=== PATIENT | female | born 1950 | race Caucasian/White ===

== ENCOUNTER 2018-06-16 00:53 | Outpatient (CLI) | payer MEDICARE, OTHER, SELFPAY ==
--- NOTE | 2018-06-16 08:00 | DI.MAMMO_ITS ---
SYMPTOM/DIAGNOSIS: SCREENING, Z12.39 MAMMOGRAMS: Mammograms were interpreted according to the usual protocol including computer analysis with CAD system, tomosynthesis and C view imaging. The breasts are of moderate density with fairly symmetrical distribution of fibroglandular tissue. No dominant mass or clumped microcalcification is identified in either breast. Note is made of biopsy clips in the medial aspect of the left breast as noted on previous examinations. The examination is compared with previous examinations including 12/2015 and there has been no gross interval change in appearance in comparison with the previous studies. CONCLUSION: No specific evidence of malignancy at this time. Routine screening examinations are suggested at yearly intervals due to the family history of breast carcinoma. Category 1. Breast density, category B. MQSA ASSESSMENT OF FINDINGS: Negative. Category 1. Patient will receive a letter notifying them of these results. BI-RADS category B. There are scattered areas of fibroglandular density.
== END 2018-06-16 01:13 ==
PROVIDERS: PCP Family Medicine; Visit Provider Family Medicine
DX: Z12.31 Encounter for screening mammogram for malignant neoplasm of breast (principal); Z80.3 Family history of malignant neoplasm of breast
CPT/HCPCS: 77063; 77067

== ENCOUNTER → 2018-11-20 10:18 | Outpatient (BNVA) | payer MEDICARE, OTHER, SELFPAY | PROVIDERS: PCP Family Medicine; Referring Provider Family Medicine; Visit Provider Physical Therapy Assistant | DX: Z86.010 Personal history of colon polyps (principal); Z12.11 Encounter for screening for malignant neoplasm of colon; I10 Essential (primary) hypertension ==

== ENCOUNTER 2018-12-01 11:09 | Observation (INO) | payer MEDICARE, OTHER, SELFPAY ==
[2018-12-01] VITALS (49 sets, daily range): BP systolic 128–182; BP diastolic 63–101; PULSE 67–91; RESP 12–77; TEMP 36.2–37.1; O2SAT 95–100
--- NOTE | 2018-12-01 11:17 | DI.RAD_ITS ---
SYMPTOMS/DIAGNOSIS: CHEST PAIN AP AND LATERAL CHEST: The heart is at the upper limits of normal in size. The lungs appear grossly clear. No pleural effusion seen. CONCLUSION: No evidence of acute disease.
--- NOTE | 2018-12-01 11:17 | DI.CT_ITS ---
SYMPTOMS/DIAGNOSIS: ALTERED MENTAL STATUS, TRANSIENT NOW AT BASELINE WITH HEADACHE CRANIAL CT (WITHOUT CONTRAST): A noncontrast cranial CT was performed. The ventricular system is normal in appearance. There is no evidence of an intracranial mass lesion. There is no evidence of a subdural or epidural hematoma. No focal areas of decreased attenuation are seen. CONCLUSION: Normal noncontrast Cranial CT.
[2018-12-01 11:37] LABS: Abs Immature Grans 0.07 k/cumm (0.0-0.09); Absolute Basophil Count 0.03 k/cumm (0.0-0.2); Absolute Eosinophil Count 0.06 k/cumm (0.0-0.7); Absolute Lymphocyte Count 1.36 k/cumm (1.2-3.4); Absolute Monocyte Count 0.81 k/cumm (0.11-0.7); Absolute Neutrophil Count 4.89 k/cumm (1.2-6.7); Basophils % 0.4; Eosinophils % 0.8; HCT 44.3 % (36.0-46.0); HGB 14.7 g/dL (12.0-15.5); Lymphocytes % 18.8; Mean Corp. HGB Concentration 33.2 g/dL (32.0-36.0); Mean Corpuscular Hemoglobin 31.1 pg (27.0-33.0); Mean Corpuscular Volume 93.7 fL (80-95); Mean Platelet Volume 10.6 fL (8.0-11.0); Monocytes % 11.2; Neutrophils % 67.8; Platelet Count 189 x1000/uL (130-400); RBC 4.73 m/cumm (4.00-5.20); RBC Distribution Width 12.9 % (11.7-14.6); White Blood Cell Count 7.22 k/cumm (4.4-10.8)
--- NOTE | 2018-12-01 11:37 | W.ED.GENAD ---
Discharge Plan Disposition Condition: Stable Discharge Details Chief Complaint: Chest Pain Admit Date/Time: 12/01/18 14:25 Admit Provider: Aguilar Blake Attending Provider: Noel Moreno Primary Care Provider: Anat Vicente ED Provider: Queenie Calderon Discharge Instructions Activity:: No strenuous activity Equipment/Supplies:: No Equipment Needed Diet:: Heart Healthy Discharge Orders Discharge Orders: Discharge Order (Routine); Ordered 12/02/18 Ordered By: Noel Moreno Discharge Data Discharge Date/Time-TO BE ENTERED AT DEPARTURE: 12/01/18 15:46 Medical Decision Making Tena Nickerson is a 68 y/o woman with history of hypertension, high cholesterol, coronary artery disease, polymyalgia rheumatica, temporal arteritis who presented to the emergency department with chest pain and possible report of garbled speech. On exam patient is neurologically nonfocal and appears well and nontoxic. Concern for ACS versus PE versus influenza versus other. Exam/history is not consistent with acute aortic pathology, sepsis. plan for EKG, screening labs, chest x-ray. Will obtain CT head given report of garbled speech and no family currently in the emergency department. Patient took patient took 243 mg of aspirin prior to arrival. Patient had rapid resolution of her chest pain prior to receiving nitroglycerin, none was given. However, she developed what she described as severe pain in her right temporal region. Patient reports that she has a history of temporal arteritis, and has had similar pain in the past, but not for 5 years since starting prednisone. She currently takes 5 mg of prednisone daily. Patient reports that pain is in the temporal region and behind her right eye, and radiates into her right neck. She reports reports that the pain is severe as above, but notes that it does not seem quite as bad as when she was first diagnosed with temporal arteritis years ago. Plan for CTA of the head and neck in addition to CT of the head. Patient reports that morphine improved her pain. CT head, CTA head and neck reported by radiology as negative. Patient reporting some return of her temporal headache, now in episcopalian area bilaterally. Patient reports that this is not the worst headache of her life, however she has not had a similar headache for years. Not maximal at onset. Elevated. That she is not however not having any current chest pain. Patient's family is at bedside, and they note that patient has been complaining of intermittent chest pressure for the last few days, also with shortness of breath. They state that this is not typical for her. I discussed risks of additional IV contrast dye at this point the patient and her family, and they elect to go forward with CT of the chest. Plan for admission at this time for chest pain, bilateral temporal headache in setting of temporal arteritis, anion gap of 16 of unknown etiology. Clinical Impresion: Chest pain Disposition: [facility] Medical Records Medical records reviewed: Yes I reviewed the patient's medical records. Imaging Data Radiologic Study: Attestation: I personally reviewed and interpreted this imaging study as follows: Radiologist's impression: CRANIAL CT (WITHOUT CONTRAST): A noncontrast cranial CT was performed. The ventricular system is normal in appearance. There is no evidence of an intracranial mass lesion. There is no evidence of a subdural or epidural hematoma. No focal areas of decreased attenuation are seen. CONCLUSION: Normal noncontrast Cranial CT. CT ANGIOGRAM NECK AND HEAD: CT angiography was performed with multi slice acquisition and multi planar and 3D reconstruction. CT angiography of the cervicocranial region was performed. Images obtained through the lung bases show no focal lesion. Superior mediastinal structures appear intact. The aortic arch is unremarkable as visualized. Common, internal and external carotid arteries appear intact bilaterally. No evidence of aneurysm, dissection or significant stenosis of common or internal carotid arteries on either side. The vertebral arteries appear intact bilaterally with right dominant pattern. The basilar artery appears intact. No evidence of aneurysm, stenosis, dissection or occlusion of intracranial major arteries including internal carotid artery, middle, anterior or posterior cerebral arteries on either side. The major branches appear intact throughout. No enhancing lesion identified in the brain. The orbital structures appear normal. No cervical mass or adenopathy. The tracheal laryngeal structures appear intact. CONCLUSION: Negative CT Angiography neck and head. AP AND LATERAL CHEST: The heart is at the upper limits of normal in size. The lungs appear grossly clear. No pleural effusion seen. CONCLUSION: No evidence of acute disease. CT chest PE over the phone by radiology: Negative for PE or other acute process Lab Data Lab results reviewed: Yes I reviewed the patient's lab results. 12/01/18 11:20 Nose Influenza Types A,B Antigen - Final Laboratory Tests Range/Units 12/01/18 12/01/18 12/01/18 11:20 11:20 11:20 WBC (4.4-10.8) k/cumm 7.22 RBC (4.00-5.20) m/cumm 4.73 Hgb (12.0-15.5) g/dL 14.7 Hct (36.0-46.0) % 44.3 MCV (80-95) fL 93.7 MCH (27.0-33.0) pg 31.1 MCHC (32.0-36.0) g/dL 33.2 RDW (11.7-14.6) % 12.9 Plt Count (130-400) x1000/uL 189 MPV (8.0-11.0) fL 10.6 Immature Gran % 1.0 Neutrophils % 67.8 Lymphocytes % 18.8 Monocytes % 11.2 Eosinophils % 0.8 Basophils % 0.4 Absolute Neutrophils (1.2-6.7) k/cumm 4.89 Absolute Lymphocytes (1.2-3.4) k/cumm 1.36 Absolute Monocytes (0.11-0.7) k/cumm 0.81 H Absolute Eosinophils (0.0-0.7) k/cumm 0.06 Absolute Basophils (0.0-0.2) k/cumm 0.03 ESR (0-30) MM/HR D-Dimer (<500) ng/mlFEU 1088 H Sodium (136-145) mmol/L 136 Potassium (3.5-5.1) mmol/L 3.5 Chloride (98-107) mmol/L 99 Carbon Dioxide (21.0-32.0) mmol/L 20.7 L Anion Gap (3-11) mmol/L 16.3 H BUN (7-18) mg/dL 18 Creatinine (0.55-1.02) mg/dL 1.01 Estimated GFR/1.73 m2 (mL/min/1.73m2) 54.35 Glucose (70-100) mg/dL 98 Calcium (8.5-10.1) mg/dL 9.2 Magnesium (1.8-2.4) mg/dL 1.8 Total Bilirubin (0.2-1.0) mg/dL 0.4 AST (15-37) U/L 10 L ALT (12-78) U/L 26 Alkaline Phosphatase (46-116) U/L 84 Troponin I (0.00-0.06) ng/mL < 0.02 C-Reactive Protein (0.0-0.3) mg/dL Total Protein (6.4-8.2) g/dL 7.6 Albumin (3.4-5.0) g/dL 3.6 Range/Units 12/01/18 12/01/18 11:20 11:20 WBC (4.4-10.8) k/cumm RBC (4.00-5.20) m/cumm Hgb (12.0-15.5) g/dL Hct (36.0-46.0) % MCV (80-95) fL MCH (27.0-33.0) pg MCHC (32.0-36.0) g/dL RDW (11.7-14.6) % Plt Count (130-400) x1000/uL MPV (8.0-11.0) fL Immature Gran % Neutrophils % Lymphocytes % Monocytes % Eosinophils % Basophils % Absolute Neutrophils (1.2-6.7) k/cumm Absolute Lymphocytes (1.2-3.4) k/cumm Absolute Monocytes (0.11-0.7) k/cumm Absolute Eosinophils (0.0-0.7) k/cumm Absolute Basophils (0.0-0.2) k/cumm ESR (0-30) MM/HR 36 H D-Dimer (<500) ng/mlFEU Sodium (136-145) mmol/L Potassium (3.5-5.1) mmol/L Chloride (98-107) mmol/L Carbon Dioxide (21.0-32.0) mmol/L Anion Gap (3-11) mmol/L BUN (7-18) mg/dL Creatinine (0.55-1.02) mg/dL Estimated GFR/1.73 m2 (mL/min/1.73m2) Glucose (70-100) mg/dL Calcium (8.5-10.1) mg/dL Magnesium (1.8-2.4) mg/dL Total Bilirubin (0.2-1.0) mg/dL AST (15-37) U/L ALT (12-78) U/L Alkaline Phosphatase (46-116) U/L Troponin I (0.00-0.06) ng/mL C-Reactive Protein (0.0-0.3) mg/dL 0.76 H Total Protein (6.4-8.2) g/dL Albumin (3.4-5.0) g/dL ECG Data Attestation: I personally reviewed and interpreted this ECG (s) as follows: Interpretation: EKG shows sinus rhythm at 84, normal axis, diffuse ST changes seen on prior EKG 10/17, nondiagnostic EKG HPI General Mode of arrival: EMS. Date/Time Provider Initiated Documentation: 12/01/18 11:17. Limitations to Documentation: no limitations. Information obtained by: patient, family, EMS, RN notes reviewed and old records reviewed. HPI Narrative: Tena Nickerson is a 68 y/o woman with history of polymyalgia rheumatica, sleep apnea, hypertension, coronary artery disease, GERD, high cholesterol presenting to the emergency room with chest pain. Patient reports that this morning she developed mild chest pressure retrosternally, nonradiating. Nonexertional, no modifiers. There was report from EMS that family had called 911 because patient seemed to have a change in her speech, but patient denies this. She denies any loss of consciousness or confusion. She denies having any other pain. She reports that she has felt tired and had a dry cough yesterday and today, but otherwise has not had other symptoms. No fevers, no shortness of breath, no cough, no vomiting, no diarrhea, no rash, no extremity weakness, no numbness/tingling. No recent travel or immobilization. Related Data Home Medications Medication Instructions Recorded Confirmed metoprolol succinate 25 mg PO DAILY #90 tab 12/01/12 12/01/18 pantoprazole 40 mg PO DAILY #30 tab-cap 03/11/13 12/01/18 simvastatin 20 mg PO DAILY #90 tab 03/11/13 12/01/18 chlorthalidone 12.5 mg PO DAILY #45 tab 06/15/13 12/01/18 meclizine 12.5 mg PO Q6H PRN #5 tab 05/19/14 12/01/18 acetaminophen [Tylenol] 650 mg PO Q6H PRN tab-cap 11/23/14 12/01/18 amlodipine 5 mg PO DAILY tab-cap 11/23/14 12/01/18 calcium carbonate-vitamin D3 1 ea PO BID 11/23/14 12/01/18 [Os-Tony 500 + D3] albuterol sulfate HFA 90 1 puff IH Q6H PRN 09/30/18 12/01/18 mcg/actuation aerosol inhaler hydroxyzine HCl 25 mg tablet 25 mg PO BID PRN tab 09/30/18 12/01/18 ipratropium-albuterol 0.5 mg-3 3 ml IH Q8H 09/30/18 11/20/18 mg(2.5 mg base)/3 mL nebulization soln prednisone 1 mg tablet 5 mg PO DAILY tab 09/30/18 12/01/18 trazodone 50 mg tablet See Rx Instructions .ROUTE .COMPLEX 09/30/18 12/01/18 aspirin [Aspir-Low] 1 mg PO DAILY 12/01/18 12/01/18 diclofenac sodium [Voltaren] 2 g TOPICAL QID 12/01/18 12/01/18 fluticasone propion-salmeterol 1 inh INHALATION Q12H 12/01/18 12/01/18 levalbuterol tartrate [Xopenex HFA] 2 inh INHALATION Q6H 12/01/18 12/01/18 citalopram 40 mg PO DAILY #90 tab 12/02/18 12/01/18 levofloxacin 500 mg PO DAILY #7 tab 12/02/18 prednisone 10 mg PO DAILY #14 tab 12/02/18 Previous Rx's Medication Instructions Recorded meclizine 12.5 mg PO Q6H PRN #5 tab 05/19/14 citalopram 40 mg PO DAILY #90 tab 12/02/18 levofloxacin 500 mg PO DAILY #7 tab 12/02/18 prednisone 10 mg PO DAILY #14 tab 12/02/18 Allergies Allergy/AdvReac Type Severity Reaction Status Date / Time clarithromycin Allergy Severe HIVES Verified 11/20/18 10:28 Penicillins Allergy Severe HIVES Verified 11/20/18 10:28 tetracycline Allergy Severe HIVES, Verified 11/20/18 10:28 HALLUCINATIONS Bisphosphonates Allergy Unknown Verified 11/20/18 10:28 eszopiclone [Eszopiclone] Allergy Unknown Verified 11/20/18 10:28 hydrocodone [Hydrocodone] Allergy Unknown Verified 11/20/18 10:28 Macrolide Antibiotics Allergy Unknown Verified 11/20/18 10:28 morphine Allergy Unknown Verified 11/20/18 10:28 telithromycin [Telithromycin] Allergy Unknown Verified 11/20/18 10:28 raloxifene HCl [From Evista] AdvReac Intermediate BODY ACHES Verified 11/20/18 10:28 sulfamethoxazole AdvReac Intermediate HEADACHE,VO Verified 11/20/18 10:28 [From Bactrim] MITING trimethoprim [From Bactrim] AdvReac Intermediate HEADACHE,VO Verified 11/20/18 10:28 MITING alendronate sodium AdvReac Mild BODY ACHE Verified 11/20/18 10:28 codeine AdvReac Mild GI UPSET Verified 11/20/18 10:28 risedronate sodium AdvReac Mild BODY ACHES Verified 11/20/18 10:28 [From Actonel] General Stated Complaint: Chest Pain TENA: 2 Review of Systems Review of Systems Constitutional: denies fevers, reports fatigue Eyes: denies eye pain ENT: denies facial pain, dental pain, sore throat Cardiovascular: denies edema, reports chest pain Respiratory: denies SOB, reports cough GI: denies abdominal pain, vomiting, diarrhea : denies flank pain MSK: denies back pain, neck pain, arthralgias, myalgias Skin: denies rash Neuro: denies headaches, numbness, weakness [facility] Medical History Polymyalgia rheumatica (Chronic) Anxiety and depression (Chronic) Sleep apnea (Chronic) Benign essential hypertension (Chronic) Temporal arteritis (Acute) Hyperlipemia (Chronic) DJD (degenerative joint disease) (Chronic) Hypertension (Chronic) GERD (gastroesophageal reflux disease) (Chronic) Pulmonary nodule (Resolved) Obesity (Chronic) Osteoarthritis (Chronic) Abnormal colonoscopy (Resolved 11/11/15) Adenomatous colon polyp (Resolved) Surgical History Bilateral salpingectomy with oophorectomy (Resolved ~12/2006) Hysterectomy, Laproscopic (Resolved) Family History Other Cancer Social History Smoking/Tobacco Use Status: Former Tobacco Use Alcohol Intake: current Alcohol Intake frequency: 0-2 drinks per day Alcohol type: wine Drug use: Never Do you feel safe at home: Yes Do you feel safe in your relationship?: Yes Exam Narrative Exam Narrative: Constitutional: well and [id number], pleasant, conversing normally HENT: head atraumatic/normocephalic/normal inspection, mucous membranes moist Eyes: conjunctiva normal, sclera normal, pupils 3mm b/l Neck: no stridor, normal ROM, trachea midline Chest: normal inspection, chest nontender to palpation Resp: normal work of breathing, LCTAB Cardio: normal rate, normal rhythm GI: abdomen soft, non-tender, non-distended Back: normal inspection, no rash Skin: warm, dry, normal color, no rash Neuro: alert, not altered, grossly non-focal, normal tone, motor 5 out of 5 throughout Ext: no edema, no posterior calf tenderness to palpation Psych: normal mood, normal affect, normal behavior Course Vital Signs Temperature 36.5 C 12/01/18 11:16 Pulse 82 12/01/18 11:16 Respiratory Rate 16 12/01/18 11:16 Blood Pressure 160/86 H 12/01/18 11:16 Pulse Oximetry 98 12/01/18 11:16 Temperature 36.5 C 12/01/18 11:16 Temperature Source Skin 12/01/18 11:16 Pulse 82 12/01/18 11:16 Respiratory Rate 16 12/01/18 11:16 Blood Pressure 160/86 H 12/01/18 11:16 Blood Pressure Position Sitting 12/01/18 11:16 Pulse Oximetry 98 12/01/18 11:16 Oxygen Delivery Method Room Air 12/01/18 11:16 Oxygen Flow Rate 0 12/01/18 11:16 Pain Level 3 12/01/18 11:16 Lab/Test Results Lab/Test Results: 12/01/18 11:20 Nose Influenza Types A,B Antigen - Pending
--- NOTE | 2018-12-01 11:46 | DI.CT_ITS ---
SYMPTOMS/DIAGNOSIS: HEADACHE, NECK PAIN, ALTERED MENTAL STATUS CT ANGIOGRAM NECK AND HEAD: CT angiography was performed with multi slice acquisition and multi planar and 3D reconstruction. CT angiography of the cervicocranial region was performed. Images obtained through the lung bases show no focal lesion. Superior mediastinal structures appear intact. The aortic arch is unremarkable as visualized. Common, internal and external carotid arteries appear intact bilaterally. No evidence of aneurysm, dissection or significant stenosis of common or internal carotid arteries on either side. The vertebral arteries appear intact bilaterally with right dominant pattern. The basilar artery appears intact. No evidence of aneurysm, stenosis, dissection or occlusion of intracranial major arteries including internal carotid artery, middle, anterior or posterior cerebral arteries on either side. The major branches appear intact throughout. No enhancing lesion identified in the brain. The orbital structures appear normal. No cervical mass or adenopathy. The tracheal laryngeal structures appear intact. CONCLUSION: Negative CT Angiography neck and head.
[2018-12-01 11:56] LABS: ALT 26 U/L (12-78); AST 10 U/L (15-37); Albumin 3.6 g/dL (3.4-5.0); Alkaline Phosphatase 84 U/L (46-116); Anion Gap 16.3 mmol/L (3-11); BUN 18 mg/dL (7-18); Bilirubin, Total 0.4 mg/dL (0.2-1.0); CO2 20.7 mmol/L (21.0-32.0); CREATININE 1.01 mg/dL (0.55-1.02); Calcium 9.2 mg/dL (8.5-10.1); Chloride 99 mmol/L (98-107); Estimated GFR 54.35 (mL/min/1.73m2); Glucose 98 mg/dL (70-100); Magnesium 1.8 mg/dL (1.8-2.4); Potassium 3.5 mmol/L (3.5-5.1); Sodium 136 mmol/L (136-145); Total Protein 7.6 g/dL (6.4-8.2)
[2018-12-01 12:00] LABS: Troponin I < 0.02 ng/mL (0.00-0.06)
[2018-12-01 12:05] LABS: D-Dimer 1088 ng/mlFEU (<500)
[2018-12-01] MEDS: Omnipaque 350 MG/ML 100 ML BTL IJ ×2 (12:13→14:25)
[2018-12-01] MEDS: MORPHine 10 MG/ML VIAL 2 MG IVP ×2 (12:15→13:13)
--- NOTE | 2018-12-01 12:15 | ED.GENADUL_ITS ---
Discharge Plan Disposition Condition: Stable Discharge Details Chief Complaint: Chest Pain Admit Date/Time: 12/01/18 14:25 Admit Provider: Aguilar Blake Attending Provider: Noel Moreno Primary Care Provider: Anat Vicente ED Provider: Queenie Calderon Discharge Instructions Activity:: No strenuous activity Equipment/Supplies:: No Equipment Needed Diet:: Heart Healthy Discharge Orders Discharge Orders: Discharge Order (Routine); Ordered 12/02/18 Ordered By: Noel Moreno Discharge Data Discharge Date/Time-TO BE ENTERED AT DEPARTURE: 12/01/18 15:46 Medical Decision Making Tena Nickerson is a 68 y/o woman with history of hypertension, high cholesterol, coronary artery disease, polymyalgia rheumatica, temporal arteritis who presented to the emergency department with chest pain and possible report of garbled speech. On exam patient is neurologically nonfocal and appears well and nontoxic. Concern for ACS versus PE versus influenza versus other. Exam/history is not consistent with acute aortic pathology, sepsis. plan for EKG, screening labs, chest x-ray. Will obtain CT head given report of garbled speech and no family currently in the emergency department. Patient took patient took 243 mg of aspirin prior to arrival. Patient had rapid resolution of her chest pain prior to receiving nitroglycerin, none was given. However, she developed what she described as severe pain in her right temporal region. Patient reports that she has a history of temporal arteritis, and has had similar pain in the past, but not for 5 years since starting prednisone. She currently takes 5 mg of prednisone daily. Patient reports that pain is in the temporal region and behind her right eye, and radiates into her right neck. She reports reports that the pain is severe as above, but notes that it does not seem quite as bad as when she was first diagnosed with temporal arteritis years ago. Plan for CTA of the head and neck in addition to CT of the head. Patient reports that morphine improved her pain. CT head, CTA head and neck reported by radiology as negative. Patient reporting some return of her temporal headache, now in mormonism area bilaterally. Patient reports that this is not the worst headache of her life, however she has not had a similar headache for years. Not maximal at onset. Elevated. That she is not however not having any current chest pain. Patient's family is at bedside, and they note that patient has been complaining of intermittent chest pressure for the last few days, also with shortness of breath. They state that this is not typical for her. I discussed risks of additional IV contrast dye at this point the patient and her family, and they elect to go forward with CT of the chest. Plan for admission at this time for chest pain, bilateral temporal headache in setting of temporal arteritis, anion gap of 16 of unknown etiology. Clinical Impresion: Chest pain Disposition: [facility] Medical Records Medical records reviewed: Yes I reviewed the patient's medical records. Imaging Data Radiologic Study: Attestation: I personally reviewed and interpreted this imaging study as follows: Radiologist's impression: CRANIAL CT (WITHOUT CONTRAST): A noncontrast cranial CT was performed. The ventricular system is normal in appearance. There is no evidence of an intracranial mass lesion. There is no evidence of a subdural or epidural hematoma. No focal areas of decreased attenuation are seen. CONCLUSION: Normal noncontrast Cranial CT. CT ANGIOGRAM NECK AND HEAD: CT angiography was performed with multi slice acquisition and multi planar and 3D reconstruction. CT angiography of the cervicocranial region was performed. Images obtained through the lung bases show no focal lesion. Superior mediastinal structures appear intact. The aortic arch is unremarkable as visualized. Common, internal and external carotid arteries appear intact bilaterally. No evidence of aneurysm, dissection or significant stenosis of common or internal carotid arteries on either side. The vertebral arteries appear intact bilaterally with r ight dominant pattern. The basilar artery appears intact. No evidence of aneurysm, stenosis, dissection or occlusion of intracranial major arteries including internal carotid artery, middle, anterior or posterior cerebral arteries on either side. The major branches appear intact throughout. No enhancing lesion identified in the brain. The orbital structures appear normal. No cervical mass or adenopathy. The tracheal laryngeal structures appear intact. CONCLUSION: Negative CT Angiography neck and head. AP AND LATERAL CHEST: The heart is at the upper limits of normal in size. The lungs appear grossly clear. No pleural effusion seen. CONCLUSION: No evidence of acute disease. CT chest PE over the phone by radiology: Negative for PE or other acute process Lab Data Lab results reviewed: Yes I reviewed the patient's lab results. 12/01/18 11:20 Nose Influenza Types A,B Antigen - Final Laboratory Tests Range/Units 12/01/18 12/01/18 12/01/18 11:20 11:20 11:20 WBC (4.4-10.8) k/cumm 7.22 RBC (4.00-5.20) m/cumm 4.73 Hgb (12.0-15.5) g/dL 14.7 Hct (36.0-46.0) % 44.3 MCV (80-95) fL 93.7 MCH (27.0-33.0) pg 31.1 MCHC (32.0-36.0) g/dL 33.2 RDW (11.7-14.6) % 12.9 Plt Count (130-400) x1000/uL 189 MPV (8.0-11.0) fL 10.6 Immature Gran % 1.0 Neutrophils % 67.8 Lymphocytes % 18.8 Monocytes % 11.2 Eosinophils % 0.8 Basophils % 0.4 Absolute Neutrophils (1.2-6.7) k/cumm 4.89 Absolute Lymphocytes (1.2-3.4) k/cumm 1.36 Absolute Monocytes (0.11-0.7) k/cumm 0.81 H Absolute Eosinophils (0.0-0.7) k/cumm 0.06 Absolute Basophils (0.0-0.2) k/cumm 0.03 ESR (0-30) MM/HR D-Dimer (<500) ng/mlFEU 1088 H Sodium (136-145) mmol/L 136 Potassium (3.5-5.1) mmol/L 3.5 Chloride (98-107) mmol/L 99 Carbon Dioxide (21.0-32.0) mmol/L 20.7 L Anion Gap (3-11) mmol/L 16.3 H BUN (7-18) mg/dL 18 Creatinine (0.55-1.02) mg/dL 1.01 Estimated GFR/1.73 m2 (mL/min/1.73m2) 54.35 Glucose (70-100) mg/dL 98 Calcium (8.5-10.1) mg/dL 9.2 Magnesium (1.8-2.4) mg/dL 1.8 Total Bilirubin (0.2-1.0) mg/dL 0.4 AST (15-37) U/L 10 L ALT (12-78) U/L 26 Alkaline Phosphatase (46-116) U/L 84 Troponin I (0.00-0.06) ng/mL < 0.02 C-Reactive Protein (0.0-0.3) mg/dL Total Protein (6.4-8.2) g/dL 7.6 Albumin (3.4-5.0) g/dL 3.6 Range/Units 12/01/18 12/01/18 11:20 11:20 WBC (4.4-10.8) k/cumm RBC (4.00-5.20) m/cumm Hgb (12.0-15.5) g/dL Hct (36.0-46.0) % MCV (80-95) fL MCH (27.0-33.0) pg MCHC (32.0-36.0) g/dL RDW (11.7-14.6) % Plt Count (130-400) x1000/uL MPV (8.0-11.0) fL Immature Gran % Neutrophils % Lymphocytes % Monocytes % Eosinophils % Basophils % Absolute Neutrophils (1.2-6.7) k/cumm Absolute Lymphocytes (1.2-3.4) k/cumm Absolute Monocytes (0.11-0.7) k/cumm Absolute Eosinophils (0.0-0.7) k/cumm Absolute Basophils (0.0-0.2) k/cumm ESR (0-30) MM/HR 36 H D-Dimer (<500) ng/mlFEU Sodium (136-145) mmol/L Potassium (3.5-5.1) mmol/L Chloride (98-107) mmol/L Carbon Dioxide (21.0-32.0) mmol/L Anion Gap (3-11) mmol/L BUN (7-18) mg/dL Creatinine (0.55-1.02) mg/dL Estimated GFR/1.73 m2 (mL/min/1.73m2) Glucose (70-100) mg/dL Calcium (8.5-10.1) mg/dL Magnesium (1.8-2.4) mg/dL Total Bilirubin (0.2-1.0) mg/dL AST (15-37) U/L ALT (12-78) U/L Alkaline Phosphatase (46-116) U/L Troponin I (0.00-0.06) ng/mL C-Reactive Protein (0.0-0.3) mg/dL 0.76 H Total Protein (6.4-8.2) g/dL Albumin (3.4-5.0) g/dL ECG Data Attestation: I personally reviewed and interpreted this ECG (s) as follows: Interpretation: EKG shows sinus rhythm at 84, normal axis, diffuse ST changes seen on prior EKG 10/17, nondiagnostic EKG HPI General Mode of arrival: EMS . Date/Time Provider Initiated Documentation: 12/01/18 11:17 . Limitations to Documentation: no limitations . Information obtained by: patient, family, EMS, RN notes reviewed and old records reviewed . HPI Narrative: Tena Nickerson is a 68 y/o woman with history of polymyalgia rheumatica, sleep apnea, hypertension, coronary artery disease, GERD, high cholesterol presenting to the emergency room with chest pain. Patient reports that this morning she developed mild chest pressure retrosternally, nonradiating. Nonexertional, no modifiers. There was report from EMS that family had called 911 because patient seemed to have a change in her speech, but patient denies this. She denies any loss of consciousness or confusion. She denies having any other pain. She reports that she has felt tired and had a dry cough yesterday and today, but otherwise has not had other s ymptoms. No fevers, no shortness of breath, no cough, no vomiting, no diarrhea, no rash, no extremity weakness, no numbness/tingling. No recent travel or immobilization. Related Data Home Medications Medication Instructions Recorded Confirmed metoprolol succinate 25 mg PO DAILY #90 tab 12/01/12 12/01/18 pantoprazole 40 mg PO DAILY #30 tab-cap 03/11/13 12/01/18 simvastatin 20 mg PO DAILY #90 tab 03/11/13 12/01/18 chlorthalidone 12.5 mg PO DAILY #45 tab 06/15/13 12/01/18 meclizine 12.5 mg PO Q6H PRN #5 tab 05/19/14 12/01/18 acetaminophen [Tylenol] 650 mg PO Q6H PRN tab-cap 11/23/14 12/01/18 amlodipine 5 mg PO DAILY tab-cap 11/23/14 12/01/18 calcium carbonate-vitamin D3 1 ea PO BID 11/23/14 12/01/18 [Os-Tony 500 + D3] albuterol sulfate HFA 90 1 puff IH Q6H PRN 09/30/18 12/01/18 mcg/actuation aerosol inhaler hydroxyzine HCl 25 mg tablet 25 mg PO BID PRN tab 09/30/18 12/01/18 ipratropium-albuterol 0.5 mg-3 3 ml IH Q8H 09/30/18 11/20/18 mg(2.5 mg base)/3 mL nebulization soln prednisone 1 mg tablet 5 mg PO DAILY tab 09/30/18 12/01/18 trazodone 50 mg tablet See Rx Instructions .ROUTE .COMPLEX 09/30/18 12/01/18 aspirin [Aspir-Low] 1 mg PO DAILY 12/01/18 12/01/18 diclofenac sodium [Voltaren] 2 g TOPICAL QID 12/01/18 12/01/18 fluticasone propion-salmeterol 1 inh INHALATION Q12H 12/01/18 12/01/18 levalbuterol tartrate [Xopenex HFA] 2 inh INHALATION Q6H 12/01/18 12/01/18 citalopram 40 mg PO DAILY #90 tab 12/02/18 12/01/18 levofloxacin 500 mg PO DAILY #7 tab 12/02/18 prednisone 10 mg PO DAILY #14 tab 12/02/18 Previous Rx's Medication Instructions Recorded meclizine 12.5 mg PO Q6H PRN #5 tab 05/19/14 citalopram 40 mg PO DAILY #90 tab 12/02/18 levofloxacin 500 mg PO DAILY #7 tab 12/02/18 prednisone 10 mg PO DAILY #14 tab 12/02/18 Allergies Allergy/AdvReac Type Severity Reaction Status Date / Time clarithromycin Allergy Severe HIVES Verified 11/20/18 10:28 Penicillins Allergy Severe HIVES Verified 11/20/18 10:28 tetracycline Allergy Severe HIVES, Verified 11/20/18 10:28 HALLUCINATIONS Bisphosphonates Allergy Unknown Verified 11/20/18 10:28 eszopiclone [Eszopiclone] Allergy Unknown Verified 11/20/18 10:28 hydrocodone [Hydrocodone] Allergy Unknown Verified 11/20/18 10:28 Macrolide Antibiotics Allergy Unknown Verified 11/20/18 10:28 morphine Allergy Unknown Verified 11/20/18 10:28 telithromycin [Telithromycin] Allergy Unknown Verified 11/20/18 10:28 raloxifene HCl [From Evista] AdvReac Intermediate BODY ACHES Verified 11/20/18 10:28 sulfamethoxazole AdvReac Intermediate HEADACHE,VO Verified 11/20/18 10:28 [From Bactrim] MITING trimethoprim [From Bactrim] AdvReac Intermediate HEADACHE,VO Verified 11/20/18 10:28 MITING alendronate sodium AdvReac Mild BODY ACHE Verified 11/20/18 10:28 codeine AdvReac Mild GI UPSET Verified 11/20/18 10:28 risedronate sodium AdvReac Mild BODY ACHES Verified 11/20/18 10:28 [From Actonel] General Stated Complaint: Chest Pain TENA: 2 Review of Systems Review of Systems Constitutional: denies fevers, reports fatigue Eyes: denies eye pain ENT: denies facial pain, dental pain, sore throat Cardiovascular: denies edema, reports chest pain Respiratory: denies SOB, reports cough GI: denies abdominal pain, vomiting, diarrhea : denies flank pain MSK: denies back pain, neck pain, arthralgias, myalgias Skin: denies rash Neuro: denies headaches, numbness, weakness [facility] Medical History Polymyalgia rheumatica (Chronic) Anxiety and depression (Chronic) Sleep apnea (Chronic) Benign essential hypertension (Chronic) Temporal arteritis (Acute) Hyperlipemia (Chronic) DJD (degenerative joint disease) (Chronic) Hypertension (Chronic) GERD (gastroesophageal reflux disease) (Chronic) Pulmonary nodule (Resolved) Obesity (Chronic) Osteoarthritis (Chronic) Abnormal colonoscopy (Resolved 11/11/15) Adenomatous colon polyp (Resolved) Surgical History Bilateral salpingectomy with oophorectomy (Resolved ~12/2006) Hysterectomy, Laproscopic (Resolved) Family History Other Cancer Social History Smoking/Tobacco Use Status: Former Tobacco Use Alcohol Intake: current Alcohol Intake frequency: 0-2 drinks per day Alcohol type: wine Drug use: Never Do you feel safe at home: Yes Do you feel safe in your relationship?: Yes Exam Narrative Exam Narrative: Constitutional: well and [id number], pleasant, conversing normally HENT: head atraumatic/normocephalic/normal inspection, mucous membranes moist Eyes: conjunctiva normal, sclera normal, pupils 3mm b/l Neck: no stridor, normal ROM, trachea midline Chest: normal inspection, chest nontender to palpation Resp: normal work of breathing, LCTAB Cardio: normal rate, normal rhythm GI: abdomen soft, non-tender, non-distended Back: normal inspection, no rash Skin: warm, dry, normal color, no rash Neuro: alert, not altered, grossly non-focal, normal tone, motor 5 out of 5 throughout Ext: no edema, no posterior calf tenderness to palpation Psych: normal mood, normal affect, normal behavior Course Vital Signs Temperature 36.5 C 12/01/18 11:16 Pulse 82 12/01/18 11:16 Respiratory Rate 16 12/01/18 11:16 Blood Pressure 160/86 H 12/01/18 11:16 Pulse Oximetry 98 12/01/18 11:16 Temperature 36.5 C 12/01/18 11:16 Temperature Source Skin 12/01/18 11:16 Pulse 82 12/01/18 11:16 Respiratory Rate 16 12/01/18 11:16 Blood Pressure 160/86 H 12/01/18 11:16 Blood Pressure Position Sitting 12/01/18 11:16 Pulse Oximetry 98 12/01/18 11:16 Oxygen Delivery Method Room Air 12/01/18 11:16 Oxygen Flow Rate 0 12/01/18 11:16 Pain Level 3 12/01/18 11:16 Lab/Test Results Lab/Test Results: 12/01/18 11:20 Nose Influenza Types A,B Antigen - Pending
[2018-12-01] MEDS: methylPREDNISolone SUCC 125 MG VIAL IVP (13:12)
--- NOTE | 2018-12-01 13:31 | DI.CT_ITS ---
SYMPTOMS/DIAGNOSIS: CHEST PAIN, ELEVATED D-DIMER CT ANGIOGRAPHY, CHEST: CT angiography was performed with multi slice acquisition and multi planar and 3D reconstruction. CT angiography of the chest was performed with bolus infusion of 75 cc of Omnipaque 350. Images obtained through the upper abdomen show grossly unremarkable appearance of visualized portions of the kidneys, spleen, adrenals, pancreas and liver. There is marked motion artifact, which obscures evaluation of the thoracic structures. No central pulmonary embolus identified. No gross thoracic aortic aneurysm seen. No gross lobar consolidation. No pleural effusion seen. No mediastinal mass or adenopathy. Tracheobronchial tree appears intact. CONCLUSION: Somewhat limited study. No evidence of major pulmonary embolic disease.
[2018-12-01 14:26] LABS: C-Reactive Protein 0.76 mg/dL (0.0-0.3)
[2018-12-01] MEDS: Normal Saline 500 ML IV (14:36)
[2018-12-01 14:56] LABS: ESR 36 MM/HR (0-30)
--- NOTE | 2018-12-01 16:13 | HPE_ITS ---
Date of service: 12/01/18 Time of Service: 16:03 Assessment and Plan (1) Chest pain: Current visit: Yes Status: Acute Patient has vague left-sided chest discomfort. Initial troponin negative. Her EKG shows some chronic ST depression V4 5 6 which actually is improved since a prior EKG of 10/18/2014. There is nothing there to suggest an acute [place]. Plan is to trend her troponins and monitor on telemetry. (2) Temporal arteritis: Current visit: Yes Status: Acute She has had temporal arteritis since 2008. On chronic steroids. Seen by rheumatology at [facility] recently. No change in her corticosteroid dose. (3) Sleep apnea: Current visit: Yes Status: Chronic Plan is to use her home BiPAP as usual. (4) Discharge planning issues: Current visit: Yes Status: Acute Admit to observation status. She is a full code. History of Present Illness Chief Complaint: Chest pain/rule out [place]/temporal artery Narrative: This is a 68-year-old woman with underlying temporal arteritis on prednisone that presents with several days of increasing fatigue and left-sided chest pressure. Her notes she had been complaining of left arm aching. She also developed a cough and increasing shortness of breath recently. Today her chest pain got worse and the family transported her to the emergency room. Initial evaluation revealed some concern for garbled speech and difficulty speaking. The patient attributes this to her being nervous and crying. In the emergency room her exam was benign, troponins negative, chest x-ray nega tive. Labs notable for d-dimer 1088. She went on to have a CT of the head, CT angiogram of head and neck, CT angiogram of the chest. EKG was unchanged from 10/18/2014. She is admitted to observation. Review of Systems Review of Systems As per HPI she has had a feeling of generalized fatigue and lack of energy recently. Constitutional Denies excessive sweating, Denies frequent falls, Reports headache(s) (Bilateral temporal headache right greater than left), Reports increased appetite and Reports weight gain Eyes Denies blurry vision and Denies change in vision ENT Denies dizziness, Reports headache(s) (Bilateral temporal headache right greater than left) and Denies throat swelling Cardiovascular Reports chest pain (Vague left-sided chest pressure), Reports chest pain at rest, Denies syncope, Denies edema, Reports dyspnea on exertion and Denies orthopnea Respiratory Denies change in phlegm color, Reports cough, Denies hemoptysis, Denies excessive phlegm production, Reports dyspnea on exertion, Denies stridor, Denies wheezing and Reports other (Has been using her inhaler more frequently) Gastrointestinal Denies diarrhea, Denies nausea and Denies vomiting Genitourinary Denies urinary frequency and Denies urinary incontinence Musculoskeletal Denies back pain, Denies deformity and Reports arthralgias (Left knee pain) Integumentary/Breasts Denies rash, Denies sores and Denies wounds Comments: She picks at her skin especially her right forearm Neurologic Denies confusion, Denies dizziness, Denies syncope, Denies frequent falls, Reports headache(s) (Bilateral temporal headache right greater than left), Denies focal weakness and Denies sensory deficit Comments: She denies any speech problems or confusion Psychiatric Reports anxiety, Denies confusion, Denies depression and Denies suicidal ideation Endocrine Denies cold intolerance and Denies excessive sweating Hematologic/Lymphatic Denies easy bleeding and Denies easy bruising Allergic/Immunologic Denies urticaria, Denies throat swelling and Denies wheezing [facility] Medical History Polymyalgia rheumatica (Chronic) Anxiety and depression (Chronic) Sleep apnea (Chronic) Benign essential hypertension (Chronic) Temporal arteritis (Acute) Hyperlipemia (Chronic) DJD (degenerative joint disease) (Chronic) Hypertension (Chronic) GERD (gastroesophageal reflux disease) (Chronic) Pulmonary nodule (Resolved) Obesity (Chronic) Osteoarthritis (Chronic) Abnormal colonoscopy (Resolved 11/11/15) Adenomatous colon polyp (Resolved) Surgical History Bilateral salpingectomy with oophorectomy (Resolved ~12/2006) Hysterectomy, Laproscopic (Resolved) Social History Smoking/Tobacco Use Status: Former Tobacco Use Alcohol Intake: current Alcohol Intake frequency: 0-2 drinks per day Alcohol type: wine Drug use: Never Do you feel safe at home: Yes Do you feel safe in your relationship?: Yes Meds Home Medications Medication Instructions Recorded Confirmed Type metoprolol succinate 25 mg PO DAILY #90 tab 12/01/12 12/01/18 History citalopram 40 mg PO DAILY #90 tab 12/03/12 12/01/18 History pantoprazole 40 mg PO DAILY #30 tab-cap 03/11/13 12/01/18 History simvastatin 20 mg PO DAILY #90 tab 03/11/13 12/01/18 History chlorthalidone 12.5 mg PO DAILY #45 tab 06/15/13 12/01/18 History meclizine 12.5 mg PO Q6H PRN #5 tab 05/19/14 12/01/18 Rx acetaminophen [Tylenol] 650 mg PO Q6H PRN tab-cap 11/23/14 12/01/18 History amlodipine 5 mg PO DAILY tab-cap 11/23/14 12/01/18 History calcium carbonate-vitamin D3 1 ea PO BID 11/23/14 12/01/18 History [Os-Tony 500 + D3] albuterol sulfate HFA 90 1 puff IH Q6H PRN 09/30/18 12/01/18 History mcg/actuation aerosol inhaler hydroxyzine HCl 25 mg tablet 25 mg PO BID PRN tab 09/30/18 12/01/18 History ipratropium-albuterol 0.5 mg-3 3 ml IH Q8H 09/30/18 11/20/18 History mg(2.5 mg base)/3 mL nebulization soln prednisone 1 mg tablet 5 mg PO DAILY tab 09/30/18 12/01/18 History trazodone 50 mg tablet See Rx Instructions .ROUTE .COMPLEX 09/30/18 12/01/18 History aspirin [Aspir-Low] 1 mg PO DAILY 12/01/18 12/01/18 History diclofenac sodium [Voltaren] 2 g TOPICAL QID 12/01/18 12/01/18 History fluticasone propion-salmeterol 1 inh INHALATION Q12H 12/01/18 12/01/18 History levalbuterol tartrate [Xopenex HFA] 2 inh INHALATION Q6H 12/01/18 12/01/18 History Allergies Allergy/AdvReac Type Severity Reaction Status Date / Time clarithromycin Allergy Severe HIVES Verified 11/20/18 10:28 Penicillins Allergy Severe HIVES Verified 11/20/18 10:28 tetracycline Allergy Severe HIVES, Verified 11/20/18 10:28 HALLUCINATIONS Bisphosphonates Allergy Unknown Verified 11/20/18 10:28 eszopiclone [Eszopiclone] Allergy Unknown Verified 11/20/18 10:28 hydrocodone [Hydrocodone] Allergy Unknown Verified 11/20/18 10:28 Macrolide Antibiotics Allergy Unknown Verified 11/20/18 10:28 morphine Allergy Unknown Verified 11/20/18 10:28 telithromycin [Telithromycin] Allergy Unknown Verified 11/20/18 10:28 raloxifene HCl [From Evista] AdvReac Intermediate BODY ACHES Verified 11/20/18 10:28 sulfamethoxazole AdvReac Intermediate HEADACHE,VO Verified 11/20/18 10:28 [From Bactrim] MITING trimethoprim [From Bactrim] AdvReac Intermediate HEADACHE,VO Verified 11/20/18 10:28 MITING alendronate sodium AdvReac Mild BODY ACHE Verified 11/20/18 10:28 codeine AdvReac Mild GI UPSET Verified 11/20/18 10:28 risedronate sodium AdvReac Mild BODY ACHES Verified 11/20/18 10:28 [From Actonel] Exam Narrative Exam Narrative: Alert and interactive, no apparent distress. Const General: cooperative, comfortable and no acute distress Orientation: alert, awake and oriented x3 HENMT Head: normal to inspection Ears: hearing grossly normal bilaterally General nose exam: external nose normal Face and sinus: face symmetric Mouth: oropharynx normal Eyes General: appearance normal, both eyes and all related structures (Eyes were slightly bloodshot, clear discharge) Neck Neck: normal visual inspection Thyroid: symmetrical Carotids: normal carotid upstroke Lymphatic: no lymphadenopathy noted Chest Chest: normal inspection of the chest Resp Effort & Inspection: normal respiratory effort Auscultation: clear to auscultation bilaterally Cardio Jugular venous pressure: no JVD Rate: regular rate Rhythm: regular rhythm Heart Sounds: S1 normal, S2 normal and no murmurs GI Inspection: normal to inspection Palpation: soft, no hepatosplenomegaly and nontender Back/Spine/Pelvis Back: no CVA tenderness Cervical Spine: normal cervical lordosis Thoracic/Lumbar Spine: thoracic and lumbar spine normal to inspection Skin General skin exam: no rashes or lesions noted (Old excoriations right forearm) Wounds: no wounds Neuro General: alert, awake, oriented x3, moves all extremities and no focal motor deficits Cranial Nerves: CN's II-XI intact bilaterally Cognition: normal cognition Speech: speech normal Extrem General: normal to inspection and no clubbing, cyanosis or edema (Right foot slightly cooler than the left) Psych Appearance: grossly normal Mental Status: mental status grossly normal Speech and Movement: speech and movement normal Mood: congruent mood Affect: normal affect Attitude: cooperative Thought Process: normal Thought Content: normal Insight: insight good Results Imaging Chest x-ray: report reviewed (Negative) CT scan - chest: report reviewed (Limited exam, negative for PE) Additional studies: CTA head and neck?negative Labs : 12/01/18 11:20 12/01/18 11:20 Laboratory Results - last 24 hr 12/01/18 12/01/18 12/01/18 11:20 11:20 11:20 WBC 7.22 RBC 4.73 Hgb 14.7 Hct 44.3 MCV 93.7 MCH 31.1 MCHC 33.2 RDW 12.9 Plt Count 189 MPV 10.6 Immature Gran % 1.0 Neutrophils % 67.8 Lymphocytes % 18.8 Monocytes % 11.2 Eosinophils % 0.8 Basophils % 0.4 Absolute Neutrophils 4.89 Absolute Lymphocytes 1.36 Absolute Monocytes 0.81 H Absolute Eosinophils 0.06 Absolute Basophils 0.03 ESR D-Dimer 1088 H Sodium 136 Potassium 3.5 Chloride 99 Carbon Dioxide 20.7 L Anion Gap 16.3 H BUN 18 Creatinine 1.01 Estimated GFR/1.73 m2 54.35 Glucose 98 Calcium 9.2 Magnesium 1.8 Total Bilirubin 0.4 AST 10 L ALT 26 Alkaline Phosphatase 84 Troponin I < 0.02 C-Reactive Protein Total Protein 7.6 Albumin 3.6 12/01/18 12/01/18 11:20 11:20 WBC RBC Hgb Hct MCV MCH MCHC RDW Plt Count MPV Immature Gran % Neutrophils % Lymphocytes % Monocytes % Eosinophils % Basophils % Absolute Neutrophils Absolute Lymphocytes Absolute Monocytes Absolute Eosinophils Absolute Basophils ESR 36 H D-Dimer Sodium Potassium Chloride Carbon Dioxide Anion Gap BUN Creatinine Estimated GFR/1.73 m2 Glucose Calcium Magnesium Total Bilirubin AST ALT Alkaline Phosphatase Troponin I C-Reactive Protein 0.76 H Total Protein Albumin Last Vital Signs Temp 36.5 C 12/01/18 15:55 Pulse 68 12/01/18 15:55 Resp 25 H 12/01/18 15:55 BP 154/81 H 12/01/18 15:55 Pulse Ox 97 12/01/18 15:55
[2018-12-01] MEDS: Enoxaparin 40 MG/0.4 ML SYR SC (16:24)
[2018-12-01 16:33] LABS: Troponin I 0.04 ng/mL (0.00-0.06)
[2018-12-01] MEDS: Potassium Chloride 20 MEQ TABCR 40 MEQ PO (17:02)
--- NOTE | 2018-12-01 17:40 | HOME_ITS ---
Home Ventilator Equipment Home care company [employer] Reason: Obstructive Sleep Apnea Make: Respironics Model: Dreamstation Mask type: Face mask Mask size: Medium Mode: BiPAP Settings: Max/Min 25/15 PS 4.0 Oxygen bleed in (lpm): 0 Condition: Good Date last checked: 12/01/18 Year of last sleep study: Compliance Daily Comments:
[2018-12-01 20:07] LABS: Troponin I 0.03 ng/mL (0.00-0.06)
[2018-12-01] MEDS: Budesonide/Formoterol 160/4.5 6 GM 60 PUFF INH IH (20:11)
[2018-12-01] MEDS: Simvastatin 20 MG TAB PO (20:11)
[2018-12-01] MEDS: Acetaminophen 325 MG TAB PO (20:12)
[2018-12-01] MEDS: Mylanta Suspension 30 ML CUP PO (20:29)
[2018-12-01] MEDS: traZODone 50 MG TAB PO (22:20)
[2018-12-02] MEDS: Normal Saline 1,000 ML 75 ML IV (01:13)
[2018-12-02 03:10] VITALS: BP 143/79; PULSE 74; RESP 18; TEMP 36.5; O2SAT 94
[2018-12-02] MEDS: Acetaminophen 325 MG TAB PO (06:39)
[2018-12-02] MEDS: Pantoprazole 40 MG TABCR PO (06:39)
[2018-12-02 07:12] LABS: Abs Immature Grans 0.04 k/cumm (0.0-0.09); Absolute Lymphocyte Count 0.65 k/cumm (1.2-3.4); Absolute Monocyte Count 0.35 k/cumm (0.11-0.7); Absolute Neutrophil Count 7.85 k/cumm (1.2-6.7); HCT 43.6 % (36.0-46.0); HGB 14.6 g/dL (12.0-15.5); Immature Grans % 0.4; Lymphocytes % 7.3; Mean Corp. HGB Concentration 33.5 g/dL (32.0-36.0); Mean Corpuscular Hemoglobin 31.4 pg (27.0-33.0); Mean Corpuscular Volume 93.8 fL (80-95); Mean Platelet Volume 10.7 fL (8.0-11.0); Monocytes % 3.9; Neutrophils % 88.4; Platelet Count 194 x1000/uL (130-400); RBC 4.65 m/cumm (4.00-5.20); RBC Distribution Width 13.3 % (11.7-14.6); White Blood Cell Count 8.89 k/cumm (4.4-10.8)
[2018-12-02 07:30] VITALS: BP 163/86; PULSE 69; RESP 18; TEMP 36.7; O2SAT 94
[2018-12-02 07:35] VITALS: PULSE 74
[2018-12-02 07:37] LABS: BUN 14 mg/dL (7-18); CO2 20.8 mmol/L (21.0-32.0); CREATININE 0.87 mg/dL (0.55-1.02); Calcium 9.3 mg/dL (8.5-10.1); Glucose 145 mg/dL (70-100)
[2018-12-02] MEDS: amLODIPine 5 MG TAB PO (07:51)
[2018-12-02] MEDS: Chlorthalidone 25 MG TAB 12.5 MG PO (07:51)
[2018-12-02] MEDS: Citalopram 20 MG TAB 40 MG PO (07:52)
[2018-12-02] MEDS: predniSONE 1 MG TAB 5 MG PO (07:52)
[2018-12-02] MEDS: Metoprolol CR 25 MG TABCR PO (07:52)
[2018-12-02] MEDS: Aspirin E.C. 81 MG TABEC PO (07:52)
[2018-12-02 08:21] LABS: Anion Gap 14.2 mmol/L (3-11); Chloride 104 mmol/L (98-107); Potassium 3.9 mmol/L (3.5-5.1); Sodium 139 mmol/L (136-145)
--- NOTE | 2018-12-02 08:49 | PDOC.CMIN ---
- If Service Date Differs Date of service: 12/02/18 Time of Service: 08:49
[2018-12-02 08:59] LABS: Troponin I < 0.02 ng/mL (0.00-0.06)
[2018-12-02] MEDS: Budesonide/Formoterol 160/4.5 6 GM 60 PUFF INH IH (11:05)
[2018-12-02 11:41] VITALS: BP 153/78; PULSE 78; RESP 18; TEMP 36.8; O2SAT 93
[2018-12-02] MEDS: Normal Saline Flush 10 ML SYR IVP (12:26)
--- NOTE | 2018-12-02 13:10 | DSE_ITS ---
Date of service: 12/02/18 Time of Service: 13:05 DS: Diagnosis Discharge Diagnosis (1) Chest pain: Status: Acute (2) Sleep apnea: Status: Chronic (3) Head pain: Status: Acute Discharge Plan Disposition Patient Disposition: HOME Condition: Stable Discharge Details Reason For Visit: CHEST PAIN Admit Date/Time: 12/01/18 14:25 Admit Provider: Aguilar Blake Attending Provider: Aguilar Blake Primary Care Provider: Anat Vicente [facility] Hospital Course Hospital Course: CC: CP, Headache HPI: 68-year-old woman with a prior history of PMR on low dose daily prednisone, as well as a prior history of Temporal Arteritis, admitted from [facility] Emergency Department on 12/01/2018 with a complaint of Chest Pain and Headache. Mrs. Nickerson has a history of PMR on daily steroids, as well as a prior diagnosis of GCA. She also has known MEHUL on BiPAP therapy, HTN, Dyslipidemia, GERD, and Obesity. The patient reports taking 'nebulizers' at home, and reports a standing order of antibiotics (Levofloxacin) at the pharmacy by her primary, indicating a potential underlying diagnosis of COPD or asthma as well. She presented to the ED with complaints of increasing fatigue, left-sided chest pressure, and left arm aching. She had developed a cough and increasing shortness of breath recently, with subsequent illness of her following this who reportedly improved on antibiotic and steroid therapy. On the day of admission the patient's chest pain got worse and the family transported her to the emergency room. Initial evaluation revealed some concern for garbled speech and difficulty speaking. The patient attributes this to her being nervous and crying. Work-up in the ED was significant for a fairly benign exam, negative cardiac biomarkers, and a negative chest x-ray. Labs were however notable for DDimer of 1088. She went on to have a CT of the head, CT angiogram of head and neck, and CT angiogram of the chest - all essentially negative. EKG was unchanged from 10/18/2014. Following admission Mrs. Nickerson ruled out with serial cardiac biomarkers. No events on telemetry were reported. She is being discharged with instructions for an outpatient nuclear stress test. Prior to discharge however, the patient noted ongoing right moravian pain and sensation of warmth around her right eye. Her exam was not consistent with a cellulitis or edema. She also reports prior pain that she has experienced similiar to this. There was no concurrent visual changes, vision loss, or other visual disturbance, and the patient denied any jaw claudication. She was also afebrile. ESR and CRP were also checked and mildly elevated, with an ESR of 36 (previously reported at 8) and CRP or 0.76 (previously reported 0.8). Discussed case with Rheumatology at [facility] - these symptoms are atypical certainly for GCA. Mrs. Nickerson also has a prior history of temporal pain leading to a biopsy in 2008, that while showing evidence of likely 'old' arteritis was negative for any acute changes. As plans had been for an uptitration in steroids, no other recommendations for care or diagnosis were made, and patient is following up with Rheumatology in 2 days. She also seems to have an acute case of bronchitis, with purulent cough and negative CXR, as well as likely underlying pulmonary disease as stated above. Plan for a quick course of antibiotics, uptitration of her steroids, and more liberal use of duonebs at home. She will follow-up with her PCP within 1-2 weeks as well. Home Meds and New Rx's Prescriptions: New levofloxacin 500 mg tablet 500 mg PO DAILY Qty: 7 RF: 0 prednisone 10 mg tablet 10 mg PO DAILY Qty: 14 RF: 0 Continued trazodone 50 mg tablet See Rx Instructions .ROUTE .COMPLEX RF: 0 ipratropium-albuterol 0.5 mg-3 mg(2.5 mg base)/3 mL solution for nebulization 3 ml IH Q8H RF: 0 albuterol sulfate [ProAir HFA] 90 mcg/actuation HFA aerosol inhaler 1 puff IH Q6H PRNRF: 0 hydroxyzine HCl 25 mg tablet 25 mg PO BID PRNRF: 0 metoprolol succinate 50 MG tablet extended release 24 hr 25 mg PO DAILY Qty: 90 RF: 3 pantoprazole 40 MG tablet,delayed release (DR/EC) 40 mg PO DAILY Qty: 30 RF: 6 simvastatin 40 MG tablet 20 mg PO DAILY Qty: 90 RF: 0 chlorthalidone 25 MG tablet 12.5 mg PO DAILY Qty: 45 RF: 3 acetaminophen [Tylenol] 325 MG tablet 650 mg PO Q6H PRN RF: 0 amlodipine 5 MG tablet 5 mg PO DAILY RF: 0 calcium carbonate-vitamin D3 [Os-Tony 500 + D3] 1 EACH tablet 1 ea PO BID RF: 0 prednisone 1 mg tablet 5 mg PO DAILY RF: 0 meclizine 12.5 MG tablet 12.5 mg PO Q6H PRN Qty: 5 RF: 0 fluticasone propion-salmeterol 250-50 mcg/dose Blister With Device 1 inh INHALATION Q12H RF: 0 aspirin [Aspir-Low] 81 mg Tablet,Delayed Release (Dr/Ec) 1 mg PO DAILY RF: 0 levalbuterol tartrate [Xopenex HFA] 45 mcg/actuation Hfa Aerosol Inhaler 2 inh INHALATION Q6H RF: 0 diclofenac sodium [Voltaren] 1 % Gel 2 g TOPICAL QID RF: 0 citalopram 20 MG tablet 40 mg PO DAILY Qty: 90 RF: 3 Discharge Instructions Additional Instructions: Please hold your Citalopram for the next 7 days while taking antibiotics (Levofloxacin). Stand Alone Forms: Nursing Discharge Form Referrals: Anat Vicente MD [Primary Care Provider] - 12/19/18 12:50 pm Activity:: No strenuous activity Equipment/Supplies:: No Equipment Needed Diet:: Heart Healthy Discharge Orders Discharge Orders: Discharge Order (Routine); Ordered 12/02/18 Ordered By: Noel Moreno DS: Data Vitals/I&O Vitals and I&O: Vital Signs Temperature 36.8 C 12/02/18 11:41 Temperature Source Tympanic 12/02/18 11:41 Pulse 78 12/02/18 11:41 Pulse Rhythm Regular 12/02/18 09:01 Pulse 73 12/01/18 15:31 Respiratory Rate 18 12/02/18 11:41 Respiratory Effort Non-Labored 12/02/18 09:01 Respiratory Depth Normal 12/02/18 09:01 Respiratory Pattern Normal 12/02/18 09:01 Blood Pressure 153/78 H 12/02/18 11:41 Blood Pressure Mean 88 12/01/18 15:31 Blood Pressure Position Sitting 12/01/18 11:16 Pulse Oximetry 93 L 12/02/18 11:41 Oxygen Delivery Method Room Air 12/02/18 11:41 Oxygen Flow Rate 0 12/02/18 11:41 Pain Level 5 12/02/18 07:30 Intake & Output 04/09/2012/02/18 12/02/18 23:59 11:59 23:59 Intake Total 800 / 800 1250 / 1250 Output Total 900 / 900 2200 / 2200 Balance -100 / -100 -950 / -950 Weight 99.79 kg 99.8 kg Intake: IV 500 / 500 Oral 300 / 300 1250 / 1250 Output: Urine 900 / 900 2200 / 2200 Other: Urine Color Yellow Yellow Urine Appearance Clear Clear Urine Odor None Voiding Methods Toilet Toilet Completed studies during hospitalization [Text1]: Exam(s) 12/01/[address]:CT head wo SYMPTOMS/DIAGNOSIS: ALTERED MENTAL STATUS, TRANSIENT NOW AT BASELINE WITH HEADACHE CRANIAL CT (WITHOUT CONTRAST): A noncontrast cranial CT was performed. The ventricular system is normal in appearance. There is no evidence of an intracranial mass lesion. There is no evidence of a subdural or epidural hematoma. No focal areas of decreased attenuation are seen. --------- Exam(s) a RAD:XR chest 2V PA & lateral SYMPTOMS/DIAGNOSIS: CHEST PAIN AP AND LATERAL CHEST: The heart is at the upper limits of normal in size. The lungs appear grossly clear. No pleural effusion seen. CONCLUSION: No evidence of acute disease. --------- Exam(s) 12/01/[address]:CT brain & neck CTA SYMPTOMS/DIAGNOSIS: HEADACHE, NECK PAIN, ALTERED MENTAL STATUS CT ANGIOGRAM NECK AND HEAD: CT angiography was performed with multi slice acquisition and multi planar and 3D reconstruction. CT angiography of the cervicocranial region was performed. Images obtained through the lung bases show no focal lesion. Superior mediastinal structures appear intact. The aortic arch is unremarkable as visualized. Common, internal and external carotid arteries appear intact bilaterally. No evidence of aneurysm, dissection or significant stenosis of common or internal carotid arteries on either side. The vertebral arteries appear intact bilaterally with right dominant pattern. The basilar artery appears intact. No evidence of aneurysm, stenosis, dissection or occlusion of intracranial major arteries including internal carotid artery, middle, anterior or posterior cerebral arteries on either side. The major branches appear intact throughout. No enhancing lesion identified in the brain. The orbital structures appear normal. No cervical mass or adenopathy. The tracheal laryngeal structures appear intact. CONCLUSION: Negative CT Angiography neck and head. --------- Exam(s) 12/01/[address]:CT chest PE CTA SYMPTOMS/DIAGNOSIS: CHEST PAIN, ELEVATED D-DIMER CT ANGIOGRAPHY, CHEST: CT angiography was performed with multi slice acquisition and multi planar and 3D reconstruction. CT angiography of the chest was performed with bolus infusion of 75 cc of Omnipaque 350. Images obtained through the upper abdomen show grossly unremarkable appearance of visualized portions of the kidneys, spleen, adrenals, pancreas and liver. There is marked motion artifact, which obscures evaluation of the thoracic structures. No central pulmonary embolus identified. No gross thoracic aortic aneurysm seen. No gross lobar consolidation. No pleural effusion seen. No mediastinal mass or adenopathy. Tracheobronchial tree appears intact. CONCLUSION: Somewhat limited study. No evidence of major pulmonary embolic disease. Labs on day of discharge: Labs from last 24 hours 12/02/18 12/02/18 12/01/18 06:15 06:15 19:40 WBC 8.89 RBC 4.65 Hgb 14.6 Hct 43.6 MCV 93.8 MCH 31.4 MCHC 33.5 RDW 13.3 Plt Count 194 MPV 10.7 Immature Gran % 0.4 Neutrophils % 88.4 Lymphocytes % 7.3 Monocytes % 3.9 Eosinophils % 0.0 Basophils % 0.0 Absolute Neutrophils 7.85 H Absolute Lymphocytes 0.65 L Absolute Monocytes 0.35 Absolute Eosinophils 0.00 Absolute Basophils 0.00 ESR Sodium 139 Potassium 3.9 Chloride 104 Carbon Dioxide 20.8 L Anion Gap 14.2 H BUN 14 Creatinine 0.87 Estimated GFR/1.73 m2 >= 60.00 Glucose 145 H Calcium 9.3 Troponin I < 0.02 0.03 C-Reactive Protein 12/01/18 12/01/18 12/01/18 16:00 11:20 11:20 WBC RBC Hgb Hct MCV MCH MCHC RDW Plt Count MPV Immature Gran % Neutrophils % Lymphocytes % Monocytes % Eosinophils % Basophils % Absolute Neutrophils Absolute Lymphocytes Absolute Monocytes Absolute Eosinophils Absolute Basophils ESR 36 H Sodium Potassium Chloride Carbon Dioxide Anion Gap BUN Creatinine Estimated GFR/1.73 m2 Glucose Calcium Troponin I 0.04 C-Reactive Protein 0.76 H [facility] Medical History Polymyalgia rheumatica (Chronic) Anxiety and depression (Chronic) Sleep apnea (Chronic) Benign essential hypertension (Chronic) Temporal arteritis (Acute) Hyperlipemia (Chronic) DJD (degenerative joint disease) (Chronic) Hypertension (Chronic) GERD (gastroesophageal reflux disease) (Chronic) Pulmonary nodule (Resolved) Obesity (Chronic) Osteoarthritis (Chronic) Abnormal colonoscopy (Resolved 11/11/15) Adenomatous colon polyp (Resolved) Surgical History Bilateral salpingectomy with oophorectomy (Resolved ~12/2006) Hysterectomy, Laproscopic (Resolved) Social History Smoking/Tobacco Use Status: Former Tobacco Use Alcohol Intake: current Alcohol Intake frequency: 0-2 drinks per day Alcohol type: wine Drug use: Never Do you feel safe at home: Yes Do you feel safe in your relationship?: Yes
--- NOTE | 2018-12-02 14:36 | CHAPLAIN ---
Tena was resting in bed. She said she was waiting to hear from the doctor and hopefully being discharged home. 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
[2018-12-02 15:06] VITALS: PULSE 75
== END 2018-12-02 15:37 | disposition home or self-care (01) ==
LOC: ER 13:23 → MS 15:52
PROVIDERS: Admitting Provider Family Medicine; Emergency Provider Student in an Organized Health Care Education/Training Program; PCP Family Medicine; Visit Provider Internal Medicine
DX: J20.9 Acute bronchitis, unspecified (principal); M31.5 Giant cell arteritis with polymyalgia rheumatica; J44.0 Chronic obstructive pulmonary disease with (acute) lower respiratory infection; F41.8 Other specified anxiety disorders; G47.33 Obstructive sleep apnea (adult) (pediatric); R53.83 Other fatigue; R47.89 Other speech disturbances; R79.1 Abnormal coagulation profile; E78.5 Hyperlipidemia, unspecified; K21.9 Gastro-esophageal reflux disease without esophagitis; I10 Essential (primary) hypertension; R51 Headache; R07.9 Chest pain, unspecified; R06.00 Dyspnea, unspecified; Z79.52 Long term (current) use of systemic steroids; Z79.2 Long term (current) use of antibiotics; Z87.891 Personal history of nicotine dependence
CPT/HCPCS: 36415; 70496; 70498; 71275; 80048; 80053; 85652; 87449; 93005; 94640; 96361; 96374; 96375; 99217; 99219; 99285; J1650; 70450; 71046; 83735; 84484; 85025; 85379; 86140; 93010; G0378; J2270; J2930; J3490

== ENCOUNTER 2018-12-29 00:19 | Outpatient (CLI) | payer MEDICARE, OTHER, SELFPAY ==
--- NOTE | 2018-12-29 08:15 | MERGEMPI_ITS ---
*[facility]* *[facility]* [address] [place] [address] Myocardial Perfusion Imaging - SPECT Regadenoson Date of study: 12/29/2018 *PATIENT PRESENTATION* Height: 162.6cm (64in) Blood Pressure: Weight: 101.4kg (223lb) BSA: 2.19m^2 Referring physician: Gomez Neves Ordering physician: Anat Vicente Impressions: Normal myocardial perfusion and contraction after pharmacological stress. Summary: 1. Myocardial perfusion imaging: No myocardial perfusion defects noted. 2. The calculated left ventricular ejection fraction after stress: 75%. LV global systolic function is normal. No left ventricular regional motion abnormality. 3. Stress ECG conclusions: The stress ECG is negative. Indication: R07.9. History: REASON FOR VISIT: PT WAS ADMITTED TO THE HOSPITAL ON 12/01/2018 FOR INCREASING FATIGUE, LEFT-SIDED CHEST PRESSURE, AND LEFT ARM ACHING. PT RULED OUT FOR ACS. HER REASON FOR TESTING IS: DYSPNEA ON EXERTION. CHEST PRESSURE. SOB AND CAD. PAST MEDICAL HISTORY: PMR. MEHUL ON BIPAP THERAPY AT HOME. HTN. DYSLIPIDEMIA. GERD. AND OBESITY. Risk factors: FORMER SMOKER 1/2-1 PACK A DAY FOR 30 YEARS. QUIT 18 YEARS AGO. Family history of coronary artery disease. Hypertension. Obesity. Dyslipidemia. ALLERGIES: NO REPORTED ALLEGIES. MEDICATIONS:ASPIRIN 81 MG DAILY. AZITHROMYCIN 250 MG DAILY. CALCIUM+D 1 TAB DAILY. CHLORTHALIDONE 12.5 MG DAILY. CHOLECALCIFEROL 2,000 UNITS DAILY. CITALOPRAM 40 MG DAILY. HYDROXYZINE 25 MG 3X DAILY PRN. IPRATROPIUM-ALBUTEROL INH Q 4 HOURS PRN. LEVALBUTEROL 1-2 PUFFS Q 4 HOURS PRN. LEVOFLOXACIN 500 MG DAILY. MECLIZINE 12.5 MG PRN. METHYLPREDNISOLONE DIRECTED. METOPROLOL SUCCINATE 25 MG DAILY. PANTOPRAZOLE 40 MG 2 X'S DAILY. PREDNISONE 5 MG DAILY. SIMVASTATIN 20 MG NIGHTLLY. TRAZODONE 50 MG PRN. Imaging Technique: Protocol: Regadenoson. Acquisition: Gated SPECT; 1 day - rest/stress. The patient was imaged in the supine position. Attenuation correction used. Isotope administration: - Rest. Tc[99m]-sestamibi. Dose: 9.9mCi. Injection time: 08:12 AM. Injection to stress time: 00:45. - Stress. Tc[99m]-sestamibi. Dose: 31.8mCi. Injection time: 09:50 AM. 1-2 min before end of exercise Baseline ECG: SINUS RHYTHM. HR [address] changes. Stress protocol: +--------+--+ + + !Stage !HR!BP (mmHg) !Comments ! +--------+--+ + + !Baseline!63!180/82 (115)! ! +--------+--+ + + !1 min !77!180/82 (115)!Inject Regadenoson.! +--------+--+ + + !3 min !69!172/74 (107)! ! +--------+--+ + + !6 min !66!150/72 (98) ! ! +--------+--+ + + * Stress results: The rate-pressure product for the peak heart rate and blood pressure was 57955hd Hg/min. Stress ECG: STRESS TEST ENDED IN 6 MINUTES & 47 SECONDS. PT HAD NO SIGNIFICANT SIDE EFFECTS FROM LEXISCAN INJECTION. NORMAL HEART RATE AND NORMAL BLOOD PRESSURE RESPONSE TO LEXISCAN INJECTION. NO ECTOPY. NO ANGINA. NO SIGNIFICANT ST SEGMENT CHANGES. The stress ECG is negative. Myocardial perfusion: Imaging information: gated. The image quality was good. Left ventricular size is normal. No myocardial perfusion defects noted. Ventricular Function (Wall Motion): The calculated left ventricular ejection fraction after stress: 75%. LV global systolic function is normal. No left ventricular regional motion abnormality. Study data: Aguilar Godoy MD supervised and was readily available during the procedure. This study was interpreted by [facility]. Study status: Routine. Consent: The risks, benefits, and alternatives to the procedure were explained to the patient and informed consent was obtained. Procedure: Initial setup. A baseline ECG was recorded. Surface ECG leads and manual cuff blood pressure measurements were monitored. Heart sounds: Normal. Lung sounds: Normal. Regadenoson stress test. Stress testing was performed, with regadenoson by intravenous bolus, for a total dose of 0.4mgover 10.00sec, followed by a 5ml saline flush. The infusion was terminated due to per protocol. Study completion: All catheters inserted during the procedure were removed. The patient tolerated the procedure well and was discharged from the lab. Discharge: The patient left the laboratory in stable condition. Birthdate: Patient birthdate: 1950. Sex: Gender: female. Study date: Study date: 12/29/2018. Study time: 00:01 AM. Signature Documentation: - The imaging portion of this study was interpreted by Nuclear Delivery Route Driver Gomez Neves MD. - The imaging portion of this study was interpreted by Nuclear Radiologist Pb Zelaya MD. - The Stress ECG portion of this study was interpreted by Gomez Neves MD. Electronically signed by Gomez Neves 12/29/2018 13:16
[2018-12-29] MEDS: Regadenoson 0.4 MG/5 ML SYR IVP (09:30)
== END 2018-12-29 00:39 ==
PROVIDERS: PCP Family Medicine; Visit Provider Family Medicine
DX: R07.9 Chest pain, unspecified (principal); R53.83 Other fatigue; R06.02 Shortness of breath; I25.10 Atherosclerotic heart disease of native coronary artery without angina pectoris; I10 Essential (primary) hypertension; E78.5 Hyperlipidemia, unspecified; K21.9 Gastro-esophageal reflux disease without esophagitis; Z87.891 Personal history of nicotine dependence; Z82.49 Family history of ischemic heart disease and other diseases of the circulatory system
CPT/HCPCS: 78452; 93016; 93018; 93017; J2785

== ENCOUNTER 2019-03-26 15:25 | Outpatient (REF) | payer MEDICARE, OTHER, SELFPAY ==
[2019-03-26 19:51] LABS: ALT 32 U/L (12-78); AST 14 U/L (15-37); Albumin 3.8 g/dL (3.4-5.0); Alkaline Phosphatase 72 U/L (46-116); Anion Gap 14.3 mmol/L (3-11); BUN 21 mg/dL (7-18); Bilirubin, Total 0.4 mg/dL (0.2-1.0); CO2 24.7 mmol/L (21.0-32.0); CREATININE 0.82 mg/dL (0.55-1.02); Calcium 9.5 mg/dL (8.5-10.1); Chloride 101 mmol/L (98-107); Glucose 102 mg/dL (70-100); Potassium 3.8 mmol/L (3.5-5.1); Sodium 140 mmol/L (136-145); Total Protein 7.2 g/dL (6.4-8.2)
== END 2019-03-26 15:45 ==
LOC: NCHCN 15:25
PROVIDERS: PCP Family Medicine; Visit Provider Family Medicine
DX: I10 Essential (primary) hypertension (principal); Z13.1 Encounter for screening for diabetes mellitus
CPT/HCPCS: 80053; 83036

== ENCOUNTER → 2019-05-01 10:07 | Outpatient (BNVA) | payer MEDICARE, OTHER, SELFPAY | PROVIDERS: PCP Family Medicine; Referring Provider Family Medicine; Visit Provider Physical Therapy Assistant | DX: Z12.11 Encounter for screening for malignant neoplasm of colon (principal); Z86.010 Personal history of colon polyps; I10 Essential (primary) hypertension ==

== ENCOUNTER 2019-05-12 08:19 | Day surgery (SDC) | payer MEDICARE, OTHER, SELFPAY ==
[2019-05-12 08:43] VITALS: BP 128/71; PULSE 66; RESP 18; TEMP 36.1; O2SAT 96
[2019-05-12 09:14] VITALS: BP 128/71; PULSE 66; RESP 18; TEMP 36.1; O2SAT 96
[2019-05-12] MEDS: Lactated Ringers 1,000 ML 80 ML IV (09:24)
--- NOTE | 2019-05-12 10:38 | BOWEL_PTH ---
PATIENT: Tena Nickerson LOC: [facility] U#:[id number] AGE/SX: 69/F ROOM: RE05/12/[address]: Mariela Arizmendi MD : 1950 BED: DIS: 05/12/2019 SPEC #: [id number] RECD: 05/12/19 12:40 STATUS: ALEN REQ #: [id number] JOSHUA: 05/12/19 10:[address]: Mariela Arizmendi DEPT: Surgical Specimen RECD BY: Veena Gresham ENTERED: 05/12/19 12:42 SP TYPE: Bowel OTHR DR: Anat Vicente Tissues: 1 - BIOPSY BOWEL 2 - BIOPSY BOWEL Procedures: GROSS AND MICRO LEVEL 4 Comments: [id number]
--- NOTE | 2019-05-12 10:46 | PDOC.DSDIS_ITS ---
Discharge Plan Disposition Patient Disposition: HOME Condition: Good Discharge Details Reason For Visit: Colonoscopy Attending Provider: Mariela Arizmendi Primary Care Provider: Anat Vicente Home Meds and New Rx's Prescriptions: Continued trazodone 50 mg tablet See Rx Instructions .ROUTE .COMPLEX PRNRF: 0 ipratropium-albuterol 0.5 mg-3 mg(2.5 mg base)/3 mL solution for nebulization 3 ml IH Q8H PRNRF: 0 albuterol sulfate [ProAir HFA] 90 mcg/actuation HFA aerosol inhaler 1 puff IH Q6H PRNRF: 0 hydroxyzine HCl 25 mg tablet 25 mg PO BID PRNRF: 0 (DME) Oxygen Tank See Rx Instructions .ROUTE .MEDSUPPLY Qty: 1 RF: 0 metoprolol succinate 50 MG tablet extended release 24 hr 25 mg PO DAILY Qty: 90 RF: 3 pantoprazole 40 MG tablet,delayed release (DR/EC) 40 mg PO DAILY Qty: 30 RF: 6 simvastatin 40 MG tablet 20 mg PO DAILY Qty: 90 RF: 0 chlorthalidone 25 MG tablet 12.5 mg PO DAILY Qty: 45 RF: 3 acetaminophen [Tylenol] 325 MG tablet 650 mg PO Q6H PRN PRNRF: 0 amlodipine 5 MG tablet 5 mg PO DAILY RF: 0 calcium carbonate-vitamin D3 [Os-Tony 500 + D3] 1 EACH tablet 1 ea PO DAILY RF: 0 prednisone 1 mg tablet 5 mg PO DAILY RF: 0 meclizine 12.5 MG tablet 12.5 mg PO Q6H PRN PRNQty: 5 RF: 0 vit D3-folic [id number] 2,000-800-0.32 unit-mcg-mg Tablet 1 tab PO RF: 0 fluticasone propion-salmeterol 250-50 mcg/dose Blister With Device 1 inh INHALATION Q12H RF: 0 aspirin [Aspir-Low] 81 mg Tablet,Delayed Release (Dr/Ec) 1 mg PO DAILY RF: 0 levalbuterol tartrate [Xopenex HFA] 45 mcg/actuation Hfa Aerosol Inhaler 2 inh INHALATION Q6H PRNRF: 0 diclofenac sodium [Voltaren] 1 % Gel 2 g TOPICAL QID PRNRF: 0 levofloxacin 500 mg tablet 500 mg PO DAILY Qty: 7 RF: 0 prednisone 10 mg tablet 10 mg PO DAILY Qty: 14 RF: 0 citalopram 20 MG tablet 40 mg PO DAILY Qty: 90 RF: 3 Discontinued polyethylene glycol 3350 17 gram/dose powder 238 g PO ONCE Qty: 238 RF: 0 bisacodyl [Dulcolax (bisacodyl)] 5 mg tablet,delayed release (DR/EC) 5 mg PO ONCE Qty: 4 RF: 0 Discharge Instructions Additional Instructions: Findings: Three small polyps were removed. My office will contact you with biopsy results. Follow up: Plan for a colonoscopy in 5 years Please call if you develop: fevers >101.5 Nausea or Vomiting Abdominal pain that is not transient DAY SURGERY UNIT POST COLONOSCOPY INSTRUCTIONS 1. Because there will be medication in your system for the next 24 hours, you may feel a little sleepy. Your coordination will be affected. Therefore: a. Do not drive or operate dangerous equipment for 24 hours. b. Do not drink alcohol beverages for 24 hours (not even beer). c. Plan to go home and rest for the day. 2. Generally there are no restrictions on your activity after a day or so has gone by, but you may feel a bit fatigued for a few days. 3 After you arrive home you may have a light meal and return to a normal diet as you can tolerate it without feeling sick to your stomach. 4. After surgery, you may feel pain or discomfort. This should be only tr ansient, but if it persists please contact your doctor. 5. If there are any questions regarding the findings of your procedure, please feel free to contact your doctor. 6. If you are unable to contact your doctor with a problem, contact the hospital at [phone]. 7. Continue all your regular medications unless directed otherwise. I understand the above instructions and have no questions. Signature of Patient or Responsible Adult Escort Date/Time Name of Responsible Adult Escort Signature of Nurse Date/Time Activity:: Activity as Tolerated Diet:: As Tolerated Discharge Orders Discharge Orders: Discharge Order (Routine); Ordered 05/12/19 Ordered By: Mariela Arizmendi DS: Diagnosis Discharge Diagnosis (1) Colon polyps: Status: Acute (2) Diverticulosis: Status: Acute
[2019-05-12 11:19] VITALS: BP 139/53; PULSE 57; RESP 18; TEMP 36.2; O2SAT 99
--- NOTE | 2019-05-12 14:44 | COLE_ITS ---
DATE OF PROCEDURE: May 12, 2019 PREOPERATIVE DIAGNOSIS: History of colon polyp. POSTOPERATIVE DIAGNOSIS: 1. Colon polyps. 2. Diverticulosis. PROCEDURE: Colonoscopy with cold forceps polypectomy. SURGEON: Mariela Arizmendi M.D. ANESTHESIA: General. INDICATIONS: This is a 69-year-old woman whose prior colonoscopy in 2016 showed an adenomatous polyp . She presents for routine follow-up. She is asymptomatic and has no family history of colon cancer . PROCEDURE: She was placed in the left West position. Propofol was titrated to sedation. Digital re ctal examination revealed no abnormalities. The scope was advanced to the cecum without difficulty. The ileocecal valve and appendiceal orifice were clearly identified. Her prep was excellent. The s cope was slowly withdrawn with two diminutive polyps identified in the ascending colon. These were r emoved with cold forceps completely and sent to Pathology in the same specimen container. The transv erse colon was normal. The descending colon was normal. The sigmoid region showed moderate divertic ulosis. There was another small polyp that was removed completely with the cold forceps in the sigmo id region and sent to Pathology. The rectum was normal, including on retroflex view. She tolerated the procedure well and was stable to recovery. It is anticipated she will need a follow-up colonoscopy again in 5 years, depending on polyp patholog y.
== END 2019-05-12 11:43 | disposition home or self-care (01) ==
PROVIDERS: PCP Family Medicine; Visit Provider Surgery
PROC: 0DJD8ZZ Inspection of Lower Intestinal Tract, Via Natural or Artificial Opening Endoscopic (ICD-10-PCS; CPT 45378; principal; 2019-05-12 10:45)
DX: Z12.11 Encounter for screening for malignant neoplasm of colon (principal); Z86.010 Personal history of colon polyps; D12.2 Benign neoplasm of ascending colon; K63.5 Polyp of colon; K57.30 Diverticulosis of large intestine without perforation or abscess without bleeding; G47.33 Obstructive sleep apnea (adult) (pediatric); K21.9 Gastro-esophageal reflux disease without esophagitis; I10 Essential (primary) hypertension; M35.3 Polymyalgia rheumatica
CPT/HCPCS: 45380; 88305

== ENCOUNTER 2019-09-16 07:06 | Emergency (ER) | payer MEDICARE, OTHER, SELFPAY ==
[2019-09-16] VITALS (14 sets, daily range): BP systolic 131–145; BP diastolic 63–81; PULSE 55–86; RESP 10–17; TEMP 36.6; O2SAT 95–98
--- NOTE | 2019-09-16 07:23 | W.ED.GENAD ---
Discharge Plan Disposition Patient Disposition: HOME Condition: Improving Discharge Details Chief Complaint: Chest/Rib Clinical Impression: Chest pain, musculoskeletal Primary Care Provider: Anat Vicente ED Provider: Oj Benitez Home Meds and New Rx's Prescriptions: New cyclobenzaprine 10 mg tablet 10 mg PO TID PRN (Reason: muscle spasm) Qty: 10 RF: 0 No Action trazodone 50 mg tablet See Rx Instructions .ROUTE .COMPLEX PRNRF: 0 ipratropium-albuterol 0.5 mg-3 mg(2.5 mg base)/3 mL solution for nebulization 3 ml IH Q8H PRNRF: 0 albuterol sulfate [ProAir HFA] 90 mcg/actuation HFA aerosol inhaler 1 puff IH Q6H PRNRF: 0 hydroxyzine HCl 25 mg tablet 25 mg PO BID PRNRF: 0 (DME) Oxygen Tank See Rx Instructions .ROUTE .MEDSUPPLY Qty: 1 RF: 0 metoprolol succinate 50 MG tablet extended release 24 hr 25 mg PO DAILY Qty: 90 RF: 3 pantoprazole 40 MG tablet,delayed release (DR/EC) 40 mg PO DAILY Qty: 30 RF: 6 simvastatin 40 MG tablet 20 mg PO DAILY Qty: 90 RF: 0 chlorthalidone 25 MG tablet 12.5 mg PO DAILY Qty: 45 RF: 3 acetaminophen [Tylenol] 325 MG tablet 650 mg PO Q6H PRN PRNRF: 0 amlodipine 5 MG tablet 5 mg PO DAILY RF: 0 calcium carbonate-vitamin D3 [Os-Tony 500 + D3] 1 EACH tablet 1 ea PO DAILY RF: 0 prednisone 1 mg tablet 5 mg PO DAILY RF: 0 meclizine 12.5 MG tablet 12.5 mg PO Q6H PRN PRNQty: 5 RF: 0 vit D3-folic [id number]-B12 2,000-800-0.32 unit-mcg-mg Tablet 1 tab PO RF: 0 fluticasone propion-salmeterol 250-50 mcg/dose Blister With Device 1 inh INHALATION Q12H RF: 0 aspirin [Aspir-Low] 81 mg Tablet,Delayed Release (Dr/Ec) 1 mg PO DAILY RF: 0 levalbuterol tartrate [Xopenex HFA] 45 mcg/actuation Hfa Aerosol Inhaler 2 inh INHALATION Q6H PRNRF: 0 diclofenac sodium [Voltaren] 1 % Gel 2 g TOPICAL QID PRNRF: 0 levofloxacin 500 mg tablet 500 mg PO DAILY Qty: 7 RF: 0 prednisone 10 mg tablet 10 mg PO DAILY Qty: 14 RF: 0 citalopram 20 MG tablet 40 mg PO DAILY Qty: 90 RF: 3 Discharge Instructions Instructions: Chest Pain (ED) Additional Instructions: 1. Drink plenty of fluids. 2. Continue all medications as prescribed. 3. Acetaminophen 1000mg every 4 hours (up to 5 time a day) and/or ibuprofen 600mg every 6 hours as needed for fever or pain. 4. Flexeril 10 mg every 6 hours as needed. Return to the Emergency Department (ED) if your condition worsens, does not improve as expected, or for ANY other concerns. Specifically, return if you have new or uncontrolled pain, worsening fever, difficulty breathing, vomiting, or are unable to drink fluids. Medical Decision Making 69-year-old woman with a past medical history which has included orthopedic/musculoskeletal pain presents with 3 days of worsening pain localized to her left back and chest wall. Symptoms worsened over time and worse with inspiration, positional change, direct palpation. Exam significant for paraspinal soft tissue tenderness which reproduced subjective pain. Bedside echo negative. EKG, troponin, and clinical assessment suggestive of a musculoskeletal etiology. Clinical improved after receiving oral analgesics and and MENDEZ block. Remained comfortable in the ED with gradual improving symptoms. Discharged home with a plan for OTC analgesia, muscle relaxers as needed, and outpatient follow-up. Given usual and customary return instructions prior to discharge. Medical Records Medical records reviewed: Yes I reviewed the patient's medical records. Imaging Data Radiologic Study: Attestation: I personally reviewed and interpreted this imaging study as follows: Imaging: Ultrasound (Limited bedside cardiac) My impression: No pericardial effusion, normal LVEF, no RVS. Inter but independently contemporaneously by myself. Images saved. Lab Data Lab results reviewed: Yes I reviewed the patient's lab results. Lab results narrative: Troponin normal HPI 69-year-old woman with a past medical history which includes anxiety/depression, hypertension, BPV, GERD, DJD. She reports remotely having episodes of muscle spasm. Presents with accelerating, severe left posterior lateral chest wall pain and subjective spasm. Over the past 3 days, she has had worsening discomfort with severe acceleration of her pain yesterday evening and this morning. She has taken oral analgesics with minimal efficacy. She denies dyspnea, noting that her inspiration excursion is limited by pain. She otherwise denies any chest pain, palpitations, diaphoresis, fever/chills, abdominal pain, change in bowel habits, melena. She has had no presyncope, headache, or focal extremity weakness. General Date/Time Provider Initiated Documentation: 09/16/19 07:23. Related Data Home Medications Medication Instructions Recorded Confirmed metoprolol succinate 25 mg PO DAILY #90 tab 12/01/12 09/16/19 pantoprazole 40 mg PO DAILY #30 tab-cap 03/11/13 09/16/19 simvastatin 20 mg PO DAILY #90 tab 03/11/13 09/16/19 chlorthalidone 12.5 mg PO DAILY #45 tab 06/15/13 09/16/19 acetaminophen [Tylenol] 650 mg PO Q6H PRN PRN tab-cap 11/23/14 09/16/19 amlodipine 5 mg PO DAILY tab-cap 11/23/14 09/16/19 calcium carbonate-vitamin D3 1 ea PO DAILY 11/23/14 09/16/19 [Os-Tony 500 + D3] albuterol sulfate 90 mcg/actuation 1 puff IH Q6H PRN 09/30/18 09/16/19 aerosol inhaler hydroxyzine HCl 25 mg tablet 25 mg PO BID PRN tab 09/30/18 09/16/19 ipratropium-albuterol 0.5 mg-3 3 ml IH Q8H PRN 09/30/18 09/16/19 mg(2.5 mg base)/3 mL nebulization soln prednisone 1 mg tablet 5 mg PO DAILY tab 09/30/18 09/16/19 trazodone 50 mg tablet See Rx Instructions .ROUTE 09/30/18 09/16/19 .COMPLEX PRN aspirin [Aspir-Low] 1 mg PO DAILY 12/01/18 09/16/19 diclofenac sodium [Voltaren] 2 g TOPICAL QID PRN 12/01/18 09/16/19 fluticasone propion-salmeterol 1 inh INHALATION Q12H 12/01/18 09/16/19 levalbuterol tartrate [Xopenex HFA] 2 inh INHALATION Q6H PRN 12/01/18 09/16/19 citalopram 40 mg PO DAILY #90 tab 12/02/18 09/16/19 levofloxacin 500 mg PO DAILY #7 tab 12/02/18 09/16/19 prednisone 10 mg PO DAILY #14 tab 12/02/18 09/16/19 Oxygen #1 each 05/01/19 05/01/19 meclizine 12.5 mg PO Q6H PRN PRN #5 tab 05/07/19 09/16/19 vit D3-folic [id number] 1 tab PO 05/12/19 cyclobenzaprine 10 mg PO TID PRN #10 tab NS 09/16/19 Previous Rx's Medication Instructions Recorded citalopram 40 mg PO DAILY #90 tab 12/02/18 levofloxacin 500 mg PO DAILY #7 tab 12/02/18 prednisone 10 mg PO DAILY #14 tab 12/02/18 meclizine 12.5 mg PO Q6H PRN PRN #5 tab 05/07/19 cyclobenzaprine 10 mg PO TID PRN #10 tab NS 09/16/19 Allergies Allergy/AdvReac Type Severity Reaction Status Date / Time clarithromycin Allergy Severe HIVES Verified 09/16/19 07:24 Penicillins Allergy Severe HIVES Verified 09/16/19 07:24 tetracycline Allergy Severe HIVES, Verified 09/16/19 07:24 HALLUCINATIONS eszopiclone [Eszopiclone] Allergy Unknown pt unsure Verified 09/16/19 07:35 of reaction telithromycin [Telithromycin] Allergy Unknown pt unsure Verified 09/16/19 07:35 raloxifene HCl [From Evista] AdvReac Intermediate BODY ACHES Verified 09/16/19 07:24 sulfamethoxazole AdvReac Intermediate HEADACHE,VO Verified 09/16/19 07:24 [From Bactrim] MITING trimethoprim [From Bactrim] AdvReac Intermediate HEADACHE,VO Verified 09/16/19 07:24 MITING alendronate sodium AdvReac Mild BODY ACHE Verified 09/16/19 07:24 codeine AdvReac Mild GI UPSET Verified 09/16/19 07:24 risedronate sodium AdvReac Mild BODY ACHES Verified 09/16/19 07:24 [From Actonel] Bisphosphonates AdvReac Unknown achy joints Verified 09/16/19 07:35 hydrocodone [Hydrocodone] AdvReac Unknown vomitting Verified 09/16/19 07:35 Macrolide Antibiotics AdvReac Unknown vomitting Verified 09/16/19 07:35 and hallucinations morphine AdvReac Unknown pt. felt Verified 09/16/19 07:35 like she was floating, states she thinks she got to General TENA: 2 Review of Systems All systems reviewed & are unremarkable except as noted in HPI and below PFSH Medical History Abnormal colonoscopy (Resolved 11/11/15) 11/11/15 Dr Brizuela, sessile serrated adenoma, repeat 3 years. mg Adenomatous colon polyp (Resolved) 11/11/15 Dr Brizuela, sessile serrated adenoma, repeat 3 years. mg Allergic rhinitis, unspecified (Acute 12/10/12) Anxiety and depression (Chronic) Benign essential hypertension (Chronic) Benign paroxysmal vertigo (Acute 10/12/11) Chest pain (Acute) Diverticulosis (Acute) 05/12/[address] Mariela Arizmendi, [facility] DJD (degenerative joint disease) (Chronic) Esophageal reflux (Acute 12/10/12) EGD 05/25/13 KD: mild antritis and distal esophagitis; int metaplasia, no dysplasia GERD (gastroesophageal reflux disease) (Chronic) Head pain (Acute) Hyperlipemia (Chronic) Hypertension (Chronic) Leukoplakia of oral cavity (Acute) Lumbago (Acute 12/10/12) Midline cystocele (Acute 12/10/12) pt. unsure Neoplasm of unspecified behavior of bone, soft tissue, and skin (Acute) Obesity (Chronic) Obstructive sleep apnea (adult) (pediatric) (Acute 01/19/13) severe, Dr. Greer, on auto Bi-Level bipap Osteoarthritis (Chronic) Polymyalgia rheumatica (Chronic) Pulmonary nodule (Resolved) Restless legs (Acute 01/19/13) Dr. Greer Sensorineural hearing loss, bilateral (Acute 06/03/14) Serrated polyp of colon (Acute 11/11/15) Sleep apnea (Chronic) Temporal arteritis (Acute) Tinnitus (Acute 06/03/14) Vaginal discharge (Acute 11/23/14) Vertigo (Acute 06/03/14) Surgical History Bilateral salpingectomy with oophorectomy (Resolved ~12/2006) History of cardiac cath (Chronic) Hx of colonoscopy (Chronic) Hysterectomy, Laproscopic (Resolved) Family History Sister Cancer Father Heart disease Mother Heart disease Brother Heart disease Social History Smoking/Tobacco Use Status: Former Tobacco Use Quit Date: 09/02/99 Alcohol Intake: never Drug use: Never Substance use type: does not use Details: alcohol: t-30, pt states she stopped drinking Do you feel safe at home: Yes Do you feel safe in your relationship?: Yes Exam Narrative Exam Narrative: Nursing note and vital signs have been reviewed and noted. GENERAL: alert, active, no acute distress, well -hydrated, well-nourished HEENT: atraumatic/normocephalic, PERRLA, EOMI, conjunctiva clear, external ears/canals normal, nasal mucosa normal NECK: supple, full range of motion, no mass, normal lymphadenopathy, no thyromegaly CARDIOVASCULAR: RRR, no murmurs, nl pulses, no edema PULMONARY: nl effort, no audible wheezing or stridor, nl breath sounds with no focal deficit. no chest wall tenderness ABDOMEN: soft, non-tender, non-distended, no mass, no organomegaly BACK: Left paraspinal tenderness T5-T7 which reproduces subjective pain. There is tenderness extending laterally along the costal wall which reproduced subjective pain. EXTREMITY: normal muscle tone, all joints with FROM, no deformity or tenderness SKIN: no exanthem appreciated NEURO: gross motor exam normal, normal stance and gait PSYCH: alert and oriented, Procedures Nerve Block Nerve Block 1: Time out performed: Yes Local Anesthetic: other anesthetic (150 mg of 0.5% ropivacaine (30 mL's) diluted with 10 cc of normal saline and 2 mL's (8 mg) of dexamethasone.) Amount of anesthesia used (mL): 42 Side: left Nerve Blocks: other (Erector spinae plane block (exp)) Procedure Successful: Yes Patient Tolerated Procedure: well Complications: none
[2019-09-16] MEDS: Normal Saline Flush 10 ML SYR IVP (07:30)
[2019-09-16] MEDS: Dexamethasone 10 MG/ML VIAL (08:00)
[2019-09-16] MEDS: Lidocaine 1% Multi-Dose 50 ML VIAL IJ (08:00)
[2019-09-16] MEDS: Cyclobenzaprine 10 MG TAB PO (09:07)
[2019-09-16 10:01] LABS: Troponin I < 0.05 ng/Ml (<0.06)
== END 2019-09-16 10:20 | disposition home or self-care (01) ==
PROVIDERS: Emergency Provider Emergency Medicine; PCP Family Medicine
DX: R07.81 Pleurodynia (principal); I10 Essential (primary) hypertension
CPT/HCPCS: 36415; 64450; 93005; 96374; 99284; 84484; 93010; 99285; J1100

== ENCOUNTER 2019-09-21 07:42 | Outpatient (CLI) | payer MEDICARE, OTHER, SELFPAY | END 2019-09-21 08:02 | PROVIDERS: PCP Family Medicine; Visit Provider Family Medicine | DX: F19.20 Other psychoactive substance dependence, uncomplicated (principal) | CPT/HCPCS: 36415; 82533 ==

== ENCOUNTER 2020-02-24 08:38 | Outpatient (REF) | payer MEDICARE, OTHER, SELFPAY ==
[2020-02-24 16:26] LABS: Anion Gap 11.2 mmol/L (3-11); BUN 22 mg/dL (7-18); CO2 24.8 mmol/L (21.0-32.0); CREATININE 1.06 mg/dL (0.55-1.02); Calcium 9.5 mg/dL (8.5-10.1); Calculated LDL 114 mg/dL (<100); Chloride 103 mmol/L (98-107); Cholesterol 205 mg/dL (<200); Estimated GFR 51.25 (mL/min/1.73m2); Glucose 88 mg/dL (74-106); HDL Cholesterol 59 mg/dL (40-60); Potassium 3.8 mmol/L (3.5-5.1); Sodium 139 mmol/L (136-145); Triglyceride 160 mg/dL (<150)
[2020-02-24 16:27] LABS: Hemoglobin A1C 5.7 % (3.8-5.6)
== END 2020-02-24 08:58 ==
LOC: NCHCN 08:38
PROVIDERS: PCP Family Medicine; Visit Provider Family Medicine
DX: I10 Essential (primary) hypertension (principal); R73.03 Prediabetes; E78.5 Hyperlipidemia, unspecified
CPT/HCPCS: 80048; 80061; 83036

== ENCOUNTER 2020-03-28 10:13 | Outpatient (REF) | payer MEDICARE, OTHER, SELFPAY ==
[2020-03-28 19:23] LABS: TSH (W/Ref FT4) 1.15 uIU/mL (0.36-3.74)
[2020-03-28 20:05] LABS: ESR 23 mm/hr (0-30)
== END 2020-03-28 10:33 ==
LOC: NCHCN 10:13
PROVIDERS: PCP Family Medicine; Visit Provider Family Medicine
DX: R63.4 Abnormal weight loss (principal); R51 Headache; M35.3 Polymyalgia rheumatica
CPT/HCPCS: 85652; 84443

== ENCOUNTER 2020-04-08 08:59 | Inpatient (IN) | payer MEDICARE, SELFPAY ==
[2020-04-08] VITALS (7 sets, daily range): BP systolic 125–188; BP diastolic 69–84; PULSE 71–103; RESP 14–20; TEMP 36.1–36.9; O2SAT 93–99
--- NOTE | 2020-04-08 | DI.US_ITS ---
EXAM: US EXTREMITY VENOUS BI CLINICAL HISTORY: PE. TECHNIQUE: Ultrasound performed using standard protocol. COMPARISON: US ABDOMEN ULTRASOUND (P) {[id number]} from 11/23/2014 FINDINGS: Duplex venous ultrasound was performed according to the usual protocol. The deep veins are freely com pressible throughout and there is normal flow augmentation with manual calf compression. 2D and Doppl er evaluation are unremarkable. IMPRESSION: No evidence of deep venous thrombosis of the right or left lower extremity. DATA REPOSITORY:
--- NOTE | 2020-04-08 09:00 | RT.EKG_ITS ---
APPROVED REPORT Exam: Resting ECG Patient Location: E HR:88 bpm ECG Measurements Heart Rate 88 AXIS AK 193 P 69 QRSd 93 QRS 34 QT 341 T 11 QTc [address] depression noted in V4-6 which appears new compared to EKG 09/21.
--- NOTE | 2020-04-08 09:20 | DI.CT_ITS ---
EXAM: CT CHEST PE ABD PELVIS W CLINICAL HISTORY: pleuritic chest pain, LUQ abd pain TECHNIQUE: COMPARISON: CT CT CHEST PE CTA from 12/01/2018 FINDINGS: CT angiography of the chest was performed followed by abdominal and pelvic CT. Thoracic aorta is of normal diameter and there is no evidence of dissection. There is predominantly left-sided pulmonary embolism with a saddle embolus of the distal left main pulmonary artery extending into lobar segmenta l and subsegmental vessels left lower and upper lobes. Emboli are also noted right lower segmental a nd subsegmental vessels. There is no evidence of right heart strain. Cardiac size is within normal limits Small left pleural effusion noted. Peripheral areas patchy consolidation and/or atelectasis noted, p ossibility of small peripheral areas of pulmonary infarction not excluded at the left lung base. Oth erwise lungs are predominantly clear. Tracheobronchial tree appears intact. No mediastinal or hilar adenopathy. Abdominal aorta is of normal diameter. The aortic wall is heavily calcified. No significant abnorma lity of major visceral branches including celiac trunk, renal arteries, SMA, MEE is questionably visu alized. There is near occlusive stenosis of proximal right common iliac artery. There is near occlusive sten osis distal right common iliac artery at the bifurcation. The internal and external iliac arteries a nd femoral artery on the right are patent. Less than 50 percent luminal diameter stenosis of left co mmon iliac artery noted. There is mild hepatic steatosis. Spleen is unremarkable in appearance. Gallbladder and bile ducts a re CT normal. Pancreas appears normal. Adrenals and kidneys are unremarkable except for incidental tiny right and left renal cysts. No evidence of urinary tract obstruction or calcification. Unrema rkable appearance of the adrenal glands. No significant abdominal wall hernia seen. No significant abdominal or pelvic adenopathy. Urinary bladder appears thick walled, nonspecific finding which may indicate cystitis or chronic blad benny outlet obstruction. Bladder is nondistended at this time. Appendix is normal. No evidence of diverticulitis or bowel obstruction. IMPRESSION: Extensive pulmonary embolic disease, most marked involving left lower lobe vessels, possible minimal peripheral areas pulmonary infarction seen at the left lung base along with areas of presumed atelect asis. No evidence of right heart strain. 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 Please see above discussion.
--- NOTE | 2020-04-08 09:28 | ED.GENADUL_ITS ---
Discharge Plan Disposition Patient Disposition: [facility] INPATIENT Condition: Stable Discharge Details Chief Complaint: Chest/Rib Clinical Impression: Pulmonary embolism Primary Care Provider: Anat Vicente ED Provider: Luanne Encarnacion Home Meds and New Rx's Prescriptions: No Action trazodone 50 mg tablet See Rx Instructions .ROUTE .COMPLEX PRNRF: 0 ipratropium-albuterol 0.5 mg-3 mg(2.5 mg base)/3 mL solution for nebulization 3 ml IH Q8H PRNRF: 0 (DME) Oxygen Tank See Rx Instructions .ROUTE .MEDSUPPLY Qty: 1 RF: 0 metoprolol succinate 50 MG tablet extended release 24 hr 25 mg PO DAILY Qty: 90 RF: 3 simvastatin 40 MG tablet 20 mg PO DAILY Qty: 90 RF: 0 acetaminophen [Tylenol] 325 MG tablet 650 mg PO Q6H PRN PRNRF: 0 calcium carbonate-vitamin D3 [Os-Tony 500 + D3] 1 EACH tablet 1 ea PO DAILY RF: 0 prednisone 1 mg tablet 5 mg PO DAILY RF: 0 meclizine 12.5 MG tablet 12.5 mg PO Q6H PRN PRNQty: 5 RF: 0 vit D3-folic [id number] 2,000-800-0.32 unit-mcg-mg Tablet 1 tab PO RF: 0 fluticasone propion-salmeterol 250-50 mcg/dose Blister With Device 1 inh INHALATION Q12H RF: 0 aspirin [Aspir-Low] 81 mg Tablet,Delayed Release (Dr/Ec) 1 mg PO DAILY RF: 0 levalbuterol tartrate [Xopenex HFA] 45 mcg/actuation Hfa Aerosol Inhaler 2 inh INHALATION Q6H PRNRF: 0 diclofenac sodium [Voltaren] 1 % Gel 2 g TOPICAL QID PRNRF: 0 levofloxacin 500 mg tablet 500 mg PO DAILY Qty: 7 RF: 0 prednisone 10 mg tablet 10 mg PO DAILY Qty: 14 RF: 0 cyclobenzaprine 10 mg tablet 10 mg PO TID PRN (Reason: muscle spasm) Qty: 10 RF: 0 citalopram 40 mg tablet 40 mg PO DAILY RF: 0 chlorthalidone 25 mg tablet 25 mg PO DAILY RF: 0 amlodipine 5 mg tablet 5 mg PO DAILY RF: 0 pantoprazole 40 mg tablet,delayed release (DR/EC) 40 mg PO DAILY RF: 0 hydroxyzine HCl 25 mg tablet 25 mg PO DAILY RF: 0 albuterol sulfate 90 mcg/actuation HFA aerosol inhaler 2 puff INHALATION PRN PRNRF: 0 Medical Decision Making 0915 -- 70-year-old female with a history of hypertension, vertigo, GERD, hyperlipidemia, obesity, polymyalgia rheumatica, osteoarthritis presents for left inferior anterolateral rib pain x 2 days worse with deep breath, movement, palpation, and cough w/ white sputum x 1 day. EKG notes a rate of 88, sinus with [address] depression in V4 through V6 which appears new compared to previous. No acute ST elevation. She has localized area of tenderness to the left inferior anterior lateral ribs without evidence of cellulitis or trauma. Suspect most likely chest wall strain as she was vacuuming and carrying groceries prior to onset. Consider also PE or pneumonia. Will obtain a cardiac work-up, CT chest and abdomen pelvis and give a dose of Toradol, Valium p.o. and Lidoderm patch and reassess. 1010 --patient reassessed -she appears more comfortable but still complaining of pain. Will give a dose of Dilaudid and reassess. 1045 --CT chest notes left-sided extensive PE. No evidence of right heart strain. Patient reassessed and pain improved. Considering patient's level of pain on arrival, her age and comorbidities, will admit for observation overnight. 1100 --Case discussed with hospitalist who accepts patient for admission. Would like a dose of Eliquis p.o. given here. Patient agreeable with plan for admission. Case discussed with daughter Fortino colón who was notified of plan. Medical Records Medical records reviewed: Yes I reviewed the patient's medical records. Imaging Data Radiologic Study: Radiologist's impression: CT CHEST PE ABD PELVIS W CLINICAL HISTORY: pleuritic chest pain, LUQ abd pain TECHNIQUE: COMPARISON: CT CT CHEST PE CTA from 12/01/2018 FINDINGS: CT angiography of the chest was performed followed by abdominal and pelvic CT. Thoracic aorta is of normal diameter and there is no evidence of dissection. There is predominantly left-sided pulmonary embolism with a saddle embolus of the distal left main pulmonary artery extending into lobar segmental and subsegmental vessels left lower and upper lobes. Emboli are also noted right lower segmental and subsegmental vessels. There is no evidence of right heart strain. Cardiac size is within normal limits Small left pleural effusion noted. Peripheral areas patchy consolidation and/or atelectasis noted, possibility of small peripheral areas of pulmonary infarction not excluded at the left lung base. Otherwise lungs are predominantly clear. Tracheobronchial tree appears intact. No mediastinal or hilar adenopathy. Abdominal aorta is of normal diameter. The aortic wall is heavily calcified. No significant abnormality of major visceral branches including celiac trunk, renal arteries, SMA, MEE is questionably visualized. There is near occlusive stenosis of proximal right common iliac artery. There is near occlusive stenosis distal right common iliac artery at the bifurcation. The internal and external iliac arteries and femoral artery on the right are patent. Less than 50 percent luminal diameter stenosis of left common iliac artery noted. There is mild hepatic steatosis. Spleen is unremarkable in appearance. Gallbladder and bile ducts are CT normal. Pancreas appears normal. Adrenals and kidneys are unremarkable except for incidental tiny right and left renal cysts. No evidence of urinary tract obstruction or calcification. Unremarkable appearance of the adrenal glands. No significant abdominal wall hernia seen. No significant abdominal or pelvic adenopathy. Urinary bladder appears thick walled, nonspecific finding which may indicate cystitis or chronic bladder outlet obstruction. Bladder is nondistended at this time. Appendix is normal. No evidence of diverticulitis or bowel obstruction. IMPRESSION: Extensive pulmonary embolic disease, most marked involving left lower lobe vessels, possible minimal peripheral areas pulmonary infarction seen at the left lung base along with areas of presumed atelectasis. No evidence of right heart strain. 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 Please see above discussion. Lab Data Lab results reviewed: Yes I reviewed the patient's lab results. Labs: Laboratory Tests Range/Units 04/08/20 04/08/20 04/08/20 09:14 09:14 09:14 WBC (4.4-10.8) 10^3/uL RBC (3.93-5.22) 10^6/uL Hgb (11.2-15.7) g/dL Hct (36.0-46.0) % MCV (80-95) fL MCH (27.0-33.0) pg MCHC (32.0-36.0) % RDW (11.7-14.6) % Plt Count (130-400) 10^3/uL MPV (8.0-11.0) fL Immature Gran % Neutrophils % Lymphocytes % Monocytes % Eosinophils % Basophils % Absolute Neutrophils (1.2-6.7) 10^3/uL Absolute Lymphocytes (1.2-3.4) 10^3/uL Absolute Monocytes (0.1-0.8) 10^3/uL Absolute Eosinophils (0.0-0.7) 10^3/uL Absolute Basophils (0.0-0.2) 10^3/uL RBC Morphology PT (9.3-11.0) sec 9.7 INR (0.9-1.1) 1.0 APTT (21.0-31.4) sec 23.8 Sodium (136-145) mmol/L 138 Potassium (3.5-5.1) mmol/L 3.7 Chloride (98-107) mmol/L 102 Carbon Dioxide (21.0-32.0) mmol/L 24.3 Anion Gap (3-11) mmol/L 11.7 H BUN (7-18) mg/dL 19 H Creatinine (0.55-1.02) mg/dL 0.91 Estimated GFR/1.73 m2 (mL/min/1.73m2) >= 60.00 Glucose (74-106) mg/dL 109 H Calcium (8.5-10.1) mg/dL 9.6 Magnesium (1.8-2.4) mg/dL 2.1 Total Bilirubin (0.2-1.0) mg/dL 0.8 AST (15-37) U/L 14 L ALT (14-59) U/L 25 Alkaline Phosphatase (46-116) U/L 61 Troponin I (<0.06) ng/mL < 0.05 Total Protein (6.4-8.2) g/dL 7.9 Albumin (3.4-5.0) g/dL 3.7 Lipase (73-393) U/L 130 Range/Units 04/08/ 09:14 WBC (4.4-10.8) 10^3/uL 13.04 H RBC (3.93-5.22) 10^6/uL 4.90 Hgb (11.2-15.7) g/dL 15.3 Hct (36.0-46.0) % 47.4 H MCV (80-95) fL 96.7 H MCH (27.0-33.0) pg 31.2 MCHC (32.0-36.0) % 32.3 RDW (11.7-14.6) % 14.3 Plt Count (130-400) 10^3/uL 155 MPV (8.0-11.0) fL 11.6 H Immature Gran % 0.0 Neutrophils % 71.0 Lymphocytes % 12.0 Monocytes % 17.0 Eosinophils % 0.0 Basophils % 0.0 Absolute Neutrophils (1.2-6.7) 10^3/uL 9.26 H Absolute Lymphocytes (1.2-3.4) 10^3/uL 1.56 Absolute Monocytes (0.1-0.8) 10^3/uL 2.22 H Absolute Eosinophils (0.0-0.7) 10^3/uL 0.00 Absolute Basophils (0.0-0.2) 10^3/uL 0.00 RBC Morphology Normal PT (9.3-11.0) sec INR (0.9-1.1) APTT (21.0-31.4) sec Sodium (136-145) mmol/L Potassium (3.5-5.1) mmol/L Chloride (98-107) mmol/L Carbon Dioxide (21.0-32.0) mmol/L Anion Gap (3-11) mmol/L BUN (7-18) mg/dL Creatinine (0.55-1.02) mg/dL Estimated GFR/1.73 m2 (mL/min/1.73m2) Glucose (74-106) mg/dL Calcium (8.5-10.1) mg/dL Magnesium (1.8-2.4) mg/dL Total Bilirubin (0.2-1.0) mg/dL AST (15-37) U/L ALT (14-59) U/L Alkaline Phosphatase (46-116) U/L Troponin I (<0.06) ng/mL Total Protein (6.4-8.2) g/dL Albumin (3.4-5.0) g/dL Lipase (73-393) U/L ECG Data Attestation: I personally reviewed and interpreted this ECG (s) as follows: Interpretation: Rate of 88, sinus, [address] depression in V4 through V6 which appears new compared to previous EKG in September 2019. No acute ST elevation. GA 193. QRS 93. QTc 412. HPI General Mode of arrival: ambulatory . Date/Time Provider Initiated Documentation: 04/08/20 09:09 . Limitations to Documentation: no limitations . Information obtained by: patient . HPI Narrative: Pt is a 70yo F who presents to the ED w/ a c/o L sided lower anterior and lateral rib pain that started 2 days ago, worse with movement, deep breath. She states she was vacuuming and carrying groceries but she is unsure if this caused an injury. She has also had a mild cough occasionally productive of white sputum and took an albuterol tr eatment to help with congestion but denies any relief of pain with this. She also took a muscle relaxer at home this morning at 6 AM without relief. She admits to shortness of breath but states this is more due to pain and pain with deep breath. She denies any fever, anterior chest pain, vomiting, dizziness, abdominal pain. She denies any recent surgery or travel. Related Data Home Medications Medication Instructions Recorded Confirmed metoprolol succinate 25 mg PO DAILY #90 tab 12/01/12 04/08/20 simvastatin 20 mg PO DAILY #90 tab 03/11/13 04/08/20 acetaminophen [Tylenol] 650 mg PO Q6H PRN PRN tab-cap 11/23/14 04/08/20 calcium carbonate-vitamin D3 1 ea PO DAILY 11/23/14 04/08/20 [Os-Tony 500 + D3] ipratropium 0.5 mg-albuterol 3 mg 3 ml IH Q8H PRN 09/30/18 04/08/20 (2.5 mg base)/3 mL nebulization soln prednisone 1 mg tablet 5 mg PO DAILY tab 09/30/18 04/08/20 trazodone 50 mg tablet See Rx Instructions .ROUTE 09/30/18 04/08/20 .COMPLEX PRN aspirin [Aspir-Low] 1 mg PO DAILY 12/01/18 04/08/20 diclofenac sodium [Voltaren] 2 g TOPICAL QID PRN 12/01/18 04/08/20 fluticasone propion-salmeterol 1 inh INHALATION Q12H 12/01/18 04/08/20 levalbuterol tartrate [Xopenex HFA] 2 inh INHALATION Q6H PRN 12/01/18 04/08/20 levofloxacin 500 mg PO DAILY #7 tab 12/02/18 04/08/20 prednisone 10 mg PO DAILY #14 tab 12/02/18 04/08/20 Oxygen #1 each 05/01/19 05/01/19 meclizine 12.5 mg PO Q6H PRN PRN #5 tab 05/07/19 04/08/20 vit D3-folic [id number] 1 tab PO 05/12/19 cyclobenzaprine 10 mg PO TID PRN #10 tab NS 09/16/19 04/08/20 albuterol sulfate 2 puff INHALATION PRN PRN 04/08/20 04/08/20 amlodipine 5 mg PO DAILY 04/08/20 04/08/20 chlorthalidone 25 mg PO DAILY 04/08/20 04/08/20 citalopram 40 mg PO DAILY 04/08/20 04/08/20 hydroxyzine HCl 25 mg PO DAILY 04/08/20 04/08/20 pantoprazole 40 mg PO DAILY 04/08/20 04/08/20 Previous Rx's Medication Instructions Recorded levofloxacin 500 mg PO DAILY #7 tab 12/02/18 prednisone 10 mg PO DAILY #14 tab 12/02/18 meclizine 12.5 mg PO Q6H PRN PRN #5 tab 05/07/19 cyclobenzaprine 10 mg PO TID PRN #10 tab NS 09/16/19 Allergies Allergy/AdvReac Type Severity Reaction Status Date / Time clarithromycin Allergy Severe HIVES Verified 04/08/20 09:48 Penicillins Allergy Severe HIVES Verified 04/08/20 09:48 tetracycline Allergy Severe HIVES, Verified 04/08/20 09:48 HALLUCINATIONS eszopiclone [Eszopiclone] Allergy Unknown pt unsure Verified 04/08/20 09:48 of reaction telithromycin [Telithromycin] Allergy Unknown pt unsure Verified 04/08/20 09:48 raloxifene HCl [From Evista] AdvReac Intermediate BODY ACHES Verified 04/08/20 0 9:48 sulfamethoxazole AdvReac Intermediate HEADACHE,VO Verified 04/08/20 09:48 [From Bactrim] MITING trimethoprim [From Bactrim] AdvReac Intermediate HEADACHE,VO Verified 04/08/20 09:48 MITING alendronate sodium AdvReac Mild BODY ACHE Verified 04/08/20 09:48 codeine AdvReac Mild GI UPSET Verified 04/08/20 09:48 risedronate sodium AdvReac Mild BODY ACHES Verified 04/08/20 09:48 [From Actonel] Bisphosphonates AdvReac Unknown achy joints Verified 04/08/20 09:48 hydrocodone [Hydrocodone] AdvReac Unknown vomitting Verified 04/08/20 09:48 Macrolide Antibiotics AdvReac Unknown vomitting Verified 04/08/20 09:48 and hallucinations morphine AdvReac Unknown pt. felt Verified 04/08/20 09:48 like she was floating, states she thinks she got to General Stated Complaint: Chest/Rib TENA: 3 Review of Systems All systems reviewed & are unremarkable except as noted in HPI and below Constitutional Constitutional: Reports as per HPI, Denies chills and Denies fever(s) Eyes Eyes: Denies blurry vision ENT Ears, Nose, Mouth, and Throat: Denies dizziness, Denies sore throat and Denies throat swelling Cardiovascular Cardiovascular: Denies chest pain and Reports dyspnea Respiratory Respiratory: Denies cough and Reports dyspnea Gastrointestinal Gastrointestinal: Denies abdominal pain, Denies diarrhea and Denies vomiting Genitourinary Genitourinary: Denies hematuria and Denies dysuria Musculoskeletal Musculoskeletal: Reports back pain and Denies numbness Integumentary/Breasts Skin/Breast: Denies lesions and Denies rash Neurologic Neurologic: Denies dizziness, Denies localized weakness and Denies numbness Allergic/Immunologic Allergic/Immunologic: Denies throat swelling [facility] Medical History (Updated 04/08/20 @ 11:30 by Kate Medley NP) Abnormal colonoscopy (Resolved 11/11/15) 11/11/15 Dr Brizuela, sessile serrated adenoma, repeat 3 years. mg Adenomatous colon polyp (Resolved) 11/11/15 Dr Brizuela, sessile serrated adenoma, repeat 3 years. mg Allergic rhinitis, unspecified (Acute 12/10/12) Anxiety and depression (Chronic) Benign essential hypertension (Chronic) Benign paroxysmal vertigo (Acute 10/12/11) Chest pain (Acute) Diverticulosis (Acute) 05/12/[address] Mariela Arizmendi, [facility] DJD (degenerative joint disease) (Chronic) Esophageal reflux (Acute 12/10/12) EGD 05/25/13 KD: mild antritis and distal esophagitis; int metaplasia, no dysplasia GERD (gastroesophageal reflux disease) (Chronic) Head pain (Acute) Hyperlipemia (Chronic) Hypertension (Chronic) Leukoplakia of oral cavity (Acute) Lumbago (Acute 12/10/12) Midline cystocele (Acute 12/10/12) pt. unsure Neoplasm of unspecified behavior of bone, soft tissue, and skin (Acute) Obesity (Chronic) Obstructive sleep apnea (adult) (pediatric) (Acute 01/19/13) severe, Dr. Greer, on auto Bi-Level bipap Osteoarthritis (Chronic) Polymyalgia rheumatica (Chronic) Pulmonary nodule (Resolved) Restless legs (Acute 01/19/13) Dr. Greer Sensorineural hearing loss, bilateral (Acute 06/03/14) Serrated polyp of colon (Acute 11/11/15) Sleep apnea (Chronic) Temporal arteritis (Acute) Tinnitus (Acute 06/03/14) Vaginal discharge (Acute 11/23/14) Vertigo (Acute 06/03/14) Surgical History Bilateral salpingectomy with oophorectomy (Resolved ~12/2006) History of cardiac cath (Chronic) Hx of colonoscopy (Chronic) Hysterectomy, Laproscopic (Resolved) Family History Sister Cancer Father Heart disease Mother Heart disease Brother Heart disease Social History Smoking/Tobacco Use Status: Former Tobacco Use Quit Date: 09/02/99 Alcohol Intake: never Drug use: Never Substance use type: does not use Details: alcohol: t-30, pt states she stopped drinking Do you feel safe at home: Yes Do you feel safe in your relationship?: Yes Exam Const General: cooperative, uncomfortable and other (Moaning in pain at times, with deep breath and movement.) HENMT Head: normal to inspection Face and sinus: normal facial exam Mouth: oral mucosae normal Eyes General: appearance normal, both eyes and all related structures EOM: EOM intact bilaterally Neck Neck: normal visual inspection and No submandibular swelling Lymphatic: no lymphadenopathy noted Chest Chest: normal inspection of the chest Chest/axillae images: 1. Localized area of tenderness to left inferior anterolateral ribs. There is no erythema, edema, ecchymosis, rash, lesions, crepitus or step-off. Breast is normal to inspection. Resp Effort & Inspection: normal respiratory effort and able to speak in complete sentences Auscultation: crackles bilaterally at the base Cardio Rate: regular rate Rhythm: regular rhythm GI Inspection: normal to inspection Palpation: soft, not firm, not rigid and tender in the LUQ Auscultation: normal bowel sounds Back/Spine/Pelvis Thoracic/Lumbar Spine: thoracic and lumbar spine normal to inspection Pelvis: no pain with anterior-posterior compression Skin General skin exam: no rashes or lesions noted Neuro General: patient alert, patient awake and patient oriented x3 Cognition: normal cognition Speech: speech normal Motor: muscle tone normal throughout Sensory Exam: no sensory deficits noted Extrem General: normal to inspection, full ROM, capillary refill normal, no calf tenderness bilaterally and no edema Psych Appearance: grossly normal Mental Status: mental status grossly normal Speech and Movement: speech and movement normal Affect: normal affect Course Vital Signs Vital signs: Vital Signs Temperature 97.0 F L 04/08/20 09:04 Pulse 103 H 04/08/20 09:04 Respiratory Rate 20 04/08/20 09:04 Blood Pressure 188/75 H 04/08/20 09:04 Temperature 97.0 F L 04/08/20 09:04 Pulse 103 H 04/08/20 09:04 Respiratory Rate 20 04/08/20 09:04 Respiratory Effort 04/08/20 09:21 Respiratory Depth Normal 04/08/20 09:21 Respiratory Pattern Normal 04/08/20 09:21 Blood Pressure 188/75 H 04/08/20 09:04 Blood Pressure Position Supine 04/08/20 09:04 Oxygen Delivery Method Room Air 04/08/20 09:04 Oxygen Flow Rate 0 04/08/20 09:04 Pain Level 10 04/08/20 09:21
[2020-04-08] MEDS: diazePAM 5 MG TAB PO (09:34)
[2020-04-08] MEDS: Lidocaine 5% Patch 1 PATCH TP (09:35)
[2020-04-08 09:36] LABS: Abs Immature Grans 0.16 10^3/uL (0.0-0.06); HCT 47.4 % (36.0-46.0); HGB 15.3 g/dL (11.2-15.7); MCH 31.2 pg (27.0-33.0); MCHC 32.3 % (32.0-36.0); MCV 96.7 fL (80-95); MPV 11.6 fL (8.0-11.0); Nucleated RBC 0 %; Platelet Count 155 10^3/uL (130-400); RDW 14.3 % (11.7-14.6); RDW-SD 51.3 fL; WBC 13.04 10^3/uL (4.4-10.8)
[2020-04-08] MEDS: Ketorolac 30 MG/ML VIAL IVP (09:36)
[2020-04-08] MEDS: Normal Saline 500 ML IV (09:40)
[2020-04-08 09:51] LABS: PTT Activated 23.8 sec (21.0-31.4); Prothrombin Time 9.7 sec (9.3-11.0)
[2020-04-08 09:58] LABS: Lipase 130 U/L (73-393)
[2020-04-08 10:04] LABS: ALT 25 U/L (14-59); AST 14 U/L (15-37); Albumin 3.7 g/dL (3.4-5.0); Alkaline Phosphatase 61 U/L (46-116); Anion Gap 11.7 mmol/L (3-11); BUN 19 mg/dL (7-18); Bilirubin, Total 0.8 mg/dL (0.2-1.0); CO2 24.3 mmol/L (21.0-32.0); CREATININE 0.91 mg/dL (0.55-1.02); Calcium 9.6 mg/dL (8.5-10.1); Chloride 102 mmol/L (98-107); Glucose 109 mg/dL (74-106); Magnesium 2.1 mg/dL (1.8-2.4); Potassium 3.7 mmol/L (3.5-5.1); Sodium 138 mmol/L (136-145); Total Protein 7.9 g/dL (6.4-8.2)
[2020-04-08 10:05] LABS: Troponin I < 0.05 ng/mL (<0.06)
[2020-04-08 10:10] LABS: Absolute Lymphocyte Count 1.56 10^3/uL (1.2-3.4); Absolute Monocyte Count 2.22 10^3/uL (0.1-0.8); Absolute Neutrophil Count 9.26 10^3/uL (1.2-6.7); Diff Comment Manual Differential; RBC Morphology Normal
[2020-04-08] MEDS: Omnipaque 350 MG/ML 100 ML BTL IV (10:14)
[2020-04-08] MEDS: Normal Saline Flush 10 ML SYR IVP (10:15)
[2020-04-08] MEDS: Normal Saline - Diluent 50 ML VIAL IV (10:15)
[2020-04-08] MEDS: HYDROmorphone 2 MG/ML VIAL 0.5 MG IVP (10:33)
--- NOTE | 2020-04-08 11:19 | W.PM.HP.N ---
Date of service: 04/08/20 Time of Service: 11:20 Assessment and Plan Assessment and plan (1) Pulmonary embolism: Status: Chronic Assessment and plan: hemodynamically stable and oxygenating well on room air. will treat with apixaban. echo not available but no evidence of heart strain by CT scan. bilateral US for DVT pending. (2) Polymyalgia rheumatica: Status: Acute Assessment and plan: stable, continue daily prednisone (3) Benign essential hypertension: Status: Acute Assessment and plan: stable, continue home medications (4) GERD (gastroesophageal reflux disease): Status: Chronic Assessment and plan: continue pantoprazole (5) DVT prophylaxis: Status: Acute Assessment and plan: will be fully anticoagulated on apixaban (6) Discharge planning issues: Status: Acute Assessment and plan: home tomorrow if stays stable. discussed with Dr Munoz who is in agreement History of Present Illness History of Present Illness Chief Complaint: pleuritic chest pain Narrative: This is a 70-year-old female with a history of hypertension, vertigo, GERD, hyperlipidemia, obesity, polymyalgia rheumatica, osteoarthritis presents for left inferior anterolateral rib pain x 2 days worse with deep breath, movement, palpation, and productive cough for 1 day. she denies fever or recent illness. She does report left lower extremity edema and discomfort which has been ongoing for some time now. Her work up in the ED is significant for pulmonary embolism. There is no evidence of heart strain on CT scan. Echocardiogram is not available today. She is oxygenating well on room air with sats in the high 90's, her blood pressure and pulse are stable with no tachycardia or hypotension. She received IV toradol with little effect, requiring IV dilaudid to control her pain. She received apixaban in the ED and will be referred to observation under hospitalist services. Review of Systems Constitutional Constitutional: Denies fever(s) Eyes Eyes: Denies change in vision ENT Ears, Nose, Mouth, and Throat: Denies vertigo, Denies dizziness, Denies nasal congestion and Denies sore throat Cardiovascular Cardiovascular: Reports chest pain (pleuritic), Denies syncope, Denies palpitations and Denies dyspnea Respiratory Respiratory: Denies dyspnea and Denies wheezing Gastrointestinal Gastrointestinal: Denies nausea and Denies vomiting Musculoskeletal Musculoskeletal: Reports joint swelling (left lower extremity pain and swelling) and Denies muscle cramps Integumentary/Breasts Skin/Breast: Denies rash Neurologic Neurologic: Denies vertigo, Denies dizziness and Denies syncope Endocrine Endocrine: Denies palpitations Allergic/Immunologic Allergic/Immunologic: Denies wheezing [facility] Medical History (Updated 04/08/20 @ 11:30 by Kate Medley NP) Abnormal colonoscopy (Resolved 11/11/15) 11/11/15 Dr Brizuela, sessile serrated adenoma, repeat 3 years. mg Adenomatous colon polyp (Resolved) 11/11/15 Dr Brizuela, sessile serrated adenoma, repeat 3 years. mg Allergic rhinitis, unspecified (Acute 12/10/12) Anxiety and depression (Chronic) Benign essential hypertension (Chronic) Benign paroxysmal vertigo (Acute 10/12/11) Chest pain (Acute) Diverticulosis (Acute) 05/12/[address] Mariela Arizmendi, [facility] DJD (degenerative joint disease) (Chronic) Esophageal reflux (Acute 12/10/12) EGD 05/25/13 KD: mild antritis and distal esophagitis; int metaplasia, no dysplasia GERD (gastroesophageal reflux disease) (Chronic) Head pain (Acute) Hyperlipemia (Chronic) Hypertension (Chronic) Leukoplakia of oral cavity (Acute) Lumbago (Acute 12/10/12) Midline cystocele (Acute 12/10/12) pt. unsure Neoplasm of unspecified behavior of bone, soft tissue, and skin (Acute) Obesity (Chronic) Obstructive sleep apnea (adult) (pediatric) (Acute 01/19/13) severe, Dr. Greer, on auto Bi-Level bipap Osteoarthritis (Chronic) Polymyalgia rheumatica (Chronic) Pulmonary nodule (Resolved) Restless legs (Acute 01/19/13) Dr. Greer Sensorineural hearing loss, bilateral (Acute 06/03/14) Serrated polyp of colon (Acute 11/11/15) Sleep apnea (Chronic) Temporal arteritis (Acute) Tinnitus (Acute 06/03/14) Vaginal discharge (Acute 11/23/14) Vertigo (Acute 06/03/14) Surgical History Bilateral salpingectomy with oophorectomy (Resolved ~12/2006) History of cardiac cath (Chronic) Hx of colonoscopy (Chronic) Hysterectomy, Laproscopic (Resolved) Family History Sister Cancer Father Heart disease Mother Heart disease Brother Heart disease Social History Smoking/Tobacco Use Status: Former Tobacco Use Quit Date: 09/02/99 Alcohol Intake: never Drug use: Never Substance use type: does not use Details: alcohol: t-30, pt states she stopped drinking Do you feel safe at home: Yes Do you feel safe in your relationship?: Yes Meds Home Medications and Allergies Home Medications Medication Instructions Recorded Confirmed Type metoprolol succinate 25 mg PO DAILY #90 tab 12/01/12 04/08/20 History simvastatin 20 mg PO DAILY #90 tab 03/11/13 04/08/20 History acetaminophen [Tylenol] 650 mg PO Q6H PRN PRN tab-cap 11/23/14 04/08/20 History calcium carbonate-vitamin D3 1 ea PO DAILY 11/23/14 04/08/20 History [Os-Tony 500 + D3] ipratropium 0.5 mg-albuterol 3 mg 3 ml IH Q8H PRN 09/30/18 04/08/20 History (2.5 mg base)/3 mL nebulization soln prednisone 1 mg tablet 5 mg PO DAILY tab 09/30/18 04/08/20 History trazodone 50 mg tablet See Rx Instructions .ROUTE 09/30/18 04/08/20 History .COMPLEX PRN aspirin [Aspir-Low] 1 mg PO DAILY 12/01/18 04/08/20 History diclofenac sodium [Voltaren] 2 g TOPICAL QID PRN 12/01/18 04/08/20 History fluticasone propion-salmeterol 1 inh INHALATION Q12H 12/01/18 04/08/20 History levalbuterol tartrate [Xopenex HFA] 2 inh INHALATION Q6H PRN 12/01/18 04/08/20 History levofloxacin 500 mg PO DAILY #7 tab 12/02/18 04/08/20 Rx prednisone 10 mg PO DAILY #14 tab 12/02/18 04/08/20 Rx Oxygen #1 each 05/01/19 05/01/19 History meclizine 12.5 mg PO Q6H PRN PRN #5 tab 05/07/19 04/08/20 Rx vit D3-folic [id number] 1 tab PO 05/12/19 History cyclobenzaprine 10 mg PO TID PRN #10 tab NS 09/16/19 04/08/20 Rx albuterol sulfate 2 puff INHALATION PRN PRN 04/08/20 04/08/20 History amlodipine 5 mg PO DAILY 04/08/20 04/08/20 History chlorthalidone 25 mg PO DAILY 04/08/20 04/08/20 History citalopram 40 mg PO DAILY 04/08/20 04/08/20 History hydroxyzine HCl 25 mg PO DAILY 04/08/20 04/08/20 History pantoprazole 40 mg PO DAILY 04/08/20 04/08/20 History Allergies Allergy/AdvReac Type Severity Reaction Status Date / Time clarithromycin Allergy Severe HIVES Verified 04/08/20 09:48 Penicillins Allergy Severe HIVES Verified 04/08/20 09:48 tetracycline Allergy Severe HIVES, Verified 04/08/20 09:48 HALLUCINATIONS eszopiclone [Eszopiclone] Allergy Unknown pt unsure Verified 04/08/20 09:48 of reaction telithromycin [Telithromycin] Allergy Unknown pt unsure Verified 04/08/20 09:48 raloxifene HCl [From Evista] AdvReac Intermediate BODY ACHES Verified 04/08/20 09:48 sulfamethoxazole AdvReac Intermediate HEADACHE,VO Verified 04/08/20 09:48 [From Bactrim] MITING trimethoprim [From Bactrim] AdvReac Intermediate HEADACHE,VO Verified 04/08/20 09:48 MITING alendronate sodium AdvReac Mild BODY ACHE Verified 04/08/20 09:48 codeine AdvReac Mild GI UPSET Verified 04/08/20 09:48 risedronate sodium AdvReac Mild BODY ACHES Verified 04/08/20 09:48 [From Actonel] Bisphosphonates AdvReac Unknown achy joints Verified 04/08/20 09:48 hydrocodone [Hydrocodone] AdvReac Unknown vomitting Verified 04/08/20 09:48 Macrolide Antibiotics AdvReac Unknown vomitting Verified 04/08/20 09:48 and hallucinations morphine AdvReac Unknown pt. felt Verified 04/08/20 09:48 like she was floating, states she thinks she got to Exam Const General: cooperative, healthy appearing and comfortable Nutritional Appearance: average body habitus Orientation: alert, awake and oriented x3 HENMT Head: normal to inspection, normocephalic and atraumatic Mouth: oral mucosae normal Resp Effort & Inspection: normal respiratory effort Auscultation: rales bilaterally at the base Cardio Rate: regular rate Rhythm: regular rhythm GI Inspection: normal to inspection Palpation: soft Auscultation: normal bowel sounds Skin General skin exam: no rashes or lesions noted Neuro General: patient alert, patient awake and patient oriented x3 Cranial Nerves: CN's II-XI intact bilaterally Extrem General: normal to inspection, full ROM and edema Laterality: left Results Labs Result diagrams: 04/08/20 09:14 04/08/20 09:14 Labs: Laboratory Results - last 24 hr 04/08/20 04/08/20 04/08/20 09:14 09:14 09:14 WBC RBC Hgb Hct MCV MCH MCHC RDW Plt Count MPV Immature Gran % Neutrophils % Lymphocytes % Monocytes % Eosinophils % Basophils % Absolute Neutrophils Absolute Lymphocytes Absolute Monocytes Absolute Eosinophils Absolute Basophils RBC Morphology PT 9.7 INR 1.0 APTT 23.8 Sodium 138 Potassium 3.7 Chloride 102 Carbon Dioxide 24.3 Anion Gap 11.7 H BUN 19 H Creatinine 0.91 Estimated GFR/1.73 m2 >= 60.00 Glucose 109 H Calcium 9.6 Magnesium 2.1 Total Bilirubin 0.8 AST 14 L ALT 25 Alkaline Phosphatase 61 Troponin I < 0.05 Total Protein 7.9 Albumin 3.7 Lipase 130 04/08/20 09:14 WBC 13.04 H RBC 4.90 Hgb 15.3 Hct 47.4 H MCV 96.7 H MCH 31.2 MCHC 32.3 RDW 14.3 Plt Count 155 MPV 11.6 H Immature Gran % 0.0 Neutrophils % 71.0 Lymphocytes % 12.0 Monocytes % 17.0 Eosinophils % 0.0 Basophils % 0.0 Absolute Neutrophils 9.26 H Absolute Lymphocytes 1.56 Absolute Monocytes 2.22 H Absolute Eosinophils 0.00 Absolute Basophils 0.00 RBC Morphology Normal PT INR APTT Sodium Potassium Chloride Carbon Dioxide Anion Gap BUN Creatinine Estimated GFR/1.73 m2 Glucose Calcium Magnesium Total Bilirubin AST ALT Alkaline Phosphatase Troponin I Total Protein Albumin Lipase Last Vital Signs Temp 36.1 C L 04/08/20 09:04 Pulse 86 04/08/20 10:32 Resp 14 04/08/20 10:32 BP 143/69 H 04/08/20 10:32 Pulse Ox 97 04/08/20 10:32 COVID-19 Screening Have you,or household,traveled outside [place] in last 14 days?: No Had IN PERSON contact w/suspected or confirmed C-19 person: No
[2020-04-08] MEDS: Apixaban 5 MG TAB 10 MG PO ×2 (11:34→20:47)
--- NOTE | 2020-04-08 11:40 | NUR.NOTE ---
report given to ALESSIO Roland. pt going to room 212
--- NOTE | 2020-04-08 13:50 | PHACLINREV_ITS ---
Pharmacy Admission Review - Admission Clinical Review (Last Reviewed 09/16/19 @ 08:21 by Oj Benitez MD) DVT prophylaxis (Acute) Polymyalgia rheumatica (Acute 10/12/11) Benign essential hypertension (Acute 04/10/13) Discharge planning issues (Acute) clarithromycin Allergy (Severe, Verified 04/08/20 09:48) HIVES Penicillins Allergy (Severe, Verified 04/08/20 09:48) HIVES tetracycline Allergy (Severe, Verified 04/08/20 09:48) HIVES, HALLUCINATIONS eszopiclone [Eszopiclone] Allergy (Unknown, Verified 04/08/20 09:48) pt unsure of reaction telithromycin [Telithromycin] Allergy (Unknown, Verified 04/08/20 09:48) pt unsure raloxifene HCl [From Evista] Adverse Reaction (Intermediate, Verified 04/08/20 09:48) BODY ACHES sulfamethoxazole [From Bactrim] Adverse Reaction (Intermediate, Verified 04/08/20 09:48) HEADACHE,VOMITING trimethoprim [From Bactrim] Adverse Reaction (Intermediate, Verified 04/08/20 09:48) HEADACHE,VOMITING alendronate sodium Adverse Reaction (Mild, Verified 04/08/20 09:48) BODY ACHE codeine Adverse Reaction (Mild, Verified 04/08/20 09:48) GI UPSET risedronate sodium [From Actonel] Adverse Reaction (Mild, Verified 04/08/20 09:48) BODY ACHES Bisphosphonates Adverse Reaction (Unknown, Verified 04/08/20 09:48) achy joints hydrocodone [Hydrocodone] Adverse Reaction (Unknown, Verified 04/08/20 09:48) vomitting Macrolide Antibiotics Adverse Reaction (Unknown, Verified 04/08/20 09:48) vomitting and hallucinations morphine Adverse Reaction (Unknown, Verified 04/08/20 09:48) pt. felt like she was floating, states she thinks she got to Height 5 ft 4 in Weight 80.739 kg - Renal Dosing Renal Dosing: BUN 19 mg/dL (7-18) H 04/08/20 09:14 Creatinine 0.91 mg/dL (0.55-1.02) 04/08/20 09:14 Medications needing adjustments: Reviewed (CrCl ~58.3 mL/min using adjusted BW, current meds okay) - Anticoagulation Anticoagulation: Hgb 15.3 g/dL (11.2-15.7) 04/08/20 09:14 Hct 47.4 % (36.0-46.0) H 04/08/20 09:14 Plt Count 155 10^3/uL (130-400) 04/08/20 09:14 INR 1.0 (0.9-1.1) 04/08/20 09:14 Creatinine 0.91 mg/dL (0.55-1.02) 04/08/20 09:14 DVT Prohphylaxis: Reviewed Medications: Apixaban Therapeutic Anticoagulation: N/A - Opiate Usage Evaluate Pain Scale/Pains Meds: Reviewed Scheduled Bowel Reg ordered if on Opiates?: No (watch for need of BM meds) - Relevant Labs Sodium 138 mmol/L (136-145) 04/08/20 09:14 Potassium 3.7 mmol/L (3.5-5.1) 04/08/20 09:14 Chloride 102 mmol/L (98-107) 04/08/20 09:14 Magnesium 2.1 mg/dL (1.8-2.4) 04/08/20 09:14 Electrolytes, C-Reactive P, ESR: Reviewed (WBC 13.04) - DM Control DM Control: Glucose 109 mg/dL (74-106) H 04/08/20 09:14 Insulin Dosing: N/A (No DM in medical history, gluose was slightly elevated) - Heart Failure/WI Heart Failure/WI: Troponin I < 0.05 ng/mL (<0.06) 04/08/20 09:14 EF%, SREEDHAR's, B-Blockers, Diuretics: N/A - BP Control BP Control: Blood Pressure 139/69 Blood Pressure 127/84 Blood Pressure 143/69 Blood Pressure 188/75 If elevated: N/A (BP good, was elevated when admitted but has normalized) - Qtc Review If Elevated: N/A (QTc 412) - IV to PO Switch IV Medications: Reviewed - Home Meds Home Med List reviewed: Reviewed (Home med list was updated using list from PCP's office. Multiple anticholinergic meds: hydroxyzine, ipratropium, mecliz ine. Consider admin of prednisone from calcium/vitD. Amlodipine may increase the serum concentration of simvastatin/increase risk of toxicty; avoid doses greater than 20 mg when used in combination with amlodipine. Multiple QT prolonging meds:citalopram, hydroxyzine, albuterol, trazodone, pantoprazole) Relevent Home Meds Not ordered & why?: Amlodipine, meclizine, VitD3-folic [id number] - Current meds Current Medication Order Review: Intervened (Increased risk of bleeding (eliquis, trazodone, citalopram, aspirin), multiple QTc prolonging meds (citalopram, pantoprazole, trazadone, hydroxyzine). Discontinued DI meds (already been given). Cancelled Advair, cyclobenzaprine, meclizine, Voltaren and Xopenex - patient is no longer taking at home per med list from PCP.) - Comments Comments/Follow Ups: Monitor WBC and watch for med changes (addition of QTc prolonging meds, need of BM meds). Per H&P, if patient remains stable she will be discharged tomorrow.
[2020-04-08] MEDS: Acetaminophen 325 MG TAB 650 MG PO (16:44)
[2020-04-08] MEDS: HYDROmorphone 2 MG TAB PO ×2 (17:12→22:40)
[2020-04-08 20:34] LABS: COVID-19 RT-PCR UVMMC Result Negative (Negative)
[2020-04-08] MEDS: hydrOXYzine HCL 25 MG TAB PO (20:46)
[2020-04-08] MEDS: Simvastatin 20 MG TAB PO (20:47)
[2020-04-09] VITALS (8 sets, daily range): BP systolic 110–146; BP diastolic 73–79; PULSE 77–96; RESP 17–20; TEMP 36.7–37.6; O2SAT 90–96
[2020-04-09] MEDS: HYDROmorphone 2 MG TAB PO ×3 (04:59→23:27)
[2020-04-09 07:30] LABS: Abs Immature Grans 0.07 10^3/uL (0.0-0.06); Absolute Basophil Count 0.04 10^3/uL (0.0-0.2); Absolute Monocyte Count 1.29 10^3/uL (0.1-0.8); Absolute Neutrophil Count 5.79 10^3/uL (1.2-6.7); Basophils % 0.5; HCT 39.8 % (36.0-46.0); Immature Grans % 0.9; Lymphocytes % 11.1; MCH 31.1 pg (27.0-33.0); MCHC 32.9 % (32.0-36.0); MCV 94.5 fL (80-95); MPV 11.5 fL (8.0-11.0); Monocytes % 15.9; Neutrophils % 71.6; Nucleated RBC 0 %; Platelet Count 129 10^3/uL (130-400); RBC 4.21 10^6/uL (3.93-5.22); RDW 14.3 % (11.7-14.6); RDW-SD 49.8 fL
[2020-04-09 07:34] LABS: Anion Gap 10.1 mmol/L (3-11); BUN 12 mg/dL (7-18); CO2 22.9 mmol/L (21.0-32.0); CREATININE 0.71 mg/dL (0.55-1.02); Chloride 100 mmol/L (98-107); Glucose 93 mg/dL (74-106); Potassium 3.6 mmol/L (3.5-5.1); Sodium 133 mmol/L (136-145)
[2020-04-09 07:37] LABS: WBC 8.09 10^3/uL (4.4-10.8)
[2020-04-09 07:38] LABS: HGB 13.1 g/dL (11.2-15.7)
[2020-04-09] MEDS: Pantoprazole 40 MG TABCR PO (07:50)
[2020-04-09] MEDS: Apixaban 5 MG TAB 10 MG PO ×2 (07:50→19:56)
[2020-04-09] MEDS: Citalopram 20 MG TAB 40 MG PO (07:50)
[2020-04-09] MEDS: Metoprolol CR 50 MG TABCR 25 MG PO (07:50)
[2020-04-09] MEDS: predniSONE 5 MG TAB PO (07:51)
[2020-04-09] MEDS: Chlorthalidone 25 MG TAB 12.5 MG PO (07:51)
[2020-04-09] MEDS: hydrOXYzine HCL 25 MG TAB PO ×2 (07:51→19:56)
[2020-04-09] MEDS: Aspirin E.C. 81 MG TABEC PO (07:52)
[2020-04-09 08:59] LABS: NT-proBNP 251 pg/mL (<300)
[2020-04-09 09:00] LABS: Troponin I < 0.05 ng/mL (<0.06)
[2020-04-09] MEDS: Normal Saline 1,000 ML 125 ML IV ×2 (10:04→17:38)
--- NOTE | 2020-04-09 15:35 | W.PM.PROGNOT ---
Date of Service Date of service: 04/09/20 Time of Service: 15:35 Assessment and Plan Assessment and plan (1) Pulmonary embolism: Status: Chronic Assessment and plan: Extensive, present on admission. Venous dopplers negative for DVT. On eliquis. Trops negative. She is not entirely hemodynamically stable as she is orthostatic. Started on IVF. Encourage IS. Pleuritic chest pain is being adequately addressed. Continue to monitor on tele with plans for echo on Saturday. Will need outpatient follow up with [facility] hem and pulmonology. (2) PAD (peripheral artery disease): Status: Acute Assessment and plan: The patient appears to have non-critical stenosis of R common iliac A on CTA chest/abdomen/pelvis. She has a pulse in her RLE and is asymptomatic. She will need to follow up with [facility] vascular surgery. (3) Orthostasis: Status: Acute Assessment and plan: Could be due to PE. Hydrate with IVF. (4) Polymyalgia rheumatica: Status: Acute Assessment and plan: Continue prednisone. notably, the patient is not on PJP prophylaxis - something she should follow up with pulmonology at [facility] about. (5) Benign essential hypertension: Status: Acute Assessment and plan: I held the patient's diuretics as she is orthostatic and got IV contrast. Continue toprol xl. (6) GERD (gastroesophageal reflux disease): Status: Chronic Assessment and plan: continue pantoprazole (7) Discharge planning issues: Status: Acute Assessment and plan: Patient will stay through Saturday for an echocardiogram to assess for R heart strain. Subjective Subjective Interval history since last seen: Denies dizziness, reports L-sided rib pain, denies shortness of breath, nausea. No BM. States she has no difficulty walking on her feet. Orthostatic. Has not required oxygen. Tele w/ Sinus arrhythmia, 60-70s. Exam Narrative Exam Narrative: General: Very pleasant middle-aged female, A&Ox3, appears mildly anxious, not in acute distress HEENT: EOMI, MMM Heart: RRR, no m/r/g Lungs: CTAB but diminished at bases Abdomen: soft, nontender, nondistended Extremities: mild nonpitting edema BLEs, trace pedal pulse RLE, +1 pedal pulse LLE Objective Objective Clinical Data: Abnormal lab results 04/09/20 04/09/20 Range/Units 06:50 06:50 Plt Count 129 L (130-400) 10^3/uL MPV 11.5 H (8.0-11.0) fL Absolute Lymphocytes 0.90 L (1.2-3.4) 10^3/uL Absolute Monocytes 1.29 H (0.1-0.8) 10^3/uL Sodium 133 L (136-145) mmol/L Vital Signs Temperature 37.6 C H 04/09/20 10:59 Temperature Source Tympanic 04/09/20 10:59 Pulse 79 04/09/20 10:59 Pulse Rhythm Regular 04/09/20 09:35 Respiratory Rate 17 04/09/20 10:59 Respiratory Effort 04/09/20 09:35 Respiratory Depth Normal 04/09/20 09:35 Respiratory Pattern Normal 04/09/20 09:35 Blood Pressure 130/76 04/09/20 10:59 Blood Pressure Position Supine 04/08/20 09:04 Pulse Oximetry 92 L 04/09/20 10:59 Oxygen Delivery Method Room Air 04/09/20 10:59 Oxygen Flow Rate 0 04/09/20 10:59 Pain Level 6 04/09/20 10:59 Comment 04/08/20 19:30 Intake & Output 04/08/20 04/09/20 04/09/20 23:59 11:59 23:59 Intake Total 240 / 240 Output Total 1100 / 1600 500 / 1600 Balance 240 / 240 -1100 / -1600 -500 / -1600 Weight 80.739 kg 80.739 kg Intake: Oral 240 / 240 Output: Urine 1100 / 1600 500 / 1600 Other: Urine Color Yellow Light Vickie Urine Appearance Clear Clear Clear Urine Odor None Voiding Methods Toilet Toilet Laboratory Results WBC 8.09 10^3/uL (4.4-10.8) D 04/09/20 06:50 RBC 4.21 10^6/uL (3.93-5.22) 04/09/20 06:50 Hgb 13.1 g/dL (11.2-15.7) D 04/09/20 06:50 Hct 39.8 % (36.0-46.0) 04/09/20 06:50 MCV 94.5 fL (80-95) 04/09/20 06:50 MCH 31.1 pg (27.0-33.0) 04/09/20 06:50 MCHC 32.9 % (32.0-36.0) 04/09/20 06:50 RDW 14.3 % (11.7-14.6) 04/09/20 06:50 Plt Count 129 10^3/uL (130-400) L 04/09/20 06:50 MPV 11.5 fL (8.0-11.0) H 04/09/20 06:50 Immature Gran % 0.9 04/09/20 06:50 Neutrophils % 71.6 04/09/20 06:50 Lymphocytes % 11.1 04/09/20 06:50 Monocytes % 15.9 04/09/20 06:50 Eosinophils % 0.0 04/09/20 06:50 Basophils % 0.5 04/09/20 06:50 Absolute Neutrophils 5.79 10^3/uL (1.2-6.7) 04/09/20 06:50 Absolute Lymphocytes 0.90 10^3/uL (1.2-3.4) L 04/09/20 06:50 Absolute Monocytes 1.29 10^3/uL (0.1-0.8) H 04/09/20 06:50 Absolute Eosinophils 0.00 10^3/uL (0.0-0.7) 04/09/20 06:50 Absolute Basophils 0.04 10^3/uL (0.0-0.2) 04/09/20 06:50 RBC Morphology Normal 04/08/20 09:14 PT 9.7 sec (9.3-11.0) 04/08/20 09:14 INR 1.0 (0.9-1.1) 04/08/20 09:14 APTT 23.8 sec (21.0-31.4) 04/08/20 09:14 Sodium 133 mmol/L (136-145) L 04/09/20 06:50 Potassium 3.6 mmol/L (3.5-5.1) 04/09/20 06:50 Chloride 100 mmol/L (98-107) 04/09/20 06:50 Carbon Dioxide 22.9 mmol/L (21.0-32.0) 04/09/20 06:50 Anion Gap 10.1 mmol/L (3-11) 04/09/20 06:50 BUN 12 mg/dL (7-18) D 04/09/20 06:50 Creatinine 0.71 mg/dL (0.55-1.02) 04/09/20 06:50 Estimated GFR/1.73 m2 >= 60.00 (mL/min/1.73m2) 04/09/20 06:50 Glucose 93 mg/dL (74-106) 04/09/20 06:50 Calcium 9.0 mg/dL (8.5-10.1) 04/09/20 06:50 Magnesium 2.1 mg/dL (1.8-2.4) 04/08/20 09:14 Total Bilirubin 0.8 mg/dL (0.2-1.0) 04/08/20 09:14 AST 14 U/L (15-37) L 04/08/20 09:14 ALT 25 U/L (14-59) 04/08/20 09:14 Alkaline Phosphatase 61 U/L (46-116) 04/08/20 09:14 Troponin I < 0.05 ng/mL (<0.06) 04/09/20 06:50 NT-Pro-B Natriuret Pep 251 pg/mL (<300) 04/09/20 06:50 Total Protein 7.9 g/dL (6.4-8.2) 04/08/20 09:14 Albumin 3.7 g/dL (3.4-5.0) 04/08/20 09:14 Lipase 130 U/L (73-393) 04/08/20 09:14
--- NOTE | 2020-04-09 16:51 | PDOC.CMIN ---
- If Service Date Differs Date of service: 04/09/20 Time of Service: 17:00 Care Management Initial Assess REASON FOR HOSPITALIZATION:: Pulmonary Embolism PAST MEDICAL HISTORY/PAST SURGICAL HISTORY:: Polymyalgia rheumatica, Anxiety and depression, Sleep apnea, Benign essential hypertension, Temporal arteritis, Hyperlipidemia, DJD, Hypertension, GERD, Pulmonary nodule, Obesity, Osteoarthritis, Abnormal colonoscopy, Adenomatous colon polyp. Surgical History; Bilateral salpingectomy with oophorectomy, Hysterectomy, Laproscopic PREVIOUS FUNCTIONAL STATUS/SOCIAL/FAMILY SUPPORTS:: Tena resides with her , Holger in [place], [place]. Their daughter, Emily resides nearby in [place]. Tena is independent at baseline in the community. CURRENT FUNCTIONAL STATUS:: Tena is lying in bed, speaking with MD. CM continues to follow. ADVANCE DIRECTIVES:: None on file at [facility]. Has patient been provided with info about the portal/API?: Yes Did the patient sign up for the portal?: No CODE STATUS:: Full Code INSURANCE COVERAGE / FINANCIAL ISSUES:: Medicare. [employer] CURRENT HOME/COMMUNITY SERVICES/EQUIPMENT:: No current services or equipment. PRIMARY CARE PHYSICIAN:: Anat Vicente POTENTIAL DISCHARGE NEEDS:: New prescriptions, ECHO per MD. PATIENT/FAMILY EDUCATION NEEDS:: Review discharge instructions, discuss Ask Me Three. ANTICIPATED BARRIERS TO DISCHARGE:: ECHO availability, not anticipated until Saturday. TRANSPORTATION:: Via private vehicle with her . PLAN:: Tena will return home when ready per MD. Anticipate new prescriptions and ECHO on Saturday. She will follow up with her PCP and plan of care and transport via private vehicle with family.
[2020-04-09] MEDS: Simvastatin 20 MG TAB PO (19:56)
[2020-04-09] MEDS: Docusate Sodium 100 MG CAP PO (19:56)
[2020-04-09] MEDS: traZODone 50 MG TAB 100 MG PO (20:56)
[2020-04-09] MEDS: Acetaminophen 325 MG TAB 650 MG PO (20:56)
--- NOTE | 2020-04-10 | DI.CT_ITS ---
EXAM: CT ABD AORTA CTA W RUNOFF CLINICAL HISTORY: PAD, Severe atheromatous disease of the right DIAN. TECHNIQUE: Imaging Protocol: Axial CT angiography was performed with multi-slice acquisition and mu lti-planar and/or 3D reconstructions. CONTRAST MATERIAL: Intravenous: Omnipaque 350 Contrast volume:150 mL contrast route:IV - Oral: No COMPARISON: CT CT CHEST PE ABD PELVIS W from 04/08/2020 FINDINGS: Vascular Structures: Abdomen: Celiac [place]/SMA: No evidence of occlusion or significant stenosis. Renal Arteries: No evidence of occlusion or significant stenosis. There is a single renal artery per fusing each kidney. Aorta: No aneurysm. No dissection. Moderate atherosclerosis. Pelvis: Iliac Arteries: There is occlusion of the right common iliac artery with reconstitution at the level of the bifurcation. Atherosclerosis. Common Femoral Arteries: No evidence of occlusion or significant stenosis. Atherosclerosis. Lower extremities: Common Femoral: No evidence of occlusion or significant stenosis. Superficial Femoral: No evidence of occlusion or significant stenosis. Popliteal: No evidence of occlusion or significant stenosis. Knee Trifurcation: No evidence of occlusion or significant stenosis. Posterior Tibial: No evidence of occlusion or significant stenosis. Dorsalis Pedis: No evidence of occlusion or significant stenosis. Soft Tissues: Lung bases: Small left pleural effusion and subjacent infiltrates which may represent atelectasis or pneumonia. Liver: Normal density. No measurable mass. Gallbladder and biliary tract: No radiodense calculus or dilation. Pancreas: Normal density, no abnormal calcifications or inflammatory process. Spleen: Normal. Kidneys: Normal size, contour and axis. No radiodense stones or obstructive uropathy. No masses seen. Adrenal glands: No masses seen. Aorta: Please see above. Bladder: Symmetric distention, no gross wall thickening. Bowel: No obstruction or bowel wall thickening. Colonic diverticulosis but no evidence of acute diver ticulitis. Normal appendix. Peritoneal cavity: No ascites, collection or mesenteric inflammatory response. Bones: Degenerative changes. Reproductive organs: Status post hysterectomy. IMPRESSION: 1. 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 2. Atherosclerosis. 3. Small left pleural effusion and subjacent infiltrate which may represent atelectasis or pneumonia. RADIATION DOSE DELIVERED: 1,289.83mGy.cm Total DLP DATA REPOSITORY: All CT scans at this facility are submitted to the National Radiology Data Registry (NRDR) Dose Index Registry (DIR) with the [employer] (ACR). RADIATION OPTIMIZATION: All CT scans at this facility use at least one of these dose optimization te chniques: automated exposure control; mA and/or kV adjustment per patient size (includes targeted exa ms where dose is matched to clinical indication); or iterative reconstruction.
[2020-04-10] MEDS: Normal Saline 1,000 ML 125 ML IV ×3 (01:15→18:28)
[2020-04-10 03:32] VITALS: BP 142/70; PULSE 75; RESP 18; TEMP 36.5; O2SAT 93
[2020-04-10 07:27] VITALS: BP 106/63; PULSE 66; RESP 19; TEMP 36.2; O2SAT 94
[2020-04-10 07:48] LABS: Abs Immature Grans 0.12 10^3/uL (0.0-0.06); Absolute Basophil Count 0.02 10^3/uL (0.0-0.2); Absolute Lymphocyte Count 0.88 10^3/uL (1.2-3.4); Absolute Monocyte Count 1.09 10^3/uL (0.1-0.8); Absolute Neutrophil Count 4.71 10^3/uL (1.2-6.7); Basophils % 0.3; HCT 39.6 % (36.0-46.0); HGB 12.3 g/dL (11.2-15.7); Immature Grans % 1.8; Lymphocytes % 12.9; MCH 30.4 pg (27.0-33.0); MCHC 31.1 % (32.0-36.0); MPV 11.3 fL (8.0-11.0); Nucleated RBC 0 %; Platelet Count 133 10^3/uL (130-400); RBC 4.04 10^6/uL (3.93-5.22); RDW-SD 50.5 fL; WBC 6.82 10^3/uL (4.4-10.8)
[2020-04-10 08:00] LABS: Calculated LDL 112 mg/dL (<100); Cholesterol 187 mg/dL (<200); HDL Cholesterol 57 mg/dL (40-60); Magnesium 1.8 mg/dL (1.8-2.4); Triglyceride 94 mg/dL (<150)
[2020-04-10 08:14] LABS: Anion Gap 8.7 mmol/L (3-11); BUN 12 mg/dL (7-18); CO2 24.3 mmol/L (21.0-32.0); CREATININE 0.74 mg/dL (0.55-1.02); Calcium 8.6 mg/dL (8.5-10.1); Chloride 106 mmol/L (98-107); Glucose 93 mg/dL (74-106); Potassium 3.8 mmol/L (3.5-5.1); Sodium 139 mmol/L (136-145)
[2020-04-10] MEDS: Aspirin E.C. 81 MG TABEC PO (08:20)
[2020-04-10] MEDS: HYDROmorphone 2 MG TAB PO ×2 (08:20→15:48)
[2020-04-10] MEDS: Bisacodyl 5 MG TABEC PO (08:20)
[2020-04-10] MEDS: hydrOXYzine HCL 25 MG TAB PO ×2 (08:21→19:40)
[2020-04-10] MEDS: Apixaban 5 MG TAB 10 MG PO ×2 (08:21→19:41)
[2020-04-10] MEDS: Pantoprazole 40 MG TABCR PO (08:22)
[2020-04-10] MEDS: Citalopram 20 MG TAB 40 MG PO (08:22)
[2020-04-10] MEDS: predniSONE 5 MG TAB PO (08:22)
[2020-04-10] MEDS: Docusate Sodium 100 MG CAP PO ×2 (08:22→19:41)
[2020-04-10] MEDS: Metoprolol CR 50 MG TABCR 25 MG PO (08:22)
--- NOTE | 2020-04-10 09:47 | W.PM.PROGNOT ---
Date of Service Date of service: 04/10/20 Time of Service: 09:47 Assessment and Plan Assessment and plan (1) Pulmonary embolism: Status: Chronic Assessment and plan: with oxygen requirements now. continue apixaban. echo pending for Saturday, no evidence of heart strain by CT scan. bilateral US for DVT negative. (2) Polymyalgia rheumatica: Status: Acute Assessment and plan: stable, continue daily prednisone (3) Benign essential hypertension: Status: Acute Assessment and plan: stable with diuretic on hold (4) GERD (gastroesophageal reflux disease): Status: Chronic Assessment and plan: continue pantoprazole (5) PAD (peripheral artery disease): Status: Acute Assessment and plan: will need follow up with vascular outpatient. has doppler pulses, good cap refill, warm to touch, pink and color consistent with left (6) Orthostasis: Status: Acute Assessment and plan: resolved with fluids. (7) DVT prophylaxis: Status: Acute Assessment and plan: will be fully anticoagulated on apixaban (8) Discharge planning issues: Status: Acute Assessment and plan: home likely Saturday after echo. discussed with Dr Silva who is in agreement Subjective Subjective Patient reports: still having pain, tolerating liquids well, tolerating a regular diet and afebrile Interval history since last seen: no lightheadedness Exam Const General: cooperative, healthy appearing and comfortable Nutritional Appearance: average body habitus Orientation: alert, awake and oriented x3 HENMT Head: normal to inspection, normocephalic and atraumatic Mouth: oral mucosae normal Resp Effort & Inspection: normal respiratory effort Auscultation: rales bilaterally at the base Cardio Rate: regular rate Rhythm: regular rhythm GI Inspection: normal to inspection Palpation: soft Auscultation: normal bowel sounds Skin General skin exam: no rashes or lesions noted Neuro General: patient alert, patient awake and patient oriented x3 Cranial Nerves: CN's II-XI intact bilaterally Extrem General: normal to inspection, full ROM and edema Laterality: left Objective Objective Clinical Data: Abnormal lab results 04/10/20 04/10/20 Range/Units 07:10 07:10 MCV 98.0 H (80-95) fL MCHC 31.1 L (32.0-36.0) % MPV 11.3 H (8.0-11.0) fL Absolute Lymphocytes 0.88 L (1.2-3.4) 10^3/uL Absolute Monocytes 1.09 H (0.1-0.8) 10^3/uL LDL Cholesterol, Calc 112 H (<100) mg/dL Vital Signs Temperature 36.2 C L 04/10/20 07:27 Temperature Source Tympanic 04/10/20 07:27 Pulse 66 04/10/20 07:27 Pulse Rhythm Regular 04/10/20 04:08 Respiratory Rate 19 04/10/20 07:27 Respiratory Effort 04/10/20 04:08 Respiratory Depth Normal 04/10/20 04:08 Respiratory Pattern Normal 04/10/20 04:08 Blood Pressure 106/63 04/10/20 07:27 Blood Pressure Position Supine 04/08/20 09:04 Pulse Oximetry 94 L 04/10/20 07:27 Oxygen Delivery Method Room Air 04/10/20 07:27 Oxygen Flow Rate 0 04/10/20 07:27 Pain Level 6 04/10/20 08:20 Comment 04/10/20 07:27 Intake & Output 04/09/20 04/09/20 04/10/20 11:59 23:59 11:59 Intake Total 945.833 / 327.094 2918.916 / 2897.916 Output Total 1100 / 2950 1850 / 2950 1000 / 1000 Balance -1100 / -2003.167 -904.167 / -2003.167 1897.916 / 1897.916 Weight 80.739 kg 80.7 kg Intake: IV 945.833 / 938.375 6132.916 / 2897.916 Output: Urine 1100 / 2950 1850 / 2950 1000 / 1000 Other: Urine Color Yellow Pale Yellow Yellow Urine Appearance Clear Clear Clear Urine Odor None Normal Voiding Methods Toilet Toilet Toilet Laboratory Results WBC 6.82 10^3/uL (4.4-10.8) 04/10/20 07:10 RBC 4.04 10^6/uL (3.93-5.22) 04/10/20 07:10 Hgb 12.3 g/dL (11.2-15.7) 04/10/20 07:10 Hct 39.6 % (36.0-46.0) 04/10/20 07:10 MCV 98.0 fL (80-95) H 04/10/20 07:10 MCH 30.4 pg (27.0-33.0) 04/10/20 07:10 MCHC 31.1 % (32.0-36.0) L 04/10/20 07:10 RDW 14.0 % (11.7-14.6) 04/10/20 07:10 Plt Count 133 10^3/uL (130-400) 04/10/20 07:10 MPV 11.3 fL (8.0-11.0) H 04/10/20 07:10 Immature Gran % 1.8 04/10/20 07:10 Neutrophils % 69.0 04/10/20 07:10 Lymphocytes % 12.9 04/10/20 07:10 Monocytes % 16.0 04/10/20 07:10 Eosinophils % 0.0 04/10/20 07:10 Basophils % 0.3 04/10/20 07:10 Absolute Neutrophils 4.71 10^3/uL (1.2-6.7) 04/10/20 07:10 Absolute Lymphocytes 0.88 10^3/uL (1.2-3.4) L 04/10/20 07:10 Absolute Monocytes 1.09 10^3/uL (0.1-0.8) H 04/10/20 07:10 Absolute Eosinophils 0.00 10^3/uL (0.0-0.7) 04/10/20 07:10 Absolute Basophils 0.02 10^3/uL (0.0-0.2) 04/10/20 07:10 RBC Morphology Normal 04/08/20 09:14 PT 9.7 sec (9.3-11.0) 04/08/20 09:14 INR 1.0 (0.9-1.1) 04/08/20 09:14 APTT 23.8 sec (21.0-31.4) 04/08/20 09:14 Sodium 139 mmol/L (136-145) 04/10/20 07:10 Potassium 3.8 mmol/L (3.5-5.1) 04/10/20 07:10 Chloride 106 mmol/L (98-107) 04/10/20 07:10 Carbon Dioxide 24.3 mmol/L (21.0-32.0) 04/10/20 07:10 Anion Gap 8.7 mmol/L (3-11) 04/10/20 07:10 BUN 12 mg/dL (7-18) 04/10/20 07:10 Creatinine 0.74 mg/dL (0.55-1.02) 04/10/20 07:10 Estimated GFR/1.73 m2 >= 60.00 (mL/min/1.73m2) 04/10/20 07:10 Glucose 93 mg/dL (74-106) 04/10/20 07:10 Calcium 8.6 mg/dL (8.5-10.1) 04/10/20 07:10 Magnesium 1.8 mg/dL (1.8-2.4) 04/10/20 07:10 Total Bilirubin 0.8 mg/dL (0.2-1.0) 04/08/20 09:14 AST 14 U/L (15-37) L 04/08/20 09:14 ALT 25 U/L (14-59) 04/08/20 09:14 Alkaline Phosphatase 61 U/L (46-116) 04/08/20 09:14 Troponin I < 0.05 ng/mL (<0.06) 04/09/20 06:50 NT-Pro-B Natriuret Pep 251 pg/mL (<300) 04/09/20 06:50 Total Protein 7.9 g/dL (6.4-8.2) 04/08/20 09:14 Albumin 3.7 g/dL (3.4-5.0) 04/08/20 09:14 Triglycerides 94 mg/dL (<150) 04/10/20 07:10 Total Cholesterol 187 mg/dL (<200) 04/10/20 07:10 LDL Cholesterol, Calc 112 mg/dL (<100) H 04/10/20 07:10 HDL Cholesterol 57 mg/dL (40-60) 04/10/20 07:10 Lipase 130 U/L (73-393) 04/08/20 09:14 COVID-19 PCR Negative (Negative) 04/08/20 11:45 Nasopharyn COVID-19 PCR Not Applicable 04/08/20 11:45 Ref Test Perform [facility] [place] [facility] 04/08/20 11:45
[2020-04-10 10:08] VITALS: RESP 20
[2020-04-10 11:00] VITALS: BP 135/74; BP 164/73; PULSE 66; PULSE 73
[2020-04-10] MEDS: Omnipaque 350 MG/ML 100 ML BTL IJ (13:50)
[2020-04-10] MEDS: Omnipaque 350 MG/ML 50 ML BTL IJ (13:51)
--- NOTE | 2020-04-10 14:37 | DI.VRAD_ITS ---
PROCEDURE INFORMATION: Exam: CTA Angiogram of the Abdominal Aorta and Bilateral Lower Extremities (Run-off) With IV Contrast Exam date and time: 04/10/2020 1:21 PM Age: 70 years old Clinical indication: Other: Pad, severe atheromatous disease of the right celestino TECHNIQUE: Imaging protocol: CT angiogram of the abdominal aorta, pelvis and bilateral lower extremities with IV iodinated contrast. 3D rendering: MIP and/or 3D reconstructed images were created by the technologist. Radiation optimization: All CT scans at this facility use at least one of these dose optimization techniques: automated exposure control; mA and/or kV adjustment per patient size (includes targeted exams where dose is matched to clinical indication); or iterative reconstruction. Contrast material: OMNIPAQUE 350; Contrast volume: 150 ml; Contrast route: INTRAVENOUS (IV); COMPARISON: CT CHEST PE ABD PELVIS W 04/08/2020 10:18 AM FINDINGS: Small left pleural effusion. Mild left basilar consolidation consistent with atelectasis. Diffuse atherosclerotic calcification of the aorta and iliac arteries without aneurysmal dilatation. Multifocal moderate areas of stenosis to the right common iliac artery with a relatively high-grade stenosis in the mid right common iliac artery. No occlusion identified. Prior hysterectomy. No other hemodynamically significant stenosis. IMPRESSION: 1. 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 2. Incidental small left pleural effusion and left basilar atelectasis. Dictated and Authenticated by: Jonathan Lugo MD. Ordering:SANNA Love MD
--- NOTE | 2020-04-10 14:40 | PDOC.CMPRO ---
Care Management Progress Note S/O: Tena is sitting up in her chair when CM meets with her. She reports filling her prescriptions at [facility], though will fill prescriptions at [facility] in [place] upon discharge as it will be faster. Her brought her BIPAP in and she is on room air when CM meets with her. She is quite pleasant in interaction but reports feeling tired. CM continues to follow. A: 70 year old female admitted to [facility] 04/09/20 for Pulmonary Embolism P: Tena will return home when ready per MD. Anticipate new Eliquis prescription support and ECHO on Saturday. She will follow up with her PCP and plan of care and transport via private vehicle with family.
[2020-04-10 15:36] VITALS: BP 131/70; PULSE 65; RESP 18; TEMP 37; O2SAT 93
[2020-04-10] MEDS: traZODone 50 MG TAB 100 MG PO (19:40)
[2020-04-10] MEDS: Simvastatin 20 MG TAB PO (19:40)
[2020-04-10 19:53] VITALS: BP 127/70; PULSE 83; RESP 17; TEMP 37.1; O2SAT 94
[2020-04-11] VITALS (8 sets, daily range): BP systolic 115–129; BP diastolic 66–76; PULSE 63–82; RESP 17–20; TEMP 36.3–37.5; O2SAT 92–95
[2020-04-11] MEDS: Normal Saline 1,000 ML 125 ML IV (02:02)
--- NOTE | 2020-04-11 07:28 | DI.US_ITS ---
APPROVED REPORT EXAM: Comprehensive 2D, Doppler, and color-flow Echocardiogram Patient Location: In-Patient Room/Bed: [address] Laborer: Mackenzie Reddy RDCS (AE) Indications: Pulmonary Embolism Other Information Study Quality: Good Conclusion Left Ventricle : The left ventricle is normal size. The left ventricular systolic function is normal. The left ventricular ejection fraction is within the normal range. There is normal left ventricular wall thickness. There is normal LV segmental wall motion. Diastolic function is indeterminate. LVEF i s 60%. Right Ventricle : The right ventricle is normal size. The right ventricular systolic function is norm al. Atria : Left atrium is borderline dilated. The right atrium size is normal. Mitral Valve : Mild mitral annular calcification. No evidence of mitral valve stenosis. Mild mitral r egurgitation. Great Vessels : The aortic root is normal in size. The ascending aorta is mildly dilated. Aortic arch is normal in caliber. IVC is normal in size and collapses >50% with inspiration. Please see remainder of study for further details. Images from prior study in 2014 are not available for comparison. Wall motion Left Ventricle The left ventricle is normal size. The left ventricular systolic function is normal. The left ventric ular ejection fraction is within the normal range. There is normal left ventricular wall thickness. T here is normal LV segmental wall motion. Diastolic function is indeterminate. There is no ventricular septal defect visualized. LVEF is 60%. Right Ventricle The right ventricle is normal size. The right ventricular systolic function is normal. Atria Left atrium is borderline dilated. The right atrium size is normal. The interatrial septum is intact with no evidence for an atrial septal defect. Aortic Valve The Aortic valve is sclerotic. Aortic valve is trileaflet. There is no aortic valvular stenosis. No a ortic regurgitation is present. Mitral Valve Mild mitral annular calcification. No evidence of mitral valve stenosis. Mild mitral regurgitation. Tricuspid Valve The tricuspid valve is normal in structure. There is no tricuspid valve stenosis. Mild to moderate tr icuspid regurgitation. Pulmonic Valve The pulmonary valve is normal in structure. There is no pulmonic valvular stenosis. Mild pulmonic reg urgitation. Great Vessels The aortic root is normal in size. The ascending aorta is mildly dilated. Aortic arch is normal in ca liber. IVC is normal in size and collapses >50% with inspiration. Pericardium There is no pericardial effusion. 2D Dimensions IVSD d PLAX 0.93 cm F: 0.6-1.0 LV Vol A2C d MOD 67.4 mL LVPW d PLAX 0.92 cm F: 0.6 - 1.0 LV Vol A4C d MOD 58.0 mL LVID d PLAX 5.05 cm F: 3.8 - 5.2 LA vol/ BSA A2C s A-L 31.0 mL/m2 LVDs 3.45 cm F: 2.2 - 3.5 LA vol/ BSA A4C s A-L 36.2 mL/m2 Ao Root d 2.42 cm F: 2.7 - 3.3 LA Vol/ BSA Biplane s A-L 35.8 mL/m2 RA Area A4C 12.64 cm2 LA Area A4C s MOD 22.00 cm2 RA Vol/ BSA A4C s A-L 16.3 mL/m2 LA Area A2C s MOD 19.03 cm2 Ao Asc Diam d 3.69 cm F: 2.3 - 3.1 LV EF A4C MOD 59.8 % LV EF Teichholz 58.8 % LV EF A2C MOD 58.7 % LVEF (Valles's) 57.92 % F: 54 - 74 LV EF Biplane MOD 57.9 % LV Volume 48.14 mL F: 46 - 106 SV 36.24 mL LV Volume Index 26.02 mL/m2 F: 29 - 61 SV Index 19.52 mL/m2 LV Vol Biplane MOD 62.6 mL FS 31.20 % M-Mode TAPSE 2.48 cm (M/F) >1.7 LV Diastology MV E' medial 0.114 (>0.07 m/s) E/A Ratio 1.2 LV E/e MED 10.85 (<14) MV E Vmax 1.24 (0.4-1.3 m/s) MV E' lateral 0.092 (>0.1 m/s) MV A Vmax 1.05 (0.4-1.3 m/s) LV E/e LAT 13.50 (<14) MV E/A Ratio 1.14 MV E/E' medial 10.90 MV E/E' lateral 13.51 Aortic Valve LVOT Area 3.15 cm2 AoV Area Vmax 2.66 cm2 LVOT Vmax 1.39 m/s AoV Area/ BSA (Vmax) 1.43 cm2/m2 LVOT Mean Dave. 0.79 m/s CRISTIAN Mean Dave. 2.30 cm2 LVOT Peak Grad 7.7 mmHg CRISTIAN Mean Dave. Index 1.24 cm2/m2 LVOT Mean Grad 3.1 mmHg LVOT VTI 0.298 m LVOT Diam s 2.00 cm AoV Vmax 1.64 m/s Velocity Ratio 0.84 AoV Mean Dave. 1.09 m/s AoV Peak Grad 10.8 mmHg LVOT SV 93.96 mL AoV Mean Grad 5.5 mmHg AoV VTI 0.324 m AoV Area VTI 2.90 cm2 AoV Area/ BSA (VTI) 1.56 cm/m2 Mitral Valve MV DT 231 (160-240 msec) MV PHT 67 msec MV Area PHT 3.29 cm2 MV VTI 0.456 m MV Area VTI 2.06 (4.0-6.0 cm2) Pulmonary Valve PV Vmax 1.01 (0.5-1.5 m/s) RVOT Peak Gr. 2.23 mmHg PV Peak Grad 4.1 mmHg RVOT Mean Gr. 1.15 mmHg PV Mean Grad 2.0 mmHg RVOT VTI 0.174 m PV VTI 0.187 m RVOT Vmax 0.75 m/s Tricuspid Valve TR Peak Grad 35.9 mmHg TR Vmax 3.00 m/s RA Pressure 3.00 mmHg RVSP (TR) 39.0 mmHg
[2020-04-11] MEDS: predniSONE 5 MG TAB PO (08:12)
[2020-04-11] MEDS: Aspirin E.C. 81 MG TABEC PO (08:13)
[2020-04-11] MEDS: Apixaban 5 MG TAB 10 MG PO (08:13)
[2020-04-11] MEDS: hydrOXYzine HCL 25 MG TAB PO (08:13)
[2020-04-11] MEDS: Metoprolol CR 50 MG TABCR 25 MG PO (08:14)
[2020-04-11] MEDS: Pantoprazole 40 MG TABCR PO (08:14)
[2020-04-11] MEDS: Docusate Sodium 100 MG CAP PO (08:14)
[2020-04-11] MEDS: Citalopram 20 MG TAB 40 MG PO (08:14)
--- NOTE | 2020-04-11 10:06 | W.PM.DS.N ---
Date of service: 04/11/20 Time of Service: 10:06 DS: Diagnosis Discharge Diagnosis (1) Pulmonary embolism: Status: Chronic (2) Polymyalgia rheumatica: Status: Acute (3) Benign essential hypertension: Status: Acute (4) GERD (gastroesophageal reflux disease): Status: Chronic (5) PAD (peripheral artery disease): Status: Acute (6) Orthostasis: Status: Acute Discharge Plan Disposition Patient Disposition: HOME Condition: Stable Discharge Details Chief Complaint: Chest/Rib Clinical Impression: Pulmonary embolism Reason For Visit: PULMONARY EMBOLISM Admit Date/Time: 04/09/20 09:40 Admit Provider: Allen Marcos Attending Provider: Allen Marcos Primary Care Provider: Anat Vicente ED Provider: Luanne Encarnacion Hospital Course Hospital Course: This is a 70-year-old female with a history of hypertension, vertigo, GERD, hyperlipidemia, obesity, polymyalgia rheumatica, osteoarthritis presents for left inferior anterolateral rib pain x 2 days worse with deep breath, movement, palpation, and productive cough for 1 day. she denies fever or recent illness. She does report left lower extremity edema and discomfort which has been ongoing for some time now. Her work up in the ED is significant for pulmonary embolism. There is no evidence of heart strain on CT scan. Echocardiogram is not available today. She is oxygenating well on room air with sats in the high 90's, her blood pressure and pulse are stable with no tachycardia or hypotension. She received IV toradol with little effect, requiring IV dilaudid to control her pain. She received apixaban in the ED and was referred to observation under hospitalist services. Her hospital course was complicated with hypotension. Her amlodipine in chlorthalidone were placed on hold. She received IV fluid bolus with improvement in her symptoms. Her systolic blood pressure was well controlled in the 120s to 130s. She will be advised to continue holding her medications at discharge and will check with her primary care provider when to resume. She also was noted to be hypoxic on hospital night 1 with sats in the mid to high 80s. She did report that she is supposed to have CPAP at night for obstructive sleep apnea but has not been using her device since September. Respiratory did have her home unit brought in and she continue to use during hospitalization. There was no further episodes of hypoxia noted. She remained hemodynamically stable and oxygenating well for the rest of her hospitalization. She did continue to have pleuritic chest pain which was managed with oral Dilaudid. She will be discharged to home with a small supply to continue to use for pain not relieved by Tylenol. Her initial CTA also noted near occlusive stenosis of the right proximal common iliac artery and near occlusive stenosis distal right common iliac artery at the bifurcation. Her case was discussed with vascular surgery at [facility] who did recommend a CT of the aorta with runoff. The results were discussed with with from vascular surgery who recommends outpatient follow-up with her service after discharge. An echocardiogram demonstrated no evidence of right-sided heart strain. Her left ventricular systolic function is normal with an EF of 60%. Her right ventricle is normal size and right ventricular systolic function is normal. Left atrium is borderline dilated right atrium is normal in size. Her bilateral ultrasounds were negative for DVT. She will be discharged home to follow-up with primary care provider and with vascular surgery for further evaluation and recommendations Home Meds and New Rx's Prescriptions: New hydromorphone 2 mg Tablet 2 mg PO Q4H PRN PRNQty: 12 RF: 0 Eliquis 5 mg Tablet 10 mg PO BID Qty: 14 RF: 0 Eliquis 5 mg Tablet 5 mg PO BID Qty: 60 RF: 0 Continued trazodone 50 mg tablet See Rx Instructions .ROUTE .COMPLEX PRNRF: 0 ipratropium-albuterol 0.5 mg-3 mg(2.5 mg base)/3 mL solution for nebulization 3 ml IH Q8H PRNRF: 0 (DME) Oxygen Tank See Rx Instructions .ROUTE .MEDSUPPLY Qty: 1 RF: 0 metoprolol succinate 50 MG tablet extended release 24 hr 25 mg PO DAILY Qty: 90 RF: 3 simvastatin 40 MG tablet 20 mg PO QPM Qty: 90 RF: 0 acetaminophen [Tylenol] 325 MG tablet 650 mg PO Q6H PRN PRNRF: 0 calcium carbonate-vitamin D3 [Os-Tony 500 + D3] 1 EACH tablet 1 ea PO BID RF: 0 prednisone 1 mg tablet 5 mg PO DAILY RF: 0 vit D3-folic alpt-R5-R3-B12 2,000-800-0.32 unit-mcg-mg Tablet 1 tab PO RF: 0 aspirin [Aspir-Low] 81 mg Tablet,Delayed Release (/Ec) 81 mg PO DAILY RF: 0 citalopram 40 mg tablet 40 mg PO DAILY RF: 0 pantoprazole 40 mg tablet,delayed release (DR/EC) 40 mg PO DAILY RF: 0 hydroxyzine HCl 25 mg tablet 25 mg PO BID RF: 0 albuterol sulfate 90 mcg/actuation HFA aerosol inhaler 1 puff INHALATION Q6H PRN PRNRF: 0 Discontinued meclizine 12.5 MG tablet 12.5 mg PO Q6H PRN PRNQty: 5 RF: 0 chlorthalidone 25 mg tablet 12.5 mg PO DAILY RF: 0 amlodipine 5 mg tablet 5 mg PO DAILY RF: 0 Discharge Instructions Instructions: Pulmonary Embolism (DC), Peripheral Artery Disease (DC) Additional Instructions: Continue to hold your blood pressure medications until you follow-up with your primary care provider. You should check your blood pressure 3 times weekly if able and bring this log to your appointment. Continue taking your blood thinner apixaban as directed. You will need 7 more doses at 10 mg twice daily through 04/14/2020 and on the morning of 04/15/2020 start 5 mg twice daily. You will continue this medication until directed by your primary care provider. Stand Alone Forms: Nursing Discharge Form Referrals: H[place]ATOLOGY[place]C,[facility] [place] - (PE, hypercoag) PULMONOLOGY,[facility] [place] - (PE on apixaban) Anat Vicente MD [Primary Care Provider] - (1 week) Holger Alaniz [ [facility] STAFF PHYSICIAN] - (Discussed with Dr Mariscal. PAD, right common iliac artery) Activity:: Activity as Tolerated Equipment/Supplies:: No Equipment Needed Diet:: As Tolerated DS: Summary Status at Discharge Functional status at discharge: independent ambulation Overall status at discharge: patient is progressing back to baseline Mental Status: mental status grossly normal Speech and Movement: speech and movement normal Mood: congruent mood Affect: normal affect Exam Const General: cooperative, healthy appearing and comfortable Nutritional Appearance: average body habitus Orientation: alert, awake and oriented x3 HENMT Head: normal to inspection, normocephalic and atraumatic Mouth: oral mucosae normal Resp Effort & Inspection: normal respiratory effort Auscultation: rales bilaterally at the base Cardio Rate: regular rate Rhythm: regular rhythm GI Inspection: normal to inspection Palpation: soft Auscultation: normal bowel sounds Skin General skin exam: no rashes or lesions noted Neuro General: patient alert, patient awake and patient oriented x3 Cranial Nerves: CN's II-XI intact bilaterally Extrem General: normal to inspection, full ROM and edema Laterality: left Psych Mental Status: mental status grossly normal Speech and Movement: speech and movement normal Mood: congruent mood Affect: normal affect DS: Data Vitals/I&O Vitals and I&O: Vital Signs Temperature 37.2 C 04/11/20 07:17 Temperature Source Temporal Artery Scan 04/11/20 07:17 Pulse 82 04/11/20 07:17 Pulse Rhythm Regular 04/11/20 05:36 Respiratory Rate 17 04/11/20 07:17 Respiratory Effort Non-Labored 04/11/20 05:36 Respiratory Depth Normal 04/11/20 05:36 Respiratory Pattern Normal 04/11/20 05:36 Blood Pressure 117/72 04/11/20 07:17 Blood Pressure Position Supine 04/08/20 09:04 Pulse Oximetry 95 04/11/20 07:17 Oxygen Delivery Method Room Air 04/11/20 07:17 Oxygen Flow Rate 0 04/11/20 07:17 Fraction of Inspired Oxygen (FIO2) 21 04/11/20 09:07 Pain Level 6 04/11/20 07:17 Comment 04/10/20 19:53 Intake & Output 04/10/20 04/10/20 04/11/20 11:59 23:59 11:59 Intake Total 2897.916 / 4507.916 1610 / 4507.916 1305.833 / 1305.833 Output Total 1000 / 2600 1600 / 2600 Balance 1897.916 / 1907.916 / 0207.202 5551.833 / 1305.833 Weight 80.7 kg 83.4 kg Intake: IV 2897.916 / 3897.916 999 / 3897.916 945.833 / 945.833 Oral 610 / 610 360 / 360 Output: Urine 1000 / 2600 1600 / 2600 Other: Urine Color Yellow Yellow Urine Appearance Clear Clear Clear Urine Odor Normal Normal Voiding Methods Toilet Toilet Data Completed and Pending Labs on day of discharge: Labs from last 24 hours 04/08/20 11:45 COVID-19 PCR Negative Ref Test Perform Site [facility] Medical History (Updated 04/09/20 @ 15:50 by Micaela Silva MD) Abnormal colonoscopy (Resolved 11/11/15) 11/11/15 Dr Brizuela, sessile serrated adenoma, repeat 3 years. mg Adenomatous colon polyp (Resolved) 11/11/15 Dr Brizuela, sessile serrated adenoma, repeat 3 years. mg Allergic rhinitis, unspecified (Acute 12/10/12) Anxiety and depression (Chronic) Benign essential hypertension (Chronic) Benign paroxysmal vertigo (Acute 10/12/11) Chest pain (Acute) Diverticulosis (Acute) 05/12/[address] Mariela Arizmendi, [facility]D (degenerative joint disease) (Chronic) Esophageal reflux (Acute 12/10/12) EGD 05/25/13 KD: mild antritis and distal esophagitis; int metaplasia, no dysplasia GERD (gastroesophageal reflux disease) (Chronic) Head pain (Acute) Hyperlipemia (Chronic) Hypertension (Chronic) Leukoplakia of oral cavity (Acute) Lumbago (Acute 12/10/12) Midline cystocele (Acute 12/10/12) pt. unsure Neoplasm of unspecified behavior of bone, soft tissue, and skin (Acute) Obesity (Chronic) Obstructive sleep apnea (adult) (pediatric) (Acute 01/19/13) severe, Dr. Greer, on auto Bi-Level bipap Osteoarthritis (Chronic) Polymyalgia rheumatica (Chronic) Pulmonary nodule (Resolved) Restless legs (Acute 01/19/13) Dr. Greer Sensorineural hearing loss, bilateral (Acute 06/03/14) Serrated polyp of colon (Acute 11/11/15) Sleep apnea (Chronic) Temporal arteritis (Acute) Tinnitus (Acute 06/03/14) Vaginal discharge (Acute 11/23/14) Vertigo (Acute 06/03/14) Surgical History Bilateral salpingectomy with oophorectomy (Resolved ~12/2006) History of cardiac cath (Chronic) Hx of colonoscopy (Chronic) Hysterectomy, Laproscopic (Resolved) Family History Sister Cancer Father Heart disease Mother Heart disease Brother Heart disease Social History Smoking/Tobacco Use Status: Former Tobacco Use Quit Date: 09/02/99 Alcohol Intake: never Drug use: Never Substance use type: does not use Details: alcohol: t-30, pt states she stopped drinking Do you feel safe at home: Yes Do you feel safe in your relationship?: Yes
--- NOTE | 2020-04-11 15:18 | PDOC.CMDIS ---
- If Service Date Differs Date of service: 04/11/20 Time of Service: 15:18 LACE Index Scoring Tool - Questions: Length of Stay (in days): 2 Acuity (Admit via E.D.?): Yes E.D. Visits: 2 - Answers: Total Score: 7 Risk of Readmission: Low Risk Care Management Discharge Reason for Hospitalization: Pulmonary Embolism Discharge Plan: Tena will be discharged home with no new services. She will follow up with her PCP and discharge plan of care. Tena will be started on Eliquis at discharge. CM coordinated the use of a discount card at [employer] in [place], which will provide Tena with 30 days of free Eliquis.Tena will transport home via private vehicle with her . Patient/Family Education Needs: Discharge plan, limitations, follow up plan, Ask Me Three.
--- NOTE | 2020-04-12 08:40 | NT_ITS ---
Date of service: 04/12/20 Time of Service: 08:41 PT Notes Visit Reasons: PULMONARY EMBOLISM Tena was discharged on 04/11/2020 and was not evaluated nor did she receive skilled physical therapy services. Thank you for this referral. Shandra Reed PT, DPT, CLT [facility] [place], [place]
== END 2020-04-11 15:16 | disposition home or self-care (01) | DRG 176 ==
LOC: ER 11:24 → MS 11:53
PROVIDERS: Internal Medicine; Nurse Practitioner Acute Care; Admitting Provider Family Medicine; Emergency Provider Physician Assistant; PCP Family Medicine; Visit Provider Family Medicine
DX: I26.99 Other pulmonary embolism without acute cor pulmonale (principal); M35.3 Polymyalgia rheumatica; I34.0 Nonrheumatic mitral (valve) insufficiency; R07.81 Pleurodynia; I70.201 Unspecified atherosclerosis of native arteries of extremities, right leg; Z87.891 Personal history of nicotine dependence; I10 Essential (primary) hypertension; K21.9 Gastro-esophageal reflux disease without esophagitis; E78.5 Hyperlipidemia, unspecified; I95.1 Orthostatic hypotension; R09.02 Hypoxemia; G47.33 Obstructive sleep apnea (adult) (pediatric); Z91.19 Patient's noncompliance with other medical treatment and regimen; E66.9 Obesity, unspecified
CPT/HCPCS: 36415; 71275; 74177; 75635; 80048; 80053; 80061; 83690; 93005; 93306; 94618; 96361; 96374; 96375; 99220; 99232; 99233; 99239; 99285; U0003; 83735; 83880; 84484; 85025; 85610; 85730; 93010; 93970; G0378; J1885; J3490; J7512; Q9967

== ENCOUNTER 2020-05-24 00:38 | Outpatient (CLI) | payer MEDICARE, OTHER, SELFPAY ==
--- NOTE | 2020-05-24 | DI.MAMMO_ITS ---
EXAM: MG MAMMO SCREENING CLINICAL HISTORY: SCREENING,Z12.39 TECHNIQUE: Bilateral full field digital CC and MLO mammographic images were obtained with 3D tomosyn thesis and utilizing computer aided detection (CAD). COMPARISON: Available for comparison. FINDINGS: Masses/Architectural Distortion: There is an asymmetric density in the posterior superior left breast seen on the MLO view. This area is more prominent compared to prior examinations. Microcalcifications: No suspicious pleomorphic-type are seen. Skin Thickening/Nipple Retraction: None. IMPRESSION: 1. Increased prominence of an asymmetric density in the posterior superior left breast on the MLO vie w. 2. Spot compression views requested for further evaluation. Ultrasound may be indicated at that time . BI-RADS Category 0 - Assessment Incomplete: Need additional imaging evaluation Breast Density - Category B - Scattered areas of fibroglandular density A negative radiographic report should not delay biopsy if a dominant or clinically suspicious mass is present. Up to ten percent of cancers are not identified on mammography. A negative report may reinforce clinical impression. Adenosis and dense breasts may obscure an underlying neoplasm. False positive reports average 6 to 10%. Patient will receive a letter notifying them of these results.
== END 2020-05-24 00:58 ==
PROVIDERS: PCP Family Medicine; Visit Provider Family Medicine
DX: Z12.31 Encounter for screening mammogram for malignant neoplasm of breast (principal); R92.2 Inconclusive mammogram
CPT/HCPCS: 77063; 77067

== ENCOUNTER 2020-05-26 02:07 | Outpatient (CLI) | payer MEDICARE, OTHER, SELFPAY ==
--- NOTE | 2020-05-26 | DI.US_ITS ---
EXAM: MG MAMMO SCREEN CALL BACK UNI and U/S breast LT limited CLINICAL HISTORY: F/U MAMMO,INCREASED PROMINENCE ASYMMETRIC DENSITY ON MLO VIEW. TECHNIQUE: Craniocaudal and mediolateral oblique Full Field Digital Mammography views of the left br east with Computer Aided Diagnosis followed by Tomosynthesis and left breast ultrasound. COMPARISON: Priors for comparison. FINDINGS: Mammography/Tomosynthesis: Masses/Architectural Distortion: Asymmetric densities is not persist on the additional views. Microcalcifictions: No suspicious pleomorphic-type are seen. Biopsy clips are again seen in the media l left breast. Skin Thickening/Nipple Retraction: None. Left breast US: Echotexture: Normal appearance of the glandular tissue. Shadowing: No suspicious foci. Cyst: None. Solid lesions: None seen. Ductal dilation: None. IMPRESSION: 1. No evidence of malignancy is noted. 2. Six-month follow-up left mammogram is recommended for re-evaluation. 3. The findings were discussed with the patient on the date of the examination. BI-RADS Category 3 - 6 month - Probably Benign Finding: Recommend follow-up mammography in 6 months Breast Density - Category B - Scattered areas of fibroglandular density A negative radiographic report should not delay biopsy if a dominant or clinically suspicious mass is present. Up to ten percent of cancers are not identified on mammography. A negative report may reinforce clinical impression. Adenosis and dense breasts may obscure an underlying neoplasm. False positive reports average 6 to 10%. Patient will receive a letter notifying them of these results.
== END 2020-05-26 02:27 ==
PROVIDERS: PCP Family Medicine; Visit Provider Family Medicine
DX: R92.8 Other abnormal and inconclusive findings on diagnostic imaging of breast (principal)
CPT/HCPCS: 76642; 77063; 77067

== ENCOUNTER 2020-06-08 00:38 | Outpatient (CLI) | payer MEDICARE, OTHER, SELFPAY ==
--- NOTE | 2020-06-08 | DI.DEXA_ITS ---
EXAM: XR DEXA BONE DENSITY W/WO MARIXA CLINICAL HISTORY: STEROID DEPENDENCY F19.20,POLYMYALGIA RHEUMATICA M35.3,POSTMENOPAUSAL Z78.0 TECHNIQUE: COMPARISON: No exams were available for comparison FINDINGS: DEXA scan was performed according to the usual protocol. Please see the accompanying data sheets. F indings for left hip scanning are T-score -1.8 with left femoral neck T-score -0.6. Prior study of M ay 2017 showed left hip T-score -0.4. Lumbar spine T-score is -1.7. Prior study of 2018 showed lumbar T-score -1.1. Left forearm T-score is -1.7, compared to -0.9 on prior study of 2018 IMPRESSION: Findings consistent with osteopenia according to the WHO criteria. The lateral vertebral scanogram shows question slight anterior wedging of mid to upper thoracic verte bral bodies, the vertebral bodies are not ideally seen, thoracic spine x-rays recommended for further evaluation. RADIATION DOSE DELIVERED: Total DLP
== END 2020-06-08 00:58 ==
PROVIDERS: PCP Family Medicine; Visit Provider Family Medicine
DX: Z78.0 Asymptomatic menopausal state (principal); M85.89 Other specified disorders of bone density and structure, multiple sites
CPT/HCPCS: 77080

== ENCOUNTER 2020-08-29 14:32 | Outpatient (REF) | payer MEDICARE, OTHER, SELFPAY ==
[2020-08-29 17:55] LABS: HCT 45.7 % (36.0-46.0); HGB 14.7 g/dL (11.2-15.7); MCHC 32.2 % (32.0-36.0); MCV 96.4 fL (80-95); MPV 11.4 fL (8.0-11.0); Platelet Count 151 10^3/uL (130-400); RBC 4.74 10^6/uL (3.93-5.22); RDW 13.4 % (11.7-14.6); RDW-SD 47.9 fL; WBC 12.52 10^3/uL (4.4-10.8)
[2020-08-29 18:10] LABS: ALT 36 U/L (14-59); AST 13 U/L (15-37); Albumin 3.5 g/dL (3.4-5.0); Alkaline Phosphatase 75 U/L (46-116); Anion Gap 10.9 mmol/L (3-11); BUN 28 mg/dL (7-18); Bilirubin, Total 0.5 mg/dL (0.2-1.0); CO2 22.1 mmol/L (21.0-32.0); CREATININE 0.85 mg/dL (0.55-1.02); Calcium 8.9 mg/dL (8.5-10.1); Chloride 105 mmol/L (98-107); Glucose 96 mg/dL (74-106); Potassium 4.3 mmol/L (3.5-5.1); Sodium 138 mmol/L (136-145); Total Protein 6.6 g/dL (6.4-8.2)
[2020-08-29 18:13] LABS: C-Reactive Protein < 0.05 mg/dL (0.0-0.3)
[2020-08-29 18:52] LABS: ESR 12 mm/hr (0-30)
== END 2020-08-29 14:52 ==
LOC: NCHCN 14:32
PROVIDERS: PCP Family Medicine; Visit Provider Family Medicine
DX: Z79.52 Long term (current) use of systemic steroids (principal); R73.03 Prediabetes; I10 Essential (primary) hypertension
CPT/HCPCS: 80053; 85027; 85652; 86140

== ENCOUNTER 2020-09-19 19:38 | Outpatient (REF) | payer MEDICARE, OTHER, SELFPAY ==
[2020-09-21 17:16] LABS: COVID-19 RT-PCR UVMMC Result Negative (Negative)
== END 2020-09-19 19:58 ==
LOC: NCHCN 19:38
PROVIDERS: PCP Family Medicine; Visit Provider Nurse Practitioner Family
DX: Z20.822 Contact with and (suspected) exposure to COVID-19 (principal)
CPT/HCPCS: U0003

== ENCOUNTER 2020-10-13 14:59 | Outpatient (REF) | payer MEDICARE, OTHER, SELFPAY ==
[2020-10-13 17:57] LABS: HCT 42.5 % (36.0-46.0); HGB 13.6 g/dL (11.2-15.7); MCH 31.3 pg (27.0-33.0); MCV 97.7 fL (80-95); MPV 11.3 fL (8.0-11.0); Platelet Count 180 10^3/uL (130-400); RBC 4.35 10^6/uL (3.93-5.22); RDW-SD 50.8 fL; WBC 7.42 10^3/uL (4.4-10.8)
[2020-10-13 18:03] LABS: C-Reactive Protein 0.12 mg/dL (0.0-0.3)
[2020-10-14 07:12] LABS: ESR 27 mm/hr (<or=30)
== END 2020-10-13 15:00 | disposition home or self-care (01) ==
LOC: NCHCN 14:59
PROVIDERS: PCP Family Medicine; Visit Provider Family Medicine
DX: I10 Essential (primary) hypertension (principal); F19.20 Other psychoactive substance dependence, uncomplicated
CPT/HCPCS: 85027; 85652; 86140

== ENCOUNTER 2020-10-31 19:37 | Outpatient (REF) | payer MEDICARE, OTHER, SELFPAY | END 2020-10-31 19:38 | disposition home or self-care (01) | LOC: NCHCN 19:37 | PROVIDERS: PCP Family Medicine; Visit Provider Nurse Practitioner Family | DX: R30.0 Dysuria (principal) | CPT/HCPCS: 87077; 87086; 87186 ==

== ENCOUNTER 2020-11-14 18:19 | Outpatient (REF) | payer MEDICARE, OTHER, SELFPAY ==
[2020-11-14 18:34] LABS: Bilirubin Negative (Negative); Blood Small (Negative); Clarity Clear (Clear); Glucose Negative (Negative); Ketones Negative (Negative); Leukocyte Esterase Negative (Negative); Nitrite Negative (Negative); Specific Gravity 1.025 (1.005-1.025); Urobilinogen 0.2 EU/dL (Up TO 0.2); pH 6.5 (5-8)
[2020-11-14 18:41] LABS: Bacteria Negative HPF (Negative); C & S Indicated? No; Casts Negative LPF (Negative); Crystals Negative HPF (Negative); Epithelial Cells Rare HPF (Negative); Mucus Negative (Negative); RBC 0-2 HPF (0-2); WBC 0-2 HPF (0-5)
== END 2020-11-14 18:20 | disposition home or self-care (01) ==
LOC: NCHCN 18:19
PROVIDERS: PCP Family Medicine; Visit Provider Family Medicine
DX: R30.0 Dysuria (principal); R82.998 Other abnormal findings in urine
CPT/HCPCS: 81003; 81015

== ENCOUNTER 2020-11-28 15:57 | Outpatient (REF) | payer MEDICARE, OTHER, SELFPAY | END 2020-11-28 15:58 | disposition home or self-care (01) | LOC: NCHCN 15:57 | PROVIDERS: PCP Family Medicine; Visit Provider Family Medicine | DX: N30.00 Acute cystitis without hematuria (principal) | CPT/HCPCS: 87480; 87510; 87660 ==

== ENCOUNTER 2020-12-06 02:06 | Outpatient (CLI) | payer MEDICARE, OTHER, SELFPAY ==
--- NOTE | 2020-12-06 14:40 | DI.MAMMO_ITS ---
EXAM: MG MAMMO DIAGNOSTIC UNI CLINICAL HISTORY: DIAGNOSTIC, 6 MO F/U MAMMO, TECHNIQUE: Mammograms were interpreted according to the usual protocol including computer analysis w [employer] CAD system, tomosynthesis and C-view imaging. COMPARISON: MG MG MAMMO SCREEN CALL BACK UNI from 05/26/2020 MG MG MAMMO SCREEN CALL BACK UNI from 05/26/2020 FINDINGS: This is a six-month follow-up of the left breast. The breasts are composed of scattered fibroglandular densities, Breast Density category B. No suspicious masses or suspicious microcalcifications are seen. Biopsy marker clips are again noted in the medial left breast. No skin thickening or abnormal axillary lymph nodes are seen. There has been no significant change from prior exams. IMPRESSION: BI-RADS Category 1, Negative mammogram Yearly screening mammography is recommended. Breast Density - Category B, scattered fibroglandular densities. A negative radiographic report should not delay biopsy if a dominant or clinically suspicious mass is present. Up to ten percent of cancers are not identified on mammography. A negative report may reinforce clinical impression. Adenosis and dense breasts may obscure an underlying neoplasm. False positive reports average 6 to 10%. Patient will receive a letter notifying them of these results.
== END 2020-12-06 02:26 ==
PROVIDERS: PCP Family Medicine; Visit Provider Family Medicine
DX: Z12.31 Encounter for screening mammogram for malignant neoplasm of breast (principal); R92.8 Other abnormal and inconclusive findings on diagnostic imaging of breast; N64.89 Other specified disorders of breast
CPT/HCPCS: 77061; 77065; G0279

== ENCOUNTER 2020-12-08 16:49 | Outpatient (REF) | payer MEDICARE, OTHER, SELFPAY ==
[2020-12-08 16:49] LABS: Bilirubin Negative (Negative); Blood Negative (Negative); Clarity Clear (Clear); Glucose Negative (Negative); Ketones Negative (Negative); Leukocyte Esterase Negative (Negative); Nitrite Negative (Negative); Specific Gravity 1.025 (1.005-1.025); Urobilinogen 0.2 EU/dL (Up TO 0.2)
--- OUTSIDE RECORDS SUMMARY | 2020-12-08 16:51 | XMS_ITS ---
:1950 Author Care Team Providers Name Role Phone ULISES VELEZ Primary Care Provider [phone] DIOGO MARTÍNEZ MD Internal Medicine [phone] [facility] MEDICAL RECORDS OTHER [phone] [facility]HE[facility]OLOG[facility] Internal Medicine [phone] [facility] [phone] Allergies Code Code System Name Reaction Severity Status Onset Penicillins ? ? Active ? 78992 RxNorm Tetracycline ? ? Active ? Medications Name Status Start Date Stop Date ? ? amlodipine 5 mg tablet Active ? Not avail able azithromycin 250 mg tablet Completed ? 04/18 chlorthalidone 25 mg tablet Completed ? 04/02 citalopram 40 mg tablet Completed ? 04/18/20 Eliquis 5 mg tablet Completed ? 07/13/2020 Take 1 tablet twice a day by oral route. fluticasone 250 mcg-salmeterol 50 Active ? Not available mcg/dose blistr powdr for inhalation hydroxyzine HCl 25 mg tablet Active ? Not available Klor-Con Sprinkle 10 mEq Completed ? 018 capsule,extended release levofloxacin 500 mg tablet Active ? Not a vailable methylprednisolone 4 mg tablets in Active ? Not available a dose pack metoprolol succinate ER 25 mg Active ? No t available tablet,extended release 24 hr modafinil 200 mg tablet Completed 12/18/2012 04/17/20 13 1 tab Tablet: qd - daily pantoprazole 40 mg tablet,delayed Active ? Not available release prednisone 10 mg tablet Completed ? 04/18/20 20 prednisone 20 mg tablet Completed ? 02/12/20 18 prednisone 5 mg tablet Active ? Not avail able Requip 1 mg tablet Completed 02/10/2013 12/20/2016 1 Tablet: 1 hour before bedtime simvastatin 20 mg tablet Active ? Not jess ilable trazodone 50 mg tablet Active ? Not avail able Ventolin HFA 90 mcg/actuation Active ? No t available aerosol inhaler Xarelto 2.5 mg tablet Active ? Not availa ble Take 1 tablet every day by oral route. Problems Name Status Onset Date Source ? Pulmonary Embolism Active 2020 ? Hyperlipidemia Active ? History Obstructive Sleep Apnea Syndrome Active ? History Periodic Limb Movement Disorder Active ? History Restless Legs Active ? History Hypertensive Disorder Active ? History Arthropathy Active ? History Osteoporosis Active ? History Procedures None recorded. Results Lab Results None recorded. Past Encounters 07/13/2020 Obstructive Sleep Apnea Syndrome; Period ic Limb Movement Disorder Paulina Fofana IT ACCOUNT MANAGER: [address] [place] [phone], Ph. 04/18/2020 Obstructive Sleep Apnea Syndrome; Period ic Limb Movement Disorder Paulina Fofana IT ACCOUNT MANAGER: [address] [place] [id number], Ph. Social History Tobacco Smoking Status Former Smoker Notes: quit sm oking 19+years ago Vaccine List None recorded. Plan of Care Reminders Provider Appointments None ? ? recorded. Lab None ? ? recorded. Referral None ? ? recorded. Procedures None ? ? recorded. Surgeries None ? ? recorded. Imaging None ? ? recorded. Vitals 07/13/2020 10:45AM Office 30 Height Weight BMI Blood Pressure 160.02 cm 82.55 kg 32.2 kg/m2 148/67 mm[Hg] 04/18/2020 09:00AM Office 30 Height Weight BMI Blood Pressure 160.02 cm 81.19 kg 31.7 kg/m2 130/70 mm[Hg] 05/05/2019 11:00AM Office 30 Height Weight BMI Blood Pressure 160.02 cm 98.97 kg 38.7 kg/m2 108/68 mm[Hg] 02/11/2018 09:30AM Office 30 Height Weight BMI Blood Pressure 160.02 cm 98.88 kg 38.6 kg/m2 128/68 mm[Hg] 11/21/2017 Height Weight 160.02 cm 100.7 kg 11/21/2017 Blood Pressure 134/72 mm[Hg] 01/29/2017 Height Weight 160.02 cm 101.41 kg 01/29/2017 Blood Pressure 110/62 mm[Hg] 12/20/2016 Height Weight 160.02 cm 100.42 kg 12/20/2016 Blood Pressure 114/74 mm[Hg] 04/28/2013 Blood Pressure 120/80 mm[Hg] 04/28/2013 Height Weight 160.02 cm 98.43 kg 01/14/2013 Blood Pressure 142/80 mm[Hg] 01/14/2013 Height Weight 160.02 cm 96.16 kg 12/05/2012 Blood Pressure 118/70 mm[Hg] 12/05/2012 Height Weight 160.02 cm 96.62 kg 10/17/2012 Height Weight 160.02 cm 97.13 kg 10/17/2012 Blood Pressure 122/72 mm[Hg] 08/08/2012 Blood Pressure 128/82 mm[Hg] 08/08/2012 Height Weight 160.02 cm 92.99 kg
== END 2020-12-08 16:50 | disposition home or self-care (01) ==
LOC: NCHCN 16:49
PROVIDERS: PCP Family Medicine; Visit Provider Family Medicine
DX: N30.00 Acute cystitis without hematuria (principal)
CPT/HCPCS: 81003; 87086

== ENCOUNTER 2020-12-19 10:03 | Emergency (ER) | payer MEDICARE, OTHER, SELFPAY ==
[2020-12-19 10:15] VITALS: BP 178/63; PULSE 74; RESP 18; TEMP 36.8; O2SAT 98
[2020-12-19 10:50] LABS: Abs Immature Grans 0.08 10^3/uL (0.0-0.06); Absolute Basophil Count 0.04 10^3/uL (0.0-0.2); Absolute Lymphocyte Count 1.49 10^3/uL (1.2-3.4); Absolute Monocyte Count 0.88 10^3/uL (0.1-0.8); Absolute Neutrophil Count 4.25 10^3/uL (1.2-6.7); Basophils % 0.6; HCT 41.3 % (36.0-46.0); HGB 13.6 g/dL (11.2-15.7); Immature Grans % 1.2; Lactate 1.1 mmol/L (0.6-1.4); Lymphocytes % 22.1; MCH 31.7 pg (27.0-33.0); MCHC 32.9 % (32.0-36.0); MCV 96.3 fL (80-95); MPV 10.6 fL (8.0-11.0); Monocytes % 13.1; Nucleated RBC 0 %; Platelet Count 193 10^3/uL (130-400); RBC 4.29 10^6/uL (3.93-5.22); RDW 13.6 % (11.7-14.6); RDW-SD 48.3 fL; WBC 6.74 10^3/uL (4.4-10.8)
[2020-12-19 11:07] LABS: ALT 60 U/L (14-59); AST 28 U/L (15-37); Albumin 3.7 g/dL (3.4-5.0); Alkaline Phosphatase 74 U/L (46-116); Anion Gap 13.1 mmol/L (3-11); BUN 19 mg/dL (7-18); Bilirubin, Total 0.6 mg/dL (0.2-1.0); CO2 23.9 mmol/L (21.0-32.0); CREATININE 0.8 mg/dL (0.55-1.02); Calcium 9.2 mg/dL (8.5-10.1); Chloride 105 mmol/L (98-107); Glucose 85 mg/dL (74-106); Potassium 3.6 mmol/L (3.5-5.1); Sodium 142 mmol/L (136-145); Total Protein 7.2 g/dL (6.4-8.2)
[2020-12-19 11:46] VITALS: BP 162/73; PULSE 68; RESP 20; TEMP 36.9; O2SAT 99
[2020-12-19] MEDS: Clindamycin 150 MG CAP 450 MG PO (11:50)
[2020-12-19 12:02] VITALS: BP 162/73; PULSE 68; RESP 20; TEMP 36.9; O2SAT 99
--- NOTE | 2020-12-19 16:13 | ED.GENADUL_ITS ---
Discharge Plan Disposition Patient Disposition: HOME Condition: Stable Discharge Details Clinical Impression: Cellulitis Primary Care Provider: Anat Vicente ED Provider: Queenie Calderon Home Meds and New Rx's Prescriptions: New clindamycin HCl 150 mg capsule 450 mg PO TID Qty: 63 RF: 0 Continued trazodone 50 mg tablet See Rx Instructions .ROUTE .COMPLEX PRNRF: 0 ipratropium-albuterol 0.5 mg-3 mg(2.5 mg base)/3 mL solution for nebulization 3 ml IH Q8H PRNRF: 0 (DME) Oxygen Tank See Rx Instructions .ROUTE .MEDSUPPLY Qty: 1 RF: 0 metoprolol succinate 50 MG tablet extended release 24 hr 25 mg PO DAILY Qty: 90 RF: 3 simvastatin 40 MG tablet 20 mg PO QPM Qty: 90 RF: 0 acetaminophen [Tylenol] 325 MG tablet 650 mg PO Q6H PRN PRNRF: 0 calcium carbonate-vitamin D3 [Os-Tony 500 + D3] 1 EACH tablet 1 ea PO BID RF: 0 prednisone 1 mg tablet 2 mg PO DAILY RF: 0 vit D3-folic [id number] 2,000-800-0.32 unit-mcg-mg Tablet 1 tab PO RF: 0 Xarelto 20 mg tablet 20 mg PO HS RF: 0 aspirin [Aspir-Low] 81 mg Tablet,Delayed Release (Dr/Ec) 81 mg PO DAILY RF: 0 citalopram 40 mg tablet 40 mg PO DAILY RF: 0 pantoprazole 40 mg tablet,delayed release (DR/EC) 40 mg PO DAILY RF: 0 hydroxyzine HCl 25 mg tablet 25 mg PO BID RF: 0 albuterol sulfate 90 mcg/actuation HFA aerosol inhaler 1 puff INHALATION Q6H PRN PRNRF: 0 hydromorphone 2 mg Tablet 2 mg PO Q4H PRN PRNQty: 12 RF: 0 Eliquis 5 mg Tablet 10 mg PO BID Qty: 14 RF: 0 Eliquis 5 mg Tablet 5 mg PO BID Qty: 60 RF: 0 Discharge Instructions Instructions: Clindamycin (By mouth), Diphtheria/Acellular Pertussis/Tetanus Booster Vaccine (By injection), Cellulitis (ED) Additional Instructions: Please return immediately to the emergency department if you develop any new or worsening symptoms, if your condition does not improve as expected, or if you become otherwise concerned. It is extremely important that you call soon as possible to make an appointment to be seen in follow-up for this visit by your primary care doctor. Referrals: Anat Vicente MD [Primary Care Provider] - Discharge Data Discharge Date/Time-TO BE ENTERED AT DEPARTURE: 12/19/20 12:01 Medical Decision Making Tena Nickerson is a 70-year-old woman who presented to the emergency department with abrasion to left elbow from dog scratch 12/15, subsequently developed redness and swelling around the area which has now significantly improved. On exam patient is very well-known to appearing. There is faint erythema surrounding the abrasion and over the lateral elbow without edema, tenderness, warmth. Patient is ranging elbow fully without pain. Concern for cellulitis. Exam/history at this time is not consistent with abscess, septic arthritis, myositis, sepsis, compartment syndrome. Plan for antibiotics, will treat with clindamycin given patient's allergy history. I had a lengthy discussion with Patient regarding return to emergency department precautions, home care, and importance of outpatient follow-up. Pt verbalizes understanding of the plan and is amenable. Patient discharged to home with clear plan for outpatient follow- up. All questions were answered. Disposition decision was made weighing the risks and benefits of hospitalization versus outpatient treatment, the risk for further decompensation, and the patient's wishes. Medical Records Medical records reviewed: Yes I reviewed the patient's medical records. HPI General Mode of arrival: ambulatory . Date/Time Provider Initiated Documentation: 12/19/20 10:04 . Limitations to Documentation: no limitations . Information obtained by: patient, RN notes reviewed and old records reviewed . HPI Narrative: Tena Nickerson is a 70-year-old woman with a history of peripheral artery disease, pulmonary embolism, polymyalgia rheumatica, hypertension, sleep apnea, GERD, hyperlipidemia presenting to emergency room with skin wound and rash. Patient reports that on 12/15/2020 her dog scratched her left upper arm just above the elbow. Patient reports that her dog is fully vaccinated. Patient states that she developed redness and swelling around the left elbow. Patient reports that she took ibuprofen, and redness and swelling decreased significantly. Patient reports that she has very mild pain in the area of erythema but was concerned that redness has not fully resolved and thus presented to the emergency department. Patient reports that she is able to range her left elbow fully without pain. She denies any other pain, fevers, vomiting, diarrhea, numbness, weakness, other skin wounds, other skin rash. Patient reports that she has been eating and drinking as usual. Feels otherwise in her baseline state of health. Related Data Home Medications Medication Instructions Recorded Confirmed metoprolol succinate 25 mg PO DAILY #90 tab 12/01/12 12/19/20 simvastatin 20 mg PO QPM #90 tab 03/11/13 12/19/20 acetaminophen [Tylenol] 650 mg PO Q6H PRN PRN tab-cap 11/23/14 12/19/20 calcium carbonate-vitamin D3 1 ea PO BID 11/23/14 12/19/20 [Os-Tony 500 + D3] ipratropium 0.5 mg-albuterol 3 mg 3 ml IH Q8H PRN 09/30/18 12/19/20 (2.5 mg base)/3 mL nebulization soln prednisone 1 mg tablet 2 mg PO DAILY tab 09/30/18 04/08/20 trazodone 50 mg tablet See Rx Instructions .ROUTE 09/30/18 12/19/20 .COMPLEX PRN aspirin [Aspir-Low] 81 mg PO DAILY 12/01/18 12/19/20 Oxygen #1 each 05/01/19 05/01/19 vit D3-folic [id number] 1 tab PO 05/12/19 albuterol sulfate 1 puff INHALATION Q6H PRN PRN 04/08/20 12/19/20 citalopram 40 mg PO DAILY 04/08/20 12/19/20 hydroxyzine HCl 25 mg PO BID 04/08/20 12/19/20 pantoprazole 40 mg PO DAILY 04/08/20 12/19/20 Eliquis 5 mg PO BID #60 tab 04/11/20 Eliquis 10 mg PO BID #14 tab 04/11/20 hydromorphone 2 mg PO Q4H PRN PRN #12 tab 04/11/20 12/19/20 Xarelto 20 mg PO HS 12/19/20 12/19/20 clindamycin HCl 450 mg PO TID #63 cap 12/19/20 Previous Rx's Medication Instructions Recorded Eliquis 5 mg PO BID #60 tab 08/10/20 Eliquis 10 mg PO BID #14 tab 04/11/20 hydromorphone 2 mg PO Q4H PRN PRN #12 tab 04/11/20 clindamycin HCl 450 mg PO TID #63 cap 12/19/20 Allergies Allergy/AdvReac Type Severity Reaction Status Date / Time clarithromycin Allergy Severe HIVES Verified 04/08/20 09:48 Penicillins Allergy Severe HIVES Verified 04/08/20 09:48 tetracycline Allergy Severe HIVES, Verified 04/08/20 09:48 HALLUCINATIONS eszopiclone [Eszopiclone] Allergy Unknown pt unsure Verified 04/08/20 09:48 of reaction telithromycin [Telithromycin] Allergy Unknown pt unsure Verified 04/08/20 09:48 raloxifene HCl [From Evista] AdvReac Intermediate BODY ACHES Verified 04/08/20 09:48 sulfamethoxazole AdvReac Intermediate HEADACHE,VO Verified 04/08/20 09:48 [From Bactrim] MITING trimethoprim [From Bactrim] AdvReac Intermediate HEADACHE,VO Verified 04/08/20 09:48 MITING alendronate sodium AdvReac Mild BODY ACHE Verified 04/08/20 09:48 codeine AdvReac Mild GI UPSET Verified 04/08/20 09:48 risedronate sodium AdvReac Mild BODY ACHES Verified 04/08/20 09:48 [From Actonel] Bisphosphonates AdvReac Unknown achy joints Verified 04/08/20 09:48 hydrocodone [Hydrocodone] AdvReac Unknown vomitting Verified 04/08/20 09:48 Macrolide Antibiotics AdvReac Unknown vomitting Verified 04/08/20 09:48 and hallucinations morphine AdvReac Unknown pt. felt Verified 04/08/20 09:48 like she was floating, states she thinks she got to Sulfa (Sulfonamide AdvReac Other (See Unverified 12/19/20 10:21 Antibiotics) Comment) General Stated Complaint: Cellulitis TENA: 3 Review of Systems Narrative: Constitutional: denies fevers Eyes: denies eye pain ENT: denies ear pain, dental pain, sore throat Cardiovascular: denies chest pain, edema Respiratory: denies SOB, cough GI: denies abdominal pain, vomiting, diarrhea : denies flank pain MSK: denies back pain, neck pain, arthralgias, myalgias Skin: Reports rash as per HPI Neuro: denies headaches, numbness, weakness [facility] Medical History (Updated 12/19/20 @ 11:42 by Queenie Calderon MD) Abnormal colonoscopy (11/11/15) 11/11/15 Dr Brizuela, sessile serrated adenoma, repeat 3 years. mg Adenomatous colon polyp 11/11/15 Dr Brizuela, sessile serrated adenoma, repeat 3 years. mg Allergic rhinitis, unspecified (12/10/12) Anxiety and depression Benign essential hypertension Benign paroxysmal vertigo (10/12/11) Chest pain Diverticulosis 05/12/[address] Mariela Arizmendi, [facility] (degenerative joint disease) Esophageal reflux (12/10/12) EGD 05/25/13 KD: mild antritis and distal esophagitis; int metaplasia, no dysplasia GERD (gastroesophageal reflux disease) Head pain Hyperlipemia Hypertension Leukoplakia of oral cavity Lumbago (12/10/12) Midline cystocele (12/10/12) pt. unsure Neoplasm of unspecified behavior of bone, soft tissue, and skin Obesity Obstructive sleep apnea (adult) (pediatric) (01/19/13) severe, Dr. Greer, on auto Bi-Level bipap Osteoarthritis Polymyalgia rheumatica Pulmonary nodule Restless legs (01/19/13) Dr. Greer Sensorineural hearing loss, bilateral (06/03/14) Serrated polyp of colon (11/11/15) Sleep apnea Temporal arteritis Tinnitus (06/03/14) Vaginal discharge (11/23/14) Vertigo (06/03/14) Surgical History Bilateral salpingectomy with oophorectomy (~12/2006) History of cardiac cath Hx of colonoscopy Hysterectomy, Laproscopic Family History Sister Cancer Father Heart disease Mother Heart disease Brother Heart disease Social History Smoking/Tobacco Use Status: Former Tobacco Use Quit Date: 09/02/99 Smoking risk assessment performed?: Yes Alcohol Intake: current Alcohol Intake frequency: a few times a week Alcohol type: wine Drug use: Never Substance use type: does not use Details: alcohol: t-30, pt states she stopped drinking Do you feel safe at home: Yes Do you feel safe in your relationship?: Yes Exam Narrative Exam Narrative: Constitutional: well and [id number], pleasant, conversing normally HENT: head atraumatic/normocephalic/normal inspection, mucous membranes moist Eyes: conjunctiva normal, sclera normal, pupils 3mm b/l Neck: no stridor, normal ROM, trachea midline Resp: normal work of breathing, speaking in full sentences Cardio: normal rate, normal rhythm Skin: warm, dry, normal color, left lateral upper arm with healing abrasion just proximal to the elbow, faint erythema surrounding abrasion and over lateral elbow, not circumferential, no edema, not hot to touch Neuro: alert, not altered, grossly non-focal, normal tone Ext: no edema, ranging left shoulder, elbow, and wrist fully without pain, radial pulses intact and symmetric, normal motor and sensation of the left upper extremity Psych: normal mood, normal affect, normal behavior Course Vital Signs Vital signs: Vital Signs Temperature 36.8 C 12/19/20 10:15 Pulse 74 12/19/20 10:15 Respiratory Rate 18 12/19/20 10:15 Blood Pressure 178/63 H 12/19/20 10:15 Pulse Oximetry 98 12/19/20 10:15 Temperature 36.9 C 12/19/20 12:02 Temperature Source Skin 12/19/20 11:46 Pulse 68 12/19/20 12:02 Respiratory Rate 20 12/19/20 12:02 Respiratory Effort Non-Labored 12/19/20 10:26 Blood Pressure 162/73 H 12/19/20 12:02 Blood Pressure Position Sitting 12/19/20 10:15 Pulse Oximetry 99 12/19/20 12:02 Oxygen Delivery Method Room Air 12/19/20 11:46 Oxygen Flow Rate 0 12/19/20 11:46 Pain Level 0 12/19/20 12:02 Lab/Test Results Lab/Test Results: 12/19/20 11:10 Blood Blood Culture - Pending 12/19/20 10:21 Blood Blood Culture - Pending Laboratory Tests Range/Units 12/19/20 12/19/20 12/19/20 10:39 10:39 10:39 WBC (4.4-10.8) 10^3/uL 6.74 RBC (3.93-5.22) 10^6/uL 4.29 Hgb (11.2-15.7) g/dL 13.6 Hct (36.0-46.0) % 41.3 MCV (80-95) fL 96.3 H MCH (27.0-33.0) pg 31.7 MCHC (32.0-36.0) % 32.9 RDW (11.7-14.6) % 13.6 Plt Count (130-400) 10^3/uL 193 MPV (8.0-11.0) fL 10.6 Immature Gran % 1.2 Neutrophils % 63.0 Lymphocytes % 22.1 Monocytes % 13.1 Eosinophils % 0.0 Basophils % 0.6 Nucleated RBC % % 0 Absolute Neutrophils (1.2-6.7) 10^3/uL 4.25 Absolute Lymphocytes (1.2-3.4) 10^3/uL 1.49 Absolute Monocytes (0.1-0.8) 10^3/uL 0.88 H Absolute Eosinophils (0.0-0.7) 10^3/uL 0.00 Absolute Basophils (0.0-0.2) 10^3/uL 0.04 VBG Lactate (0.6-1.4) mmol/L 1.1 Sodium (136-145) mmol/L 142 Potassium (3.5-5.1) mmol/L 3.6 Chloride (98-107) mmol/L 105 Carbon Dioxide (21.0-32.0) mmol/L 23.9 Anion Gap (3-11) mmol/L 13.1 H BUN (7-18) mg/dL 19 H Creatinine (0.55-1.02) mg/dL 0.8 Estimated GFR/1.73 m2 (mL/min/1.73m2) >= 60.00 Glucose (74-106) mg/dL 85 Calcium (8.5-10.1) mg/dL 9.2 Total Bilirubin (0.2-1.0) mg/dL 0.6 AST (15-37) U/L 28 ALT (14-59) U/L 60 H Alkaline Phosphatase (46-116) U/L 74 Total Protein (6.4-8.2) g/dL 7.2 Albumin (3.4-5.0) g/dL 3.7
== END 2020-12-19 12:01 | disposition home or self-care (01) ==
PROVIDERS: Emergency Provider Student in an Organized Health Care Education/Training Program; PCP Family Medicine
DX: S50.312A Abrasion of left elbow, initial encounter (principal); W54.8XXA Other contact with dog, initial encounter; L03.114 Cellulitis of left upper limb
CPT/HCPCS: 36415; 80053; 87040; 90471; 99284; 83605; 85025

== ENCOUNTER 2021-01-26 11:18 | Emergency (ER) | payer MEDICARE, OTHER, SELFPAY ==
[2021-01-26] VITALS (24 sets, daily range): BP systolic 120–176; BP diastolic 50–77; PULSE 65–89; RESP 13–27; TEMP 36.3–36.4; O2SAT 90–100
--- NOTE | 2021-01-26 11:15 | RT.EKG_ITS ---
APPROVED REPORT Exam: Resting ECG Reason for Exam: sob Patient Location: E HR:68 bpm ECG Measurements Heart Rate 68 AXIS OK 73 P -46 QRSd 94 QRS 37 QT 436 T 18 QTc 464 Conclusion Sinus or ectopic atrial rhythm...P axis (-45,135) Borderline ST depression, anterolateral leads...ST <-0.07mV, I aVL V2-V6. Less than 1mm ST depression seen in anterolateral leads which was seen in previous ekgs. I have reviewed and interpreted ECG and agree with software generated interpretation. No STEMI.
--- NOTE | 2021-01-26 11:28 | W.ED.GENAD ---
Discharge Plan Disposition Patient Disposition: HOME Condition: Improving Discharge Details Clinical Impression: Vertigo, Nausea and vomiting Primary Care Provider: Anat Vicente ED Provider: Luanne Encarnacion Home Meds and New Rx's Prescriptions: New meclizine 12.5 mg tablet 12.5 mg PO TID PRN (Reason: dizziness) Qty: 14 RF: 0 promethazine 25 mg tablet 25 mg PO TID PRN (Reason: nausea and vomiting) Qty: 7 RF: 0 Continued trazodone 50 mg tablet See Rx Instructions .ROUTE .COMPLEX PRNRF: 0 ipratropium-albuterol 0.5 mg-3 mg(2.5 mg base)/3 mL solution for nebulization 3 ml IH Q8H PRNRF: 0 (DME) Oxygen Tank See Rx Instructions .ROUTE .MEDSUPPLY Qty: 1 RF: 0 simvastatin 40 MG tablet 40 mg PO QPM Qty: 90 RF: 0 acetaminophen [Tylenol] 325 MG tablet 650 mg PO Q6H PRN PRNRF: 0 prednisone 1 mg tablet 3 mg PO DAILY RF: 0 Xarelto 20 mg tablet 10 mg PO HS RF: 0 aspirin [Aspir-Low] 81 mg Tablet,Delayed Release (Dr/Ec) 81 mg PO DAILY RF: 0 citalopram 40 mg tablet 40 mg PO DAILY RF: 0 pantoprazole 40 mg tablet,delayed release (DR/EC) 40 mg PO DAILY RF: 0 hydroxyzine HCl 25 mg tablet 25 mg PO BID PRNRF: 0 albuterol sulfate 90 mcg/actuation HFA aerosol inhaler 1 puff INHALATION Q6H PRN PRNRF: 0 chlorthalidone 25 mg tablet 25 mg PO DAILY RF: 0 amlodipine 5 mg tablet 5 mg PO DAILY RF: 0 Discharge Instructions Instructions: Vertigo (ED), Acute Nausea and Vomiting (ED), Benign Paroxysmal Positional Vertigo (ED) Additional Instructions: Drink plenty of fluids and get plenty of rest. Take the promethazine as needed and directed for nausea and vomiting. Take the meclizine as needed] for dizziness. Your prescriptions have been sent electronically to your pharmacy. Call the pharmacy to make sure your prescriptions are ready before pickup. Take the prescriptions as directed. Follow-up with your primary care doctor in 1 week. Return to the emergency department with any worsening or new concerning symptoms. Discharge Data Discharge Date/Time-TO BE ENTERED AT DEPARTURE: 01/26/21 16:11 Discharge Physician: Luanne Encarnacion Medical Decision Making 1130 -- 70-year-old female with a history of pulmonary embolism on Xarelto, GERD, sleep apnea presents for dizziness and nausea and vomiting since last night. EKG notes a rate of 68, sinus, borderline ST depression in anterior lateral leads seen in previous EKG, no STEMI, nondiagnostic. She does admit to some chest heaviness since last night but denies any chest pain at present. She denies any abdominal pain but she had right upper quadrant, epigastrium and left upper quadrant tenderness. Her blood pressure is mildly hypertensive. She appears nontoxic without focal deficits but does have horizontal nystagmus which makes her dizziness and nausea worse with head and eye movement. Suspect BPPV. Also consider acute GI etiology including gastroenteritis, cholelithiasis, cholecystitis. Considering patient's age and history, also consider ACS, CVA, PE, electrolyte abnormality, arrhythmia. Will place an IV, bolus IV fluids, meclizine, Phenergan, Tylenol and GI cocktail and check screening labs, CT head and CT chest and gallbladder ultrasound. Labs and imaging reviewed. Normal white blood cell count. Potassium 3.1, will replete. Normal LFTs and bilirubin. Normal lipase. Troponin negative. CT head negative. CT chest notes scarring right apex but no evidence of PE. Patient reassessed and she feels much better. She is quite sleepy after medication but denies any dizziness or nausea. Plan is for repeat troponin and EKG at 230. Patient to go to ultrasound. 1510 --repeat troponin negative. Repeat EKG unchanged. Abdomen ultrasound negative for cholecystitis. Patient reassessed again and she remains much improved. Patient feels good to go home. She will take sips of water. Discussed that her symptoms could be due to BPPV. Prescriptions for meclizine and promethazine sent to her pharmacy. Advised to follow up with the primary care doctor for re-evaluation. Usual and customary return precautions given prior to discharge. Medical Records Medical records reviewed: Yes I reviewed the patient's medical records. Imaging Data Radiologic Study: Radiologist's impression: CT HEAD WO CLINICAL HISTORY: ? dizziness, nausea, vomiting. ? TECHNIQUE:? Imaging Protocol: Axial computed tomography images with coronal and sagittal reformatted images were created and reviewed FINDINGS: ?There are no skull fractures nor fluid in the visualized paranasal sinuses. There is no evidence of intracranial hemorrhage, mass effect, or shift of midline structures.? There are no extra-axial fluid collections.? The ventricles are not enlarged or shifted and there is no blood within the ventricular system nor within the basal cisterns. There is some periventricular hypodensity consistent with chronic small vessel disease.? No obvious acute infarct.? Amount of involutional changes consistent with this patient's age. IMPRESSION: No acute intracranial findings on this noninfused CT scan of the brain. Chronic small-vessel white matter periventricular ischemic changes. If clinically indicated follow-up MRI can be performed. CT CHEST PE CTA CLINICAL HISTORY: ? shortness of breath, dizzy, n/v. ? TECHNIQUE:? Imaging Protocol: CT angiography of the chest was performed using pulmonary embolus protocol.? Multi planar reconstructions were performed. CONTRAST MATERIAL:? Intravenous: Omnipaque 350 Contrast volume: 100 cc COMPARISON:? CT CT ABD AORTA CTA W RUNOFF from 04/10/2020 FINDINGS: CHEST: PULMONARY ARTERIES: There are no intraluminal filling defects to suggest acute pulmonary emboli. LUNGS: Asymmetric density in the right lung apex is probably scarring but will require follow-up.? There is no overlying rib destruction.? Mild subpleural markings are noted laterally in the right lower lobe.? Few small benign bullae are noted towards the lung bases.? There are no pleural effusions.. MEDIASTINUM: There is no hilar nor mediastinal adenopathy. Visualized thyroid unremarkable. CARDIAC: Heart size is upper normal.? There is no pericardial effusion.Caliber of the thoracic aorta is within normal limits.? There is no significant shift of the interventricular septum. PARTIALLY VISUALIZED UPPERMOST ABDOMEN: No obvious findings OSSEOUS: No significant osseous lesions.. IMPRESSION: 1. No evidence of acute pulmonary emboli.? No evidence of pulmonary infarction.No pleural effusions. 2. Asymmetric density in the right lung apex is noted which may just represent asymmetric scarring in the lung apex.? There is no overlying rib destruction.? Nevertheless, recommend repeat CT scan in 6 months to ensure stability. 3. No intrathoracic adenopathy evident. ECG Data Attestation: I personally reviewed and interpreted this ECG (s) as follows: Interpretation: #1 --Rate of 68, sinus, less than [address] depression in the 3 through V6. No STEMI. #2 --Rate of 73, sinus, no acute ST elevation or depression. No STEMI. HPI General Mode of arrival: ambulatory. Date/Time Provider Initiated Documentation: 01/26/21 11:19. Limitations to Documentation: no limitations. Information obtained by: patient and family. HPI Narrative: Patient is a 70-year-old female with a history of pulmonary embolism on Xarelto, vertigo, anxiety, depression, GERD, sleep apnea, obesity presents for dizziness and vomiting since last night. Patient states she had steak and vegetables and approximately 3 hours later was sitting watching TV when she developed dizziness and nausea. She states she felt severe vertigo with spinning sensation and her helped her to the bathroom. Patient states she sat down in the bathroom and vomited approximately 3 times which was food and clear. She states she laid laid down in her bed and was able to sleep in the night waking up intermittently with dizziness. She states she awoke and her symptoms were improved this morning but still has some dizziness and nausea. She does admit to some intermittent chest heaviness and shortness of breath since last night. She states she has had a chronic cough with occasional white sputum and chronic persistent shortness of breath that has been getting worse over the past several months that occurs with exertion. She states she uses an inhaler as needed for what she was told is chronic bronchitis but states she has not been diagnosed with COPD. She is a former smoker. She admits to some mild headache but denies any abdominal pain. Related Data Home Medications Medication Instructions Recorded Confirmed simvastatin 40 mg PO QPM #90 tab 03/11/13 01/26/21 acetaminophen [Tylenol] 650 mg PO Q6H PRN PRN tab-cap 11/23/14 01/26/21 ipratropium 0.5 mg-albuterol 3 mg 3 ml IH Q8H PRN 09/30/18 01/26/21 (2.5 mg base)/3 mL nebulization soln prednisone 1 mg tablet 3 mg PO DAILY tab 09/30/18 01/26/21 trazodone 50 mg tablet See Rx Instructions .ROUTE 09/30/18 01/26/21 .COMPLEX PRN aspirin [Aspir-Low] 81 mg PO DAILY 12/01/18 01/26/21 Oxygen #1 each 05/01/19 05/01/19 albuterol sulfate 1 puff INHALATION Q6H PRN PRN 04/08/20 01/26/21 citalopram 40 mg PO DAILY 04/08/20 01/26/21 hydroxyzine HCl 25 mg PO BID PRN 04/08/20 01/26/21 pantoprazole 40 mg PO DAILY 04/08/20 01/26/21 Xarelto 10 mg PO HS 12/19/20 01/26/21 amlodipine 5 mg PO DAILY 01/26/21 01/26/21 chlorthalidone 25 mg PO DAILY 01/26/21 01/26/21 meclizine 12.5 mg PO TID PRN #14 tab 01/26/21 promethazine 25 mg PO TID PRN #7 tab 01/26/21 Previous Rx's Medication Instructions Recorded meclizine 12.5 mg PO TID PRN #14 tab 01/26/21 promethazine 25 mg PO TID PRN #7 tab 01/26/21 Allergies Allergy/AdvReac Type Severity Reaction Status Date / Time clarithromycin Allergy Severe HIVES Verified 01/26/21 11:31 Penicillins Allergy Severe HIVES Verified 01/26/21 11:31 tetracycline Allergy Severe HIVES, Verified 01/26/21 11:31 HALLUCINATIONS eszopiclone [Eszopiclone] Allergy Unknown pt unsure Verified 01/26/21 11:31 of reaction telithromycin [Telithromycin] Allergy Unknown pt unsure Verified 01/26/21 11:31 raloxifene HCl [From Evista] AdvReac Intermediate BODY ACHES Verified 01/26/21 11:31 sulfamethoxazole AdvReac Intermediate HEADACHE,VO Verified 01/26/21 11:31 [From Bactrim] MITING trimethoprim [From Bactrim] AdvReac Intermediate HEADACHE,VO Verified 01/26/21 11:31 MITING alendronate sodium AdvReac Mild BODY ACHE Verified 01/26/21 11:31 codeine AdvReac Mild GI UPSET Verified 01/26/21 11:31 risedronate sodium AdvReac Mild BODY ACHES Verified 01/26/21 11:31 [From Actonel] Bisphosphonates AdvReac Unknown achy joints Verified 01/26/21 11:31 hydrocodone [Hydrocodone] AdvReac Unknown vomitting Verified 01/26/21 11:31 Macrolide Antibiotics AdvReac Unknown vomitting Verified 01/26/21 11:31 and hallucinations morphine AdvReac Unknown pt. felt Verified 01/26/21 11:31 like she was floating, states she thinks she got to Sulfa (Sulfonamide AdvReac Other (See Unverified 01/26/21 11:31 Antibiotics) Comment) General TENA: 3 Review of Systems All systems reviewed & are unremarkable except as noted in HPI and below Constitutional Constitutional: Reports as per HPI, Denies chills and Denies fever(s) Eyes Eyes: Denies blurry vision ENT Ears, Nose, Mouth, and Throat: Reports dizziness, Denies sore throat and Denies throat swelling Cardiovascular Cardiovascular: Denies chest pain and Denies dyspnea Respiratory Respiratory: Denies cough and Denies dyspnea Gastrointestinal Gastrointestinal: Denies abdominal pain, Denies diarrhea and Reports vomiting Genitourinary Genitourinary: Denies hematuria and Denies dysuria Musculoskeletal Musculoskeletal: Denies back pain and Denies numbness Integumentary/Breasts Skin/Breast: Denies lesions and Denies rash Neurologic Neurologic: Reports dizziness, Denies localized weakness and Denies numbness Allergic/Immunologic Allergic/Immunologic: Denies throat swelling [facility] Medical History (Updated 01/26/21 @ 15:34 by Luanne Encarnacion DO) Abnormal colonoscopy (11/11/15) 11/11/15 Dr Brizuela, sessile serrated adenoma, repeat 3 years. mg Adenomatous colon polyp 11/11/15 Dr Brizuela, sessile serrated adenoma, repeat 3 years. mg Allergic rhinitis, unspecified (12/10/12) Anxiety and depression Benign essential hypertension Benign paroxysmal vertigo (10/12/11) Chest pain Diverticulosis 05/12/[address] Mariela Arizmendi, [facility] DJD (degenerative joint disease) Esophageal reflux (12/10/12) EGD 05/25/13 KD: mild antritis and distal esophagitis; int metaplasia, no dysplasia GERD (gastroesophageal reflux disease) Head pain Hyperlipemia Hypertension Leukoplakia of oral cavity Lumbago (12/10/12) Midline cystocele (12/10/12) pt. unsure Neoplasm of unspecified behavior of bone, soft tissue, and skin Obesity Obstructive sleep apnea (adult) (pediatric) (05/20/13) severe, Dr. Greer, on auto Bi-Level bipap Osteoarthritis Polymyalgia rheumatica Pulmonary nodule Restless legs (01/19/13) Dr. Greer Sensorineural hearing loss, bilateral (06/03/14) Serrated polyp of colon (11/11/15) Sleep apnea Temporal arteritis Tinnitus (06/03/14) Vaginal discharge (11/23/14) Vertigo (06/03/14) Surgical History Bilateral salpingectomy with oophorectomy (~12/2006) History of cardiac cath Hx of colonoscopy Hysterectomy, Laproscopic Family History Sister Cancer Father Heart disease Mother Heart disease Brother Heart disease Social History Smoking/Tobacco Use Status: Former Tobacco Use Quit Date: 09/02/99 Smoking risk assessment performed?: Yes Alcohol Intake: current Alcohol type: wine Drug use: Never Substance use type: does not use Do you feel safe at home: Yes Do you feel safe in your relationship?: Yes Exam Const General: cooperative and no acute distress HENMT Head: normal to inspection Face and sinus: normal facial exam Eyes General: appearance normal, both eyes and all related structures Pupils: PERRL EOM: EOM intact bilaterally and nystagmus Neck Neck: normal visual inspection and No submandibular swelling Lymphatic: no lymphadenopathy noted Chest Chest: normal inspection of the chest and no tenderness Resp Effort & Inspection: normal respiratory effort and able to speak in complete sentences Auscultation: clear to auscultation bilaterally Cardio Rate: regular rate Rhythm: regular rhythm GI Inspection: normal to inspection Palpation: soft, not firm, not rigid and tender in the epigastrum Auscultation: normal bowel sounds Skin General skin exam: no rashes or lesions noted Neuro General: patient alert, patient awake, patient oriented x3, gait normal, moves all extremities, no meningeal signs and no focal motor deficits Cranial Nerves: CN's II-XI intact bilaterally and nystagmus horizontal Cognition: normal cognition Speech: speech normal Motor: muscle tone normal throughout and strength 5/5 throughout Sensory Exam: no sensory deficits noted Extrem General: normal to inspection, full ROM, capillary refill normal, no calf tenderness bilaterally and no edema Psych Appearance: grossly normal Mental Status: mental status grossly normal Speech and Movement: speech and movement normal Affect: normal affect
--- NOTE | 2021-01-26 11:45 | DI.CT_ITS ---
Exam(s) CT HEAD WO EXAM: CT HEAD WO CLINICAL HISTORY: dizziness, nausea, vomiting. TECHNIQUE: Imaging Protocol: Axial computed tomography images with coronal and sagittal reformatted images were created and reviewed FINDINGS: There are no skull fractures nor fluid in the visualized paranasal sinuses. There is no evidence of intracranial hemorrhage, mass effect, or shift of midline structures. There are no extra-axial fluid collections. The ventricles are not enlarged or shifted and there is no blo od within the ventricular system nor within the basal cisterns. There is some periventricular hypodensity consistent with chronic small vessel disease. No obvious a cute infarct. Amount of involutional changes consistent with this patient's age. IMPRESSION: No acute intracranial findings on this noninfused CT scan of the brain. Chronic small-vessel white matter periventricular ischemic changes. If clinically indicated follow-up MRI can be performed RADIATION DOSE DELIVERED: 727.19mGy.cm Total DLP DATA REPOSITORY: All CT scans at this facility are submitted to the National Radiology Data Registry (NRDR) Dose Index Registry (DIR) with the [employer] ([employer]). RADIATION OPTIMIZATION: All CT scans at this facility use at least one of these dose optimization te chniques: automated exposure control; mA and/or kV adjustment per patient size (includes targeted exa ms where dose is matched to clinical indication); or iterative reconstruction.
--- NOTE | 2021-01-26 11:45 | DI.CT_ITS ---
Exam(s) CT CHEST PE CTA EXAM: CT CHEST PE CTA CLINICAL HISTORY: shortness of breath, dizzy, n/v. TECHNIQUE: Imaging Protocol: CT angiography of the chest was performed using pulmonary embolus mark col. Multi planar reconstructions were performed. CONTRAST MATERIAL: Intravenous: Omnipaque 350 Contrast volume: 100 cc COMPARISON: CT CT ABD AORTA CTA W RUNOFF from 04/10/2020 FINDINGS: CHEST: PULMONARY ARTERIES: There are no intraluminal filling defects to suggest acute pulmonary emboli. LUNGS: Asymmetric density in the right lung apex is probably scarring but will require follow-up. Th ere is no overlying rib destruction. Mild subpleural markings are noted laterally in the right lower lobe. Few small benign bullae are noted towards the lung bases. There are no pleural effusions.. MEDIASTINUM: There is no hilar nor mediastinal adenopathy. Visualized thyroid unremarkable. CARDIAC: Heart size is upper normal. There is no pericardial effusion.Caliber of the thoracic aorta is within normal limits. There is no significant shift of the interventricular septum. PARTIALLY VISUALIZED UPPERMOST ABDOMEN: No obvious findings OSSEOUS: No significant osseous lesions.. IMPRESSION: 1. No evidence of acute pulmonary emboli. No evidence of pulmonary infarction.No pleural effusions. 2. Asymmetric density in the right lung apex is noted which may just represent asymmetric scarring in the lung apex. There is no overlying rib destruction. Nevertheless, recommend repeat CT scan in 6 months to ensure stability. 3. No intrathoracic adenopathy evident. RADIATION DOSE DELIVERED: 315.46mGy.cm Total DLP DATA REPOSITORY: All CT scans at this facility are submitted to the National Radiology Data Registry (NRDR) Dose Index Registry (DIR) with the [employer] (ACR). RADIATION OPTIMIZATION: All CT scans at this facility use at least one of these dose optimization te chniques: automated exposure control; mA and/or kV adjustment per patient size (includes targeted exa ms where dose is matched to clinical indication); or iterative reconstruction.
[2021-01-26 11:46] LABS: Abs Immature Grans 0.16 10^3/uL (0.0-0.06); HCT 43.9 % (36.0-46.0); HGB 14.8 g/dL (11.2-15.7); Immature Grans % 1.7; MCH 31.5 pg (27.0-33.0); MCHC 33.7 % (32.0-36.0); MCV 93.4 fL (80-95); MPV 11.1 fL (8.0-11.0); Nucleated RBC 0 %; Platelet Count 192 10^3/uL (130-400); RDW 13.2 % (11.7-14.6); RDW-SD 45.3 fL
[2021-01-26 11:56] LABS: INR 1.1 (0.9-1.1); PTT Activated 23.2 sec (21.0-27.5); Prothrombin Time 10.7 sec (9.3-11.0)
[2021-01-26 11:58] LABS: Absolute Lymphocyte Count 1.41 10^3/uL (1.2-3.4); Absolute Monocyte Count 1.41 10^3/uL (0.1-0.8); Atypical Lymphocytes % 3; Bands % 0
[2021-01-26 12:01] LABS: Absolute Eosinophil Count 0.47 10^3/uL (0.0-0.7); Absolute Neutrophil Count 6.11 10^3/uL (1.2-6.7); Diff Comment Manual Differential; RBC Morphology Normal
[2021-01-26 12:04] LABS: ALT 35 U/L (14-59); AST 20 U/L (15-37); Alkaline Phosphatase 93 U/L (46-116); Anion Gap 13.7 mmol/L (3-11); BUN 19 mg/dL (7-18); Bilirubin, Total 0.9 mg/dL (0.2-1.0); CO2 24.3 mmol/L (21.0-32.0); Calcium 9.5 mg/dL (8.5-10.1); Chloride 101 mmol/L (98-107); Estimated GFR 54.66 (mL/min/1.73m2); Glucose 104 mg/dL (74-106); Magnesium 1.9 mg/dL (1.8-2.4); Potassium 3.1 mmol/L (3.5-5.1); Sodium 139 mmol/L (136-145); Total Protein 7.7 g/dL (6.4-8.2)
[2021-01-26 12:13] LABS: Troponin I < 0.05 ng/mL (<0.06)
[2021-01-26] MEDS: Meclizine 25 MG TAB PO (12:16)
[2021-01-26] MEDS: Normal Saline 500 ML IV (12:18)
[2021-01-26] MEDS: ACETAMINOPHEN 1,000 MG/100 ML BTL 400 MG IVPB (12:19)
[2021-01-26 12:22] LABS: Lipase 143 U/L (73-393)
[2021-01-26] MEDS: Potassium Chloride 20 MEQ TABCR 40 MEQ PO (12:29)
[2021-01-26] MEDS: Omnipaque 350 MG/ML 100 ML BTL IJ (12:59)
[2021-01-26] MEDS: Normal Saline - Diluent 50 ML VIAL IV (13:00)
[2021-01-26] MEDS: Normal Saline Flush 10 ML SYR IVP (13:00)
--- NOTE | 2021-01-26 13:00 | RT.EKG_ITS ---
APPROVED REPORT Exam: Resting ECG Reason for Exam: CHEST HEAVINESS, DIZZY Patient Location: E HR:73 bpm ECG Measurements Heart Rate 73 AXIS [place] 206 P 83 QRSd 96 QRS 15 QT 410 T -32 QTc 454 Conclusion Sinus rhythm...normal P axis, V-rate 60- 99 Low voltage, precordial leads...precordial leads <1.0mV. No STEMI. Near resolution of ST depression. I have reviewed and interpreted ECG and agree with software generated interpretation.
--- NOTE | 2021-01-26 14:00 | DI.US_ITS ---
Exam(s) US ABDOMEN LIMITED EXAM: US ABDOMEN LIMITED CLINICAL HISTORY: RUQ us, r/o cholecystitis TECHNIQUE: Ultrasound abdomen performed using standard protocol. COMPARISON: CT scan 01/26/2021 was reviewed FINDINGS: There is no ascites evident. LIVER: There are no hepatic lesions evident nor dilatation of intrahepatic ducts. GALLBLADDER/BILIARY: There are no gallstones. No gallbladder wall edema nor pericholecystic fluid. The common hepatic duct isnot dilated, measuring 2mm at the level of umair hepatis. PANCREAS: There is no evidence of pancreatic mass nor dilatation of the pancreatic duct. RIGHT KIDNEY:No evidence of solid mass, calculus, nor hydronephrosis. No cortical cysts evident. ABDOMINAL AORTA AND IVC: Visualized portions exhibit normal caliber. IMPRESSION: 1. No evidence of cholelithiasis nor dilatation of the biliary tree. 2. No other significant ultrasound findings in the right upper quadrant. 3. There is no ascites. DATA REPOSITORY:
[2021-01-26 15:12] LABS: Troponin I < 0.05 ng/mL (<0.06)
== END 2021-01-26 16:11 | disposition home or self-care (01) ==
PROVIDERS: Emergency Provider Physician Assistant; PCP Family Medicine
DX: R42 Dizziness and giddiness (principal); R11.2 Nausea with vomiting, unspecified
CPT/HCPCS: 36415; 71275; 80053; 83690; 93005; 96361; 96365; 96368; 99285; 70450; 76705; 83735; 84484; 85025; 85610; 85730; 93010; 99284; J0131; J3490

== ENCOUNTER 2021-09-13 15:49 | Outpatient (REF) | payer MEDICARE, OTHER, SELFPAY ==
[2021-09-13 14:46] LABS: Anion Gap 9.9 mmol/L (3-11); BUN 18 mg/dL (7-18); CO2 27.1 mmol/L (21.0-32.0); Calcium 9.2 mg/dL (8.5-10.1); Chloride 101 mmol/L (98-107); Glucose 100 mg/dL (74-106); Potassium 3.1 mmol/L (3.5-5.1); Sodium 138 mmol/L (136-145)
[2021-09-13 14:54] LABS: Hemoglobin A1C 5.7 % (<5.7)
== END 2021-09-13 15:50 | disposition home or self-care (01) ==
LOC: NCHCN 15:49
PROVIDERS: PCP Family Medicine; Visit Provider Family Medicine
DX: R73.03 Prediabetes (principal); I10 Essential (primary) hypertension
CPT/HCPCS: 80048; 83036

== ENCOUNTER 2021-10-20 13:17 | Outpatient (REF) | payer MEDICARE, OTHER, SELFPAY ==
[2021-10-20 15:34] LABS: Anion Gap 10.7 mmol/L (3-11); BUN 17 mg/dL (7-18); CO2 24.3 mmol/L (21.0-32.0); CREATININE 1.1 mg/dL (0.55-1.02); Calcium 8.8 mg/dL (8.5-10.1); Chloride 105 mmol/L (98-107); Estimated GFR 48.82 (mL/min/1.73m2); Glucose 106 mg/dL (74-106); Potassium 4.7 mmol/L (3.5-5.1); Sodium 140 mmol/L (136-145)
== END 2021-10-20 13:18 | disposition home or self-care (01) ==
LOC: NCHCN 13:17
PROVIDERS: PCP Family Medicine; Visit Provider Family Medicine
DX: Z47.1 Aftercare following joint replacement surgery (principal)
CPT/HCPCS: 80048

== ENCOUNTER 2021-10-21 16:21 | Emergency (ER) | payer MEDICARE, OTHER, SELFPAY ==
[2021-10-21 16:27] VITALS: BP 133/74; PULSE 73; RESP 18; TEMP 36.6; O2SAT 97
--- NOTE | 2021-10-21 16:53 | ED.GENADUL_ITS ---
Discharge Plan Disposition Patient Disposition: HOME Condition: Stable Discharge Details Clinical Impression: Hematoma of left thigh Primary Care Provider: Anat Vicente ED Provider: Tejal Dean Home Meds and New Rx's Prescriptions: Continued trazodone 50 mg tablet See Rx Instructions .ROUTE .COMPLEX PRN0RF Rx Instructions: 1-4 tabs po hs ipratropium-albuterol 0.5 mg-3 mg(2.5 mg base)/3 mL solution for nebulization 3 ml IH Q8H PRN0RF (DME) Oxygen Tank See Rx Instructions .ROUTE .MEDSUPPLY Qty: 1 0RF Rx Instructions: Bipap machine at night simvastatin 40 MG tablet 40 mg PO QPM Qty: 90 0RF Rx Instructions: to lower cholesterol acetaminophen [Tylenol] 325 MG tablet 650 mg PO Q6H PRN PRN0RF prednisone 1 mg tablet 5 mg PO DAILY 0RF Xarelto 20 mg tablet 10 mg PO HS 0RF citalopram 40 mg tablet 40 mg PO DAILY 0RF pantoprazole 40 mg tablet,delayed release (DR/EC) 40 mg PO DAILY 0RF hydroxyzine HCl 25 mg tablet 25 mg PO BID PRN0RF albuterol sulfate 90 mcg/actuation HFA aerosol inhaler 1 puff INHALATION Q6H PRN PRN0RF chlorthalidone 25 mg tablet 25 mg PO DAILY 0RF amlodipine 5 mg tablet 5 mg PO DAILY 0RF meclizine 12.5 mg tablet 12.5 mg PO TID PRN (Reason: dizziness) Qty: 14 0RF promethazine 25 mg tablet 25 mg PO TID PRN (Reason: nausea and vomiting) Qty: 7 0RF Discharge Instructions Instructions: Hematoma (ED) Additional Instructions: Wear the compressive bandage daily as tolerated. You may apply light heat to the area. Continue to apply ice to your knee as previously instructed. Please be seen sooner either here or with your position classification specialist for any increasing redness, fever or chills, worsening pain or any other concerns. Follow up with primary care provider/ Orthopedics in 3-5 days. Return to ED sooner if any worsening or concerns. Increase oral fluids. Referrals: Anat Vicente MD [Primary Care Provider] - [address] [ NON-[facility] STAFF PHYSICIAN] - Medical Decision Making 71-year-old female presents to the ER chief complaint of left lower extremity erythema. Patient reports she noticed the redness for the last couple of days. She is status post a total knee replacement on October 17, 2021 at [facility] by Dr. St. There is ecchymosis and erythema which extends up almost to her left inner groin. The area was marked by [employer] operations staff officer upon arrival. Is not significantly warm or tender. There is also bruising noted to her left lower calf. No significant drainage or redness noted to the area of the incision. Range of motion is as to be expected. Patient reports that she has home health that has come and is currently doing some physical therapy and some exercises. She is taking oxycodone for pain. Labs ordered to rule out infectious process. Venous Doppler ordered. We do not have US capabilities at this time. Labs do not show any indication of infectious process. 1750: [facility] transfer center called to consult with Orthopedic surgery. Patient had surgery by Dr. St. 1958: Transfer center called again to get update: They are dealing with 6-8 trauma patients so call back may be delayed. 2009: Spoke with Dr. Swain, I was able to email him images of the patient's leg. He was able to personally view them. He does not suspect DVT at this point he reports that it looks more ecchymotic and likely hematoma. He recommends a compressive bandage and applying heat. He states that it will probably change color with healing and if anything gets worse she does recommend follow-up with their office or to return to the ER. I will discuss this with the patient and plan for discharge. Patient verbalized understanding is in agreement with the plan. Carlos bandage was applied by [employer] operations staff officer prior to discharge and discussed strict return instructions. This text was generated using [employer] system, please disregard any oddities of phrase or misspellings. Lab Data Lab results reviewed: Yes I reviewed the patient's lab results. Lab results narrative: 10/21/21 17:55 Blood Blood Culture - Pending 10/21/21 17:20 Blood Blood Culture - Pending Laboratory Tests Range/Units 10/21/21 10/21/21 10/21/21 17:20 17:20 17:20 WBC (4.4-10.8) 10^3/uL 8.93 RBC (3.93-5.22) 10^6/uL 3.93 Hgb (11.2-15.7) g/dL 12.1 Hct (36.0-46.0) % 37.8 MCV (80-95) fL 96.2 H MCH (27.0-33.0) pg 30.8 MCHC (32.0-36.0) % 32.0 RDW (11.7-14.6) % 13.7 Plt Count (130-400) 10^3/uL 194 MPV (8.0-11.0) fL 10.6 Immature Gran % 1.9 Neutrophils % 78.4 Lymphocytes % 10.1 Monocytes % 8.8 Eosinophils % 0.0 Basophils % 0.8 Nucleated RBC % % 0 Absolute Neutrophils (1.2-6.7) 10^3/uL 7.00 H Absolute Lymphocytes (1.2-3.4) 10^3/uL 0.90 L Absolute Monocytes (0.1-0.8) 10^3/uL 0.79 Absolute Eosinophils (0.0-0.7) 10^3/uL 0.00 Absolute Basophils (0.0-0.2) 10^3/uL 0.07 PT (9.3-11.0) sec INR (0.9-1.1) VBG Lactate (0.6-1.4) mmol/L 1.2 Sodium (136-145) mmol/L 136 Potassium (3.5-5.1) mmol/L 4.2 Chloride (98-107) mmol/L 103 Carbon Dioxide (21.0-32.0) mmol/L 24.6 Anion Gap (3-11) mmol/L 8.4 BUN (7-18) mg/dL 16 Creatinine (0.55-1.02) mg/dL 0.8 Estimated GFR/1.73 m2 (mL/min/1.73m2) >= 60.00 Glucose (74-106) mg/dL 120 H Calcium (8.5-10.1) mg/dL 8.9 Magnesium (1.8-2.4) mg/dL 2.1 Total Bilirubin (0.2-1.0) mg/dL 0.8 AST (15-37) U/L 23 ALT (14-59) U/L 18 Alkaline Phosphatase (46-116) U/L 56 Total Protein (6.4-8.2) g/dL 7.2 Albumin (3.4-5.0) g/dL 3.2 L Range/Units 10/21/21 17:20 WBC (4.4-10.8) 10^3/uL RBC (3.93-5.22) 10^6/uL Hgb (11.2-15.7) g/dL Hct (36.0-46.0) % MCV (80-95) fL MCH (27.0-33.0) pg MCHC (32.0-36.0) % RDW (11.7-14.6) % Plt Count (130-400) 10^3/uL MPV (8.0-11.0) fL Immature Gran % Neutrophils % Lymphocytes % Monocytes % Eosinophils % Basophils % Nucleated RBC % % Absolute Neutrophils (1.2-6.7) 10^3/uL Absolute Lymphocytes (1.2-3.4) 10^3/uL Absolute Monocytes (0.1-0.8) 10^3/uL Absolute Eosinophils (0.0-0.7) 10^3/uL Absolute Basophils (0.0-0.2) 10^3/uL PT (9.3-11.0) sec 10.6 INR (0.9-1.1) 1.1 VBG Lactate (0.6-1.4) mmol/L Sodium (136-145) mmol/L Potassium (3.5-5.1) mmol/L Chloride (98-107) mmol/L Carbon Dioxide (21.0-32.0) mmol/L Anion Gap (3-11) mmol/L BUN (7-18) mg/dL Creatinine (0.55-1.02) mg/dL Estimated GFR/1.73 m2 (mL/min/1.73m2) Glucose (74-106) mg/dL Calcium (8.5-10.1) mg/dL Magnesium (1.8-2.4) mg/dL Total Bilirubin (0.2-1.0) mg/dL AST (15-37) U/L ALT (14-59) U/L Alkaline Phosphatase (46-116) U/L Total Protein (6.4-8.2) g/dL Albumin (3.4-5.0) g/dL HPI General Mode of arrival: ambulatory . Date/Time Provider Initiated Documentation: 10/21/21 16:43 . Limitations to Documentation: no limitations . Information obtained by: patient, RN notes reviewed and old records reviewed . HPI Narrative: 71-year-old female presents to the ER chief complaint of left lower extremity erythema. Patient reports she noticed the redness for the last couple of days. She is status post a total knee replacement on October 17, 2021 at [facility] by Dr. St. There is ecchymosis and erythema which extends up almost to her left inner groin. The area was marked by [employer] operations staff officer upon arrival. Is not significa ntly warm or tender. There is also bruising noted to her left lower calf. No significant drainage or redness noted to the area of the incision. Range of motion is as to be expected. Patient reports that she has home health that has come and is currently doing some physical therapy and some exercises. She is taking oxycodone for pain. Related Data Home Medications Medication Instructions Recorded Confirmed simvastatin 40 mg tablet 40 mg PO QPM #90 tab 03/11/13 10/21/21 acetaminophen 325 mg tablet 650 mg PO Q6H PRN PRN tab-cap 11/23/14 10/21/21 (Tylenol) ipratropium 0.5 mg-albuterol 3 mg 3 ml IH Q8H PRN 09/30/18 10/21/21 (2.5 mg base)/3 mL nebulization soln prednisone 1 mg tablet 5 mg PO DAILY tab 09/30/18 10/21/21 trazodone 50 mg tablet See Rx Instructions .ROUTE 09/30/18 10/21/21 .COMPLEX PRN Oxygen #1 each 05/01/19 05/01/19 albuterol sulfate 90 mcg/actuation 1 puff INHALATION Q6H PRN PRN 04/08/20 10/21/21 aerosol inhaler citalopram 40 mg tablet 40 mg PO DAILY 04/08/20 10/21/21 hydroxyzine HCl 25 mg tablet 25 mg PO BID PRN 04/08/20 10/21/21 pantoprazole 40 mg tablet,delayed 40 mg PO DAILY 04/08/20 10/21/21 release rivaroxaban 20 mg tablet (Xarelto) 10 mg PO HS 12/19/20 10/21/21 amlodipine 5 mg tablet 5 mg PO DAILY 01/26/21 10/21/21 chlorthalidone 25 mg tablet 25 mg PO DAILY 01/26/21 10/21/21 meclizine 12.5 mg tablet 12.5 mg PO TID PRN #14 tab 01/26/21 10/21/21 promethazine 25 mg tablet 25 mg PO TID PRN #7 tab 01/26/21 10/21/21 Previous Rx's Medication Instructions Recorded meclizine 12.5 mg tablet 12.5 mg PO TID PRN #14 tab 01/26/21 promethazine 25 mg tablet 25 mg PO TID PRN #7 tab 01/26/21 Allergies Allergy/AdvReac Type Severity Reaction Status Date / Time clarithromycin Allergy Severe HIVES Verified 10/21/21 16:34 Penicillins Allergy Severe HIVES Verified 10/21/21 16:34 tetracycline Allergy Severe HIVES, Verified 10/21/21 16:34 HALLUCINATIONS eszopiclone [Eszopiclone] Allergy Unknown pt unsure Verified 10/21/21 16:34 of reaction telithromycin [Telithromycin] Allergy Unknown pt unsure Verified 10/21/21 16:34 raloxifene HCl [From Evista] AdvReac Intermediate BODY ACHES Verified 10/21/21 16:34 sulfamethoxazole AdvReac Intermediate HEADACHE,VO Verified 10/21/21 16:34 [From Bactrim] MITING trimethoprim [From Bactrim] AdvReac Intermediate HEADACHE,VO Verified 10/21/21 16:34 MITING alendronate sodium AdvReac Mild BODY ACHE Verified 10/21/21 16:34 codeine AdvReac Mild GI UPSET Verified 10/21/21 16:34 risedronate sodium AdvReac Mild BODY ACHES Verified 10/21/21 16:34 [From Actonel] Bisphosphonates AdvReac Unknown achy joints Verified 10/21/21 16:34 hydrocodone [Hydrocodone] AdvReac Unknown vomitting Verified 10/21/21 16:34 Macrolide Antibiotics AdvReac Unknown vomitting Verified 10/21/21 16:34 and hallucinations morphine AdvReac Unknown pt. felt Verified 10/21/21 16:34 like she was floating, states she thinks she got to Sulfa (Sulfonamide AdvReac Other (See Unverified 10/21/21 16:34 Antibiotics) Comment) General Stated Complaint: Cellulitis TENA: 3 Review of Systems All systems reviewed & are unremarkable except as noted in HPI and below Musculoskeletal Musculoskeletal: Reports as per HPI Integumentary/Breasts Skin/Breast: Reports erythema PFSH All Active Problems (Updated 10/21/21 @ 20:21 by Tejal Dean) Hematoma of left thigh (Acute) Cellulitis (Acute) Vertigo (Acute) Nausea and vomiting (Acute) Discharge planning issues (Acute) PAD (peripheral artery disease) (Acute) Orthostasis (Acute) DVT prophylaxis (Acute) Pulmonary embolism (Chronic) Diverticulosis (Acute) Colon polyps (Acute) Polymyalgia rheumatica (Acute 10/12/11) Obesity (Acute 12/10/12) Depressive disorder, not elsewhere classified (Acute 10/12/11) Benign essential hypertension (Acute 04/10/13) Encounter for screening colonoscopy (Acute) Discharge planning issues (Acute) History of colonoscopy (Chronic) Serrated polyp of colon (Acute 11/11/15) Vertigo (Acute 06/03/14) Vaginal discharge (Acute 11/23/14) Tinnitus (Acute 06/03/14) Sensorineural hearing loss, bilateral (Acute 06/03/14) Restless legs (Acute 01/19/13) Dr. Greer Obstructive sleep apnea (adult) (pediatric) (Acute 01/19/13) severe, Dr. Greer, on auto Bi-Level bipap Lumbago (Acute 12/10/12) Esophageal reflux (Acute 12/10/12) EGD 05/25/13 KD: mild antritis and distal esophagitis; int metaplasia, no dysplasia Midline cystocele (Acute 12/10/12) pt. unsure Benign paroxysmal vertigo (Acute 10/12/11) Allergic rhinitis, unspecified (Acute 12/10/12) Chest pain (Acute) Head pain (Acute) Neoplasm of unspecified behavior of bone, soft tissue, and skin (Acute) Leukoplakia of oral cavity (Acute) Polymyalgia rheumatica (Chronic) Anxiety and depression (Chronic) Sleep apnea (Chronic) Benign essential hypertension (Chronic) Temporal arteritis (Acute) Hyperlipemia (Chronic) DJD (degenerative joint disease) (Chronic) Hypertension (Chronic) GERD (gastroesophageal reflux disease) (Chronic) Obesity (Chronic) Osteoarthritis (Chronic) Medical History (Updated 10/21/21 @ 20:21 by Tejal Dean) Abnormal colonoscopy (11/11/15) 11/11/15 Dr Brizuela, sessile serrated adenoma, repeat 3 years. mg Adenomatous colon polyp 11/11/15 Dr Brizuela, sessile serrated adenoma, repeat 3 years. mg Diverticulosis 05/12/[address] Mariela Arizmendi, [facility] Surgical History History of cardiac cath Hx of colonoscopy Family History Sister Cancer Breast cancer Father Heart disease Mother Heart disease Brother Heart disease [place] Social History Smoking/Tobacco Use Status: Former Tobacco Use Quit Date: 09/02/99 Smoking risk assessment performed?: Yes Alcohol Intake: current Alcohol Intake frequency: holidays/special occasions only Alcohol type: wine Drug use: Never Substance use type: does not use Do you feel safe at home: Yes Do you feel safe in your relationship?: Yes Exam Narrative Exam Narrative: Constitutional: Alert and oriented x3. Appears stated age. Overweight body hab itus. Head: Normocephalic, no trauma. Eyes: Pupils PERRL, Red reflex noted, EOM's intact. Eyelids symmetrical without lesions, discharge, or swelling. ENT: Bilateral TM's WNL, External ear normal to inspection, no mastoid TTP, swelling, or erythema, Nasal turbinates WNL, no nasal discharge. Normal dentition, Posterior pharynx WNL, no exudate. Chest: RRR, Normal S1, S2, distal pulses intact. Resp: Lungs clear to auscultation bilaterally, no wheezes, rales, or rhonchi. Abdomen: Soft, non-distended, Normoactive bowel sounds all 4 quads. Musculoskeletal: Normal gait, 5/5 strength to all four extremities. Skin: Capillary refill less than 2 sec. see extremity diagram below. Neurologic: Cranial nerves II-XII intact. Alert and oriented x 3. Motor: No deficits noted. Sensory: Intact bilaterally all 4 extremities. Reflexes: DTR's intact bilaterally.. Hematologic/Lymphatic: No ecchymosis, no lymphadenopathy. Extrem Upper/lower leg/hip images: 1. Erythema 2. Eccymosis/Contusion Course Vital Signs Vital signs: Vital Signs Temperature 36.6 C 10/21/21 16:27 Pulse 73 10/21/21 16:27 Respiratory Rate 18 10/21/21 16:27 Blood Pressure 133/74 10/21/21 16:27 Pulse Oximetry 97 10/21/21 16:27 Temperature 36.6 C 10/21/21 16:27 Temperature Source Temporal Artery Scan 10/21/21 16:27 Pulse 73 10/21/21 16:27 Respiratory Rate 18 10/21/21 16:27 Respiratory Effort Non-Labored 10/21/21 16:32 Blood Pressure 133/74 10/21/21 16:27 Blood Pressure Position Supine 10/21/21 16:27 Pulse Oximetry 97 10/21/21 16:27 Oxygen Delivery Method Room Air 10/21/21 16:27 Oxygen Flow Rate 0 10/21/21 16:27 Pain Level 8 10/21/21 16:27 Lab/Test Results Lab/Test Results: 10/21/21 16:51 Blood Blood Culture - Pending 10/21/21 16:51 Blood Blood Culture - Pending
[2021-10-21 17:26] LABS: Lactate 1.2 mmol/L (0.6-1.4)
[2021-10-21 17:29] LABS: Abs Immature Grans 0.17 10^3/uL (0.0-0.06); Absolute Basophil Count 0.07 10^3/uL (0.0-0.2); Absolute Monocyte Count 0.79 10^3/uL (0.1-0.8); Basophils % 0.8; HCT 37.8 % (36.0-46.0); HGB 12.1 g/dL (11.2-15.7); Immature Grans % 1.9; Lymphocytes % 10.1; MCH 30.8 pg (27.0-33.0); MCV 96.2 fL (80-95); MPV 10.6 fL (8.0-11.0); Monocytes % 8.8; Neutrophils % 78.4; Nucleated RBC 0 %; Platelet Count 194 10^3/uL (130-400); RBC 3.93 10^6/uL (3.93-5.22); RDW 13.7 % (11.7-14.6); RDW-SD 49.1 fL; WBC 8.93 10^3/uL (4.4-10.8)
[2021-10-21 17:36] LABS: INR 1.1 (0.9-1.1); Prothrombin Time 10.6 sec (9.3-11.0)
[2021-10-21 17:45] LABS: ALT 18 U/L (14-59); AST 23 U/L (15-37); Albumin 3.2 g/dL (3.4-5.0); Alkaline Phosphatase 56 U/L (46-116); Anion Gap 8.4 mmol/L (3-11); BUN 16 mg/dL (7-18); Bilirubin, Total 0.8 mg/dL (0.2-1.0); CO2 24.6 mmol/L (21.0-32.0); CREATININE 0.8 mg/dL (0.55-1.02); Calcium 8.9 mg/dL (8.5-10.1); Chloride 103 mmol/L (98-107); Glucose 120 mg/dL (74-106); Magnesium 2.1 mg/dL (1.8-2.4); Potassium 4.2 mmol/L (3.5-5.1); Sodium 136 mmol/L (136-145); Total Protein 7.2 g/dL (6.4-8.2)
[2021-10-21 18:52] VITALS: BP 116/68; PULSE 65; RESP 16; TEMP 36.7; O2SAT 96
[2021-10-21 19:16] VITALS: BP 131/69; PULSE 62; RESP 12; TEMP 36.8; O2SAT 95
[2021-10-21 19:53] VITALS: BP 119/69; PULSE 71; RESP 15; TEMP 36.7; O2SAT 96
[2021-10-21 20:42] VITALS: BP 119/69; PULSE 71; RESP 15; TEMP 36.7; O2SAT 96
== END 2021-10-21 20:43 | disposition home or self-care (01) ==
PROVIDERS: Emergency Provider Registered Nurse Emergency; PCP Family Medicine
DX: L76.32 Postprocedural hematoma of skin and subcutaneous tissue following other procedure (principal); Z96.652 Presence of left artificial knee joint
CPT/HCPCS: 36415; 80053; 87040; 99283; 83605; 83735; 85025; 85610

== ENCOUNTER 2021-12-07 18:17 | Outpatient (REF) | payer MEDICARE, OTHER, SELFPAY ==
[2021-12-07 15:38] LABS: Anion Gap 12.4 mmol/L (3-11); BUN 21 mg/dL (7-18); CO2 23.6 mmol/L (21.0-32.0); CREATININE 0.8 mg/dL (0.55-1.02); Calcium 9.3 mg/dL (8.5-10.1); Chloride 104 mmol/L (98-107); Glucose 99 mg/dL (74-106); Potassium 3.6 mmol/L (3.5-5.1); Sodium 140 mmol/L (136-145)
== END 2021-12-07 18:18 | disposition home or self-care (01) ==
LOC: NCHCN 18:17
PROVIDERS: PCP Family Medicine; Visit Provider Family Medicine
DX: I10 Essential (primary) hypertension (principal); E87.6 Hypokalemia
CPT/HCPCS: 80048

== ENCOUNTER 2021-12-15 09:35 | Outpatient (REF) | payer MEDICARE, OTHER, SELFPAY ==
[2021-12-15 21:20] LABS: Folate 13.3 ng/mL (8.6-20.0); Vitamin B12 242 pg/mL (193-986)
== END 2021-12-15 09:36 | disposition home or self-care (01) ==
LOC: NCHCN 09:35
PROVIDERS: PCP Family Medicine; Visit Provider Family Medicine
DX: D75.89 Other specified diseases of blood and blood-forming organs (principal); R53.83 Other fatigue
CPT/HCPCS: 82607; 82746

== ENCOUNTER 2022-01-10 00:35 | Outpatient (CLI) | payer MEDICARE, OTHER, SELFPAY ==
--- NOTE | 2022-01-10 | DI.MAMMO_ITS ---
Exam(s) MAMMO SCREENING EXAM: MAMMO SCREENING CLINICAL HISTORY: SCREENING, Z12.39 TECHNIQUE: Mammograms were interpreted according to the usual protocol including computer analysis w [employer] CAD system, tomosynthesis and C-view imaging. COMPARISON: 2012 through 2020 FINDINGS: The breasts are composed of scattered fibroglandular densities, Breast Density category B. No suspicious masses or suspicious microcalcifications are seen. No skin thickening or abnormal axillary lymph nodes are seen. Two biopsy marker clips are again note d in the medial left breast. There has been no significant change from prior exams. IMPRESSION: BI-RADS Category 1, Negative mammogram Yearly screening mammography is recommended. Breast Density - Category B, scattered fibroglandular densities. A negative radiographic report should not delay biopsy if a dominant or clinically suspicious mass is present. Up to ten percent of cancers are not identified on mammography. A negative report may reinforce clinical impression. Adenosis and dense breasts may obscure an underlying neoplasm. False positive reports average 6 to 10%. Patient will receive a letter notifying them of these results.
== END 2022-01-10 00:55 ==
PROVIDERS: PCP Family Medicine; Visit Provider Family Medicine
DX: Z12.31 Encounter for screening mammogram for malignant neoplasm of breast (principal)
CPT/HCPCS: 77063; 77067

== ENCOUNTER 2022-01-17 15:26 | Outpatient (REF) | payer MEDICARE, OTHER, SELFPAY ==
[2022-01-17 18:48] LABS: Anion Gap 11.9 mmol/L (3-11); BUN 26 mg/dL (7-18); CO2 28.1 mmol/L (21.0-32.0); Calcium 8.9 mg/dL (8.5-10.1); Chloride 97 mmol/L (98-107); Glucose 104 mg/dL (74-106); Sodium 137 mmol/L (136-145)
[2022-01-17 18:59] LABS: Potassium 2.5 mmol/L (3.5-5.1)
== END 2022-01-17 15:27 | disposition home or self-care (01) ==
LOC: NCHCN 15:26
PROVIDERS: PCP Family Medicine; Visit Provider Family Medicine
DX: R60.0 Localized edema (principal); E87.6 Hypokalemia
CPT/HCPCS: 80048

== ENCOUNTER 2022-01-17 20:05 | Observation (INO) | payer MEDICARE, OTHER, SELFPAY ==
--- NOTE | 2022-01-17 20:15 | RT.EKG_ITS ---
APPROVED REPORT Exam: Resting ECG Reason for Exam: electrolyte imbalance Patient Location: E HR:68 bpm ECG Measurements Heart Rate 68 AXIS MT 219 P 91 QRSd 94 QRS 36 QT 390 T -86 QTc 416 Conclusion Sinus rhythm...normal P axis, V-rate 60- 99 Borderline prolonged MT interval...MT >212, V-rate 50- 90 Low voltage, precordial leads...precordial leads <1.0mV
[2022-01-17 20:18] VITALS: BP 142/62; PULSE 78; RESP 18; TEMP 36.8; O2SAT 98
--- NOTE | 2022-01-17 20:26 | W.ED.GENAD ---
Discharge Plan Disposition Patient Disposition: [facility] INPATIENT Condition: Good Discharge Details Chief Complaint: GenMedical Clinical Impression: Acute hypokalemia Primary Care Provider: Anat Vicente ED Provider: Vicente Sheldon Home Meds and New Rx's Prescriptions: No Action trazodone 50 mg tablet See Rx Instructions .ROUTE .COMPLEX PRN Rx Instructions: 1-4 tabs po hs ipratropium-albuterol 0.5 mg-3 mg(2.5 mg base)/3 mL solution for nebulization 3 ml IH Q8H PRN (DME) Oxygen Tank See Rx Instructions .ROUTE .MEDSUPPLY Qty: 1 Rx Instructions: Bipap machine at night simvastatin 40 MG tablet 40 mg PO QPM Qty: 90 Rx Instructions: to lower cholesterol acetaminophen [Tylenol] 325 MG tablet 650 mg PO Q6H PRN PRN prednisone 1 mg tablet 5 mg PO DAILY Xarelto 20 mg tablet 10 mg PO HS citalopram 40 mg tablet 40 mg PO DAILY pantoprazole 40 mg tablet,delayed release (DR/EC) 40 mg PO DAILY hydroxyzine HCl 25 mg tablet 25 mg PO BID PRN albuterol sulfate 90 mcg/actuation HFA aerosol inhaler 1 puff INHALATION Q6H PRN PRN chlorthalidone 25 mg tablet 25 mg PO DAILY amlodipine 5 mg tablet 5 mg PO DAILY meclizine 12.5 mg tablet 12.5 mg PO TID PRN (Reason: dizziness) Qty: 14 0RF promethazine 25 mg tablet 25 mg PO TID PRN (Reason: nausea and vomiting) Qty: 7 0RF Medical Decision Making <Jesus Manuel Glass MD - Last Filed: 01/17/22 23:24> ekg on arrival nsr no u waves no ischemia after 40mEq od PO K and 10mEq of iv K, her repeat K was 2.4 case d/w Dr Rodrigues - plan is for a second infusion of K as well as PO , repeat labs and the decison for obs admission will be made based on the repeat value <Vicente Sheldon DO - Last Filed: 01/18/22 02:37> ekg on arrival nsr no u waves no ischemia after 40mEq od PO K and 10mEq of iv K, her repeat K was 2.4 case d/w Dr Raser - plan is for a second infusion of K as well as PO , repeat labs and the decison for obs admission will be made based on the repeat value Dr. Sheldon's documentation: Case is signed out to me by my colleague Dr. Glass. Please refer to his physical exam, assessment and plan. At time of signout we are awaiting repeat potassium levels after multiple oral and IV doses of potassium. Repeat potassium has returned, and is still notably low at 2.8. I will order magnesium level, and of note magnesium was already given. I discussed the case with Dr. Villeda, and with the patient's persistently low potassium, I do feel that continued administration so that she is at a more normal/therapeutic level is indicated at this time. She is still symptomatic, and does complain of persistent cramps, and some weakness in the legs. I have extensively reviewed the treatment plan with the patient. I have addressed all patient concerns at this time. I have also discussed the plan with the admitting physician and they agree with the current assessment and plan and have agreed to assume responsibility for the patient. All parties demonstrate verbal understanding and agreement with our assessment and plan at this time. The documentation in this chart was dictated using [employer] dictation software. Please excuse any dictation errors. HPI <Jesus Manuel Glass MD - Last Filed: 01/17/22 23:24> General Date/Time Provider Initiated Documentation: 01/17/22 20:15. HPI Narrative: 71 yo sent to the ED by PCP for evaluation of hypokalemia. The patient is asymptomatic other then some fatigue. Her potassium prescription ran out last week therefore she has not been taking her potassium supplements. she was seen this morning by PCP and had outpt lab work that revealed a k of 2.4 Related Data Home Medications Medication Instructions Recorded Confirmed simvastatin 40 mg tablet 40 mg PO QPM #90 tabs 03/11/13 10/21/21 acetaminophen 325 mg tablet 650 mg PO Q6H PRN PRN 11/23/14 10/21/21 (Tylenol) ipratropium 0.5 mg-albuterol 3 mg 3 ml inhalation Q8H PRN 09/30/18 10/21/21 (2.5 mg base)/3 mL nebulization soln prednisone 1 mg tablet 5 mg PO DAILY 09/30/18 10/21/21 trazodone 50 mg tablet See Rx Instructions .Route 01/29/19 02/19/22 .COMPLEX PRN Oxygen #1 ea 05/01/19 05/01/19 albuterol sulfate 90 mcg/actuation 1 puff inhalation Q6H PRN PRN 04/08/20 10/21/21 aerosol inhaler citalopram 40 mg tablet 40 mg PO DAILY 04/08/20 10/21/21 hydroxyzine HCl 25 mg tablet 25 mg PO BID PRN 04/08/20 10/21/21 pantoprazole 40 mg tablet,delayed 40 mg PO DAILY 04/08/20 10/21/21 release rivaroxaban 20 mg tablet (Xarelto) 10 mg PO HS 12/19/20 10/21/21 amlodipine 5 mg tablet 5 mg PO DAILY 01/26/21 10/21/21 chlorthalidone 25 mg tablet 25 mg PO DAILY 01/26/21 10/21/21 meclizine 12.5 mg tablet 12.5 mg PO TID PRN dizziness #14 01/26/21 10/21/21 tabs promethazine 25 mg tablet 25 mg PO TID PRN nausea and 01/26/21 10/21/21 vomiting #7 tabs Previous Rx's Medication Instructions Recorded meclizine 12.5 mg tablet 12.5 mg PO TID PRN dizziness #14 01/26/21 tabs promethazine 25 mg tablet 25 mg PO TID PRN nausea and 01/26/21 vomiting #7 tabs Allergies Allergy/AdvReac Type Severity Reaction Status Date / Time clarithromycin Allergy Severe HIVES Verified 10/21/21 16:34 Penicillins Allergy Severe HIVES Verified 10/21/21 16:34 tetracycline Allergy Severe HIVES, Verified 10/21/21 16:34 HALLUCINATIONS eszopiclone [Eszopiclone] Allergy Unknown pt unsure Verified 10/21/21 16:34 of reaction telithromycin [Telithromycin] Allergy Unknown pt unsure Verified 10/21/21 16:34 raloxifene HCl [From Evista] AdvReac Intermediate BODY ACHES Verified 10/21/21 16:34 sulfamethoxazole AdvReac Intermediate HEADACHE,VO Verified 10/21/21 16:34 [From Bactrim] MITING trimethoprim [From Bactrim] AdvReac Intermediate HEADACHE,VO Verified 10/21/21 16:34 MITING alendronate sodium AdvReac Mild BODY ACHE Verified 10/21/21 16:34 codeine AdvReac Mild GI UPSET Verified 10/21/21 16:34 risedronate sodium AdvReac Mild BODY ACHES Verified 10/21/21 16:34 [From Actonel] Bisphosphonates AdvReac Unknown achy joints Verified 10/21/21 16:34 hydrocodone [Hydrocodone] AdvReac Unknown vomitting Verified 10/21/21 16:34 Macrolide Antibiotics AdvReac Unknown vomitting Verified 10/21/21 16:34 and hallucinations morphine AdvReac Unknown pt. felt Verified 10/21/21 16:34 like she was floating, states she thinks she got to Sulfa (Sulfonamide AdvReac Other (See Unverified 10/21/21 16:34 Antibiotics) Comment) General Stated Complaint: GenMedical TENA: 2 Review of Systems <Jesus Manuel Glass MD - Last Filed: 01/17/22 23:24> Narrative: Consti - no f /c HEENt eng CV neg Pulm neg GI neg neg MSK neg Skin neg Neuro neg Hemato neg PFSH <Jesus Manuel Glass MD - Last Filed: 01/17/22 23:24> All Active Problems (Updated 01/18/22 @ 02:37 by Vicente Sheldon DO) Acute hypokalemia (Acute) Cellulitis (Acute) Vertigo (Acute) Nausea and vomiting (Acute) Discharge planning issues (Acute) PAD (peripheral artery disease) (Acute) Orthostasis (Acute) DVT prophylaxis (Acute) Pulmonary embolism (Chronic) Diverticulosis (Acute) Colon polyps (Acute) Polymyalgia rheumatica (Acute 10/12/11) Obesity (Acute 12/10/12) Depressive disorder, not elsewhere classified (Acute 10/12/11) Benign essential hypertension (Acute 04/10/13) Encounter for screening colonoscopy (Acute) Discharge planning issues (Acute) History of colonoscopy (Chronic) Serrated polyp of colon (Acute 11/11/15) Vertigo (Acute 06/03/14) Vaginal discharge (Acute 11/23/14) Tinnitus (Acute 06/03/14) Sensorineural hearing loss, bilateral (Acute 06/03/14) Restless legs (Acute 01/19/13) Dr. Greer Obstructive sleep apnea (adult) (pediatric) (Acute 01/19/13) severe, Dr. Greer, on auto Bi-Level bipap Lumbago (Acute 12/10/12) Esophageal reflux (Acute 12/10/12) EGD 05/25/13 KD: mild antritis and distal esophagitis; int metaplasia, no dysplasia Midline cystocele (Acute 12/10/12) pt. unsure Benign paroxysmal vertigo (Acute 10/12/11) Allergic rhinitis, unspecified (Acute 12/10/12) Chest pain (Acute) Head pain (Acute) Neoplasm of unspecified behavior of bone, soft tissue, and skin (Acute) Leukoplakia of oral cavity (Acute) Polymyalgia rheumatica (Chronic) Anxiety and depression (Chronic) Sleep apnea (Chronic) Benign essential hypertension (Chronic) Temporal arteritis (Acute) Hyperlipemia (Chronic) DJD (degenerative joint disease) (Chronic) Hypertension (Chronic) GERD (gastroesophageal reflux disease) (Chronic) Obesity (Chronic) Osteoarthritis (Chronic) Medical History (Updated 01/18/22 @ 02:37 by Vicente Sheldon DO) Abnormal colonoscopy (11/11/15) 11/11/15 Dr Brizuela, sessile serrated adenoma, repeat 3 years. mg Adenomatous colon polyp 11/11/15 Dr Brizuela, sessile serrated adenoma, repeat 3 years. mg Diverticulosis 05/12/[address] Mariela Arizmendi, [facility] Surgical History History of cardiac cath Hx of colonoscopy Family History Sister Cancer Breast cancer Father Heart disease Mother Heart disease Brother Heart disease [place] Social History Smoking/Tobacco Use Status: Former Tobacco Use Quit Date: 09/02/99 Smoking risk assessment performed?: Yes Alcohol Intake: current Alcohol Intake frequency: holidays/special occasions only Alcohol type: wine Drug use: Never Substance use type: does not use Do you feel safe at home: Yes Do you feel safe in your relationship?: Yes Exam <Jesus Manuel Glass MD - Last Filed: 01/17/22 23:24> Narrative Exam Narrative: AAOx3 calm NAD pleasant ccoperatibe ETHEL EOMI MMM supple neck CTAB RRR Abd soft Skin neg Neuro grossly intact ext no edema healed rt knee surg incision Psych normal mood and affect Course <Jesus Manuel Glass MD - Last Filed: 01/17/22 23:24> Vital Signs Vital signs: Vital Signs Temperature 36.8 C 01/17/22 20:18 Pulse 78 01/17/22 20:18 Respiratory Rate 18 01/17/22 20:18 Blood Pressure 142/62 H 01/17/22 20:18 Pulse Oximetry 98 01/17/22 20:18 Temperature 36.8 C 01/17/22 20:18 Pulse 78 01/17/22 20:18 Respiratory Rate 18 01/17/22 20:18 Respiratory Effort Non-Labored 01/17/22 20:23 Blood Pressure 142/62 H 01/17/22 20:18 Blood Pressure Position Supine 01/17/22 20:18 Pulse Oximetry 98 01/17/22 20:18 Oxygen Delivery Method Room Air 01/17/22 20:18 Oxygen Flow Rate 0 01/17/22 20:18 Sign Out <Jesus Manuel Glass MD - Last Filed: 01/17/22 23:24> Sign Out Data: Sign Out Comment: Hypokalemia secondary to noncompliance with potassium supplementation. After Potassium supplementation in the emergency department, her potassium actually dropped. After d/w Dr Rodrigues, it was decided that she would get further potassium supplemenation i the ED and that if she did not respond she would be admitted. Patient, s/o to Dr Pito Medrano updated by Jesus Manuel Glass MD at 01/17/22 23:48
[2022-01-17] MEDS: Potassium Chloride 20 MEQ TABCR 40 MEQ PO ×2 (20:59→23:18)
[2022-01-17] MEDS: POTASSIUM CHLORIDE 10 MEQ/100 ML BAG 100 MEQ IVPB ×2 (20:59→23:19)
[2022-01-17 22:41] LABS: Potassium 2.4 mmol/L (3.5-5.1)
[2022-01-18] VITALS (8 sets, daily range): BP systolic 107–143; BP diastolic 59–91; PULSE 63–74; RESP 15–18; TEMP 36.1–36.8; O2SAT 96–100
[2022-01-18] MEDS: MAGNESIUM SULFATE 1 GM/100 ML BAG IVPB (00:04)
[2022-01-18] MEDS: POTASSIUM CHLORIDE 10 MEQ/100 ML BAG 100 MEQ IVPB (00:12)
[2022-01-18 01:49] LABS: Anion Gap 9.5 mmol/L (3-11); BUN 23 mg/dL (7-18); CO2 26.5 mmol/L (21.0-32.0); CREATININE 1.1 mg/dL (0.55-1.02); Calcium 8.4 mg/dL (8.5-10.1); Chloride 100 mmol/L (98-107); Estimated GFR 48.82 (mL/min/1.73m2); Glucose 103 mg/dL (74-106); Sodium 136 mmol/L (136-145)
[2022-01-18 01:51] LABS: Potassium 2.8 mmol/L (3.5-5.1)
[2022-01-18] MEDS: POTASSIUM CHLORIDE 20 MEQ/100 ML BAG 50 MEQ IVPB (02:31)
[2022-01-18 02:48] LABS: Magnesium 2.6 mg/dL (1.8-2.4)
[2022-01-18 05:09] LABS: Source Nasal/Nares
--- NOTE | 2022-01-18 06:03 | HPE_ITS ---
Date of service: 01/18/22 Time of Service: 04:15 Assessment and Plan Assessment and plan (1) Acute hypokalemia: Status: Acute Assessment and plan: Secondary to increase chlorthalidone and running out of potassium supplement. Will continue to replace IV until above 3 and then orally. Tele monitoring while on IV replacement, then we can stop this. Mg is not low. We discussed cutting back chlorthalidone and adding alternative medication for blood pressure, either SREEDHAR/ARB or spironolactone, see below. (2) Hypertension: Status: Chronic Assessment and plan: Goal with PAD is <130/80. I couldn't find record of ADR to SREEDHAR/ARB though she has many other allergies. Will start low dose losartan along with just 25mg of chlorthalidone and amlodipine. (3) PAD (peripheral artery disease): Status: Acute Assessment and plan: As above re: BP. SHe is also on anticoagulation for h/o PE and statin. Ideally she would be on high intensity statin, and her simvastatin interacts with a mlodipine which can raise the levels, so we should consider changing statins, but will defer to PCP. (4) Polymyalgia rheumatica: Status: Acute Assessment and plan: not active. continue chronic low dose prednisone. (5) Discharge planning issues: Status: Acute Assessment and plan: She should be able to go home today or tomorrow after potassium in a safe range with plan to follow closely in clinic after med changes. History of Present Illness History of Present Illness Chief Complaint: hypokalemia on outpatient labs Narrative: 71 yo female with hypertension, history of PE, peripheral arterial disease, who was called by her primary care office and told to come in because of potassium of 2.5, down from 3.6 on December 07. She denied symptoms other than some mild fatigue. She had low potassium in the past but not this low. She had been taking potassium chloride supplument, but this ran out a week prior to admission. After discussion, she also revealed that her sap business intelligence consultant (cardiology?) from [facility] [place] told her to double her chlorthalidone to 50mg to improve her blood pressure control about 4-6 weeks ago. She was given 10mEq KCl IV and 40mEq po and potassium repeated in the ED was 2.4. She was then given another 20mEq I.V. and 40mEq po and the potassium only went up to 2.8. At this point she was recommended for admission. Review of Systems Constitutional Constitutional: Denies anorexia, Denies chills, Denies fever(s) and Denies weakness Eyes Eyes: Denies change in vision and Denies irritation ENT Ears, Nose, Mouth, and Throat: Denies dizziness, Denies nasal congestion, Denies nasal discharge and Denies sore throat Cardiovascular Cardiovascular: Denies palpitations and Denies orthopnea Respiratory Respiratory: Denies cough, Denies excessive phlegm production and Denies wheezing Gastrointestinal Gastrointestinal: Denies abdominal pain, Denies heartburn and Denies vomiting Comments: no diarrhea or bowel changes. no blood or melena Genitourinary Genitourinary: Denies hematuria, Denies dysuria and Denies urinary incontinence Integumentary/Breasts Skin/Breast: Denies rash and Denies skin ulcer Neurologic Neurologic: Denies dizziness, Denies sensory deficit and Denies weakness Psychiatric Psychiatric: Denies mood swings and Denies panic attacks Endocrine Endocrine: Denies palpitations Hematologic/Lymphatic Hematologic/Lymphatic: Denies easy bleeding Allergic/Immunologic Allergic/Immunologic: Denies wheezing PFSH All Active Problems (Updated 01/18/22 @ 06:16 by Haseeb Rodrigues) Acute hypokalemia (Acute) Cellulitis (Acute) Vertigo (Acute) Nausea and vomiting (Acute) Discharge planning issues (Acute) PAD (peripheral artery disease) (Acute) Orthostasis (Acute) DVT prophylaxis (Acute) Pulmonary embolism (Chronic) Diverticulosis (Acute) Colon polyps (Acute) Polymyalgia rheumatica (Acute 10/12/11) Obesity (Acute 12/10/12) Depressive disorder, not elsewhere classified (Acute 10/12/11) Benign essential hypertension (Acute 04/10/13) Encounter for screening colonoscopy (Acute) Discharge planning issues (Acute) History of colonoscopy (Chronic) Serrated polyp of colon (Acute 11/11/15) Vertigo (Acute 06/03/14) Vaginal discharge (Acute 11/23/14) Tinnitus (Acute 06/03/14) Sensorineural hearing loss, bilateral (Acute 06/03/14) Restless legs (Acute 01/19/13) Dr. Greer Obstructive sleep apnea (adult) (pediatric) (Acute 01/19/13) severe, Dr. Greer, on auto Bi-Level bipap Lumbago (Acute 12/10/12) Esophageal reflux (Acute 12/10/12) EGD 05/25/13 KD: mild antritis and distal esophagitis; int metaplasia, no dysplasia Midline cystocele (Acute 12/10/12) pt. unsure Benign paroxysmal vertigo (Acute 10/12/11) Allergic rhinitis, unspecified (Acute 12/10/12) Head pain (Acute) Neoplasm of unspecified behavior of bone, soft tissue, and skin (Acute) Leukoplakia of oral cavity (Acute) Polymyalgia rheumatica (Chronic) Anxiety and depression (Chronic) Sleep apnea (Chronic) Benign essential hypertension (Chronic) Temporal arteritis (Acute) Hyperlipemia (Chronic) DJD (degenerative joint disease) (Chronic) Hypertension (Chronic) GERD (gastroesophageal reflux disease) (Chronic) Obesity (Chronic) Osteoarthritis (Chronic) Medical History (Updated 01/18/22 @ 06:16 by Haseeb Rodrigues) Abnormal colonoscopy (11/11/15) 11/11/15 Dr Brizuela, sessile serrated adenoma, repeat 3 years. mg Adenomatous colon polyp 11/11/15 Dr Brizuela, sessile serrated adenoma, repeat 3 years. mg Diverticulosis 05/12/[address] Mariela Arizmendi, [facility] Surgical History History of cardiac cath Hx of colonoscopy Family History Sister Cancer Breast cancer Father Heart disease Mother Heart disease Brother Heart disease [place] Social History (Updated 01/18/22 @ 06:12 by Haseeb Rodrigues) Smoking/Tobacco Use Status: Former Tobacco Use Quit Date: 09/02/99 Smoking risk assessment performed?: Yes Alcohol Intake: current Alcohol Intake frequency: 0-2 drinks per day Alcohol type: wine Drug use: Never Substance use type: does not use Do you feel safe at home: Yes Do you feel safe in your relationship?: Yes Additional Social history: Lives with of 55 years in [place]. She has 3 kids who live close. 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 Meds Allergies and Home Medications Allergies Allergy/AdvReac Type Severity Reaction Status Date / Time clarithromycin Allergy Severe HIVES Verified 01/18/22 02:51 Penicillins Allergy Severe HIVES Verified 01/18/22 02:51 tetracycline Allergy Severe HIVES, Verified 01/18/22 02:51 HALLUCINATIONS eszopiclone [Eszopiclone] Allergy Unknown pt unsure Verified 01/18/22 02:51 of reaction telithromycin [Telithromycin] Allergy Unknown pt unsure Verified 01/18/22 02:51 raloxifene HCl [From Evista] AdvReac Intermediate BODY ACHES Verified 01/18/22 02:51 sulfamethoxazole AdvReac Intermediate HEADACHE,VO Verified 01/18/22 02:51 [From Bactrim] MITING trimethoprim [From Bactrim] AdvReac Intermediate HEADACHE,VO Verified 01/18/22 02:51 MITING alendronate sodium AdvReac Mild BODY ACHE Verified 01/18/22 02:51 codeine AdvReac Mild GI UPSET Verified 01/18/22 02:51 risedronate sodium AdvReac Mild BODY ACHES Verified 01/18/22 02:51 [From Actonel] Bisphosphonates AdvReac Unknown achy joints Verified 01/18/22 02:51 hydrocodone [Hydrocodone] AdvReac Unknown vomitting Verified 01/18/22 02:51 Macrolide Antibiotics AdvReac Unknown vomitting Verified 01/18/22 02:51 and hallucinations morphine AdvReac Unknown pt. felt Verified 01/18/22 02:51 like she was floating, states she thinks she got to Sulfa (Sulfonamide AdvReac Other (See Unverified 01/18/22 02:51 Antibiotics) Comment) Home Medications Medication Instructions Recorded Confirmed Type simvastatin 40 mg tablet 40 mg PO QPM #90 tabs 03/11/13 01/18/22 History acetaminophen 325 mg tablet 650 mg PO Q6H PRN PRN 11/23/14 01/18/22 History (Tylenol) ipratropium 0.5 mg-albuterol 3 mg 3 ml inhalation Q8H PRN 09/30/18 01/18/22 History (2.5 mg base)/3 mL nebulization soln prednisone 1 mg tablet 5 mg PO DAILY 09/30/18 01/18/22 History trazodone 50 mg tablet See Rx Instructions .Route 09/30/18 01/18/22 History .COMPLEX PRN Oxygen #1 ea 05/01/19 05/01/19 History albuterol sulfate 90 mcg/actuation 1 puff inhalation Q6H PRN PRN 04/08/20 01/18/22 History aerosol inhaler citalopram 40 mg tablet 40 mg PO DAILY 04/08/20 01/18/22 History hydroxyzine HCl 25 mg tablet 25 mg PO BID PRN 04/08/20 01/18/22 History pantoprazole 40 mg tablet,delayed 40 mg PO DAILY 04/08/20 01/18/22 History release rivaroxaban 20 mg tablet (Xarelto) 10 mg PO HS 12/19/20 01/18/22 History amlodipine 5 mg tablet 5 mg PO DAILY 01/26/21 01/18/22 History chlorthalidone 25 mg tablet 25 mg PO DAILY 01/26/21 01/18/22 History meclizine 12.5 mg tablet 12.5 mg PO TID PRN dizziness #14 01/26/21 01/18/22 Rx tabs promethazine 25 mg tablet 25 mg PO TID PRN nausea and 01/26/21 01/18/22 Rx vomiting #7 tabs Exam Narrative Exam Narrative: GEN: Alert and oriented, very pleasant and cooperative, gives linear history. No acute distress at rest. HEENT: Head atraumatic. Conjunctiva clear, no icterus. PEERL, EOMI. no rhinorrhea. MM a little dry, OP benign. Neck is supple with no masses or lymphadenopathy, trachea midline LUNGS: CTAB with normal effort CV: RRR with no murmurs, gallops, or rubs. ABD: +BS, soft, NT/ND EXT: no cyanosis, clubbing. trace misael LE edema, not tender MSK: No joint redness or swelling NEURO: CN 2-12 grossly intact. Normal movement of 4 extremities. Normal speech and coordination SKIN: No rashs or open wounds. PSYCH: normal mood and affect Results Labs Result diagrams: 01/18/22 01:30 Labs: Laboratory Results - last 24 hr 01/17/22 01/18/22 01/18/22 22:25 01:30 01:30 Sodium 136 Potassium 2.4 L* 2.8 L* Chloride 100 Carbon Dioxide 26.5 Anion Gap 9.5 BUN 23 H Creatinine 1.1 H Estimated GFR/1.73 m2 48.82 Glucose 103 Calcium 8.4 L Magnesium 2.6 H COVID-19 Source 01/18/22 05:05 Sodium Potassium Chloride Carbon Dioxide Anion Gap BUN Creatinine Estimated GFR/1.73 m2 Glucose Calcium Magnesium COVID-19 Source Nasal/Nares Last Vital Signs Temp 36.3 C L 01/18/22 05:27 Pulse 70 01/18/22 05:27 Resp 15 01/18/22 05:27 BP 139/78 01/18/22 05:27 Pulse Ox 100 01/18/22 05:27 PAWSS Have you Been Recently Intoxicated or Drunk Within the Last 30 days?: No Have you Ever Experienced Previous Episodes of Alcohol Withdrawal?: No Have you ever Experienced Withdrawal Seizures?: No Have you ever Experienced Delirium Tremens(DT)s?: No Have you ever undergone Alcohol Rehabilitation Treatment (i.e, inpt ot outpatient treatment programs)?: No Have you ever Experienced Blackouts?: No Have you ever Combined Alcohol with other Downers within the last 90 days?: No Have you ever Combined Alcohol with any other Substance of Abuse during the last 90 days?: No Positive Blood Alcohol level on Presentation? [PCS.BAL]: No Evidence of Increased Autonomic Activity (i.e. HR>120, tremor, sweating, agitation, nausea)?: No Result: 0
[2022-01-18 06:15] LABS: COVID-19 PCR Negative (Negative)
[2022-01-18 06:50] LABS: Anion Gap 7.6 mmol/L (3-11); BUN 22 mg/dL (7-18); CO2 32.4 mmol/L (21.0-32.0); CREATININE 0.9 mg/dL (0.55-1.02); Calcium 8.7 mg/dL (8.5-10.1); Chloride 102 mmol/L (98-107); Glucose 96 mg/dL (74-106); Potassium 4.2 mmol/L (3.5-5.1); Sodium 142 mmol/L (136-145)
[2022-01-18] MEDS: Chlorthalidone 25 MG TAB PO (08:54)
[2022-01-18] MEDS: predniSONE 1 MG TAB 5 MG PO (08:55)
[2022-01-18] MEDS: Citalopram 20 MG TAB 40 MG PO (08:55)
[2022-01-18] MEDS: Potassium Chloride 20 MEQ TABCR PO (08:55)
[2022-01-18] MEDS: Losartan 25 MG TAB PO (08:56)
[2022-01-18] MEDS: amLODIPine 5 MG TAB PO (08:56)
[2022-01-18] MEDS: Pantoprazole 40 MG TABCR PO (08:56)
--- NOTE | 2022-01-18 15:43 | DSE_ITS ---
Date of service: 01/18/22 Time of Service: 14:44 DS: Diagnosis Discharge Diagnosis (1) Acute hypokalemia: Status: Acute Asessment and Plan: Patient presented to hospital with generalized weakness and severe hypokalemia. She was called by her primary care provider regarding her low potassium level and told to present to the emergency department. Hypokalemia developed after her PCP had increased her chlorthalidone dose and told her to double up on her potassium dose however she did not receive a new prescription for the potassium and ran out of her potassium early. Potassium was 2.5 on admission and dropped to as low as 2.4 but after aggressive IV and oral potassium replacement her final level was 4.2 on discharge. Patient will be discharged home on a reduced dose of her chlorthalidone 25 mg daily. She will be discharged home on potassium supplement of 20 mEq twice a day. We will have her get a repeat BMP in a week. If she continues to have problems with low potassium levels her PCP should consider putting her on low-dose spironolactone to prevent hypokalemia from her other diuretic. Patient did not require any home health services upon discharge. She was ambulating independently and able to perform her own ADLs independently. (2) Hypertension: Status: Chronic (3) PAD (peripheral artery disease): Status: Acute (4) Polymyalgia rheumatica: Status: Acute Discharge Plan Disposition Patient Disposition: HOME Condition: Good Discharge Details Reason For Visit: Hypokalemia Admit Date/Time: 01/18/22 04:22 Admit Provider: Haseeb Rodrigues Attending Provider: Haseeb Rodrigues Primary Care Provider: Anat Vicente Home Meds and New Rx's Prescriptions: New chlorthalidone 25 mg Tablet 25 mg PO DAILY Qty: 0 0RF Continued ipratropium-albuterol 0.5 mg-3 mg(2.5 mg base)/3 mL solution for nebulization 3 ml IH Q8H PRN (DME) Oxygen Tank See Rx Instructions .ROUTE .MEDSUPPLY Qty: 1 Rx Instructions: Bipap machine at night acetaminophen [Tylenol] 325 MG tablet 650 mg PO Q6H PRN PRN Xarelto 20 mg tablet 10 mg PO HS atorvastatin 40 mg tablet 40 mg PO DAILY prednisone 5 mg tablet 5 mg PO DAILY Label Comments: TAKE ONE TABLET BY MOUTH EVERY DAY pantoprazole 40 mg tablet,delayed release (DR/EC) 40 mg PO DAILY budesonide-formoterol [Symbicort] 160-4.5 mcg/actuation HFA aerosol inhaler 2 inh INHALATION BID amlodipine 5 mg tablet 10 mg PO DAILY Qty: 0 0RF citalopram 40 mg tablet 40 mg PO DAILY hydroxyzine HCl 25 mg tablet 25 mg PO BID PRN albuterol sulfate 90 mcg/actuation HFA aerosol inhaler 1 puff INHALATION Q6H PRN PRN Changed chlorthalidone 50 mg tablet 25 mg PO DAILY Qty: 0 0RF potassium chloride 20 mEq tablet extended release 20 meq PO BID Qty: 30 0RF Discharge Instructions Instructions: Hypokalemia (DC) Stand Alone Forms: Nursing Discharge Form Referrals: Anat Vicente MD [Primary Care Provider] - 02/01/22 10:00 am Activity:: Activity as Tolerated Equipment/Supplies:: No Equipment Needed Diet:: Normal Diet Discharge Orders Discharge Orders: Discharge Order (Routine); Ordered 01/18/22 Ordered By: Fortino Tinajero Other Ambulatory Orders: Basic Metabolic Panel (Routine) Timeframe: 5 Days Facility: [facility] - Location: Laboratory Outpatient Ordered By: Fortino Tinajero Discharge Data Discharge Date/Time-TO BE ENTERED AT DEPARTURE: 01/18/22 16:35 DS: Summary Time Spent with Patient providing and/or coordinating discharge services: Less than 30 minutes Specific discharge activities: Rx, dc instructions Status at Discharge Functional status at discharge: independent ambulation Overall status at discharge: patient is back to baseline Mental Status: mental status grossly normal Speech and Movement: speech and movement normal Mood: congruent mood Affect: normal affect Exam Narrative Exam Narrative: Elderly for male sitting up in bed alert and oriented person place time circumstance. HEENT is unremarkable. Speech is clear and coherent no dysarthric speech. Lungs are clear to auscultation Heart is regular rate and rhythm Abdomen soft and nontender nondistended. Extremities with normal range of motion and strength. Psych Mental Status: mental status grossly normal Speech and Movement: speech and movement normal Mood: congruent mood Affect: normal affect DS: Data Vitals/I&O Vitals and I&O: Vital Signs Temperature 36.2 C L 01/18/22 11:00 Temperature Source Tympanic 01/18/22 11:00 Pulse 67 01/18/22 14:36 Pulse Rhythm Regular 01/18/22 05:27 Respiratory Rate 16 01/18/22 11:00 Respiratory Effort Non-Labored 01/18/22 08:56 Respiratory Depth Normal 01/18/22 08:56 Respiratory Pattern Normal 01/18/22 08:56 Blood Pressure 107/68 01/18/22 11:00 Blood Pressure Position Supine 01/17/22 20:18 Pulse Oximetry 98 01/18/22 11:00 Oxygen Delivery Method Room Air 01/18/22 11:00 Oxygen Flow Rate 0 01/18/22 11:00 Pain Level 0 01/18/22 11:00 Intake & Output 01/17/22 01/18/22 01/18/22 23:59 11:59 23:59 Intake Total 100 / 100 500 / 620 120 / 620 Balance 100 / 100 500 / 620 120 / 620 Weight 85.275 kg 86.4 kg Intake: IV 100 / 100 300 / 300 Oral 200 / 320 120 / 320 Other: Urine Appearance Clear # Voids 1 Data Completed and Pending Labs on day of discharge: Labs from last 24 hours 01/18/22 01/18/22 01/18/22 05:32 05:05 01:30 Sodium 142 Potassium 4.2 D Chloride 102 Carbon Dioxide 32.4 H Anion Gap 7.6 BUN 22 H Creatinine 0.9 Estimated GFR/1.73 m2 >= 60.00 Glucose 96 Calcium 8.7 Magnesium 2.6 H COVID-19 Source Nasal/Nares SARS-CoV-2 (PCR) Negative 01/18/22 01/17/22 01:30 22:25 Sodium 136 Potassium 2.8 L* 2.4 L* Chloride 100 Carbon Dioxide 26.5 Anion Gap 9.5 BUN 23 H Creatinine 1.1 H Estimated GFR/1.73 m2 48.82 Glucose 103 Calcium 8.4 L Magnesium COVID-19 Source SARS-CoV-2 (PCR) PFSH All Active Problems (Updated 01/19/22 @ 00:04 by MENDEZ AMIN) Hypokalemia (Acute) Acute hypokalemia (Acute) Cellulitis (Acute) Vertigo (Acute) Nausea and vomiting (Acute) Discharge planning issues (Acute) PAD (peripheral artery disease) (Acute) Orthostasis (Acute) DVT prophylaxis (Acute) Pulmonary embolism (Chronic) Diverticulosis (Acute) Colon polyps (Acute) Polymyalgia rheumatica (Acute 10/12/11) Obesity (Acute 12/10/12) Depressive disorder, not elsewhere classified (Acute 10/12/11) Benign essential hypertension (Acute 04/10/13) Encounter for screening colonoscopy (Acute) History of colonoscopy (Chronic) Serrated polyp of colon (Acute 11/11/15) Vertigo (Acute 06/03/14) Vaginal discharge (Acute 11/23/14) Tinnitus (Acute 06/03/14) Sensorineural hearing loss, bilateral (Acute 06/03/14) Restless legs (Acute 01/19/13) Dr. Greer Obstructive sleep apnea (adult) (pediatric) (Acute 01/19/13) severe, Dr. Greer, on auto Bi-Level bipap Lumbago (Acute 12/10/12) Esophageal reflux (Acute 12/10/12) EGD 05/25/13 KD: mild antritis and distal esophagitis; int metaplasia, no dysplasia Midline cystocele (Acute 12/10/12) pt. unsure Benign paroxysmal vertigo (Acute 10/12/11) Allergic rhinitis, unspecified (Acute 12/10/12) Head pain (Acute) Neoplasm of unspecified behavior of bone, soft tissue, and skin (Acute) Leukoplakia of oral cavity (Acute) Polymyalgia rheumatica (Chronic) Anxiety and depression (Chronic) Sleep apnea (Chronic) Benign essential hypertension (Chronic) Temporal arteritis (Acute) Hyperlipemia (Chronic) DJD (degenerative joint disease) (Chronic) Hypertension (Chronic) GERD (gastroesophageal reflux disease) (Chronic) Obesity (Chronic) Osteoarthritis (Chronic) Medical History (Updated 01/19/22 @ 00:04 by MENDEZ AMIN) Abnormal colonoscopy (11/11/15) 11/11/15 Dr Brizuela, sessile serrated adenoma, repeat 3 years. mg Adenomatous colon polyp 11/11/15 Dr Brizuela, sessile serrated adenoma, repeat 3 years. mg Diverticulosis 05/12/[address] Mariela Arizmendi, [facility] Surgical History History of cardiac cath Hx of colonoscopy Family History Sister Cancer Breast cancer Father Heart disease Mother Heart disease Brother Heart disease [place] Social History (Updated 01/18/22 @ 06:12 by Haseeb Rodrigues) Smoking/Tobacco Use Status: Former Tobacco Use Quit Date: 09/02/99 Smoking risk assessment performed?: Yes Alcohol Intake: current Alcohol Intake frequency: 0-2 drinks per day Alcohol type: wine Drug use: Never Substance use type: does not use Do you feel safe at home: Yes Do you feel safe in your relationship?: Yes Additional Social history: Lives with of 55 years in [place]. She has 3 kids who live close. 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
--- NOTE | 2022-01-18 15:56 | CHAPLAIN ---
Tena said she was waiting for more information, but was feeling better. She's been in touch with family. She's being discharged this afternoon.
== END 2022-01-18 16:35 | disposition home or self-care (01) ==
LOC: ER 01-18 05:05 → MS 01-18 05:13
PROVIDERS: Emergency Medicine; Admitting Provider Family Medicine; Emergency Provider Student in an Organized Health Care Education/Training Program; PCP Family Medicine; Visit Provider Family Medicine
DX: E87.6 Hypokalemia (principal); T50.2X5A Adverse effect of carbonic-anhydrase inhibitors, benzothiadiazides and other diuretics, initial encounter; T45.7X6A Underdosing of anticoagulant antagonist, vitamin K and other coagulants, initial encounter; Z91.138 Patient's unintentional underdosing of medication regimen for other reason; I10 Essential (primary) hypertension; I73.9 Peripheral vascular disease, unspecified; R25.2 Cramp and spasm; Z79.01 Long term (current) use of anticoagulants; Z86.711 Personal history of pulmonary embolism; Z20.822 Contact with and (suspected) exposure to COVID-19; E66.9 Obesity, unspecified; Z68.31 Body mass index [BMI] 31.0-31.9, adult; F41.8 Other specified anxiety disorders; G47.33 Obstructive sleep apnea (adult) (pediatric); M54.50 Low back pain, unspecified; K21.9 Gastro-esophageal reflux disease without esophagitis; J30.9 Allergic rhinitis, unspecified; E78.5 Hyperlipidemia, unspecified; Z79.52 Long term (current) use of systemic steroids
CPT/HCPCS: 36415; 80048; 87635; 93005; 96365; 96366; 96367; 99285; 83735; 84132; 93010; 99217; G0378; J3475; J3480

== ENCOUNTER 2022-01-22 11:39 | Outpatient (CLI) | payer MEDICARE, OTHER, SELFPAY ==
[2022-01-22 16:10] LABS: Anion Gap 11.1 mmol/L (3-11); BUN 29 mg/dL (7-18); CO2 27.9 mmol/L (21.0-32.0); CREATININE 1.3 mg/dL (0.55-1.02); Calcium 9.6 mg/dL (8.5-10.1); Chloride 100 mmol/L (98-107); Estimated GFR 40.26 (mL/min/1.73m2); Glucose 101 mg/dL (74-106); Potassium 3.3 mmol/L (3.5-5.1); Sodium 139 mmol/L (136-145)
== END 2022-01-22 11:40 | disposition home or self-care (01) ==
LOC: LBO 11:43
PROVIDERS: PCP Family Medicine; Visit Provider Internal Medicine
DX: E87.6 Hypokalemia (principal); I10 Essential (primary) hypertension; Z51.81 Encounter for therapeutic drug level monitoring
CPT/HCPCS: 36415; 80048

== ENCOUNTER 2022-05-09 17:36 | Outpatient (CLI) | payer MEDICARE, OTHER, SELFPAY ==
[2022-05-09 18:02] LABS: Anion Gap 9.9 mmol/L (3-11); BUN 21 mg/dL (7-18); CO2 24.1 mmol/L (21.0-32.0); CREATININE 0.8 mg/dL (0.55-1.02); Calcium 9.1 mg/dL (8.5-10.1); Chloride 103 mmol/L (98-107); Estimated GFR 77.75 (mL/min/1.73m2); Glucose 106 mg/dL (74-106); NT-proBNP 335 pg/mL (<300); Potassium 4.2 mmol/L (3.5-5.1); Sodium 137 mmol/L (136-145)
== END 2022-05-09 17:37 | disposition home or self-care (01) ==
LOC: LBO 17:37
PROVIDERS: PCP Family Medicine; Visit Provider Nurse Practitioner
DX: R06.09 Other forms of dyspnea (principal); Z51.81 Encounter for therapeutic drug level monitoring
CPT/HCPCS: 36415; 80048; 71046; 83880

== ENCOUNTER 2022-05-18 01:19 | Outpatient (CLI) | payer MEDICARE, OTHER, SELFPAY ==
[2022-05-18 12:43] LABS: Anion Gap 11.3 mmol/L (3-11); BUN 21 mg/dL (7-18); CO2 26.7 mmol/L (21.0-32.0); CREATININE 1.1 mg/dL (0.55-1.02); Calcium 9.4 mg/dL (8.5-10.1); Chloride 100 mmol/L (98-107); Estimated GFR 53.06 (mL/min/1.73m2); Glucose 90 mg/dL (74-106); NT-proBNP 334 pg/mL (<300); Potassium 3.8 mmol/L (3.5-5.1); Sodium 138 mmol/L (136-145)
== END 2022-05-18 01:20 | disposition home or self-care (01) ==
LOC: LOS 01:19
PROVIDERS: PCP Family Medicine; Visit Provider Nurse Practitioner
DX: R06.00 Dyspnea, unspecified (principal); I10 Essential (primary) hypertension; Z51.81 Encounter for therapeutic drug level monitoring
CPT/HCPCS: 36415; 80048; 83880

== ENCOUNTER 2022-07-02 15:29 | Outpatient (REF) | payer MEDICARE, OTHER, SELFPAY ==
[2022-07-02 15:40] LABS: HCT 43.2 % (36.0-46.0); HGB 14.2 g/dL (11.2-15.7); MCH 30.5 pg (27.0-33.0); MCHC 32.9 % (32.0-36.0); MCV 93 fL (80-95); MPV 12.5 fL (8.0-11.0); Platelet Count 144 10^3/uL (130-400); RBC 4.66 10^6/uL (3.93-5.22); RDW 13.6 % (11.7-14.6); WBC 7.45 10^3/uL (4.4-10.8)
[2022-07-02 15:43] LABS: Hemoglobin A1C 5.9 % (<5.7)
[2022-07-02 16:48] LABS: Anion Gap 10.9 mmol/L (3-11); BUN 20 mg/dL (7-18); CO2 26.1 mmol/L (21.0-32.0); CREATININE 0.9 mg/dL (0.55-1.02); Calcium 9.2 mg/dL (8.5-10.1); Chloride 103 mmol/L (98-107); Glucose 92 mg/dL (74-106); Potassium 3.2 mmol/L (3.5-5.1); Sodium 140 mmol/L (136-145); TSH (W/Ref FT4) 1.28 uIU/mL (0.36-3.74); Vitamin B12 388 pg/mL (193-986)
== END 2022-07-02 15:30 | disposition home or self-care (01) ==
LOC: NCHCN 15:29
PROVIDERS: PCP Family Medicine; Visit Provider Family Medicine
DX: I10 Essential (primary) hypertension (principal); E87.6 Hypokalemia; E53.8 Deficiency of other specified B group vitamins; R53.83 Other fatigue; R73.03 Prediabetes
CPT/HCPCS: 80048; 85027; 82607; 83036; 84443

== ENCOUNTER 2022-08-15 02:55 | Outpatient (CLI) | payer MEDICARE, OTHER, SELFPAY ==
[2022-08-15 14:42] LABS: Anion Gap 10.7 mmol/L (3-11); BUN 25 mg/dL (7-18); CO2 26.3 mmol/L (21.0-32.0); Calcium 9.7 mg/dL (8.5-10.1); Chloride 101 mmol/L (98-107); Estimated GFR 59.49 (mL/min/1.73m2); Glucose 92 mg/dL (74-106); Potassium 3.7 mmol/L (3.5-5.1); Sodium 138 mmol/L (136-145)
== END 2022-08-15 02:56 | disposition home or self-care (01) ==
LOC: LBO 02:56
PROVIDERS: PCP Student in an Organized Health Care Education/Training Program; Visit Provider Internal Medicine Cardiovascular Disease
DX: E87.6 Hypokalemia (principal)
CPT/HCPCS: 36415; 80048

== ENCOUNTER 2022-09-12 10:04 | Emergency (ER) | payer MEDICARE, OTHER, SELFPAY ==
[2022-09-12] VITALS (18 sets, daily range): BP systolic 104–154; BP diastolic 58–89; PULSE 58–81; RESP 12–41; TEMP 36.9; O2SAT 98–100
--- NOTE | 2022-09-12 10:15 | RT.EKG_ITS ---
APPROVED REPORT Exam: Resting ECG Reason for Exam: sob Patient Location: E HR:64 bpm ECG Measurements Heart Rate 64 AXIS NC 186 P 263 QRSd 100 QRS 266 QT 398 T 89 QTc 408 Conclusion Sinus or ectopic atrial rhythm...P axis (-45,135) Right superior axis...QRS axis (-91,240) Nonspecific repol abnormality, diffuse leads...ST dep, T flat/neg, ant/lat/inf
--- NOTE | 2022-09-12 10:25 | ED.GENADUL_ITS ---
Discharge Plan Disposition Patient Disposition: Home Condition: Stable Discharge Details Clinical Impression: RSV infection Primary Care Provider: Anjali Moe ED Provider: Fortino Handy Home Meds and New Rx's Prescriptions: Continued Xarelto 10 mg tablet 10 mg PO DAILY Rx Instructions: for 35 days chlorthalidone 25 mg tablet 25 mg PO DAILY ipratropium-albuterol 0.5 mg-3 mg(2.5 mg base)/3 mL solution for nebulization 3 ml IH Q8H PRN (DME) Oxygen Tank See Rx Instructions .ROUTE .MEDSUPPLY Qty: 1 Rx Instructions: Bipap machine at night acetaminophen [Tylenol] 325 MG tablet 650 mg PO Q6H PRN PRN Saccharomyces boulardii [Daily Probiotic (S. boulardii)] 250 mg capsule 5,000 mmu cells PO DAILY ipratropium-albuterol 0.5 mg-3 mg(2.5 mg base)/3 mL solution for nebulization 3 ml inhalation Q6H PRN Xarelto 20 mg tablet 10 mg PO HS atorvastatin 40 mg tablet 40 mg PO DAILY prednisone 5 mg tablet 5 mg PO DAILY Label Comments: TAKE ONE TABLET BY MOUTH EVERY DAY pantoprazole 40 mg tablet,delayed release (DR/EC) 40 mg PO DAILY budesonide-formoterol [Symbicort] 160-4.5 mcg/actuation HFA aerosol inhaler 2 inh INHALATION BID chlorthalidone 25 mg Tablet 25 mg PO DAILY Qty: 0 0RF amlodipine 5 mg tablet 10 mg PO DAILY Qty: 0 0RF chlorthalidone 50 mg tablet 25 mg PO DAILY Qty: 0 0RF potassium chloride 20 mEq tablet extended release 20 meq PO BID Qty: 30 0RF citalopram 40 mg tablet 40 mg PO DAILY hydroxyzine HCl 25 mg tablet 25 mg PO BID PRN albuterol sulfate 90 mcg/actuation HFA aerosol inhaler 1 puff INHALATION Q6H PRN PRN Discharge Instructions Instructions: Respiratory Syncytial Virus (ED) Additional Instructions: Your work-up today reveals RSV which is a viral respiratory syndrome. No antibiotics are indicated. I would like you to use your neb machine at home every 4-6 hours. Please watch for new or worsening symptoms and return to the ER for any concerns. Lastly, I would like you to contact your primary care provider later today or tomorrow to discuss your ER visit and need for outpatient reevaluation. Medical Decision Making This is a 72-year-old female presenting to the ER for evaluation of dry cough and simply not feeling well for approximately 1 week, has similar symptoms. Clinically she appears well, nontoxic, O2 sats are 98% on room air, she is afebrile. Lungs are slight diminished at the bases and do have some wheezing across the superior aspect. Denies any chest pain whatsoever. We will obtain a cardiac work-up including a single troponin and EKG, D-dimer given her previous history of PE, and a flu, COVID, RSV swab. We will provide a duo and albuterol neb now. Patient reports significant improvement of her symptoms with the neb treatments. Lungs are clear to auscultation. Laboratory values do not reveal any evidence of leukocytosis. Electrolytes reveal a potassium of 3.1, will provide 40 p.o. potassium. BUN 20 creatinine 1.1 with a GFR of 53.06. Troponin less than 50. BNP minimally elevated at 361. Chest x-ray unremarkable COVID and flu negative, RSV positive. Chest CTA reveals no evidence of pulmonary embolism. There are mild symptomatic cysts and fibrotic changes. Work-up reveals RSV positive, certainly would explain her overall presentation. I see no clear indication to initiate antibiotic therapy. Discussed using her at home neb therapy every 4-6 hours. Standard discharge and return precautions were provided. Patient understands, is agreeable to this plan, and has no additional questions or concerns upon discharge. This documentation was generated using [employer] system, please disregard any oddities of phrase or misspellings. Medical Records Medical records reviewed: Yes I reviewed the patient's medical records. Imaging Data Radiologic Study: Attestation: I personally reviewed and interpreted this imaging study as follows: Imaging: X-Ray Radiologist's impression: Exam(s) XR PORTABLE CHEST AP EXAM: XR PORTABLE CHEST AP CLINICAL HISTORY: cough TECHNIQUE: 2D digital imaging was performed. COMPARISON: CT CT CHEST PE CTA from 01/26/2021 CR,XR XR CHEST 2V PA LATERAL from 05/09/2022 FINDINGS: LUNGS: Streaky densities at left lung base, stable. No pleural abnormality seen. HEART: Normal size. AORTA: Normal diameter. BONES: Unremarkable for age. Soft tissues: Unremarkable. IMPRESSION: No acute findings. Radiologic Study #2: Attestation: I personally reviewed and interpreted this imaging study as follows: Imaging: CT Scan Radiologist's impression: Exam(s) CT CHEST PE CTA EXAM: CT CHEST PE CTA CLINICAL HISTORY: cough, hx of pe, elevated dimer. TECHNIQUE: Imaging Protocol: Axial CT angiography was performed with multi- slice acquisition and multi-planar reconstructions as well as axial, coronal and sagittal MIP reconstructions. CONTRAST MATERIAL: Intravenous: Omnipaque 350 Contrast volume:100 ml COMPARISON: CT CT CHEST PE CTA from 01/26/2021 CR XR PORTABLE CHEST AP from 09/12/2022 FINDINGS: Pulmonary Arteries: No evidence of filling defect to suggest pulmonary emboli. Tracheobronchial tree: Patent where visualized. Mediastinum and Felipa: No dominant adenopathy or fluid collection. Pulmonary parenchyma: No consolidation or dominant measurable mass. Stable scarring right lung apex. Mild emphysematous and fibrotic changes. Pleura: No effusion or pneumothorax. Heart: The heart is not dilated. No coronary artery calcifications are seen. Aorta: Thoracic aorta non-dilated. No aneurysm. No dissection. Atheros clerotic changes. Upper abdomen: Unremarkable. Bones: Degenerative changes unremarkable for age. Tubes, Catheters, and Lines: None IMPRESSION: No evidence of pulmonary embolism. Mild emphysematous and fibrotic changes. Lab Data Lab results reviewed: Yes I reviewed the patient's lab results. Labs: Laboratory Tests Range/Units 09/12/22 09/12/22 09/12/22 10:24 10:24 10:24 WBC (4.4-10.8) 10^3/uL 6.06 RBC (3.93-5.22) 10^6/uL 5.00 Hgb (11.2-15.7) g/dL 15.3 Hct (36.0-46.0) % 45.8 MCV (80-95) fL 92 MCH (27.0-33.0) pg 30.6 MCHC (32.0-36.0) % 33.4 RDW (11.7-14.6) % 14.1 Plt Count (130-400) 10^3/uL 200 MPV (8.0-11.0) fL 10.7 Immature Gran % 2.5 Neutrophils % 64.5 Lymphocytes % 14.9 Monocytes % 17.3 Eosinophils % 0.0 Basophils % 0.8 Nucleated RBC % (0.0-0.3) % 0.0 Absolute Neutrophils (1.2-6.7) 10^3/uL 3.91 Absolute Lymphocytes (1.2-3.4) 10^3/uL 0.90 L Absolute Monocytes (0.1-0.8) 10^3/uL 1.05 H Absolute Eosinophils (0.0-0.7) 10^3/uL 0.00 Absolute Basophils (0.0-0.2) 10^3/uL 0.05 PT (9.3-11.0) sec 11.5 H INR (0.9-1.1) 1.1 APTT (21.0-27.5) sec 27.9 H D-Dimer (<500) ng/mlFEU 802 H Sodium (136-145) mmol/L 135 L Potassium (3.5-5.1) mmol/L 3.1 L Chloride (98-107) mmol/L 98 Carbon Dioxide (21.0-32.0) mmol/L 24.9 Anion Gap (3-11) mmol/L 12.1 H BUN (7-18) mg/dL 20 H Creatinine (0.55-1.02) mg/dL 1.1 H Est GFR (CKD-EPI 2020) (mL/min/1.73m2) 53.06 Glucose (74-106) mg/dL 96 Calcium (8.5-10.1) mg/dL 9.5 Magnesium (1.8-2.4) mg/dL 1.8 Total Bilirubin (0.2-1.0) mg/dL 0.7 AST (15-37) U/L 18 ALT (14-59) U/L 20 Alkaline Phosphatase (46-116) U/L 84 Troponin I (<or=60) ng/L < 50 NT-Pro-B Natriuret Pep (<300) pg/mL 361 H Total Protein (6.4-8.2) g/dL 8.3 H Albumin (3.4-5.0) g/dL 4.0 COVID-19 Source SARS-CoV-2 (PCR) Influenza Type A (PCR) Influenza Type B (PCR) RSV (PCR) Range/Units 09/12/22 09/12/22 11:27 12:05 WBC (4.4-10.8) 10^3/uL RBC (3.93-5.22) 10^6/uL Hgb (11.2-15.7) g/dL Hct (36.0-46.0) % MCV (80-95) fL MCH (27.0-33.0) pg MCHC (32.0-36.0) % RDW (11.7-14.6) % Plt Count (130-400) 10^3/uL MPV (8.0-11.0) fL Immature Gran % Neutrophils % Lymphocytes % Monocytes % Eosinophils % Basophils % Nucleated RBC % (0.0-0.3) % Absolute Neutrophils (1.2-6.7) 10^3/uL Absolute Lymphocytes (1.2-3.4) 10^3/uL Absolute Monocytes (0.1-0.8) 10^3/uL Absolute Eosinophils (0.0-0.7) 10^3/uL Absolute Basophils (0.0-0.2) 10^3/uL PT (9.3-11.0) sec INR (0.9-1.1) APTT (21.0-27.5) sec D-Dimer (<500) ng/mlFEU Sodium (136-145) mmol/L Potassium (3.5-5.1) mmol/L Chloride (98-107) mmol/L Carbon Dioxide (21.0-32.0) mmol/L Anion Gap (3-11) mmol/L BUN (7-18) mg/dL Creatinine (0.55-1.02) mg/dL Est GFR (CKD-EPI 2020) (mL/min/1.73m2) Glucose (74-106) mg/dL Calcium (8.5-10.1) mg/dL Magnesium (1.8-2.4) mg/dL Total Bilirubin (0.2-1.0) mg/dL AST (15-37) U/L ALT (14-59) U/L Alkaline Phosphatase (46-116) U/L Troponin I (<or=60) ng/L NT-Pro-B Natriuret Pep (<300) pg/mL Total Protein (6.4-8.2) g/dL Albumin (3.4-5.0) g/dL COVID-19 Source Cancelled Nasopharynx SARS-CoV-2 (PCR) Cancelled Negative Influenza Type A (PCR) Cancelled Negative Influenza Type B (PCR) Cancelled Negative RSV (PCR) Cancelled Positive A* ECG Data Attestation: I personally reviewed and interpreted this ECG (s) as follows: Interpretation: Sinus or ectopic atrial rhythm, ventricular rate of 64, no STEMI. Likely repolarization abnormalities. HPI General Mode of arrival: ambulatory . Date/Time Provider Initiated Documentation: 09/12/22 10:22 . Limitations to Documentation: no limitations . Information obtained by: patient . HPI Narrative: This is a 72-year-old female, fully vaccinated, past medical history of PAD, PE, on Xarelto, hypertension, former smoker 21 years ago, anxiety and depression, hyperlipidemia, obstructive sleep apnea, presenting to the ER for 1 week history of a harsh dry cough. Patient states that just yesterday her was diagnosed with bronchitis. Patient denies fever, headache, neck pain, chest pain, productive cough, shortness of breath at rest no abdominal pain, nausea, vomiting, increased pain or swelling in her lower extremities. Patient reports that she does have shortness of breath with severe coughing fits. She has been using a home neb machine with minimal results. Seen by urgent care today sent to the ER for further evaluation. Related Data Home Medications Medication Instructions Recorded Confirmed acetaminophen 325 mg tablet 650 mg PO Q6H PRN PRN 11/23/14 09/12/22 (Tylenol) ipratropium 0.5 mg-albuterol 3 mg 3 ml inhalation Q8H PRN 09/30/18 09/12/22 (2.5 mg base)/3 mL nebulization soln Oxygen #1 ea 05/01/19 09/12/22 albuterol sulfate 90 mcg/actuation 1 puff inhalation Q6H PRN PRN 04/08/20 09/12/22 aerosol inhaler citalopram 40 mg tablet 40 mg PO DAILY 04/08/20 09/12/22 hydroxyzine HCl 25 mg tablet 25 mg PO BID PRN 04/08/20 09/12/22 rivaroxaban 20 mg tablet (Xarelto) 10 mg PO HS 12/19/20 09/12/22 amlodipine 5 mg tablet 10 mg PO DAILY #0 tabs 01/18/22 09/12/22 atorvastatin 40 mg tablet 40 mg PO DAILY 01/18/22 09/12/22 budesonide-formoterol HFA 160 2 inh inhalation BID 01/18/22 09/12/22 mcg-4.5 mcg/actuation aerosol inhaler (Symbicort) chlorthalidone 25 mg tablet 25 mg PO DAILY #0 tabs 01/18/22 09/12/22 chlorthalidone 50 mg tablet 25 mg PO DAILY #0 tabs 01/18/22 09/12/22 pantoprazole 40 mg tablet,delayed 40 mg PO DAILY 01/18/22 09/12/22 release potassium chloride 20 mEq 20 meq PO BID #30 tabs 01/18/22 09/12/22 tablet,extended release prednisone 5 mg tablet 5 mg PO DAILY 01/18/22 09/12/22 Saccharomyces boulardii 250 mg 5,000 mmu cells PO DAILY 04/16/22 09/12/22 capsule (Daily Probiotic (S. boulardii)) ipratropium 0.5 mg-albuterol 3 mg 3 ml inhalation Q6H PRN 04/16/22 09/12/22 (2.5 mg base)/3 mL nebulization soln chlorthalidone 25 mg tablet 25 mg PO DAILY 09/12/22 09/12/22 rivaroxaban 10 mg tablet (Xarelto) 10 mg PO DAILY 09/12/22 09/12/22 Previous Rx's Medication Instructions Recorded amlodipine 5 mg tablet 10 mg PO DAILY #0 tabs 01/18/22 chlorthalidone 25 mg tablet 25 mg PO DAILY #0 tabs 01/18/22 chlorthalidone 50 mg tablet 25 mg PO DAILY #0 tabs 01/18/22 potassium chloride 20 mEq 20 meq PO BID #30 tabs 01/18/22 tablet,extended release Allergies Allergy/AdvReac Type Severity Reaction Status Date / Time clarithromycin Allergy Severe HIVES Verified 09/12/22 10:16 Penicillins Allergy Severe HIVES Verified 09/12/22 10:16 tetracycline Allergy Severe HIVES, Verified 09/12/22 10:16 HALLUCINATIONS eszopiclone [Eszopiclone] Allergy Unknown pt unsure Verified 09/12/22 10:16 of reaction telithromycin [Telithromycin] Allergy Unknown pt unsure Verified 09/12/22 10:16 raloxifene HCl [From Evista] AdvReac Intermediate BODY ACHES Verified 09/12/22 10:16 sulfamethoxazole AdvReac Intermediate HEADACHE,VO Verified 09/12/22 10:16 [From Bactrim] MITING trimethoprim [From Bactrim] AdvReac Intermediate HEADACHE,VO Verified 09/12/22 10:16 MITING alendronate sodium AdvReac Mild BODY ACHE Verified 09/12/22 10:16 codeine AdvReac Mild GI UPSET Verified 09/12/22 10:16 risedronate sodium AdvReac Mild BODY ACHES Verified 09/12/22 10:16 [From Actonel] Bisphosphonates AdvReac Unknown achy joints Verified 09/12/22 10:16 hydrocodone [Hydrocodone] AdvReac Unknown vomitting Verified 09/12/22 10:16 Macrolide Antibiotics AdvReac Unknown vomitting Verified 09/12/22 10:16 and hallucinations morphine AdvReac Unknown pt. felt Verified 09/12/22 10:16 like she was floating, states she thinks she got to Sulfa (Sulfonamide AdvReac Other (See Unverified 09/12/22 10:16 Antibiotics) Comment) General Stated Complaint: SOB TENA: 3 Review of Systems Constitutional Constitutional: Denies fatigue, Denies fever(s), Denies headache(s) and Denies w eakness ENT Ears, Nose, Mouth, and Throat: Denies headache(s) and Denies sore throat Cardiovascular Cardiovascular: Denies chest pain and Reports dyspnea Respiratory Respiratory: Reports cough and Reports dyspnea Gastrointestinal Gastrointestinal: Denies abdominal pain, Denies nausea and Denies vomiting Musculoskeletal Musculoskeletal: Denies back pain Integumentary/Breasts Skin/Breast: Denies rash Neurologic Neurologic: Denies headache(s) and Denies weakness Psychiatric Psychiatric: Reports anxiety Endocrine Endocrine: Denies fatigue Hematologic/Lymphatic Hematologic/Lymphatic: Reports easy bleeding and Reports easy bruising PFSH All Active Problems (Updated 09/12/22 @ 13:54 by LORENA Zamora) RSV infection (Acute) Hearing loss, bilateral (Acute) Fatigue (Acute) Macrocytosis (Acute) Hypokalemia (Acute) Cellulitis (Acute) Vertigo (Acute) Nausea and vomiting (Acute) Discharge planning issues (Acute) PAD (peripheral artery disease) (Acute) Orthostasis (Acute) DVT prophylaxis (Acute) Pulmonary embolism (Chronic) Diverticulosis (Acute) Colon polyps (Acute) Polymyalgia rheumatica (Acute 10/12/11) Obesity (Acute 12/10/12) Depressive disorder, not elsewhere classified (Acute 10/12/11) Benign essential hypertension (Acute 04/10/13) Encounter for screening colonoscopy (Acute) History of colonoscopy (Chronic) Serrated polyp of colon (Acute 11/11/15) Vertigo (Acute 06/03/14) Vaginal discharge (Acute 11/23/14) Tinnitus (Acute 06/03/14) Sensorineural hearing loss, bilateral (Acute 06/03/14) Restless legs (Acute 01/19/13) Dr. Greer Obstructive sleep apnea (adult) (pediatric) (Acute 01/19/13) severe, Dr. Greer, on auto Bi-Level bipap Lumbago (Acute 12/10/12) Esophageal reflux (Acute 12/10/12) EGD 05/25/13 KD: mild antritis and distal esophagitis; int metaplasia, no dysplasia Midline cystocele (Acute 12/10/12) pt. unsure Benign paroxysmal vertigo (Acute 10/12/11) Allergic rhinitis, unspecified (Acute 12/10/12) Head pain (Acute) Neoplasm of unspecified behavior of bone, soft tissue, and skin (Acute) Leukoplakia of oral cavity (Acute) Polymyalgia rheumatica (Chronic) Anxiety and depression (Chronic) Sleep apnea (Chronic) Benign essential hypertension (Chronic) Temporal arteritis (Acute) Hyperlipemia (Chronic) DJD (degenerative joint disease) (Chronic) Hypertension (Chronic) GERD (gastroesophageal reflux disease) (Chronic) Obesity (Chronic) Osteoarthritis (Chronic) Medical History Abnormal colonoscopy (11/11/15) 11/11/15 Dr Brizuela, sessile serrated adenoma, repeat 3 years. mg Adenomatous colon polyp 11/11/15 Dr Brizuela, sessile serrated adenoma, repeat 3 years. mg Diverticulosis 05/12/[address] Mariela Arizmendi, [facility] History of pulmonary embolism Hx of adenomatous colonic polyps (~05/2019) villous adenoma MEHUL (obstructive sleep apnea) stopped bipap 2020 Peripheral vascular disease Prediabetes Surgical History History of cardiac cath Hx of colonoscopy Family History Sister Cancer Breast cancer Father Heart disease Mother Heart disease Brother Heart disease MD Social History Smoking/Tobacco Use Status: Former Tobacco Use Quit Date: 09/02/99 Smoking risk assessment performed?: Yes Alcohol Intake: current Alcohol Intake frequency: 0-2 drinks per day Alcohol type: wine Drug use: Never Substance use type: does not use Adopted: No Caregiver/Support person: No Foster care: No Housing: house Number of Children: 3 number of grandchildren: 4 Communication Needs: Hard of Hearing Education Level: high school current occupation: Retired Pets and animals: Yes Pets and animals: dog(s) Sexually active: No Do you think of yourself as: straight/heterosexual Current gender identity: female What is your relationship status?: How often do you talk on the phone with friends or family?: three or more times per week How often do you get together with friends or relatives?: once per week Do you belong to any clubs or organized social groups?: no Panel score (0-1 are the most socially isolated patients): 2 What type of physical activity do you participate in: none Dilia/Restorationist: Scientologist Special dilia needs: No Seatbelt use: always Drive intox or ride w/intox line driver: No Do you feel safe at home: Yes Do you feel safe in your relationship?: Yes Additional Social history: Lives with of 55 years in [place]. She has 3 kids who live close. 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 Exam Const General: cooperative, healthy appearing, comfortable and no acute distress Orientation: alert and awake [facility] Head: normal to inspection, normocephalic and atraumatic Face and sinus: normal facial exam Mouth: moist mucous membranes Eyes General: appearance normal, both eyes and all related structures Conjunctivae: conjunctivae normal Neck Neck: normal visual inspection, full ROM, no meningeal signs, trachea midline and supple Resp Effort & Inspection: normal respiratory effort, able to speak in complete sentences and cough Quality of cough: dry Auscultation: diminished lung sounds bilaterally in the lower lung richter and wheezes (Upper expiratory, mild) Cardio Rate: regular rate Rhythm: regular rhythm GI Palpation: soft and nontender Back/Spine/Pelvis Back: no CVA tenderness and No back tenderness Skin General skin exam: no rashes or lesions noted Neuro General: patient alert, patient awake, patient oriented x3, moves all extremities and no focal motor deficits Cranial Nerves: CN's II-XI intact bilaterally Cognition: normal cognition Speech: speech normal Gait: normal gait Motor: muscle tone normal throughout Sensory Exam: no sensory deficits noted Extrem General: full ROM, capillary refill normal, no calf tenderness, normal gait and pedal edema bilaterally non-pitting and 1+ Psych Appearance: grossly normal Mental Status: mental status grossly normal Course Vital Signs Vital signs: Vital Signs Temperature 36.9 C 09/12/22 10:10 Pulse 77 09/12/22 10:10 Respiratory Rate 27 H 09/12/22 10:10 Blood Pressure 154/71 H 09/12/22 10:10 Pulse Oximetry 98 09/12/22 10:10 Temperature 36.9 C 09/12/22 10:10 Temperature Source Skin 09/12/22 10:10 Pulse 77 09/12/22 10:10 Respiratory Rate 27 H 09/12/22 10:10 Respiratory Effort 09/12/22 10:16 Blood Pressure 154/71 H 09/12/22 10:10 Blood Pressure Position Sitting 09/12/22 10:10 Pulse Oximetry 98 09/12/22 10:10 Oxygen Delivery Method Nasal Cannula 09/12/22 10:10 Oxygen Flow Rate 2 09/12/22 10:10 Pain Level 0 09/12/22 10:10
[2022-09-12 10:38] LABS: Abs Immature Grans 0.15 10^3/uL (0.0-0.06); Absolute Basophil Count 0.05 10^3/uL (0.0-0.2); Absolute Monocyte Count 1.05 10^3/uL (0.1-0.8); Absolute Neutrophil Count 3.91 10^3/uL (1.2-6.7); Basophils % 0.8; HCT 45.8 % (36.0-46.0); HGB 15.3 g/dL (11.2-15.7); Immature Grans % 2.5; Lymphocytes % 14.9; MCH 30.6 pg (27.0-33.0); MCHC 33.4 % (32.0-36.0); MCV 92 fL (80-95); MPV 10.7 fL (8.0-11.0); Monocytes % 17.3; Neutrophils % 64.5; Platelet Count 200 10^3/uL (130-400); RDW 14.1 % (11.7-14.6); RDW-SD 47.5 fL; WBC 6.06 10^3/uL (4.4-10.8)
[2022-09-12 10:51] LABS: PTT Activated 27.9 sec (21.0-27.5); Prothrombin Time 11.5 sec (9.3-11.0)
[2022-09-12 11:00] LABS: ALT 20 U/L (14-59); AST 18 U/L (15-37); Alkaline Phosphatase 84 U/L (46-116); Anion Gap 12.1 mmol/L (3-11); BUN 20 mg/dL (7-18); Bilirubin, Total 0.7 mg/dL (0.2-1.0); CO2 24.9 mmol/L (21.0-32.0); CREATININE 1.1 mg/dL (0.55-1.02); Calcium 9.5 mg/dL (8.5-10.1); Chloride 98 mmol/L (98-107); Estimated GFR 53.06 (mL/min/1.73m2); Glucose 96 mg/dL (74-106); Magnesium 1.8 mg/dL (1.8-2.4); NT-proBNP 361 pg/mL (<300); Potassium 3.1 mmol/L (3.5-5.1); Sodium 135 mmol/L (136-145); Total Protein 8.3 g/dL (6.4-8.2); Troponin I < 50 ng/L (<or=60)
--- NOTE | 2022-09-12 11:07 | DI.RAD_ITS ---
Exam(s) XR PORTABLE CHEST AP EXAM: XR PORTABLE CHEST AP CLINICAL HISTORY: cough TECHNIQUE: 2D digital imaging was performed. COMPARISON: CT CT CHEST PE CTA from 01/26/2021 CR,XR XR CHEST 2V PA LATERAL from 05/09/2022 FINDINGS: LUNGS: Streaky densities at left lung base, stable. No pleural abnormality seen. HEART: Normal size. AORTA: Normal diameter. BONES: Unremarkable for age. Soft tissues: Unremarkable. IMPRESSION: No acute findings. DATA REPOSITORY: RADIATION DOSE DELIVERED:
[2022-09-12 11:17] LABS: D-Dimer 802 ng/mlFEU (<500)
[2022-09-12 11:18] LABS: INR 1.1 (0.9-1.1)
[2022-09-12] MEDS: Albuterol 2.5 MG/3 ML INH SOLN VIAL UPD (11:33)
[2022-09-12] MEDS: Potassium Chloride 20 MEQ TABCR 40 MEQ PO (11:33)
[2022-09-12] MEDS: Albuterol/Ipratropium 3 ML UPD VIAL UPD (11:33)
--- NOTE | 2022-09-12 12:07 | NUR.NOTE ---
Pt cont to c/o SOB. 99% on RA. Extra blankets provided. Will cont to monitor. Nursing Note:
[2022-09-12 12:50] LABS: COVID-19 PCR Negative (Negative); Influenza A PCR Negative (Negative); Influenza B PCR Negative (Negative)
[2022-09-12 12:57] LABS: RSV PCR Positive (Negative); Source Nasopharynx
--- NOTE | 2022-09-12 13:07 | DI.CT_ITS ---
Exam(s) CT CHEST PE CTA EXAM: CT CHEST PE CTA CLINICAL HISTORY: cough, hx of pe, elevated dimer. TECHNIQUE: Imaging Protocol: Axial CT angiography was performed with multi-slice acquisition and mu lti-planar reconstructions as well as axial, coronal and sagittal MIP reconstructions. CONTRAST MATERIAL: Intravenous: Omnipaque 350 Contrast volume:100 ml COMPARISON: CT CT CHEST PE CTA from 01/26/2021 CR XR PORTABLE CHEST AP from 09/12/2022 FINDINGS: Pulmonary Arteries: No evidence of filling defect to suggest pulmonary emboli. Tracheobronchial tree: Patent where visualized. Mediastinum and Felipa: No dominant adenopathy or fluid collection. Pulmonary parenchyma: No consolidation or dominant measurable mass. Stable scarring right lung apex. Mild emphysematous and fibrotic changes. Pleura: No effusion or pneumothorax. Heart: The heart is not dilated. No coronary artery calcifications are seen. Aorta: Thoracic aorta non-dilated. No aneurysm. No dissection. Atherosclerotic changes. Upper abdomen: Unremarkable. Bones: Degenerative changes unremarkable for age. Tubes, Catheters, and Lines: None IMPRESSION: No evidence of pulmonary embolism. Mild emphysematous and fibrotic changes. RADIATION DOSE DELIVERED: 476.32mGy.cm Total DLP DATA REPOSITORY: All CT scans at this facility are submitted to the National Radiology Data Registry (NRDR) Dose Index Registry (DIR) with the [employer] (ACR). RADIATION OPTIMIZATION: All CT scans at this facility use at least one of these dose optimization te chniques: automated exposure control; mA and/or kV adjustment per patient size (includes targeted exa ms where dose is matched to clinical indication); or iterative reconstruction.
[2022-09-12] MEDS: Omnipaque 350 MG/ML 100 ML BTL IJ (13:33)
== END 2022-09-12 14:41 | disposition home or self-care (01) ==
PROVIDERS: Emergency Provider Physician Assistant; PCP Student in an Organized Health Care Education/Training Program
DX: J98.4 Other disorders of lung (principal); B97.4 Respiratory syncytial virus as the cause of diseases classified elsewhere; I10 Essential (primary) hypertension; E78.5 Hyperlipidemia, unspecified; R79.89 Other specified abnormal findings of blood chemistry; F32.A Depression, unspecified; Z86.711 Personal history of pulmonary embolism; Z79.01 Long term (current) use of anticoagulants; Z20.822 Contact with and (suspected) exposure to COVID-19; R06.02 Shortness of breath
CPT/HCPCS: 71275; 80053; 87637; 93005; 99285; 71045; 83735; 83880; 84484; 85025; 85379; 85610; 85730; 93010; J3490; J7613; J7620

== ENCOUNTER 2022-09-18 10:55 | Outpatient (CLI) | payer MEDICARE, SELFPAY ==
--- NOTE | 2022-09-18 10:58 | DI.RAD_ITS ---
Exam(s) XR CHEST 2V PA LATERAL EXAM: XR CHEST 2V PA LATERAL CLINICAL HISTORY: evaluate pathology, RSV infection, B33.8. TECHNIQUE: 2D digital imaging was performed. COMPARISON: CR XR PORTABLE CHEST AP from 09/12/2022 FINDINGS: 2 views: Heart size is normal. The mediastinum is not widened. Lungs are clear. No infiltrates nor pleural effusions. IMPRESSION: No acute pulmonary findings.No significant change compared to 09/12/2022. DATA REPOSITORY: RADIATION DOSE DELIVERED:
== END 2022-09-18 11:15 ==
PROVIDERS: PCP Student in an Organized Health Care Education/Training Program; Visit Provider Nurse Practitioner Family
DX: B33.8 Other specified viral diseases (principal)
CPT/HCPCS: 71046

== ENCOUNTER 2022-10-12 01:51 | Outpatient (CLI) | payer MEDICARE, SELFPAY ==
[2022-10-12 13:23] LABS: Anion Gap 9.7 mmol/L (3-11); BUN 21 mg/dL (7-18); CO2 25.3 mmol/L (21.0-32.0); CREATININE 0.9 mg/dL (0.55-1.02); Calcium 9.5 mg/dL (8.5-10.1); Chloride 103 mmol/L (98-107); Glucose 102 mg/dL (74-106); Magnesium 1.8 mg/dL (1.8-2.4); Potassium 3.5 mmol/L (3.5-5.1); Sodium 138 mmol/L (136-145)
== END 2022-10-12 01:52 | disposition home or self-care (01) ==
LOC: LBO 01:51
PROVIDERS: PCP Student in an Organized Health Care Education/Training Program; Referring Provider Student in an Organized Health Care Education/Training Program; Visit Provider Student in an Organized Health Care Education/Training Program
DX: B33.8 Other specified viral diseases (principal); E87.6 Hypokalemia; J40 Bronchitis, not specified as acute or chronic; N18.9 Chronic kidney disease, unspecified; R73.03 Prediabetes
CPT/HCPCS: 36415; 80048; 83735

== ENCOUNTER 2022-11-16 01:53 | Outpatient (CLI) | payer MEDICARE, SELFPAY ==
[2022-11-16 09:35] LABS: Anion Gap 9.9 mmol/L (3-11); BUN 20 mg/dL (7-18); CO2 23.1 mmol/L (21.0-32.0); Calcium 9.1 mg/dL (8.5-10.1); Chloride 104 mmol/L (98-107); Estimated GFR 59.49 (mL/min/1.73m2); Glucose 93 mg/dL (74-106); Potassium 4.2 mmol/L (3.5-5.1); Sodium 137 mmol/L (136-145)
[2022-11-16 10:08] LABS: Hemoglobin A1C 5.9 % (<5.7)
== END 2022-11-16 01:54 | disposition home or self-care (01) ==
LOC: LBO 01:53
PROVIDERS: PCP Student in an Organized Health Care Education/Training Program; Referring Provider Student in an Organized Health Care Education/Training Program; Visit Provider Student in an Organized Health Care Education/Training Program
DX: E87.6 Hypokalemia (principal); R73.03 Prediabetes; I10 Essential (primary) hypertension; R19.7 Diarrhea, unspecified
CPT/HCPCS: 36415; 80048; 83036; 83735

== ENCOUNTER 2023-01-17 11:33 | Outpatient (CLI) | payer MEDICARE, SELFPAY ==
[2023-01-17 10:58] LABS: Abs Immature Grans 0.18 10^3/uL (0.0-0.06); Absolute Basophil Count 0.03 10^3/uL (0.0-0.2); Absolute Lymphocyte Count 1.53 10^3/uL (1.2-3.4); Absolute Monocyte Count 0.97 10^3/uL (0.1-0.8); Absolute Neutrophil Count 5.99 10^3/uL (1.2-6.7); Basophils % 0.3; HCT 41.5 % (36.0-46.0); HGB 13.9 g/dL (11.2-15.7); Immature Grans % 2.1; Lymphocytes % 17.6; MCH 31.6 pg (27.0-33.0); MCHC 33.5 % (32.0-36.0); MCV 94 fL (80-95); MPV 10.4 fL (8.0-11.0); Monocytes % 11.1; Neutrophils % 68.9; Platelet Count 192 10^3/uL (130-400); RDW 14.6 % (11.7-14.6); RDW-SD 49.8 fL
[2023-01-17 11:00] LABS: ESR 8 mm/hr (0-30)
[2023-01-17 11:29] LABS: Anion Gap 9.8 mmol/L (3-11); BUN 24 mg/dL (7-18); C-Reactive Protein 0.73 mg/dL (0.0-0.3); CO2 27.2 mmol/L (21.0-32.0); CREATININE 1.1 mg/dL (0.55-1.02); Calcium 9.5 mg/dL (8.5-10.1); Chloride 101 mmol/L (98-107); Estimated GFR 53.06 (mL/min/1.73m2); Glucose 98 mg/dL (74-106); Potassium 3.2 mmol/L (3.5-5.1); Sodium 138 mmol/L (136-145)
== END 2023-01-17 11:34 | disposition home or self-care (01) ==
LOC: LBO 11:33
PROVIDERS: PCP Student in an Organized Health Care Education/Training Program; Visit Provider Nurse Practitioner
DX: M31.5 Giant cell arteritis with polymyalgia rheumatica; Z79.899 Other long term (current) drug therapy; Z51.81 Encounter for therapeutic drug level monitoring
CPT/HCPCS: 36415; 80048; 85652; 85025; 86140

== ENCOUNTER 2023-02-06 13:05 | Outpatient (CLI) | payer MEDICARE, SELFPAY ==
[2023-02-06 16:36] LABS: Anion Gap 12.2 mmol/L (3-11); BUN 19 mg/dL (7-18); CO2 20.8 mmol/L (21.0-32.0); CREATININE 1.3 mg/dL (0.55-1.02); Chloride 103 mmol/L (98-107); Estimated GFR 43.42 (mL/min/1.73m2); Glucose 161 mg/dL (74-106); Magnesium 2.1 mg/dL (1.8-2.4); Potassium 4.1 mmol/L (3.5-5.1); Sodium 136 mmol/L (136-145)
== END 2023-02-06 13:06 | disposition home or self-care (01) ==
LOC: LBO 13:05
PROVIDERS: PCP Student in an Organized Health Care Education/Training Program; Visit Provider Student in an Organized Health Care Education/Training Program
DX: I10 Essential (primary) hypertension (principal); E87.8 Other disorders of electrolyte and fluid balance, not elsewhere classified; E87.6 Hypokalemia
CPT/HCPCS: 36415; 80048; 83735

== ENCOUNTER 2023-03-25 22:48 | Outpatient (CLI) | payer MEDICARE, SELFPAY ==
--- NOTE | 2023-03-25 11:00 | DI.RAD_ITS ---
Exam(s) XR CHEST 2V PA LATERAL EXAM: XR CHEST 2V PA LATERAL CLINICAL HISTORY: SOB R06.02-EMPHYSEMA J43.9-PULMONARY FIBROSIS J84.10 TECHNIQUE: 2D digital imaging was performed of the chest. Two images were obtained. PA and lateral views were obtained. COMPARISON: CR XR CHEST 2V PA LATERAL from 09/18/2022 FINDINGS: MEDIASTINUM: Normal. HEART: Normal. PULMONARY VASCULATURE: Normal. LUNGS: Clear. PLEURAL SPACE: No pleural effusion or pneumothorax. BONE:Within normal limits for the patient's age. OTHER FINDINGS:Normal. IMPRESSION: No acute pulmonary findings. DATA REPOSITORY: RADIATION DOSE DELIVERED:
== END 2023-03-25 23:08 ==
LOC: DI 22:48
PROVIDERS: PCP Student in an Organized Health Care Education/Training Program; Visit Provider Nurse Practitioner
DX: R06.02 Shortness of breath (principal); J43.9 Emphysema, unspecified; J84.10 Pulmonary fibrosis, unspecified
CPT/HCPCS: 71046

== ENCOUNTER 2023-04-10 02:04 | Outpatient (CLI) | payer MEDICARE, SELFPAY ==
--- NOTE | 2023-04-10 07:15 | DI.RAD_ITS ---
Exam(s) XR CHEST 2V PA LATERAL EXAM: XR CHEST 2V PA LATERAL CLINICAL HISTORY: prior to V/Q,dyspnea on exertion, h/o pe, r06.00 TECHNIQUE: 2D digital imaging was performed. COMPARISON: CT CT CHEST PE CTA from 09/12/2022 CR XR CHEST 2V PA LATERAL from 03/25/2023 FINDINGS: HEART: Normal size. Aorta: Mildly tortuous. PULMONARY VASCULATURE: Normal. LUNGS: Mild fibrotic changes. Mild apical pleural thickening. PLEURAL SPACE: No pleural effusion or pneumothorax. BONE:Unremarkable for age. IMPRESSION: No acute abnormality. DATA REPOSITORY: RADIATION DOSE DELIVERED:
--- NOTE | 2023-04-10 07:15 | DI.NM_ITS ---
Exam(s) NM LUNG SCAN VENT PERF AEROS EXAM: NM LUNG SCAN VENT PERF AEROS CLINICAL HISTORY: dyspnea on exertion, hx Pulm embolism,on anticoag,r06.00. TECHNIQUE: Injected Dose: Ventilation: 31 mCi Tc-99m DTPA via inhalation Perfusion: 4 mCi Tc-99m MAA via IV COMPARISON: CT CT CHEST PE CTA from 09/12/2022 CR XR CHEST 2V PA LATERAL from 04/10/2023 FINDINGS: Chest X-Ray: Clear lungs. Perfusion: Normal. Ventilation: Mild in homogeneity. No focal defects. IMPRESSION: 1. Low probability VQ examination. . . . Modified PIOPED II criteria Probability Criteria High Two or more segments of V/Q mismatch Low Normal Perfusion, Non segmental perfusion abnormalitie s, pleural effusion in at least 1/3 of pleural cavity with no other defect Radiograph/perfusion matched defect in mid to upper lung confined to segment, one to three small segmental perfusion defects (<25% of segment) Perfusion defect smaller than corresponding radiogra phic lesion. Intermediate All other findings DATA REPOSITORY:
== END 2023-04-10 02:24 ==
LOC: DI 02:04
PROVIDERS: PCP Student in an Organized Health Care Education/Training Program; Visit Provider Physician Assistant Surgical
DX: J47.9 Bronchiectasis, uncomplicated; R06.09 Other forms of dyspnea
CPT/HCPCS: 71046; 78582

== ENCOUNTER 2023-04-30 03:20 | Outpatient (CLI) | payer MEDICARE, SELFPAY ==
[2023-04-30 11:46] LABS: Anion Gap 11.3 mmol/L (3-11); BUN 21 mg/dL (7-18); CO2 22.7 mmol/L (21.0-32.0); CREATININE 0.9 mg/dL (0.55-1.02); Calcium 9.2 mg/dL (8.5-10.1); Chloride 101 mmol/L (98-107); Estimated GFR 67.08 (mL/min/1.73m2); Glucose 100 mg/dL (74-106); Potassium 3.6 mmol/L (3.5-5.1); Sodium 135 mmol/L (136-145)
== END 2023-04-30 03:21 | disposition home or self-care (01) ==
LOC: LBO 03:20
PROVIDERS: PCP Student in an Organized Health Care Education/Training Program; Visit Provider Internal Medicine Cardiovascular Disease
DX: E87.6 Hypokalemia (principal); E87.8 Other disorders of electrolyte and fluid balance, not elsewhere classified; I10 Essential (primary) hypertension; N17.9 Acute kidney failure, unspecified
CPT/HCPCS: 36415; 80048

== ENCOUNTER 2023-05-07 13:41 | Outpatient (REF) | payer MEDICARE, SELFPAY | END 2023-05-07 13:42 | disposition home or self-care (01) | LOC: LBN 13:41 | PROVIDERS: PCP Student in an Organized Health Care Education/Training Program; Visit Provider Student in an Organized Health Care Education/Training Program | DX: R06.09 Other forms of dyspnea (principal); J43.8 Other emphysema; Z87.891 Personal history of nicotine dependence | CPT/HCPCS: 87070; 87205 ==

== ENCOUNTER 2023-05-16 11:07 | Emergency (ER) | payer MEDICARE, SELFPAY ==
--- NOTE | 2023-05-16 11:00 | RT.EKG_ITS ---
APPROVED REPORT Exam: Resting ECG Reason for Exam: chest pain Patient Location: E HR:63 bpm ECG Measurements Heart Rate 63 AXIS OH 198 P 74 QRSd 97 QRS 30 QT 411 T 21 QTc 420 Conclusion Sinus rhythm...normal P axis, V-rate 60- [address] depression, anterolateral leads...ST <-0.07mV, I aVL V2-V6 Physician: unchanged lateral depression, no stemi
[2023-05-16 11:11] VITALS: BP 171/57; PULSE 63; RESP 20; TEMP 36.8; O2SAT 99
--- NOTE | 2023-05-16 11:27 | W.ED.GENAD ---
Discharge Plan Disposition Patient Disposition: Home Condition: Improving Discharge Details Clinical Impression: COPD exacerbation, Pulmonary emphysema, Chest pain Primary Care Provider: Anjali Moe ED Provider: Tejal Dean Home Meds and New Rx's Prescriptions: Continued Xarelto 10 mg tablet 10 mg PO DAILY Rx Instructions: for 35 days atorvastatin 40 mg tablet 40 mg PO DAILY Qty: 90 3RF amlodipine 5 mg tablet 10 mg PO DAILY Qty: 180 3RF ipratropium-albuterol 0.5 mg-3 mg(2.5 mg base)/3 mL solution for nebulization 3 ml inhalation Q6H PRN (Reason: shortness of breath or wheezing) Qty: 180 1RF (DME) Oxygen Tank See Rx Instructions .ROUTE .MEDSUPPLY Qty: 1 Rx Instructions: Bipap machine at night cyanocobalamin (vitamin B-12) 1,000 mcg capsule 1,000 mcg PO DAILY gabapentin 100 mg capsule 100 mg PO QHS Patient Comments: RX by Chrissy Roach, 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 Monreal.HE cholecalciferol (vitamin D3) 50 mcg (2,000 unit) capsule 50 mcg PO DAILY potassium chloride 20 mEq tablet extended release 20 meq PO BID Patient Comments: keep on list in case of diarrhea Rx Instructions: Hx 40MEq daily, December-Jan 2023 acetaminophen [Tylenol] 325 MG tablet 650 mg PO Q6H PRN PRN pantoprazole 40 mg tablet,delayed release (DR/EC) 40 mg PO DAILY Qty: 90 0RF citalopram 40 mg tablet 40 mg PO DAILY Qty: 90 3RF budesonide 0.25 mg/2 mL suspension for nebulization 0.25 mg inhalation BID Qty: 60 6RF prednisone 1 mg tablet 10 mg PO DAILY hydroxyzine HCl 25 mg tablet 25 mg PO BID PRN Discharge Instructions Instructions: COPD (Chronic Obstructive Pulmonary Disease) (ED) Additional Instructions: At this time no evidence of heart attack, pneumonia, or pulmonary embolism or blood clot in your lung. Please follow-up with Dr. Herndon within a week Follow up with primary care provider in 3-5 days. Return to ED sooner if any worsening or concerns. Increase oral fluids. Please discuss outpatient stress testing with your PCP if needed. Continue taking your medications and inhalers as previously prescribed. Referrals: Anjali Moe DO [Primary Care Provider] - 3 days Medical Decision Making 73-year-old female with past medical history of pulmonary emphysema, long-term anticoagulation use of Xarelto, pulmonary embolism, hypertension, temporal arteritis, degenerative joint disease, GERD with multiple allergies who is on a prednisone taper and followed by pulmonology presents with approximately 3 days of chest heaviness, increased shortness of breath, sore throat and dizziness. She has recently as noted above been placed on a prednisone taper, she also is started budesonide nebulizers and a duo nebulizer. She did use her budesonide at nebulizer prior to arrival. She denies any lower extremity swelling, fever or any other associated symptoms. EKG was reviewed by Dr. Sheldon ER attending, old EKG available for review, does have some anterior lateral ST depressions. Please see his official report. Heart Score is a 5 Cardiac work-up ordered including CBC CMP serial troponins, proBNP due to shortness of breath, COVID swab, 324 mg aspirin. Will consider chest CT pending labs as patient is scheduled for this by her group therapist. 1352: Patient reevaluation she reports that her chest heaviness has subsided. She did get up to the commode per RN report and became increased shortness of breath. Her O2 sat dropped down to 88-89% on room air. She is now up to 96% at rest. We will give a DuoNeb here in the department. Discussed plan of care and CT results and lab results. Repeat troponin and EKG do just after 2 PM. At this time working diagnosis is COPD/pulmonary fibrosis exacerbation. No evidence of PE no pneumonia see CT result below, initial troponin less than 50 within normal limits proBNP within normal limits no leukocytosis, electrolytes within normal limits. Negative COVID. Repeat serial troponin negative, EKG is unchanged. His patient to be discharged home with close follow-up with pulmonology and PCP. Given strict return instructions and follow-up care. This text was generated using [employer] system, please disregard any oddities of phrase or misspellings. Medical Records Medical records reviewed: Yes I reviewed the patient's medical records. Imaging Data Radiologic Study: Imaging: CT Scan Radiologist's impression: EXAM: CT CHEST PE CTA CLINICAL HISTORY: SOb, Chest heaviness, hx of PE. TECHNIQUE: Imaging Protocol: Axial CT angiography was performed with multi-slice acquisition and multi-planar reconstructions as well as axial, coronal and sagittal MIP reconstructions. CONTRAST MATERIAL: Intravenous: Omnipaque 350 Contrast volume:100 ml COMPARISON: CT CT CHEST PE CTA from 09/12/2022 FINDINGS: Pulmonary Arteries: No evidence of filling defect to suggest pulmonary emboli. Tracheobronchial tree: Patent where visualized. Mediastinum and Felipa: No dominant adenopathy or fluid collection. Pulmonary parenchyma: Mild emphysematous and fibrotic changes. Stable area of scarring right lung apex. No consolidation or dominant measurable mass. Expiratory changes posteriorly. No evidence of infiltrate. Pleura: No effusion or pneumothorax. Heart: The heart is not dilated. No coronary artery calcifications are seen. Aorta: Thoracic aorta non-dilated. No aneurysm. No dissection. Mild atherosclerotic changes. Upper abdomen: Unremarkable. Bones: Degenerative changes. No compression fractures. Tubes, Catheters, and Lines: None IMPRESSION: No evidence of pulmonary embolism. No acute abnormality in the chest. Lab Data Lab results reviewed: Yes I reviewed the patient's lab results. Labs: Laboratory Tests Range/Units 05/16/23 05/16/23 05/16/23 11:28 11:36 11:36 WBC (4.4-10.8) 10^3/uL 10.46 RBC (3.93-5.22) 10^6/uL 4.79 Hgb (11.2-15.7) g/dL 14.6 Hct (36.0-46.0) % 45.1 MCV (80-95) fL 94 MCH (27.0-33.0) pg 30.5 MCHC (32.0-36.0) % 32.4 RDW (11.7-14.6) % 13.9 Plt Count (130-400) 10^3/uL 226 MPV (8.0-11.0) fL 9.7 Immature Gran % See Differential Neutrophils % 71.0 Band Neutrophils % 1 Lymphocytes % 11.0 Atypical Lymphs % 3 Monocytes % 10.0 Eosinophils % 4.0 Basophils % 0.0 Nucleated RBC % (0.0-0.3) % 0.0 Absolute Neutrophils (1.2-6.7) 10^3/uL 7.53 H Absolute Lymphocytes (1.2-3.4) 10^3/uL 1.46 Absolute Monocytes (0.1-0.8) 10^3/uL 1.05 H Absolute Eosinophils (0.0-0.7) 10^3/uL 0.42 Absolute Basophils (0.0-0.2) 10^3/uL 0.00 RBC Morphology Normal PT (9.3-11.0) sec INR (0.9-1.1) APTT (21.5-31.9) sec Sodium (136-145) mmol/L 138 Potassium (3.5-5.1) mmol/L 4.3 Chloride (98-107) mmol/L 103 Carbon Dioxide (21.0-32.0) mmol/L 24.6 Anion Gap (3-11) mmol/L 10.4 BUN (7-18) mg/dL 21 H Creatinine (0.55-1.02) mg/dL 0.9 Est GFR (CKD-EPI 2020) (mL/min/1.73m2) 67.08 Glucose (74-106) mg/dL 102 Calcium (8.5-10.1) mg/dL 9.8 Magnesium (1.8-2.4) mg/dL 2.1 Total Bilirubin (0.2-1.0) mg/dL 0.8 AST (15-37) U/L 15 ALT (14-59) U/L 27 Alkaline Phosphatase (46-116) U/L 56 Troponin I (<or=60) ng/L < 50 NT-Pro-B Natriuret Pep (<300) pg/mL 150 Total Protein (6.4-8.2) g/dL 7.9 Albumin (3.4-5.0) g/dL 3.6 COVID-19 Source Nasopharynx SARS-CoV-2 (PCR) (Negative) Negative Range/Units 05/16/23 11:36 WBC (4.4-10.8) 10^3/uL RBC (3.93-5.22) 10^6/uL Hgb (11.2-15.7) g/dL Hct (36.0-46.0) % MCV (80-95) fL MCH (27.0-33.0) pg MCHC (32.0-36.0) % RDW (11.7-14.6) % Plt Count (130-400) 10^3/uL MPV (8.0-11.0) fL Immature Gran % Neutrophils % Band Neutrophils % Lymphocytes % Atypical Lymphs % Monocytes % Eosinophils % Basophils % Nucleated RBC % (0.0-0.3) % Absolute Neutrophils (1.2-6.7) 10^3/uL Absolute Lymphocytes (1.2-3.4) 10^3/uL Absolute Monocytes (0.1-0.8) 10^3/uL Absolute Eosinophils (0.0-0.7) 10^3/uL Absolute Basophils (0.0-0.2) 10^3/uL RBC Morphology PT (9.3-11.0) sec 10.3 INR (0.9-1.1) 1.0 APTT (21.5-31.9) sec 26.2 Sodium (136-145) mmol/L Potassium (3.5-5.1) mmol/L Chloride (98-107) mmol/L Carbon Dioxide (21.0-32.0) mmol/L Anion Gap (3-11) mmol/L BUN (7-18) mg/dL Creatinine (0.55-1.02) mg/dL Est GFR (CKD-EPI 2020) (mL/min/1.73m2) Glucose (74-106) mg/dL Calcium (8.5-10.1) mg/dL Magnesium (1.8-2.4) mg/dL Total Bilirubin (0.2-1.0) mg/dL AST (15-37) U/L ALT (14-59) U/L Alkaline Phosphatase (46-116) U/L Troponin I (<or=60) ng/L NT-Pro-B Natriuret Pep (<300) pg/mL Total Protein (6.4-8.2) g/dL Albumin (3.4-5.0) g/dL COVID-19 Source SARS-CoV-2 (PCR) (Negative) HPI General Mode of arrival: ambulatory. Date/Time Provider Initiated Documentation: 05/16/23 11:08. Limitations to Documentation: no limitations. Information obtained by: patient, RN notes reviewed and old records reviewed. HPI Narrative: 73-year-old female with past medical history of pulmonary emphysema, long-term anticoagulation use of Xarelto, pulmonary embolism, hypertension, temporal arteritis, degenerative joint disease, GERD with multiple allergies who is on a prednisone taper and followed by pulmonology presents with approximately 3 days of chest heaviness, increased shortness of breath, sore throat and dizziness. She has recently as noted above been placed on a prednisone taper, she also is started budesonide nebulizers and a duo nebulizer. She did use her budesonide at nebulizer prior to arrival. She denies any lower extremity swelling, fever or any other associated symptoms. Related Data Home Medications Medication Instructions Recorded Confirmed acetaminophen 325 mg tablet 650 mg PO Q6H PRN PRN 11/23/14 05/16/23 (Tylenol) Oxygen #1 ea 05/01/19 05/07/23 hydroxyzine HCl 25 mg tablet 25 mg PO BID PRN 04/08/20 05/16/23 rivaroxaban 10 mg tablet (Xarelto) 10 mg PO DAILY 09/12/22 05/16/23 amlodipine 5 mg tablet 10 mg PO DAILY #180 tabs 11/02/22 05/16/23 atorvastatin 40 mg tablet 40 mg PO DAILY #90 tabs 11/02/22 05/16/23 cyanocobalamin (vitamin B-12) 1,000 mcg PO DAILY 11/16/22 05/16/23 1,000 mcg capsule gabapentin 100 mg capsule 100 mg PO QHS 11/16/22 05/16/23 citalopram 40 mg tablet 40 mg PO DAILY #90 tabs 12/10/22 05/16/23 pantoprazole 40 mg tablet,delayed 40 mg PO DAILY #90 tabs 12/10/22 05/16/23 release ipratropium 0.5 mg-albuterol 3 mg 3 ml inhalation Q6H PRN shortness 02/01/23 05/16/23 (2.5 mg base)/3 mL nebulization of breath or wheezing #180 mL soln budesonide 0.25 mg/2 mL suspension 0.25 mg (2 mL) inhalation BID #60 04/03/23 05/16/23 for nebulization mL albuterol sulfate 90 mcg/actuation 1 puff inhalation Q6H PRN PRN 05/03/23 05/16/23 aerosol inhaler shortness of breath or wheezing #6.7 grams cholecalciferol (vitamin D3) 50 50 mcg PO DAILY 05/03/23 05/16/23 mcg (2,000 unit) capsule guaifenesin 600 mg tablet, 600 mg PO Q12H PRN congestion 05/03/23 05/16/23 extended release 12 hr losartan 50 mg tablet 50 mg PO DAILY 05/03/23 05/16/23 potassium chloride 20 mEq 20 meq PO BID 05/07/23 05/16/23 tablet,extended release prednisone 1 mg tablet 10 mg PO DAILY 05/16/23 05/16/23 Previous Rx's Medication Instructions Recorded amlodipine 5 mg tablet 10 mg PO DAILY #180 tabs 11/02/22 atorvastatin 40 mg tablet 40 mg PO DAILY #90 tabs 11/02/22 citalopram 40 mg tablet 40 mg PO DAILY #90 tabs 12/10/22 pantoprazole 40 mg tablet,delayed 40 mg PO DAILY #90 tabs 12/10/22 release ipratropium 0.5 mg-albuterol 3 mg 3 ml inhalation Q6H PRN shortness 02/01/23 (2.5 mg base)/3 mL nebulization of breath or wheezing #180 mL soln budesonide 0.25 mg/2 mL suspension 0.25 mg (2 mL) inhalation BID #60 04/03/23 for nebulization mL albuterol sulfate 90 mcg/actuation 1 puff inhalation Q6H PRN PRN 05/03/23 aerosol inhaler shortness of breath or wheezing #6.7 grams Allergies Allergy/AdvReac Type Severity Reaction Status Date / Time clarithromycin Allergy Severe HIVES Verified 05/16/23 13:43 Penicillins Allergy Severe HIVES Verified 05/16/23 13:43 tetracycline Allergy Severe HIVES, Verified 05/16/23 13:43 HALLUCINATIONS eszopiclone [Eszopiclone] Allergy Unknown pt unsure Verified 05/16/23 13:43 of reaction telithromycin [Telithromycin] Allergy Unknown pt unsure Verified 05/16/23 13:43 raloxifene HCl [From Evista] AdvReac Intermediate BODY ACHES Verified 05/16/23 13:43 sulfamethoxazole AdvReac Intermediate HEADACHE,VO Verified 05/16/23 13:43 [From Bactrim] MITING trimethoprim [From Bactrim] AdvReac Intermediate HEADACHE,VO Verified 05/16/23 13:43 MITING alendronate sodium AdvReac Mild BODY ACHE Verified 05/16/23 13:43 codeine AdvReac Mild GI UPSET Verified 05/16/23 13:43 risedronate sodium AdvReac Mild BODY ACHES Verified 05/16/23 13:43 [From Actonel] Bisphosphonates AdvReac Unknown achy joints Verified 05/16/23 13:43 hydrocodone [Hydrocodone] AdvReac Unknown vomitting Verified 05/16/23 13:43 Macrolide Antibiotics AdvReac Unknown vomitting Verified 05/16/23 13:43 and hallucinations morphine AdvReac Unknown pt. felt Verified 05/16/23 13:43 like she was floating, states she thinks she got to Sulfa (Sulfonamide AdvReac Other (See Verified 05/16/23 13:43 Antibiotics) Comment) General Stated Complaint: SOB TENA: 3 Review of Systems All systems reviewed & are unremarkable except as noted in HPI and below ENT Ears, Nose, Mouth, and Throat: Reports dizziness Cardiovascular Cardiovascular: Reports as per HPI, Reports chest pain, Denies leg edema, Reports dyspnea and Reports dyspnea on exertion Respiratory Respiratory: Reports dyspnea and Reports dyspnea on exertion Neurologic Neurologic: Reports as per HPI and Reports dizziness PFSH All Active Problems (Updated 05/16/23 @ 15:24 by Tejal Dean NP) COPD exacerbation (Acute) Chest pain (Acute) Other pulmonary embolism without acute cor pulmonale (Acute Unknown) Massive PE, Apr 08, 2022 per pt report .. [facility] [place].HE MEHUL treated with BiPAP (Acute) Bronchiectasis (Acute) Former smoker (Acute) Dyspnea on exertion (Acute) Pulmonary emphysema (Acute) Benign essential hypertension (Acute 04/10/13) Increased appetite (Acute) Fall (Acute) Anticoagulant long-term use (Acute) Xarelto.. Hx Eliquis, PE, 2019 Diarrhea (Acute) Prediabetes (Acute) 10/2022: 5.9 .. 09/2021: 5.7.. Bronchitis (Acute) Hearing loss, bilateral (Acute) Fatigue (Acute) Macrocytosis (Acute) Hypokalemia (Acute) PAD (peripheral artery disease) (Chronic) focal rt common iliac artery stenosis per CARD notes, ID in 2019 Peripheral vascular disease (Chronic) Orthostasis (Acute) Polymyalgia rheumatica (Acute 10/12/11) Temporal arteritis (Acute) Depressive disorder, not elsewhere classified (Acute 10/12/11) Lumbago (Acute 12/10/12) Esophageal reflux (Acute 12/10/12) EGD 05/25/13 KD: mild antritis and distal esophagitis; int metaplasia, no dysplasia Allergic rhinitis, unspecified (Acute 12/10/12) Neoplasm of unspecified behavior of bone, soft tissue, and skin (Acute) Leukoplakia of oral cavity (Acute) Anxiety and depression (Chronic) DJD (degenerative joint disease) (Chronic) Osteoarthritis (Chronic) GERD (gastroesophageal reflux disease) (Chronic) Medical History (Updated 05/16/23 @ 15:24 by Tejal Dean NP) Abnormal colonoscopy (11/11/15) 11/11/15 Dr Brizuela, sessile serrated adenoma, repeat 3 years. mg Adenomatous colon polyp 11/11/15 Dr Brizuela, sessile serrated adenoma, repeat 3 years. mg Benign paroxysmal vertigo (10/12/11) Colon polyps Diverticulosis 05/12/[address] Mariela Arizmendi, [facility] History of pulmonary embolism Hx of adenomatous colonic polyps (~05/2019) villous adenoma Hyperlipemia Midline cystocele (12/10/12) pt. unsure Obesity (12/10/12) Obstructive sleep apnea (adult) (pediatric) (01/19/13) Stopped BIPAP, 2019. severe, Dr. Greer, on auto Bi-Level bipap Pulmonary embolism 2019 .. Eliquis, then Xarelto.. Restless legs (01/19/13) Dr. Greer Sensorineural hearing loss, bilateral (06/03/14) Serrated polyp of colon (11/11/15) Tinnitus (06/03/14) Vertigo (06/03/14) Surgical History (Updated 09/29/22 @ 22:25 by Anjali Moe DO) Bilateral salpingectomy with oophorectomy (~12/2006) History of cardiac cath Hx of colonoscopy Hysterectomy, Laproscopic Family History Sister Cancer Breast cancer Father Heart disease Mother Heart disease Brother Heart disease [place] Social History Smoking/Tobacco Use Status: Former Tobacco Use Quit Date: 09/02/99 Tobacco: How many years used: 20 Smoking risk assessment performed?: Yes Alcohol Intake: current Alcohol Intake frequency: 0-2 drinks per day Alcohol type: wine Drug use: Never Substance use type: does not use Adopted: No Caregiver/Support person: No Foster care: No Housing: house Number of Children: 3 number of grandchildren: 4 Communication Needs: Hard of Hearing Education Level: high school current occupation: Retired Pets and animals: Yes Pets and animals: dog(s) Sexually active: No Do you think of yourself as: straight/heterosexual Current gender identity: female What is your relationship status?: How often do you talk on the phone with friends or family?: three or more times per week How often do you get together with friends or relatives?: once per week Do you belong to any clubs or organized social groups?: no Panel score (0-1 are the most socially isolated patients): 2 What type of physical activity do you participate in: none Dilia/Hoahaoism: Mormon Special dilia needs: No Seatbelt use: always Drive intox 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 She has 3 kids who live close. 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 Exam Narrative Exam Narrative: Constitutional: Alert and oriented x3. Appears stated age. Obese body habitus. Head: Normocephalic, no trauma. Eyes: Pupils PERRL, Red reflex noted, EOM's intact. Eyelids symmetrical without lesions, discharge, or swelling. ENT: Bilateral TM's WNL, External ear normal to inspection, no mastoid TTP, swelling, or erythema, Nasal turbinates WNL, no nasal discharge. Normal dentition, Posterior erythemic, uvula midline, no exudate. Chest: RRR, Normal S1, S2, distal pulses intact. Resp: Lungs diminished to auscultation bilaterally, expiratory wheezes noted in the right lower lobe Abdomen: Soft, non-distended, Normoactive bowel sounds all 4 quads. Musculoskeletal: Normal gait, 5/5 strength to all four extremities. Skin: No suspicious rashes or lesions. Capillary refill less than 2 sec. Neurologic: Cranial nerves II-XII intact. Alert and oriented x 3. Motor: No deficits noted. Sensory: Intact bilaterally all 4 extremities. Reflexes: DTR's intact bilaterally.. Hematologic/Lymphatic: No ecchymosis, no lymphadenopathy. Course Vital Signs Vital signs: Vital Signs Temperature 36.8 C 05/16/23 11:11 Pulse 63 05/16/23 11:11 Respiratory Rate 20 05/16/23 11:11 Blood Pressure 171/57 H 05/16/23 11:11 Pulse Oximetry 99 05/16/23 11:11 Temperature 36.8 C 05/16/23 11:11 Pulse 63 05/16/23 11:11 Respiratory Rate 20 05/16/23 11:11 Respiratory Effort Short of Breath 05/16/23 11:25 Blood Pressure 171/57 H 05/16/23 11:11 Blood Pressure Position Sitting 05/16/23 11:11 Pulse Oximetry 99 05/16/23 11:11 Oxygen Delivery Method Room Air 05/16/23 11:11 Oxygen Flow Rate 0 05/16/23 11:11 Pain Level 0 05/16/23 11:11 PAWSS Have you Been Recently Intoxicated or Drunk Within the Last 30 days?: No Have you Ever Experienced Previous Episodes of Alcohol Withdrawal?: No Have you ever Experienced Withdrawal Seizures?: No Have you ever Experienced Delirium Tremens(DT)s?: No Have you ever undergone Alcohol Rehabilitation Treatment (i.e, inpt ot outpatient treatment programs)?: No Have you ever Experienced Blackouts?: No Have you ever Combined Alcohol with other Downers within the last 90 days?: No Have you ever Combined Alcohol with any other Substance of Abuse during the last 90 days?: No Positive Blood Alcohol level on Presentation? [PCS.BAL]: No Evidence of Increased Autonomic Activity (i.e. HR>120, tremor, sweating, agitation, nausea)?: No Result: 0
--- NOTE | 2023-05-16 11:31 | DI.CT_ITS ---
Exam(s) CT CHEST PE CTA EXAM: CT CHEST PE CTA CLINICAL HISTORY: SOb, Chest heaviness, hx of PE. TECHNIQUE: Imaging Protocol: Axial CT angiography was performed with multi-slice acquisition and mu lti-planar reconstructions as well as axial, coronal and sagittal MIP reconstructions. CONTRAST MATERIAL: Intravenous: Omnipaque 350 Contrast volume:100 ml COMPARISON: CT CT CHEST PE CTA from 09/12/2022 FINDINGS: Pulmonary Arteries: No evidence of filling defect to suggest pulmonary emboli. Tracheobronchial tree: Patent where visualized. Mediastinum and Felipa: No dominant adenopathy or fluid collection. Pulmonary parenchyma: Mild emphysematous and fibrotic changes. Stable area of scarring right lung ap ex. No consolidation or dominant measurable mass. Expiratory changes posteriorly. No evidence of infiltrate. Pleura: No effusion or pneumothorax. Heart: The heart is not dilated. No coronary artery calcifications are seen. Aorta: Thoracic aorta non-dilated. No aneurysm. No dissection. Mild atherosclerotic changes. Upper abdomen: Unremarkable. Bones: Degenerative changes. No compression fractures. Tubes, Catheters, and Lines: None IMPRESSION: No evidence of pulmonary embolism. No acute abnormality in the chest. RADIATION DOSE DELIVERED: 453.74mGy.cm Total DLP DATA REPOSITORY: All CT scans at this facility are submitted to the National Radiology Data Registry (NRDR) Dose Index Registry (DIR) with the [employer] (ACR). RADIATION OPTIMIZATION: All CT scans at this facility use at least one of these dose optimization te chniques: automated exposure control; mA and/or kV adjustment per patient size (includes targeted exa ms where dose is matched to clinical indication); or iterative reconstruction.
[2023-05-16 11:34] LABS: Source Nasopharynx
[2023-05-16] MEDS: Aspirin 81 MG CHEW 324 MG CH (11:39)
[2023-05-16 11:44] LABS: Abs Immature Grans 0.35 10^3/uL (0.0-0.06); HCT 45.1 % (36.0-46.0); HGB 14.6 g/dL (11.2-15.7); MCH 30.5 pg (27.0-33.0); MCHC 32.4 % (32.0-36.0); MCV 94 fL (80-95); MPV 9.7 fL (8.0-11.0); RBC 4.79 10^6/uL (3.93-5.22); RDW 13.9 % (11.7-14.6); RDW-SD 48.6 fL; WBC 10.46 10^3/uL (4.4-10.8)
[2023-05-16 11:58] LABS: PTT Activated 26.2 sec (21.5-31.9); Prothrombin Time 10.3 sec (9.3-11.0)
[2023-05-16 12:01] LABS: Absolute Eosinophil Count 0.42 10^3/uL (0.0-0.7); Absolute Lymphocyte Count 1.46 10^3/uL (1.2-3.4); Absolute Monocyte Count 1.05 10^3/uL (0.1-0.8); Absolute Neutrophil Count 7.53 10^3/uL (1.2-6.7); Atypical Lymphocytes % 3; Bands % 1; Diff Comment Manual Differential; Platelet Count 226 10^3/uL (130-400); RBC Morphology Normal
[2023-05-16 12:09] LABS: COVID-19 PCR Negative (Negative)
[2023-05-16 12:13] LABS: ALT 27 U/L (14-59); AST 15 U/L (15-37); Albumin 3.6 g/dL (3.4-5.0); Alkaline Phosphatase 56 U/L (46-116); Anion Gap 10.4 mmol/L (3-11); BUN 21 mg/dL (7-18); Bilirubin, Total 0.8 mg/dL (0.2-1.0); CO2 24.6 mmol/L (21.0-32.0); CREATININE 0.9 mg/dL (0.55-1.02); Calcium 9.8 mg/dL (8.5-10.1); Chloride 103 mmol/L (98-107); Estimated GFR 67.08 (mL/min/1.73m2); Glucose 102 mg/dL (74-106); Magnesium 2.1 mg/dL (1.8-2.4); NT-proBNP 150 pg/mL (<300); Potassium 4.3 mmol/L (3.5-5.1); Sodium 138 mmol/L (136-145); Total Protein 7.9 g/dL (6.4-8.2); Troponin I < 50 ng/L (<or=60)
[2023-05-16] MEDS: Omnipaque 350 MG/ML 500 ML BTL-Imaging package 100 ML IJ (13:13)
[2023-05-16] MEDS: Normal Saline - Diluent 50 ML VIAL IJ (13:15)
--- NOTE | 2023-05-16 13:30 | RT.EKG_ITS ---
APPROVED REPORT Exam: Resting ECG Reason for Exam: Repeat, SOB, chest heaviness Patient Location: E HR:71 bpm ECG Measurements Heart Rate 71 AXIS NE 197 P 64 QRSd 85 QRS 15 QT 401 T -51 QTc 436 Conclusion Sinus rhythm...normal P axis, V-rate 60- 99 Low voltage, precordial leads...precordial leads <1.0mV Physician: no stemi, minimal unchanged lateral depressions. unchanged from prior ekg's
[2023-05-16 13:36] VITALS: BP 154/73; PULSE 78; RESP 28; O2SAT 92
[2023-05-16] MEDS: Albuterol/Ipratropium 3 ML UPD VIAL UPD (14:05)
[2023-05-16 15:04] LABS: Troponin I < 50 ng/L (<or=60)
--- NOTE | 2023-05-16 15:23 | NUR.NOTE ---
Nursing Note:referral to dr flores
[2023-05-16 15:32] VITALS: BP 113/96
== END 2023-05-16 16:34 | disposition home or self-care (01) ==
PROVIDERS: Emergency Provider Registered Nurse Emergency; PCP Student in an Organized Health Care Education/Training Program
DX: J44.1 Chronic obstructive pulmonary disease with (acute) exacerbation (principal); R42 Dizziness and giddiness; R07.9 Chest pain, unspecified; I10 Essential (primary) hypertension; Z79.01 Long term (current) use of anticoagulants; Z86.711 Personal history of pulmonary embolism; Z87.891 Personal history of nicotine dependence
CPT/HCPCS: 36415; 71275; 80053; 87635; 93005; 94640; 99285; 83735; 83880; 84484; 85025; 85610; 85730; 93010; 99284; J7620

== ENCOUNTER 2023-05-20 04:48 | Outpatient (CLI) | payer MEDICARE, SELFPAY ==
[2023-05-20] MEDS: Levalbuterol HFA 15 GM INH 4 PUFF IH (14:07)
[2023-05-20] MEDS: Inhaler, Assist Device 1 EACH MC (14:07)
--- NOTE | 2023-05-21 16:38 | W.PFT ---
Date of service: 05/20/23 Time of Service: 13:02 Pulmonary Function Test Result Indications: Bronchiectasis Interpretation Spirometry: There is no airflow limitation. No bronchodilator response. Lung Volumes: Normal lung volumes Diffusion Capacity: Decreased diffusion Airway Pressure: Normal airways resistance Impression Isolated diffusion deficit. This could represent ILD, emphysema or pulmonary hypertension. Clinical Correlation therefore is recommended.
== END 2023-05-20 04:49 | disposition home or self-care (01) ==
LOC: RT 04:48
PROVIDERS: PCP Student in an Organized Health Care Education/Training Program; Visit Provider Student in an Organized Health Care Education/Training Program
DX: J47.1 Bronchiectasis with (acute) exacerbation (principal)
CPT/HCPCS: 94060; 94726; 94729

== ENCOUNTER 2023-05-21 12:29 | Outpatient (CLI) | payer MEDICARE, SELFPAY ==
[2023-05-21 10:18] LABS: Anion Gap 10.9 mmol/L (3-11); BUN 13 mg/dL (7-18); CO2 23.1 mmol/L (21.0-32.0); Calcium 9.3 mg/dL (8.5-10.1); Chloride 103 mmol/L (98-107); Estimated GFR 59.12 (mL/min/1.73m2); Glucose 103 mg/dL (74-106); Potassium 3.9 mmol/L (3.5-5.1); Sodium 137 mmol/L (136-145)
[2023-05-21 10:54] LABS: NT-proBNP 374 pg/mL (<300)
[2023-05-22 09:40] LABS: Lyme Ab w Rflx to Lyme Confirm Negative (Negative)
[2023-05-23 15:21] LABS: Anaplasma phagocytophilum Negative (Negative); B. miyamotoi PCR Negative (Negative); Babesia divergens/MO-1 Negative (Negative); Babesia duncani Negative (Negative); Babesia microti Negative (Negative); Ehrlichia chaffeensis Negative (Negative); Ehrlichia ewingii/canis Negative (Negative); Ehrlichia muris eauclairensis Negative (Negative)
== END 2023-05-21 12:30 | disposition home or self-care (01) ==
LOC: LBO 12:30
PROVIDERS: PCP Student in an Organized Health Care Education/Training Program; Visit Provider Student in an Organized Health Care Education/Training Program
DX: G47.33 Obstructive sleep apnea (adult) (pediatric) (principal); I26.99 Other pulmonary embolism without acute cor pulmonale; I50.9 Heart failure, unspecified; K21.9 Gastro-esophageal reflux disease without esophagitis; R06.09 Other forms of dyspnea
CPT/HCPCS: 36415; 80048; 87798; 83735; 83880; 86618

== ENCOUNTER → 2023-05-27 01:34 | Outpatient (CLI) | payer MEDICARE, SELFPAY ==
--- NOTE | 2023-05-27 08:00 | DI.CT_ITS ---
Exam(s) CT CHEST HIGH RESOLUTION EXAM: CT CHEST HIGH RESOLUTION CLINICAL HISTORY: abnormal chest CT,pulmonary fibrosis,j84.10,r93.89. TECHNIQUE: Multi planar reconstructions were performed. CONTRAST MATERIAL: None COMPARISON: CT CT CHEST PE CTA from 05/16/2023 FINDINGS: CHEST: LUNGS: Scarring in the right lung apex again noted. The appearance of the lung richter exhibits minim al change from 05/16/2023 with persistent interstitial fibrotic changes. No new confluent infiltrate s nor pleural effusions. No new findings in the trachea and mainstem bronchi. MEDIASTINUM: There is no obvious hilar nor mediastinal adenopathy. Visualized thyroid unremarkable.No obvious axillary adenopathy CARDIAC: Heart size is normal. There is no pericardial effusion.Caliber of the thoracic aorta is wit hin normal limits. VISUALIZED UPPER ABDOMEN:No adrenal masses. No splenomegaly. OSSEOUS: No significant osseous lesions.No fractures.. IMPRESSION: 1. Minimal change from 05/16/2023. 2. Chronic interstitial changes including interstitial fibrosis. 3. No new confluent infiltrates and no pleural effusions. No new significant intrathoracic adenopath y. RADIATION DOSE DELIVERED: 744.15mGy.cm Total DLP DATA REPOSITORY: All CT scans at this facility are submitted to the National Radiology Data Registry (NRDR) Dose Index Registry (DIR) with the [employer] (ACR). RADIATION OPTIMIZATION: All CT scans at this facility use at least one of these dose optimization te chniques: automated exposure control; mA and/or kV adjustment per patient size (includes targeted exa ms where dose is matched to clinical indication); or iterative reconstruction.
== END ==
PROVIDERS: PCP Student in an Organized Health Care Education/Training Program; Visit Provider Student in an Organized Health Care Education/Training Program
DX: J84.10 Pulmonary fibrosis, unspecified (principal); R93.89 Abnormal findings on diagnostic imaging of other specified body structures
CPT/HCPCS: 71250

== ENCOUNTER → 2023-06-14 03:06 | Outpatient (CLI) | payer MEDICARE, SELFPAY ==
--- NOTE | 2023-06-14 10:30 | DI.US_ITS ---
APPROVED REPORT EXAM: Comprehensive 2D, Doppler, and color-flow Echocardiogram Patient Location: Out-Patient [employer] Operations Officer: Mackenzie Reddy RDCS (AE) Indications: Dyspnea on exertion Other Information Study Quality: Adequate Conclusion Normal left ventricular wall thickness and chamber size. Ejection fraction is 60 to 65%. Wall motio n is normal Normal right ventricular size and systolic function Both atria are normal in size The aortic valve is trileaflet and mildly sclerotic with trace regurgitation Normal mitral valve with mild regurgitation Normal tricuspid valve with trace to mild regurgitation. Estimated right ventricular systolic pressu re is 38 mmHg Borderline dilated ascending aorta 3.39 cm Wall motion Left Ventricle The left ventricle is normal size. The left ventricular systolic function is normal. The left ventric ular ejection fraction is within the normal range. There is normal left ventricular wall thickness. T here is normal LV segmental wall motion. There is no ventricular septal defect visualized. LVEF is 60 -65%. Right Ventricle The right ventricle is normal size. The right ventricular systolic function is normal. Atria The left atrium size is normal. The right atrium size is normal. The interatrial septum is intact wit h no evidence for an atrial septal defect. Aortic Valve The Aortic valve is mildly sclerotic. Aortic valve is trileaflet. There is no aortic valvular stenosi s. Trace aortic regurgitation. Mitral Valve The mitral valve is normal in structure. No evidence of mitral valve stenosis. Mild mitral regurgitat ion. Tricuspid Valve The tricuspid valve is normal in structure. There is no tricuspid valve stenosis. Trace to mild tricu spid regurgitation. The RVSP is 38.3mmHg. Pulmonic Valve The pulmonary valve is normal in structure. There is no pulmonic valvular stenosis. Trace pulmonic re gurgitation. Great Vessels The aortic root is normal in size. The ascending aorta is mildly dilated. Aortic arch is not well vis ualized. IVC is normal in size and collapses >50% with inspiration. Pericardium There is no pericardial effusion. 2D Dimensions IVSD d PLAX 0.77 cm F: 0.6-1.0 Ao Root d 3.03 cm F: 2.7 - 3.3 LVPW d PLAX 0.82 cm F: 0.6 - 1.0 Ao Asc Diam d 3.39 cm F: 2.3 - 3.1 LVID d PLAX 4.91 cm F: 3.8 - 5.2 LVDs 3.32 cm F: 2.2 - 3.5 LV EF Teichholz 60.5 % FS 32.39 % LV EDV (Teich) 113.1 mL LV ESV (Teich) 44.7 mL M-Mode TAPSE 2.67 cm (M/F) >1.7 Auto EF LV EDV A4C 89.2 mL LV EDV A2C 113.7 mL LV EDV BP 100.4 mL LV ESV A4C 32.2 mL LV ESV A2C 39.8 mL LV ESV BP 35.5 mL LVEF(%) A4C 64.0 % LVEF(%) A2C 65.0 % LVEF(%) BP 64.7 % LV SV A4C 57.1 ml LV SV A2C 73.9 ml LV SV BP 65.0 ml LV CO A4C 3.2 L/min LV CO A2C 3.9 L/min LV CO BP 3.5 L/min HR A4C 55.54 BPM HR A2C 52.70 BPM LV EDV Index (BP) LA Volume LA Length A4C 5.4 cm LA Length A2C 5.1 cm LA Area A4C s 18.09 cm2 LA Area A2C s 16.87 cm2 LA Vol A4C A-L 51.12 mL LA Vol A2C A-L 47.15 mL LA Vol Biplane A-L 50.6 mL LA Vol/BSA A4C A-L LA Vol/BSA A2C A-L LA Vol/BSA BP A-L 25.8 mL/m2 LA Vol A4C MOD 47.9 mL LA Vol A2C MOD 43.8 mL LA Vol BP MOD 47.1 mL RA Volume RA Area A4C 10.2 cm2 RA ESV A4C (A-L) 20.5mL RA Vol/BSA A4C A-L RA Length A4C 4.3 cm RA ESV A4C (MOD) 20.1mL LV Diastology MV E' medial 0.087 (>0.07 m/s) MV E Vmax 1.34 (0.4-1.3 m/s) MV E/E' MED 15.39 (<14) MV A Vmax 1.15 (0.4-1.3 m/s) MV E' lateral 0.075 (>0.1 m/s) E/A Ratio 1.2 MV E/E' LAT 17.83 (<14) MV E' Average 0.081 m/s MV E/E'(average) 16.52 Aortic Valve AoV Vmax 1.59 m/s LVOT Vmax 1.39 m/s AoV Peak Grad 10.1 mmHg LVOT Peak Grad 7.8 mmHg AoV Area (Vmax) 2.41 cm2 LVOT VTI 0.333 m AoV VTI 0.388 m LVOT Mean Grad 4.1 mmHg AoV Mean Dave. 1.04 m/s LVOT SV 91.73 mL AoV Mean Grad 5.0 mmHg LVOT Diam s 1.85 cm AoV Area (VTI) 2.36 cm2 Velocity Ratio 0.87 Mitral Valve MV DT 226 (160-240 msec) MV Vmax TIPS 1.38 m/s MV Mean Grad 2.6 (<2mmHg) MV VTI 0.474 m Pulmonary Valve PV Vmax 1.22 (0.5-1.5 m/s) RVOT Vmax 0.67 m/s PV Peak Grad 6.0 mmHg RVOT Peak Gr. 1.8 mmHg PV Mean Dave 0.71 m/s RVOT VTI 0.178 m PV Mean Grad 2.5 mmHg RVOT Mean Gr. 1.0 mmHg Tricuspid Valve RA Pressure 3.00 mmHg TR Vmax 2.97 m/s TV S' 0.14 m/s TR Peak Grad 35.2 mmHg RVSP (TR) 38.3 mmHg
== END ==
PROVIDERS: PCP Student in an Organized Health Care Education/Training Program; Visit Provider Student in an Organized Health Care Education/Training Program
DX: R06.00 Dyspnea, unspecified (principal)
CPT/HCPCS: 93306

== ENCOUNTER 2023-07-08 01:16 | Outpatient (CLI) | payer MEDICARE, SELFPAY ==
[2023-07-08 13:36] LABS: ESR 17 mm/hr (0-30)
[2023-07-08 23:04] LABS: Rheumatoid Factor <8.6 IU/mL (<12.0)
[2023-07-09 09:38] LABS: Cyclic Citrullinated Peptide <2.5 U/mL (<5.0)
[2023-07-09 10:59] LABS: dsDNA Ab, IgG <12.3 IU/mL (<30.0)
[2023-07-09 11:02] LABS: SS-A Antibody 1.9 Units (<20.0)
[2023-07-09 11:09] LABS: SS-B (La) Ab, IgG 3.5 Units (<20.0)
[2023-07-09 13:46] LABS: ANA Interpretation Positive (Negative); ANA Titer Pattern 1:640 Homogeneous
== END 2023-07-08 01:17 | disposition home or self-care (01) ==
PROVIDERS: PCP Student in an Organized Health Care Education/Training Program; Visit Provider Physician Assistant Surgical
DX: J84.9 Interstitial pulmonary disease, unspecified (principal); M31.6 Other giant cell arteritis; Z51.81 Encounter for therapeutic drug level monitoring
CPT/HCPCS: 36415; 85652; 86200; 86038; 86140; 86225; 86235; 86431

== ENCOUNTER → 2023-07-11 13:37 | Outpatient (BNVA) | payer MEDICARE, SELFPAY | PROVIDERS: PCP Student in an Organized Health Care Education/Training Program; Referring Provider Physician Assistant Surgical; Visit Provider Psychiatry & Neurology Neurology | DX: R20.0 Anesthesia of skin (principal); I10 Essential (primary) hypertension | CPT/HCPCS: 99215 ==

== ENCOUNTER → 2023-07-31 02:17 | Outpatient (CLI) | payer MEDICARE, SELFPAY ==
--- NOTE | 2023-07-31 08:00 | DI.MRI_ITS ---
Exam(s) MR BRAIN WO/W EXAM: MR BRAIN WO/W CLINICAL HISTORY: numb L chin,lt facial numbness,R20.0. TECHNIQUE: Multiplanar multisequence MRI of the brain and internal auditory canals was performed. CONTRAST MATERIAL: IV Contrast: 19 mL of Dotarem contrast administered. COMPARISON: CT CT HEAD WO from 01/26/2021 FINDINGS: The examination is limited due to patient motion artifact. VENTRICLES AND EXTRA AXIAL SPACES: Normal in size and morphology for the patient's age. HEMORRHAGE: None. CEREBRAL PARENCHYMA: No focus of restricted diffusion to suggest acute infarct. No space-occupying le martin identified. There are areas of increased signal seen on the T2 weighted images and FLAIR images in the white matter most consistent with small vessel ischemic disease. There are small lacune seen in the cerebellum. MIDLINE SHIFT: None. BRAINSTEM/CEREBELLUM: Normal. CALVARIUM: Normal. ENHANCEMENT: No suspicious enhancement identified. VISUALIZED PARANASAL SINUSES/MASTOIDS: Clear. [place]: Normal flow void. PITUITARY GLAND: Unremarkable. IAC/CP ANGLE: The internal auditory canals are within normal limits. The cerebellar pontine angles ar e unremarkable. No enhancing lesions are seen. Visualized portion of the facial nerves appear within normal limits. OTHER FINDINGS: None. IMPRESSION: 1. Age-related cerebral atrophy and small vessel ischemic disease. 2. No evidence of an intracranial mass or enhancing lesion. DATA REPOSITORY:
[2023-07-31] MEDS: Normal Saline Flush 10 ML SYR IVP (13:13)
[2023-07-31] MEDS: Gadoterate meglumine 20 ML SYRINGE 19 ML IVP (13:14)
== END ==
PROVIDERS: PCP Student in an Organized Health Care Education/Training Program; Visit Provider Psychiatry & Neurology Neurology
DX: R20.0 Anesthesia of skin (principal); I67.82 Cerebral ischemia
CPT/HCPCS: 70553

== ENCOUNTER → 2023-10-07 08:42 | Outpatient (BNVA) | payer MEDICARE, SELFPAY | PROVIDERS: PCP Student in an Organized Health Care Education/Training Program; Referring Provider Student in an Organized Health Care Education/Training Program; Visit Provider Psychiatry & Neurology Neurology | DX: R20.0 Anesthesia of skin (principal) | CPT/HCPCS: 99213 ==

== ENCOUNTER 2024-01-14 10:06 | Outpatient (REF) | payer MEDICARE, SELFPAY ==
--- NOTE | 2024-01-14 09:00 | ORMUBX_PTH ---
PATIENT: Tena Nickerson LOC: [facility] U#:[id number] AGE/SX: 73/F ROOM: RE01/14/[address]: Jon Rock MD : 1950 BED: DIS: 01/14/2024 SPEC #: [id number] RECD: 01/14/24 17:19 STATUS: ALEN RETereso #: [id number] JOSHUA: 01/14/24 09:[address]: Jon Rock DEPT: Surgical Specimen RECD BY: Veena Gresham ENTERED: 01/14/24 17:25 SP TYPE: ORMUBX OTHR DR: Anjali Moe DO Tissues: 1 - MUCOSA, NOS Procedures: GROSS AND MICRO LEVEL 4 Comments: [id number]
== END 2024-01-14 10:07 | disposition home or self-care (01) ==
LOC: LBN 10:06
PROVIDERS: PCP Student in an Organized Health Care Education/Training Program; Visit Provider Otolaryngology
DX: R22.0 Localized swelling, mass and lump, head (principal); C44.329 Squamous cell carcinoma of skin of other parts of face
CPT/HCPCS: 88305

== ENCOUNTER 2024-01-14 10:31 | Outpatient (CLI) | payer MEDICARE, SELFPAY ==
[2024-01-14 10:28] LABS: CREATININE 0.9 mg/dL (0.55-1.02); Estimated GFR 67.08 (mL/min/1.73m2)
== END 2024-01-14 10:32 | disposition home or self-care (01) ==
LOC: LBO 10:31
PROVIDERS: PCP Student in an Organized Health Care Education/Training Program; Visit Provider Otolaryngology
DX: R22.0 Localized swelling, mass and lump, head (principal)
CPT/HCPCS: 36415; 82565

== ENCOUNTER → 2024-01-17 01:20 | Outpatient (CLI) | payer MEDICARE, SELFPAY ==
[2024-01-17] MEDS: Normal Saline - Diluent 50 ML VIAL IJ (08:29)
[2024-01-17] MEDS: Omnipaque 350 MG/ML 500 ML BTL-Imaging package 120 ML IJ (08:30)
--- NOTE | 2024-01-17 08:35 | DI.CT_ITS ---
Exam(s) CT HEAD NECK W EXAM: CT HEAD NECK W CLINICAL HISTORY: Left buccal mass,R22.0. TECHNIQUE: Imaging Protocol: Axial computed tomography images with coronal and sagittal reformatted images were created and reviewed. CONTRAST MATERIAL: Intravenous: Omnipaque 350 contrast volume:120 mL COMPARISON: CT CT HEAD WO from 01/26/2021 FINDINGS: Ventricles and Extra axial spaces: Normal in size and morphology for the patient's age. Hemorrhage: None. Cerebral parenchyma: There are old lacunar infarcts seen in the left and right cerebellum. There are areas of decreased attenuation in the white matter consistent with chronic microvascular ischemic di sease. Enhancement: No suspicious enhancement. [place]: Unremarkable. Midline shift: None. Brainstem/Cerebellum: Normal. Calvarium: Normal. Visualized Paranasal sinuses/Mastoids: Clear. Orbits and orbital soft tissues: Within normal limits. Visualized paranasal sinuses: Within normal limits. Pharynx : Please see below under bones. Larynx: Within normal limits. Retropharyngeal space: Within normal limits. Parotids/submandibular: Within normal limits. Thyroid gland: Within normal limits. Lymphadenopathy: There is scattered lymph nodes seen along the level one to level three all measurin g less than 8 mm in short axis diameter which are physiologic in nature. Trachea: Within normal limits. Lung apices: Mild centrilobular emphysematous changes are present. Bones: There are roast of changes seen of the ramus, coronoid process and posterior body of the left mandible with a surrounding enhancing mass which displaces and appears to involve both the left michelet ter muscle and the adjacent pterygoid muscles. The enhancing component measures at least 4.1 x 2.1 c m. There is no involvement of the adjacent parotid or submandibular glands. There is a subtle 1.7 x 1.4 cm enhancing nodule in the left tonsils. Carotids/Jugular: Within normal limits. Atherosclerotic calcification is present. Soft tissues: Within normal limits. IMPRESSION: 1. 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 Differential considerations include sarcoma, osteomyelitis or metastatic disease. A neop lastic process with secondary involvement of the mandible should also be considered. There is a ques tion of an enhancing lesion involving the left tonsil and carcinoma should be considered. 2. No evidence of an intracranial mass or enhancing lesion. 3. Age-related cerebral atrophy and chronic microvascular ischemic disease. RADIATION DOSE DELIVERED: 2,060.41mGy.cm Total DLP DATA REPOSITORY: All CT scans at this facility are submitted to the National Radiology Data Registry (NRDR) Dose Index Registry (DIR) with the [employer] (ACR). RADIATION OPTIMIZATION: All CT scans at this facility use at least one of these dose optimization te chniques: automated exposure control; mA and/or kV adjustment per patient size (includes targeted exa ms where dose is matched to clinical indication); or iterative reconstruction.
== END ==
PROVIDERS: PCP Student in an Organized Health Care Education/Training Program; Visit Provider Otolaryngology
DX: I67.82 Cerebral ischemia (principal)
CPT/HCPCS: 70491; 70460

== ENCOUNTER 2024-03-23 01:34 | Outpatient (RCR) | payer MEDICARE, SELFPAY ==
[2024-03-23] MEDS: Normal Saline Flush 10 ML SYR IVP (08:35)
[2024-03-23 08:47] LABS: Abs Immature Grans 0.09 10^3/uL (0.0-0.06); Absolute Basophil Count 0.03 10^3/uL (0.0-0.2); Absolute Eosinophil Count 0.49 10^3/uL (0.0-0.7); Absolute Lymphocyte Count 1.43 10^3/uL (1.2-3.4); Absolute Monocyte Count 1.17 10^3/uL (0.1-0.8); Absolute Neutrophil Count 6.63 10^3/uL (1.2-6.7); Basophils % 0.3 %; HCT 38.6 % (36.0-46.0); HGB 12.7 g/dL (11.2-15.7); Immature Grans % 0.9 %; Lymphocytes % 14.5 %; MCH 30.4 pg (27.0-33.0); MCHC 32.9 % (32.0-36.0); MCV 92 fL (80-95); MPV 11.3 fL (8.0-11.0); Monocytes % 11.9 %; Neutrophils % 67.4 %; Platelet Count 182 10^3/uL (130-400); RBC 4.18 10^6/uL (3.93-5.22); RDW-SD 47.4 fL; WBC 9.84 10^3/uL (4.4-10.8)
[2024-03-23 09:07] LABS: ALT 22 U/L (14-59); AST 27 U/L (15-37); Alkaline Phosphatase 60 U/L (46-116); Anion Gap 12.7 mmol/L (3-11); BUN 20 mg/dL (7-18); Bilirubin, Total 0.72 mg/dL (0.2-1.0); CO2 24.3 mmol/L (21.0-32.0); CREATININE 1.1 mg/dL (0.55-1.02); Calcium 9.2 mg/dL (8.5-10.1); Chloride 105 mmol/L (98-107); Estimated GFR 52.73 (mL/min/1.73m2); Glucose 108 mg/dL (74-106); Magnesium 1.8 mg/dL (1.8-2.4); Potassium 3.4 mmol/L (3.5-5.1); Sodium 142 mmol/L (136-145); Total Protein 7.4 g/dL (6.4-8.2)
== END 2024-04-01 23:59 | disposition home or self-care (01) ==
LOC: INF 01:34
PROVIDERS: PCP Student in an Organized Health Care Education/Training Program; Visit Provider Nurse Practitioner
DX: C06.9 Malignant neoplasm of mouth, unspecified (principal); Z45.2 Encounter for adjustment and management of vascular access device
CPT/HCPCS: 36591; 80053; 83735; 85025

== ENCOUNTER 2024-03-26 05:41 | Emergency (ER) | payer MEDICARE, SELFPAY ==
[2024-03-26] VITALS (44 sets, daily range): BP systolic 145–181; BP diastolic 40–85; PULSE 61–81; RESP 12–20; TEMP 36.4–36.5; O2SAT 4–100
--- NOTE | 2024-03-26 05:30 | RT.EKG_ITS ---
APPROVED REPORT Exam: Resting ECG Reason for Exam: SOB Patient Location: E HR:69 bpm ECG Measurements Heart Rate 69 AXIS AL 192 P 41 QRSd 95 QRS 25 QT 390 T -57 QTc 419 Conclusion Sinus rhythm...normal P axis, V-rate 60- 99 Low voltage, precordial leads...precordial leads <1.0mV Minimal ST depression, diffuse leads...ST <-0.03mV, ant/lat/inf Physician: No significant ST elevations. Minimal lateral depressions. No STEMI. Slight change from prior EKG on 05/16/2023
--- NOTE | 2024-03-26 05:45 | DI.RAD_ITS ---
Exam(s) XR PORTABLE CHEST AP EXAM: XR PORTABLE CHEST AP CLINICAL HISTORY: SOB, hypoxic TECHNIQUE: 2D digital imaging was performed of the chest. One image was obtained. An AP view was ob tained. COMPARISON: CR XR PORTABLE CHEST AP from 09/12/2022 FINDINGS: MEDIASTINUM: Normal. HEART: Normal. PULMONARY VASCULATURE: There is mild pulmonary venous congestion. LUNGS: No focal consolidating infiltrates. Possible atelectatic changes in the lung bases. PLEURAL SPACE: No pleural effusion or pneumothorax. BONE:Within normal limits for the patient's age. OTHER FINDINGS:There is air beneath the right hemidiaphragm. The tip of the patient's endoleak centr al venous catheter is in good position in the superior vena cava. IMPRESSION: 1. There does appear to be area beneath the right hemidiaphragm. CT scan of the abdomen and pelvis i s requested for further evaluation. 2. Pulmonary venous congestion. No focal consolidating infiltrates. DATA REPOSITORY: RADIATION DOSE DELIVERED:
--- NOTE | 2024-03-26 06:10 | W.ED.GENAD ---
Discharge Plan Discharge Details Chief Complaint: SOB Clinical Impression: Hypoxemia, Pneumonia Primary Care Provider: Anjali Moe ED Provider: Vicente Sheldon Home Meds and New Rx's Prescriptions: No Action Xarelto 10 mg tablet 10 mg PO DAILY Qty: 90 1RF citalopram 40 mg tablet 40 mg PO DAILY Qty: 90 3RF cholecalciferol (vitamin D3) 50 mcg (2,000 unit) capsule 50 mcg PO DAILY Qty: 90 3RF cyanocobalamin (vitamin B-12) 1,000 mcg capsule 1,000 mcg PO DAILY Qty: 90 3RF losartan 50 mg tablet 50 mg PO DAILY Patient Comments: [facility] Vascular note 04/18/23 Dr. Monreal.HE chlorhexidine gluconate [Paroex Oral Rinse] 0.12 % mouthwash 15 ml mucous membrane BID Qty: 300 0RF Rx Instructions: Trial mouth cleaning rinse x1 week; STOP if it stings hydroxyzine HCl 25 mg tablet 25 mg PO BID PRN (Reason: Worry, Anxiety, Nausea) Qty: 30 1RF Rx Instructions: Trial for anxiety albuterol sulfate 90 mcg/actuation HFA aerosol inhaler 1 puff INHALATION Q6H PRN PRN (Reason: shortness of breath or wheezing) Qty: 6.7 1RF Rx Instructions: as best dispensed per insurance budesonide 0.25 mg/2 mL suspension for nebulization 0.25 mg inhalation BID Qty: 60 6RF budesonide-formoterol [Symbicort] 160-4.5 mcg/actuation HFA aerosol inhaler 2 puff inhalation BID Qty: 10.2 6RF gabapentin 100 mg capsule 100 mg PO QHS Qty: 90 3RF acetaminophen [Tylenol] 325 MG tablet 650 mg PO Q6H PRN PRN prednisone 5 mg tablet 5 mg PO DAILY Rx Instructions: 09/20/23 Alternate 5 mg with 4 mg every other day for approximately 1 weeks and then decrease to 4 mg. Keep there for 3 weeks and thy try try decreasing by alternating 4 mg with 3 mg every other day. amlodipine 5 mg tablet 10 mg PO DAILY Qty: 180 3RF atorvastatin 40 mg tablet 40 mg PO DAILY Qty: 90 3RF ipratropium-albuterol 0.5 mg-3 mg(2.5 mg base)/3 mL solution for nebulization 3 ml inhalation Q6H PRN (Reason: shortness of breath or wheezing) Qty: 180 1RF pantoprazole 40 mg tablet,delayed release (DR/EC) 40 mg PO DAILY Qty: 90 3RF HPI General Date/Time Provider Initiated Documentation: 03/26/24 05:44. 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 Patient states symptoms started this evening, she denies any pleuritic chest pain but does admit to a cough. She denies any vomiting or diarrhea. She still eats her food and cuts it up in small pieces. She denies any fever or chills. She denies any headache or neck pain. She denies any abdominal pain. She does admit to persistent leaking around her gastric tube site since it was placed last week. She admits to very mild tenderness in that area. No other complaints. No other modifying factors. She states that she has been taking her medications as directed. Related Data Home Medications ?Medication ?Instructions ?Recorded ?Confirmed acetaminophen 325 mg tablet 650 mg PO Q6H PRN PRN 11/23/14 03/26/24 (Tylenol) losartan 50 mg tablet 50 mg PO DAILY 05/03/23 03/26/24 rivaroxaban 10 mg tablet (Xarelto) 10 mg PO DAILY #90 tabs 08/20/23 03/26/24 cholecalciferol (vitamin D3) 50 50 mcg PO DAILY #90 caps 09/03/23 03/26/24 mcg (2,000 unit) capsule citalopram 40 mg tablet 40 mg PO DAILY #90 tabs 09/03/23 03/26/24 cyanocobalamin (vitamin B-12) 1,000 mcg PO DAILY #90 caps 09/03/23 03/26/24 1,000 mcg capsule prednisone 5 mg tablet 5 mg PO DAILY 09/20/23 03/26/24 amlodipine 5 mg tablet 10 mg (2 x 5 mg) PO DAILY #180 tabs 10/25/23 03/26/24 atorvastatin 40 mg tablet 40 mg PO DAILY #90 tabs 11/14/23 03/26/24 chlorhexidine gluconate 0.12 % 15 ml mucous membrane BID #300 mL 01/09/24 03/26/24 mouthwash (Paroex Oral Rinse) hydroxyzine HCl 25 mg tablet 25 mg PO BID PRN Worry, Anxiety, 01/09/24 03/26/24 Nausea #30 tabs albuterol sulfate 90 mcg/actuation 1 puff inhalation Q6H PRN PRN 01/14/24 03/26/24 aerosol inhaler shortness of breath or wheezing #6.7 grams budesonide 0.25 mg/2 mL suspension 0.25 mg (2 mL) inhalation BID #60 01/14/24 03/26/24 for nebulization mL budesonide-formoterol HFA 160 2 puff inhalation BID #10.2 grams 01/14/24 03/26/24 mcg-4.5 mcg/actuation aerosol inhaler (Symbicort) gabapentin 100 mg capsule 100 mg PO QHS #90 caps 01/14/24 03/26/24 ipratropium 0.5 mg-albuterol 3 mg 3 ml inhalation Q6H PRN shortness 01/14/24 03/26/24 (2.5 mg base)/3 mL nebulization of breath or wheezing #180 mL soln pantoprazole 40 mg tablet,delayed 40 mg PO DAILY #90 tabs 03/17/24 03/26/24 release Previous Rx's ?Medication ?Instructions ?Recorded rivaroxaban 10 mg tablet (Xarelto) 10 mg PO DAILY #90 tabs 08/20/23 cholecalciferol (vitamin D3) 50 50 mcg PO DAILY #90 caps 09/03/23 mcg (2,000 unit) capsule citalopram 40 mg tablet 40 mg PO DAILY #90 tabs 09/03/23 cyanocobalamin (vitamin B-12) 1,000 mcg PO DAILY #90 caps 09/03/23 1,000 mcg capsule amlodipine 5 mg tablet 10 mg (2 x 5 mg) PO DAILY #180 tabs 10/25/23 atorvastatin 40 mg tablet 40 mg PO DAILY #90 tabs 11/14/23 chlorhexidine gluconate 0.12 % 15 ml mucous membrane BID #300 mL 01/09/24 mouthwash (Paroex Oral Rinse) hydroxyzine HCl 25 mg tablet 25 mg PO BID PRN Worry, Anxiety, 01/09/24 Nausea #30 tabs albuterol sulfate 90 mcg/actuation 1 puff inhalation Q6H PRN PRN 01/14/24 aerosol inhaler shortness of breath or wheezing #6.7 grams budesonide 0.25 mg/2 mL suspension 0.25 mg (2 mL) inhalation BID #60 01/14/24 for nebulization mL budesonide-formoterol HFA 160 2 puff inhalation BID #10.2 grams 01/14/24 mcg-4.5 mcg/actuation aerosol inhaler (Symbicort) gabapentin 100 mg capsule 100 mg PO QHS #90 caps 01/14/24 ipratropium 0.5 mg-albuterol 3 mg 3 ml inhalation Q6H PRN shortness 01/14/24 (2.5 mg base)/3 mL nebulization of breath or wheezing #180 mL soln pantoprazole 40 mg tablet,delayed 40 mg PO DAILY #90 tabs 03/17/24 release Allergies Allergy/AdvReac Type Severity Reaction Status Date / Time clarithromycin Allergy Severe HIVES Verified 03/26/24 05:49 Penicillins Allergy Severe HIVES Verified 03/26/24 05:49 tetracycline Allergy Severe HIVES, Verified 03/26/24 05:49 HALLUCINATIONS eszopiclone (Eszopiclone) Allergy Unknown pt unsure Verified 03/26/24 05:49 of reaction telithromycin (Telithromycin) Allergy Unknown pt unsure Verified 03/26/24 05:49 raloxifene HCl (From Evista) AdvReac Intermediate BODY ACHES Verified 03/26/24 05:49 sulfamethoxazole (From AdvReac Intermediate HEADACHE,VO Verified 03/26/24 05:49 Bactrim) MITING trimethoprim (From Bactrim) AdvReac Intermediate HEADACHE,VO Verified 03/26/24 05:49 MITING alendronate sodium AdvReac Mild BODY ACHE Verified 03/26/24 05:49 codeine AdvReac Mild GI UPSET Verified 03/26/24 05:49 risedronate sodium (From AdvReac Mild BODY ACHES Verified 03/26/24 05:49 Actonel) Bisphosphonates AdvReac Unknown achy joints Verified 03/26/24 05:49 hydrocodone (Hydrocodone) AdvReac Unknown vomitting Verified 03/26/24 05:49 Macrolide Antibiotics AdvReac Unknown vomitting Verified 03/26/24 05:49 and hallucinations morphine AdvReac Unknown pt. felt Verified 03/26/24 05:49 like she was floating, states she thinks she got to Sulfa (Sulfonamide AdvReac Other (See Verified 03/26/24 05:49 Antibiotics) Comment) General Stated Complaint: SOB TENA: 2 Review of Systems All systems reviewed & are unremarkable except as noted in HPI and below Exam Narrative Exam Narrative: 1.Const: Well-nourished, Well-developed, appearing stated age 2.Eyes: PERRL, no conjunctival injection, and symmetrical lids. 3.ENT: Atraumatic external nose and ears. Moist MM. Neck: Symmetric, trachea midline, No thyromegaly. Slightly asymmetric jaw on the left secondary to her lesion and swelling. 4.CVS: +S1/S2, Peripheral pulses 2+ and equal in all extremities. Brisk capillary refill in all extremities. 5.RESP: Mild tachypnea, minimal crackles in the bases, no wheezes or rhonchi. 6.GI: Soft, nondistended, mild achiness around G-tube. Mild discharge around the G-tube site as well. Discharge appears to be orange in color and quite thick. 7.MSK: Normocephalic/Atraumatic, Extremities w/o deformity or ttp No cyanosis or clubbing, Normal movement of all extremities 8.Skin: Warm, Dry. Patient's right chest port demonstrates bruising and some mild erythema. Minimal tenderness. No warmth. 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 Sensation grossly intact, no focal neurologic deficits. 10.Psych: (AAO) x3. Appropriate mood and affect Course Vital Signs Vital signs: Vital Signs Temperature 36.4 C L 03/26/24 05:44 Pulse 77 03/26/24 05:44 Respiratory Rate 18 03/26/24 05:44 Blood Pressure 146/85 H 03/26/24 05:44 Pulse Oximetry 95 03/26/24 05:44 Temperature 36.4 C L 03/26/24 05:44 Temperature Source Skin 03/26/24 05:44 Pulse 77 03/26/24 05:44 Respiratory Rate 20 03/26/24 05:49 Respiratory Effort Short of Breath 03/26/24 05:49 Respiratory Depth Normal 03/26/24 05:49 Respiratory Pattern Normal 03/26/24 05:49 Blood Pressure 146/85 H 03/26/24 05:44 Blood Pressure Position Sitting 03/26/24 05:44 Pulse Oximetry 95 03/26/24 05:44 Oxygen Delivery Method Nasal Cannula 03/26/24 05:44 Oxygen Flow Rate 4 03/26/24 05:44 Lab/Test Results Lab/Test Results: 03/26/24 05:51 Blood Blood Culture - Pending 03/26/24 05:51 Blood Blood Culture - Pending Medical Decision Making This is a pleasant 73-year-old female with a past medical history of pulmonary embolism on Xarelto, obstructive sleep apnea, hearing loss, interstitial lung disease, temporal arteritis, polymyalgia rheumatica, GERD, with a recent diagnosis of 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 Patient states symptoms started this evening, she denies any pleuritic chest pain but does admit to a cough. She denies any vomiting or diarrhea. She still eats her food and cuts it up in small pieces. She denies any fever or chills. She denies any headache or neck pain. She denies any abdominal pain. She does admit to persistent leaking around her gastric tube site since it was placed last week. She admits to very mild tenderness in that area. No other complaints. No other modifying factors. She states that she has been taking her medications as directed. Exam demonstrates a mildly tachypneic patient, slightly hypoxic at 80% on room air. 4 L were started and she was brought up to the mid 90s. Right chest port demonstrates bruising and a small area of redness over the port. Left gastric tube demonstrates atypical orange-colored discharge coming from around the intrusion site. Mild tenderness there. Mild generalized abdominal tenderness as well. Differential is broad but includes aspiration pneumonia, postoperative pneumothorax is less likely. Pulmonary embolism is certainly of concern. I am also concerned with the mild tenderness around the gastric tube, this may be normal postoperatively, however infection versus complication is also on the differential. Dissection is unlikely, EKG is benign, however cardiac etiology causing mild CHF is of concern as well. Will evaluate for these etiologies, monitor closely and reassess. EKG: No significant ST elevations. Minimal lateral depressions. No STEMI. Slight change from prior EKG on 05/16/2023 7 AM Laboratory workup is returned, patient has evidence of mild white count of 12.59, mild left shift, no bandemia. Mild alkalosis with no evidence of elevated pCO2. Lactate is high at 1.9. BUN high at 27, creatinine normal, proBNP elevated at 2143, procalcitonin less than 0.1. Chest x-ray shows evidence of patchy atelectasis or pneumonia/infiltrate. With her immunosuppression, hypoxemia, I do have concern for pneumonia and an infectious etiology. Patient does have multiple antibiotic allergies, because of this we will start her on vancomycin and aztreonam. I do feel that further diagnostic evaluation is indicated, we will get a CT scan of the chest and abdomen as she does demonstrate stable renal function, and she does have abdominal tenderness on exam with her hypoxia. We will evaluate for acute atypical process at the G-tube site, as well as at the port site. Patient will be signed out to my colleague Dr. Minaya for follow-up on CT imaging. Patient will likely require admission. FINDINGS: Limitations: Low lung volumes. Portable technique. Patient body habitus. Tubes, catheters and devices: Infusion port noted. Lungs: Mild prominence of the interstitial lung markings. Mild patchy opacities at the left lung base. Pleural spaces: Unremarkable. No definite pleural effusion. No pneumothorax. Heart/Mediastinum: Mild cardiomegaly. Bones/joints: Unremarkable. IMPRESSION: 1. Mild prominence of the interstitial lung markings. This finding may represent mild interstitial edema and/or an infectious/inflammatory process. 2. Mild patchy left basilar atelectasis and/or pneumonic infiltrate. Thank you for allowing us to participate in the care of your patient. Dictated and Authenticated by: Raya Perez MD 03/26/2024 6:54 AM Eastern Time ([place] & [place]) Quality:SDOH Health Related Social Needs: No Data to Display PFSH All Active Problems (Updated 03/26/24 @ 07:03 by Vicente Sheldon DO) Pneumonia (Acute) Hypoxemia (Acute) 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 positioning? during PFT (~05/22/23) Lip pain (Acute) inner lip pain, into left inner cheek (apthous ulcer? thrush? referred jam/TMJ pain?) Pain in lower jaw (Acute) Other pulmonary embolism without acute cor pulmonale (Acute Unknown) Massive PE, Apr 08, 2022 per pt report .. [facility] note 04/16/23.HE MEHUL treated with BiPAP (Acute) Bronchiectasis (Acute) Former smoker (Acute) Dyspnea on exertion (Acute) Pulmonary emphysema (Acute) Benign essential hypertension (Acute 04/10/13) Increased appetite (Acute) Fall (Acute) Anticoagulant long-term use (Acute) Xarelto.. Hx Eliquis, PE, 2019 Diarrhea (Acute) Prediabetes (Acute) 10/2022: 5.9 .. 09/2021: 5.7.. Bronchitis (Acute) Hearing loss, bilateral (Acute) Fatigue (Acute) Macrocytosis (Acute) Hypokalemia (Acute) PAD (peripheral artery disease) (Chronic) focal rt common iliac artery stenosis per CARD notes, ID in 2019 Peripheral vascular disease (Chronic) Orthostasis (Acute) Polymyalgia rheumatica (Acute 10/12/11) Temporal arteritis (Acute) Depressive disorder, not elsewhere classified (Acute 10/12/11) Lumbago (Acute 12/10/12) Esophageal reflux (Acute 12/10/12) EGD 05/25/13 KD: mild antritis and distal esophagitis; int metaplasia, no dysplasia Allergic rhinitis, unspecified (Acute 12/10/12) Neoplasm of unspecified behavior of bone, soft tissue, and skin (Acute) Leukoplakia of oral cavity (Acute) Anxiety and depression (Chronic) DJD (degenerative joint disease) (Chronic) Osteoarthritis (Chronic) GERD (gastroesophageal reflux disease) (Chronic) Medical History Buccal mass Primary hypertension Hx of adenomatous colonic polyps (~05/2019) villous adenoma History of pulmonary embolism Pulmonary embolism 2019 .. Eliquis, then Xarelto.. Diverticulosis 05/12/[address] Mariela Arizmendi, [facility] Colon polyps Abnormal colonoscopy (11/11/15) 11/11/15 Dr Brizuela, sessile serrated adenoma, repeat 3 years. mg Adenomatous colon polyp 11/11/15 Dr Brizuela, sessile serrated adenoma, repeat 3 years. mg Benign paroxysmal vertigo (10/12/11) Midline cystocele (12/10/12) pt. unsure Obstructive sleep apnea (adult) (pediatric) (01/19/13) Stopped BIPAP, 2019. severe, Dr. Greer, on auto Bi-Level bipap Obesity (12/10/12) Restless legs (01/19/13) Dr. Greer Sensorineural hearing loss, bilateral (06/03/14) Tinnitus (06/03/14) Vertigo (06/03/14) Serrated polyp of colon (11/11/15) Hyperlipemia Surgical History History of temporal artery biopsy Hx of colonoscopy History of cardiac cath Hysterectomy, Laproscopic Bilateral salpingectomy with oophorectomy (~12/2006) Family History Sister Cancer Breast cancer Father Heart disease Mother Heart disease Brother Heart disease [place] Social History Smoking/Tobacco Use Status: Former Tobacco Use Quit Date: 09/02/99 Tobacco: How many years used: 20 Smoking risk assessment performed?: Yes Alcohol Intake: current Alcohol Intake frequency: 0-2 drinks per day Alcohol type: wine Drug use: Never Substance use type: does not use Adopted: No Caregiver/Support person: No Foster care: No Housing: house Number of Children: 3 number of grandchildren: 4 Communication Needs: Hard of Hearing Education Level: high school current occupation: Retired Pets and animals: Yes Pets and animals: dog(s) Sexually active: No Do you think of yourself as: straight/heterosexual Current gender identity: female What is your relationship status?: How often do you talk on the phone with friends or family?: three or more times per week How often do you get together with friends or relatives?: once per week Do you belong to any clubs or organized social groups?: no Panel score (0-1 are the most socially isolated patients): 2 What type of physical activity do you participate in: none Dilia/Scientologist: Zoroastrian Special dilia needs: No Seatbelt use: always Drive intox or ride w/intox hazardous materials driver: No Do you feel safe at home: Yes Do you feel safe in your relationship?: Yes Additional Social history: Lives with of 55 years in [place]. She has 3 kids who live close. 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
[2024-03-26 06:15] LABS: BE (Venous) -3 mmol/L (-2-3); HCO3 (Venous) 21 mmol/L (23-28); O2 Sat (Venous) 79 %; TCO2 (Venous) 19 mmol/L (24-29); pCO2 (Venous) 30 mmHg (41-51); pH (Venous) 7.46 (7.31-7.41); pO2 (Venous) 42 mmHg
[2024-03-26 06:20] LABS: Lactate 1.9 mmol/L (0.6-1.4)
[2024-03-26 06:22] LABS: Abs Immature Grans 0.18 10^3/uL (0.0-0.06); Absolute Lymphocyte Count 0.84 10^3/uL (1.2-3.4); Basophils % 0.2 %; HCT 38.6 % (36.0-46.0); HGB 12.4 g/dL (11.2-15.7); Immature Grans % 1.4 %; Lymphocytes % 6.7 %; MCHC 32.1 % (32.0-36.0); MCV 94 fL (80-95); MPV 9.8 fL (8.0-11.0); Monocytes % 7.5 %; Neutrophils % 84.2 %; Platelet Count 219 10^3/uL (130-400); RBC 4.13 10^6/uL (3.93-5.22); RDW 13.8 % (11.7-14.6); RDW-SD 47.2 fL; WBC 12.59 10^3/uL (4.4-10.8)
[2024-03-26 06:29] LABS: Absolute Basophil Count 0.03 10^3/uL (0.0-0.2); Absolute Monocyte Count 0.94 10^3/uL (0.1-0.8)
[2024-03-26 06:41] LABS: INR 1.1 (0.9-1.1); PTT Activated 26.9 sec (23.6-32.8); Prothrombin Time 10.7 sec (9.1-11.1)
[2024-03-26 06:44] LABS: COVID-19 PCR Negative (Negative); Influenza A PCR Negative (Negative); Influenza B PCR Negative (Negative); RSV PCR Negative (Negative)
[2024-03-26 06:48] LABS: ALT 25 U/L (14-59); AST 19 U/L (15-37); Albumin 3.2 g/dL (3.4-5.0); Alkaline Phosphatase 57 U/L (46-116); Anion Gap 11.3 mmol/L (3-11); BUN 27 mg/dL (7-18); Bilirubin, Total 0.47 mg/dL (0.2-1.0); CO2 23.7 mmol/L (21.0-32.0); CREATININE 0.9 mg/dL (0.55-1.02); Calcium 9.3 mg/dL (8.5-10.1); Chloride 105 mmol/L (98-107); Estimated GFR 67.08 (mL/min/1.73m2); Glucose 113 mg/dL (74-106); NT-proBNP 2143 pg/mL (<300); Potassium 4.3 mmol/L (3.5-5.1); Sodium 140 mmol/L (136-145); Total Protein 7.4 g/dL (6.4-8.2); Troponin I < 50 ng/L (< or =60)
[2024-03-26 06:52] LABS: Source Nasopharynx
--- NOTE | 2024-03-26 06:54 | DI.VRAD_ITS ---
Addendum created by Raya Perez MD on 03/26/2024 7:33:06 AM EDT: ADDENDUM: Findings were discussed with DR. ARCOS at 03/26/2024 7:32 AM EDT. Addendum created by Raya Perez MD on 03/26/2024 7:29:18 AM EDT: ADDENDUM: Upon further review of the images, there is noted to be linear opacity at the right lung base. It is unclear whether this represents subsegmental atelectasis related to low lung volumes, or whether there may potentially be intraperitoneal free air beneath the right hemidiaphragm, which is outlining the right hemidiaphragm. Correlate clinically. Consider CT of the abdomen and pelvis for further evaluation. Initial report created on 03/26/2024 6:54:26 AM EDT: PROCEDURE INFORMATION: Exam: XR Chest Exam date and time: 03/26/2024 6:19 AM Age: 73 years old Clinical indication: Shortness of breath and other: Hypoxic TECHNIQUE: Imaging protocol: Radiologic exam of the chest. Views: 1 view. COMPARISON: CT CHEST HIGH RESOLUTION 05/27/2023 9:58 AM FINDINGS: Limitations: Low lung volumes. Portable technique. Patient body habitus. Tubes, catheters and devices: Infusion port noted. Lungs: Mild prominence of the interstitial lung markings. Mild patchy opacities at the left lung base. Pleural spaces: Unremarkable. No definite pleural effusion. No pneumothorax. Heart/Mediastinum: Mild cardiomegaly. Bones/joints: Unremarkable. IMPRESSION: 1. Mild prominence of the interstitial lung markings. This finding may represent mild interstitial edema and/or an infectious/inflammatory process. 2. Mild patchy left basilar atelectasis and/or pneumonic infiltrate. Dictated and Authenticated by: Raya Perez MD. Ordering:MONTSE Zhang MD
[2024-03-26 06:58] LABS: Procalcitonin < 0.1 ng/mL
[2024-03-26] MEDS: Omnipaque 350 MG/ML 100 ML BTL IJ (07:49)
[2024-03-26] MEDS: Normal Saline - Diluent 50 ML VIAL IJ (07:50)
--- NOTE | 2024-03-26 08:00 | DI.CT_ITS ---
Exam(s) CT CHEST PE ABD PELVIS W EXAM: CT CHEST PE ABD PELVIS W CLINICAL HISTORY: cough, SOB, hx of PE, recent port. TECHNIQUE: Imaging Protocol: Axial CT angiography was performed with multi-slice acquisition and mu lti-planar and/or 3D reconstructions. CONTRAST MATERIAL: Intravenous: Omnipaque 350contrast volume:structured data in ml mL COMPARISON: CT CT CHEST PE CTA from 05/16/[address] CHEST HIGH RESOLUTION from 05/27/2023 FINDINGS: The examination is limited due to patient motion artifact. CHEST: Tracheobronchial tree: Patent where visualized. Mild bronchial wall thickening which can be seen with bronchiolitis. Pulmonary parenchyma: Moderate centrilobular emphysematous changes are present. Mild atelectatic darien nges are seen in the lung bases. No suspicious pulmonary nodules. There is mild thickening of the i nterstitium which may represent interstitial edema or pneumonia. There is unchanged scarring in the right lung apex. Pulmonary Arteries: No evidence of filling defect to suggest pulmonary emboli. Mediastinum and Felipa: Stable enlarged mediastinal lymph nodes. There is a small hiatal hernia. Visualized thyroid gland: Unremarkable. Pleura: There are small bilateral pleural effusions. No pneumothorax. Heart: Mild cardiomegaly. Coronary artery calcifications are present. No pericardial effusion. Aorta: Thoracic aorta non-dilated. No evidence of dissection. Atherosclerotic calcification is prese nt. Bones: Within normal limits for the patient's age. No aggressive osseous lesions are present. Soft tissues: Unremarkable. Tubes, Catheters, and Lines: The patient has a indwelling central venous catheter. ABDOMEN: Liver: Normal density. No measurable mass. Portal, Superior Mesenteric, and Splenic Veins: Unremarkable. Gallbladder and Biliary Tract: No radiodense calculus or dilation. Pancreas: Normal density, no abnormal calcifications or inflammatory process. Spleen: Normal. Adrenals: No masses seen. Kidneys: Normal size, contour and axis. No radiodense stones or obstructive uropathy. No masses seen. Abdominal Aorta: Abdominal portion non-dilated. Atherosclerotic calcification is present. Bowel: There is diverticulosis of the colon without evidence of acute diverticulitis. There is no ev idence of bowel obstruction or bowel wall thickening. The patient has a percutaneous gastrostomy tub e. There is air seen in the anterior abdominal wall around the gastrostomy tube. There is a small a mount of air which may be in the wall of the stomach anteriorly. This lies superior to the gastrosto my tube placement. There is small to moderate amount of free air in the abdomen. No evidence of bhargavi endicitis. Peritoneal Cavity: No ascites, collection or mesenteric inflammatory response. Pneumoperitoneum. Lymph Nodes: Within normal limits. Bones: Within normal limits for the patient's age. There is a right convex lumbar scoliosis. Soft Tissues: There is a small fat containing umbilical hernia. PELVIS: Bladder: Symmetric distention, no gross wall thickening. Reproductive Organs: Status post hysterectomy. Lymph Nodes: Within normal limits. Bones: Within normal limits. IMPRESSION: 1. No evidence pulmonary embolism, thoracic aortic dissection or aneurysm. 2. Mild cardiomegaly. Small bilateral pleural effusions. Diffuse interstitial thickening which may represent pulmonary edema. Pneumonitis cannot be excluded. The findings raise a question of mild fl uid overload/congestive heart failure. Please correlate clinically. 3. Pneumoperitoneum. The patient has a percutaneous gastrostomy tube. There is air seen within the wall and around the stomach in the gastrostomy tube. There is air seen in the subcutaneous tissues i n the anterior abdominal wall at the gastrostomy tube site. The pneumoperitoneum may be related to p lacement of the percutaneous gastrostomy tube. Air within the wall of the stomach is seen anterior a nd slightly superior to the gastrostomy tube placement. Ulcer cannot be excluded. This may also be a site of pneumoperitoneum with a perforated gastric ulcer. Surgical consult is recommended. 4. Colonic diverticulosis without evidence of acute diverticulitis. 5. Findings were discussed with Dr. Minaya at 8:35 a.m. on 03/26/2024. RADIATION DOSE DELIVERED: Total DLP DATA REPOSITORY: All CT scans at this facility are submitted to the National Radiology Data Registry (NRDR) Dose Index Registry (DIR) with the [employer] (ACR). RADIATION OPTIMIZATION: All CT scans at this facility use at least one of these dose optimization te chniques: automated exposure control; mA and/or kV adjustment per patient size (includes targeted exa ms where dose is matched to clinical indication); or iterative reconstruction.
[2024-03-26] MEDS: VANCOMYCIN/WATER (PEG) 2 GM/400 ML BAG IV (08:17)
[2024-03-26] MEDS: AZTREONAM 2,000 MG in Normal Saline 100 ML 200 MG IVPB (08:18)
[2024-03-26] MEDS: Furosemide 20 MG/2 ML VIAL IVP (09:09)
[2024-03-26 09:21] LABS: Bilirubin Negative (Negative); Blood Negative (Negative); Clarity Clear (Clear); Glucose Negative (Negative); Ketones Negative (Negative); Leukocyte Esterase Negative (Negative); Nitrite Negative (Negative); Specific Gravity 1.015 (1.005-1.025); Urobilinogen 0.2 mg/dL (Up to 0.2)
--- NOTE | 2024-03-26 09:32 | ED.PROG_ITS ---
Date of service: 03/26/24 Time of Service: 09:33 Medical Decision Making Patient signed out to me pending CT imaging, CTA of the chest does not show any PE but does have some interstitial edema and cardiomegaly so a 20 mg of Lasix was given. She is already on Vanco and aztreonam. CT abdomen shows significant amount air around the stomach, she does have some tenderness around the surgical site and apparently has had some drainage out of it. I reviewed the case with Dr. Bronson from general surgery and given she had the procedure at [facility] and her medical comorbidities would likely benefit from anesthesiologists as she is likely going to need to have the G-tube replaced and also could need a laparotomy. She did advise that a G-tube contrast study would be of benefit I had reviewed the case with surgeon Dr. Swenson at [facility] and he excepted to the ER and said we could hold off on the study and they could do it there. I discussed the case with Dr. Cummins from the emergency department who accepted to their department for further eval and treatment. Patient updated and is in agreement with this plan. Imaging Data Radiologic Study: Attestation: I personally reviewed and interpreted this imaging study as follows: Imaging: CT Scan Radiologist's impression: Patient Name: Tena Nickerson Unit #: [id number] Loc: ER Ordering Provider: Vicente Sheldon DO Status: [facility] Primary Care Provider: Anjali Moe DO Date of Exam: 03/26/24 Sex: F : 1950 Age: 73 Exam(s) a CT:CT chest PE abd & pelvis w Exam(s) CT CHEST PE ABD PELVIS W EXAM: CT CHEST PE ABD PELVIS W CLINICAL HISTORY: cough, SOB, hx of PE, recent port. TECHNIQUE: Imaging Protocol: Axial CT angiography was performed with multi- slice acquisition and multi-planar and/or 3D reconstructions. CONTRAST MATERIAL: Intravenous: Omnipaque 350contrast volume:structured data in ml mL COMPARISON: CT CT CHEST PE CTA from 05/16/[address] CHEST HIGH RESOLUTION from 05/27/2023 FINDINGS: The examination is limited due to patient motion artifact. CHEST: Tracheobronchial tree: Patent where visualized. Mild bronchial wall thickening which can be seen with bronchiolitis. Pulmonary parenchyma: Moderate centrilobular emphysematous changes are present. Mild atelectatic changes are seen in the lung bases. No suspicious pulmonary nodules. There is mild thickening of the interstitium which may represent interstitial edema or pneumonia. There is unchanged scarring in the right lung apex. Pulmonary Arteries: No evidence of filling defect to suggest pulmonary emboli. Mediastinum and Felipa: Stable enlarged mediastinal lymph nodes. There is a small hiatal hernia. Visualized thyroid gland: Unremarkable. Pleura: There are small bilateral pleural effusions. No pneumothorax. Heart: Mild cardiomegaly. Coronary artery calcifications are present. No pericardial effusion. Aorta: Thoracic aorta non-dilated. No evidence of dissection. Atherosclerotic calcification is present. Bones: Within normal limits for the patient's age. No aggressive osseous lesions are present. Soft tissues: Unremarkable. Tubes, Catheters, and Lines: The patient has a indwelling central venous catheter. ABDOMEN: Liver: Normal density. No measurable mass. Portal, Superior Mesenteric, and Splenic Veins: Unremarkable. Gallbladder and Biliary Tract: No radiodense calculus or dilation. Pancreas: Normal density, no abnormal calcifications or inflammatory process. Spleen: Normal. Adrenals: No masses seen. Kidneys: Normal size, contour and axis. No radiodense stones or obstructive uropathy. No masses seen. Abdominal Aorta: Abdominal portion non-dilated. Atherosclerotic calcification is present. Bowel: There is diverticulosis of the colon without evidence of acute diverticulitis. There is no evidence of bowel obstruction or bowel wall thickening. The patient has a percutaneous gastrostomy tube. There is air seen in the anterior abdominal wall around the gastrostomy tube. There is a small amount of air which may be in the wall of the stomach anteriorly. This lies superior to the gastrostomy tube placement. There is small to moderate amount of free air in the abdomen. No evidence of appendicitis. Peritoneal Cavity: No ascites, collection or mesenteric inflammatory response. Pneumoperitoneum. Lymph Nodes: Within normal limits. Bones: Within normal limits for the patient's age. There is a right convex lumbar scoliosis. Soft Tissues: There is a small fat containing umbilical hernia. PELVIS: Bladder: Symmetric distention, no gross wall thickening. Reproductive Organs: Status post hysterectomy. Lymph Nodes: Within normal limits. Bones: Within normal limits. IMPRESSION: 1. No evidence pulmonary embolism, thoracic aortic dissection or aneurysm. 2. Mild cardiomegaly. Small bilateral pleural effusions. Diffuse interstitial thickening which may represent pulmonary edema. Pneumonitis cannot be excluded. The findings raise a question of mild fluid overload/congestive heart failure. Please correlate clinically. 3. Pneumoperitoneum. The patient has a percutaneous gastrostomy tube. There is air seen within the wall and around the stomach in the gastrostomy tube. There is air seen in the subcutaneous tissues in the anterior abdominal wall at the gastrostomy tube site. The pneumoperitoneum may be related to placement of the percutaneous gastrostomy tube. Air within the wall of the stomach is seen anterior and slightly superior to the gastrostomy tube placement. Ulcer cannot be excluded. This may also be a site of pneumoperitoneum with a perforated gastric ulcer. Surgical consult is recommended. 4. Colonic diverticulosis without evidence of acute diverticulitis. 5. Findings were discussed with Dr. Minaya at 8:35 a.m. on 03/26/2024. 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 Requiring 4 L of oxygen. Laboratory workup shows white count, infiltrate on x- ray. Pending CT scan of the chest and abdomen. Concern for potential G-tube or recent port complication. Multiple allergies, started on vancomycin and aztreonam. Will likely require admission. Last updated by Vicente Sheldon DO at 03/26/24 07:06 Discharge Plan Disposition Specific Acute Inpt Facility: [facility] Discharge Details Chief Complaint: SOB Clinical Impression: Hypoxemia, Pneumonia, Pneumoperitoneum Primary Care Provider: Anjali Moe ED Provider: Aguilar Minaya [place] Meds and New Rx's Prescriptions: No Action Xarelto 10 mg tablet 10 mg PO DAILY Qty: 90 1RF citalopram 40 mg tablet 40 mg PO DAILY Qty: 90 3RF cholecalciferol (vitamin D3) 50 mcg (2,000 unit) capsule 50 mcg PO DAILY Qty: 90 3RF cyanocobalamin (vitamin B-12) 1,000 mcg capsule 1,000 mcg PO DAILY Qty: 90 3RF losartan 50 mg tablet 50 mg PO DAILY Patient Comments: [facility] Vascular note 04/18/23 Dr. Monreal.HE chlorhexidine gluconate [Paroex Oral Rinse] 0.12 % mouthwash 15 ml mucous membrane BID Qty: 300 0RF Rx Instructions: Trial mouth cleaning rinse x1 week; STOP if it stings hydroxyzine HCl 25 mg tablet 25 mg PO BID PRN (Reason: Worry, Anxiety, Nausea) Qty: 30 1RF Rx Instructions: Trial for anxiety albuterol sulfate 90 mcg/actuation HFA aerosol inhaler 1 puff INHALATION Q6H PRN PRN (Reason: shortness of breath or wheezing) Qty: 6.7 1RF Rx Instructions: as best dispensed per insurance budesonide 0.25 mg/2 mL suspension for nebulization 0.25 mg inhalation BID Qty: 60 6RF budesonide-formoterol [Symbicort] 160-4.5 mcg/actuation HFA aerosol inhaler 2 puff inhalation BID Qty: 10.2 6RF gabapentin 100 mg capsule 100 mg PO QHS Qty: 90 3RF acetaminophen [Tylenol] 325 MG tablet 650 mg PO Q6H PRN PRN prednisone 5 mg tablet 5 mg PO DAILY Rx Instructions: 09/20/23 Alternate 5 mg with 4 mg every other day for approximately 1 weeks and then decrease to 4 mg. Keep there for 3 weeks and thy try try decreasing by alternating 4 mg with 3 mg every other day. amlodipine 5 mg tablet 10 mg PO DAILY Qty: 180 3RF atorvastatin 40 mg tablet 40 mg PO DAILY Qty: 90 3RF ipratropium-albuterol 0.5 mg-3 mg(2.5 mg base)/3 mL solution for nebulization 3 ml inhalation Q6H PRN (Reason: shortness of breath or wheezing) Qty: 180 1RF pantoprazole 40 mg tablet,delayed release (DR/EC) 40 mg PO DAILY Qty: 90 3RF
[2024-03-26 10:43] LABS: Troponin I < 50 ng/L (< or =60)
== END 2024-03-26 09:32 | disposition short-term general hospital (02) ==
PROVIDERS: Student in an Organized Health Care Education/Training Program; Emergency Provider Emergency Medicine; PCP Student in an Organized Health Care Education/Training Program
DX: R09.02 Hypoxemia (principal); J18.9 Pneumonia, unspecified organism; J84.9 Interstitial pulmonary disease, unspecified; M35.3 Polymyalgia rheumatica; C06.0 Malignant neoplasm of cheek mucosa; I10 Essential (primary) hypertension; E78.5 Hyperlipidemia, unspecified; Z86.711 Personal history of pulmonary embolism; Z79.01 Long term (current) use of anticoagulants; Z93.1 Gastrostomy status
CPT/HCPCS: 00123; 36415; 71275; 74177; 80053; 82805; 84145; 87040; 87637; 93005; 96365; 96366; 96368; 96375; 99285; 71045; 81003; 83605; 83880; 84484; 85025; 85610; 85730; 93010; 99284; J0457; J1941; J3372; J3490

== ENCOUNTER 2024-04-27 02:40 | Outpatient (RCR) | payer MEDICARE, SELFPAY ==
[2024-04-06] MEDS: Normal Saline Flush 10 ML SYR IVP (10:39)
[2024-04-06 10:41] LABS: Abs Immature Grans 0.07 10^3/uL (0.0-0.06); Absolute Basophil Count 0.05 10^3/uL (0.0-0.2); Absolute Lymphocyte Count 1.11 10^3/uL (1.2-3.4); Absolute Monocyte Count 0.75 10^3/uL (0.1-0.8); Absolute Neutrophil Count 3.99 10^3/uL (1.2-6.7); Basophils % 0.8 %; HCT 37.1 % (36.0-46.0); HGB 12.1 g/dL (11.2-15.7); Immature Grans % 1.2 %; Lymphocytes % 18.6 %; MCH 30.2 pg (27.0-33.0); MCHC 32.6 % (32.0-36.0); MCV 93 fL (80-95); MPV 10.3 fL (8.0-11.0); Monocytes % 12.6 %; Neutrophils % 66.8 %; Platelet Count 276 10^3/uL (130-400); RBC 4.01 10^6/uL (3.93-5.22); RDW-SD 47.7 fL; WBC 5.97 10^3/uL (4.4-10.8)
[2024-04-06 11:02] LABS: ALT 26 U/L (14-59); AST 15 U/L (15-37); Albumin 3.3 g/dL (3.4-5.0); Alkaline Phosphatase 59 U/L (46-116); Anion Gap 10.4 mmol/L (3-11); BUN 24 mg/dL (7-18); Bilirubin, Total 0.51 mg/dL (0.2-1.0); CO2 25.6 mmol/L (21.0-32.0); CREATININE 1.1 mg/dL (0.55-1.02); Calcium 9.8 mg/dL (8.5-10.1); Chloride 104 mmol/L (98-107); Estimated GFR 52.73 (mL/min/1.73m2); Glucose 134 mg/dL (74-106); Magnesium 1.5 mg/dL (1.8-2.4); Potassium 3.7 mmol/L (3.5-5.1); Sodium 140 mmol/L (136-145); Total Protein 7.3 g/dL (6.4-8.2)
[2024-04-13] MEDS: Normal Saline Flush 10 ML SYR IVP (10:21)
[2024-04-13 10:25] LABS: Abs Immature Grans 0.02 10^3/uL (0.0-0.06); Absolute Basophil Count 0.02 10^3/uL (0.0-0.2); Absolute Lymphocyte Count 0.98 10^3/uL (1.2-3.4); Absolute Monocyte Count 0.81 10^3/uL (0.1-0.8); Absolute Neutrophil Count 3.97 10^3/uL (1.2-6.7); Basophils % 0.3 %; HCT 35.6 % (36.0-46.0); HGB 11.6 g/dL (11.2-15.7); Immature Grans % 0.3 %; Lymphocytes % 16.9 %; MCH 30.3 pg (27.0-33.0); MCHC 32.6 % (32.0-36.0); MCV 93 fL (80-95); MPV 10.1 fL (8.0-11.0); Neutrophils % 68.5 %; Platelet Count 225 10^3/uL (130-400); RBC 3.83 10^6/uL (3.93-5.22); RDW 13.9 % (11.7-14.6); RDW-SD 46.9 fL
[2024-04-13 10:41] LABS: ALT 17 U/L (14-59); AST 13 U/L (15-37); Albumin 3.3 g/dL (3.4-5.0); Alkaline Phosphatase 51 U/L (46-116); Anion Gap 9.8 mmol/L (3-11); BUN 18 mg/dL (7-18); Bilirubin, Total 0.59 mg/dL (0.2-1.0); CO2 25.2 mmol/L (21.0-32.0); Calcium 9.1 mg/dL (8.5-10.1); Chloride 105 mmol/L (98-107); Estimated GFR 58.75 (mL/min/1.73m2); Glucose 108 mg/dL (74-106); Magnesium 1.4 mg/dL (1.8-2.4); Potassium 3.4 mmol/L (3.5-5.1); Sodium 140 mmol/L (136-145); Total Protein 7.1 g/dL (6.4-8.2)
[2024-04-20] MEDS: Normal Saline Flush 10 ML SYR IVP (10:21)
[2024-04-20 10:33] LABS: Abs Immature Grans 0.04 10^3/uL (0.0-0.06); Absolute Basophil Count 0.03 10^3/uL (0.0-0.2); Absolute Lymphocyte Count 0.87 10^3/uL (1.2-3.4); Absolute Monocyte Count 1.05 10^3/uL (0.1-0.8); Absolute Neutrophil Count 3.44 10^3/uL (1.2-6.7); Basophils % 0.6 %; HCT 37.4 % (36.0-46.0); Immature Grans % 0.7 %; MCH 30.5 pg (27.0-33.0); MCHC 32.1 % (32.0-36.0); MCV 95 fL (80-95); MPV 9.6 fL (8.0-11.0); Monocytes % 19.3 %; Neutrophils % 63.4 %; Platelet Count 172 10^3/uL (130-400); RBC 3.94 10^6/uL (3.93-5.22); RDW 13.8 % (11.7-14.6); RDW-SD 48.3 fL; WBC 5.43 10^3/uL (4.4-10.8)
[2024-04-20 10:50] LABS: ALT 20 U/L (14-59); AST 13 U/L (15-37); Albumin 3.3 g/dL (3.4-5.0); Alkaline Phosphatase 52 U/L (46-116); Anion Gap 12.4 mmol/L (3-11); BUN 19 mg/dL (7-18); CO2 23.6 mmol/L (21.0-32.0); CREATININE 0.9 mg/dL (0.55-1.02); Calcium 8.8 mg/dL (8.5-10.1); Chloride 102 mmol/L (98-107); Estimated GFR 66.67 (mL/min/1.73m2); Glucose 119 mg/dL (74-106); Magnesium 1.3 mg/dL (1.8-2.4); Potassium 3.5 mmol/L (3.5-5.1); Sodium 138 mmol/L (136-145)
[2024-04-27] MEDS: Normal Saline Flush 10 ML SYR IVP (10:54)
[2024-04-27 11:07] LABS: Abs Immature Grans 0.43 10^3/uL (0.0-0.06); Absolute Basophil Count 0.06 10^3/uL (0.0-0.2); Absolute Lymphocyte Count 0.92 10^3/uL (1.2-3.4); Absolute Monocyte Count 1.12 10^3/uL (0.1-0.8); Basophils % 0.6 %; HCT 39.6 % (36.0-46.0); HGB 12.8 g/dL (11.2-15.7); Immature Grans % 4.1 %; Lymphocytes % 8.7 %; MCH 30.5 pg (27.0-33.0); MCHC 32.3 % (32.0-36.0); MCV 95 fL (80-95); MPV 9.8 fL (8.0-11.0); Monocytes % 10.6 %; Platelet Count 183 10^3/uL (130-400); RBC 4.19 10^6/uL (3.93-5.22); RDW-SD 47.6 fL; WBC 10.53 10^3/uL (4.4-10.8)
[2024-04-27 11:24] LABS: ALT 31 U/L (14-59); AST 16 U/L (15-37); Albumin 3.2 g/dL (3.4-5.0); Alkaline Phosphatase 49 U/L (46-116); Anion Gap 10.9 mmol/L (3-11); BUN 34 mg/dL (7-18); Bilirubin, Total 0.55 mg/dL (0.2-1.0); CO2 26.1 mmol/L (21.0-32.0); Calcium 9.3 mg/dL (8.5-10.1); Chloride 99 mmol/L (98-107); Estimated GFR 58.75 (mL/min/1.73m2); Glucose 144 mg/dL (74-106); Magnesium 1.4 mg/dL (1.8-2.4); Potassium 3.8 mmol/L (3.5-5.1); Sodium 136 mmol/L (136-145); Total Protein 6.8 g/dL (6.4-8.2)
== END 2024-05-02 23:59 | disposition home or self-care (01) ==
LOC: INF 02:40
PROVIDERS: PCP Student in an Organized Health Care Education/Training Program; Visit Provider Nurse Practitioner
DX: C06.9 Malignant neoplasm of mouth, unspecified (principal)
CPT/HCPCS: 36591; 80053; 83735; 85025

== ENCOUNTER 2024-04-27 14:24 | Outpatient (REF) | payer MEDICARE, SELFPAY ==
[2024-04-27 15:11] LABS: Bilirubin Small (Negative); Blood Negative (Negative); Clarity Cloudy (Clear); Glucose Negative (Negative); Ketones 15 mg/dL (Negative); Leukocyte Esterase Small (Negative); Nitrite Positive (Negative); Urobilinogen 0.2 mg/dL (Up to 0.2); pH 5.5 (5-8)
[2024-04-27 15:22] LABS: Bacteria Many HPF (Negative); C & S Indicated? No/Sq. Contamination; Casts 5-10 Hyaline LPF (Negative); Crystals Negative HPF (Negative); Epithelial Cells Moderate HPF (Negative); Mucus Negative (Negative)
== END 2024-04-27 14:25 | disposition home or self-care (01) ==
LOC: LBN 14:24
PROVIDERS: PCP Student in an Organized Health Care Education/Training Program; Visit Provider Nurse Practitioner
DX: C06.9 Malignant neoplasm of mouth, unspecified (principal); R32 Unspecified urinary incontinence
CPT/HCPCS: 81003; 81015

== ENCOUNTER 2024-04-28 17:42 | Outpatient (REF) | payer MEDICARE, SELFPAY ==
[2024-04-28 15:23] LABS: Bilirubin Negative (Negative); Blood Negative (Negative); Clarity Sl Cloudy (Clear); Glucose Negative (Negative); Ketones Negative (Negative); Leukocyte Esterase Trace (Negative); Nitrite Positive (Negative); Specific Gravity 1.025 (1.005-1.025); Urobilinogen 0.2 mg/dL (Up to 0.2); pH 5.5 (5-8)
[2024-04-28 15:51] LABS: Bacteria Many HPF (Negative); C & S Indicated? No/Sq. Contamination; Crystals Negative HPF (Negative); Epithelial Cells Moderate HPF (Negative); Mucus Negative (Negative); RBC Negative HPF (0-2)
== END 2024-04-28 17:43 | disposition home or self-care (01) ==
LOC: LBN 17:42
PROVIDERS: PCP Student in an Organized Health Care Education/Training Program; Visit Provider Nurse Practitioner
DX: C06.89 Malignant neoplasm of overlapping sites of other parts of mouth (principal); R32 Unspecified urinary incontinence
CPT/HCPCS: 81003; 81015

== ENCOUNTER 2024-05-17 09:13 | Inpatient (IN) | payer MEDICARE, SELFPAY ==
[2024-05-17] VITALS (31 sets, daily range): BP systolic 109–160; BP diastolic 42–146; PULSE 71–118; RESP 13–24; TEMP 36.1–37.2; O2SAT 94–100
--- NOTE | 2024-05-17 09:15 | RT.EKG_ITS ---
APPROVED REPORT Exam: Resting ECG Reason for Exam: weakness, Patient Location: E HR:75 bpm ECG Measurements Heart Rate 75 AXIS NC 77 P 0 QRSd 83 QRS 9 QT 373 T -11 QTc 418 Conclusion Sinus rhythm...normal P axis, V-rate 60- 99 Inferior infarct, age indeterminate...Q>35mS, T neg, II III aVF Nonspecific T abnormalities, lateral leads...T <-0.10mV, I aVL V5 V6
--- NOTE | 2024-05-17 09:30 | DI.CT_ITS ---
Exam(s) CT CHEST PE ABD PELVIS W EXAM: CT CHEST PE ABD PELVIS W CLINICAL HISTORY: SOB, rectal pain; h/o PE. TECHNIQUE: Imaging Protocol: Axial CT angiography was performed with multi-slice acquisition and mu lti-planar and/or 3D reconstructions. CONTRAST MATERIAL: Intravenous: Omnipaque 350 Contrast volume:100 ml COMPARISON: CT CT CHEST PE ABD PELVIS W from 03/26/2024 FINDINGS: CHEST: Pulmonary Arteries: No evidence of filling defects to suggest pulmonary emboli. Tracheobronchial tree: No bronchiectasis or mucus plugging. Mediastinum and Felipa: No dominant adenopathy or fluid collection. Pulmonary parenchyma: Dependent changes. Mild respiratory motion. Mild emphysematous changes at the upper lobes. No consolidation or dominant measurable mass. Pleura: No effusion. No pneumothorax. Heart: The heart is notdilated. Mild coronary artery calcifications are seen. Aorta: Thoracic aorta non-dilated. Bones: Unremarkable for age. Tubes, Catheters, and Lines: Port over right upper chest. Soft tissues: Unremarkable. ABDOMEN and PELVIS: Liver: Normal size. Normal density. No suspicious measurable mass. Portal, Superior Mesenteric, and Splenic Veins: Unremarkable. Gallbladder and Biliary Tract: No radiodense calculus. No biliary dilatation. Pancreas: Normal density, no abnormal calcifications or inflammatory process. Spleen: Normal. Adrenals: No masses seen. Kidneys: Normal size, contour and axis. No radiodense stones. No obstructive uropathy. No masses seen . Vasculature: Abdominal aorta non-dilated. Atherosclerotic changes. No significant stenosis. Mild s tenosis at the origin of the celiac artery and SMA. Heavy calcification at the origin of the right c ommon iliac artery causing occlusion. Vessel is reconstituted at the bifurcation. The external cedrick c arteries show marked diminutive caliber bilaterally. Of the right common iliac artery. Moderate s tenosis of left common iliac artery.. Bowel: Small hiatal hernia. No obstruction or bowel wall thickening. Appendix is unremarkable. Lar ge amount of stool in rectum. No perirectal abscess or wall thickening. Minimal diverticulosis. Peritoneal Cavity: No ascites, collection or mesenteric inflammatory response. Lymph Nodes: Within normal limits. Soft Tissues: Unremarkable. Bladder: Symmetric distention, no gross wall thickening. Air bubble presumably related to catheteri zation. Reproductive Organs: Status post hysterectomy. Bones: Degenerative changes and scoliosis. IMPRESSION: 1. No evidence of pulmonary embolism. No acute abnormality in the chest. 2. Large amount of stool in the rectum. No evidence of perirectal abscess. 3. There are severe atherosclerotic changes, with occlusion of the right common iliac artery and mode rate stenosis left common iliac artery. The bilateral external iliac arteries show diminutive calibe r throughout. RADIATION DOSE DELIVERED: Total DLP DATA REPOSITORY: All CT scans at this facility are submitted to the National Radiology Data Registry (NRDR) Dose Index Registry (DIR) with the [employer] (ACR). RADIATION OPTIMIZATION: All CT scans at this facility use at least one of these dose optimization te chniques: automated exposure control; mA and/or kV adjustment per patient size (includes targeted exa ms where dose is matched to clinical indication); or iterative reconstruction.
--- NOTE | 2024-05-17 09:30 | DI.CT_ITS ---
Exam(s) CT HEAD WO EXAM: CT HEAD WO CLINICAL HISTORY: altered mental status, oral cancer. TECHNIQUE: Imaging Protocol: Axial computed tomography images with coronal and sagittal reformatted images were created and reviewed COMPARISON: CT CT HEAD NECK W from 01/17/2024 FINDINGS: Ventricles and Extra axial spaces: Normal in size and morphology for the patient's age. Hemorrhage: None. Cerebral parenchyma: Mild atrophy. No evidence of acute infarct or mass. White matter changes of s mall vessel disease. Midline shift: None. 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 Calvarium: Normal. Visualized Paranasal sinuses:Clear. Mastoids: Clear. Soft Tissues: Unremarkable. ORBITS: Unremarkable. PITUITARY: Not enlarged. Bones chronic deformity of the left mandible partially included on the exam. IMPRESSION: No acute intracranial process. RADIATION DOSE DELIVERED: Total DLP DATA REPOSITORY: All CT scans at this facility are submitted to the National Radiology Data Registry (NRDR) Dose Index Registry (DIR) with the [employer] (ACR). RADIATION OPTIMIZATION: All CT scans at this facility use at least one of these dose optimization te chniques: automated exposure control; mA and/or kV adjustment per patient size (includes targeted exa ms where dose is matched to clinical indication); or iterative reconstruction.
--- NOTE | 2024-05-17 09:44 | W.ED.GENAD ---
Discharge Plan Disposition Patient Disposition: Admit to [facility] Condition: Serious Discharge Details Clinical Impression: Fecal impaction in rectum, Hypomagnesemia, Acute alteration in mental status, Acute UTI Primary Care Provider: Anjali Moe ED Provider: Brian Calderon Home Meds and New Rx's Prescriptions: No Action Xarelto 10 mg tablet 10 mg PO DAILY Qty: 90 1RF citalopram 40 mg tablet 40 mg PO DAILY Qty: 90 3RF cholecalciferol (vitamin D3) 50 mcg (2,000 unit) capsule 50 mcg PO DAILY Qty: 90 3RF cyanocobalamin (vitamin B-12) 1,000 mcg capsule 1,000 mcg PO DAILY Qty: 90 3RF losartan 50 mg tablet 50 mg PO DAILY Patient Comments: [facility] Vascular note 04/18/23 Dr. Monreal.HE chlorhexidine gluconate [Paroex Oral Rinse] 0.12 % mouthwash 15 ml mucous membrane BID Qty: 300 0RF Rx Instructions: Trial mouth cleaning rinse x1 week; STOP if it stings hydroxyzine HCl 25 mg tablet 25 mg PO BID PRN (Reason: Worry, Anxiety, Nausea) Qty: 30 1RF Rx Instructions: Trial for anxiety albuterol sulfate 90 mcg/actuation HFA aerosol inhaler 1 puff INHALATION Q6H PRN PRN (Reason: shortness of breath or wheezing) Qty: 6.7 1RF Rx Instructions: as best dispensed per insurance budesonide 0.25 mg/2 mL suspension for nebulization 0.25 mg inhalation BID Qty: 60 6RF budesonide-formoterol [Symbicort] 160-4.5 mcg/actuation HFA aerosol inhaler 2 puff inhalation BID Qty: 10.2 6RF gabapentin 100 mg capsule 100 mg PO QHS Qty: 90 3RF acetaminophen [Tylenol] 325 MG tablet 650 mg PO Q6H PRN PRN atorvastatin 40 mg tablet 40 mg PO DAILY Qty: 90 3RF ipratropium-albuterol 0.5 mg-3 mg(2.5 mg base)/3 mL solution for nebulization 3 ml inhalation Q6H PRN (Reason: shortness of breath or wheezing) Qty: 180 1RF pantoprazole 40 mg tablet,delayed release (DR/EC) 40 mg PO DAILY Qty: 90 3RF prednisone 5 mg tablet 5 mg PO DAILY Qty: 30 0RF Rx Instructions: Continue 5mg, per RHEUM (interim Rx, ik) potassium chloride 10 mEq tablet extended release 10 meq PO DAILY magnesium oxide 200 mg magnesium tablet 200 mg PO BID Rx Instructions: pt daughter states [facility] advised to take 200mg in the am and if she does not have diarrhea, then take 1 am and 1 pm. if she does have diarrhea, they told her to stop taking, and they would give her infusions instead. nc amlodipine 5 mg tablet 10 mg PO DAILY Qty: 180 3RF HPI General Mode of arrival: ambulatory. Date/Time Provider Initiated Documentation: 05/17/24 09:19. Limitations to Documentation: no limitations. Information obtained by: patient and family. HPI Narrative: 74-year-old female with history of oral squamous cell carcinoma locally invasive, nonresectable, being treated with chemotherapy and radiation therapy, pulmonary embolism, hypertension, diabetes, hyperlipidemia, anxiety, struct of sleep apnea, here with chief complaint of shortness of breath. Patient notes difficulty breathing over the past few days. She denies chest pain. She has associated constipation over the past 4 days. She notes significant confusion. History and ROS limited secondary to confusion/ Related Data Home Medications ?Medication ?Instructions ?Recorded ?Confirmed acetaminophen 325 mg tablet 650 mg PO Q6H PRN PRN 11/23/14 05/17/24 (Tylenol) losartan 50 mg tablet 50 mg PO DAILY 05/03/23 05/17/24 rivaroxaban 10 mg tablet (Xarelto) 10 mg PO DAILY #90 tabs 08/20/23 05/17/24 cholecalciferol (vitamin D3) 50 50 mcg PO DAILY #90 caps 09/03/23 05/17/24 mcg (2,000 unit) capsule citalopram 40 mg tablet 40 mg PO DAILY #90 tabs 09/03/23 05/17/24 cyanocobalamin (vitamin B-12) 1,000 mcg PO DAILY #90 caps 09/03/23 05/17/24 1,000 mcg capsule atorvastatin 40 mg tablet 40 mg PO DAILY #90 tabs 11/14/23 05/17/24 chlorhexidine gluconate 0.12 % 15 ml mucous membrane BID #300 mL 01/09/24 05/17/24 mouthwash (Paroex Oral Rinse) hydroxyzine HCl 25 mg tablet 25 mg PO BID PRN Worry, Anxiety, 01/09/24 05/17/24 Nausea #30 tabs albuterol sulfate 90 mcg/actuation 1 puff inhalation Q6H PRN PRN 01/14/24 05/17/24 aerosol inhaler shortness of breath or wheezing #6.7 grams budesonide 0.25 mg/2 mL suspension 0.25 mg (2 mL) inhalation BID #60 01/14/24 05/17/24 for nebulization mL budesonide-formoterol HFA 160 2 puff inhalation BID #10.2 grams 01/14/24 05/17/24 mcg-4.5 mcg/actuation aerosol inhaler (Symbicort) gabapentin 100 mg capsule 100 mg PO QHS #90 caps 01/14/24 05/17/24 ipratropium 0.5 mg-albuterol 3 mg 3 ml inhalation Q6H PRN shortness 01/14/24 05/17/24 (2.5 mg base)/3 mL nebulization of breath or wheezing #180 mL soln pantoprazole 40 mg tablet,delayed 40 mg PO DAILY #90 tabs 03/17/24 05/17/24 release prednisone 5 mg tablet 5 mg PO DAILY #30 tabs 04/09/24 05/17/24 potassium chloride 10 mEq 10 meq PO DAILY 04/21/24 05/17/24 tablet,extended release magnesium oxide 200 mg PO BID 04/23/24 05/17/24 amlodipine 5 mg tablet 10 mg (2 x 5 mg) PO DAILY #180 tabs 05/13/24 05/17/24 Previous Rx's ?Medication ?Instructions ?Recorded rivaroxaban 10 mg tablet (Xarelto) 10 mg PO DAILY #90 tabs 08/20/23 cholecalciferol (vitamin D3) 50 50 mcg PO DAILY #90 caps 09/03/23 mcg (2,000 unit) capsule citalopram 40 mg tablet 40 mg PO DAILY #90 tabs 09/03/23 cyanocobalamin (vitamin B-12) 1,000 mcg PO DAILY #90 caps 09/03/23 1,000 mcg capsule atorvastatin 40 mg tablet 40 mg PO DAILY #90 tabs 11/14/23 chlorhexidine gluconate 0.12 % 15 ml mucous membrane BID #300 mL 01/09/24 mouthwash (Paroex Oral Rinse) hydroxyzine HCl 25 mg tablet 25 mg PO BID PRN Worry, Anxiety, 01/09/24 Nausea #30 tabs albuterol sulfate 90 mcg/actuation 1 puff inhalation Q6H PRN PRN 01/14/24 aerosol inhaler shortness of breath or wheezing #6.7 grams budesonide 0.25 mg/2 mL suspension 0.25 mg (2 mL) inhalation BID #60 01/14/24 for nebulization mL budesonide-formoterol HFA 160 2 puff inhalation BID #10.2 grams 01/14/24 mcg-4.5 mcg/actuation aerosol inhaler (Symbicort) gabapentin 100 mg capsule 100 mg PO QHS #90 caps 01/14/24 ipratropium 0.5 mg-albuterol 3 mg 3 ml inhalation Q6H PRN shortness 01/14/24 (2.5 mg base)/3 mL nebulization of breath or wheezing #180 mL soln pantoprazole 40 mg tablet,delayed 40 mg PO DAILY #90 tabs 03/17/24 release prednisone 5 mg tablet 5 mg PO DAILY #30 tabs 04/09/24 amlodipine 5 mg tablet 10 mg (2 x 5 mg) PO DAILY #180 tabs 05/13/24 Allergies Allergy/AdvReac Type Severity Reaction Status Date / Time clarithromycin Allergy Severe HIVES Verified 03/26/24 05:49 Penicillins Allergy Severe HIVES Verified 03/26/24 05:49 tetracycline Allergy Severe HIVES, Verified 03/26/24 05:49 HALLUCINATIONS eszopiclone (Eszopiclone) Allergy Unknown pt unsure Verified 03/26/24 05:49 of reaction telithromycin (Telithromycin) Allergy Unknown pt unsure Verified 03/26/24 05:49 raloxifene HCl (From Evista) AdvReac Intermediate BODY ACHES Verified 03/26/24 05:49 sulfamethoxazole (From AdvReac Intermediate HEADACHE,VO Verified 03/26/24 05:49 Bactrim) MITING trimethoprim (From Bactrim) AdvReac Intermediate HEADACHE,VO Verified 03/26/24 05:49 MITING alendronate sodium AdvReac Mild BODY ACHE Verified 03/26/24 05:49 codeine AdvReac Mild GI UPSET Verified 03/26/24 05:49 risedronate sodium (From AdvReac Mild BODY ACHES Verified 03/26/24 05:49 Actonel) Bisphosphonates AdvReac Unknown achy joints Verified 03/26/24 05:49 hydrocodone (Hydrocodone) AdvReac Unknown vomitting Verified 03/26/24 05:49 Macrolide Antibiotics AdvReac Unknown vomitting Verified 03/26/24 05:49 and hallucinations morphine AdvReac Unknown pt. felt Verified 03/26/24 05:49 like she was floating, states she thinks she got to Sulfa (Sulfonamide AdvReac Other (See Verified 03/26/24 05:49 Antibiotics) Comment) General Stated Complaint: GenMedical TENA: 2 Review of Systems All systems reviewed & are unremarkable except as noted in HPI and below Constitutional Constitutional: Denies fever(s) Cardiovascular Cardiovascular: Denies chest pain Gastrointestinal Gastrointestinal: Reports abdominal pain Exam Const General: cooperative HENMT Mouth: moist mucous membranes Other: left facial erythema Eyes Conjunctivae: normal conjunctivae Sclera: normal sclerae Neck Neck: trachea midline and supple Resp Effort & Inspection: tachypneic Auscultation: clear to auscultation bilaterally, no rales, no rhonchi and no wheezes Cardio Rate: regular rate and not tachycardic Rhythm: regular rhythm GI Palpation: soft, not firm, no guarding, no masses, not rigid and tender in the LLQ Skin General skin exam: no rashes or lesions noted Neuro General: patient alert, patient awake, tone normal and patient confused Cognition: abnormal cognition Motor: strength 5/5 throughout Sensory Exam: no sensory deficits noted Extrem General: no edema Psych Appearance: grossly normal Affect: anxious affect Course Vital Signs Vital signs: Vital Signs Temperature 37.2 C 05/17/24 09:22 Pulse 83 05/17/24 09:22 Respiratory Rate 05/17/24 09:22 Blood Pressure 160/105 H 05/17/24 09:22 Pulse Oximetry 99 05/17/24 09:22 Temperature 37.2 C 05/17/24 09:28 Temperature Source Tympanic 05/17/24 09:28 Pulse 83 05/17/24 09:28 Respiratory Rate 23 05/17/24 09:28 Respiratory Effort Short of Breath 05/17/24 09:26 Blood Pressure 160/105 H 05/17/24 09:28 Blood Pressure Position Sitting 05/17/24 09:28 Pulse Oximetry 99 05/17/24 09:28 Oxygen Delivery Method Room Air 05/17/24 09:28 Oxygen Flow Rate 0 05/17/24 09:28 Pain Level 0 05/17/24 09:28 Procedures Rectal Disimpaction Time Out Performed: Yes Indication: fecal impaction Procedural Sedation: No Sedation/Analgesia: none Technique: manual disimpaction with gloved finger Result: significant stool output Patient Tolerated Procedure: well Complications: pain Additional Comments: No bleeding. F.leets enema administered post disimpaction Medical Decision Making 1000-- 74-year-old female with multiple medical problems including oral squamous cell carcinoma, locally invasive, being treated with chemotherapy and radiation, pulmonary embolism in the past, here with altered mental status, shortness of breath and constipation. Patient does have some abdominal tenderness left lower quadrant. Screening EKG was reviewed and interpreted by me: Please see report, sinus rhythm 75 bpm, no STEMI. Patient currently with dyspnea and tachypnea. Saturating well. Patient is quite anxious. Will give Ativan 1 mg IV. Consider acute pulmonary embolism. Plan to obtain CT of the chest. Patient did recently have G-tube and is now having decreased bowel movements with abdominal discomfort and tenderness in left lower quadrant. Consider bowel obstruction. Plan to obtain CT of the abdomen pelvis. Given patient's acute altered mental status, consider intracranial pathology versus chemo side effect. Will obtain CT of the head. 1400 --CT of the head was interpreted by radiology:No acute intracranial findings. No significant change when compared with the patient's prior exam. Left mandibular abnormality is seen on the most inferior images, also previously identified and presumably related to the stated history of oral cancer. CTA of the chest, abdomen and pelvis interpreted by radiology:1. No pulmonary embolism. No acute dissection. 2. 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 No acute intrathoracic or intra-abdominal process. Patient continued to have rectal pain. Patient provided informed consent for rectal disimpaction which was performed with female nurse monorail hooker present. Please see procedure note. Given degree of hypomagnesemia, altered mental status, generalized weakness, plan to hospitalize for further treatment. Lab Data Lab results reviewed: Yes I reviewed the patient's lab results. Labs: 05/17/24 11:25 Urine - Reflex from Ua Urine Culture - Pending Laboratory Tests Range/Units 09/15/24 09/15/24 09/15/24 10:00 11:00 11:25 WBC (4.4-10.8) 10^3/uL 6.66 RBC (3.93-5.22) 10^6/uL 4.27 Hgb (11.2-15.7) g/dL 13.1 Hct (36.0-46.0) % 40.0 MCV (80-95) fL 94 MCH (27.0-33.0) pg 30.7 MCHC (32.0-36.0) % 32.8 RDW (11.7-14.6) % 14.9 H Plt Count (130-400) 10^3/uL 146 MPV (8.0-11.0) fL 9.8 Immature Gran % % 2.3 Neutrophils % % 79.0 Lymphocytes % % 8.9 Monocytes % % 9.5 Eosinophils % % 0.0 Basophils % % 0.3 Nucleated RBC % (0.0-0.3) % 0.0 Absolute Neutrophils (1.2-6.7) 10^3/uL 5.27 Absolute Lymphocytes (1.2-3.4) 10^3/uL 0.59 L Absolute Monocytes (0.1-0.8) 10^3/uL 0.63 Absolute Eosinophils (0.0-0.7) 10^3/uL 0.00 Absolute Basophils (0.0-0.2) 10^3/uL 0.02 APTT (23.6-32.8) sec 18.5 L Sodium (136-145) mmol/L 135 L Potassium (3.5-5.1) mmol/L 3.6 Chloride (98-107) mmol/L 96 L Carbon Dioxide (21.0-32.0) mmol/L 25.5 Anion Gap (3-11) mmol/L 13.5 H BUN (7-18) mg/dL 25 H Creatinine (0.55-1.02) mg/dL 1.0 Est GFR (CKD-EPI 2020) (mL/min/1.73m2) 58.75 Glucose (74-106) mg/dL 101 Calcium (8.5-10.1) mg/dL 10.5 H Magnesium (1.8-2.4) mg/dL 0.8 L Total Bilirubin (0.2-1.0) mg/dL 0.77 AST (15-37) U/L 17 ALT (14-59) U/L 27 Alkaline Phosphatase (46-116) U/L 52 Troponin I (<or=51) ng/L 23 23 Total Protein (6.4-8.2) g/dL 7.3 Albumin (3.4-5.0) g/dL 3.5 Urine Color (Yellow) Yellow Urine Clarity (Clear) Sl Cloudy Urine pH (5-8) 6.0 Ur Specific [place] (1.005-1.025) 1.015 Urine Protein (Neg-Trace) mg/dL Negative Urine Ketones (Negative) mg/dL Negative Urine Blood (Negative) Negative Urine Nitrite (Negative) Negative Urine Bilirubin (Negative) Negative Urine Urobilinogen (Up to 0.2) mg/dL 0.2 Ur Leukocyte Esterase (Negative) Trace H Urine RBC (0-2) HPF 0-2 Urine WBC (0-5) HPF 10-20 H Ur Epithelial Cells (Negative) HPF Rare Urine Crystals (Negative) HPF Negative Urine Bacteria (Negative) HPF Many Urine Casts (Negative) LPF Negative Urine Mucus (Negative) Negative Ur Culture Indicated? Yes Urine Glucose (Negative) mg/dL Negative COVID-19 Source Nasopharynx SARS-CoV-2 (PCR) (Negative) Negative Influenza Type A (PCR) (Negative) Negative Influenza Type B (PCR) (Negative) Negative RSV (PCR) (Negative) Negative Range/Units 05/17/24 12:20 WBC (4.4-10.8) 10^3/uL RBC (3.93-5.22) 10^6/uL Hgb (11.2-15.7) g/dL Hct (36.0-46.0) % MCV (80-95) fL MCH (27.0-33.0) pg MCHC (32.0-36.0) % RDW (11.7-14.6) % Plt Count (130-400) 10^3/uL MPV (8.0-11.0) fL Immature Gran % % Neutrophils % % Lymphocytes % % Monocytes % % Eosinophils % % Basophils % % Nucleated RBC % (0.0-0.3) % Absolute Neutrophils (1.2-6.7) 10^3/uL Absolute Lymphocytes (1.2-3.4) 10^3/uL Absolute Monocytes (0.1-0.8) 10^3/uL Absolute Eosinophils (0.0-0.7) 10^3/uL Absolute Basophils (0.0-0.2) 10^3/uL APTT (23.6-32.8) sec Sodium (136-145) mmol/L Potassium (3.5-5.1) mmol/L Chloride (98-107) mmol/L Carbon Dioxide (21.0-32.0) mmol/L Anion Gap (3-11) mmol/L BUN (7-18) mg/dL Creatinine (0.55-1.02) mg/dL Est GFR (CKD-EPI 2020) (mL/min/1.73m2) Glucose (74-106) mg/dL Calcium (8.5-10.1) mg/dL Magnesium (1.8-2.4) mg/dL Total Bilirubin (0.2-1.0) mg/dL AST (15-37) U/L ALT (14-59) U/L Alkaline Phosphatase (46-116) U/L Troponin I (<or=51) ng/L Cancelled Total Protein (6.4-8.2) g/dL Albumin (3.4-5.0) g/dL Urine Color (Yellow) Urine Clarity (Clear) Urine pH (5-8) Ur Specific [place] (1.005-1.025) Urine Protein (Neg-Trace) mg/dL Urine Ketones (Negative) mg/dL Urine Blood (Negative) Urine Nitrite (Negative) Urine Bilirubin (Negative) Urine Urobilinogen (Up to 0.2) mg/dL Ur Leukocyte Esterase (Negative) Urine RBC (0-2) HPF Urine WBC (0-5) HPF Ur Epithelial Cells (Negative) HPF Urine Crystals (Negative) HPF Urine Bacteria (Negative) HPF Urine Casts (Negative) LPF Urine Mucus (Negative) Ur Culture Indicated? Urine Glucose (Negative) mg/dL COVID-19 Source SARS-CoV-2 (PCR) (Negative) Influenza Type A (PCR) (Negative) Influenza Type B (PCR) (Negative) RSV (PCR) (Negative) Quality:SDOH Health Related Social Needs: No Data to Display PFSH All Active Problems (Updated 05/17/24 @ 14:46 by Kate Medley NP) Discharge planning issues (Acute) DVT prophylaxis (Acute) Encephalopathy acute (Acute) Acute UTI (Acute) Acute alteration in mental status (Acute) Hypomagnesemia (Acute) Fecal impaction in rectum (Acute) Cancer of oral cavity (Acute) [facility] code from 04.29.24 note.HE Cancer related pain (Acute) 04/08/24 [facility] Hem/Onc note Dysphagia (Acute) 04/08/24 [facility] Hem/Onc note VTE (venous thromboembolism) (Acute) 04/08/24 [facility] Hem/Onc note Hypomagnesemia (Acute) 04/08/24 [facility] Hem/Onc note 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 positioning? during PFT (~05/22/23) Lip pain (Acute) inner lip pain, into left inner cheek (apthous ulcer? thrush? referred jam/TMJ pain?) Pain in lower jaw (Acute) Other pulmonary embolism without acute cor pulmonale (Acute Unknown) Massive PE, Apr 08, 2022 per pt report .. [facility] note 04/16/23.HE MEHUL treated with BiPAP (Acute) Bronchiectasis (Acute) Former smoker (Acute) Dyspnea on exertion (Acute) Pulmonary emphysema (Acute) Benign essential hypertension (Acute 04/10/13) Increased appetite (Acute) Fall (Acute) Anticoagulant long-term use (Acute) Xarelto.. Hx Eliquis, PE, 2019 Diarrhea (Acute) Prediabetes (Acute) 10/2022: 5.9 .. 09/2021: 5.7.. Bronchitis (Acute) Hearing loss, bilateral (Acute) Fatigue (Acute) Macrocytosis (Acute) Hypokalemia (Acute) PAD (peripheral artery disease) (Chronic) focal rt common iliac artery stenosis per CARD notes, ID in 2019 Peripheral vascular disease (Chronic) Orthostasis (Acute) Polymyalgia rheumatica (Acute 10/12/11) Temporal arteritis (Acute) Depressive disorder, not elsewhere classified (Acute 10/12/11) Lumbago (Acute 12/10/12) Esophageal reflux (Acute 12/10/12) EGD 05/25/13 KD: mild antritis and distal esophagitis; int metaplasia, no dysplasia Allergic rhinitis, unspecified (Acute 12/10/12) Neoplasm of unspecified behavior of bone, soft tissue, and skin (Acute) Leukoplakia of oral cavity (Acute) Anxiety and depression (Chronic) DJD (degenerative joint disease) (Chronic) Osteoarthritis (Chronic) GERD (gastroesophageal reflux disease) (Chronic) Medical History Urinary bladder incontinence (~04/2024) 04/27/24 intermittent and U/A done at [facility] Hem/Onc Buccal mass Primary hypertension Hx of adenomatous colonic polyps (~05/2019) villous adenoma History of pulmonary embolism Pulmonary embolism 2019 .. Eliquis, then Xarelto.. Diverticulosis 05/12/[address] Mariela Arizmendi, [facility] Colon polyps Abnormal colonoscopy (11/11/15) 11/11/15 Dr Brizuela, sessile serrated adenoma, repeat 3 years. mg Adenomatous colon polyp 11/11/15 Dr Brizuela, sessile serrated adenoma, repeat 3 years. mg Benign paroxysmal vertigo (10/12/11) Midline cystocele (12/10/12) pt. unsure Obstructive sleep apnea (adult) (pediatric) (01/19/13) Stopped BIPAP, 2020. severe, Dr. Greer, on auto Bi-Level bipap Obesity (12/10/12) Restless legs (01/19/13) Dr. Greer Sensorineural hearing loss, bilateral (06/03/14) Tinnitus (06/03/14) Vertigo (06/03/14) Serrated polyp of colon (11/11/15) Hyperlipemia Surgical History Status post gastrostomy tube placement, follow-up exam (~03/26/24) History of temporal artery biopsy Hx of colonoscopy History of cardiac cath Hysterectomy, Laproscopic Bilateral salpingectomy with oophorectomy (~12/2006) Family History Sister Cancer Breast cancer Father Heart disease Mother Heart disease Brother Heart disease PR Social History Smoking/Tobacco Use Status: Former Tobacco Use Quit Date: 09/02/99 Tobacco: How many years used: 20 Smoking risk assessment performed?: Yes Alcohol Intake: former Drug use: Never Substance use type: does not use Adopted: No Caregiver/Support person: No Foster care: No Housing: house Number of Children: 3 number of grandchildren: 4 Communication Needs: Hard of Hearing Education Level: high school current occupation: Retired Pets and animals: Yes Pets and animals: dog(s) Sexually active: No Do you think of yourself as: straight/heterosexual Current gender identity: female What is your relationship status?: How often do you talk on the phone with friends or family?: three or more times per week How often do you get together with friends or relatives?: once per week Do you belong to any clubs or organized social groups?: no Panel score (0-1 are the most socially isolated patients): 2 What type of physical activity do you participate in: none Dilia/Mosque: Restoration Special dilia needs: No Seatbelt use: always Drive intox or ride w/intox feedmobile driver: No Do you feel safe at home: Yes Do you feel safe in your relationship?: Yes Additional Social history: Lives with of 55 years in [place]. She has 3 kids who live close. 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
[2024-05-17] MEDS: LORazepam 2 MG/ML VIAL 1 MG IVP (10:01)
[2024-05-17 10:07] LABS: Abs Immature Grans 0.15 10^3/uL (0.0-0.06); Absolute Basophil Count 0.02 10^3/uL (0.0-0.2); Absolute Lymphocyte Count 0.59 10^3/uL (1.2-3.4); Absolute Monocyte Count 0.63 10^3/uL (0.1-0.8); Absolute Neutrophil Count 5.27 10^3/uL (1.2-6.7); Basophils % 0.3 %; HGB 13.1 g/dL (11.2-15.7); Immature Grans % 2.3 %; Lymphocytes % 8.9 %; MCH 30.7 pg (27.0-33.0); MCHC 32.8 % (32.0-36.0); MCV 94 fL (80-95); MPV 9.8 fL (8.0-11.0); Monocytes % 9.5 %; Platelet Count 146 10^3/uL (130-400); RBC 4.27 10^6/uL (3.93-5.22); RDW 14.9 % (11.7-14.6); RDW-SD 50.4 fL; WBC 6.66 10^3/uL (4.4-10.8)
[2024-05-17] MEDS: Normal Saline - Diluent 50 ML VIAL IJ (10:14)
[2024-05-17 10:20] LABS: PTT Activated 18.5 sec (23.6-32.8)
[2024-05-17 10:26] LABS: ALT 27 U/L (14-59); AST 17 U/L (15-37); Albumin 3.5 g/dL (3.4-5.0); Alkaline Phosphatase 52 U/L (46-116); Anion Gap 13.5 mmol/L (3-11); BUN 25 mg/dL (7-18); Bilirubin, Total 0.77 mg/dL (0.2-1.0); CO2 25.5 mmol/L (21.0-32.0); Calcium 10.5 mg/dL (8.5-10.1); Chloride 96 mmol/L (98-107); Estimated GFR 58.75 (mL/min/1.73m2); Glucose 101 mg/dL (74-106); Magnesium 0.8 mg/dL (1.8-2.4); Potassium 3.6 mmol/L (3.5-5.1); Sodium 135 mmol/L (136-145); Total Protein 7.3 g/dL (6.4-8.2); Troponin I 23 ng/L (<or=51)
[2024-05-17] MEDS: MAGNESIUM SULFATE 2 GM/50 ML BAG IVINF ×2 (10:46→17:31)
[2024-05-17 10:56] LABS: COVID-19 PCR Negative (Negative); Influenza A PCR Negative (Negative); Influenza B PCR Negative (Negative); RSV PCR Negative (Negative)
[2024-05-17 10:58] LABS: Source Nasopharynx
[2024-05-17 11:26] LABS: Troponin I 23 ng/L (<or=51)
[2024-05-17 11:32] LABS: Bilirubin Negative (Negative); Blood Negative (Negative); Clarity Sl Cloudy (Clear); Glucose Negative (Negative); Ketones Negative (Negative); Leukocyte Esterase Trace (Negative); Nitrite Negative (Negative); Specific Gravity 1.015 (1.005-1.025); Urobilinogen 0.2 mg/dL (Up to 0.2)
[2024-05-17 11:40] LABS: Bacteria Many HPF (Negative); C & S Indicated? Yes; Casts Negative LPF (Negative); Crystals Negative HPF (Negative); Epithelial Cells Rare HPF (Negative); Mucus Negative (Negative); RBC 0-2 HPF (0-2)
--- NOTE | 2024-05-17 12:26 | DI.VRAD_ITS ---
PROCEDURE INFORMATION: Exam: CT Head Without Contrast Exam date and time: 05/17/2024 11:33 AM Age: 74 years old Clinical indication: Other: Altered mental status, oral cancer TECHNIQUE: Imaging protocol: Computed tomography of the head without contrast. COMPARISON: CT HEAD NECK W 01/17/2024 8:20 AM FINDINGS: Brain: There is mild ventricular, cortical sulcal prominence consistent with mild atrophy in the patient's age. There is no evidence of acute hemorrhage. There is no mass or shift. There is no acute cortical or major vascular territory infarct. There is some nonspecific low attenuation involving the periventricular white matter which may be related to small vessel change/microangiopathy. There are foci of remote tissue loss noted bilaterally in the cerebellum which were previously identified. There are no new extra-axial collections. There is no shift or herniation. Cerebral ventricles: There is no significant ventricular enlargement/hydrocephalus. Ventricular size is stable. Paranasal sinuses: There is no significant sinus opacification or fluid level Mastoid air cells: There is no significant mastoid or middle ear opacification Orbital cavities: Patient has had prior bilateral lens replacement. There is no significant orbital abnormality Bones: There is lucency involving the left mandibular ramus seen on the most inferior images incompletely evaluated on this exam. This was also previously noted. No definite new bony abnormality is identified. Soft tissues: Subcutaneous soft tissues are unremarkable IMPRESSION: No acute intracranial findings. No significant change when compared with the patient's prior exam. Left mandibular abnormality is seen on the most inferior images, also previously identified and presumably related to the stated history of oral cancer. Dictated and Authenticated by: Mariela Gerard MD. Ordering:DAVION Torres MD
--- NOTE | 2024-05-17 13:15 | DI.VRAD_ITS ---
PROCEDURE INFORMATION: Exam: CTA Chest With Contrast CTA Abdomen With Contrast Exam date and time: 05/17/2024 11:50 AM Age: 74 years old Clinical indication: Other: SOB, rectal pain; H/o pe TECHNIQUE: Imaging protocol: Computed tomographic angiography of the chest with contrast. Exam focused on the arteries. Computed tomographic angiography of the abdomen with contrast. Exam focused on the arteries. 3D rendering (Not supervised by radiologist): MIP and/or 3D reconstructed images were created by the technologist. Contrast material: OMNIPAQUE 350; Contrast volume: 100 ml; Contrast route: INTRAVENOUS (IV); COMPARISON: CT CHEST PE ABD PELVIS W 03/26/2024 7:33 AM FINDINGS: Tubes, catheters and devices: Right internal jugular infusion port. VASCULATURE: Pulmonary arteries: Normal. No pulmonary emboli. Aorta: Calcified atheromas of the infrarenal aorta with no significant stenosis. Celiac trunk and mesenteric arteries: Calcified atheromas at the origin of the celiac artery with mild stenosis. Calcified atheromas at the origin of the superior mesenteric artery with mild stenosis. Renal arteries: No occlusion or significant stenosis. Right iliac arteries: Calcified atheroma of the right common iliac artery with severe stenosis. The perfusion of the distal external iliac arteries. Left iliac arteries: Calcified atheroma of the left common iliac artery with moderate stenosis. CHEST: Lungs: Bilateral apical fibrotic changes. Bilateral lower lobe atelectasis. No acute infiltrates. Pleural spaces: Unremarkable. No pneumothorax. No pleural effusion. Heart: Unremarkable. No cardiomegaly. No pericardial effusion. ABDOMEN AND PELVIS: Liver: No mass. Gallbladder and biliary ducts: Unremarkable. No calcified stones. No ductal dilation. Pancreas: Unremarkable. No mass. No ductal dilation. Spleen: Unremarkable. No splenomegaly. Adrenal glands: Unremarkable. No mass. Kidneys: Simple cyst in the interpolar region of the right kidney measuring 4 mm. No hydronephrosis on either side. Stomach and bowel: Unremarkable. No obstruction. No mucosal thickening. Intraperitoneal space: Unremarkable. No free air. No significant fluid collection. Lymph nodes: Unremarkable. No enlarged lymph nodes. Bones/joints: Mild curvature of the thoracic spine convex right multilevel anterior osteophytes of the thoracic spine. Mild degenerative disease bilateral sacroiliac joints and bilateral hip joints. Mild curvature of the lumbar spine convex to the right. Mild degenerative disease of the symphysis pubis. Posterior osteophyte disc complex at L2-L3 with mild bony canal stenosis. Soft tissues: Unremarkable. IMPRESSION: 1. No pulmonary embolism. No acute dissection. 2. 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 No acute intrathoracic or intra-abdominal process. Dictated and Authenticated by: Wally Tejeda MD. Ordering:DAVION Torres MD
[2024-05-17] MEDS: CIPROFLOXACIN 400 MG/200 ML BAG 200 MG IVPB (14:15)
[2024-05-17] MEDS: Na Phosphate Enema-Adult 133 ML BTL PR (14:16)
--- NOTE | 2024-05-17 14:23 | W.PM.HP.N ---
Date of service: 05/17/24 Time of Service: 14:23 Assessment and Plan Assessment and plan (1) Encephalopathy acute: Status: Acute Assessment and plan: presumed to be infectious d/t UTI head CT No acute intracranial findings. No significant change when compared with the patient's prior exam. Left mandibular abnormality is seen on the most inferior images, also previously identified and presumably related to the stated history of oral cancer. (2) Acute UTI: Status: Acute Assessment and plan: continue cipro 400 mg IV BID cultures pending (3) Hypomagnesemia: Status: Acute Assessment and plan: mag level 0.8 takes mag BID replete IV, given 2 gm IVPB and will give 2 gm additionally follow labs. (4) Fecal impaction in rectum: Status: Acute Assessment and plan: disimpacted in the ED continue aggressive bowel management (5) Cancer of oral cavity: Status: Acute Assessment and plan: followed by [facility] pain management topical and oral (6) Anticoagulant long-term use: Status: Acute Assessment and plan: for history of PE, no acute PE on imaging today continue anticoagulation (7) Polymyalgia rheumatica: Status: Acute Assessment and plan: continue daily prednisone low threshold for stress dosing if hemodynamically (8) DVT prophylaxis: Status: Acute Assessment and plan: fully anticoagulated on xarelto teds, scds (9) Discharge planning issues: Status: Acute Assessment and plan: anticipate discharge to home +/- home health services vs prison discussed with DR Tinajero History of Present Illness History of Present Illness Chief Complaint: confusion Narrative: This is a 74-year-old female patient complex past medical history including oral squamous cell carcinoma, history of PE anticoagulated on rivaroxaban MEHUL treated with BiPAP pulmonary emphysema, hypertension, polymyalgia rheumatica who presented to the emergency department with complaints of confusion and shortness of breath. Workup in the emergency significant for urinary tract infection for which she was started on ciprofloxacin CAT scan of the chest does not show any pulmonary embolism or pulmonary findings. Lab findings significant for magnesium of 0.8. Hospitalist services was contacted and she is being admitted to the hospital for encephalopathy presumed infectious from UTI with hypomagnesemia. She has had no fever no chills no rashes or new lesions no abdominal pain nausea vomiting or diarrhea. She has been complaining of constipation and was disimpacted in the emergency department with good effect. She was also provided an enema as they were unable to fully evacuate all contents. Hemodynamically she has remained stable. Review of Systems All systems reviewed & are unremarkable except as noted in HPI and below PFSH All Active Problems (Updated 05/17/24 @ 15:22 by MENDEZ AMIN) Discharge planning issues (Acute) DVT prophylaxis (Acute) Encephalopathy acute (Acute) Acute UTI (Acute) Acute alteration in mental status (Acute) Hypomagnesemia (Acute) Fecal impaction in rectum (Acute) Cancer of oral cavity (Acute) [facility] code from 04.29.24 note.HE Cancer related pain (Acute) 04/08/24 [facility] Hem/Onc note Dysphagia (Acute) 04/08/24 [facility] Hem/Onc note VTE (venous thromboembolism) (Acute) 04/08/24 [facility] Hem/Onc note Hypomagnesemia (Acute) 04/08/24 [facility] Hem/Onc note 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 positioning? during PFT (~05/22/23) Lip pain (Acute) inner lip pain, into left inner cheek (apthous ulcer? thrush? referred jam/TMJ pain?) Pain in lower jaw (Acute) Other pulmonary embolism without acute cor pulmonale (Acute Unknown) Massive PE, Apr 08, 2022 per pt report .. [facility] note 04/16/23.HE MEHUL treated with BiPAP (Acute) Bronchiectasis (Acute) Former smoker (Acute) Dyspnea on exertion (Acute) Pulmonary emphysema (Acute) Benign essential hypertension (Acute 04/10/13) Increased appetite (Acute) Fall (Acute) Anticoagulant long-term use (Acute) Xarelto.. Hx Eliquis, PE, 2020 Diarrhea (Acute) Prediabetes (Acute) 10/2022: 5.9 .. 09/2021: 5.7.. Bronchitis (Acute) Hearing loss, bilateral (Acute) Fatigue (Acute) Macrocytosis (Acute) Hypokalemia (Acute) PAD (peripheral artery disease) (Chronic) focal rt common iliac artery stenosis per CARD notes, ID in 2020 Peripheral vascular disease (Chronic) Orthostasis (Acute) Polymyalgia rheumatica (Acute 10/12/11) Temporal arteritis (Acute) Depressive disorder, not elsewhere classified (Acute 10/12/11) Lumbago (Acute 12/10/12) Esophageal reflux (Acute 12/10/12) EGD 05/25/13 KD: mild antritis and distal esophagitis; int metaplasia, no dysplasia Allergic rhinitis, unspecified (Acute 12/10/12) Neoplasm of unspecified behavior of bone, soft tissue, and skin (Acute) Leukoplakia of oral cavity (Acute) Anxiety and depression (Chronic) DJD (degenerative joint disease) (Chronic) Osteoarthritis (Chronic) GERD (gastroesophageal reflux disease) (Chronic) Medical History Urinary bladder incontinence (~04/2024) 04/27/24 intermittent and U/A done at [facility] Hem/Onc Buccal mass Primary hypertension Hx of adenomatous colonic polyps (~05/2019) villous adenoma History of pulmonary embolism Pulmonary embolism 2019 .. Eliquis, then Xarelto.. Diverticulosis 05/12/[address] Mariela Arizmendi, [facility] Colon polyps Abnormal colonoscopy (11/11/15) 11/11/15 Dr Brizuela, sessile serrated adenoma, repeat 3 years. mg Adenomatous colon polyp 11/11/15 Dr Brizuela, sessile serrated adenoma, repeat 3 years. mg Benign paroxysmal vertigo (10/12/11) Midline cystocele (12/10/12) pt. unsure Obstructive sleep apnea (adult) (pediatric) (01/19/13) Stopped BIPAP, 2019. severe, Dr. Greer, on auto Bi-Level bipap Obesity (12/10/12) Restless legs (01/19/13) Dr. Greer Sensorineural hearing loss, bilateral (06/03/14) Tinnitus (06/03/14) Vertigo (06/03/14) Serrated polyp of colon (11/11/15) Hyperlipemia Surgical History Status post gastrostomy tube placement, follow-up exam (~03/26/24) History of temporal artery biopsy Hx of colonoscopy History of cardiac cath Hysterectomy, Laproscopic Bilateral salpingectomy with oophorectomy (~12/2006) Family History Sister Cancer Breast cancer Father Heart disease Mother Heart disease Brother Heart disease [place] Social History Smoking/Tobacco Use Status: Former Tobacco Use Quit Date: 09/02/99 Tobacco: How many years used: 20 Smoking risk assessment performed?: Yes Alcohol Intake: former Drug use: Never Substance use type: does not use Adopted: No Caregiver/Support person: No Foster care: No Housing: house Number of Children: 3 number of grandchildren: 4 Communication Needs: Hard of Hearing Education Level: high school current occupation: Retired Pets and animals: Yes Pets and animals: dog(s) Sexually active: No Do you think of yourself as: straight/heterosexual Current gender identity: female What is your relationship status?: How often do you talk on the phone with friends or family?: three or more times per week How often do you get together with friends or relatives?: once per week Do you belong to any clubs or organized social groups?: no Panel score (0-1 are the most socially isolated patients): 2 What type of physical activity do you participate in: none Dilia/Scientology: Voodoo Special dilia needs: No Seatbelt use: always Drive intox or ride w/intox charter and tour 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 She has 3 kids who live close. 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 Meds Allergies and Home Medications Allergies Allergy/AdvReac Type Severity Reaction Status Date / Time clarithromycin Allergy Severe HIVES Verified 03/26/24 05:49 Penicillins Allergy Severe HIVES Verified 03/26/24 05:49 tetracycline Allergy Severe HIVES, Verified 03/26/24 05:49 HALLUCINATIONS eszopiclone (Eszopiclone) Allergy Unknown pt unsure Verified 03/26/24 05:49 of reaction telithromycin (Telithromycin) Allergy Unknown pt unsure Verified 03/26/24 05:49 raloxifene HCl (From Evista) AdvReac Intermediate BODY ACHES Verified 03/26/24 05:49 sulfamethoxazole (From AdvReac Intermediate HEADACHE,VO Verified 03/26/24 05:49 Bactrim) MITING trimethoprim (From Bactrim) AdvReac Intermediate HEADACHE,VO Verified 03/26/24 05:49 MITING alendronate sodium AdvReac Mild BODY ACHE Verified 03/26/24 05:49 codeine AdvReac Mild GI UPSET Verified 03/26/24 05:49 risedronate sodium (From AdvReac Mild BODY ACHES Verified 03/26/24 05:49 Actonel) Bisphosphonates AdvReac Unknown achy joints Verified 03/26/24 05:49 hydrocodone (Hydrocodone) AdvReac Unknown vomitting Verified 03/26/24 05:49 Macrolide Antibiotics AdvReac Unknown vomitting Verified 03/26/24 05:49 and hallucinations morphine AdvReac Unknown pt. felt Verified 03/26/24 05:49 like she was floating, states she thinks she got to Sulfa (Sulfonamide AdvReac Other (See Verified 03/26/24 05:49 Antibiotics) Comment) Home Medications ?Medication ?Instructions ?Recorded ?Confirmed ?Type acetaminophen 325 mg tablet 650 mg PO Q6H PRN PRN 11/23/14 05/17/24 History (Tylenol) losartan 50 mg tablet 50 mg PO DAILY 05/03/23 05/17/24 History rivaroxaban 10 mg tablet (Xarelto) 10 mg PO DAILY #90 tabs 08/20/23 05/17/24 Rx cholecalciferol (vitamin D3) 50 50 mcg PO DAILY #90 caps 09/03/23 05/17/24 Rx mcg (2,000 unit) capsule citalopram 40 mg tablet 40 mg PO DAILY #90 tabs 09/03/23 05/17/24 Rx cyanocobalamin (vitamin B-12) 1,000 mcg PO DAILY #90 caps 09/03/23 05/17/24 Rx 1,000 mcg capsule atorvastatin 40 mg tablet 40 mg PO DAILY #90 tabs 11/14/23 05/17/24 Rx chlorhexidine gluconate 0.12 % 15 ml mucous membrane BID #300 mL 01/09/24 05/17/24 Rx mouthwash (Paroex Oral Rinse) hydroxyzine HCl 25 mg tablet 25 mg PO BID PRN Worry, Anxiety, 01/09/24 05/17/24 Rx Nausea #30 tabs albuterol sulfate 90 mcg/actuation 1 puff inhalation Q6H PRN PRN 01/14/24 05/17/24 Rx aerosol inhaler shortness of breath or wheezing #6.7 grams budesonide 0.25 mg/2 mL suspension 0.25 mg (2 mL) inhalation BID #60 01/14/24 05/17/24 Rx for nebulization mL budesonide-formoterol HFA 160 2 puff inhalation BID #10.2 grams 01/14/24 05/17/24 Rx mcg-4.5 mcg/actuation aerosol inhaler (Symbicort) gabapentin 100 mg capsule 100 mg PO QHS #90 caps 01/14/24 05/17/24 Rx ipratropium 0.5 mg-albuterol 3 mg 3 ml inhalation Q6H PRN shortness 01/14/24 05/17/24 Rx (2.5 mg base)/3 mL nebulization of breath or wheezing #180 mL soln pantoprazole 40 mg tablet,delayed 40 mg PO DAILY #90 tabs 03/17/24 05/17/24 Rx release prednisone 5 mg tablet 5 mg PO DAILY #30 tabs 04/09/24 05/17/24 Rx potassium chloride 10 mEq 10 meq PO DAILY 04/21/24 05/17/24 History tablet,extended release magnesium oxide 200 mg PO BID 04/23/24 05/17/24 History amlodipine 5 mg tablet 10 mg (2 x 5 mg) PO DAILY #180 tabs 05/13/24 05/17/24 Rx Exam Const General: cooperative, in distress mild (pain) and ill appearing acutely Nutritional Appearance: overweight Orientation: alert, awake and oriented x3 HENMT Head: atraumatic Face and sinus: erythema (radiation burn with crusting) on the left and tenderness Mouth: oral mucosa abnormal Eyes General: appearance normal, both eyes and all related structures Neck Neck: normal visual inspection Resp Effort & Inspection: normal respiratory effort Cardio Rate: regular rate Rhythm: regular rhythm GI Inspection: normal to inspection Palpation: soft (round) Skin Lesions: lesion noted (left facial, radiation burn with crusting) Neuro General: patient alert, patient awake and patient oriented x3 Motor: muscle tone normal throughout Extrem General: normal to inspection and full ROM Results Labs 05/17/24 10:00 05/17/24 10:00 Labs: Laboratory Results - last 24 hr 05/17/24 05/17/24 05/17/24 10:00 11:00 11:25 WBC 6.66 RBC 4.27 Hgb 13.1 Hct 40.0 MCV 94 MCH 30.7 MCHC 32.8 RDW 14.9 H Plt Count 146 MPV 9.8 Immature Gran % 2.3 Neutrophils % 79.0 Lymphocytes % 8.9 Monocytes % 9.5 Eosinophils % 0.0 Basophils % 0.3 Nucleated RBC % 0.0 Absolute Neutrophils 5.27 Absolute Lymphocytes 0.59 L Absolute Monocytes 0.63 Absolute Eosinophils 0.00 Absolute Basophils 0.02 APTT 18.5 L Sodium 135 L Potassium 3.6 Chloride 96 L Carbon Dioxide 25.5 Anion Gap 13.5 H BUN 25 H Creatinine 1.0 Est GFR (CKD-EPI 2020) 58.75 Glucose 101 Calcium 10.5 H Magnesium 0.8 L Total Bilirubin 0.77 AST 17 ALT 27 Alkaline Phosphatase 52 Troponin I 23 23 Total Protein 7.3 Albumin 3.5 Urine Color Yellow Urine Clarity Sl Cloudy Urine pH 6.0 Ur Specific [place] 1.015 Urine Protein Negative Urine Ketones Negative Urine Blood Negative Urine Nitrite Negative Urine Bilirubin Negative Urine Urobilinogen 0.2 Ur Leukocyte Esterase Trace H Urine RBC 0-2 Urine WBC 10-20 H Ur Epithelial Cells Rare Urine Crystals Negative Urine Bacteria Many Urine Casts Negative Urine Mucus Negative Ur Culture Indicated? Yes Urine Glucose Negative COVID-19 Source Nasopharynx SARS-CoV-2 (PCR) Negative Influenza Type A (PCR) Negative Influenza Type B (PCR) Negative RSV (PCR) Negative 05/17/24 12:20 WBC RBC Hgb Hct MCV MCH MCHC RDW Plt Count MPV Immature Gran % Neutrophils % Lymphocytes % Monocytes % Eosinophils % Basophils % Nucleated RBC % Absolute Neutrophils Absolute Lymphocytes Absolute Monocytes Absolute Eosinophils Absolute Basophils APTT Sodium Potassium Chloride Carbon Dioxide Anion Gap BUN Creatinine Est GFR (CKD-EPI 2020) Glucose Calcium Magnesium Total Bilirubin AST ALT Alkaline Phosphatase Troponin I Cancelled Total Protein Albumin Urine Color Urine Clarity Urine pH Ur Specific [place] Urine Protein Urine Ketones Urine Blood Urine Nitrite Urine Bilirubin Urine Urobilinogen Ur Leukocyte Esterase Urine RBC Urine WBC Ur Epithelial Cells Urine Crystals Urine Bacteria Urine Casts Urine Mucus Ur Culture Indicated? Urine Glucose COVID-19 Source SARS-CoV-2 (PCR) Influenza Type A (PCR) Influenza Type B (PCR) RSV (PCR) Last Vital Signs Temp 37.0 C 05/17/24 11:53 Pulse 82 05/17/24 11:53 Resp 20 05/17/24 11:53 BP 129/58 L 05/17/24 11:53 Pulse Ox 99 05/17/24 11:53 Time Spent Time spent with Patient: 55-74 minutes Time was spent: preparing to see the patient(eg.review tests), obtaining and/or reviewing separately otained hiistory, ordering medications,tests, procedures, indepentently interpreting results and counseling the patient
--- NOTE | 2024-05-17 15:53 | W.PC.ACHO ---
Registration Status: Primary Language: Preferred Language: ED Information & Data Chief Complaint GenMedical 05/17/24 09:47 Triage Note Pt reports not being able to 05/17/24 09:22 sleep for 3 days, difficulty moving bowels, weak, SOB PICKARD, feeling like she is going to pass out for 2-3 days- cancer treatment but getting to the end of her course Medical / Surgical History (Last Reviewed 05/17/24 @ 09:59 by Brian Calderon MD) Urinary bladder incontinence (~04/2024) Buccal mass Primary hypertension Hx of adenomatous colonic polyps (~05/2019) History of pulmonary embolism Pulmonary embolism Diverticulosis Colon polyps Abnormal colonoscopy (11/11/15) Adenomatous colon polyp Benign paroxysmal vertigo (10/12/11) Midline cystocele (12/10/12) Obstructive sleep apnea (adult) (pediatric) (01/19/13) Obesity (12/10/12) Restless legs (01/19/13) Sensorineural hearing loss, bilateral (06/03/14) Tinnitus (06/03/14) Vertigo (06/03/14) Serrated polyp of colon (11/11/15) Hyperlipemia (Last Reviewed 05/17/24 @ 09:59 by Brian Calderon MD) Status post gastrostomy tube placement, follow-up exam (~03/26/24) History of temporal artery biopsy Hx of colonoscopy History of cardiac cath Hysterectomy, Laproscopic Bilateral salpingectomy with oophorectomy (~12/2006) Most Recent Vital Signs Temperature 36.1 C L 05/17/24 15:24 Temperature Source Tympanic 05/17/24 15:24 Pulse 78 05/17/24 15:24 Pulse Rhythm Regular 05/17/24 11:53 Pulse Strength Normal 05/17/24 11:53 Pulse 77 05/17/24 11:31 Respiratory Rate 20 05/17/24 15:24 Respiratory Effort Non-Labored 05/17/24 11:53 Respiratory Depth Normal 05/17/24 11:53 Respiratory Pattern Normal 05/17/24 11:27 Blood Pressure 130/55 L 05/17/24 15:24 Blood Pressure Mean 81 05/17/24 11:53 Blood Pressure Position Supine 05/17/24 11:53 Pulse Oximetry 94 05/17/24 15:24 Oxygen Delivery Method Room Air 09/15/24 15:24 Oxygen Flow Rate 0 05/17/24 15:24 Pain Level 9 05/17/24 15:24 Allergies clarithromycin Allergy (Severe, Verified 03/26/24 05:49) HIVES Penicillins Allergy (Severe, Verified 03/26/24 05:49) HIVES pt. reports swelling in mouth and face tetracycline Allergy (Severe, Verified 03/26/24 05:49) HIVES, HALLUCINATIONS eszopiclone (Eszopiclone) Allergy (Unknown, Verified 03/26/24 05:49) pt unsure of reaction telithromycin (Telithromycin) Allergy (Unknown, Verified 03/26/24 05:49) pt unsure raloxifene HCl (From Evista) Adverse Reaction (Intermediate, Verified 03/26/24 05:49) BODY ACHES sulfamethoxazole (From Bactrim) Adverse Reaction (Intermediate, Verified 03/26/24 05:49) HEADACHE,VOMITING trimethoprim (From Bactrim) Adverse Reaction (Intermediate, Verified 03/26/24 05:49) HEADACHE,VOMITING alendronate sodium Adverse Reaction (Mild, Verified 03/26/24 05:49) BODY ACHE codeine Adverse Reaction (Mild, Verified 03/26/24 05:49) GI UPSET risedronate sodium (From Actonel) Adverse Reaction (Mild, Verified 03/26/24 05:49) BODY ACHES Bisphosphonates Adverse Reaction (Unknown, Verified 03/26/24 05:49) achy joints hydrocodone (Hydrocodone) Adverse Reaction (Unknown, Verified 03/26/24 05:49) vomitting Macrolide Antibiotics Adverse Reaction (Unknown, Verified 03/26/24 05:49) vomitting and hallucinations morphine Adverse Reaction (Unknown, Verified 03/26/24 05:49) pt. felt like she was floating, states she thinks she got to Sulfa (Sulfonamide Antibiotics) Adverse Reaction (Verified 03/26/24 05:49) Other (See Comment) Precautions Isolation Standard precaution 05/17/24 09:26 IV IV Catheter Type [Left Diffusics Antecubital] IV Catheter Gauge [Left 20 Antecubital] Diet Orders Category Date Time Status Regular/Normal [DIET] Nutrition 05/17/24 Dinner Active Diagnostics 05/17/24 05/17/24 05/17/24 Range/Units 12:20 11:25 11:00 WBC (4.4-10.8) 10^3/uL RBC (3.93-5.22) 10^6/uL Hgb (11.2-15.7) g/dL Hct (36.0-46.0) % MCV (80-95) fL MCH (27.0-33.0) pg MCHC (32.0-36.0) % RDW (11.7-14.6) % Plt Count (130-400) 10^3/uL MPV (8.0-11.0) fL Immature Gran % % Neutrophils % % Lymphocytes % % Monocytes % % Eosinophils % % Basophils % % Nucleated RBC % (0.0-0.3) % Absolute Neutrophils (1.2-6.7) 10^3/uL Absolute Lymphocytes (1.2-3.4) 10^3/uL Absolute Monocytes (0.1-0.8) 10^3/uL Absolute Eosinophils (0.0-0.7) 10^3/uL Absolute Basophils (0.0-0.2) 10^3/uL APTT (23.6-32.8) sec Sodium (136-145) mmol/L Potassium (3.5-5.1) mmol/L Chloride (98-107) mmol/L Carbon Dioxide (21.0-32.0) mmol/L Anion Gap (3-11) mmol/L BUN (7-18) mg/dL Creatinine (0.55-1.02) mg/dL Est GFR (CKD-EPI 2020) (mL/min/1.73m2) Glucose (74-106) mg/dL Calcium (8.5-10.1) mg/dL Magnesium (1.8-2.4) mg/dL Total Bilirubin (0.2-1.0) mg/dL AST (15-37) U/L ALT (14-59) U/L Alkaline Phosphatase (46-116) U/L Troponin I Cancelled 23 (<or=51) ng/L Total Protein (6.4-8.2) g/dL Albumin (3.4-5.0) g/dL Urine Color Yellow (Yellow) Urine Clarity Sl Cloudy (Clear) Urine pH 6.0 (5-8) Ur Specific [place] 1.015 (1.005-1.025) Urine Protein Negative (Neg-Trace) mg/dL Urine Ketones Negative (Negative) mg/dL Urine Blood Negative (Negative) Urine Nitrite Negative (Negative) Urine Bilirubin Negative (Negative) Urine Urobilinogen 0.2 (Up to 0.2) mg/dL Ur Leukocyte Esterase Trace H (Negative) Urine RBC 0-2 (0-2) HPF Urine WBC 10-20 H (0-5) HPF Ur Epithelial Cells Rare (Negative) HPF Urine Crystals Negative (Negative) HPF Urine Bacteria Many (Negative) HPF Urine Casts Negative (Negative) LPF Urine Mucus Negative (Negative) Ur Culture Indicated? Yes Urine Glucose Negative (Negative) mg/dL COVID-19 Source SARS-CoV-2 (PCR) (Negative) Influenza Type A (PCR) (Negative) Influenza Type B (PCR) (Negative) RSV (PCR) (Negative) 05/17/24 Range/Units 10:00 WBC 6.66 (4.4-10.8) 10^3/uL RBC 4.27 (3.93-5.22) 10^6/uL Hgb 13.1 (11.2-15.7) g/dL Hct 40.0 (36.0-46.0) % MCV 94 (80-95) fL MCH 30.7 (27.0-33.0) pg MCHC 32.8 (32.0-36.0) % RDW 14.9 H (11.7-14.6) % Plt Count 146 (130-400) 10^3/uL MPV 9.8 (8.0-11.0) fL Immature Gran % 2.3 % Neutrophils % 79.0 % Lymphocytes % 8.9 % Monocytes % 9.5 % Eosinophils % 0.0 % Basophils % 0.3 % Nucleated RBC % 0.0 (0.0-0.3) % Absolute Neutrophils 5.27 (1.2-6.7) 10^3/uL Absolute Lymphocytes 0.59 L (1.2-3.4) 10^3/uL Absolute Monocytes 0.63 (0.1-0.8) 10^3/uL Absolute Eosinophils 0.00 (0.0-0.7) 10^3/uL Absolute Basophils 0.02 (0.0-0.2) 10^3/uL APTT 18.5 L (23.6-32.8) sec Sodium 135 L (136-145) mmol/L Potassium 3.6 (3.5-5.1) mmol/L Chloride 96 L (98-107) mmol/L Carbon Dioxide 25.5 (21.0-32.0) mmol/L Anion Gap 13.5 H (3-11) mmol/L BUN 25 H (7-18) mg/dL Creatinine 1.0 (0.55-1.02) mg/dL Est GFR (CKD-EPI 2020) 58.75 (mL/min/1.73m2) Glucose 101 (74-106) mg/dL Calcium 10.5 H (8.5-10.1) mg/dL Magnesium 0.8 L (1.8-2.4) mg/dL Total Bilirubin 0.77 (0.2-1.0) mg/dL AST 17 (15-37) U/L ALT 27 (14-59) U/L Alkaline Phosphatase 52 (46-116) U/L Troponin I 23 (<or=51) ng/L Total Protein 7.3 (6.4-8.2) g/dL Albumin 3.5 (3.4-5.0) g/dL Urine Color (Yellow) Urine Clarity (Clear) Urine pH (5-8) Ur Specific [place] (1.005-1.025) Urine Protein (Neg-Trace) mg/dL Urine Ketones (Negative) mg/dL Urine Blood (Negative) Urine Nitrite (Negative) Urine Bilirubin (Negative) Urine Urobilinogen (Up to 0.2) mg/dL Ur Leukocyte Esterase (Negative) Urine RBC (0-2) HPF Urine WBC (0-5) HPF Ur Epithelial Cells (Negative) HPF Urine Crystals (Negative) HPF Urine Bacteria (Negative) HPF Urine Casts (Negative) LPF Urine Mucus (Negative) Ur Culture Indicated? Urine Glucose (Negative) mg/dL COVID-19 Source Nasopharynx SARS-CoV-2 (PCR) Negative (Negative) Influenza Type A (PCR) Negative (Negative) Influenza Type B (PCR) Negative (Negative) RSV (PCR) Negative (Negative) 05/17/24 11:25 Urine Culture - Pending Urine - Reflex from Ua Intake and Output - 24 Hour Total 05/17/24 09:13 thru 05/17/24 15:49 Intake Total 250 Balance 250 Weight 83.2 kg Intake: IV 250 Falls Risk Assessment History of Falls No History 05/17/24 09:31 Contributing Factors Impairments,Incontinence, 05/17/24 09:31 Medications Ambulatory Aids Uses ambulatory device + 05/17/24 09:31 Tubes/Lines W/no contributing factors 05/17/24 09:31 Gait Evaluation W/any additional score 05/17/24 09:31 Cognition No cognitive impairment 05/17/24 09:31 Fall Total Score 69 05/17/24 09:31 Level of Risk High Risk 05/17/24 09:31 Problems (Last Reviewed 05/17/24 @ 09:59 by Brian Calderon MD) Discharge planning issues (Acute) DVT prophylaxis (Acute) Encephalopathy acute (Acute) Acute UTI (Acute) Acute alteration in mental status (Acute) Hypomagnesemia (Acute) Fecal impaction in rectum (Acute) Cancer of oral cavity (Acute) Anticoagulant long-term use (Acute) Polymyalgia rheumatica (Acute 10/12/11) v v v v v v v v v Sending and/or Receiving Nurses: Please use comment section below to note any information pertinent to the patient hand-off not included above. Information / Comments: A/O x4, LS clear, heart regular, Mg is 0.8 is being replenished, c/o constipation and rectal pain, IV ABX given for UTI, 1 mg Ativan given with mild effect, thick secretions 2/2 oral cancer which makes it hard for patient to swallow. Report received from: ALESSIO Frias
[2024-05-17] MEDS: Acetaminophen 325 MG TAB 650 MG PO ×2 (15:55→20:37)
[2024-05-17] MEDS: Milk of Magnesia 30 ML CUP PO (15:56)
[2024-05-17] MEDS: Normal Saline Flush 10 ML SYR IVP ×2 (17:32→21:02)
[2024-05-17] MEDS: hydrOXYzine HCL 25 MG TAB PO (20:36)
[2024-05-17] MEDS: Senna TAB 1 TAB PO (20:36)
[2024-05-17] MEDS: Docusate Sodium 100 MG CAP PO (20:37)
[2024-05-17] MEDS: Gabapentin 100 MG CAP PO (20:37)
[2024-05-17] MEDS: Magnesium Oxide 400 MG TAB 200 MG PO (20:37)
[2024-05-18] MEDS: Acetaminophen 325 MG TAB 650 MG PO ×4 (01:01→20:03)
[2024-05-18] MEDS: CIPROFLOXACIN 400 MG/200 ML BAG 200 MG IVPB ×2 (01:02→12:22)
[2024-05-18 07:00] LABS: Abs Immature Grans 0.09 10^3/uL (0.0-0.06); Absolute Basophil Count 0.03 10^3/uL (0.0-0.2); Absolute Lymphocyte Count 0.35 10^3/uL (1.2-3.4); Absolute Monocyte Count 0.58 10^3/uL (0.1-0.8); Absolute Neutrophil Count 4.59 10^3/uL (1.2-6.7); Basophils % 0.5 %; HCT 35.7 % (36.0-46.0); HGB 11.8 g/dL (11.2-15.7); Immature Grans % 1.6 %; Lymphocytes % 6.2 %; MCHC 33.1 % (32.0-36.0); MCV 94 fL (80-95); MPV 9.4 fL (8.0-11.0); Monocytes % 10.3 %; Neutrophils % 81.4 %; Platelet Count 124 10^3/uL (130-400); RBC 3.81 10^6/uL (3.93-5.22); RDW 15.2 % (11.7-14.6); WBC 5.64 10^3/uL (4.4-10.8)
[2024-05-18 07:17] LABS: ALT 24 U/L (14-59); AST 14 U/L (15-37); Albumin 2.9 g/dL (3.4-5.0); Alkaline Phosphatase 45 U/L (46-116); BUN 21 mg/dL (7-18); Bilirubin, Total 0.79 mg/dL (0.2-1.0); CREATININE 0.8 mg/dL (0.55-1.02); Chloride 97 mmol/L (98-107); Estimated GFR 76.79 (mL/min/1.73m2); Glucose 96 mg/dL (74-106); Magnesium 1.9 mg/dL (1.8-2.4); Potassium 3.6 mmol/L (3.5-5.1); Sodium 133 mmol/L (136-145); Total Protein 6.3 g/dL (6.4-8.2)
[2024-05-18 07:24] VITALS: BP 118/54; PULSE 74; RESP 16; TEMP 36.6; O2SAT 98
[2024-05-18] MEDS: Budesonide/Formoterol 160/4.5 6 GM 60 PUFF INH IH ×2 (08:12→20:53)
[2024-05-18] MEDS: predniSONE 5 MG TAB PO (08:27)
[2024-05-18] MEDS: Citalopram 20 MG TAB 40 MG PO (08:27)
[2024-05-18] MEDS: Polyethylene Glycol 3350 17 GM PACKET PO (08:27)
[2024-05-18] MEDS: Cholecalciferol (Vitamin D3) 1,000 UNIT TAB 2000 UNITS PO (08:28)
[2024-05-18] MEDS: Senna TAB 1 TAB PO ×2 (08:29→20:06)
[2024-05-18] MEDS: Atorvastatin 40 MG TAB PO (08:30)
[2024-05-18] MEDS: Pantoprazole 40 MG TABCR PO (08:30)
[2024-05-18] MEDS: Potassium Chloride 10 MEQ TABCR PO (08:30)
[2024-05-18] MEDS: Docusate Sodium 100 MG CAP PO ×2 (08:30→20:03)
[2024-05-18] MEDS: Cyanocobalamin 500 MCG TAB 1000 MCG PO (08:31)
[2024-05-18] MEDS: amLODIPine 5 MG TAB 10 MG PO (08:48)
[2024-05-18] MEDS: Magnesium Oxide 400 MG TAB 200 MG PO ×2 (08:48→20:03)
[2024-05-18] MEDS: Normal Saline Flush 10 ML SYR IVP (08:49)
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
--- NOTE | 2024-05-18 14:40 | PT.INIE ---
PT Notes Visit Reasons: ENCEPHALOPATHY, UTI Physical Therapy Inpatient Initial Evaluation Date: 05/18/2024 Referring Doctor: Kate Medley NP PT Orders: PT CONSULT: Eval/Treat. Precautions: Fall. Standard. Activity as tolerated. Patient Profile/Admitting Diagnosis: Tena is a 74-year-old female admitted to the ED on 05/17/2024 due to shortness of breath and worsening confusion. 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 PMHX: All Active Problems (Updated 05/17/24 @ 15:22 by MENDEZ AMIN) 97664 x 20 minutes for 1 unit Discharge planning issues (Acute) DVT prophylaxis (Acute) Encephalopathy acute (Acute) Acute UTI (Acute) Acute alteration in mental status (Acute) Hypomagnesemia (Acute) Fecal impaction in rectum (Acute) Cancer of oral cavity (Acute) [facility] [place] 04.29.24 note.HE Cancer related pain (Acute) 04/08/24 [facility] Hem/Onc note Dysphagia (Acute) 04/08/24 [facility] [place] VTE (venous thromboembolism) (Acute) 04/08/24 [facility] [place]c note Hypomagnesemia (Acute) 04/08/24 [facility] [place]Onc note Squamous cell carcinoma of buccal mucosa (Acute 01/14/24) invasivePrimary osteoarthritis of right hip (Acute) Pure hypercholesterolemia (Acute) Periodic limb movement disorder (Acute) Paresthesia (Acute) Referred otalgia of left ear (Acute) Primary osteoarthritis of left knee (Acute ~07/2023) RheumatologyGiant cell arteritis (Acute 2008) Recurrence of symptoms 10/2022Left facial numbness (Acute) Trigeminal neuralgia of left side of face (Acute) ILD (interstitial lung disease) (Acute) Facial numbness (Acute) chin, @ region resting on PFT equipmentT MJ inflammation (Acute) from clenching? positioning? during PFT (~05/22/23) Lip pain (Acute) inner lip pain, into left inner cheek (apthous ulcer? thrush? referred jam/TMJ pain?) Pain in lower jaw (Acute) Other pulmonary embolism without acute cor pulmonale (Acute Unknown) Massive PE, Apr 08, 2022 per pt report .. [facility] [place] 04/16/23.HE MEHUL treated with BiPAP (Acute) Bronchiectasis (Acute) Former smoker (Acute) Dyspnea on exertion (Acute) Pulmonary emphysema (Acute) Benign essential hypertension (Acute 04/10/13) Increased appetite (Acute) Fall (Acute) Anticoagulant long-term use (Acute) Xarelto.. Hx Eliquis, PE, 2020Diarrhea (Acute) Prediabetes (Acute) 10/2022: 5.9 .. 09/2021: 5.7.. Bronchitis (Acute) Hearing loss, bilateral (Acute) Fatigue (Acute) Macrocytosis (Acute) Hypokalemia (Acute) PAD (peripheral artery disease) (Chronic) focal rt common iliac artery stenosis per CARD notes, ID in 2020 Peripheral vascular disease (Chronic) Orthostasis (Acute) Polymyalgia rheumatica (Acute 10/12/11) Temporal arteritis (Acute) Depressive disorder, not elsewhere classified (Acute 10/12/11) Lumbago (Acute 12/10/12) Esophageal reflux (Acute 12/10/12) EGD 05/25/13 KD: mild antritis and distal esophagitis; int metaplasia, no dysplasia Allergic rhinitis, unspecified (Acute 12/10/12) Neoplasm of unspecified behavior of bone, soft tissue, and skin (Acute) Leukoplakia of oral cavity (Acute) Anxiety and depression (Chronic) DJD (degenerative joint disease) (Chronic) Osteoarthritis (Chronic) GERD (gastroesophageal reflux disease) (Chronic) Medical History Urinary bladder incontinence (~04/2024) 04/27/24 intermittent and U/A done at [facility] Hem/Onc Buccal mass Primary hypertension Hx of adenomatous colonic polyps (~05/2019) villous adenomaHistory of pulmonary embolism Pulmonary embolism 2019 .. Eliquis, then Xarelto.. Diverticulosis 05/12/[address] Mariela Arizmendi, [facility] Colon polyps Abnormal colonoscopy (11/11/15) 11/11/15 Dr Brizuela, sessile serrated adenoma, repeat 3 years. mg Adenomatous colon polyp 11/11/15 Dr Brizuela, sessile serrated adenoma, repeat 3 years. mg Benign paroxysmal vertigo (10/12/11) Midline cystocele (12/10/12) pt. unsure Obstructive sleep apnea (adult) (pediatric) (01/19/13) Stopped BIPAP, 2020. severe, Dr. Greer, on auto Bi-Level bipap Obesity (12/10/12) Restless legs (01/19/13) Dr. Greer Sensorineural hearing loss, bilateral (06/03/14) Tinnitus (06/03/14) Vertigo (06/03/14) Serrated polyp of colon (11/11/15) Hyperlipemia Surgical History Status post gastrostomy tube placement, follow-up exam (~03/26/24) History of temporal artery biopsy Hx of colonoscopy History of cardiac cath Hysterectomy, Laproscopic Bilateral salpingectomy with oophorectomy (~12/2006) Social History/Home Situation: Lives with in a private home with a ramp to enter. Independent with all aspects of ADLs prior to admission, uses single-point cane for mobility ADLs. Equipment Owned/DME: FWW, SPC Subjective: Denied shortness of breath. Feels that she is back to baseline cognition. Adds that her is currently at [facility] for a back surgery. Report of pain in the right hip at rest and with movement at 5/10 and review left buccal and mandibular pain from cancer. Has an ongoing radiation therapy for her cancer. Objective: General Observation: L mandibular and buccal area swollen and with impaired skin integrity due to ongoing SCC Mental Status: Alert and oriented as to person, place, time, and purpose. Able to pay attention, focus, and respond appropriately. Pain: 5/10 on the R hip 4-5/10 on the L buccal area Vital Signs: Closely monitored by nursing staff ROM: Right Upper Extremity: Shoulder Flexion WFL. Shoulder abduction WFL. Elbow flexion WFL. Wrist flexion WFL. Functional opening and closing of hand WFL. Left Upper Extremity: Shoulder Flexion WFL. Shoulder abduction WFL. Elbow flexion WFL. Wrist flexion WFL. Functional opening and closing of hand WFL. Right Lower Extremity: Hip flexion up to 100 degrees before onset of pain. Hip abduction WFL. Knee flexion WFL. Ankle dorsiflexion WFL. Ankle plantarflexion WFL. Left Lower Extremity: Hip flexion WFL. Hip abduction WFL. Knee flexion WFL. Ankle dorsiflexion WFL. Ankle plantarflexion WFL. Strength: Right Upper Extremity: Shoulder flexors 4/5. Shoulder abductors 4/5. Elbow flexors 5/5. Elbow extensors 5/5. [employer] strong. Left Upper Extremity: Shoulder flexors 4/5. Shoulder abductors 4/5. Elbow flexors 5/5. Elbow extensors 5/5. [employer] Super[employer] strong. Right Lower Extremity: Hip flexors 3-/5. Hip abductors 4-/5. Knee flexors 4/5. Knee extensors 4-/5. Ankle dorsiflexors 4-/5. Ankle plantarflexors 4-/5. Left Lower Extremity: Hip flexors 4/5. Hip abductors 4/5. Knee flexors 4/5. Knee extensors 4/5. Ankle dorsiflexors 4-/5. Ankle plantarflexors 4-/5. Bed Mobility/Transfers: Minimal cueing provided for use of B hands as needed for support, movement sequence, AD management, and posture to reduce fall risk and minimize pain report Supine to sit independent Sit to stand stand by assist with FWW Stand to sit stand by assist with FWW Bed to toilet seat stand by assist with FWW Bed to reclining chair stand by assist with FWW Gait: Facilitated safe and correct performance of level surface ambulation covering a distance of 75 feet using front wheeled walker with standby assist with a reciprocal heel toe gait pattern but with antalgic gait on the right and with decreased stance phase on the right due to discomfort. No loss of balance. No shortness of breath. Balance: Static Sitting: Normal Dynamic Sitting: Normal Static Standing: Fair Dynamic Standing: Fair Special Tests: Mobility Limitations Standardized Measure [facility] AM-PAC 6 clicks Basic Mobility Inpatient Short Form: Raw Score: 24 CMS Score: 0 show % deficit Informed Consent/Education: Patient was instructed in purpose of PT consult and plan of care. Agreeable to proceed with established PT POC to achieve personal goals. Assessment: Patient tolerated short distance ambulation using front wheeled walker with report of pain in the right. Patient was scheduled to have total hip replacement when her SCC was discovered which caused her right ASHLEY to be postponed. Has ongoing radiation therapy which brought about her symptoms that led to ED visit on 05/17/2024. Patient presents with clinical signs and symptoms consistent with current/admitting diagnoses that have resulted to mobility limitations, gait instability, generalized weakness, and overall ADL decline as demonstrated by the following impairment level findings: 1. Impaired standing balance 2. Impaired activity tolerance Impairments are contributing to the following functional limitations: 1. Increased completion time for mobility ADL performance 2. Increased risk for falls 3. Difficulty with managing steps alone safely Patient is [place] 50798 moderate complexity based on the following: History: 74-year-old female with past medical history as indicated above Examination: Demonstrable impairment in strength, balance, and mobility level with underlying impairments and functional limitations as exhibited above Presentation: evolving Decision Makin moderate complexity Goals: Goals X1 week 1. Supine-Sit independent 2. Sit-Supine independent 3. Sit-Stand independent 4. Stand-Sit independent with FWW 5. Bed-Chair independent with FWW 6. Chair-Bed independent with FWW 7. Independent gait on level surface with use of FWW for at least 300 feet without report of pain nor dyspnea 8. Independent with home exercise program 9. Good static and dynamic standing balance/tolerance Plan of Care/Treatment Plan: 1-2x/day, 7 days/week x 1 week. Plan of care has been reviewed with the TECHNICAL SPECIALIST [employer] providing the service under Physical Therapy direction. Initiate Physical Therapy intervention for pain management as needed, strengthening, bed mobility, transfers, gait, stairs, balance training, and use of assistive device. DISCHARGE RECOMMENDATIONS: [] Home with no services [] [X] Home with services Patient will benefit from home health PT services in order to progress mobility level using least restrictive assistive ambulatory device, assess home safety, identify additional equipment needs, and establish a functional maintenance program that will increase ability of patient to remain at home. [] Home with outpatient PT [] [] SNF for continued rehabilitation [] [] Events Director Care [] [] SNF versus LTC based on ability to participate and progress [] TREATMENT CODE/TIME: 28047 x 20 minutes for 1 unit (14:40?15:00). Thank you for the opportunity to participate in the care of this patient. Shandra Reed PT, DPT, CLT [facility] [place], [place]
[2024-05-18 15:12] VITALS: BP 121/58; PULSE 84; RESP 16; TEMP 37.2; O2SAT 95
[2024-05-18] MEDS: Lidocaine 4% Cream 5 GM TUBE TP (16:21)
[2024-05-18] MEDS: Rivaroxaban 10 MG TABLET PO (16:21)
--- NOTE | 2024-05-18 17:24 | NUR.NOTE ---
Nursing Note: Daily documentation reviewed and agreed with by this assembly instructions writer.
[2024-05-18 19:35] VITALS: BP 117/69; PULSE 67; RESP 17; TEMP 36.3; O2SAT 94
[2024-05-18] MEDS: Gabapentin 100 MG CAP PO (20:02)
[2024-05-18] MEDS: hydrOXYzine HCL 25 MG TAB PO (20:06)
[2024-05-18] MEDS: Nystatin POWDER 15 GM JAR TP (20:07)
[2024-05-19] MEDS: Acetaminophen 325 MG TAB 650 MG PO ×2 (01:09→08:13)
[2024-05-19] MEDS: CIPROFLOXACIN 400 MG/200 ML BAG 200 MG IVPB (01:10)
[2024-05-19] MEDS: Normal Saline Flush 10 ML SYR IVP ×2 (01:11→08:11)
[2024-05-19 07:26] VITALS: BP 107/55; PULSE 63; RESP 17; TEMP 36.2; O2SAT 95
[2024-05-19 07:27] LABS: Abs Immature Grans 0.08 10^3/uL (0.0-0.06); Absolute Basophil Count 0.02 10^3/uL (0.0-0.2); Absolute Lymphocyte Count 0.38 10^3/uL (1.2-3.4); Absolute Monocyte Count 0.48 10^3/uL (0.1-0.8); Basophils % 0.5 %; HCT 34.1 % (36.0-46.0); HGB 11.2 g/dL (11.2-15.7); Lymphocytes % 9.4 %; MCH 30.9 pg (27.0-33.0); MCHC 32.8 % (32.0-36.0); MCV 94 fL (80-95); MPV 9.9 fL (8.0-11.0); Monocytes % 11.8 %; Neutrophils % 76.3 %; Platelet Count 128 10^3/uL (130-400); RBC 3.63 10^6/uL (3.93-5.22); RDW-SD 50.5 fL; WBC 4.06 10^3/uL (4.4-10.8)
[2024-05-19 07:44] LABS: Anion Gap 7.5 mmol/L (3-11); BUN 14 mg/dL (7-18); CO2 28.5 mmol/L (21.0-32.0); CREATININE 0.8 mg/dL (0.55-1.02); Calcium 9.2 mg/dL (8.5-10.1); Chloride 99 mmol/L (98-107); Estimated GFR 76.79 (mL/min/1.73m2); Glucose 96 mg/dL (74-106); Magnesium 1.4 mg/dL (1.8-2.4); Potassium 3.5 mmol/L (3.5-5.1); Sodium 135 mmol/L (136-145)
[2024-05-19] MEDS: Budesonide/Formoterol 160/4.5 6 GM 60 PUFF INH IH (07:49)
[2024-05-19] MEDS: Polyethylene Glycol 3350 17 GM PACKET PO (08:11)
[2024-05-19] MEDS: Nystatin POWDER 15 GM JAR TP (08:11)
[2024-05-19] MEDS: Cyanocobalamin 500 MCG TAB 1000 MCG PO (08:12)
[2024-05-19] MEDS: predniSONE 5 MG TAB PO (08:12)
[2024-05-19] MEDS: Citalopram 20 MG TAB 40 MG PO (08:12)
[2024-05-19] MEDS: Atorvastatin 40 MG TAB PO (08:12)
[2024-05-19] MEDS: Cholecalciferol (Vitamin D3) 1,000 UNIT TAB 2000 UNITS PO (08:13)
[2024-05-19] MEDS: Rivaroxaban 10 MG TABLET PO (08:13)
[2024-05-19] MEDS: Pantoprazole 40 MG TABCR PO (08:14)
[2024-05-19] MEDS: Potassium Chloride 10 MEQ TABCR PO (08:14)
[2024-05-19] MEDS: Docusate Sodium 100 MG CAP PO (08:14)
[2024-05-19] MEDS: Senna TAB 1 TAB PO (08:14)
[2024-05-19] MEDS: Magnesium Oxide 400 MG TAB 200 MG PO (08:15)
--- NOTE | 2024-05-19 08:37 | PT.INTREAT ---
PT Notes Visit Reasons: ENCEPHALOPATHY, UTI Physical Therapy Inpatient Treatment Note Date: 05/19/2024 Precautions: Fall. Standard. Activity as tolerated. Subjective: Wanted to have her physical therapy done first before morning care. STICK FEEDER Roz agreeable with plan. Stated that pain level in hip only is up to 3/10 now that she has gotten her Lidocaine patch through Nurse Thad since yesterday. [place] much better today than yesterday. Feels confident about going home. Objective: General Observation: L mandibular and buccal areas swollen and with impaired skin integrity due to ongoing SCC Mental Status: Alert and oriented as to person, place, time, and purpose. Able to pay attention, focus, and respond appropriately. Pain: As above Vital Signs: Closely monitored by nursing staff Bed Mobility/Transfers: Minimal cueing provided for use of B hands as needed for support, movement sequence, AD management, and posture to reduce fall risk and minimize pain report Supine to sit independent Sit to stand stand by assist with FWW Stand to sit stand by assist with FWW Bed to toilet seat stand by assist with FWW Bed to reclining chair stand by assist with FWW Gait: Facilitated safe and correct performance of level surface ambulation covering a distance of 350 using front wheeled walker with standby assist with a reciprocal heel toe gait pattern but with antalgic gait on the right and with decreased stance phase on the right due to discomfort. No loss of balance. No shortness of breath. Balance: Static Sitting: Normal Dynamic Sitting: Normal Static Standing: Fair Dynamic Standing: Fair THERA EX: Standing bilateral heel raises x 10 Partial knee bends x 10 Standing hip abduction x 10 Assessment: Much improved mobility level using FWW. Agreeable with PT. DISCHARGE RECOMMENDATIONS: [] Home with no services [] [X] Home with services Patient will benefit from home health PT services in order to progress mobility level using least restrictive assistive ambulatory device, assess home safety, identify additional equipment needs, and establish a functional maintenance program that will increase ability of patient to remain at home. [] Home with outpatient PT [] [] SNF for continued rehabilitation [] [] Medicinal Plant Picker Care [] [] SNF versus LTC based on ability to participate and progress [] TREATMENT CODE/TIME: 53353 x 21 minutes for 1 unit (08:37?08:58).
[2024-05-19 09:25] VITALS: BP 137/71
[2024-05-19] MEDS: MAGNESIUM SULFATE 2 GM/50 ML BAG IVINF (09:37)
[2024-05-19] MEDS: amLODIPine 5 MG TAB 10 MG PO (09:37)
--- NOTE | 2024-05-19 10:30 | W.PM.DS.N ---
Date of service: 05/19/24 Time of Service: 10:30 DS: Diagnosis Discharge Diagnosis (1) Encephalopathy acute: Status: Acute (2) Acute UTI: Status: Acute (3) Hypomagnesemia: Status: Acute (4) Fecal impaction in rectum: Status: Acute (5) Cancer of oral cavity: Status: Acute (6) Anticoagulant long-term use: Status: Acute (7) Polymyalgia rheumatica: Status: Acute (8) DVT prophylaxis: Status: Acute (9) Discharge planning issues: Status: Acute Discharge Plan Disposition Patient Disposition: Home Condition: Improving Discharge Details Reason For Visit: ENCEPHALOPATHY, UTI Admit Date/Time: 05/17/24 15:21 Admit Provider: Fortino Tinajero Attending Provider: Fortino Tinajero Primary Care Provider: Anjali Moe Hospital Course Hospital Course: The patient is a 74-year-old female with a complex medical history that includes oral squamous cell carcinoma, a history of pulmonary embolism managed with rivaroxaban, obstructive sleep apnea treated with BiPAP, emphysema, hypertension, and polymyalgia rheumatica. She was admitted to the hospital following a presentation to the emergency department with symptoms of confusion and shortness of breath. Upon evaluation, the workup revealed a urinary tract infection, which was promptly treated with ciprofloxacin. A chest CT scan was performed and showed no evidence of pulmonary embolism or significant pulmonary abnormalities. However, laboratory results indicated a critically low magnesium level of 0.8, which was promptly addressed with intravenous magnesium supplementation. Throughout her hospital stay, the patient did not develop fever, chills, rashes, or any new symptoms such as abdominal pain, nausea, vomiting, or diarrhea. She did report constipation, which had been managed in the emergency department with disimpaction and an enema, leading to effective relief. She remained hemodynamically stable and showed no further complications during her admission. Her acute encephalopathy was assessed to be likely due to the infectious process from the UTI, a head CT revealed no acute intracranial findings or significant changes from previous imaging. A left mandibular abnormality was noted, which is consistent with her history of oral cancer. The plan for her care included continuing ciprofloxacin and following up on culture results. Magnesium levels were repleted with intravenous therapy, and aggressive bowel management was advised to prevent further fecal impaction. Pain management for her oral cavity cancer was coordinated with her oncology team, and her long-term anticoagulation therapy was maintained, as no acute pulmonary embolism was detected on imaging. Her polymyalgia rheumatica was managed with ongoing prednisone. Before discharge, the patient and her caregivers were educated on the importance of adhering to her medication regimen, recognizing signs of complications, and knowing when to seek further medical attention. Follow-up appointments with her primary care physician and specialists were arranged to ensure continued management of her chronic conditions and recovery from the acute issues addressed during her hospitalization. Patient was prescribed ciprofloxacin twice a day for five days and magnesium chloride 64 mg daily. Home Meds and New Rx's Prescriptions: New ciprofloxacin HCl 500 mg tablet 500 mg PO BID Qty: 10 0RF magnesium chloride 64 mg tablet,delayed release (DR/EC) 64 mg PO DAILY Qty: 30 0RF Continued Xarelto 10 mg tablet 10 mg PO DAILY Qty: 90 1RF citalopram 40 mg tablet 40 mg PO DAILY Qty: 90 3RF cholecalciferol (vitamin D3) 50 mcg (2,000 unit) capsule 50 mcg PO DAILY Qty: 90 3RF losartan 50 mg tablet 50 mg PO DAILY Patient Comments: [facility] Vascular note 04/18/23 Dr. Monreal.HE chlorhexidine gluconate [Paroex Oral Rinse] 0.12 % mouthwash 15 ml mucous membrane BID Qty: 300 0RF Rx Instructions: Trial mouth cleaning rinse x1 week; STOP if it stings hydroxyzine HCl 25 mg tablet 25 mg PO BID PRN (Reason: Worry, Anxiety, Nausea) Qty: 30 1RF Rx Instructions: Trial for anxiety albuterol sulfate 90 mcg/actuation HFA aerosol inhaler 1 puff INHALATION Q6H PRN PRN (Reason: shortness of breath or wheezing) Qty: 6.7 1RF Rx Instructions: as best dispensed per insurance budesonide 0.25 mg/2 mL suspension for nebulization 0.25 mg inhalation BID Qty: 60 6RF budesonide-formoterol [Symbicort] 160-4.5 mcg/actuation HFA aerosol inhaler 2 puff inhalation BID Qty: 10.2 6RF gabapentin 100 mg capsule 100 mg PO QHS Qty: 90 3RF acetaminophen [Tylenol] 325 MG tablet 650 mg PO Q6H PRN PRN atorvastatin 40 mg tablet 40 mg PO DAILY Qty: 90 3RF ipratropium-albuterol 0.5 mg-3 mg(2.5 mg base)/3 mL solution for nebulization 3 ml inhalation Q6H PRN (Reason: shortness of breath or wheezing) Qty: 180 1RF pantoprazole 40 mg tablet,delayed release (DR/EC) 40 mg PO DAILY Qty: 90 3RF prednisone 5 mg tablet 5 mg PO DAILY Qty: 30 0RF Rx Instructions: Continue 5mg, per RHEUM (interim Rx, ik) magnesium oxide 200 mg magnesium tablet 200 mg PO BID Rx Instructions: pt daughter states [facility] advised to take 200mg in the am and if she does not have diarrhea, then take 1 am and 1 pm. if she does have diarrhea, they told her to stop taking, and they would give her infusions instead. nc amlodipine 5 mg tablet 10 mg PO DAILY Qty: 180 3RF potassium chloride 10 mEq capsule, extended release 10 meq PO DAILY Patient Comments: TAKE ONE CAPSULE BY MOUTH EVERY DAY cyanocobalamin (vitamin B-12) [Vitamin B-12] 1,000 mcg tablet 1,000 mcg PO DAILY Patient Comments: TAKE ONE TABLET BY MOUTH EVERY DAY Discharge Instructions Instructions: Urinary tract infections in adults, Ciprofloxacin (Systemic), Magnesium Chloride Additional Instructions: You magnesium is low, take magnesium daily; have level checked next week (order has been placed). Take Cipro for the next 5 days to complete a 7 day course. Drink plenty of fluids. Stand Alone Forms: Nursing Discharge Form Referrals: Anjali Moe DO [Primary Care Provider] - (The office has your information and should be calling to set up a hospital follow up within 7-10 days ) Activity:: Activity as Tolerated Equipment/Supplies:: No Equipment Needed Diet:: As Tolerated Discharge Orders Discharge Orders: Discharge Order (Routine); Ordered 05/19/24 Ordered By: Anabella Barba Other Ambulatory Orders: Basic Metabolic Panel (Routine) Timeframe: 1 Week Facility: [facility] - Location: Laboratory Outpatient - [facility] Ordered By: Anabella Barba Magnesium (Routine) Timeframe: 1 Week Facility: [facility] - Location: Laboratory Outpatient - [facility] Ordered By: Anabella Barba Discharge Data Discharge Date/Time-TO BE ENTERED AT DEPARTURE: 05/19/24 12:00 DS: Summary Time Spent with Patient providing and/or coordinating discharge services: Greater than 30 minutes Status at Discharge Functional status at discharge: independent ambulation Overall status at discharge: patient is progressing back to baseline Mental Status: mental status grossly normal Speech and Movement: speech and movement normal Mood: congruent mood Affect: normal affect Quality:SDOH Health Related Social Needs: Health related social needs material hardship Exam Const General: cooperative Nutritional Appearance: overweight Orientation: alert, awake and oriented x3 HENMT Head: atraumatic Face and sinus: erythema (radiation burn with crusting) on the left and tenderness Mouth: oral mucosa abnormal Eyes General: appearance normal, both eyes and all related structures Neck Neck: normal visual inspection Resp Effort & Inspection: normal respiratory effort Cardio Rate: regular rate Rhythm: regular rhythm GI Inspection: normal to inspection Palpation: soft (round) Skin Lesions: lesion noted (left facial, radiation burn with crusting) Neuro General: patient alert, patient awake and patient oriented x3 Motor: muscle tone normal throughout Extrem General: normal to inspection and full ROM Psych Mental Status: mental status grossly normal Speech and Movement: speech and movement normal Mood: congruent mood Affect: normal affect DS: Data Vitals/I&O Vitals and I&O: Vital Signs Temperature 36.2 C L 05/19/24 07:26 Temperature Source Skin 05/19/24 07:26 Pulse 63 05/19/24 07:26 Pulse Rhythm Regular 05/17/24 17:08 Pulse Strength Normal 05/17/24 11:53 Pulse 77 05/17/24 11:31 Respiratory Rate 17 05/19/24 07:26 Respiratory Effort Normal 05/17/24 17:08 Respiratory Depth Normal 05/17/24 17:08 Respiratory Pattern Normal 05/17/24 17:08 Blood Pressure 137/71 05/19/24 09:25 Blood Pressure Mean 81 05/17/24 11:53 Blood Pressure Position Supine 05/17/24 11:53 Pulse Oximetry 95 05/19/24 07:26 Oxygen Delivery Method Room Air 05/19/24 07:26 Oxygen Flow Rate 0 05/19/24 07:26 Pain Level 0 05/19/24 08:13 Comment states she has been using 2 L NC at night 05/17/24 18:40 Intake & Output 05/18/24 05/18/24 05/19/24 11:59 23:59 11:59 Intake Total 200 / 400 200 / 400 Balance 200 / 400 200 / 400 Intake: IV 200 / 400 200 / 400 Other: Comment Voiding with bowel movements pT states she voided, she flushed before I could see. Stool Size Small Small Stool Characteristics Soft Liquid Formed Brown Voiding Methods Toilet Data Completed and Pending Labs on day of discharge: Labs from last 24 hours 05/19/24 06:19 WBC 4.06 L RBC 3.63 L Hgb 11.2 Hct 34.1 L MCV 94 MCH 30.9 MCHC 32.8 RDW 15.0 H Plt Count 128 L MPV 9.9 Immature Gran % 2.0 Neutrophils % 76.3 Lymphocytes % 9.4 Monocytes % 11.8 Eosinophils % 0.0 Basophils % 0.5 Nucleated RBC % 0.0 Absolute Neutrophils 3.10 Absolute Lymphocytes 0.38 L Absolute Monocytes 0.48 Absolute Eosinophils 0.00 Absolute Basophils 0.02 Sodium 135 L Potassium 3.5 Chloride 99 Carbon Dioxide 28.5 Anion Gap 7.5 BUN 14 Creatinine 0.8 Est GFR (CKD-EPI 2020) 76.79 Glucose 96 Calcium 9.2 Magnesium 1.4 L PFSH All Active Problems (Updated 05/19/24 @ 10:29 by Anabella Barba NP) Discharge planning issues (Acute) DVT prophylaxis (Acute) Encephalopathy acute (Acute) Acute UTI (Acute) Acute alteration in mental status (Acute) Hypomagnesemia (Acute) Fecal impaction in rectum (Acute) Cancer of oral cavity (Acute) [facility] code from 04.29.24 note.HE Cancer related pain (Acute) 04/08/24 [facility] Hem/Onc note Dysphagia (Acute) 04/08/24 [facility] Hem/Onc note VTE (venous thromboembolism) (Acute) 04/08/24 [facility] Hem/Onc note Hypomagnesemia (Acute) 04/08/24 [facility] Hem/Onc note 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 positioning? during PFT (~05/22/23) Lip pain (Acute) inner lip pain, into left inner cheek (apthous ulcer? thrush? referred jam/TMJ pain?) Pain in lower jaw (Acute) Other pulmonary embolism without acute cor pulmonale (Acute Unknown) Massive PE, Apr 08, 2022 per pt report .. [facility] note 04/16/23.HE MEHUL treated with BiPAP (Acute) Bronchiectasis (Acute) Former smoker (Acute) Dyspnea on exertion (Acute) Pulmonary emphysema (Acute) Benign essential hypertension (Acute 04/10/13) Increased appetite (Acute) Fall (Acute) Anticoagulant long-term use (Acute) Xarelto.. Hx Eliquis, PE, 2019 Diarrhea (Acute) Prediabetes (Acute) 10/2022: 5.9 .. 09/2021: 5.7.. Bronchitis (Acute) Hearing loss, bilateral (Acute) Fatigue (Acute) Macrocytosis (Acute) Hypokalemia (Acute) PAD (peripheral artery disease) (Chronic) focal rt common iliac artery stenosis per CARD notes, ID in 2019 Peripheral vascular disease (Chronic) Orthostasis (Acute) Polymyalgia rheumatica (Acute 10/12/11) Temporal arteritis (Acute) Depressive disorder, not elsewhere classified (Acute 10/12/11) Lumbago (Acute 12/10/12) Esophageal reflux (Acute 12/10/12) EGD 05/25/13 KD: mild antritis and distal esophagitis; int metaplasia, no dysplasia Allergic rhinitis, unspecified (Acute 12/10/12) Neoplasm of unspecified behavior of bone, soft tissue, and skin (Acute) Leukoplakia of oral cavity (Acute) Anxiety and depression (Chronic) DJD (degenerative joint disease) (Chronic) Osteoarthritis (Chronic) GERD (gastroesophageal reflux disease) (Chronic) Medical History Urinary bladder incontinence (~04/2024) 04/27/24 intermittent and U/A done at [facility] Hem/Onc Buccal mass Primary hypertension Hx of adenomatous colonic polyps (~05/2019) villous adenoma History of pulmonary embolism Pulmonary embolism 2019 .. Eliquis, then Xarelto.. Diverticulosis 05/12/[address] Mariela Arizmendi, [facility] Colon polyps Abnormal colonoscopy (11/11/15) 11/11/15 Dr Brizuela, sessile serrated adenoma, repeat 3 years. mg Adenomatous colon polyp 11/11/15 Dr Brizuela, sessile serrated adenoma, repeat 3 years. mg Benign paroxysmal vertigo (10/12/11) Midline cystocele (12/10/12) pt. unsure Obstructive sleep apnea (adult) (pediatric) (01/19/13) Stopped BIPAP, 2020. severe, Dr. Greer, on auto Bi-Level bipap Obesity (12/10/12) Restless legs (01/19/13) Dr. Greer Sensorineural hearing loss, bilateral (06/03/14) Tinnitus (06/03/14) Vertigo (06/03/14) Serrated polyp of colon (11/11/15) Hyperlipemia Surgical History Status post gastrostomy tube placement, follow-up exam (~03/26/24) History of temporal artery biopsy Hx of colonoscopy History of cardiac cath Hysterectomy, Laproscopic Bilateral salpingectomy with oophorectomy (~12/2006) Family History Sister Cancer Breast cancer Father Heart disease Mother Heart disease Brother Heart disease [place] Social History Smoking/Tobacco Use Status: Former Tobacco Use Quit Date: 09/02/99 Tobacco: How many years used: 20 Smoking risk assessment performed?: Yes Alcohol Intake: former Drug use: Never Substance use type: does not use Adopted: No Caregiver/Support person: No Foster care: No Housing: house Number of Children: 3 number of grandchildren: 4 Communication Needs: Hard of Hearing Education Level: high school current occupation: Retired Pets and animals: Yes Pets and animals: dog(s) Sexually active: No Do you think of yourself as: straight/heterosexual Current gender identity: female What is your relationship status?: How often do you talk on the phone with friends or family?: three or more times per week How often do you get together with friends or relatives?: once per week Do you belong to any clubs or organized social groups?: no Panel score (0-1 are the most socially isolated patients): 2 What type of physical activity do you participate in: none Dilia/Adventism: Worship Special dilia needs: No Seatbelt use: always Drive intox or ride w/intox special education bus driver: No Do you feel safe at home: Yes Do you feel safe in your relationship?: Yes Additional Social history: Lives with of 55 years in [place]. She has 3 kids who live close. 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 Time Spent with Patient Time Spent with Patient: 45-69 minutes Time was spent: preparing to see the patient(eg.review tests), ordering medications,tests, procedures, referring, communicating with other health emergency care attendant, indepentently interpreting results, counseling the patient and care coordination
--- NOTE | 2024-05-19 12:38 | PDOC.CMDIS ---
Date of service: 05/19/24 Time of Service: 10:55 LACE Index Scoring Tool Questions: Length of Stay (in days): 2 Was the patient admitted via the E.D.?: Yes Comorbidities: Any Tumor E.D. Visits: 2 Answers: Total Score: 9 Risk of Readmission: Low Risk Care Management Discharge Plan Reason for Hospitalization: UTI encephalopathy Discharge Plan: Shelbi was discharged home today with new prescriptions for 5d of oral antibiotics and daily magnesium supplement. She will follow up with her PCP and continue per the prescribed plan of care. Shelbi refused HH PT. She will transport home in a private vehicle with her daughter. Patient/Family Education Needs: Review of discharge instructions, activity, limitations and follow up plane. Discuss ask me 3 SDOH Health Related Social Needs: Health related social needs material hardship Health related social needs: material hardship(utilities)(Z59.87) Care Management Referrals: [facility]
== END 2024-05-19 12:00 | disposition home or self-care (01) | DRG 690 ==
LOC: ER 14:47 → MS 15:22
PROVIDERS: Nurse Practitioner Acute Care; Nurse Practitioner Family; Admitting Provider Internal Medicine; Emergency Provider Student in an Organized Health Care Education/Training Program; PCP Student in an Organized Health Care Education/Training Program; Visit Provider Internal Medicine
DX: N39.0 Urinary tract infection, site not specified (principal); G93.40 Encephalopathy, unspecified; E83.42 Hypomagnesemia; K56.41 Fecal impaction; C06.9 Malignant neoplasm of mouth, unspecified; Z79.01 Long term (current) use of anticoagulants; Z86.711 Personal history of pulmonary embolism; G47.33 Obstructive sleep apnea (adult) (pediatric); I10 Essential (primary) hypertension; G89.3 Neoplasm related pain (acute) (chronic); R13.10 Dysphagia, unspecified; M16.11 Unilateral primary osteoarthritis, right hip; G47.61 Periodic limb movement disorder; E78.00 Pure hypercholesterolemia, unspecified; M17.12 Unilateral primary osteoarthritis, left knee; M31.5 Giant cell arteritis with polymyalgia rheumatica; G50.0 Trigeminal neuralgia; J98.2 Interstitial emphysema; Z87.891 Personal history of nicotine dependence; I73.9 Peripheral vascular disease, unspecified; E87.6 Hypokalemia; D75.89 Other specified diseases of blood and blood-forming organs; K21.9 Gastro-esophageal reflux disease without esophagitis; F41.8 Other specified anxiety disorders; B96.20 Unspecified Escherichia coli [E. coli] as the cause of diseases classified elsewhere
CPT/HCPCS: 00123; 36415; 71275; 74177; 80048; 80053; 87077; 87637; 93005; 94640; 96365; 96366; 96367; 96375; 97162; 97530; 99285; 70450; 81003; 81015; 83735; 84484; 85025; 85730; 87086; 87186; 93010; 94664; 99222; 99232; 99239; J0744; J2060; J3475; J7512

== ENCOUNTER 2024-05-21 18:36 | Emergency (ER) | payer MEDICARE, SELFPAY ==
[2024-05-21 18:42] VITALS: BP 108/69; PULSE 86; RESP 12; TEMP 37.2; O2SAT 96
--- NOTE | 2024-05-21 18:45 | RT.EKG_ITS ---
APPROVED REPORT Exam: Resting ECG Reason for Exam: fall Patient Location: E HR:83 bpm ECG Measurements Heart Rate 83 AXIS NJ 199 P 73 QRSd 79 QRS 50 QT 349 T -74 QTc 410 Conclusion Sinus rhythm 83 no stemi
--- NOTE | 2024-05-21 19:00 | DI.CT_ITS ---
Exam(s) CT HEAD CERV SPINE FACIAL WO EXAM: CT HEAD CERV SPINE FACIAL WO CLINICAL HISTORY: fall. TECHNIQUE: Imaging Protocol: Axial computed tomography images with coronal and sagittal reformatted images were created and reviewed CT CT HEAD WO from 05/17/2024 FINDINGS: CT Head: Ventricles and Extra axial spaces: Normal in size and morphology for the patient's age. Hemorrhage: None. Cerebral parenchyma: No evidence of acute hemorrhage or acute infarct. Mild white matter changes of small vessel disease. Mild atrophy. Midline shift: None. Brainstem/Cerebellum: Old bilateral sellar velar lacunar infarcts. Calvarium: Normal. Visualized Paranasal sinuses/Mastoids: Clear. Soft Tissues: Unremarkable. CT Face: Facial Bones: No fracture is noted in facial bones. Sinuses and Mastoids: Unremarkable. Globes, extraocular muscles, optic nerves and retrobulbar fat: Normal. Upper aerodigestive tract: Normal. Mandible and bilateral temporomandibular joints: Moth-eaten appearance of the left mandibular ramus. Surrounding soft tissue mass. Mild subluxation of the temporomandibular joint. Soft tissues: Normal. CT Cervical Spine: Bones: No acute fracture or subluxation. 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 Degenerative changes at C5-6 a nd C6-7. Soft Tissues: Right internal jugular central venous catheter. No evidence of adenopathy or hematoma. Lung Apices: No pneumothorax. Pleural thickening. IMPRESSION: 1. No acute intracranial process. 2. No acute fracture or subluxation in the cervical spine. 3. No acute facial fracture. Mass surrounding the left mandibular ramus with significant bony destr uction. Subluxation at the temporomandibular joint. This may be chronic. Clinical correlation toby mmended. RADIATION DOSE DELIVERED: 1,644.83mGy.cm Total DLP DATA REPOSITORY: All CT scans at this facility are submitted to the National Radiology Data Registry (NRDR) Dose Index Registry (DIR) with the [employer] (ACR). RADIATION OPTIMIZATION: All CT scans at this facility use at least one of these dose optimization te chniques: automated exposure control; mA and/or kV adjustment per patient size (includes targeted exa ms where dose is matched to clinical indication); or iterative reconstruction.
--- NOTE | 2024-05-21 19:08 | DI.RAD_ITS ---
Exam(s) XR TOE RT GREAT EXAM: XR TOE RT GREAT CLINICAL HISTORY: toe injury. TECHNIQUE: 2D digital imaging was performed. COMPARISON: CR RIGHT FOOT COMPLETE from 12/15/2009 FINDINGS: BONES: Diverticular fracture of the distal aspect of the proximal phalanx of the great toe. There i s approximate half with of dorsal displacement and mild angulation. Mild separation at the articular surface. Mild impaction. No bony destructive lesion is seen. JOINTS: No dislocation present. SOFT TISSUE: Swelling around great toe. IMPRESSION: Intra-articular fracture of the proximal phalanx of the great toe. DATA REPOSITORY: RADIATION DOSE DELIVERED:
--- NOTE | 2024-05-21 19:08 | DI.CT_ITS ---
Exam(s) CT CHEST WO EXAM: CT CHEST WO CLINICAL HISTORY: fall, eval ribs TECHNIQUE: Imaging Protocol: Axial computed tomography images with coronal and sagittal reformatted images were created and reviewed CONTRAST MATERIAL: Noncontrast COMPARISON: CT CT CHEST PE ABD PELVIS W from 05/17/2024 FINDINGS: Pulmonary parenchyma: No consolidation. No dominant measurable mass. Mild emphysematous and fibrotic changes. Mild basilar scarring. Tracheobronchial tree: No bronchiectasis or mucous plugging. Mediastinum and Felipa: No dominant adenopathy or fluid collection. Small hiatal hernia. Pleura: No effusion. No pneumothorax. Heart: The heart is not dilated. Mild coronary artery calcifications are seen. Aorta: Thoracic aorta non-dilated. Mild atherosclerotic changes. Pulmonary arteries: No gross evidence of emboli. Upper abdomen: No acute findings. Bones: Degenerative changes in the spine. No rib fracture. No sternal fracture. Soft tissues: Port in right upper chest. Mild soft tissue contusion in the right parasternal region. IMPRESSION: Minimal anterior soft tissue contusion. No evidence of fracture, pneumothorax or other acute posttra umatic abnormality RADIATION DOSE DELIVERED: 288.04mGy.cm Total DLP 288.04mGy.cm Total DLP 288.04mGy.cm Total DLP 288.04mGy.cm Total DLP 288.04mGy.cm Total DLP DATA REPOSITORY: All CT scans at this facility are submitted to the National Radiology Data Registry (NRDR) Dose Index Registry (DIR) with the [employer] (ACR). RADIATION OPTIMIZATION: All CT scans at this facility use at least one of these dose optimization te chniques: automated exposure control; mA and/or kV adjustment per patient size (includes targeted exa ms where dose is matched to clinical indication); or iterative reconstruction.
--- NOTE | 2024-05-21 20:38 | DI.VRAD_ITS ---
PROCEDURE INFORMATION: Exam: CT Chest Without Contrast; Diagnostic Exam date and time: 05/21/2024 7:51 PM Age: 74 years old Clinical indication: Injury or trauma; Blunt trauma (contusions or hematomas); Injury details: Fall, eval ribs TECHNIQUE: Imaging protocol: Diagnostic computed tomography of the chest without contrast. 3D rendering (Not supervised by radiologist): MIP and/or 3D reconstructed images were created by the technologist. COMPARISON: CT CHEST PE ABD PELVIS W 05/17/2024 11:50 AM FINDINGS: Tubes, catheters and devices: Right chest wall port, satisfactory appearance. Lungs: Chronic moderate pulmonary emphysema, mild pulmonary fibrosis without airspace disease or traumatic pathology in the lungs. Pleural spaces: No pneumothorax. No pleural effusion. Heart: Cardiac size is upper limits of normal. Lymph nodes: No enlarged lymph nodes. Vasculature: No aortic aneurysm. Diaphragm: Tiny hiatal hernia. Bones/joints: Chronic bony changes with no acute fracture. Soft tissues: Minor subcutaneous contusion, right paramedian anterior chest wall. IMPRESSION: 1. Minor subcutaneous contusion, right paramedian anterior chest wall. 2. Incidental findings as described. Dictated and Authenticated by: Karla May MD. Ordering:[facility] Shiela Guerrero MD
--- NOTE | 2024-05-21 20:39 | DI.VRAD_ITS ---
PROCEDURE INFORMATION: Exam: XR Right Toe(s) Exam date and time: 05/21/2024 7:59 PM Age: 74 years old Clinical indication: Injury or trauma; Fall; Blunt trauma; Toes; Right; Injury details: Toe injury TECHNIQUE: Imaging protocol: Radiologic exam of the right toes. Views: Minimum 2 views. COMPARISON: CT ABD AORTA CTA W RUNOFF 04/10/2020 1:54 PM FINDINGS: Bones/joints: The bones are demineralized. Acute fracture, 1st proximal phalangeal neck with mild apex plantar angulation and mild impaction. Soft tissues: Soft tissue swelling distally. Soft tissue swelling surrounding the fracture site. IMPRESSION: Acute fracture, 1st proximal phalangeal neck with mild apex plantar angulation and mild impaction. Dictated and Authenticated by: Karla May MD. Ordering:CRISTY Guerrero MD
--- NOTE | 2024-05-21 20:51 | DI.VRAD_ITS ---
PROCEDURE INFORMATION: Exam: CT Head Without Contrast Exam date and time: 05/21/2024 7:45 PM Age: 74 years old Clinical indication: Injury or trauma; Blunt trauma (contusions or hematomas); Forehead and maxilla; Injury details: Fall, lt side TECHNIQUE: Imaging protocol: Computed tomography of the head without contrast. COMPARISON: CT HEAD WO 05/17/2024 11:33 AM FINDINGS: Brain: The brain shows no intra-axial or extra-axial hemorrhage. There is no mass or infarct. Mild involutional change. Mild white matter microangiopathic changes appear stable compared to previous exam. Cerebral ventricles: Normal. No ventriculomegaly or midline shift. Pituitary gland and sella: Normal. No enlargement. Paranasal sinuses: Visualized sinuses are unremarkable. No fluid levels or mucosal thickening. Mastoid air cells: Visualized mastoid air cells are well aerated. Bones: Unremarkable. No acute fracture. Soft tissues: Unremarkable. Vasculature: No significant atherosclerotic calcification. IMPRESSION: No acute intracranial trauma. PROCEDURE INFORMATION: Exam: CT Maxillofacial Without Contrast Exam date and time: 05/21/2024 7:45 PM Age: 74 years old Clinical indication: Injury or trauma; Blunt trauma (contusions or hematomas); Forehead and maxilla; Injury details: Fall, lt side TECHNIQUE: Imaging protocol: Computed tomography of the face without contrast. COMPARISON: CT HEAD WO 05/17/2024 11:33 AM FINDINGS: Orbital cavities: Orbits are normal. Globes are unremarkable. Paranasal sinuses: No significant mucosal thickening. No air-fluid levels. Ostiomeatal complex is patent bilaterally. Bones: No acute fracture. There are extensive lytic changes involving the left mandibular body and ramus. No similar findings seen in other bones of the maxillofacial region. Soft tissues: Soft tissue thickening around the left mandibular ramus and body.. IMPRESSION: No acute trauma. Soft tissue mass with lytic changes involving the left mandibular body and ramus concerning for neoplasm. Osteomyelitis could have a similar appearance. PROCEDURE INFORMATION: Exam: CT Cervical Spine Without Contrast Exam date and time: 05/21/2024 7:45 PM Age: 74 years old Clinical indication: Injury or trauma; Blunt trauma (contusions or hematomas); Forehead and maxilla; Injury details: Fall, lt side TECHNIQUE: Imaging protocol: Computed tomography of the cervical spine without contrast. COMPARISON: CT HEAD NECK W 01/17/2024 8:20 AM FINDINGS: Bones: No acute fracture. 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 There is disc space narrowing at C5-C6 and C6-C7. Facet joints show no fracture. There are moderate hypertrophic changes at multiple levels. Lungs: Pleural thickening in both pulmonary apices. Soft tissues: Right IJ CVL noted. IMPRESSION: No acute findings. Dictated and Authenticated by: Holger Mejia MD. Ordering:[facility] Shiela Guerrero MD
--- NOTE | 2024-05-21 22:47 | ED.GENADUL_ITS ---
Discharge Plan Disposition Patient Disposition: Home Discharge Details Clinical Impression: Fall, Rib contusion, Fracture of toe Primary Care Provider: Anjali Moe ED Provider: Aliyah Kuo Home Meds and New Rx's Prescriptions: No Action Xarelto 10 mg tablet 10 mg PO DAILY Qty: 90 1RF citalopram 40 mg tablet 40 mg PO DAILY Qty: 90 3RF cholecalciferol (vitamin D3) 50 mcg (2,000 unit) capsule 50 mcg PO DAILY Qty: 90 3RF losartan 50 mg tablet 50 mg PO DAILY Patient Comments: [facility] [place] 04/18/23 Dr. Monreal.HE chlorhexidine gluconate [Paroex Oral Rinse] 0.12 % mouthwash 15 ml mucous membrane BID Qty: 300 0RF Rx Instructions: Trial mouth cleaning rinse x1 week; STOP if it stings hydroxyzine HCl 25 mg tablet 25 mg PO BID PRN (Reason: Worry, Anxiety, Nausea) Qty: 30 1RF Rx Instructions: Trial for anxiety albuterol sulfate 90 mcg/actuation HFA aerosol inhaler 1 puff INHALATION Q6H PRN PRN (Reason: shortness of breath or wheezing) Qty: 6.7 1RF Rx Instructions: as best dispensed per insurance budesonide 0.25 mg/2 mL suspension for nebulization 0.25 mg inhalation BID Qty: 60 6RF budesonide-formoterol [Symbicort] 160-4.5 mcg/actuation HFA aerosol inhaler 2 puff inhalation BID Qty: 10.2 6RF gabapentin 100 mg capsule 100 mg PO QHS Qty: 90 3RF acetaminophen [Tylenol] 325 MG tablet 650 mg PO Q6H PRN PRN atorvastatin 40 mg tablet 40 mg PO DAILY Qty: 90 3RF ipratropium-albuterol 0.5 mg-3 mg(2.5 mg base)/3 mL solution for nebulization 3 ml inhalation Q6H PRN (Reason: shortness of breath or wheezing) Qty: 180 1RF pantoprazole 40 mg tablet,delayed release (DR/EC) 40 mg PO DAILY Qty: 90 3RF prednisone 5 mg tablet 5 mg PO DAILY Qty: 30 0RF Rx Instructions: Continue 5mg, per RHEUM (interim Rx, [place]) magnesium oxide 200 mg magnesium tablet 200 mg PO BID Rx Instructions: pt daughter states [facility] advised to take 200mg in the am and if she does not have diarrhea, then take 1 am and 1 pm. if she does have diarrhea, they told her to stop taking, and they would give her infusions instead. nc amlodipine 5 mg tablet 10 mg PO DAILY Qty: 180 3RF potassium chloride 10 mEq capsule, extended release 10 meq PO DAILY Patient Comments: TAKE ONE CAPSULE BY MOUTH EVERY DAY cyanocobalamin (vitamin B-12) [Vitamin B-12] 1,000 mcg tablet 1,000 mcg PO DAILY Patient Comments: TAKE ONE TABLET BY MOUTH EVERY DAY ciprofloxacin HCl 500 mg tablet 500 mg PO BID Qty: 10 0RF magnesium chloride 64 mg tablet,delayed release (DR/EC) 64 mg PO DAILY Qty: 30 0RF Discharge Instructions Instructions: Toe Injury, Bruised Rib Additional Instructions: CT imaging of head neck and face do not reveal any acute fractures or bleeding around your brain The CT scan of your chest does not show any rib fractures. You may likely still be sore from falling and having pain without fracture. Continue Tylenol as needed for pain You do have a fracture of your toe. You can wear the postop shoe provided to h elp with pain. You can also tape the toe to the next toe for comfort. HPI General Date/Time Provider Initiated Documentation: 05/21/24 19:08 . Limitations to Documentation: no limitations . Information obtained by: patient . 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 She reports that she fell yesterday when ambulating to the bathroom. She states that she tripped and lost her balance after striking her big toe. She states that she did hit her face, no loss of consciousness. Denies any headache vision change or vomiting today. She states that she also hit her ribs and reports some mild tenderness there. Denies any shortness of breath or difficulty breathing. She reports after hitting her toe that she has pain in her right great toe, associated with swelling as well. Tender with walking. Related Data Home Medications ?Medication ?Instructions ?Recorded ?Confirmed acetaminophen 325 mg tablet 650 mg PO Q6H PRN PRN 11/23/14 05/21/24 (Tylenol) losartan 50 mg tablet 50 mg PO DAILY 05/03/23 05/21/24 rivaroxaban 10 mg tablet (Xarelto) 10 mg PO DAILY #90 tabs 08/20/23 05/21/24 cholecalciferol (vitamin D3) 50 50 mcg PO DAILY #90 caps 09/03/23 05/21/24 mcg (2,000 unit) capsule citalopram 40 mg tablet 40 mg PO DAILY #90 tabs 09/03/23 05/21/24 atorvastatin 40 mg tablet 40 mg PO DAILY #90 tabs 11/14/23 05/21/24 chlorhexidine gluconate 0.12 % 15 ml mucous membrane BID #300 mL 01/09/2405/03 mouthwash (Paroex Oral Rinse) hydroxyzine HCl 25 mg tablet 25 mg PO BID PRN Worry, Anxiety, 01/09/24 05/21/24 Nausea #30 tabs albuterol sulfate 90 mcg/actuation 1 puff inhalation Q6H PRN PRN 01/14/24 05/21/24 aerosol inhaler shortness of breath or wheezing #6.7 grams budesonide 0.25 mg/2 mL suspension 0.25 mg (2 mL) inhalation BID #60 01/14/24 05/21/24 for nebulization mL budesonide-formoterol HFA 160 2 puff inhalation BID #10.2 grams 01/14/24 05/21/24 mcg-4.5 mcg/actuation aerosol inhaler (Symbicort) gabapentin 100 mg capsule 100 mg PO QHS #90 caps 01/14/24 05/21/24 ipratropium 0.5 mg-albuterol 3 mg 3 ml inhalation Q6H PRN shortness 01/14/24 05/21/24 (2.5 mg base)/3 mL nebulization of breath or wheezing #180 mL soln pantoprazole 40 mg tablet,delayed 40 mg PO DAILY #90 tabs 03/17/24 05/21/24 release prednisone 5 mg tablet 5 mg PO DAILY #30 tabs 04/09/24 05/21/24 magnesium oxide 200 mg PO BID 04/23/24 05/21/24 amlodipine 5 mg tablet 10 mg (2 x 5 mg) PO DAILY #180 tabs 05/13/24 05/21/24 ciprofloxacin HCl 500 mg tablet 500 mg PO BID #10 tabs 09/17/24 09/19/24 cyanocobalamin (vitamin B-12) 1,000 mcg PO DAILY 05/19/24 05/21/24 1,000 mcg tablet (Vitamin B-12) magnesium chloride 64 mg 64 mg PO DAILY #30 tabs 05/19/24 05/21/24 (magnesium chloride) tablet,delayed release potassium chloride 10 mEq 10 meq PO DAILY 05/19/24 05/21/24 capsule,extended release Previous Rx's ?Medication ?Instructions ?Recorded rivaroxaban 10 mg tablet (Xarelto) 10 mg PO DAILY #90 tabs 08/20/23 cholecalciferol (vitamin D3) 50 50 mcg PO DAILY #90 caps 09/03/23 mcg (2,000 unit) capsule citalopram 40 mg tablet 40 mg PO DAILY #90 tabs 09/03/23 atorvastatin 40 mg tablet 40 mg PO DAILY #90 tabs 11/14/23 chlorhexidine gluconate 0.12 % 15 ml mucous membrane BID #300 mL 01/09/24 mouthwash (Paroex Oral Rinse) hydroxyzine HCl 25 mg tablet 25 mg PO BID PRN Worry, Anxiety, 01/09/24 Nausea #30 tabs albuterol sulfate 90 mcg/actuation 1 puff inhalation Q6H PRN PRN 01/14/24 aerosol inhaler shortness of breath or wheezing #6.7 grams budesonide 0.25 mg/2 mL suspension 0.25 mg (2 mL) inhalation BID #60 01/14/24 for nebulization mL budesonide-formoterol HFA 160 2 puff inhalation BID #10.2 grams 01/14/24 mcg-4.5 mcg/actuation aerosol inhaler (Symbicort) gabapentin 100 mg capsule 100 mg PO QHS #90 caps 01/14/24 ipratropium 0.5 mg-albuterol 3 mg 3 ml inhalation Q6H PRN shortness 01/14/24 (2.5 mg base)/3 mL nebulization of breath or wheezing #180 mL soln pantoprazole 40 mg tablet,delayed 40 mg PO DAILY #90 tabs 03/17/24 release prednisone 5 mg tablet 5 mg PO DAILY #30 tabs 04/09/24 amlodipine 5 mg tablet 10 mg (2 x 5 mg) PO DAILY #180 tabs 05/13/24 ciprofloxacin HCl 500 mg tablet 500 mg PO BID #10 tabs 05/19/24 magnesium chloride 64 mg 64 mg PO DAILY #30 tabs 05/19/24 (magnesium chloride) tablet,delayed release Allergies Allergy/AdvReac Type Severity Reaction Status Date / Time clarithromycin Allergy Severe HIVES Verified 05/21/24 18:46 Penicillins Allergy Severe HIVES Verified 05/21/24 18:46 tetracycline Allergy Severe HIVES, Verified 05/21/24 18:46 HALLUCINATIONS eszopiclone (Eszopiclone) Allergy Unknown pt unsure Verified 05/21/24 18:46 of reaction telithromycin (Telithromycin) Allergy Unknown pt unsure Verified 05/21/24 18:46 raloxifene HCl (From Evista) AdvReac Intermediate BODY ACHES Verified 05/21/24 18:46 sulfamethoxazole (From AdvReac Intermediate HEADACHE,VO Verified 05/21/24 18:46 Bactrim) MITING trimethoprim (From Bactrim) AdvReac Intermediate HEADACHE,VO Verified 05/21/24 18:46 MITING alendronate sodium AdvReac Mild BODY ACHE Verified 05/21/24 18:46 codeine AdvReac Mild GI UPSET Verified 05/21/24 18:46 risedronate sodium (From AdvReac Mild BODY ACHES Verified 05/21/24 18:46 Actonel) Bisphosphonates AdvReac Unknown achy joints Verified 05/21/24 18:46 hydrocodone (Hydrocodone) AdvReac Unknown vomitting Verified 05/21/24 18:46 Macrolide Antibiotics AdvReac Unknown vomitting Verified 05/21/24 18:46 and hallucinations morphine AdvReac Unknown pt. felt Verified 05/21/24 18:46 like she was floating, states she thinks she got to Sulfa (Sulfonamide AdvReac Other (See Verified 05/21/24 18:46 Antibiotics) Comment) General Stated Complaint: Fall/Non TraumaCriteria TENA: 3 Exam Narrative Exam Narrative: Review of Systems: All systems reviewed & are unremarkable except as noted in HPI and below Well-developed, no acute distress Left eye with small subconjunctival hemorrhage around 2:00 There is some mild ecchymosis periorbitally on the left side of the face, there is left-sided facial swelling and large lesion over the mandible. Patient reports that the lesion and the swelling are from her malignancy and radiation and unchanged after the fall C-spine tenderness Edentulous RRR, no murmur clear bilaterally Unlabored respiratory effort Nondistended abdomen Right great toe with mild swelling, no deformity, tender to palpation no focal neurologic deficits Appropriate mood and affect Course Vital Signs Vital signs: Vital Signs Temperature 37.2 C 05/21/24 18:42 Pulse 86 05/21/24 18:42 Respiratory Rate 12 05/21/24 18:42 Blood Pressure 108/69 05/21/24 18:42 Pulse Oximetry 96 05/21/24 18:42 Temperature 37.2 C 05/21/24 18:42 Pulse 86 05/21/24 18:42 Respiratory Rate 12 05/21/24 18:42 Respiratory Effort Normal, Non-Labored 05/21/24 20:30 Blood Pressure 108/69 05/21/24 18:42 Pulse Oximetry 96 05/21/24 18:42 Pain Level 9 05/21/24 20:30 Medical Decision Making Emergent evaluation after a fall. Fall occurred almost 24 hours ago. The patient is on blood thinners. A triage EKG was obtained because of her reported history of fall. I did review and independently interpret this. Sinus 83 normal axis no acute ischemic change or dysrhythmia. She does have an injury noted to her toe. Concern for fracture or contusion. Her face does have some significant changes on the left side where she did hit her face, however the majority of the changes noted are secondary to the ongoing radiation therapy. Imaging was obtained of head face and C-spine. I did review the radiology report, there are obviously the malignancy changes, but no traumatic injuries noted. I obtained a CT scan of her chest to evaluate for rib fracture. There is some contusion noted, but no acute fracture. No pulmonary process either. Her x-ray of her toe does reveal a fracture. She was provided a hard soled postop shoe for comfort. Recommend continued Tylenol. Follow-up with her oncology team. Return precautions advised Quality:SDOH Health Related Social Needs: Health related social needs material hardship PFSH All Active Problems Fracture of toe (Acute) Rib contusion (Acute) Fall (Acute) Acute UTI (Acute) Cancer of oral cavity (Acute) [facility] [place] from 04.29.24 note.HE Cancer related pain (Acute) 04/08/24 [facility] Hem/Onc note Dysphagia (Acute) 04/08/24 [facility] Hem/Onc note VTE (venous thromboembolism) (Acute) 04/08/24 [facility] Hem/Onc note Hypomagnesemia (Acute) 04/08/24 [facility] Hem/Onc note 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 positioning? during PFT (~05/22/23) Lip pain (Acute) inner lip pain, into left inner cheek (apthous ulcer? thrush? referred jam/ TMJ pain?) Pain in lower jaw (Acute) Other pulmonary embolism without acute cor pulmonale (Acute Unknown) Massive PE, Apr 08, 2022 per pt report .. [facility] [place] 04/16/23.HE MEHUL treated with BiPAP (Acute) Bronchiectasis (Acute) Former smoker (Acute) Dyspnea on exertion (Acute) Pulmonary emphysema (Acute) Benign essential hypertension (Acute 04/10/13) Increased appetite (Acute) Fall (Acute) Diarrhea (Acute) Prediabetes (Acute) 10/2022: 5.9 .. 09/2021: 5.7.. Bronchitis (Acute) Hearing loss, bilateral (Acute) Fatigue (Acute) Macrocytosis (Acute) Hypokalemia (Acute) PAD (peripheral artery disease) (Chronic) focal rt common iliac artery stenosis per CARD notes, ID in 2019 Peripheral vascular disease (Chronic) Orthostasis (Acute) Temporal arteritis (Acute) Depressive disorder, not elsewhere classified (Acute 10/12/11) Lumbago (Acute 12/10/12) Esophageal reflux (Acute 12/10/12) EGD 05/25/13 KD: mild antritis and distal esophagitis; int metaplasia, no dysplasia Allergic rhinitis, unspecified (Acute 12/10/12) Neoplasm of unspecified behavior of bone, soft tissue, and skin (Acute) Leukoplakia of oral cavity (Acute) Anxiety and depression (Chronic) DJD (degenerative joint disease) (Chronic) Osteoarthritis (Chronic) GERD (gastroesophageal reflux disease) (Chronic) Medical History Anticoagulant long-term use Xarelto.. Hx Eliquis, PE, 2020 Polymyalgia rheumatica (10/12/11) Urinary bladder incontinence (~04/2024) 04/27/24 intermittent and U/A done at [facility] Hem/Onc Buccal mass Primary hypertension Hx of adenomatous colonic polyps (~05/2019) villous adenoma History of pulmonary embolism Pulmonary embolism 2019 .. Eliquis, then Xarelto.. Diverticulosis 05/12/[address] Mariela Arizmendi, [facility] Colon polyps Abnormal colonoscopy (11/11/15) 11/11/15 Dr Brizuela, sessile serrated adenoma, repeat 3 years. mg Adenomatous colon polyp 11/11/15 Dr Brizuela, sessile serrated adenoma, repeat 3 years. mg Benign paroxysmal vertigo (10/12/11) Midline cystocele (12/10/12) pt. unsure Obstructive sleep apnea (adult) (pediatric) (01/19/13) Stopped BIPAP, 2019. severe, Dr. Greer, on auto Bi-Level bipap Obesity (12/10/12) Restless legs (01/19/13) Dr. Greer Sensorineural hearing loss, bilateral (06/03/14) Tinnitus (06/03/14) Vertigo (06/03/14) Serrated polyp of colon (11/11/15) Hyperlipemia Surgical History Status post gastrostomy tube placement, follow-up exam (~03/26/24) History of temporal artery biopsy Hx of colonoscopy History of cardiac cath Hysterectomy, Laproscopic Bilateral salpingectomy with oophorectomy (~12/2006) Family History Sister Cancer Breast cancer Father Heart disease Mother Heart disease Brother Heart disease ID Social History Smoking/Tobacco Use Status: Former Tobacco Use Quit Date: 09/02/99 Tobacco: How many years used: 20 Smoking risk assessment performed?: Yes Alcohol Intake: former Drug use: Never Substance use type: does not use Adopted: No Caregiver/Support person: No Foster care: No Housing: house Number of Children: 3 number of grandchildren: 4 Communication Needs: Hard of Hearing Education Level: high school current occupation: Retired Pets and animals: Yes Pets and animals: dog(s) Sexually active: No Do you think of yourself as: straight/heterosexual Current gender identity: female What is your relationship status?: How often do you talk on the phone with friends or family?: three or more times per week How often do you get together with friends or relatives?: once per week Do you belong to any clubs or organized social groups?: no Panel score (0-1 are the most socially isolated patients): 2 What type of physical activity do you participate in: none Dilia/Sikh: Church Special dilia needs: No Seatbelt use: always Drive intox or ride w/intox 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 She has 3 kids who live close. 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
--- NOTE | 2024-05-23 07:27 | NUR.NOTE ---
Accessed Pt chart to obtain the diagnosis and ordering provider for the [facility] paperwork
== END 2024-05-21 21:16 | disposition home or self-care (01) ==
PROVIDERS: Emergency Provider Emergency Medicine; PCP Student in an Organized Health Care Education/Training Program
DX: S20.211A Contusion of right front wall of thorax, initial encounter (principal); S92.411A Displaced fracture of proximal phalanx of right great toe, initial encounter for closed fracture; I10 Essential (primary) hypertension; E78.5 Hyperlipidemia, unspecified; W18.39XA Other fall on same level, initial encounter; Y93.89 Activity, other specified; Y92.018 Other place in single-family (private) house as the place of occurrence of the external cause; Z86.711 Personal history of pulmonary embolism; Z96.82 Presence of neurostimulator; Z79.01 Long term (current) use of anticoagulants; Z87.891 Personal history of nicotine dependence
CPT/HCPCS: 71250; 93005; 99285; 70450; 70486; 72125; 73660; 93010; 99284

== ENCOUNTER 2024-06-01 12:45 | Outpatient (RCR) | payer MEDICARE, SELFPAY ==
[2024-05-05 10:18] LABS: Abs Immature Grans 0.07 10^3/uL (0.0-0.06); Absolute Basophil Count 0.04 10^3/uL (0.0-0.2); Absolute Eosinophil Count 0.22 10^3/uL (0.0-0.7); Absolute Lymphocyte Count 0.63 10^3/uL (1.2-3.4); Absolute Monocyte Count 0.79 10^3/uL (0.1-0.8); Absolute Neutrophil Count 5.33 10^3/uL (1.2-6.7); Basophils % 0.6 %; Eosinophils % 3.1 %; HCT 37.6 % (36.0-46.0); HGB 12.2 g/dL (11.2-15.7); Lymphocytes % 8.9 %; MCH 30.7 pg (27.0-33.0); MCHC 32.4 % (32.0-36.0); MCV 95 fL (80-95); MPV 9.8 fL (8.0-11.0); Monocytes % 11.2 %; Neutrophils % 75.2 %; Platelet Count 191 10^3/uL (130-400); RBC 3.98 10^6/uL (3.93-5.22); RDW 14.7 % (11.7-14.6); RDW-SD 49.7 fL; WBC 7.08 10^3/uL (4.4-10.8)
[2024-05-05 10:42] LABS: ALT 25 U/L (14-59); AST 14 U/L (15-37); Albumin 3.1 g/dL (3.4-5.0); Alkaline Phosphatase 44 U/L (46-116); Anion Gap 10.4 mmol/L (3-11); BUN 20 mg/dL (7-18); Bilirubin, Total 0.49 mg/dL (0.2-1.0); CO2 24.6 mmol/L (21.0-32.0); CREATININE 0.8 mg/dL (0.55-1.02); Calcium 9.3 mg/dL (8.5-10.1); Chloride 105 mmol/L (98-107); Estimated GFR 76.79 (mL/min/1.73m2); Glucose 97 mg/dL (74-106); Magnesium 1.4 mg/dL (1.8-2.4); Potassium 3.8 mmol/L (3.5-5.1); Sodium 140 mmol/L (136-145); Total Protein 6.8 g/dL (6.4-8.2)
[2024-05-05 10:47] LABS: Bilirubin Negative (Negative); Blood Negative (Negative); Clarity Clear (Clear); Glucose Negative (Negative); Ketones Negative (Negative); Leukocyte Esterase Negative (Negative); Nitrite Positive (Negative); Specific Gravity >= 1.030 (1.005-1.025); Urobilinogen 0.2 mg/dL (Up to 0.2); pH 5.5 (5-8)
[2024-05-05 11:16] LABS: Bacteria Moderate HPF (Negative); Casts Negative LPF (Negative); Crystals Negative HPF (Negative); Epithelial Cells Rare HPF (Negative); Mucus Negative (Negative); RBC Negative HPF (0-2); WBC 0-2 HPF (0-5)
[2024-05-05 11:17] LABS: C & S Indicated? No
[2024-05-11] MEDS: Normal Saline Flush 10 ML SYR IVP (09:45)
[2024-05-11 09:51] LABS: Abs Immature Grans 0.13 10^3/uL (0.0-0.06); Absolute Basophil Count 0.03 10^3/uL (0.0-0.2); Absolute Lymphocyte Count 0.55 10^3/uL (1.2-3.4); Absolute Monocyte Count 0.66 10^3/uL (0.1-0.8); Absolute Neutrophil Count 5.54 10^3/uL (1.2-6.7); Basophils % 0.4 %; HCT 38.3 % (36.0-46.0); HGB 12.5 g/dL (11.2-15.7); Immature Grans % 1.9 %; MCH 31.2 pg (27.0-33.0); MCHC 32.6 % (32.0-36.0); MCV 96 fL (80-95); MPV 9.2 fL (8.0-11.0); Monocytes % 9.6 %; Neutrophils % 80.1 %; Platelet Count 183 10^3/uL (130-400); RBC 4.01 10^6/uL (3.93-5.22); RDW 14.7 % (11.7-14.6); RDW-SD 50.3 fL; WBC 6.91 10^3/uL (4.4-10.8)
[2024-05-11 10:05] LABS: ALT 28 U/L (14-59); AST 12 U/L (15-37); Albumin 3.2 g/dL (3.4-5.0); Alkaline Phosphatase 43 U/L (46-116); Anion Gap 9.8 mmol/L (3-11); BUN 26 mg/dL (7-18); Bilirubin, Total 0.53 mg/dL (0.2-1.0); CO2 26.2 mmol/L (21.0-32.0); CREATININE 0.9 mg/dL (0.55-1.02); Calcium 9.3 mg/dL (8.5-10.1); Chloride 100 mmol/L (98-107); Estimated GFR 66.67 (mL/min/1.73m2); Glucose 134 mg/dL (74-106); Potassium 3.9 mmol/L (3.5-5.1); Sodium 136 mmol/L (136-145); Total Protein 6.8 g/dL (6.4-8.2)
[2024-05-25] MEDS: Normal Saline Flush 10 ML SYR IVP (08:33)
[2024-05-25 08:46] LABS: Abs Immature Grans 0.03 10^3/uL (0.0-0.06); Absolute Basophil Count 0.01 10^3/uL (0.0-0.2); Absolute Lymphocyte Count 0.35 10^3/uL (1.2-3.4); Absolute Monocyte Count 0.33 10^3/uL (0.1-0.8); Basophils % 0.3 %; HCT 32.6 % (36.0-46.0); HGB 10.9 g/dL (11.2-15.7); Immature Grans % 0.9 %; Lymphocytes % 10.5 %; MCH 31.2 pg (27.0-33.0); MCHC 33.4 % (32.0-36.0); MCV 93 fL (80-95); MPV 9.1 fL (8.0-11.0); Monocytes % 9.9 %; Neutrophils % 78.4 %; Platelet Count 156 10^3/uL (130-400); RBC 3.49 10^6/uL (3.93-5.22); RDW 16.2 % (11.7-14.6); RDW-SD 52.2 fL; WBC 3.32 10^3/uL (4.4-10.8)
[2024-05-25 08:52] LABS: Bilirubin Small (Negative); Blood Negative (Negative); Clarity Clear (Clear); Glucose 100 mg/dL (Negative); Ketones 15 mg/dL (Negative); Leukocyte Esterase Negative (Negative); Nitrite Negative (Negative); Specific Gravity 1.025 (1.005-1.025); pH 5.5 (5-8)
[2024-05-25 09:00] LABS: ALT 25 U/L (14-59); AST 17 U/L (15-37); Albumin 3.1 g/dL (3.4-5.0); Alkaline Phosphatase 47 U/L (46-116); Anion Gap 12.3 mmol/L (3-11); BUN 26 mg/dL (7-18); Bilirubin, Total 0.47 mg/dL (0.2-1.0); CO2 24.7 mmol/L (21.0-32.0); CREATININE 0.9 mg/dL (0.55-1.02); Chloride 100 mmol/L (98-107); Estimated GFR 66.67 (mL/min/1.73m2); Glucose 108 mg/dL (74-106); Magnesium 1.3 mg/dL (1.8-2.4); Potassium 3.4 mmol/L (3.5-5.1); Sodium 137 mmol/L (136-145); Total Protein 6.9 g/dL (6.4-8.2)
[2024-06-01] MEDS: Normal Saline Flush 10 ML SYR IVP (12:45)
[2024-06-01 13:17] LABS: HGB 10.6 g/dL (11.2-15.7); MCH 31.6 pg (27.0-33.0); MCHC 33.1 % (32.0-36.0); MCV 96 fL (80-95); MPV 9.5 fL (8.0-11.0); Platelet Count 233 10^3/uL (130-400); RBC 3.35 10^6/uL (3.93-5.22); RDW 17.5 % (11.7-14.6); RDW-SD 59.6 fL; WBC 2.97 10^3/uL (4.4-10.8)
[2024-06-01 13:18] LABS: Abs Immature Grans 0.08 10^3/uL (0.0-0.06); Absolute Basophil Count 0.01 10^3/uL (0.0-0.2); Absolute Lymphocyte Count 0.45 10^3/uL (1.2-3.4); Absolute Neutrophil Count 1.83 10^3/uL (1.2-6.7); Basophils % 0.3 %; Immature Grans % 2.7 %; Lymphocytes % 15.2 %; Monocytes % 20.2 %; Neutrophils % 61.6 %
[2024-06-01 13:36] LABS: ALT 23 U/L (14-59); AST 17 U/L (15-37); Albumin 3.1 g/dL (3.4-5.0); Alkaline Phosphatase 83 U/L (46-116); Anion Gap 8.4 mmol/L (3-11); BUN 31 mg/dL (7-18); Bilirubin, Total 0.46 mg/dL (0.2-1.0); CO2 27.6 mmol/L (21.0-32.0); CREATININE 0.8 mg/dL (0.55-1.02); Calcium 9.2 mg/dL (8.5-10.1); Chloride 98 mmol/L (98-107); Estimated GFR 76.79 (mL/min/1.73m2); Glucose 100 mg/dL (74-106); Magnesium 1.4 mg/dL (1.8-2.4); Potassium 3.9 mmol/L (3.5-5.1); Sodium 134 mmol/L (136-145); Total Protein 6.8 g/dL (6.4-8.2)
== END 2024-06-01 23:59 | disposition home or self-care (01) ==
LOC: INF 12:45
PROVIDERS: PCP Student in an Organized Health Care Education/Training Program; Visit Provider Nurse Practitioner
DX: C06.9 Malignant neoplasm of mouth, unspecified (principal)
CPT/HCPCS: 36591; 80053; 96523; 81003; 81015; 83735; 85025

== ENCOUNTER 2024-06-15 02:13 | Outpatient (RCR) | payer MEDICARE, SELFPAY ==
[2024-06-08] MEDS: Normal Saline Flush 10 ML SYR IVP (09:12)
[2024-06-08 09:19] LABS: Abs Immature Grans 0.17 10^3/uL (0.0-0.06); Absolute Basophil Count 0.04 10^3/uL (0.0-0.2); Absolute Lymphocyte Count 0.57 10^3/uL (1.2-3.4); Absolute Monocyte Count 0.95 10^3/uL (0.1-0.8); Absolute Neutrophil Count 2.91 10^3/uL (1.2-6.7); Basophils % 0.9 %; HCT 34.4 % (36.0-46.0); Immature Grans % 3.7 %; Lymphocytes % 12.3 %; MCH 31.3 pg (27.0-33.0); MCV 98 fL (80-95); MPV 9.5 fL (8.0-11.0); Monocytes % 20.5 %; Neutrophils % 62.6 %; Platelet Count 295 10^3/uL (130-400); RBC 3.51 10^6/uL (3.93-5.22); RDW 17.6 % (11.7-14.6); RDW-SD 63.1 fL; WBC 4.64 10^3/uL (4.4-10.8)
[2024-06-08 09:38] LABS: ALT 23 U/L (14-59); AST 16 U/L (15-37); Albumin 3.1 g/dL (3.4-5.0); Alkaline Phosphatase 104 U/L (46-116); Anion Gap 9.5 mmol/L (3-11); BUN 27 mg/dL (7-18); Bilirubin, Total 0.37 mg/dL (0.2-1.0); CO2 24.5 mmol/L (21.0-32.0); CREATININE 0.8 mg/dL (0.55-1.02); Calcium 8.9 mg/dL (8.5-10.1); Chloride 105 mmol/L (98-107); Estimated GFR 76.79 (mL/min/1.73m2); Glucose 92 mg/dL (74-106); Magnesium 1.5 mg/dL (1.8-2.4); Potassium 3.6 mmol/L (3.5-5.1); Sodium 139 mmol/L (136-145); Total Protein 6.8 g/dL (6.4-8.2)
[2024-06-15] MEDS: Normal Saline Flush 10 ML SYR IVP (08:38)
[2024-06-15 08:44] LABS: Abs Immature Grans 0.24 10^3/uL (0.0-0.06); Absolute Basophil Count 0.06 10^3/uL (0.0-0.2); Absolute Lymphocyte Count 0.63 10^3/uL (1.2-3.4); Absolute Monocyte Count 1.45 10^3/uL (0.1-0.8); Absolute Neutrophil Count 3.26 10^3/uL (1.2-6.7); Basophils % 1.1 %; HCT 36.7 % (36.0-46.0); Immature Grans % 4.3 %; Lymphocytes % 11.2 %; MCH 31.8 pg (27.0-33.0); MCHC 32.7 % (32.0-36.0); MCV 97 fL (80-95); MPV 10.2 fL (8.0-11.0); Monocytes % 25.7 %; Neutrophils % 57.7 %; Platelet Count 277 10^3/uL (130-400); RBC 3.77 10^6/uL (3.93-5.22); RDW 17.2 % (11.7-14.6); RDW-SD 62.2 fL; WBC 5.64 10^3/uL (4.4-10.8)
[2024-06-15 08:59] LABS: AST 21 U/L (15-37); Albumin 3.4 g/dL (3.4-5.0); Alkaline Phosphatase 86 U/L (46-116); Anion Gap 10.7 mmol/L (3-11); BUN 30 mg/dL (7-18); Bilirubin, Total 0.48 mg/dL (0.2-1.0); CO2 26.3 mmol/L (21.0-32.0); CREATININE 0.8 mg/dL (0.55-1.02); Calcium 9.5 mg/dL (8.5-10.1); Chloride 102 mmol/L (98-107); Estimated GFR 76.79 (mL/min/1.73m2); Glucose 97 mg/dL (74-106); Sodium 139 mmol/L (136-145)
[2024-06-15 09:00] LABS: ALT 31 U/L (14-59); Magnesium 1.5 mg/dL (1.8-2.4)
== END 2024-07-02 23:59 | disposition home or self-care (01) ==
LOC: INF 02:13
PROVIDERS: PCP Student in an Organized Health Care Education/Training Program; Visit Provider Nurse Practitioner
DX: C06.9 Malignant neoplasm of mouth, unspecified (principal); Z45.2 Encounter for adjustment and management of vascular access device
CPT/HCPCS: 36591; 80053; 83735; 85025

== ENCOUNTER 2024-08-06 02:12 | Outpatient (CLI) | payer MEDICARE, SELFPAY ==
--- NOTE | 2024-08-06 08:45 | DI.US_ITS ---
Exam(s) US CAROTID EXAM: US CAROTID CLINICAL HISTORY: eval stenosis, plaque,dizziness, syncope,r42. TECHNIQUE: Ultrasound carotids performed using grayscale, color-flow, and spectral Doppler imaging. COMPARISON: No exams were available for comparison FINDINGS: RIGHT CAROTID ARTERY: Plaque: [id number] calcific plaque is seen in the carotid bulb and the proximal ECA and interna l carotid artery. Velocity elevation: None. LEFT CAROTID ARTERY: Plaque: Moderate calcific plaque is seen in the carotid bulb. Velocity elevation: None. VERTEBRAL ARTERIES: Antegrade flow. Measurements: R Bulb: 78.3cm/s PS / 20.3cm/s ED R CCA: 63.5cm/s PS / 15.6cm/s ED R ECA: 95.1cm/s PS / 19.1cm/s ED R ICA Prox: 106.2cm/s PS / 25cm/s ED R ICA Mid: 85.1cm/s PS / 20.3cm/s ED R ICA Distal: 77.6cm/s PS /24cm/s ED R Vert: 52cm/s PS / 15.3cm/s ED R SVR: 1.7 R DVR: 1.6 L Bulb: 51.6cm/s PS / 18.9cm/s ED L CCA: 57.2cm/s PS / 16.2cm/s ED L ECA: 112.2cm/s PS / 22.5cm/s ED L ICA Prox: 66.8cm/s PS / 21.5cm/s ED L ICA Mid: 48.7cm/s PS / 15.1cm/s ED L ICA Distal: 76.1cm/s PS / 20.8cm/s ED L Vert: 60.7cm/s PS / 11.9cm/s ED L SVR: 1.3 L DVR: 1.3 IMPRESSION: No evidence for hemodynamically significant carotid stenosis. Criteria for Carotid Stenosis: Normal: ICA PSV <125 cm/s no plaque or intimal thickening is visible. <50% stenosis: ICA PSV <125 cm/s and plaque or intimal thickening is visible. 50-69% stenosis: ICA PSV is 125-250 cm/s and plaque is visible. >70% stenosis to near occlusion: ICA PSV >250 cm/s with visible plaque and luminal narrowing. DATA REPOSITORY:
--- NOTE | 2024-08-06 08:45 | DI.DEXA_ITS ---
Exam(s) XR DEXA BONE DENSITY W/WO MARIXA EXAM: XR DEXA BONE DENSITY W/WO MARIXA CLINICAL HISTORY: at risk for osteoporosis,screening for osteoporosis in postmenopausal state TECHNIQUE: COMPARISON: CR XR DEXA BONE DENSITY W/WO MARIXA from 06/08/2020 FINDINGS: Lateral Spine Image: Unremarkable. No compression deformities identified. Left hip: Total T-Score: -0.8. This compares to -1.8 on the prior examination. Total Z-Score: 1.0 T- and Z-scores: No evidence of osteoporosis. Lumbar Spine: Total T-Score: -0.8. This compares to -1.7 on the prior examination. Total Z-Score: 1.6 T- and Z-scores: No evidence of osteoporosis. Left forearm: There is osteoporosis seen in the left distal forearm with a T-score of -2.5. IMPRESSION: 1. No evidence of osteoporosis in the left hip or lumbar spine. 2. Osteoporosis is seen in the distal left forearm.
--- NOTE | 2024-08-06 13:29 | DI.RAD_ITS ---
Exam(s) XR THORACIC SPINE COMPLETE EXAM: XR THORACIC SPINE COMPLETE CLINICAL HISTORY: back pain, osteopenia, m54.9. TECHNIQUE: 2D digital imaging was performed. Three views. COMPARISON: CT CT CHEST WO from 05/21/2024 FINDINGS: BONES: There is no fracture or destructive lesion. The vertebral bodies and posterior elements are un remarkable. ALIGNMENT: Mild scoliosis at the thoracolumbar junction. Question mild scoliosis versus patient posi tioning at the upper thoracic region. DISKS: Narrowing of the anterior disc spaces and small endplate osteophytes in the mid thoracic spin e. SOFT TISSUE: Catheter tip in upper right atrium. IMPRESSION: Degenerative disc changes and mild scoliosis. No compression fracture. DATA REPOSITORY: RADIATION DOSE DELIVERED:
== END 2024-08-06 02:32 ==
LOC: DI 02:13
PROVIDERS: PCP Student in an Organized Health Care Education/Training Program; Visit Provider Student in an Organized Health Care Education/Training Program
DX: M51.26 Other intervertebral disc displacement, lumbar region (principal); R42 Dizziness and giddiness; Z13.820 Encounter for screening for osteoporosis; Z78.0 Asymptomatic menopausal state
CPT/HCPCS: 77080; 72072; 93880

== ENCOUNTER 2024-08-06 03:37 | Outpatient (CLI) | payer MEDICARE, SELFPAY ==
[2024-08-06 14:04] LABS: Hemoglobin A1C 5.8 % (<5.7)
[2024-08-06 14:12] LABS: Anion Gap 11.2 mmol/L (3-11); BUN 27 mg/dL (7-18); CO2 24.8 mmol/L (21.0-32.0); CREATININE 0.9 mg/dL (0.55-1.02); Calcium 10.2 mg/dL (8.5-10.1); Chloride 101 mmol/L (98-107); Estimated GFR 66.67 (mL/min/1.73m2); Glucose 108 mg/dL (74-106); Sodium 137 mmol/L (136-145); TSH (W/Ref FT4) 1.39 uIU/mL (0.36-3.74); Vitamin D 25 Total 42.7 ng/mL (30-100)
== END 2024-08-06 03:38 | disposition home or self-care (01) ==
LOC: LBO 03:37
PROVIDERS: Absent Provider Student in an Organized Health Care Education/Training Program; PCP Student in an Organized Health Care Education/Training Program; Referring Provider Student in an Organized Health Care Education/Training Program; Visit Provider Student in an Organized Health Care Education/Training Program
DX: I10 Essential (primary) hypertension (principal); R73.03 Prediabetes; R94.6 Abnormal results of thyroid function studies; R42 Dizziness and giddiness; R55 Syncope and collapse; K90.9 Intestinal malabsorption, unspecified; R73.09 Other abnormal glucose
CPT/HCPCS: 36415; 77080; 80048; 82306; 72072; 83036; 84443; 93880

== ENCOUNTER 2024-10-05 02:29 | Outpatient (RCR) | payer MEDICARE, SELFPAY ==
[2024-10-05 08:53] LABS: Abs Immature Grans 0.07 10^3/uL (0.0-0.06); Absolute Basophil Count 0.05 10^3/uL (0.0-0.2); Absolute Lymphocyte Count 1.11 10^3/uL (1.2-3.4); Absolute Monocyte Count 0.95 10^3/uL (0.1-0.8); Absolute Neutrophil Count 5.13 10^3/uL (1.2-6.7); Basophils % 0.7 %; HCT 39.5 % (36.0-46.0); HGB 13.2 g/dL (11.2-15.7); Lymphocytes % 15.2 %; MCH 30.3 pg (27.0-33.0); MCHC 33.4 % (32.0-36.0); MCV 91 fL (80-95); Neutrophils % 70.1 %; Platelet Count 177 10^3/uL (130-400); RBC 4.35 10^6/uL (3.93-5.22); RDW 13.3 % (11.7-14.6); RDW-SD 44.6 fL; WBC 7.31 10^3/uL (4.4-10.8)
[2024-10-05 09:14] LABS: ALT 30 U/L (14-59); AST 16 U/L (15-37); Albumin 3.6 g/dL (3.4-5.0); Alkaline Phosphatase 47 U/L (46-116); Anion Gap 9.9 mmol/L (3-11); BUN 22 mg/dL (7-18); Bilirubin, Total 0.55 mg/dL (0.2-1.0); CO2 27.1 mmol/L (21.0-32.0); CREATININE 1.1 mg/dL (0.55-1.02); Calcium 9.6 mg/dL (8.5-10.1); Chloride 104 mmol/L (98-107); Glucose 90 mg/dL (74-106); Magnesium 1.9 mg/dL (1.8-2.4); Potassium 3.6 mmol/L (3.5-5.1); Sodium 141 mmol/L (136-145); Total Protein 7.1 g/dL (6.4-8.2)
[2024-10-05] MEDS: Normal Saline Flush 10 ML SYR IVP (09:50)
== END 2024-10-30 23:59 | disposition home or self-care (01) ==
LOC: INF 02:29
PROVIDERS: PCP Student in an Organized Health Care Education/Training Program; Visit Provider Nurse Practitioner
DX: C06.9 Malignant neoplasm of mouth, unspecified (principal)
CPT/HCPCS: 36591; 80053; 83735; 85025

== ENCOUNTER 2024-11-16 01:44 | Outpatient (RCR) | payer MEDICARE, SELFPAY ==
[2024-11-16 08:42] LABS: WBC 4.97 10^3/uL (4.4-10.8)
[2024-11-16 08:43] LABS: Abs Immature Grans 0.05 10^3/uL (0.0-0.06); Absolute Basophil Count 0.05 10^3/uL (0.0-0.2); Absolute Lymphocyte Count 0.85 10^3/uL (1.2-3.4); Absolute Neutrophil Count 3.22 10^3/uL (1.2-6.7); HCT 37.9 % (36.0-46.0); HGB 12.4 g/dL (11.2-15.7); Lymphocytes % 17.1 %; MCH 30.1 pg (27.0-33.0); MCHC 32.7 % (32.0-36.0); MCV 92 fL (80-95); Monocytes % 16.1 %; Neutrophils % 64.8 %; Platelet Count 157 10^3/uL (130-400); RBC 4.12 10^6/uL (3.93-5.22); RDW 13.6 % (11.7-14.6); RDW-SD 45.8 fL
[2024-11-16 09:01] LABS: ALT 18 U/L (14-59); AST 15 U/L (15-37); Albumin 3.3 g/dL (3.4-5.0); Alkaline Phosphatase 48 U/L (46-116); Anion Gap 12.1 mmol/L (3-11); BUN 21 mg/dL (7-18); Bilirubin, Total 0.7 mg/dL (0.2-1.0); CO2 24.9 mmol/L (21.0-32.0); CREATININE 1.2 mg/dL (0.55-1.02); Calcium 9.2 mg/dL (8.5-10.1); Chloride 108 mmol/L (98-107); Estimated GFR 47.21 (mL/min/1.73m2); Glucose 118 mg/dL (74-106); Magnesium 1.8 mg/dL (1.8-2.4); Potassium 3.4 mmol/L (3.5-5.1); Sodium 145 mmol/L (136-145); Total Protein 6.6 g/dL (6.4-8.2)
[2024-11-16 10:06] LABS: TSH 1.13 uIU/mL (0.36-3.74)
[2024-11-16] MEDS: Normal Saline Flush 10 ML SYR IVP (10:52)
== END 2024-11-30 23:59 | disposition home or self-care (01) ==
LOC: INF 01:44
PROVIDERS: Internal Medicine Hematology; PCP Family Medicine; Visit Provider Nurse Practitioner
DX: C06.9 Malignant neoplasm of mouth, unspecified (principal); E44.1 Mild protein-calorie malnutrition
CPT/HCPCS: 36591; 80053; 83735; 84439; 84443; 85025

== ENCOUNTER 2024-12-16 02:22 | Outpatient (CLI) | payer MEDICARE, SELFPAY ==
[2024-12-16 10:26] LABS: Calculated LDL 80 mg/dL (<100); Cholesterol 174 mg/dL (<200); HDL Cholesterol 66 mg/dL (>or=50); Triglyceride 140 mg/dL (<150)
== END 2024-12-16 02:23 | disposition home or self-care (01) ==
LOC: LBO 02:22
PROVIDERS: PCP Nurse Practitioner Family; Visit Provider Nurse Practitioner Family
DX: E78.00 Pure hypercholesterolemia, unspecified (principal)
CPT/HCPCS: 36415; 80061

== ENCOUNTER 2024-12-31 02:34 | Outpatient (CLI) | payer MEDICARE, SELFPAY ==
--- NOTE | 2024-12-31 07:45 | DI.MRI_ITS ---
Exam(s) MR BRAIN WO EXAM: MR BRAIN WO CLINICAL HISTORY: ? stroke,double vision,h53.2 TECHNIQUE: Multiplanar multisequence MRI of the brain was performed. COMPARISON: MR MR BRAIN WO/W from 07/31/[address] HEAD WO from 05/17/[address] HEAD CERV SPINE FACIAL WO from 05/21/2024 FINDINGS: VENTRICLES AND EXTRA AXIAL SPACES: Normal in size and morphology for the patient's age. MIDLINE SHIFT: None. CEREBRAL PARENCHYMA: No focus of restricted diffusion to suggest acute infarct. No space-occupying le martin identified. There are multiple areas of hyperintense signal seen on the FLAIR and T2 weighted im ages most consistent with chronic microvascular ischemic disease. There again seen old lacunar infar cts in the cerebellum. HEMORRHAGE: None. BRAINSTEM/CEREBELLUM: Normal. CALVARIUM: Normal. VISUALIZED PARANASAL SINUSES/MASTOIDS:There is fluid seen in the left mastoid air cells. The remaini ng visualized paranasal sinuses are clear. The right mastoid air cells are well pneumatized. [place]: Normal flow void. PITUITARY GLAND: Unremarkable. OTHER FINDINGS: None. IMPRESSION: 1. No evidence of an acute infarct. 2. Age-related cerebral atrophy and chronic microvascular ischemic disease. DATA REPOSITORY:
== END 2024-12-31 02:54 ==
LOC: DI 02:35
PROVIDERS: PCP Nurse Practitioner Family; Visit Provider Nurse Practitioner Family
DX: H53.2 Diplopia (principal)
CPT/HCPCS: 70551

== ENCOUNTER 2025-01-05 08:31 | Emergency (ER) | payer MEDICARE, SELFPAY ==
[2025-01-05 08:41] VITALS: BP 129/77; PULSE 63; RESP 18; TEMP 36.6; O2SAT 97
[2025-01-05 08:45] VITALS: BP 129/77; PULSE 63; RESP 18; TEMP 36.6; O2SAT 97
--- NOTE | 2025-01-05 09:00 | DI.CT_ITS ---
Exam(s) CT BRAIN NECK CTA EXAM: CT BRAIN NECK CTA CLINICAL HISTORY: temporal pain; hx temporal arteritis. TECHNIQUE: Imaging Protocol: Axial CT angiography was performed with multi-slice acquisition and mu lti-planar and/or 3D reconstructions. CONTRAST MATERIAL: Intravenous: Omnipaque 350 Contrast volume:70 mL COMPARISON: CT CT HEAD WO from 05/17/[address] HEAD CERV SPINE FACIAL WO from 05/21/2024 MR MR BRAIN WO from 12/31/2024 FINDINGS: CTA Neck W: Aortic arch anatomy: The aortic arch anatomy is conventional and there is no significant stenosis at the origin of the great vessels off of the aortic arch. No intimal flap evident. Anterior circulation: Both common carotid arteries ascend with normal luminal diameters. At the level the carotid bulbs and proximal internal carotid arteries there is some calcified and non calcified plaque bilaterally. Estimated at 20 percent stenosis on the left side and 30 stenosis on t he right side. Internal carotid arteries in the upper neck are patent and non tortuous as well as be ing patent in the skull base. Posterior circulation: Both vertebral arteries originate in conventional fashion off of the subclavian arteries and there is no obvious stenosis at the origin of the vertebral arteries. Both vertebral arteries exhibit normal luminal diameters within the foramen transversarium. Right ve rtebral artery is dominant. Both vertebral arteries contribute to the formation of the basilar artery at the skull base.. Right vertebral artery is dominant at this level. Left vertebral artery contribution to the basilar artery is a thin vessel. CTA Brain W: Anterior circulation: Both internal carotid arteries are patent in the skull base-carotid canals as well as within the cave rnous sinuses. There is circumferential mural calcification with thin the intracavernous internal ca rotid arteries but there does not appear to be a tight stenosis at this level. The supraclinoid aspects of the ICAs are patent. Both A1 segments are patent as are the anterior cer ebral arteries and there is no evidence of aneurysm at the level of the anterior communicating artery . Both middle cerebral arteries are patent with no evidence of significant stenosis nor intraluminal th rombus. There also no aneurysms of these vessels. Posterior circulation: The basilar artery ascends in the midline. Distally it gives off patent bilateral superior cerebella r arteries. Above this level the basilar artery terminates as patent bilateral posterior cerebral arteries. There is a posterior communicating artery on the right side of the atldza-kk-Jyhrur adding to the cecily w in the right [employer]. There is no posterior communicating artery evident on the left side of the circl e-of-Miranda. There is no evidence of aneurysm at the tip of the basilar artery nor elsewhere in the xtaoem-sw-Fbsk is. CT BRAIN: There is no evidence of intracranial hemorrhage, mass effect, or shift of midline structures. There are no extra-axial fluid collections. Ventricles are not enlarged or shifted. Small lacunar infarct in the left cerebellar hemisphere noted and slightly larger in the right cerebe llar hemisphere. These posterior fossa findings are unchanged from CT scan of May 2024. There is some bilateral periventricular hypodensity consistent with chronic small vessel disease. There i s also lacunar infarct in the posterior limb of the right internal capsule, more evident than previou s. There are no ring enhancing lesions in the brain and no abnormal meningeal enhancement. IMPRESSION: 1. There is some plaque bilaterally at the carotid bifurcations-proximal ICAs but estimated at and le ss than 30 percent stenosis bilaterally. 2. Patent vertebral arteries. The right vertebral artery is dominant. 3. Patent intracranial arteries. No significant stenosis. No aneurysms. 4. 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 There is a small nonhemorrhagic lacu josias infarct in the posterior limb of the right internal capsule bordering with the outer aspect of th e right thalamus which appears more prominent than previous. If clinically indicated follow-up MRI w ith diffusion imaging can be performed to determine if there is restricted diffusion at this level or elsewhere in the brain. 5. There are no ring enhancing lesions in the brain. Report called by myself to ER provider 01/05/2025 at 11:25 a.m. RADIATION DOSE DELIVERED: 2,254.12mGy.cm Total DLP DATA REPOSITORY: All CT scans at this facility are submitted to the National Radiology Data Registry (NRDR) Dose Index Registry (DIR) with the [employer] ([employer]). RADIATION OPTIMIZATION: All CT scans at this facility use at least one of these dose optimization te chniques: automated exposure control; mA and/or kV adjustment per patient size (includes targeted exa ms where dose is matched to clinical indication); or iterative reconstruction.
[2025-01-05 09:46] LABS: Abs Immature Grans 0.07 10^3/uL (0.0-0.06); Absolute Basophil Count 0.05 10^3/uL (0.0-0.2); Absolute Lymphocyte Count 0.99 10^3/uL (1.2-3.4); Absolute Monocyte Count 0.76 10^3/uL (0.1-0.8); Absolute Neutrophil Count 4.39 10^3/uL (1.2-6.7); Basophils % 0.8 %; HCT 42.4 % (36.0-46.0); HGB 14.3 g/dL (11.2-15.7); Immature Grans % 1.1 %; Lymphocytes % 15.8 %; MCH 30.5 pg (27.0-33.0); MCHC 33.7 % (32.0-36.0); MCV 90 fL (80-95); MPV 9.9 fL (8.0-11.0); Monocytes % 12.1 %; Neutrophils % 70.2 %; Platelet Count 179 10^3/uL (130-400); RBC 4.69 10^6/uL (3.93-5.22); RDW 13.5 % (11.7-14.6); RDW-SD 44.5 fL; WBC 6.26 10^3/uL (4.4-10.8)
[2025-01-05 09:47] LABS: ESR 9 mm/hr (0-30)
[2025-01-05 10:01] LABS: COVID-19 PCR Negative (Negative); Influenza A PCR Negative (Negative); Influenza B PCR Negative (Negative); RSV PCR Negative (Negative)
[2025-01-05 10:02] LABS: Source Nasopharynx
[2025-01-05 10:02] LABS: ALT 26 U/L (14-59); AST 17 U/L (15-37); Alkaline Phosphatase 55 U/L (46-116); Anion Gap 10.5 mmol/L (3-11); BUN 19 mg/dL (7-18); Bilirubin, Total 0.7 mg/dL (0.2-1.0); CO2 25.5 mmol/L (21.0-32.0); CREATININE 1.1 mg/dL (0.55-1.02); Calcium 9.6 mg/dL (8.5-10.1); Chloride 102 mmol/L (98-107); Glucose 95 mg/dL (74-106); Lipase 33 U/L (<78); Potassium 3.3 mmol/L (3.5-5.1); Sodium 138 mmol/L (136-145); Total Protein 7.7 g/dL (6.4-8.2)
[2025-01-05 10:05] LABS: C-Reactive Protein < 0.50 mg/dL (<or=0.5)
[2025-01-05] MEDS: Omnipaque 350 MG/ML 100 ML BTL 70 ML IJ (10:32)
[2025-01-05] MEDS: Normal Saline - Diluent 50 ML VIAL IJ (10:33)
--- NOTE | 2025-01-05 11:22 | W.ED.GENAD ---
Discharge Plan Disposition Patient Disposition: Home Condition: Stable Discharge Details Clinical Impression: Neck pain on left side Primary Care Provider: Eli Polanco ED Provider: Vicente Berg Home Meds and New Rx's Prescriptions: Continued Xarelto 10 mg tablet 10 mg PO DAILY Qty: 90 1RF prednisone 5 mg tablet 5 mg PO DAILY Qty: 90 1RF Rx Instructions: Continue 5mg, per RHEUM losartan 50 mg tablet 50 mg PO DAILY Patient Comments: [facility] [place] Vascular note 04/18/23 Dr. Monreal.HE chlorhexidine gluconate [Paroex Oral Rinse] 0.12 % mouthwash 15 ml mucous membrane BID Qty: 300 0RF Rx Instructions: Trial mouth cleaning rinse x1 week; STOP if it stings albuterol sulfate 90 mcg/actuation HFA aerosol inhaler 1 puff INHALATION Q6H PRN PRN (Reason: shortness of breath or wheezing) Qty: 6.7 1RF Rx Instructions: as best dispensed per insurance budesonide 0.25 mg/2 mL suspension for nebulization 0.25 mg inhalation BID Qty: 60 6RF budesonide-formoterol [Symbicort] 160-4.5 mcg/actuation HFA aerosol inhaler 2 puff inhalation BID Qty: 10.2 6RF diclofenac sodium 3 % gel 1 applic topical BID Qty: 100 0RF acetaminophen [Tylenol] 325 MG tablet 650 mg PO Q6H PRN PRN atorvastatin 40 mg tablet 40 mg PO DAILY Qty: 90 3RF ipratropium-albuterol 0.5 mg-3 mg(2.5 mg base)/3 mL solution for nebulization 3 ml inhalation Q6H PRN (Reason: shortness of breath or wheezing) Qty: 180 1RF pantoprazole 40 mg tablet,delayed release (DR/EC) 40 mg PO DAILY Qty: 90 3RF amlodipine 5 mg tablet 10 mg PO DAILY Qty: 180 3RF magnesium oxide 200 mg magnesium tablet 200 mg PO BID Rx Instructions: [facility] [place] Note 06/01/24: Mg Oxide 400mg QD. (also, Mg 2gm IV infusions.)HE pt daughter states [facility] [place] advised to take 200mg in the am and if she does not have diarrhea, then take 1 am and 1 pm. if she does have diarrhea, they told her to stop taking, and they would give her infusions instead. nc cyanocobalamin (vitamin B-12) 1,000 mcg tablet See Rx Instructions .ROUTE .COMPLEX Qty: 90 3RF Dose Instruction: TAKE ONE TABLET BY MOUTH EVERY DAY Rx Instructions: TAKE ONE TABLET BY MOUTH EVERY DAY citalopram 40 mg tablet 40 mg PO DAILY Qty: 90 3RF hydroxyzine HCl 25 mg tablet 25 mg PO BID PRN (Reason: Worry, Anxiety, Nausea) Qty: 30 2RF Rx Instructions: Trial for anxiety cholecalciferol (vitamin D3) 50 mcg (2,000 unit) capsule See Rx Instructions .ROUTE .COMPLEX Qty: 90 3RF Dose Instruction: TAKE ONE CAPSULE BY MOUTH EVERY DAY Rx Instructions: TAKE ONE CAPSULE BY MOUTH EVERY DAY potassium chloride 10 mEq capsule, extended release 10 meq PO DAILY Patient Comments: TAKE ONE CAPSULE BY MOUTH EVERY DAY No Action gabapentin 300 mg capsule 300 mg PO QHS Qty: 90 3RF Discharge Instructions Instructions: Neck Pain ED Additional Instructions: You were seen in the emergency department for your left-sided neck pain. Please apply gentle heat to the area, continue using the Voltaren gel and take regular doses of Tylenol. You had some new findings on your CT I did discuss some with our neurologist Dr. Jauregui, she suggest starting on an 81 mg [id number] baby aspirin, she will follow-up with you in office, please return to the emergency department for any slurred speech, any confusion any motor weakness or new sensory deficits, there is no evidence of elevated inflammatory markers which can be a hallmark of temporal arteritis but you may need to definitively follow-up with a referral to vascular surgeon for a biopsy of a small capillary in the area of your pain but I do think this is mostly related to musculoskeletal neck pain. Referrals: Eli Polanco APRN [Primary Care Provider] - Discharge Data Discharge Date/Time-TO BE ENTERED AT DEPARTURE: 01/05/25 12:30 HPI General Date/Time Provider Initiated Documentation: 01/05/25 08:52. HPI Narrative: 74 year-old female presents to ED today by POV/ambulating with a chief complaint of L sided head pressure, with hx of jaw cancer with onset 3-4 days ago. Quality described as L sided headache- and left lateral neck pain, no radiation to fever, night sweats, tenderness to light touch, visual changes, chest pain, dizziness, slurred speech, weakness, motor deficits, nausea. Severity is described as mild to moderate. Palliating factors include nothing specific attempted. Provoking factors include nothing specific. Events leading up to the incident/Associated Symptoms: Patient states she has been worked up for possible mini-strokes in the past, and has a history of temporal arteritis on the contralateral side. Patient not anticoagulated. Related Data Home Medications ?Medication ?Instructions ?Recorded ?Confirmed acetaminophen 325 mg tablet 650 mg PO Q6H PRN PRN 11/23/14 01/07/25 (Tylenol) losartan 50 mg tablet 50 mg PO DAILY 05/03/23 01/07/25 rivaroxaban 10 mg tablet (Xarelto) 10 mg PO DAILY #90 tabs 08/20/23 01/07/25 atorvastatin 40 mg tablet 40 mg PO DAILY #90 tabs 11/14/23 01/07/25 chlorhexidine gluconate 0.12 % 15 ml mucous membrane BID #300 mL 01/09/24 01/07/25 mouthwash (Paroex Oral Rinse) albuterol sulfate 90 mcg/actuation 1 puff inhalation Q6H PRN PRN 01/14/24 01/07/25 aerosol inhaler shortness of breath or wheezing #6.7 grams budesonide 0.25 mg/2 mL suspension 0.25 mg (2 mL) inhalation BID #60 01/14/24 01/07/25 for nebulization mL budesonide-formoterol HFA 160 2 puff inhalation BID #10.2 grams 01/14/24 01/07/25 mcg-4.5 mcg/actuation aerosol inhaler (Symbicort) ipratropium 0.5 mg-albuterol 3 mg 3 ml inhalation Q6H PRN shortness 01/14/24 01/07/25 (2.5 mg base)/3 mL nebulization of breath or wheezing #180 mL soln pantoprazole 40 mg tablet,delayed 40 mg PO DAILY #90 tabs 03/17/24 01/07/25 release amlodipine 5 mg tablet 10 mg (2 x 5 mg) PO DAILY #180 tabs 05/13/24 01/07/25 potassium chloride 10 mEq 10 meq PO DAILY 05/19/24 01/07/25 capsule,extended release magnesium oxide 200 mg PO BID 06/12/24 01/07/25 prednisone 5 mg tablet 5 mg PO DAILY #90 tabs 07/07/24 01/07/25 cyanocobalamin (vitamin B-12) See Rx Instructions .Route 10/09/24 01/07/25 1,000 mcg tablet .COMPLEX #90 tabs citalopram 40 mg tablet 40 mg PO DAILY #90 tabs 11/05/24 01/07/25 hydroxyzine HCl 25 mg tablet 25 mg PO BID PRN Worry, Anxiety, 11/24/24 01/07/25 Nausea #30 tabs cholecalciferol (vitamin D3) 50 See Rx Instructions .Route 12/04/24 01/07/25 mcg (2,000 unit) capsule .COMPLEX #90 caps diclofenac sodium 3 % topical gel 1 applic topical BID neck/shoulder 01/01/25 01/07/25 pain #100 grams gabapentin 300 mg capsule 300 mg PO QHS #90 caps 01/07/25 01/07/25 Previous Rx's ?Medication ?Instructions ?Recorded rivaroxaban 10 mg tablet (Xarelto) 10 mg PO DAILY #90 tabs 08/20/23 atorvastatin 40 mg tablet 40 mg PO DAILY #90 tabs 11/14/23 chlorhexidine gluconate 0.12 % 15 ml mucous membrane BID #300 mL 01/09/24 mouthwash (Paroex Oral Rinse) albuterol sulfate 90 mcg/actuation 1 puff inhalation Q6H PRN PRN 01/14/24 aerosol inhaler shortness of breath or wheezing #6.7 grams budesonide 0.25 mg/2 mL suspension 0.25 mg (2 mL) inhalation BID #60 01/14/24 for nebulization mL budesonide-formoterol HFA 160 2 puff inhalation BID #10.2 grams 01/14/24 mcg-4.5 mcg/actuation aerosol inhaler (Symbicort) ipratropium 0.5 mg-albuterol 3 mg 3 ml inhalation Q6H PRN shortness 01/14/24 (2.5 mg base)/3 mL nebulization of breath or wheezing #180 mL soln pantoprazole 40 mg tablet,delayed 40 mg PO DAILY #90 tabs 03/17/24 release amlodipine 5 mg tablet 10 mg (2 x 5 mg) PO DAILY #180 tabs 05/13/24 prednisone 5 mg tablet 5 mg PO DAILY #90 tabs 07/07/24 cyanocobalamin (vitamin B-12) See Rx Instructions .Route 10/09/24 1,000 mcg tablet .COMPLEX #90 tabs citalopram 40 mg tablet 40 mg PO DAILY #90 tabs 11/05/24 hydroxyzine HCl 25 mg tablet 25 mg PO BID PRN Worry, Anxiety, 11/24/24 Nausea #30 tabs cholecalciferol (vitamin D3) 50 See Rx Instructions .Route 12/04/24 mcg (2,000 unit) capsule .COMPLEX #90 caps diclofenac sodium 3 % topical gel 1 applic topical BID neck/shoulder 01/01/25 pain #100 grams gabapentin 300 mg capsule 300 mg PO QHS #90 caps 01/07/25 Allergies Allergy/AdvReac Type Severity Reaction Status Date / Time clarithromycin Allergy Severe HIVES Verified 01/07/25 08:16 Penicillins Allergy Severe HIVES Verified 01/07/25 08:16 tetracycline Allergy Severe HIVES, Verified 01/07/25 08:16 HALLUCINATIONS eszopiclone (Eszopiclone) Allergy Unknown pt unsure Verified 01/07/25 08:16 of reaction telithromycin (Telithromycin) Allergy Unknown pt unsure Verified 01/07/25 08:16 raloxifene HCl (From Evista) AdvReac Intermediate BODY ACHES Verified 01/07/25 08:16 sulfamethoxazole (From AdvReac Intermediate HEADACHE,VO Verified 01/07/25 08:16 Bactrim) MITING trimethoprim (From Bactrim) AdvReac Intermediate HEADACHE,VO Verified 01/07/25 08:16 MITING alendronate sodium AdvReac Mild BODY ACHE Verified 01/07/25 08:16 codeine AdvReac Mild GI UPSET Verified 01/07/25 08:16 risedronate sodium (From AdvReac Mild BODY ACHES Verified 01/07/25 08:16 Actonel) Bisphosphonates AdvReac Unknown achy joints Verified 01/07/25 08:16 hydrocodone (Hydrocodone) AdvReac Unknown vomitting Verified 01/07/25 08:16 Macrolide Antibiotics AdvReac Unknown vomitting Verified 01/07/25 08:16 and hallucinations morphine AdvReac Unknown pt. felt Verified 01/07/25 08:16 like she was floating, states she thinks she got to Sulfa (Sulfonamide AdvReac Other (See Verified 01/07/25 08:16 Antibiotics) Comment) General Stated Complaint: Headache TENA: 3 Review of Systems All systems reviewed & are unremarkable except as noted in HPI and below Exam Narrative Exam Narrative: GENERAL APPEARANCE: Well-nourished, non-toxic, awake and alert, atraumatic, no acute distress. SKIN: Warm, pink, dry, intact, without rashes/lesions/ulcerations. HEAD: Normocephalic, atraumatic, normal hair distribution for gender/age, no tenderness to light touch in L parietal scalp EYES: Normal conjunctiva, no exudates on lids/lashes. ENT: Nares patent, no circumoral cyanosis, no facial swelling NECK: Supple, trachea midline, painless cervical ROM, L lateral neck pain centered around the scalenes muscles superiorly. LUNGS/CHEST: Lungs CTA bilaterally- no rhonchi/rales/wheezes diffusely, non-labored respirations, normal A/P diameter, symmetrical expansion, no chest wall deformity HEART (CV/PV): Regular rate and rhythm without murmur, no peripheral edema, no JVD, no carotid bruit. ABDOMEN: Soft, non-distended, no guarding, no tenderness MSK: Normal ROM, no swelling/deformity to bilateral UEs or LEs, moving all extremities without weakness, no cyanosis, spine midline without tenderness, normal curvature. NEURO: Mental Status AAOx4 - alert to person, place, time, events No facial droop, no forehead involvement, no dysmetria with cerebellar testing Motor: No focal weakness - strength 5/5 in bilateral UEs and LEs, proximal and distal, symmetric. Sensory: sensation intact to light touch globally. Gait normal: patient ambulated without ataxia into ED room. PSYCH: euthymic, cooperative, pleasant, appropriate speech Course Vital Signs Vital signs: Vital Signs Temperature 36.6 C 01/05/25 08:41 Pulse 63 01/05/25 08:41 Respiratory Rate 18 01/05/25 08:41 Blood Pressure 129/77 01/05/25 08:41 Pulse Oximetry 97 01/05/25 08:41 Temperature 36.6 C 01/05/25 08:45 Pulse 63 01/05/25 08:45 Respiratory Rate 18 01/05/25 08:45 Blood Pressure 129/77 01/05/25 08:45 Pulse Oximetry 97 01/05/25 08:45 Lab/Test Results Lab/Test Results: Laboratory Tests Range/Units 01/05/25 01/05/25 09:12 09:34 WBC (4.4-10.8) 10^3/uL 6.26 RBC (3.93-5.22) 10^6/uL 4.69 Hgb (11.2-15.7) g/dL 14.3 Hct (36.0-46.0) % 42.4 MCV (80-95) fL 90 MCH (27.0-33.0) pg 30.5 MCHC (32.0-36.0) % 33.7 RDW (11.7-14.6) % 13.5 Plt Count (130-400) 10^3/uL 179 MPV (8.0-11.0) fL 9.9 Immature Gran % % 1.1 Neutrophils % % 70.2 Lymphocytes % % 15.8 Monocytes % % 12.1 Eosinophils % % 0.0 Basophils % % 0.8 Nucleated RBC % (0.0-0.3) % 0.0 Absolute Neutrophils (1.2-6.7) 10^3/uL 4.39 Absolute Lymphocytes (1.2-3.4) 10^3/uL 0.99 L Absolute Monocytes (0.1-0.8) 10^3/uL 0.76 Absolute Eosinophils (0.0-0.7) 10^3/uL 0.00 Absolute Basophils (0.0-0.2) 10^3/uL 0.05 ESR (0-30) mm/hr 9 Sodium (136-145) mmol/L 138 Potassium (3.5-5.1) mmol/L 3.3 L Chloride (98-107) mmol/L 102 Carbon Dioxide (21.0-32.0) mmol/L 25.5 Anion Gap (3-11) mmol/L 10.5 BUN (7-18) mg/dL 19 H Creatinine (0.55-1.02) mg/dL 1.1 H Est GFR (CKD-EPI 2020) (mL/min/1.73m2) 52.40 Glucose (74-106) mg/dL 95 Calcium (8.5-10.1) mg/dL 9.6 Total Bilirubin (0.2-1.0) mg/dL 0.7 AST (15-37) U/L 17 ALT (14-59) U/L 26 Alkaline Phosphatase (46-116) U/L 55 C-Reactive Protein (<or=0.5) mg/dL < 0.50 Total Protein (6.4-8.2) g/dL 7.7 Albumin (3.4-5.0) g/dL 4.0 Lipase (<78) U/L 33 COVID-19 Source Nasopharynx SARS-CoV-2 (PCR) (Negative) Negative Influenza Type A (PCR) (Negative) Negative Influenza Type B (PCR) (Negative) Negative RSV (PCR) (Negative) Negative Medical Decision Making This dictation utilizes [id number] dictation software and may contain unedited grammatical errors. 74 year-old female presents to ED today by POV/ambulating with a chief complaint of L sided head pressure, with hx of jaw cancer with onset 3-4 days ago. Quality described as L sided headache- and left lateral neck pain, no radiation to fever, night sweats, tenderness to light touch, visual changes, chest pain, dizziness, slurred speech, weakness, motor deficits, nausea. Severity is described as mild to moderate. Palliating factors include nothing specific attempted. Provoking factors include nothing specific. Events leading up to the incident/Associated Symptoms: Patient states she has been worked up for possible mini-strokes in the past, and has a history of temporal arteritis on the contralateral side. Patients' medical history: History of VTE, trigeminal neuralgia of left side face, polymyalgia rheumatica, hypertension, pulmonary embolism, BPPV, tinnitus, vertigo, PVD. Family and social history: Lives at home with , no ETOH/drug use. Pertinent exam findings / vital signs include tenderness at skin's insertion to the base of the occipital parietal area, neuro intact without any focal deficits, benign cardiopulmonary exam, no carotid bruit bilaterally, no tenderness to light touch of scalp, no mastoid tenderness. Differential / pathologies of concern include temporal arteritis, neck pain, trigeminal neuralgia, lisa garza less likely, stroke/ICH, headache. Diagnostic studies of: -CBC, CMP, CRP/ESR, lipase, respiratory panel PCR, CTA brain and neck. - CBC is unremarkable - CMP shows mild hypokalemia, baseline creatinine - CRP/ESR negative - Lipase negative - PCR swab negative - CTA shows some bilateral carotid plaques, shows old lacunar infarcts, shows a possible new infarct in L lacunar posterior- possibly new since recent MRI outpatient study- discussed with neurology Interventions of: -Discussed with Neurologist Dr. Jauregui, who will follow-up with the patients findings from today's imaging-patient had an upcoming initial appointment with neurology practice anyway for intermittent double vision ED Course/Assessment/Plan: 74-year-old female presents with left-sided head pain, states she has had temporal arteritis in the past on the contralateral side and has history of trigeminal neuralgia on the left head and jaw. Her tenderness is focal to the skin. She has no tenderness to light touch of the scalp, inflammatory markers are negative, CTA shows no great signs of any vasculitis, she does have some old lacunar infarctions and had a recent outpatient MRI and preparation for establishing care with neurology for intermittent double vision, the CTA today shows a possible area of new infarction since her recent MRI, she is otherwise optimized on therapy for stroke prophylaxis with Xarelto and atorvastatin, did discuss with neurology Dr. Jauregui who recommends adding aspirin daily. The patient has an upcoming appointment with neurology on this or Saturday, reasonable to discharge home and I stressed strict return criteria for any neurologic deficits, advised heat and ice to area of pain for musculoskeletal pain relief topical Voltaren as tolerated. Findings not consistent with motor deficit, slurred speech, temporal arteritis, mastoiditis or infection etiology. Disposition of Neck Pain on Left Side. Patient verbalized understanding of the plan and return to ED criteria and engaged in shared decision making. Medical Records Medical records reviewed: Yes I reviewed the patient's medical records. Imaging Data Radiologic Study: Attestation: I personally reviewed and interpreted this imaging study as follows: Imaging: CT Scan Radiologist's impression: EXAM: CT BRAIN NECK CTA CLINICAL HISTORY: temporal pain; hx temporal arteritis. TECHNIQUE: Imaging Protocol: Axial CT angiography was performed with multi-slice acquisition and multi-planar and/or 3D reconstructions. CONTRAST MATERIAL: Intravenous: Omnipaque 350 Contrast volume:70 mL COMPARISON: CT CT HEAD WO from 05/17/[address] HEAD CERV SPINE FACIAL WO from 05/21/2024 MR MR BRAIN WO from 12/31/2024 FINDINGS: CTA Neck W: Aortic arch anatomy: The aortic arch anatomy is conventional and there is no significant stenosis at the origin of the great vessels off of the aortic arch. No intimal flap evident. Anterior circulation: Both common carotid arteries ascend with normal luminal diameters. At the level the carotid bulbs and proximal internal carotid arteries there is some calcified and noncalcified plaque bilaterally. Estimated at 20 percent stenosis on the left side and 30 stenosis on the right side. Internal carotid arteries in the upper neck are patent and non tortuous as well as being patent in the skull base. Posterior circulation: Both vertebral arteries originate in conventional fashion off of the subclavian arteries and there is no obvious stenosis at the origin of the vertebral arteries. Both vertebral arteries exhibit normal luminal diameters within the foramen transversarium. Right vertebral artery is dominant. Both vertebral arteries contribute to the formation of the basilar artery at the skull base.. Right vertebral artery is dominant at this level. Left vertebral artery contribution to the basilar artery is a thin vessel. CTA Brain W: Anterior circulation: Both internal carotid arteries are patent in the skull base-carotid canals as well as within the cavernous sinuses. There is circumferential mural calcification with thin the intracavernous internal carotid arteries but there does not appear to be a tight stenosis at this level. The supraclinoid aspects of the ICAs are patent. Both A1 segments are patent as are the anterior cerebral arteries and there is no evidence of aneurysm at the level of the anterior communicating artery. Both middle cerebral arteries are patent with no evidence of significant stenosis nor intraluminal thrombus. There also no aneurysms of these vessels. Posterior circulation: The basilar artery ascends in the midline. Distally it gives off patent bilateral superior cerebellar arteries. Above this level the basilar artery terminates as patent bilateral posterior cerebral arteries. There is a posterior communicating artery on the right side of the [id number]-ao-Lhptrj adding to the flow in the right QA TEST LEAD. There is no posterior communicating artery evident on the left side of the lnklco-vy-Sslmkv. There is no evidence of aneurysm at the tip of the basilar artery nor elsewhere in the rbjlgm-zo-Nujhnx. CT BRAIN: There is no evidence of intracranial hemorrhage, mass effect, or shift of midline structures. There are no extra-axial fluid collections. Ventricles are not enlarged or shifted. Small lacunar infarct in the left cerebellar hemisphere noted and slightly larger in the right cerebellar hemisphere. These posterior fossa findings are unchanged from CT scan of May 2024. There is some bilateral periventricular hypodensity consistent with chronic small vessel disease. There is also lacunar infarct in the posterior limb of the right internal capsule, more evident than previous. There are no ring enhancing lesions in the brain and no abnormal meningeal enhancement. IMPRESSION: 1. There is some plaque bilaterally at the carotid bifurcations-proximal ICAs but estimated at and less than 30 percent stenosis bilaterally. 2. Patent vertebral arteries. The right vertebral artery is dominant. 3. Patent intracranial arteries. No significant stenosis. No aneurysms. 4. 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 There is a small nonhemorrhagic lacunar infarct in the posterior limb of the right internal capsule bordering with the outer aspect of the right thalamus which appears more prominent than previous. If clinically indicated follow-up MRI with diffusion imaging can be performed to determine if there is restricted diffusion at this level or elsewhere in the brain. 5. There are no ring enhancing lesions in the brain. Report called by myself to ER provider 01/05/2025 at 11:25 a.m. Lab Data Lab results reviewed: Yes I reviewed the patient's lab results. Labs: Laboratory Tests Range/Units 01/05/25 01/05/25 09:12 09:34 WBC (4.4-10.8) 10^3/uL 6.26 RBC (3.93-5.22) 10^6/uL 4.69 Hgb (11.2-15.7) g/dL 14.3 Hct (36.0-46.0) % 42.4 MCV (80-95) fL 90 MCH (27.0-33.0) pg 30.5 MCHC (32.0-36.0) % 33.7 RDW (11.7-14.6) % 13.5 Plt Count (130-400) 10^3/uL 179 MPV (8.0-11.0) fL 9.9 Immature Gran % % 1.1 Neutrophils % % 70.2 Lymphocytes % % 15.8 Monocytes % % 12.1 Eosinophils % % 0.0 Basophils % % 0.8 Nucleated RBC % (0.0-0.3) % 0.0 Absolute Neutrophils (1.2-6.7) 10^3/uL 4.39 Absolute Lymphocytes (1.2-3.4) 10^3/uL 0.99 L Absolute Monocytes (0.1-0.8) 10^3/uL 0.76 Absolute Eosinophils (0.0-0.7) 10^3/uL 0.00 Absolute Basophils (0.0-0.2) 10^3/uL 0.05 ESR (0-30) mm/hr 9 Sodium (136-145) mmol/L 138 Potassium (3.5-5.1) mmol/L 3.3 L Chloride (98-107) mmol/L 102 Carbon Dioxide (21.0-32.0) mmol/L 25.5 Anion Gap (3-11) mmol/L 10.5 BUN (7-18) mg/dL 19 H Creatinine (0.55-1.02) mg/dL 1.1 H Est GFR (CKD-EPI 2020) (mL/min/1.73m2) 52.40 Glucose (74-106) mg/dL 95 Calcium (8.5-10.1) mg/dL 9.6 Total Bilirubin (0.2-1.0) mg/dL 0.7 AST (15-37) U/L 17 ALT (14-59) U/L 26 Alkaline Phosphatase (46-116) U/L 55 C-Reactive Protein (<or=0.5) mg/dL < 0.50 Total Protein (6.4-8.2) g/dL 7.7 Albumin (3.4-5.0) g/dL 4.0 Lipase (<78) U/L 33 COVID-19 Source Nasopharynx SARS-CoV-2 (PCR) (Negative) Negative Influenza Type A (PCR) (Negative) Negative Influenza Type B (PCR) (Negative) Negative RSV (PCR) (Negative) Negative Quality:SDOH Health Related Social Needs: No Data to Display PFSH All Active Problems (Updated 01/07/25 @ 23:16 by Danika Jauregui MD) Stroke (Chronic) Neck pain on left side (Acute) Neck muscle strain (Acute) Double vision (Acute) Mild protein-calorie malnutrition (Acute) Serum calcium elevated (Acute) At risk for osteoporosis (Acute) Prednisone, Chemo/Radiation (2023) Loss of eyelashes (Acute) Cancer of oral cavity (Acute) [facility] [place] [facility] code from 04.29.24 note.HE Cancer related pain (Acute) 04/08/24 [facility] [place] Hem/Onc note Dysphagia (Acute) 04/08/24 [facility] [place] Hem/Onc note 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 Pure hypercholesterolemia (Acute) Referred otalgia of left ear (Acute) Giant cell arteritis (Acute 2008) Recurrence of symptoms 10/2022 ILD (interstitial lung disease) (Acute) Facial numbness (Acute) chin, @ region resting on PFT equipment TMJ inflammation (Acute) from clenching? positioning? during PFT (~05/22/23) Lip pain (Acute) inner lip pain, into left inner cheek (apthous ulcer? thrush? referred jam/TMJ pain?) Pain in lower jaw (Acute) MEHUL treated with BiPAP (Acute) Bronchiectasis (Acute) Dyspnea on exertion (Acute) Pulmonary emphysema (Acute) Benign essential hypertension (Acute 04/10/13) Fall (Acute) Diarrhea (Acute) Prediabetes (Acute) 10/2022: 5.9 .. 09/2021: 5.7.. Bronchitis (Acute) Hearing loss, bilateral (Acute) Fatigue (Acute) feeling lazy, but chemo? rad? cancer + post fx back Discharged from [facility] 05/19: Encephalopathy and UTI - Ciprofloxacin, magnesium Seen at [facility] ED 05/21: Fall, rib contusion, fracture right great toe - Can wear postop shoe and tape toe to next toe-- Pt reports she is getting better everyday and goes to the cancer center daily for treatment-- Macrocytosis (Acute) Hypokalemia (Acute) PAD (peripheral artery disease) (Chronic) focal rt common iliac artery stenosis per CARD notes, ID in 2019 Peripheral vascular disease (Chronic) Orthostasis (Acute) Temporal arteritis (Acute) Depressive disorder, not elsewhere classified (Acute 10/12/11) Esophageal reflux (Acute 12/10/12) EGD 05/25/13 KD: mild antritis and distal esophagitis; int metaplasia, no dysplasia Allergic rhinitis, unspecified (Acute 12/10/12) Leukoplakia of oral cavity (Acute) Anxiety and depression (Chronic) GERD (gastroesophageal reflux disease) (Chronic) Medical History Acute UTI VTE (venous thromboembolism) 04/08/24 [facility] [place] Hem/Onc note Primary osteoarthritis of right hip Periodic limb movement disorder Primary osteoarthritis of left knee (~07/2023) Rheumatology Trigeminal neuralgia of left side of face questionable -- was this the oral cancer? Other pulmonary embolism without acute cor pulmonale (Unknown) Massive PE, Apr 08, 2022 per pt report .. [facility] [place] note 04/16/23.HE Former smoker quit 23 yrs ago! Neoplasm of unspecified behavior of bone, soft tissue, and skin Lumbago (12/10/12) Osteoarthritis DJD (degenerative joint disease) Anticoagulant long-term use Xarelto.. Hx Eliquis, PE, 2019 Polymyalgia rheumatica (10/12/11) Urinary bladder incontinence (~04/2024) 04/27/24 intermittent and U/A done at [facility] Hem/Onc Buccal mass Primary hypertension Hx of adenomatous colonic polyps (~05/2019) villous adenoma History of pulmonary embolism Pulmonary embolism 2019 .. Eliquis, then Xarelto.. Diverticulosis 05/12/[address] Mariela Arizmendi, [facility] Colon polyps Abnormal colonoscopy (11/11/15) 11/11/15 Dr Brizuela, sessile serrated adenoma, repeat 3 years. mg Adenomatous colon polyp 11/11/15 Dr Brizuela, sessile serrated adenoma, repeat 3 years. mg Benign paroxysmal vertigo (10/12/11) Midline cystocele (12/10/12) pt. unsure Obstructive sleep apnea (adult) (pediatric) (01/19/13) Stopped BIPAP, 2019. severe, Dr. Greer, on auto Bi-Level bipap Obesity (12/10/12) Restless legs (01/19/13) Dr. Greer Sensorineural hearing loss, bilateral (06/03/14) Tinnitus (06/03/14) Vertigo (06/03/14) Serrated polyp of colon (11/11/15) Hyperlipemia Surgical History Status post gastrostomy tube placement, follow-up exam (~03/26/24) History of temporal artery biopsy Hx of colonoscopy History of cardiac cath Hysterectomy, Laproscopic Bilateral salpingectomy with oophorectomy (~12/2006) Family History Sister Cancer Breast cancer Father Heart disease Mother Heart disease Brother Heart disease MA Social History Smoking/Tobacco Use Status: Former Tobacco Use Quit Date: 09/02/99 Tobacco: How many years used: 20 Smoking risk assessment performed?: Yes Alcohol Intake: former Drug use: Never Substance use type: does not use Adopted: No Caregiver/Support person: No Foster care: No Housing: house Number of Children: 3 number of grandchildren: 4 Communication Needs: Hard of Hearing Education Level: high school current occupation: Retired Pets and animals: Yes Pets and animals: dog(s) Sexually active: No Do you think of yourself as: straight/heterosexual Current gender identity: female What is your relationship status?: How often do you talk on the phone with friends or family?: three or more times per week How often do you get together with friends or relatives?: once per week Do you belong to any clubs or organized social groups?: no Panel score (0-1 are the most socially isolated patients): 2 What type of physical activity do you participate in: none Dilia/Mandaen: Protestant Special dilia needs: No Seatbelt use: always Drive intox or ride w/intox transporter driver: No Do you feel safe at home: Yes Do you feel safe in your relationship?: Yes Additional Social history: Lives with of 55 years in [place]. She has 3 kids who live close. 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
[2025-01-05 12:30] VITALS: BP 153/62; PULSE 58; RESP 18; O2SAT 98
== END 2025-01-05 12:30 | disposition home or self-care (01) ==
PROVIDERS: Emergency Provider Physician Assistant; PCP Nurse Practitioner Family
DX: R51.9 Headache, unspecified (principal); M54.2 Cervicalgia
CPT/HCPCS: 99285 ×2; 36415; 70496; 70498; 80053; 83690; 85652; 87637; 85025; 86140; J3490

== ENCOUNTER → 2025-01-07 08:11 | Outpatient (BNVA) | payer MEDICARE, SELFPAY | PROVIDERS: PCP Nurse Practitioner Family; Referring Provider Nurse Practitioner Family; Visit Provider Psychiatry & Neurology Neurology | DX: M54.2 Cervicalgia (principal); H53.2 Diplopia; I63.9 Cerebral infarction, unspecified; I10 Essential (primary) hypertension; E11.9 Type 2 diabetes mellitus without complications | CPT/HCPCS: 99215 ==

== ENCOUNTER 2025-02-09 14:10 | Outpatient (REF) | payer MEDICARE, SELFPAY | END 2025-02-09 14:11 | disposition home or self-care (01) | LOC: CARDOPNVT 14:10 | PROVIDERS: PCP Nurse Practitioner Family; Visit Provider Nurse Practitioner Family | DX: H53.2 Diplopia (principal); I73.9 Peripheral vascular disease, unspecified; E78.00 Pure hypercholesterolemia, unspecified; I10 Essential (primary) hypertension | CPT/HCPCS: 93246 ==

== ENCOUNTER 2025-02-15 00:38 | Outpatient (CLI) | payer MEDICARE, SELFPAY ==
[2025-02-15 07:21] LABS: Abs Immature Grans 0.08 10^3/uL (0.0-0.06); Absolute Basophil Count 0.04 10^3/uL (0.0-0.2); Absolute Lymphocyte Count 1.12 10^3/uL (1.2-3.4); Absolute Monocyte Count 0.84 10^3/uL (0.1-0.8); Absolute Neutrophil Count 4.35 10^3/uL (1.2-6.7); Basophils % 0.6 %; HCT 40.3 % (36.0-46.0); HGB 13.3 g/dL (11.2-15.7); Immature Grans % 1.2 %; Lymphocytes % 17.4 %; MCH 30.9 pg (27.0-33.0); MCV 94 fL (80-95); Monocytes % 13.1 %; Neutrophils % 67.7 %; Platelet Count 186 10^3/uL (130-400); RBC 4.31 10^6/uL (3.93-5.22); RDW 13.4 % (11.7-14.6); RDW-SD 45.8 fL; WBC 6.43 10^3/uL (4.4-10.8)
[2025-02-15 07:36] LABS: ALT 19 U/L (14-59); AST 12 U/L (15-37); Albumin 3.5 g/dL (3.4-5.0); Alkaline Phosphatase 48 U/L (46-116); Anion Gap 9.9 mmol/L (3-11); BUN 28 mg/dL (7-18); Bilirubin, Total 0.6 mg/dL (0.2-1.0); CO2 27.1 mmol/L (21.0-32.0); Calcium 9.7 mg/dL (8.5-10.1); Chloride 105 mmol/L (98-107); Estimated GFR 58.75 (mL/min/1.73m2); Glucose 70 mg/dL (74-106); Potassium 3.2 mmol/L (3.5-5.1); Sodium 142 mmol/L (136-145); TSH 1.23 uIU/mL (0.36-3.74)
== END 2025-02-15 00:39 | disposition home or self-care (01) ==
LOC: LBO 00:38
PROVIDERS: PCP Nurse Practitioner Family; Visit Provider Internal Medicine Hematology
DX: E44.1 Mild protein-calorie malnutrition (principal); C06.9 Malignant neoplasm of mouth, unspecified
CPT/HCPCS: 36415; 80053; 84439; 84443; 85025

== ENCOUNTER 2025-03-09 08:00 | Outpatient (CLI) | payer MEDICARE, SELFPAY ==
--- NOTE | 2025-03-09 09:20 | W.CARDEVENT ---
Date of service: 03/09/25 Time of Service: 09:20 Cardiac Event Recorder Referring Provider:: Eli Polanco Indications:: Palpitations Cardiac Event Note: This is a cardiac event monitor. Patient was monitored for 12 days and 6 hours Rhythm throughout was sinus with an average heart rate of 60. Minimum was 42, maximum 116. There were very rare isolated ventricular ectopic beats. There were rare atrial premature beats. A total of 3 self-limited atrial runs occurred. There was no atrial fibrillation, no high-grade AV block, no pauses greater than 3 seconds. No symptoms were reported
== END 2025-03-09 08:01 | disposition home or self-care (01) ==
LOC: CARDOPNVT 08:00
PROVIDERS: PCP Nurse Practitioner Family; Visit Provider Internal Medicine Cardiovascular Disease
DX: R00.2 Palpitations (principal); I49.1 Atrial premature depolarization
CPT/HCPCS: 93248

== ENCOUNTER 2025-04-02 13:03 | Outpatient (CLI) | payer MEDICARE, SELFPAY ==
[2025-04-02 13:08] LABS: Glucose 119 mg/dL (74-106); Potassium 4.1 mmol/L (3.5-5.1)
== END 2025-04-02 13:04 | disposition home or self-care (01) ==
LOC: LBO 13:06
PROVIDERS: PCP Nurse Practitioner Family; Visit Provider Nurse Practitioner Family
DX: R89.9 Unspecified abnormal finding in specimens from other organs, systems and tissues (principal); R73.03 Prediabetes
CPT/HCPCS: 36415; 82947; 84132

== ENCOUNTER 2025-04-04 09:05 | Emergency (ER) | payer MEDICARE, SELFPAY ==
[2025-04-04] VITALS (11 sets, daily range): BP systolic 138–153; BP diastolic 49–71; PULSE 52–70; RESP 13–20; TEMP 36.4; O2SAT 96–99
--- NOTE | 2025-04-04 09:00 | RT.EKG_ITS ---
APPROVED REPORT Exam: Resting ECG Reason for Exam: NEAR SYNCOPE Patient Location: E HR:57 bpm ECG Measurements Heart Rate 57 AXIS DE 202 P 84 QRSd 90 QRS 19 QT 383 T -83 QTc 374 Conclusion Sinus bradycardia...rate< 60 Low voltage, precordial leads...precordial leads <1.0mV Simus bradycardia with T wave abnormality. No change from prior 05/21/24. WD
--- NOTE | 2025-04-04 09:15 | DI.CT_ITS ---
Exam(s) CT HEAD CERVICAL SPINE WO EXAM: CT HEAD CERVICAL SPINE WO CLINICAL HISTORY: fall, [place]. TECHNIQUE: Imaging Protocol: Axial computed tomography images with coronal and sagittal reformatted images were created and reviewed COMPARISON: CT CT BRAIN NECK CTA from 01/05/2025 FINDINGS: BRAIN: There are no skull fractures nor fluid in the visualized paranasal sinuses. There is no evidence of intracranial hemorrhage, mass effect, or shift of midline structures. The ventricles are not enlarged or shifted and there is no blood within the ventricular system nor within the basal cisterns. There is relatively symmetrical periventricular hypodensity consistent with chronic small vessel disease again noted small lacunar infarcts are again noted in both cerebellar hemispheres. There is slightly exaggerated CSF space over the frontal convexities, more so on the right side. No evidence of acute extra-axial blood. Probably related to atrophy or possible remote subdural hematoma at this level. CERVICAL SPINE: There is no evidence of fracture nor acute listhesis. No significant prevertebral soft tissue swelling. There is disc space narrowing at mid-lower levels in the cervical spine and tiny bilateral Luschka joint osteophytes at these levels. There is also multilevel facet arthropathy, most prominent on the right side at C3-4 and C4-5 levels. There is no significant facet joint malalignment. No significant osseous lesions evident. IMPRESSION: No acute intracranial findings on this noninfused CT scan of the brain.Chronic small-vessel white matter ischemic changes again noted. No acute infarcts evident. No evidence of cervical spine fracture, malalignment, nor acute compromise of the cervical spinal canal. Chronic degenerative changes RADIATION DOSE DELIVERED: 1,188.12mGy.cm Total DLP DATA REPOSITORY: All CT scans at this facility are submitted to the National Radiology Data Registry (NRDR) Dose Index Registry (DIR) with the [employer] (ACR). RADIATION OPTIMIZATION: All CT scans at this facility use at least one of these dose optimization techniques: automated exposure control; mA and/or kV adjustment per patient size (includes targeted exams where dose is matched to clinical indication); or iterative reconstruction.
--- NOTE | 2025-04-04 09:15 | DI.RAD_ITS ---
Exam(s) XR HAND RT COMPLETE EXAM: XR HAND RT COMPLETE CLINICAL HISTORY: right hand pain post fall. TECHNIQUE: 2D digital imaging was performed. COMPARISON: No exams were available for comparison FINDINGS: 3 views No evidence of acute fracture nor dislocation in the hand. There are degenerative changes in the DIP joints, most prominent at the DIP joint of the 2nd-index finger. Also DIP joint of the 3rd-middle finger, but somewhat less so. The metacarpophalangeal joints appear unremarkable. First carpometacarpal joint appears unremarkable. There is no radiopaque foreign body. No gas in soft tissues. IMPRESSION: No acute osseous findings in the hand. Degenerative DIP joint changes which are most evident in the 2nd-index finger. DATA REPOSITORY: RADIATION DOSE DELIVERED:
--- NOTE | 2025-04-04 09:15 | DI.RAD_ITS ---
Exam(s) XR WRIST RT COMPLETE EXAM: XR WRIST RT COMPLETE CLINICAL HISTORY: right hand pain post fall. TECHNIQUE: 2D digital imaging was performed. COMPARISON: No exams were available for comparison FINDINGS: 3 views No evidence of acute fracture nor carpal dislocation nor significant ulnar variance. Scaphoid and scapholunate distance are normal. No osseous lesions IMPRESSION: No acute osseous findings in the wrist. DATA REPOSITORY: RADIATION DOSE DELIVERED:
--- NOTE | 2025-04-04 09:15 | DI.CT_ITS ---
Exam(s) CT CHEST/ABD/PEL W EXAM: CT CHEST/ABD/PEL W CLINICAL HISTORY: fall, right rib pain on xarelto. TECHNIQUE: Imaging Protocol: Axial computed tomography images with coronal and sagittal reformatted images were created and reviewed CONTRAST MATERIAL: Intravenous: Omnipaque 350 Contrast volume:100 ml Oral: None COMPARISON: CT CT CHEST PE ABD PELVIS W from 04/08/[address] CHEST PE CTA from 01/26/[address] CHEST WO from 05/21/2024 FINDINGS: CHEST: LUNGS: No evidence of lung contusion or pleural effusion or pneumothorax. No incidental infiltrates. However, there is a small nodule evident in the superior aspect of the right lower lobe measuring 3 mm, unchanged from 05/21/2024 . MEDIASTINUM: There is no evidence of sternal fracture or mediastinal hematoma. Visualized thyroid unremarkable. CARDIAC: Heart size is normal. There is no pericardial effusion.Caliber of the ascending thoracic aorta is within normal limits.. No aneurysm. No dissection. OSSEOUS: No fractures evident. No significant osseous lesions.Multilevel chronic disc space narrowing in the lumbar spine. No listhesis.. ABDOMEN: There is no ascites and there is no evidence of mesenteric nor bowel wall hematoma. LIVER: Intact. No lacerations. No lesions. No dilated intrahepatic ducts evident. GALLBLADDER/BILIARY: No obvious gallbladder pathology. CBD is not dilated. PANCREAS: No evidence of pancreatic mass nor dilatation of the pancreatic duct. SPLEEN: Intact. No lacerations. Normal size. No lesions. Splenic and portal veins are patent. ADRENALS: No evidence of adrenal masses nor adrenal hemorrhage. KIDNEYS: No kidney lacerations nor subcapsular hematomas.. No cysts nor solid renal masses. No calculi. No hydronephrosis nor hydroureter. ABDOMINAL AORTA: The abdominal aorta is peripherally calcified but not enlarged. Common iliac arteries are also peripherally calcified but not enlarged LYMPH NODES: There is no retroperitoneal nor paraaortic adenopathy. ABDOMINAL WALL: No evidence of significant anterior abdominal wall nor inguinal hernia. GI: There is no evidence of bowel obstruction. PELVIS: LYMPH NODES: There is no intrapelvic nor inguinal adenopathy. GI: No evidence of appendicitis.No evidence of sigmoid diverticulitis. URINARY BLADDER: Collapsed and therefore difficult to assess accurately. There are no radiopaque calculi in the urinary bladder lumen. The pelvic ureters are not dilated. REPRODUCTIVE: The uterus is surgically absent. There are no abnormal adnexal masses. No free fluid in the pelvis. OSSEOUS:No evidence of pelvic nor hip fractures. Moderate degenerative changes in the right hip. Mild degenerative changes left hip. SI joints appear unremarkable. No significant osseous lesions. IMPRESSION: 1. No evidence of significant trauma sequelae in the chest, abdomen, and pelvis. 2. No other significant incidental findings Preliminary virtual Radiology report was reviewed RADIATION DOSE DELIVERED: 443.09mGy.cm Total DLP DATA REPOSITORY: All CT scans at this facility are submitted to the National Radiology Data Registry (NRDR) Dose Index Registry (DIR) with the [employer] (ACR). RADIATION OPTIMIZATION: All CT scans at this facility use at least one of these dose optimization techniques: automated exposure control; mA and/or kV adjustment per patient size (includes targeted exams where dose is matched to clinical indication); or iterative reconstruction.
[2025-04-04 09:41] LABS: Abs Immature Grans 0.15 10^3/uL (0.0-0.06); HCT 39.7 % (36.0-46.0); HGB 12.9 g/dL (11.2-15.7); Immature Grans % 2.1 %; MCH 30.1 pg (27.0-33.0); MCHC 32.5 % (32.0-36.0); MCV 93 fL (80-95); MPV 10.6 fL (8.0-11.0); Platelet Count 165 10^3/uL (130-400); RBC 4.29 10^6/uL (3.93-5.22); RDW 13.4 % (11.7-14.6); RDW-SD 45.5 fL; WBC 7.05 10^3/uL (4.4-10.8)
[2025-04-04] MEDS: fentaNYL 100 MCG/2 ML VIAL 25 MCG IVP (09:42)
[2025-04-04 09:56] LABS: ALT 21 U/L (14-59); AST 13 U/L (15-37); Albumin 3.4 g/dL (3.4-5.0); Alkaline Phosphatase 58 U/L (46-116); Anion Gap 9.2 mmol/L (3-11); BUN 27 mg/dL (7-18); Bilirubin, Total 0.5 mg/dL (0.2-1.0); CO2 27.8 mmol/L (21.0-32.0); Calcium 9.4 mg/dL (8.5-10.1); Chloride 104 mmol/L (98-107); Estimated GFR 58.75 (mL/min/1.73m2); Glucose 94 mg/dL (74-106); Magnesium 1.9 mg/dL (1.8-2.4); Potassium 3.6 mmol/L (3.5-5.1); Sodium 141 mmol/L (136-145); Total Protein 6.9 g/dL (6.4-8.2); Troponin I 16 ng/L (<or=51)
[2025-04-04] MEDS: Normal Saline - Diluent 50 ML VIAL IJ (10:13)
[2025-04-04] MEDS: Omnipaque 350 MG/ML 100 ML BTL IJ (10:15)
--- NOTE | 2025-04-04 10:39 | DI.VRAD_ITS ---
PROCEDURE INFORMATION: Exam: CT Head Without Contrast Exam date and time: 04/04/2025 10:00 AM Age: 74 years old Clinical indication: Injury or trauma; Fall; Blunt trauma (contusions or hematomas) TECHNIQUE: Imaging protocol: Computed tomography of the head without contrast. COMPARISON: CT BRAIN NECK CTA 01/05/2025 10:27 AM FINDINGS: Brain: No acute intracranial hemorrhage.. Stable prominent subdural space in the frontal lobes was present in 2023 and is consistent with chronic subdural hematomas or frontal atrophy. There is mild diffuse heterogeneity of the white matter attenuation, consistent with chronic white matter ischemic changes. Mild cerebral atrophy Cerebral ventricles: No ventriculomegaly. Paranasal sinuses: Mucoperiosteal thickening in the left maxillary sinus Mastoid air cells: Visualized mastoid air cells are well aerated. Bones: Unremarkable. No acute fracture. Soft tissues: Unremarkable. IMPRESSION: 1. No acute intracranial hemorrhage.. 2. Stable prominent subdural space in the frontal lobes was present in 2023 and is consistent with chronic subdural hematomas or frontal atrophy. PROCEDURE INFORMATION: Exam: CT Cervical Spine Without Contrast Exam date and time: 04/04/2025 10:00 AM Age: 74 years old Clinical indication: Injury or trauma; Fall; Blunt trauma (contusions or hematomas) TECHNIQUE: Imaging protocol: Computed tomography of the cervical spine without contrast. COMPARISON: CT HEAD CERV SPINE FACIAL WO 05/21/2024 7:45 PM FINDINGS: Bones: No acute fracture of the cervical spine. No subluxation or dislocation of the cervical spine. Mild Kyphosis of the cervical spine with the apex at C4. Intervertebral disc space narrowing C4 through C7 may represent degenerative disc disease.. Anterior osteophyte formation C3 through C7. Posterior osteophyte formation C4 through C7. Degenerative changes in the facets at multiple levels. Degenerative changes at C1/C2 Lungs: Pleural plaque in the posterior aspect of the right apex. 17 by 4 mm. Maybe secondary to asbestos Thyroid: The thyroid is unremarkable Soft tissues: Unremarkable. IMPRESSION: 1. No acute fracture of the cervical spine. 2. No subluxation or dislocation of the cervical spine. 3. Intervertebral disc space narrowing C4 through C7 may represent degenerative disc disease.. Dictated and Authenticated by: Marko Crystal MD. Orderin Veronica Curiel MD
--- NOTE | 2025-04-04 10:45 | DI.VRAD_ITS ---
PROCEDURE INFORMATION: Exam: CT Chest With Contrast; Diagnostic Exam date and time: 04/04/2025 10:04 AM Age: 74 years old Clinical indication: Injury or trauma; Ruq; Blunt trauma (contusions or hematomas) and other: Fall, right rib pain on xarelto TECHNIQUE: Imaging protocol: Diagnostic computed tomography of the chest with contrast. 3D rendering (Not supervised by radiologist): MIP and/or 3D reconstructed images were created by the technologist. Contrast material: OMNIPAQUE 350; Contrast volume: 75 ml; Contrast route: INTRAVENOUS (IV); COMPARISON: CT CHEST WO 05/21/2024 7:51 PM FINDINGS: Lungs: Mild panlobular emphysematous changes. Atelectasis in the lingula and left lower lobe Pleural spaces: Unremarkable. No pneumothorax. No pleural effusion. Heart: Unremarkable. No cardiomegaly. No pericardial effusion. Lymph nodes: Unremarkable. No enlarged lymph nodes. Vasculature: No evidence of pulmonary embolus to the segmental level. No aneurysm of the aorta. No dissection of the aorta. Bones/joints: Unremarkable. No acute fracture. Soft tissues: Unremarkable. IMPRESSION: 1. No evidence of pulmonary embolus to the segmental level. 2. No aneurysm of the aorta. 3. No dissection of the aorta. PROCEDURE INFORMATION: Exam: CT Abdomen And Pelvis With Contrast Exam date and time: 04/04/2025 10:04 AM Age: 74 years old Clinical indication: Injury or trauma; Ruq; Blunt trauma (contusions or hematomas) and other: Fall, right rib pain on xarelto TECHNIQUE: Imaging protocol: Computed tomography of the abdomen and pelvis with contrast. 3D rendering (Not supervised by radiologist): MIP and/or 3D reconstructed images were created by the technologist. Contrast material: OMNIPAQUE 350; Contrast volume: 75 ml; Contrast route: INTRAVENOUS (IV); COMPARISON: No relevant prior studies available. FINDINGS: Liver: Normal. No mass. Gallbladder and biliary ducts: Normal. No calcified stones. No ductal dilation. Pancreas: Normal. No ductal dilation. Spleen: Normal. No splenomegaly. Adrenal glands: Normal. No mass. Kidneys and ureters: There is no evidence of renal or ureteral calcifications. Stomach and bowel: Diverticulosis of the rectosigmoid. No diverticulitis Appendix: Normal appendix Intraperitoneal space: Unremarkable. No free air. No significant fluid collection. Vasculature: Stenosis at the origin of the SMA. Stenosis at the origin of the celiac artery Lymph nodes: Unremarkable. No enlarged lymph nodes. Urinary bladder: Unremarkable as visualized. Reproductive: Unremarkable as visualized. Bones/joints: Unremarkable. No acute fracture. Soft tissues: Umbilical hernia contains fat IMPRESSION: No acute findings. Dictated and Authenticated by: Marko Crystal MD. Orderin Veronica Curiel MD
--- NOTE | 2025-04-04 10:48 | DI.VRAD_ITS ---
PROCEDURE INFORMATION: Exam: XR Right Hand Exam date and time: 04/04/2025 10:20 AM Age: 74 years old Clinical indication: Injury or trauma; Blunt trauma (contusions or hematomas); Hand; Injury date: Fall, right rib pain on xarelto TECHNIQUE: Imaging protocol: Radiologic exam of the right hand. Views: 3 or more views. COMPARISON: US EXTREMITY VENOUS BI 04/08/2020 2:41 PM FINDINGS: Bones/joints: There is joint space narrowing in the DIP joints and PIP joints of the fingers and IP joint of the thumb consistent with degenerative changes. Erosions in the D IP joint of the index finger may reflect erosive arthritis. Degenerative changes in the thumb carpometacarpal joint and thumb metacarpophalangeal joint and radiocarpal joint There is no evidence of acute fracture.There is no evidence of malalignment or dislocation. Soft tissues: Normal. IMPRESSION: 1. There is joint space narrowing in the DIP joints and PIP joints of the fingers and IP joint of the thumb consistent with degenerative changes. 2. Erosions in the D IP joint of the index finger may reflect erosive arthritis. 3. Degenerative changes in the thumb carpometacarpal joint and thumb metacarpophalangeal joint and radiocarpal joint . 4. There is no evidence of acute fracture.There is no evidence of malalignment or dislocation. Dictated and Authenticated by: Marko Crystal MD. Orderin Veronica Curiel MD
--- NOTE | 2025-04-04 10:49 | DI.VRAD_ITS ---
PROCEDURE INFORMATION: Exam: XR Right Wrist Exam date and time: 04/04/2025 10:21 AM Age: 74 years old Clinical indication: Injury or trauma; Fall; Blunt trauma (contusions or hematomas); Wrist; Right TECHNIQUE: Imaging protocol: Radiologic exam of the right wrist. Views: 3 or more views. COMPARISON: CR XR HAND RT COMPLETE 04/04/2025 10:20 AM FINDINGS: Bones/joints: Degenerative changes in the carpal bones and radiocarpal joint and thumb carpometacarpal joint. There is no evidence of acute fracture.There is no evidence of malalignment or dislocation. Soft tissues: Normal. IMPRESSION: 1. Degenerative changes in the carpal bones and radiocarpal joint and thumb carpometacarpal joint. 2. There is no evidence of acute fracture.There is no evidence of malalignment or dislocation. Dictated and Authenticated by: Marko Crystal MD. Orderin Veronica Curiel MD
[2025-04-04] MEDS: Lidocaine 5% Patch 1 PATCH (11:05)
--- NOTE | 2025-04-04 12:41 | W.ED.GENAD ---
Discharge Plan Disposition Patient Disposition: Home Condition: Stable Discharge Details Clinical Impression: Muscle strain of right wrist, Contusion of rib, Head injury, Laceration of face Primary Care Provider: Eli Polanco ED Provider: Veena Martin Home Meds and New Rx's Prescriptions: Continued Xarelto 10 mg tablet 10 mg PO DAILY Qty: 90 1RF gabapentin 300 mg capsule 300 mg PO QHS Qty: 90 3RF magnesium oxide 200 mg magnesium tablet 200 mg PO BID Qty: 60 3RF neomycin-polymyxin B-dexameth 3.5 mg/g-10,000 unit/g-0.1 % ointment 1 applic ophthalmic (eye) BID Rx Instructions: Left eye potassium chloride 10 mEq capsule, extended release 10 meq PO DAILY Qty: 90 3RF losartan 50 mg tablet 50 mg PO DAILY Patient Comments: [facility] Vascular note 04/18/23 Dr. Monreal.HE chlorhexidine gluconate [Paroex Oral Rinse] 0.12 % mouthwash 15 ml mucous membrane BID Qty: 300 0RF Rx Instructions: Trial mouth cleaning rinse x1 week; STOP if it stings albuterol sulfate 90 mcg/actuation HFA aerosol inhaler 1 puff INHALATION Q6H PRN PRN (Reason: shortness of breath or wheezing) Qty: 6.7 1RF Rx Instructions: as best dispensed per insurance budesonide 0.25 mg/2 mL suspension for nebulization 0.25 mg inhalation BID Qty: 60 6RF budesonide-formoterol [Symbicort] 160-4.5 mcg/actuation HFA aerosol inhaler 2 puff inhalation BID Qty: 10.2 6RF diclofenac sodium 3 % gel 1 applic topical BID Qty: 100 0RF acetaminophen [Tylenol] 325 MG tablet 650 mg PO Q6H PRN PRN ipratropium-albuterol 0.5 mg-3 mg(2.5 mg base)/3 mL solution for nebulization 3 ml inhalation Q6H PRN (Reason: shortness of breath or wheezing) Qty: 180 1RF amlodipine 5 mg tablet 10 mg PO DAILY Qty: 180 3RF cyanocobalamin (vitamin B-12) 1,000 mcg tablet See Rx Instructions .ROUTE .COMPLEX Qty: 90 3RF Dose Instruction: TAKE ONE TABLET BY MOUTH EVERY DAY Rx Instructions: TAKE ONE TABLET BY MOUTH EVERY DAY citalopram 40 mg tablet 40 mg PO DAILY Qty: 90 3RF hydroxyzine HCl 25 mg tablet 25 mg PO BID PRN (Reason: Worry, Anxiety, Nausea) Qty: 30 2RF Rx Instructions: Trial for anxiety cholecalciferol (vitamin D3) 50 mcg (2,000 unit) capsule See Rx Instructions .ROUTE .COMPLEX Qty: 90 3RF Dose Instruction: TAKE ONE CAPSULE BY MOUTH EVERY DAY Rx Instructions: TAKE ONE CAPSULE BY MOUTH EVERY DAY atorvastatin 40 mg tablet See Rx Instructions .ROUTE .COMPLEX Qty: 90 2RF Dose Instruction: Take 1 tablet by mouth every day Rx Instructions: Take 1 tablet by mouth every day prednisone 5 mg tablet See Rx Instructions .ROUTE .COMPLEX Qty: 90 1RF Dose Instruction: TAKE ONE TABLET BY MOUTH EVERY DAY Rx Instructions: TAKE ONE TABLET BY MOUTH EVERY DAY pantoprazole 40 mg tablet,delayed release (DR/EC) See Rx Instructions .ROUTE .COMPLEX Qty: 90 2RF Dose Instruction: Take 1 tablet by mouth every day Rx Instructions: Take 1 tablet by mouth every day Discharge Instructions Instructions: Muscle Strain (DC), Bruised Rib Additional Instructions: Take Tylenol as needed for pain Lidocaine patches you may keep the patch reapplied on for 12 hours and then you must remove it for 12 hours You may reapply another patch tomorrow, you can purchase these [id number] Make sure you are taking at least 12 full inhalations in accelerations daily to prevent pneumonia You may wear your wrist splint as needed for pain Please return should you develop shortness of breath, fever, worsening pain Keep the wound on your face clean and dry Referrals: Eli Polanco APRN [Primary Care Provider, Family Practice] Discharge Data Discharge Date/Time-TO BE ENTERED AT DEPARTURE: 04/04/25 11:15 HPI General Date/Time Provider Initiated Documentation: 04/04/25 09:11. HPI Narrative: 74-year-old female on anticoagulation for atrial fibrillation, presents after a fall yesterday at 1630 hours. No loss of consciousness. Lightheaded while mopping, able to crawl and get up into a chair. Pain in right wrist and left ribs. No headache or vomiting. Cleaned head wound. Persistent pain prompted visit. Related Data Home Medications ?Medication ?Instructions ?Recorded ?Confirmed acetaminophen 325 mg tablet 650 mg PO Q6H PRN PRN 11/23/14 04/04/25 (Tylenol) losartan 50 mg tablet 50 mg PO DAILY 05/03/23 04/04/25 rivaroxaban 10 mg tablet (Xarelto) 10 mg PO DAILY #90 tabs 08/20/23 04/04/25 chlorhexidine gluconate 0.12 % 15 ml mucous membrane BID #300 mL 01/09/24 04/04/25 mouthwash (Paroex Oral Rinse) albuterol sulfate 90 mcg/actuation 1 puff inhalation Q6H PRN PRN 01/14/24 04/04/25 aerosol inhaler shortness of breath or wheezing #6.7 grams budesonide 0.25 mg/2 mL suspension 0.25 mg (2 mL) inhalation BID #60 01/14/24 04/04/25 for nebulization mL budesonide-formoterol HFA 160 2 puff inhalation BID #10.2 grams 01/14/24 04/04/25 mcg-4.5 mcg/actuation aerosol inhaler (Symbicort) ipratropium 0.5 mg-albuterol 3 mg 3 ml inhalation Q6H PRN shortness 01/14/24 04/04/25 (2.5 mg base)/3 mL nebulization of breath or wheezing #180 mL soln amlodipine 5 mg tablet 10 mg (2 x 5 mg) PO DAILY #180 tabs 05/13/24 04/04/25 cyanocobalamin (vitamin B-12) See Rx Instructions .Route 10/09/24 04/04/25 1,000 mcg tablet .COMPLEX #90 tabs citalopram 40 mg tablet 40 mg PO DAILY #90 tabs 11/05/24 04/04/25 hydroxyzine HCl 25 mg tablet 25 mg PO BID PRN Worry, Anxiety, 11/24/24 04/04/25 Nausea #30 tabs cholecalciferol (vitamin D3) 50 See Rx Instructions .Route 12/04/24 04/04/25 mcg (2,000 unit) capsule .COMPLEX #90 caps diclofenac sodium 3 % topical gel 1 applic topical BID neck/shoulder 01/01/25 04/04/25 pain #100 grams gabapentin 300 mg capsule 300 mg PO QHS #90 caps 01/07/25 04/04/25 magnesium oxide 200 mg PO BID #60 tabs 02/02/25 04/04/25 atorvastatin 40 mg tablet See Rx Instructions .Route 02/09/25 04/04/25 .COMPLEX #90 tabs prednisone 5 mg tablet See Rx Instructions .Route 02/16/25 04/02/25 .COMPLEX #90 tabs pantoprazole 40 mg tablet,delayed See Rx Instructions .Route 03/08/25 04/04/25 release .COMPLEX #90 tabs neomycin 3.5 mg/g-polymyxin B 1 applic ophthalmic (eye) BID 04/02/25 04/04/25 10,000 unit/g-dexameth 0.1 % eye oint potassium chloride 10 mEq 10 meq PO DAILY #90 caps 04/02/25 04/04/25 capsule,extended release Previous Rx's ?Medication ?Instructions ?Recorded rivaroxaban 10 mg tablet (Xarelto) 10 mg PO DAILY #90 tabs 08/20/23 chlorhexidine gluconate 0.12 % 15 ml mucous membrane BID #300 mL 01/09/24 mouthwash (Paroex Oral Rinse) albuterol sulfate 90 mcg/actuation 1 puff inhalation Q6H PRN PRN 01/14/24 aerosol inhaler shortness of breath or wheezing #6.7 grams budesonide 0.25 mg/2 mL suspension 0.25 mg (2 mL) inhalation BID #60 01/14/24 for nebulization mL budesonide-formoterol HFA 160 2 puff inhalation BID #10.2 grams 01/14/24 mcg-4.5 mcg/actuation aerosol inhaler (Symbicort) ipratropium 0.5 mg-albuterol 3 mg 3 ml inhalation Q6H PRN shortness 01/14/24 (2.5 mg base)/3 mL nebulization of breath or wheezing #180 mL soln amlodipine 5 mg tablet 10 mg (2 x 5 mg) PO DAILY #180 tabs 05/13/24 cyanocobalamin (vitamin B-12) See Rx Instructions .Route 10/09/24 1,000 mcg tablet .COMPLEX #90 tabs citalopram 40 mg tablet 40 mg PO DAILY #90 tabs 11/05/24 hydroxyzine HCl 25 mg tablet 25 mg PO BID PRN Worry, Anxiety, 11/24/24 Nausea #30 tabs cholecalciferol (vitamin D3) 50 See Rx Instructions .Route 12/04/24 mcg (2,000 unit) capsule .COMPLEX #90 caps diclofenac sodium 3 % topical gel 1 applic topical BID neck/shoulder 01/01/25 pain #100 grams gabapentin 300 mg capsule 300 mg PO QHS #90 caps 01/07/25 magnesium oxide 200 mg PO BID #60 tabs 02/02/25 atorvastatin 40 mg tablet See Rx Instructions .Route 02/09/25 .COMPLEX #90 tabs prednisone 5 mg tablet See Rx Instructions .Route 02/16/25 .COMPLEX #90 tabs pantoprazole 40 mg tablet,delayed See Rx Instructions .Route 03/08/25 release .COMPLEX #90 tabs potassium chloride 10 mEq 10 meq PO DAILY #90 caps 04/02/25 capsule,extended release Allergies Allergy/AdvReac Type Severity Reaction Status Date / Time clarithromycin Allergy Severe HIVES Verified 04/04/25 09:12 Penicillins Allergy Severe HIVES Verified 04/04/25 09:12 tetracycline Allergy Severe HIVES, Verified 04/04/25 09:12 HALLUCINATIONS eszopiclone (Eszopiclone) Allergy Unknown pt unsure Verified 04/04/25 09:12 of reaction telithromycin (Telithromycin) Allergy Unknown pt unsure Verified 04/04/25 09:12 raloxifene HCl (From Evista) AdvReac Intermediate BODY ACHES Verified 04/04/25 09:12 sulfamethoxazole (From AdvReac Intermediate HEADACHE,VO Verified 04/04/25 09:12 Bactrim) MITING trimethoprim (From Bactrim) AdvReac Intermediate HEADACHE,VO Verified 04/04/25 09:12 MITING alendronate sodium AdvReac Mild BODY ACHE Verified 04/04/25 09:12 codeine AdvReac Mild GI UPSET Verified 04/04/25 09:12 risedronate sodium (From AdvReac Mild BODY ACHES Verified 04/04/25 09:12 Actonel) Bisphosphonates AdvReac Unknown achy joints Verified 04/04/25 09:12 hydrocodone (Hydrocodone) AdvReac Unknown vomitting Verified 04/04/25 09:12 Macrolide Antibiotics AdvReac Unknown vomitting Verified 04/04/25 09:12 and hallucinations morphine AdvReac Unknown pt. felt Verified 04/04/25 09:12 like she was floating, states she thinks she got to Sulfa (Sulfonamide AdvReac Other (See Verified 04/04/25 09:12 Antibiotics) Comment) General Stated Complaint: Trauma TENA: 3 Exam Narrative Exam Narrative: General Appearance: Alert and oriented, no acute distress. Vital signs: Within normal limits. HEENT: Small abrasion above left eyebrow, no hematoma or hemotympanum. Pupils equal, round, reactive to light and accommodation. No cervical spine tenderness. Respiratory: Lungs clear bilaterally. Cardiovascular: Regular cardiac rhythm. Back, Musculoskeletal: Tenderness in left rib cage without visible trauma. Extremities: Tenderness and mild swelling in right wrist and hand. Neurovascularly intact in all extremities. Skin: Warm and dry, no rash. Neurological: Cranial nerves II-XII intact. No abdominal tenderness. Course Vital Signs Vital signs: Vital Signs Temperature 36.4 C 04/04/25 09:10 Pulse 69 04/04/25 09:10 Respiratory Rate 20 04/04/25 09:10 Blood Pressure 153/71 H 04/04/25 09:10 Pulse Oximetry 99 04/04/25 09:10 Temperature 36.4 C 04/04/25 09:10 Temperature Source Oral 04/04/25 09:10 Pulse 60 04/04/25 11:13 Pulse 52 L 04/04/25 10:50 Respiratory Rate 18 04/04/25 10:50 Blood Pressure 153/58 H 04/04/25 11:13 Blood Pressure Mean 89 04/04/25 11:13 Blood Pressure Position Sitting 04/04/25 09:10 Pulse Oximetry 96 04/04/25 11:13 Oxygen Delivery Method Room Air 04/04/25 09:10 Oxygen Flow Rate 0 04/04/25 09:10 Pain Level 5 04/04/25 11:06 Lab/Test Results Lab/Test Results: Laboratory Tests Range/Units 04/04/25 09:20 WBC (4.4-10.8) 10^3/uL 7.05 RBC (3.93-5.22) 10^6/uL 4.29 Hgb (11.2-15.7) g/dL 12.9 Hct (36.0-46.0) % 39.7 MCV (80-95) fL 93 MCH (27.0-33.0) pg 30.1 MCHC (32.0-36.0) % 32.5 RDW (11.7-14.6) % 13.4 Plt Count (130-400) 10^3/uL 165 MPV (8.0-11.0) fL 10.6 Immature Gran % % 2.1 Neutrophils % % 66.4 Lymphocytes % % 16.5 Monocytes % % 14.0 Eosinophils % % 0.0 Basophils % % 1.0 Nucleated RBC % (0.0-0.3) % 0.0 Absolute Neutrophils (1.2-6.7) 10^3/uL 4.68 Absolute Lymphocytes (1.2-3.4) 10^3/uL 1.16 L Absolute Monocytes (0.1-0.8) 10^3/uL 0.99 H Absolute Eosinophils (0.0-0.7) 10^3/uL 0.00 Absolute Basophils (0.0-0.2) 10^3/uL 0.07 Sodium (136-145) mmol/L 141 Potassium (3.5-5.1) mmol/L 3.6 Chloride (98-107) mmol/L 104 Carbon Dioxide (21.0-32.0) mmol/L 27.8 Anion Gap (3-11) mmol/L 9.2 BUN (7-18) mg/dL 27 H Creatinine (0.55-1.02) mg/dL 1.0 Est GFR (CKD-EPI 2020) (mL/min/1.73m2) 58.75 Glucose (74-106) mg/dL 94 Calcium (8.5-10.1) mg/dL 9.4 Magnesium (1.8-2.4) mg/dL 1.9 Total Bilirubin (0.2-1.0) mg/dL 0.5 AST (15-37) U/L 13 L ALT (14-59) U/L 21 Alkaline Phosphatase (46-116) U/L 58 Troponin I (<or=51) ng/L 16 Total Protein (6.4-8.2) g/dL 6.9 Albumin (3.4-5.0) g/dL 3.4 Medical Decision Making - Laboratory Studies: - Negative troponin - Imaging: - CT head and cervical spine: no acute abnormality - No intrathoracic or abdominal pathology Initial Assessment: 74-year-old female on anticoagulation for atrial fibrillation, presents after a fall with lightheadedness, right wrist pain, and left rib pain. No loss of consciousness, headache, or vomiting. ED Course: - CT head and cervical spine: no acute abnormality. - CT chest, abdomen, pelvis: no intrathoracic or abdominal pathology. - Wrist splint applied. - Pain improved with 25 mcg fentanyl. - Encouraged deep breaths to prevent pneumonia. - Discharged home with her . Final Assessment: Patient's pain managed with fentanyl, wrist splint applied, and no acute abnormalities found in imaging. Encouraged deep breaths to prevent pneumonia. Clinical Impression: - Fall - Lightheadedness - Right wrist pain - Left rib pain Disposition: - Discharge: Patient discharged home with her . - Follow-Up: Advised Tylenol and lidocaine as needed. MDM Components Evaluation: - Number of Differential Diagnoses or Management Options: Fall, lightheadedness, right wrist pain, left rib pain. - Amount and Complexity of Data Reviewed: CT head, cervical spine, chest, abdomen, pelvis. - Risk of Complication and Morbidity or Mortality: Risk of pneumonia due to rib pain, managed with deep breathing exercises. [facility] All Active Problems (Updated 04/04/25 @ 11:02 by LORENA Zamora) Laceration of face (Acute) Head injury (Acute) Contusion of rib (Acute) Muscle strain of right wrist (Acute) Abnormal laboratory test (Acute) Dry eye syndrome (Acute) Follow-up exam (Acute) Stroke (Chronic) Neck muscle strain (Acute) Double vision (Acute) Mild protein-calorie malnutrition (Acute) Serum calcium elevated (Acute) At risk for osteoporosis (Acute) Prednisone, Chemo/Radiation (2023) Loss of eyelashes (Acute) Cancer of oral cavity (Acute) [facility] code from 04.29.24 note.HE Cancer related pain (Acute) 04/08/[address] [facility] Hem/Onc note Dysphagia (Acute) 04/08/[address] 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 Pure hypercholesterolemia (Acute) Referred otalgia of left ear (Acute) Giant cell arteritis (Acute 2008) Recurrence of symptoms 10/2022 ILD (interstitial lung disease) (Acute) Facial numbness (Acute) chin, @ region resting on PFT equipment TMJ inflammation (Acute) from clenching? positioning? during PFT (~05/22/23) Lip pain (Acute) inner lip pain, into left inner cheek (apthous ulcer? thrush? referred jam/TMJ pain?) Pain in lower jaw (Acute) MEHUL treated with BiPAP (Acute) Bronchiectasis (Acute) Dyspnea on exertion (Acute) Pulmonary emphysema (Acute) Benign essential hypertension (Acute 04/10/13) Fall (Acute) Diarrhea (Acute) Prediabetes (Acute) 10/2022: 5.9 .. 09/2021: 5.7.. Bronchitis (Acute) Hearing loss, bilateral (Acute) Fatigue (Acute) feeling lazy, but chemo? rad? cancer + post fx back Discharged from [facility] 05/19: Encephalopathy and UTI - Ciprofloxacin, magnesium Seen at [facility] ED 05/21: Fall, rib contusion, fracture right great toe - Can wear postop shoe and tape toe to next toe-- Pt reports she is getting better everyday and goes to the cancer center daily for treatment-- Macrocytosis (Acute) Hypokalemia (Acute) PAD (peripheral artery disease) (Chronic) focal rt common iliac artery stenosis per CARD notes, ID in 2019 Peripheral vascular disease (Chronic) Orthostasis (Acute) Temporal arteritis (Acute) Depressive disorder, not elsewhere classified (Acute 10/12/11) Esophageal reflux (Acute 12/10/12) EGD 05/25/13 KD: mild antritis and distal esophagitis; int metaplasia, no dysplasia Allergic rhinitis, unspecified (Acute 12/10/12) Leukoplakia of oral cavity (Acute) Anxiety and depression (Chronic) GERD (gastroesophageal reflux disease) (Chronic) Medical History Acute UTI VTE (venous thromboembolism) 04/08/[address] [facility] Hem/Onc note Primary osteoarthritis of right hip Periodic limb movement disorder Primary osteoarthritis of left knee (~07/2023) Rheumatology Trigeminal neuralgia of left side of face questionable -- was this the oral cancer? Other pulmonary embolism without acute cor pulmonale (Unknown) Massive PE, Apr 08, 2022 per pt report .. [facility] note 04/16/23.HE Former smoker quit 23 yrs ago! Neoplasm of unspecified behavior of bone, soft tissue, and skin Lumbago (12/10/12) Osteoarthritis DJD (degenerative joint disease) Anticoagulant long-term use Xarelto.. Hx Eliquis, PE, 2019 Polymyalgia rheumatica (10/12/11) Urinary bladder incontinence (~04/2024) 04/27/24 intermittent and U/A done at [facility] Hem/Onc Buccal mass Primary hypertension Hx of adenomatous colonic polyps (~05/2019) villous adenoma History of pulmonary embolism Pulmonary embolism 2019 .. Eliquis, then Xarelto.. Diverticulosis 05/12/[address] Mariela Arizmendi, [facility] Colon polyps Abnormal colonoscopy (11/11/15) 11/11/15 Dr Brizuela, sessile serrated adenoma, repeat 3 years. mg Adenomatous colon polyp 11/11/15 Dr Brizuela, sessile serrated adenoma, repeat 3 years. mg Benign paroxysmal vertigo (10/12/11) Midline cystocele (12/10/12) pt. unsure Obstructive sleep apnea (adult) (pediatric) (01/19/13) Stopped BIPAP, 2019. severe, Dr. Greer, on auto Bi-Level bipap Obesity (12/10/12) Restless legs (01/19/13) Dr. Greer Sensorineural hearing loss, bilateral (06/03/14) Tinnitus (06/03/14) Vertigo (06/03/14) Serrated polyp of colon (11/11/15) Hyperlipemia Surgical History Status post gastrostomy tube placement, follow-up exam (~03/26/24) History of temporal artery biopsy Hx of colonoscopy History of cardiac cath Hysterectomy, Laproscopic Bilateral salpingectomy with oophorectomy (~12/2006) Family History Sister Cancer Breast cancer Father Heart disease Mother Heart disease Brother Heart disease [place] Social History Smoking/Tobacco Use Status: Former Tobacco Use Quit Date: 09/02/99 Tobacco: How many years used: 20 Smoking risk assessment performed?: Yes Alcohol Intake: former Drug use: Never Substance use type: does not use Adopted: No Caregiver/Support person: No Foster care: No Housing: house Number of Children: 3 number of grandchildren: 4 Communication Needs: Hard of Hearing Education Level: high school current occupation: Retired Pets and animals: Yes Pets and animals: dog(s) Sexually active: No Do you think of yourself as: straight/heterosexual Current gender identity: female What is your relationship status?: How often do you talk on the phone with friends or family?: three or more times per week How often do you get together with friends or relatives?: once per week Do you belong to any clubs or organized social groups?: no Panel score (0-1 are the most socially isolated patients): 2 What type of physical activity do you participate in: none Dilia/Zoroastrianism: Sikhism Special dilia needs: No Seatbelt use: always Drive intox or ride w/intox scoop driver: No Do you feel safe at home: Yes Do you feel safe in your relationship?: Yes Additional Social history: Lives with of 55 years in [place]. She has 3 kids who live close. 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
== END 2025-04-04 11:15 | disposition home or self-care (01) ==
PROVIDERS: Emergency Provider Physician Assistant; PCP Nurse Practitioner Family
DX: R42 Dizziness and giddiness (principal); S66.911A Strain of unspecified muscle, fascia and tendon at wrist and hand level, right hand, initial encounter; S20.212A Contusion of left front wall of thorax, initial encounter; S09.8XXA Other specified injuries of head, initial encounter; S00.212A Abrasion of left eyelid and periocular area, initial encounter; I10 Essential (primary) hypertension; E78.5 Hyperlipidemia, unspecified; I48.91 Unspecified atrial fibrillation; Z79.01 Long term (current) use of anticoagulants; Z86.73 Personal history of transient ischemic attack (TIA), and cerebral infarction without residual deficits; Z87.891 Personal history of nicotine dependence; W18.39XA Other fall on same level, initial encounter
CPT/HCPCS: 36415; 74177; 80053; 93005; 96374; 99285; 70450; 71260; 72125; 73110; 73130; 83735; 84484; 85025; 93010; J3010; J3490

== ENCOUNTER 2025-04-16 15:58 | Observation (INO) | payer MEDICARE, SELFPAY ==
[2025-04-16] VITALS (49 sets, daily range): BP systolic 80–165; BP diastolic 52–96; PULSE 54–74; RESP 9–42; TEMP 36.6–36.8; O2SAT 96–100
--- NOTE | 2025-04-16 16:00 | RT.EKG_ITS ---
APPROVED REPORT Exam: Resting ECG Reason for Exam: possible stroke Patient Location: E HR:60 bpm ECG Measurements Heart Rate 60 AXIS IA 181 P -77 QRSd 91 QRS 32 QT 404 T -33 QTc 404 Conclusion Sinus rhythm, rate 60 No interval abnormalities Q wave lead III, unchanged from priors No STEMI
--- NOTE | 2025-04-16 16:15 | DI.CT_ITS ---
Exam(s) CT BRAIN NECK CTA EXAM: CT BRAIN NECK CTA CLINICAL HISTORY: R. sided weakness, LWK 8am yesterday. TECHNIQUE: Imaging Protocol: Axial CT angiography was performed with multi- slice acquisition and multi-planar and/or 3D reconstructions. CONTRAST MATERIAL: Intravenous: Omnipaque 350 contrast volume:70 mL COMPARISON: CT CT HEAD CERV SPINE FACIAL WO from 05/21/[address] BRAIN NECK CTA from 01/05/[address] HEAD CERVICAL SPINE WO from 04/04/2025 FINDINGS: CT Head W/O and W: Ventricles and Extra axial spaces: Normal in size and morphology for the patient's age. Hemorrhage: None. Cerebral parenchyma: There is an old lacunar infarct in the left cerebellum. There are areas of decreased attenuation in the white matter consistent with chronic microvascular ischemic disease. No acute mass effect is seen at this time. There is an old lacunar infarct in the right thalamus. Midline shift: None. Brainstem/Cerebellum: Normal. Calvarium: Normal. Visualized Paranasal sinuses/Mastoids: Clear. Soft Tissues: Unremarkable. Enhancement: Unremarkable. CTA Neck W: Common Carotid: Right: No dissection, occlusion or significant stenosis. Atherosclerotic calcification is seen at the carotid bulb with [id number] stenosis present. Left: No dissection, occlusion or significant stenosis. There is atherosclerotic calcification seen in the carotid bulb with no significant stenosis. External Carotid: Right: No occlusion or significant stenosis. Left: No occlusion or significant stenosis. Internal Carotid: Right: No dissection, occlusion or significant stenosis. Atherosclerotic calcification is present, but no significant stenosis is seen. Left: No dissection, occlusion or significant stenosis. There is mild atherosclerotic calcifications seen proximally but no significant stenosis is present. Vertebral Artery: Right: No dissection, occlusion or significant stenosis. Left: No dissection, occlusion or significant stenosis. Lung Apices: Emphysematous changes are seen in the lung apices. There is stable scarring in the right lung apex. Bones: Within normal limits for the patient's age. Soft Tissues: Normal. Thyroid gland: Unremarkable. CTA Brain W: Internal Carotid Arteries: There is atherosclerotic calcification present in the cavernous portions of the carotid arteries bilaterally. No significant stenosis, occlusion or aneurysm is seen. Anterior Cerebral Arteries: Right: No aneurysm, occlusion or significant stenosis. Left: No aneurysm, occlusion or significant stenosis. Middle Cerebral Arteries: Right: No aneurysm, occlusion or significant stenosis. Left: No aneurysm, occlusion or significant stenosis. Posterior Cerebral Arteries: Right: No aneurysm, occlusion or significant stenosis. Left: No aneurysm, occlusion or significant stenosis. Vertebral Arteries: Right: No aneurysm, occlusion or significant stenosis. Left: No aneurysm, occlusion or significant stenosis. Basilar Artery: No aneurysm, occlusion or significant stenosis. IMPRESSION: 1. No large vessel occlusion or significant stenosis on the CT angiography of the head. 2. No acute intracranial process. 3. No occlusion or significant stenosis on the CT angiography of the neck. RADIATION DOSE DELIVERED: 2,102.31mGy.cm Total DLP DATA REPOSITORY: All CT scans at this facility are submitted to the National Radiology Data Registry (NRDR) Dose Index Registry (DIR) with the [employer] (ACR). RADIATION OPTIMIZATION: All CT scans at this facility use at least one of these dose optimization techniques: automated exposure control; mA and/or kV adjustment per patient size (includes targeted exams where dose is matched to clinical indication); or iterative reconstruction.
[2025-04-16 16:37] LABS: Abs Immature Grans 0.06 10^3/uL (0.0-0.06); HCT 43.0 % (36.0-46.0); HGB 14.0 g/dL (11.2-15.7); Immature Grans % 0.9 %; MCH 30.4 pg (27.0-33.0); MCHC 32.6 % (32.0-36.0); MCV 93 fL (80-95); MPV 9.7 fL (8.0-11.0); Platelet Count 210 10^3/uL (130-400); RBC 4.61 10^6/uL (3.93-5.22); RDW 13.9 % (11.7-14.6); RDW-SD 47.3 fL; WBC 6.42 10^3/uL (4.4-10.8)
[2025-04-16] MEDS: Omnipaque 350 MG/ML 100 ML BTL IJ (16:44)
[2025-04-16] MEDS: Normal Saline - Diluent 50 ML VIAL IJ (16:44)
[2025-04-16] MEDS: Normal Saline Flush 10 ML SYR IVP (16:45)
--- NOTE | 2025-04-16 16:45 | ED.GENADUL_ITS ---
Discharge Plan Disposition Patient Disposition: Admit to [facility] Condition: Stable Discharge Details Clinical Impression: TIA (transient ischemic attack) Primary Care Provider: Eli Polanco ED Provider: Danika Dixon Home Meds and New Rx's Prescriptions: No Action gabapentin 300 mg capsule 300 mg PO QHS Qty: 90 3RF magnesium oxide 200 mg magnesium tablet 200 mg PO BID Qty: 60 3RF neomycin-polymyxin B-dexameth 3.5 mg/g-10,000 unit/g-0.1 % ointment 1 applic ophthalmic (eye) BID Rx Instructions: Left eye potassium chloride 10 mEq capsule, extended release 10 meq PO DAILY Qty: 90 3RF losartan 50 mg tablet 50 mg PO DAILY Patient Comments: [facility] Vascular note 04/18/23 Dr. Monreal.HE chlorhexidine gluconate [Paroex Oral Rinse] 0.12 % mouthwash 15 ml mucous membrane BID Qty: 300 0RF Rx Instructions: Trial mouth cleaning rinse x1 week; STOP if it stings albuterol sulfate 90 mcg/actuation HFA aerosol inhaler 1 puff INHALATION Q6H PRN PRN (Reason: shortness of breath or wheezing) Qty: 6.7 1RF Rx Instructions: as best dispensed per insurance budesonide 0.25 mg/2 mL suspension for nebulization 0.25 mg inhalation BID Qty: 60 6RF budesonide-formoterol [Symbicort] 160-4.5 mcg/actuation HFA aerosol inhaler 2 puff inhalation BID Qty: 10.2 6RF diclofenac sodium 3 % gel 1 applic topical BID Qty: 100 0RF acetaminophen [Tylenol] 325 MG tablet 650 mg PO Q6H PRN PRN ipratropium-albuterol 0.5 mg-3 mg(2.5 mg base)/3 mL solution for nebulization 3 ml inhalation Q6H PRN (Reason: shortness of breath or wheezing) Qty: 180 1RF amlodipine 5 mg tablet 10 mg PO DAILY Qty: 180 3RF cyanocobalamin (vitamin B-12) 1,000 mcg tablet See Rx Instructions .ROUTE .COMPLEX Qty: 90 3RF Dose Instruction: TAKE ONE TABLET BY MOUTH EVERY DAY Rx Instructions: TAKE ONE TABLET BY MOUTH EVERY DAY citalopram 40 mg tablet 40 mg PO DAILY Qty: 90 3RF hydroxyzine HCl 25 mg tablet 25 mg PO BID PRN (Reason: Worry, Anxiety, Nausea) Qty: 30 2RF Rx Instructions: Trial for anxiety cholecalciferol (vitamin D3) 50 mcg (2,000 unit) capsule See Rx Instructions .ROUTE .COMPLEX Qty: 90 3RF Dose Instruction: TAKE ONE CAPSULE BY MOUTH EVERY DAY Rx Instructions: TAKE ONE CAPSULE BY MOUTH EVERY DAY atorvastatin 40 mg tablet See Rx Instructions .ROUTE .COMPLEX Qty: 90 2RF Dose Instruction: Take 1 tablet by mouth every day Rx Instructions: Take 1 tablet by mouth every day prednisone 5 mg tablet See Rx Instructions .ROUTE .COMPLEX Qty: 90 1RF Dose Instruction: TAKE ONE TABLET BY MOUTH EVERY DAY Rx Instructions: TAKE ONE TABLET BY MOUTH EVERY DAY pantoprazole 40 mg tablet,delayed release (DR/EC) See Rx Instructions .ROUTE .COMPLEX Qty: 90 2RF Dose Instruction: Take 1 tablet by mouth every day Rx Instructions: Take 1 tablet by mouth every day Xarelto 10 mg tablet 10 mg PO DAILY Qty: 90 1RF aspirin 81 mg capsule 81 mg PO DAILY HPI General Mode of arrival: ambulatory . Date/Time Provider Initiated Documentation: 04/16/25 16:10 . Limitations to Documentation: no limitations . Information obtained by: patient, family and old records reviewed . HPI Narrative: This is a 75-year-old female patient with a past medical history significant for stroke without residual deficit, history of temporal arteritis on steroids, h istory of hypertension, GERD, oral/jaw cancer in remission, presenting for evaluation of right sided weakness. The patient reports that suddenly at 8 AM yesterday when she was walking out of the bathroom she had an episode of weakness and numbness in the right side of her body. This caused her to fall, her was able to catch her and she did not sustain trauma. She states that her weakness and numbness improved significantly after several minutes, though she still feels slightly weak on the side compared to her normal. At the time of the event she did have an episode of vertigo, which she has had in the past. Denies new vision changes, does not have a headache but states that the right side of her head feels atypical. The patient reports that she is currently anticoagulated for history of pulmonary embolism, takes rivaroxaban daily. Denies speech changes, chest pain, recent fevers. Related Data Home Medications ?Medication ?Instructions ?Recorded ?Confirmed acetaminophen 325 mg tablet 650 mg PO Q6H PRN PRN 03/2 12/1504/16/25 (Tylenol) losartan 50 mg tablet 50 mg PO DAILY 05/03/2304/02 chlorhexidine gluconate 0.12 % 15 ml mucous membrane B ID #300 mL 01/09/24 04/16/25 mouthwash (Paroex Oral Rinse) albuterol sulfate 90 mcg/actuation 1 puff inhalation Q 6H PRN PRN 01/14/24 04/16/25 aerosol inhaler shortness of breath or wheez ing #6.7 grams budesonide 0.25 mg/2 mL suspension 0.25 mg (2 mL) inha lation BID #60 01/14/24 04/16/25 for nebulization mL budesonide-formoterol HFA 160 2 puff inhalation BID #1 0.2 grams 01/14/24 04/16/25 mcg-4.5 mcg/actuation aerosol inhaler (Symbicort) ipratropium 0.5 mg-albuterol 3 mg 3 ml inhalation Q6H PRN shortness 01/14/24 04/16/25 (2.5 mg base)/3 mL nebulization of breath or wheezing #180 mL soln amlodipine 5 mg tablet 10 mg (2 x 5 mg) PO DAILY #1 80 tabs 05/13/24 04/16/25 cyanocobalamin (vitamin B-12) See Rx Instructions .Rou te 10/09/24 04/16/25 1,000 mcg tablet .COMPLEX #90 tabs citalopram 40 mg tablet 40 mg PO DAILY #90 tabs 03/0 02/2404/16/25 hydroxyzine HCl 25 mg tablet 25 mg PO BID PRN Worry, A nxiety, 11/24/24 04/16/25 Nausea #30 tabs cholecalciferol (vitamin D3) 50 See Rx Instructions .R oute 12/04/24 04/16/25 mcg (2,000 unit) capsule .COMPLEX #90 caps diclofenac sodium 3 % topical gel 1 applic topical BID neck/shoulder 01/01/25 04/16/25 pain #100 grams gabapentin 300 mg capsule 300 mg PO QHS #90 caps 01/0704/16/25 magnesium oxide 200 mg PO BID #60 tabs 02/0204/16/25 atorvastatin 40 mg tablet See Rx Instructions .Route 0 02/09/25 04/16/25 .COMPLEX #90 tabs prednisone 5 mg tablet See Rx Instructions .Route 0 02/16/25 04/16/25 .COMPLEX #90 tabs pantoprazole 40 mg tablet,delayed See Rx Instructions .Route 03/08/25 04/16/25 release .COMPLEX #90 tabs neomycin 3.5 mg/g-polymyxin B 1 applic ophthalmic (eye ) BID 04/02/25 04/16/25 10,000 unit/g-dexameth 0.1 % eye oint potassium chloride 10 mEq 10 meq PO DAILY #90 caps 09/2604/16/25 capsule,extended release rivaroxaban 10 mg tablet (Xarelto) 10 mg PO DAILY #90 tabs 04/14/25 04/16/25 aspirin 81 mg capsule 81 mg PO DAILY 04/16/2504/02 Previous Rx's ?Medication ?Instructions ?Recorded chlorhexidine gluconate 0.12 % 15 ml mucous membrane B ID #300 mL 01/09/24 mouthwash (Paroex Oral Rinse) albuterol sulfate 90 mcg/actuation 1 puff inhalation Q 6H PRN PRN 01/14/24 aerosol inhaler shortness of breath or wheez ing #6.7 grams budesonide 0.25 mg/2 mL suspension 0.25 mg (2 mL) inha lation BID #60 01/14/24 for nebulization mL budesonide-formoterol HFA 160 2 puff inhalation BID #1 0.2 grams 01/14/24 mcg-4.5 mcg/actuation aerosol inhaler (Symbicort) ipratropium 0.5 mg-albuterol 3 mg 3 ml inhalation Q6H PRN shortness 01/14/24 (2.5 mg base)/3 mL nebulization of breath or wheezing #180 mL soln amlodipine 5 mg tablet 10 mg (2 x 5 mg) PO DAILY #1 80 tabs 05/13/24 cyanocobalamin (vitamin B-12) See Rx Instructions .Rou te 10/09/24 1,000 mcg tablet .COMPLEX #90 tabs citalopram 40 mg tablet 40 mg PO DAILY #90 tabs 02/24 hydroxyzine HCl 25 mg tablet 25 mg PO BID PRN Worry, A nxiety, 11/24/24 Nausea #30 tabs cholecalciferol (vitamin D3) 50 See Rx Instructions .R oute 12/04/24 mcg (2,000 unit) capsule .COMPLEX #90 caps diclofenac sodium 3 % topical gel 1 applic topical BID neck/shoulder 01/01/25 pain #100 grams gabapentin 300 mg capsule 300 mg PO QHS #90 caps 01/07 magnesium oxide 200 mg PO BID #60 tabs 02/02 atorvastatin 40 mg tablet See Rx Instructions .Route 0 02/09/25 .COMPLEX #90 tabs prednisone 5 mg tablet See Rx Instructions .Route 0 02/16/25 .COMPLEX #90 tabs pantoprazole 40 mg tablet,delayed See Rx Instructions .Route 03/08/25 release .COMPLEX #90 tabs potassium chloride 10 mEq 10 meq PO DAILY #90 caps 09/26 capsule,extended release rivaroxaban 10 mg tablet (Xarelto) 10 mg PO DAILY #90 tabs 04/14/25 Allergies Allergy/AdvReac Type Severity Reaction Status Date / Time clarithromycin Allergy Severe HIVES Verified 04/16/25 14:55 Penicillins Allergy Severe HIVES Verified 04/16/25 14:55 tetracycline Allergy Severe HIVES, Verified 04/16/25 14:55 HALLUCINATIONS eszopiclone (Eszopiclone) Allergy Unknown pt unsure Verified 04/16/25 14:55 of reaction telithromycin (Telithromycin) Allergy Unknown pt unsure Verified 04/16/25 14:55 raloxifene HCl (From Evista) AdvReac Intermediate BODY ACHES Verified 04/16/25 14:55 sulfamethoxazole (From AdvReac Intermediate HEADACHE,VO Verified 04/16/25 14:55 Bactrim) MITING trimethoprim (From Bactrim) AdvReac Intermediate HEADACHE,VO Verified 04/16/25 14:55 MITING alendronate sodium AdvReac Mild BODY ACHE Verified 04/16/25 14:55 codeine AdvReac Mild GI UPSET Verified 04/16/25 14:55 risedronate sodium (From AdvReac Mild BODY ACHES Verified 04/16/25 14:55 Actonel) Bisphosphonates AdvReac Unknown achy joints Verified 04/16/25 14:55 hydrocodone (Hydrocodone) AdvReac Unknown vomitting Verified 04/16/25 14:55 Macrolide Antibiotics AdvReac Unknown vomitting Verified 04/16/25 14:55 and hallucinations morphine AdvReac Unknown pt. felt Verified 04/16/25 14:55 like she was floating, states she thinks she got to Sulfa (Sulfonamide AdvReac Other (See Verified 04/16/25 14:55 Antibiotics) Comment) General Stated Complaint: CVA/TIA TENA: 2 Exam Narrative Exam Narrative: Gen: awake and alert, in no apparent distress. Appears well nourished. HEENT: PERRL, EOMs full and without nystagmus. External ears and nose normal, mucous membranes moist. Neck: Supple, full range of motion, no observable masses Lungs: No increased work of breathing CV: Heart with regular rate and rhythm. Strong and symmetrical radial pulses. Abdomen: Soft, nondistended, non-tender to palpation. No rigidity, rebound tenderness, or guarding. MSK: No joint swelling, no redness. Full ROM without limitation, no external traumatic findings. Skin: No rashes or lesions to visualized skin. Normal color, warm, and dry. Neuro: Cranial nerves II-XII intact and symmetrical bilaterally. 5/5 strength left upper and lower, 4 out of 5 strength right upper and lower. No pronator drift, no sensory deficits. Ambulates with steady gait. Psych: Appropriate for situation. Course Vital Signs Vital signs: Vital Signs Temperature 36.6 C 04/16/25 16:02 Pulse 60 04/16/25 16:02 Respiratory Rate 18 04/16/25 16:02 Blood Pressure 138/72 04/16/25 16:02 Pulse Oximetry 96 04/16/25 16:02 Temperature 36.6 C 04/16/25 16:02 Temperature Source Oral 04/16/25 16:02 Pulse 57 L 04/16/25 16:40 Pulse 57 L 04/16/25 16:40 Respiratory Rate 18 04/16/25 16:40 Blood Pressure 138/72 04/16/25 16:02 Blood Pressure Position Sitting 04/16/25 16:02 Pulse Oximetry 99 04/16/25 16:40 Oxygen Delivery Method Room Air 04/16/25 16:02 Oxygen Flow Rate 0 04/16/25 16:02 Lab/Test Results Lab/Test Results: Laboratory Tests Range/Units 08/15/25 16:30 WBC (4.4-10.8) 10^3/uL 6.42 RBC (3.93-5.22) 10^6/uL 4.61 Hgb (11.2-15.7) g/dL 14.0 Hct (36.0-46.0) % 43.0 MCV (80-95) fL 93 MCH (27.0-33.0) pg 30.4 MCHC (32.0-36.0) % 32.6 RDW (11.7-14.6) % 13.9 Plt Count (130-400) 10^3/uL 210 MPV (8.0-11.0) fL 9.7 Immature Gran % % 0.9 Neutrophils % % 74.9 Lymphocytes % % 14.0 Monocytes % % 9.7 Eosinophils % % 0.0 Basophils % % 0.5 Nucleated RBC % (0.0-0.3) % 0.0 Absolute Neutrophils (1.2-6.7) 10^3/uL 4.81 Absolute Lymphocytes (1.2-3.4) 10^3/uL 0.90 L Absolute Monocytes (0.1-0.8) 10^3/uL 0.62 Absolute Eosinophils (0.0-0.7) 10^3/uL 0.00 Absolute Basophils (0.0-0.2) 10^3/uL 0.03 Medical Decision Making This is a 75-year-old female patient presenting for evaluation after a sudden episode of right-sided weakness and numbness that caused her to nearly fall. Differential includes but is not limited to stroke/TIA, intracranial hemorrhage, intracranial mass. Consider vascular abnormality including dissection and aneurysm. Considered arrhythmia, ACS, metabolic electrolyte derangement, dehydration. Unfortunately, the patient is greater than 24 hours since her symptoms, and does not meet criteria for tPA administration or thrombectomy and therefore would not meet criteria for activation of a stroke alert. We did obtain a blood glucose to rule out hypoglycemia which was normal at 107. I obtained an EKG which shows a sinus rhythm with a rate of 60, and no evidence of ischemia, interval abnormality, or ectopy. We will obtain laboratory studies to include CBC, CMP, magnesium, troponin, and INR. I will obtain a CTA of the patient's brain and neck to evaluate abnormalities which might of caused her symptoms. - I independently interpreted the laboratory studies, which show no significant leukocytosis, anemia, or thrombocytopenia. The chemistry panel is without evidence of electrolyte abnormality or liver injury. The patient does have baseline renal dysfunction with a BUN of 31 and creatinine of 1.2. Troponin was negative. CTA reviewed by myself, radiology notes no new acute infarct, large vessel occlusion, or intracranial hemorrhage. Given the ongoing right leg weakness, and the concerning history of stroke I did reach out to [facility] teleneurology who evaluated the patient. She is appropriately anticoagulated and on antiplatelet agents, but they do recommend admission for MRI in the morning as well as echo to evaluate for other reversible causes of recurrent stroke. I reached out to the hospitalist who has graciously accepted this patient for admission for ongoing management of her CVA/TIA. The patient remained hemodynamically appropriate while under my care and was transferred to the hospitalist service without incident. Danika Dixon MD [facility] All Active Problems (Updated 04/16/25 @ 19:17 by Danika Dixon MD) TIA (transient ischemic attack) (Acute) Dizziness (Acute) Laceration of face (Acute) Head injury (Acute) Contusion of rib (Acute) Muscle strain of right wrist (Acute) Abnormal laboratory test (Acute) Dry eye syndrome (Acute) Follow-up exam (Acute) Stroke (Chronic) Neck muscle strain (Acute) Double vision (Acute) Mild protein-calorie malnutrition (Acute) Serum calcium elevated (Acute) At risk for osteoporosis (Acute) Prednisone, Chemo/Radiation (2023) Loss of eyelashes (Acute) Cancer of oral cavity (Acute) [facility] code from 04.29.24 note.HE Cancer related pain (Acute) 04/08/24 [facility] Hem/Onc note Dysphagia (Acute) 04/08/24 [facility] Hem/Onc note 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 Pure hypercholesterolemia (Acute) Referred otalgia of left ear (Acute) Giant cell arteritis (Acute 2008) Recurrence of symptoms 10/2022 ILD (interstitial lung disease) (Acute) Facial numbness (Acute) chin, @ region resting on PFT equipment TMJ inflammation (Acute) from clenching? positioning? during PFT (~05/22/23) Lip pain (Acute) inner lip pain, into left inner cheek (apthous ulcer? thrush? referred jam/TMJ pain?) Pain in lower jaw (Acute) MEHUL treated with BiPAP (Acute) Bronchiectasis (Acute) Dyspnea on exertion (Acute) Pulmonary emphysema (Acute) Benign essential hypertension (Acute 04/10/13) Fall (Acute) Diarrhea (Acute) Prediabetes (Acute) 10/2022: 5.9 .. 09/2021: 5.7.. Bronchitis (Acute) Hearing loss, bilateral (Acute) Fatigue (Acute) feeling lazy, but chemo? rad? cancer + post fx back Discharged from [facility] 05/19: Encephalopathy and UTI - Ciprofloxacin, magnesium Seen at [facility] ED 05/21: Fall, rib contusion, fracture right great toe - Can wear postop shoe and tape toe to next toe-- Pt reports she is getting better everyday and goes to the cancer center daily for treatment-- Macrocytosis (Acute) Hypokalemia (Acute) PAD (peripheral artery disease) (Chronic) focal rt common iliac artery stenosis per CARD notes, ID in 2019 Peripheral vascular disease (Chronic) Orthostasis (Acute) Temporal arteritis (Acute) Depressive disorder, not elsewhere classified (Acute 10/12/11) Esophageal reflux (Acute 12/10/12) EGD 05/25/13 KD: mild antritis and distal esophagitis; int metaplasia, no dysplasia Allergic rhinitis, unspecified (Acute 12/10/12) Leukoplakia of oral cavity (Acute) Anxiety and depression (Chronic) GERD (gastroesophageal reflux disease) (Chronic) Medical History Acute UTI VTE (venous thromboembolism) 04/08/24 [facility] Hem/Onc note Primary osteoarthritis of right hip Periodic limb movement disorder Primary osteoarthritis of left knee (~07/2023) Rheumatology Trigeminal neuralgia of left side of face questionable -- was this the oral cancer? Other pulmonary embolism without acute cor pulmonale (Unknown) Massive PE, Apr 08, 2022 per pt report .. [facility] note 04/16/23.HE Former smoker quit 23 yrs ago! Neoplasm of unspecified behavior of bone, soft tissue, and skin Lumbago (12/10/12) Osteoarthritis DJD (degenerative joint disease) Anticoagulant long-term use Xarelto.. Hx Eliquis, PE, 2019 Polymyalgia rheumatica (10/12/11) Urinary bladder incontinence (~04/2024) 04/27/24 intermittent and U/A done at [facility] Hem/Onc Buccal mass Primary hypertension Hx of adenomatous colonic polyps (~05/2019) villous adenoma History of pulmonary embolism Pulmonary embolism 2019 .. Eliquis, then Xarelto.. Diverticulosis 05/12/[address] Mariela Arizmendi, [facility] Colon polyps Abnormal colonoscopy (11/11/15) 11/11/15 Dr Brizuela, sessile serrated adenoma, repeat 3 years. mg Adenomatous colon polyp 11/11/15 Dr Brizuela, sessile serrated adenoma, repeat 3 years. mg Benign paroxysmal vertigo (10/12/11) Midline cystocele (12/10/12) pt. unsure Obstructive sleep apnea (adult) (pediatric) (01/19/13) Stopped BIPAP, 2019. severe, Dr. Greer, on auto Bi-Level bipap Obesity (12/10/12) Restless legs (01/19/13) Dr. Greer Sensorineural hearing loss, bilateral (06/03/14) Tinnitus (06/03/14) Vertigo (06/03/14) Serrated polyp of colon (11/11/15) Hyperlipemia Surgical History Status post gastrostomy tube placement, follow-up exam (~03/26/24) History of temporal artery biopsy Hx of colonoscopy History of cardiac cath Hysterectomy, Laproscopic Bilateral salpingectomy with oophorectomy (~12/2006) Family History Sister Cancer Breast cancer Father Heart disease Mother Heart disease Brother Heart disease [place] Social History Smoking/Tobacco Use Status: Former Tobacco Use Quit Date: 09/02/99 Tobacco: How many years used: 20 Smoking risk assessment performed?: Yes Alcohol Intake: former Drug use: Never Substance use type: does not use Adopted: No Caregiver/Support person: No Foster care: No Housing: house Number of Children: 3 number of grandchildren: 4 Communication Needs: Hard of Hearing Education Level: high school current occupation: Retired Pets and animals: Yes Pets and animals: dog(s) Sexually active: No Do you think of yourself as: straight/heterosexual Current gender identity: female What is your relationship status?: How often do you talk on the phone with friends or family?: three or more times per week How often do you get together with friends or relatives?: once per week Do you belong to any clubs or organized social groups?: no Panel score (0-1 are the most socially isolated patients): 2 What type of physical activity do you participate in: none Dilia/Presybeterian: Anabaptist Special dilia needs: No Seatbelt use: always Drive intox or ride w/intox limb driver: No Do you feel safe at home: Yes Do you feel safe in your relationship?: Yes Additional Social history: Lives with of 55 years in [place]. She has 3 kids who live close. 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
[2025-04-16 16:48] LABS: INR 1.0 (0.9-1.1); Prothrombin Time 10.2 sec (9.1-11.1)
[2025-04-16 16:56] LABS: ALT 24 U/L (14-59); AST 18 U/L (15-37); Albumin 4.1 g/dL (3.4-5.0); Alkaline Phosphatase 89 U/L (46-116); Anion Gap 13.4 mmol/L (3-11); BUN 31 mg/dL (7-18); Bilirubin, Total 0.5 mg/dL (0.2-1.0); CO2 24.6 mmol/L (21.0-32.0); Calcium 9.8 mg/dL (8.5-10.1); Chloride 102 mmol/L (98-107); Estimated GFR 46.91 (mL/min/1.73m2); Glucose 110 mg/dL (74-106); Magnesium 2.1 mg/dL (1.8-2.4); Potassium 4.1 mmol/L (3.5-5.1); Sodium 140 mmol/L (136-145); Total Protein 8.0 g/dL (6.4-8.2); Troponin I 9 ng/L (<or=51)
[2025-04-16 19:51] LABS: Troponin I 9 ng/L (<or=51)
--- NOTE | 2025-04-16 20:50 | HPE_ITS ---
Date of service: 04/16/25 Time of Service: 20:00 Assessment and Plan Assessment and plan (1) TIA (transient ischemic attack): Status: Acute Assessment and plan: Likely TIA with substantial resolution of symptoms and no evident lesions on imaging Admit for MRI and echocardiogram, PT evaluation, telemetry Note prior falls, prior fatigue episodes (2) History of pulmonary embolism: Assessment and plan: Per review of the record, she had a PE prior to massive 2022 PE treated at [facility] Anticoagulated continuously (3) Anticoagulant long-term use: Assessment and plan: Continue home rivaroxaban (4) Temporal arteritis: Status: Acute Assessment and plan: Continue steroids (5) Current chronic use of systemic steroids: Status: Acute Assessment and plan: Mild hyperglycemia (6) Chronic hypokalemia: Status: Acute Assessment and plan: Continue home K supplementation (7) ILD (interstitial lung disease): Status: Acute Assessment and plan: Hold home regimen, PRN duonebs (8) Benign essential hypertension: Status: Acute Assessment and plan: Continue home amlodipine, losartan (9) GERD (gastroesophageal reflux disease): Status: Chronic Assessment and plan: Continue home PPI History of Present Illness History of Present Illness Chief Complaint: right side weakness Narrative: Tena Nickerson is a 75 year old woman presenting April 16 with 1 day of right sided weakness, beginning with a fall approximately 28 hours prior to arrival. The fall was non injurious and was preceded by weakness and numbness along the right side of her leg, arm and torso. Symptoms largely resolved within minutes, however she continued to have some weakness and her right face started to be slightly numb, so she went to her PCP who sent her to the ED. She also fell on April 04 and was seen in the ED. She saw her PCP April 02 for fatigue found to be due to hypokalemia and hypoglycemia. She denies chest pain, SOB, abdominal pain, N/V/D. 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 In the ED, BP elevated 150's / 50's, otherwise vitals unremarkable. NSR on EKG. Labs significant only for mildly incrased creatinine 1.[address] brain / CTA head and neck showed no acute pathology, with evidence of previous left cerebellar infarct and chronic disease. [facility] [place] [place] observation, MRI, echo. [facility] All Active Problems (Updated 04/17/25 @ 02:51 by René Knott MD) Chronic hypokalemia (Acute) Current chronic use of systemic steroids (Acute) TIA (transient ischemic attack) (Acute) Dizziness (Acute) Laceration of face (Acute) Head injury (Acute) Contusion of rib (Acute) Muscle strain of right wrist (Acute) Abnormal laboratory test (Acute) Dry eye syndrome (Acute) Follow-up exam (Acute) Stroke (Chronic) Neck muscle strain (Acute) Double vision (Acute) Mild protein-calorie malnutrition (Acute) Serum calcium elevated (Acute) At risk for osteoporosis (Acute) Prednisone, Chemo/Radiation (2023) Loss of eyelashes (Acute) Cancer of oral cavity (Acute) [facility] code from 04.29.24 note.HE Cancer related pain (Acute) 04/08/24 [facility] Hem/Onc note Dysphagia (Acute) 04/08/24 [facility] Hem/Onc note 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 Pure hypercholesterolemia (Acute) Referred otalgia of left ear (Acute) Giant cell arteritis (Acute 2008) Recurrence of symptoms 10/2022 ILD (interstitial lung disease) (Acute) Facial numbness (Acute) chin, @ region resting on PFT equipment TMJ inflammation (Acute) from clenching? positioning? during PFT (~05/22/23) Lip pain (Acute) inner lip pain, into left inner cheek (apthous ulcer? thrush? referred jam/TMJ pain?) Pain in lower jaw (Acute) MEHUL treated with BiPAP (Acute) Bronchiectasis (Acute) Dyspnea on exertion (Acute) Pulmonary emphysema (Acute) Benign essential hypertension (Acute 04/10/13) Fall (Acute) Diarrhea (Acute) Prediabetes (Acute) 10/2022: 5.9 .. 09/2021: 5.7.. Bronchitis (Acute) Hearing loss, bilateral (Acute) Fatigue (Acute) feeling lazy, but chemo? rad? cancer + post fx back Discharged from [facility] 05/19: Encephalopathy and UTI - Ciprofloxacin, magnesium Seen at [facility] ED 05/21: Fall, rib contusion, fracture right great toe - Can wear postop shoe and tape toe to next toe-- Pt reports she is getting better everyday and goes to the cancer center daily for treatment-- Macrocytosis (Acute) Hypokalemia (Acute) PAD (peripheral artery disease) (Chronic) focal rt common iliac artery stenosis per CARD notes, ID in 2019 Peripheral vascular disease (Chronic) Orthostasis (Acute) Temporal arteritis (Acute) Depressive disorder, not elsewhere classified (Acute 10/12/11) Esophageal reflux (Acute 12/10/12) EGD 05/25/13 KD: mild antritis and distal esophagitis; int metaplasia, no dysplasia Allergic rhinitis, unspecified (Acute 12/10/12) Leukoplakia of oral cavity (Acute) Anxiety and depression (Chronic) GERD (gastroesophageal reflux disease) (Chronic) Medical History Acute UTI VTE (venous thromboembolism) 04/08/24 [facility] Hem/Onc note Primary osteoarthritis of right hip Periodic limb movement disorder Primary osteoarthritis of left knee (~07/2023) Rheumatology Trigeminal neuralgia of left side of face questionable -- was this the oral cancer? Other pulmonary embolism without acute cor pulmonale (Unknown) Massive PE, Apr 08, 2022 per pt report .. [facility] note 04/16/23.HE Former smoker quit 23 yrs ago! Neoplasm of unspecified behavior of bone, soft tissue, and skin Lumbago (12/10/12) Osteoarthritis DJD (degenerative joint disease) Anticoagulant long-term use Xarelto.. Hx Eliquis, PE, 2019 Polymyalgia rheumatica (10/12/11) Urinary bladder incontinence (~04/2024) 04/27/24 intermittent and U/A done at [facility] Hem/Onc Buccal mass Primary hypertension Hx of adenomatous colonic polyps (~05/2019) villous adenoma History of pulmonary embolism Pulmonary embolism 2019 .. Eliquis, then Xarelto.. Diverticulosis 05/12/[address] Mariela Arizmendi, [facility] Colon polyps Abnormal colonoscopy (11/11/15) 11/11/15 Dr Brizuela, sessile serrated adenoma, repeat 3 years. mg Adenomatous colon polyp 11/11/15 Dr Brizuela, sessile serrated adenoma, repeat 3 years. mg Benign paroxysmal vertigo (10/12/11) Midline cystocele (12/10/12) pt. unsure Obstructive sleep apnea (adult) (pediatric) (01/19/13) Stopped BIPAP, 2020. severe, Dr. Greer, on auto Bi-Level bipap Obesity (12/10/12) Restless legs (01/19/13) Dr. Greer Sensorineural hearing loss, bilateral (06/03/14) Tinnitus (06/03/14) Vertigo (06/03/14) Serrated polyp of colon (11/11/15) Hyperlipemia Surgical History Status post gastrostomy tube placement, follow-up exam (~03/26/24) History of temporal artery biopsy Hx of colonoscopy History of cardiac cath Hysterectomy, Laproscopic Bilateral salpingectomy with oophorectomy (~12/2006) Family History Sister Cancer Breast cancer Father Heart disease Mother Heart disease Brother Heart disease CT Social History Smoking/Tobacco Use Status: Former Tobacco Use Quit Date: 09/02/99 Tobacco: How many years used: 20 Smoking risk assessment performed?: Yes Alcohol Intake: former Drug use: Never Substance use type: does not use Adopted: No Caregiver/Support person: No Foster care: No Housing: house Number of Children: 3 number of grandchildren: 4 Communication Needs: Hard of Hearing Education Level: high school current occupation: Retired Pets and animals: Yes Pets and animals: dog(s) Sexually active: No Do you think of yourself as: straight/heterosexual Current gender identity: female What is your relationship status?: How often do you talk on the phone with friends or family?: three or more times per week How often do you get together with friends or relatives?: once per week Do you belong to any clubs or organized social groups?: no Panel score (0-1 are the most socially isolated patients): 2 What type of physical activity do you participate in: none Dilia/Jainism: Baptism Special dilia needs: No Seatbelt use: always Drive intox or ride w/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 She has 3 kids who live close. 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 Meds Allergies and Home Medications Allergies Allergy/AdvReac Type Severity Reaction Status Date / Time clarithromycin Allergy Severe HIVES Verified 04/16/25 14:55 Penicillins Allergy Severe HIVES Verified 04/16/25 14:55 tetracycline Allergy Severe HIVES, Verified 04/16/25 14:55 HALLUCINATIONS eszopiclone (Eszopiclone) Allergy Unknown pt unsure Verified 04/16/25 14:55 of reaction telithromycin (Telithromycin) Allergy Unknown pt unsure Verified 04/16/25 14:55 raloxifene HCl (From Evista) AdvReac Intermediate BODY ACHES Verified 04/16/25 14:55 sulfamethoxazole (From AdvReac Intermediate HEADACHE,VO Verified 04/16/25 14:55 Bactrim) MITING trimethoprim (From Bactrim) AdvReac Intermediate HEADACHE,VO Verified 04/16/25 14:55 MITING alendronate sodium AdvReac Mild BODY ACHE Verified 04/16/25 14:55 codeine AdvReac Mild GI UPSET Verified 04/16/25 14:55 risedronate sodium (From AdvReac Mild BODY ACHES Verified 04/16/25 14:55 Actonel) Bisphosphonates AdvReac Unknown achy joints Verified 04/16/25 14:55 hydrocodone (Hydrocodone) AdvReac Unknown vomitting Verified 04/16/25 14:55 Macrolide Antibiotics AdvReac Unknown vomitting Verified 04/16/25 14:55 and hallucinations morphine AdvReac Unknown pt. felt Verified 04/16/25 14:55 like she was floating, states she thinks she got to Sulfa (Sulfonamide AdvReac Other (See Verified 04/16/25 14:55 Antibiotics) Comment) Home Medications ?Medication ?Instructions ?Recorded ?Confirmed ?Type acetaminophen 325 mg tablet 650 mg PO Q6H PRN PRN 11/0104/16/25 History (Tylenol) losartan 50 mg tablet 50 mg PO DAILY 05/03/2304/02 History chlorhexidine gluconate 0.12 % 15 ml mucous membrane B ID #300 mL 01/09/24 04/16/25 Rx mouthwash (Paroex Oral Rinse) albuterol sulfate 90 mcg/actuation 1 puff inhalation Q 6H PRN PRN 01/14/24 04/16/25 Rx aerosol inhaler shortness of breath or wheez ing #6.7 grams budesonide 0.25 mg/2 mL suspension 0.25 mg (2 mL) inha lation BID #60 01/14/24 04/16/25 Rx for nebulization mL budesonide-formoterol HFA 160 2 puff inhalation BID #1 0.2 grams 01/14/24 04/16/25 Rx mcg-4.5 mcg/actuation aerosol inhaler (Symbicort) ipratropium 0.5 mg-albuterol 3 mg 3 ml inhalation Q6H PRN shortness 01/14/24 04/16/25 Rx (2.5 mg base)/3 mL nebulization of breath or wheezing #180 mL soln amlodipine 5 mg tablet 10 mg (2 x 5 mg) PO DAILY #1 80 tabs 05/13/24 04/16/25 Rx cyanocobalamin (vitamin B-12) See Rx Instructions .Rou te 10/09/24 04/16/25 Rx 1,000 mcg tablet .COMPLEX #90 tabs citalopram 40 mg tablet 40 mg PO DAILY #90 tabs 0302/2404/16/25 Rx hydroxyzine HCl 25 mg tablet 25 mg PO BID PRN Worry, A nxiety, 11/24/24 04/16/25 Rx Nausea #30 tabs cholecalciferol (vitamin D3) 50 See Rx Instructions .R oute 12/04/24 04/16/25 Rx mcg (2,000 unit) capsule .COMPLEX #90 caps diclofenac sodium 3 % topical gel 1 applic topical BID neck/shoulder 01/01/25 04/16/25 Rx pain #100 grams gabapentin 300 mg capsule 300 mg PO QHS #90 caps 01/0704/16/25 Rx magnesium oxide 200 mg PO BID #60 tabs 02/0204/16/25 Rx atorvastatin 40 mg tablet See Rx Instructions .Route 0 02/09/25 04/16/25 Rx .COMPLEX #90 tabs prednisone 5 mg tablet See Rx Instructions .Route 0 02/16/25 04/16/25 Rx .COMPLEX #90 tabs pantoprazole 40 mg tablet,delayed See Rx Instructions .Route 03/08/25 04/16/25 Rx release .COMPLEX #90 tabs neomycin 3.5 mg/g-polymyxin B 1 applic ophthalmic (eye ) BID 04/02/25 04/16/25 History 10,000 unit/g-dexameth 0.1 % eye oint potassium chloride 10 mEq 10 meq PO DAILY #90 caps 09/2604/16/25 Rx capsule,extended release rivaroxaban 10 mg tablet (Xarelto) 10 mg PO DAILY #90 tabs 04/14/25 04/16/25 Rx aspirin 81 mg capsule 81 mg PO DAILY 04/16/2504/02 History Exam Narrative Exam Narrative: General: This is an elderly woman in no acute distress HEENT: Normocephalic, atraumatic CV: RRR Resp: CTAB Abd: NTND MSK: voluntary motion x4 Neuro: Awake, alert, CN II-XII intact. 4/5 strength RUE and RLE, intact on the left. Results Labs 04/16/25 16:30 04/16/25 16:30 Labs: Laboratory Results - last 24 hr 04/16/25 04/16/25 04/16/25 16:30 17:20 19:20 WBC 6.42 RBC 4.61 Hgb 14.0 Hct 43.0 MCV 93 MCH 30.4 MCHC 32.6 RDW 13.9 Plt Count 210 MPV 9.7 Immature Gran % 0.9 Neutrophils % 74.9 Lymphocytes % 14.0 Monocytes % 9.7 Eosinophils % 0.0 Basophils % 0.5 Nucleated RBC % 0.0 Absolute Neutrophils 4.81 Absolute Lymphocytes 0.90 L Absolute Monocytes 0.62 Absolute Eosinophils 0.00 Absolute Basophils 0.03 PT 10.2 INR 1.0 Sodium 140 Potassium 4.1 Chloride 102 Carbon Dioxide 24.6 Anion Gap 13.4 H BUN 31 H Creatinine 1.2 H Est GFR (CKD-EPI 2020) 46.91 Glucose 110 H Calcium 9.8 Magnesium 2.1 Total Bilirubin 0.5 AST 18 ALT 24 Alkaline Phosphatase 89 Troponin I 9 Cancelled 9 Total Protein 8.0 Albumin 4.1 Last Vital Signs Temp 36.6 C 04/16/25 16:02 Pulse 64 04/16/25 18:20 Resp 15 04/16/25 18:25 BP 159/57 H 04/16/25 18:16 Pulse Ox 100 04/16/25 18:20 Time Spent Time spent with Patient: 40-54 minutes Time was spent: preparing to see the patient(eg.review tests), obtaining and/or reviewing separately otained hiistory, ordering medications,tests, procedures, referring, communicating with other health care support representative, indepentently interpreting results, counseling the patient and care coordination
--- NOTE | 2025-04-16 21:40 | W.PC.ACHO ---
Registration Status: REG ER Primary Language: Preferred Language: Hebrew ED Information & Data Chief Complaint CVA/TIA 04/16/25 16:48 Triage Note pt states she lost control 04/16/25 16:02 of the right side of body and almost fell, but caught her. she called MD and they wanted her to come in to r/o stroke, has PICKARD took tylenol Medical / Surgical History (Last Reviewed 01/07/25 @ 08:29 by Danika Jauregui MD) Acute UTI VTE (venous thromboembolism) Primary osteoarthritis of right hip Periodic limb movement disorder Primary osteoarthritis of left knee (~07/2023) Trigeminal neuralgia of left side of face Other pulmonary embolism without acute cor pulmonale (Unknown) Former smoker Neoplasm of unspecified behavior of bone, soft tissue, and skin Lumbago (12/10/12) Osteoarthritis DJD (degenerative joint disease) Anticoagulant long-term use Polymyalgia rheumatica (10/12/11) Urinary bladder incontinence (~04/2024) Buccal mass Primary hypertension Hx of adenomatous colonic polyps (~05/2019) History of pulmonary embolism Pulmonary embolism Diverticulosis Colon polyps Abnormal colonoscopy (11/11/15) Adenomatous colon polyp Benign paroxysmal vertigo (10/12/11) Midline cystocele (12/10/12) Obstructive sleep apnea (adult) (pediatric) (01/19/13) Obesity (12/10/12) Restless legs (01/19/13) Sensorineural hearing loss, bilateral (06/03/14) Tinnitus (06/03/14) Vertigo (06/03/14) Serrated polyp of colon (11/11/15) Hyperlipemia (Last Reviewed 01/07/25 @ 08:29 by Danika Jauregui MD) Status post gastrostomy tube placement, follow-up exam (~03/26/24) History of temporal artery biopsy Hx of colonoscopy History of cardiac cath Hysterectomy, Laproscopic Bilateral salpingectomy with oophorectomy (~12/2006) Most Recent Vital Signs Temperature 36.6 C 04/16/25 16:02 Temperature Source Oral 04/16/25 16:02 Pulse 64 04/16/25 18:20 Pulse 65 04/16/25 18:20 Respiratory Rate 15 04/16/25 18:25 Respiratory Effort Normal 04/16/25 18:25 Respiratory Depth Normal 04/16/25 18:25 Respiratory Pattern Normal 04/16/25 18:25 Blood Pressure 159/57 H 04/16/25 18:16 Blood Pressure Mean 93 04/16/25 18:16 Blood Pressure Position Sitting 04/16/25 16:02 Pulse Oximetry 100 04/16/25 18:20 Oxygen Delivery Method Room Air 04/16/25 16:02 Oxygen Flow Rate 0 04/16/25 16:02 Allergies clarithromycin Allergy (Severe, Verified 04/16/25 14:55) HIVES Penicillins Allergy (Severe, Verified 04/16/25 14:55) HIVES pt. reports swelling in mouth and face tetracycline Allergy (Severe, Verified 04/16/25 14:55) HIVES, HALLUCINATIONS eszopiclone (Eszopiclone) Allergy (Unknown, Verified 04/16/25 14:55) pt unsure of reaction telithromycin (Telithromycin) Allergy (Unknown, Verified 04/16/25 14:55) pt unsure raloxifene HCl (From Evista) Adverse Reaction (Intermediate, Verified 04/16/25 14:55) BODY ACHES sulfamethoxazole (From Bactrim) Adverse Reaction (Intermediate, Verified 04/16/25 14:55) HEADACHE,VOMITING trimethoprim (From Bactrim) Adverse Reaction (Intermediate, Verified 04/16/25 14:55) HEADACHE,VOMITING alendronate sodium Adverse Reaction (Mild, Verified 04/16/25 14:55) BODY ACHE codeine Adverse Reaction (Mild, Verified 04/16/25 14:55) GI UPSET risedronate sodium (From Actonel) Adverse Reaction (Mild, Verified 04/16/25 14:55) BODY ACHES Bisphosphonates Adverse Reaction (Unknown, Verified 04/16/25 14:55) achy joints hydrocodone (Hydrocodone) Adverse Reaction (Unknown, Verified 04/16/25 14:55) vomitting Macrolide Antibiotics Adverse Reaction (Unknown, Verified 04/16/25 14:55) vomitting and hallucinations morphine Adverse Reaction (Unknown, Verified 04/16/25 14:55) pt. felt like she was floating, states she thinks she got to Sulfa (Sulfonamide Antibiotics) Adverse Reaction (Verified 04/16/25 14:55) Other (See Comment) Active Medications Generic Name Dose Route Start Last Admin Trade Name Freq PRN Reason Stop Dose Admin Iohexol 100 ml 04/16/25 16:45 04/16/25 16:44 Omnipaque 350 Mg/Ml 100 Ml Btl IJ 05/16/25 23:59 100 ml DIRECTED RAQUEL Administration Sodium Chloride 0 ml 04/16/25 20:00 04/16/25 16:45 Normal Saline Flush 10 Ml Syr IVP 10 ml BID RAQUEL Administration Sodium Chloride 50 ml 04/16/25 16:45 04/16/25 16:44 Normal Saline - Diluent 50 Ml Vial IJ 50 ml .FOR DI USE RAQUEL Administration Diet Orders Category Date Time Status Regular/Normal [DIET] Nutrition 04/17/25 Breakfast Ordered Diagnostics 04/16/25 04/16/25 04/16/25 Range/Units 19:20 17:20 16:30 WBC 6.42 (4.4-10.8) 10^3/uL RBC 4.61 (3.93-5.22) 10^6/uL Hgb 14.0 (11.2-15.7) g/dL Hct 43.0 (36.0-46.0) % MCV 93 (80-95) fL MCH 30.4 (27.0-33.0) pg MCHC 32.6 (32.0-36.0) % RDW 13.9 (11.7-14.6) % Plt Count 210 (130-400) 10^3/uL MPV 9.7 (8.0-11.0) fL Immature Gran % 0.9 % Neutrophils % 74.9 % Lymphocytes % 14.0 % Monocytes % 9.7 % Eosinophils % 0.0 % Basophils % 0.5 % Nucleated RBC % 0.0 (0.0-0.3) % Absolute Neutrophils 4.81 (1.2-6.7) 10^3/uL Absolute Lymphocytes 0.90 L (1.2-3.4) 10^3/uL Absolute Monocytes 0.62 (0.1-0.8) 10^3/uL Absolute Eosinophils 0.00 (0.0-0.7) 10^3/uL Absolute Basophils 0.03 (0.0-0.2) 10^3/uL PT 10.2 (9.1-11.1) sec INR 1.0 (0.9-1.1) Sodium 140 (136-145) mmol/L Potassium 4.1 (3.5-5.1) mmol/L Chloride 102 (98-107) mmol/L Carbon Dioxide 24.6 (21.0-32.0) mmol/L Anion Gap 13.4 H (3-11) mmol/L BUN 31 H (7-18) mg/dL Creatinine 1.2 H (0.55-1.02) mg/dL Est GFR (CKD-EPI 2020) 46.91 (mL/min/1.73m2) Glucose 110 H (74-106) mg/dL Calcium 9.8 (8.5-10.1) mg/dL Magnesium 2.1 (1.8-2.4) mg/dL Total Bilirubin 0.5 (0.2-1.0) mg/dL AST 18 (15-37) U/L ALT 24 (14-59) U/L Alkaline Phosphatase 89 (46-116) U/L Troponin I 9 Cancelled 9 (<or=51) ng/L Total Protein 8.0 (6.4-8.2) g/dL Albumin 4.1 (3.4-5.0) g/dL [id number] Documentation Fingerstick Glucose Start: 04/16/25 16:20 Freq: Status: Active Protocol: Activity Type Activity Date Activity User E-sign Co-sign Detail Recorded Client Recorded Date Recorded By Document 04/16/25 16:20 BKG DAEMON(3) [id number] 04/16/25 16:20 BKG DAEMON(4) Intake and Output - 24 Hour Total 04/16/25 15:58 thru 04/16/25 16:02 Weight 75.75 kg Falls Risk Assessment History of Falls No History 04/16/25 18:25 Contributing Factors No Factors 04/16/25 18:25 Ambulatory Aids Uses ambulatory device 04/16/25 18:25 Tubes/Lines None 04/16/25 18:25 Gait Evaluation No gait disturbance 04/16/25 18:25 Cognition No cognitive impairment 04/16/25 18:25 Fall Total Score 15 04/16/25 18:25 Level of Risk Standard/Low Risk 04/16/25 18:25 v v v v v v v v v Sending and/or Receiving Nurses: Please use comment section below to note any information pertinent to the patient hand-off not included above. Information / Comments: no further questions. Report received from: PD, Doubling Machine Operator.
[2025-04-16] MEDS: Gabapentin 300 MG CAP PO (22:27)
[2025-04-16] MEDS: Magnesium Oxide 400 MG TAB 200 MG PO (22:27)
[2025-04-16 23:15] LABS: Glucose Negative (Negative)
[2025-04-16 23:25] LABS: C & S Indicated? No; RBC 0-2 HPF (0-2)
[2025-04-17] VITALS (7 sets, daily range): BP systolic 90–131; BP diastolic 53–62; PULSE 55–64; RESP 15–16; TEMP 36–36.9; O2SAT 96–98
[2025-04-17] MEDS: Pantoprazole 40 MG TABCR PO (06:07)
[2025-04-17 06:31] LABS: HCT 39.6 % (36.0-46.0); HGB 13.2 g/dL (11.2-15.7); MCH 31.2 pg (27.0-33.0); MCHC 33.3 % (32.0-36.0); MCV 94 fL (80-95); MPV 9.7 fL (8.0-11.0); Platelet Count 197 10^3/uL (130-400); RBC 4.23 10^6/uL (3.93-5.22); RDW 14.0 % (11.7-14.6); RDW-SD 48.1 fL; WBC 5.86 10^3/uL (4.4-10.8)
[2025-04-17 06:50] LABS: Albumin 3.4 g/dL (3.4-5.0); Alkaline Phosphatase 73 U/L (46-116); BUN 21 mg/dL (7-18); Bilirubin, Total 0.7 mg/dL (0.2-1.0); Calcium 8.7 mg/dL (8.5-10.1); Estimated GFR 66.26 (mL/min/1.73m2); Glucose 85 mg/dL (74-106); Sodium 141 mmol/L (136-145); Total Protein 6.8 g/dL (6.4-8.2)
[2025-04-17 06:51] LABS: ALT 21 U/L (14-59); AST 14 U/L (15-37); Anion Gap 10.4 mmol/L (3-11); CO2 26.6 mmol/L (21.0-32.0); Chloride 104 mmol/L (98-107); Magnesium 2.1 mg/dL (1.8-2.4); Potassium 3.4 mmol/L (3.5-5.1)
--- NOTE | 2025-04-17 08:04 | RESPIRATORY ---
Spoke with pt about MEHUL diagnosis and pt advised she hasn't used her [employer] BiPAP since her cancer diagnosis. Pt does not use supplemental O2 at night.
--- NOTE | 2025-04-17 08:57 | W.PM.PROGNOT ---
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 Improving RLE weakness MRI and echocardiogram pending on 818 AM Ongoing PT:Home with outpatient PT as per evaluation Ongoing telemetry SB HR 57 Hx of prior falls, prior fatigue episodes Lipid panel pending (2) History of pulmonary embolism: Assessment and plan: Hx of PE prior to 2022 PE treated at [facility] as per H&P On chronic Xarelto (3) Anticoagulant long-term use: Assessment and plan: Continue home dose of Xarelto (4) Temporal arteritis: Status: Acute Assessment and plan: Continue steroids as below (5) Current chronic use of systemic steroids: Status: Acute Assessment and plan: Mild hyperglycemia A1C 5.8- management as per PCP f/u Continue home dose of steroids -prednisone 5 mg PO daily (6) Chronic hypokalemia: Status: Acute Assessment and plan: Continue home K supplementation as per home dose (7) ILD (interstitial lung disease): Status: Acute Assessment and plan: Home regimen held initially , PRN duonebs Emphysematic changes on imaging report- home ACS Will resume home regimen to prevent exacerbation (8) History of squamous cell carcinoma: Status: Acute Assessment and plan: Invasive of the mouth non- metastatic as per PET CT from 02/2024 - chemo completed 05/2024- patient stating that she is in remission (9) GERD (gastroesophageal reflux disease): Status: Chronic Assessment and plan: Continue home protonix (10) Hypokalemia: Status: Acute Assessment and plan: K 3.4 - supplementation provided BMP in AM (11) Benign essential hypertension: Status: Acute Assessment and plan: Was on amlodipine, losartan at home will hold for permissive HNT - SBP read in the ED 80 Give for SBP >[address] Sauceda Subjective Subjective Patient reports: no new complaints (still reporting RLE weakness, bilat feet tingling), tolerating liquids well, tolerating a regular diet, voiding w/o difficulty and no bowel movement; denies diarrhea, nausea, vomiting, shortness of breath or fever Exam Narrative Exam Narrative: 75 yo female patient looking of stated age. Alert and oriented X4, cranial nerve II-XII intact, RUE trivial weakness to resistance, RLE improved weakness, clear lungs , S1, S2 no murmur, PPPX4, abdomen is non-acute - bowel sounds are present, no CVA tenderness Objective Last Vital Signs Temp 36.6 C 04/17/25 07:21 Pulse 55 L 04/17/25 07:21 Resp 16 04/17/25 07:21 BP 127/58 L 04/17/25 07:21 Pulse Ox 97 04/17/25 07:21 Laboratory Results - last 24 hr 04/16/25 04/16/25 04/16/25 16:30 17:20 19:20 WBC 6.42 RBC 4.61 Hgb 14.0 Hct 43.0 MCV 93 MCH 30.4 MCHC 32.6 RDW 13.9 Plt Count 210 MPV 9.7 Immature Gran % 0.9 Neutrophils % 74.9 Lymphocytes % 14.0 Monocytes % 9.7 Eosinophils % 0.0 Basophils % 0.5 Nucleated RBC % 0.0 Absolute Neutrophils 4.81 Absolute Lymphocytes 0.90 L Absolute Monocytes 0.62 Absolute Eosinophils 0.00 Absolute Basophils 0.03 PT 10.2 INR 1.0 Sodium 140 Potassium 4.1 Chloride 102 Carbon Dioxide 24.6 Anion Gap 13.4 H BUN 31 H Creatinine 1.2 H Est GFR (CKD-EPI 2020) 46.91 Glucose 110 H Calcium 9.8 Magnesium 2.1 Total Bilirubin 0.5 AST 18 ALT 24 Alkaline Phosphatase 89 Troponin I 9 Cancelled 9 Total Protein 8.0 Albumin 4.1 Urine Color Urine Clarity Urine pH Ur Specific [place] Urine Protein Urine Ketones Urine Blood Urine Nitrite Urine Bilirubin Urine Urobilinogen Ur Leukocyte Esterase Urine RBC Urine WBC Ur Epithelial Cells Urine Crystals Urine Bacteria Urine Casts Urine Mucus Urine Other Ur Culture Indicated? Urine Glucose 04/16/25 04/17/25 23:00 06:06 WBC 5.86 RBC 4.23 Hgb 13.2 Hct 39.6 MCV 94 MCH 31.2 MCHC 33.3 RDW 14.0 Plt Count 197 MPV 9.7 Immature Gran % Neutrophils % Lymphocytes % Monocytes % Eosinophils % Basophils % Nucleated RBC % Absolute Neutrophils Absolute Lymphocytes Absolute Monocytes Absolute Eosinophils Absolute Basophils PT INR Sodium 141 Potassium 3.4 L Chloride 104 Carbon Dioxide 26.6 Anion Gap 10.4 BUN 21 H Creatinine 0.9 Est GFR (CKD-EPI 2020) 66.26 Glucose 85 Calcium 8.7 Magnesium 2.1 Total Bilirubin 0.7 AST 14 L ALT 21 Alkaline Phosphatase 73 Troponin I Total Protein 6.8 Albumin 3.4 Urine Color Yellow Urine Clarity Clear Urine pH 7.0 Ur Specific [place] 1.015 Urine Protein Negative Urine Ketones Negative Urine Blood Negative Urine Nitrite Positive H Urine Bilirubin Negative Urine Urobilinogen 0.2 Ur Leukocyte Esterase Negative Urine RBC 0-2 Urine WBC 3-5 Ur Epithelial Cells Rare Urine Crystals Negative Urine Bacteria Many Urine Casts Negative Urine Mucus Negative Urine Other Rare Transitional Ur Culture Indicated? No Urine Glucose Negative Time Spent with Patient Time Spent with Patient: >50 minutes Time was spent: preparing to see the patient(eg.review tests), obtaining and/or reviewing separately otained hiistory, ordering medications,tests, procedures, referring, communicating with other health acute care assistant, indepentently interpreting results, counseling the patient and care coordination
[2025-04-17] MEDS: Losartan 50 MG TAB PO (09:07)
[2025-04-17] MEDS: Citalopram 20 MG TAB 40 MG PO (09:07)
[2025-04-17] MEDS: amLODIPine 5 MG TAB 10 MG PO (09:07)
[2025-04-17] MEDS: Magnesium Oxide 400 MG TAB 200 MG PO ×2 (09:07→20:03)
[2025-04-17] MEDS: Potassium Chloride 10 MEQ CAPCR PO (09:08)
[2025-04-17] MEDS: Aspirin 81 MG CHEW PO (09:08)
[2025-04-17] MEDS: Potassium Chloride 20 MEQ TABCR PO (09:11)
[2025-04-17] MEDS: Normal Saline Flush 10 ML SYR IVP ×2 (09:12→20:03)
--- NOTE | 2025-04-17 11:15 | IN_ITS ---
PT Notes Visit Reasons: TIA (cardiology) Physical Therapy Inpatient Initial Evaluation Date: 04/17/2025 Referring Doctor: Dr. Knott PT Orders: PT CONSULT: PT evaluation Precautions: Fall, standard IV access right upper extremity Patient Profile/Admitting Diagnosis: Patient is a 75-year-old female who prese nted to the ED from PCP office on 1 day after episode of loss of balance/near fall in which her caught her. At time of incident patient noted right-sided weakness and numbness. Patient reported most of the symptoms resolved within minutes however continued with weakness and right sided face numbness so she called her PCP. Patient had also been seen in her PCPs office on 04/02 for fatigue found to be low potassium and hypoglycemic at that time. She also sustained a fall on 04/04/2025 she presented to the ED and was discharged to home at that time patient sustained injury to right wrist and was given a cock up splint. Patient's BPs in the ED 150s over 50s EKG was normal sinus rhythm CT/CTA of head and neck no acute findings with presentation of old left cerebellar infarct. [facility] teleneuro consult recommended admit for observation perform MRI and echo. PMHX: [] Social History/Home Situation: Patient resides in single-family home with her 3 steps to enter. Patient reports independent ADLs and ambulation without assistive device. Since beginning of April patient was instructed to utilize a walker by her PCP however patient has not consistently used it. Patient independent ADLs Equipment Owned/DME: Walker, right cock up splint Subjective: On initial presentation patient reported no numbness to face or right side of body. Patient states it is difficult to use a walker when sweeping the floor. patient reports she has a walk-in shower with seat And hand-held shower unit. Patient reports elevated seat height on toilet. objective: [] General Observation: Female presenting reclined in bed with and daughter visiting. No facial droop noted Mental Status: Alert and oriented x 4, cooperative, able to follow instructions agreeable to participate Pain: Low back pain chronic 2/10, right hip 2/10 ROM: [] Right Upper Extremity: WFL Left Upper Extremity: WFL Right Lower Extremity: WFL Left Lower Extremity: WFL Strength: [] Right Upper Extremity: 3/5 grossly fair grasp Left Upper Extremity: 5/5 strong grasp Right Lower Extremity:Hip flexion: 3/5; hip abduction: 3 -/5; hip extension: 3 - /5; knee extension: 3/5; knee flexion: 3/5 ankle DF: 3/5 ; ankle PF: 3/5 Left Lower Extremity: Hip flexion 3+/5, hip abduction 3/5, hip extension 3/5; knee extension 3+/5; knee flexion 3/5; ankle 4/5 Sensation: Intact to light touch deep pressure kinesthetic awareness intact proprioceptive intact Coordination: Diminished rapid alternating movements right upper extremity decreased accuracy and speed decreased accuracy with [id number] on right due to weakness right upper extremity; alternating toe tapping no deficits; [id number] difficulty performing on right may be related to need for right ASHLEY Bed Mobility/Transfers: [] Supine to sit independent Sit to stand SBA with cues for hand placement to push out Stand to sit SBA with cues to reach back Bed to chair SBA with FWW cues for safe approach to surface Gait: Ambulated 12 feet with FWW CGA reciprocal pattern decreased step length. Distance limited due to patient's report of onset of face numbness. Nurse notified BP taken 112/72, heart rate 56, O2 sat 97% Balance: [] Static Sitting: Normal Dynamic Sitting: Good Static Standing: Good with FWW Dynamic Standing: Fair plus with FWW Special Tests: Mobility Limitations Standardized Measure [] [facility] 6 clicks Basic Mobility Inpatient Short Form: [] Raw Score: 20 CMS Score: 35.83% Informed Consent/Education: Patient instructed in purpose of PT consult. Assessment: Shelbi is a 75-year-old female demonstrating impaired right upper and lower extremity strength and intermittent facial numbness right-sided with onset after standing. Patient assessment limited due to onset of right-sided numbness. Patient presents with clinical signs and symptoms consistent with current/admitting diagnoses that have resulted to mobility limitations, gait instability, generalized weakness, and impairment of motor control as demonstrated by the following impairment level findings: 1. Decreased strength/motor control RUE/RLE major muscle groups 2. Impaired standing balance 3. Pain low back and right hip 4. Impaired functional activity tolerance 5. Decreased safety awareness/requires cues for hand placement Impairments are contributing to the following functional limitations: 1. Inability to safely ambulate without assistive device 2. Increase completion time for mobility ADL performance 3. Increased fall risk 4. Difficulty performing stairs without assistance Patient is assessed as a moderate complexity based on the following: History: 75-year-old female with impairment level findings, functional limitations, and past medical history as indicated above Examination: Demonstrable impairment in strength, balance, and mobility level with underlying impairments and functional limitations as documented above Presentation: [] Evolving Decision Making: Moderate Goals: 1. Modified independent transfers with least restrictive device 2. Modified independent ambulation with least restrictive device greater than 300 feet Without loss of balance or onset of numbness sensation 3. Supervision 3 steps with rail to safely enter and exit home Plan of Care/Treatment Plan: 1-2x/day, 7 days/week x 1 week. Plan of care has been reviewed with the SMOCKER providing the service under Physical Therapy direction. Initiate Physical Therapy intervention for strengthening, bed mobility, transfers, gait, stairs, balance training, use of assistive device. DISCHARGE RECOMMENDATIONS: Home with outpatient PT TREATMENT CODE/TIME: 77413,99874/103 4?1 113 Thank you for the opportunity to participate in the care of this patient. Lesli Ludwig, PT [facility]
[2025-04-17 11:20] LABS: Calculated LDL 63 mg/dL (<100); Cholesterol 157 mg/dL (<200); HDL Cholesterol 59 mg/dL (>or=50); Triglyceride 176 mg/dL (<150)
--- NOTE | 2025-04-17 11:31 | INITIAL_ITS ---
Date of service: 04/17/25 Time of Service: 11:31 Care Management Initial Assmt Initial Assessment Reason for Hospitalization: TIA Functional Status/Living Situation Patient Presentation: Shelbi presented to the ED yesterday evening reporting that earlier in the day she had an episode of right sided weakness and numbness, which caused her to fall. Her weakness and numbness improved significantly after a few minutes, but she remained weak on the right side. Shelbi stated that her prevented the fall, and no trauma was incurred. She denied headache, but stated that the rights side of her head feels atypical. Shelbi was sitting up in bed, watching TV, when CM met with her earlier today. She was very pleasant. She still was not feeling great, so we kept our conversation a little short. Shelbi is feeling tired, and just not right. She was very scared last night when she could not feel the whole right side of her body. Shelbi is aware that her MRI and echo can not be performed until Saturday. PT has recommended outpatient therapy, but neither Shelbi nor her drive, so we will refer to for PT and OT, per her request. Town of Residence: [place] Resides with: Spouse (Holger) Significant Other/Family: Local (children Emily, Jareth and Rob and their families. 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.) Instrumental Activities of Daily Living (ADLs): Independent Medications Medication Management: No Issues/Barriers identified Advance Directives Advance Directives: Do you have an Advance Directive: N , 10:40 AD On File at [facility]: N 08/06/23, 10:40 Date Asked 04/16/25 04/16/25, 16:03 AD Date Reviewed COLST On File at [facility] No 04/16/25, 16:03 COLST Date Scanned Code Status Resuscitation Status Full Code Insurance Coverage/Financial Issues Insurance: Medicare Part A & B [facility] Care Team Visit Care Team Role Provider Type Eli Polanco APRN Primary Care Provider NURSE PRACTITIONER InPatient [facility] Other Providers OTHER Danika Dixon MD Emergency Provider [facility] STAFF PHYSICIAN René Knott MD Admit Provider [facility] STAFF PHYSICIAN Attending Provider Discharge Potential Discharge Needs: Imaging/labs (brain MRI and cardiac echo with bubbles - unable to be done until Thursday 04/19) and PCP F/U Appt Anticipated Barriers to Discharge: None Identified Patient/Family Education Needs: Review discharge instructions, discuss Ask Me Three Transportation: Private vehicle Plan: Anticipate that Shelbi will be discharged with new services of RN, PT for strengthening and balance, and OT for her right wrist. Shelbi will f/u with her PCP, and may have other follow ups depending on results of testing. CM will continue to follow and update the plan as needed. Social Determinants of Health Screening Will the Patient Participate in the Screening?: Declined to provide PFSH All Active Problems (Updated 04/17/25 @ 13:13 by Aura Palma APRN) History of squamous cell carcinoma (Acute) Chronic hypokalemia (Acute) Current chronic use of systemic steroids (Acute) TIA (transient ischemic attack) (Acute) Dizziness (Acute) Laceration of face (Acute) Head injury (Acute) Contusion of rib (Acute) Muscle strain of right wrist (Acute) Abnormal laboratory test (Acute) Dry eye syndrome (Acute) Follow-up exam (Acute) Stroke (Chronic) Neck muscle strain (Acute) Double vision (Acute) Mild protein-calorie malnutrition (Acute) Serum calcium elevated (Acute) At risk for osteoporosis (Acute) Prednisone, Chemo/Radiation (2023) Loss of eyelashes (Acute) Cancer of oral cavity (Acute) [facility] code from 04.29.24 note.HE Cancer related pain (Acute) 04/08/24 [facility] Hem/Onc note Dysphagia (Acute) 04/08/24 [facility] Hem/Onc note 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 Pure hypercholesterolemia (Acute) Referred otalgia of left ear (Acute) Giant cell arteritis (Acute 2008) Recurrence of symptoms 10/2022 ILD (interstitial lung disease) (Acute) Facial numbness (Acute) chin, @ region resting on PFT equipment TMJ inflammation (Acute) from clenching? positioning? during PFT (~05/22/23) Lip pain (Acute) inner lip pain, into left inner cheek (apthous ulcer? thrush? referred jam/TMJ pain?) Pain in lower jaw (Acute) MEHUL treated with BiPAP (Acute) Bronchiectasis (Acute) Dyspnea on exertion (Acute) Pulmonary emphysema (Acute) Benign essential hypertension (Acute 04/10/13) Fall (Acute) Diarrhea (Acute) Prediabetes (Acute) 10/2022: 5.9 .. 09/2021: 5.7.. Bronchitis (Acute) Hearing loss, bilateral (Acute) Fatigue (Acute) feeling lazy, but chemo? rad? cancer + post fx back Discharged from [facility] 05/19: Encephalopathy and UTI - Ciprofloxacin, magnesium Seen at [facility] ED 05/21: Fall, rib contusion, fracture right great toe - Can wear postop shoe and tape toe to next toe-- Pt reports she is getting better everyday and goes to the cancer center daily for treatment-- Macrocytosis (Acute) Hypokalemia (Acute) PAD (peripheral artery disease) (Chronic) focal rt common iliac artery stenosis per CARD notes, ID in 2019 Peripheral vascular disease (Chronic) Orthostasis (Acute) Temporal arteritis (Acute) Depressive disorder, not elsewhere classified (Acute 10/12/11) Esophageal reflux (Acute 12/10/12) EGD 05/25/13 KD: mild antritis and distal esophagitis; int metaplasia, no dysplasia Allergic rhinitis, unspecified (Acute 12/10/12) Leukoplakia of oral cavity (Acute) Anxiety and depression (Chronic) GERD (gastroesophageal reflux disease) (Chronic) Medical History Acute UTI VTE (venous thromboembolism) 04/08/24 [facility] Hem/Onc note Primary osteoarthritis of right hip Periodic limb movement disorder Primary osteoarthritis of left knee (~07/2023) Rheumatology Trigeminal neuralgia of left side of face questionable -- was this the oral cancer? Other pulmonary embolism without acute cor pulmonale (Unknown) Massive PE, Apr 08, 2022 per pt report .. [facility] note 04/16/23.HE Former smoker quit 23 yrs ago! Neoplasm of unspecified behavior of bone, soft tissue, and skin Lumbago (12/10/12) Osteoarthritis DJD (degenerative joint disease) Anticoagulant long-term use Xarelto.. Hx Eliquis, PE, 2019 Polymyalgia rheumatica (10/12/11) Urinary bladder incontinence (~04/2024) 04/27/24 intermittent and U/A done at [facility] Hem/Onc Buccal mass Primary hypertension Hx of adenomatous colonic polyps (~05/2019) villous adenoma History of pulmonary embolism Pulmonary embolism 2019 .. Eliquis, then Xarelto.. Diverticulosis 05/12/[address] Mariela Arizmendi, [facility] Colon polyps Abnormal colonoscopy (11/11/15) 11/11/15 Dr Brizuela, sessile serrated adenoma, repeat 3 years. mg Adenomatous colon polyp 11/11/15 Dr Brizuela, sessile serrated adenoma, repeat 3 years. mg Benign paroxysmal vertigo (10/12/11) Midline cystocele (12/10/12) pt. unsure Obstructive sleep apnea (adult) (pediatric) (01/19/13) Stopped BIPAP, 2019. severe, Dr. Greer, on auto Bi-Level bipap Obesity (12/10/12) Restless legs (01/19/13) Dr. Greer Sensorineural hearing loss, bilateral (06/03/14) Tinnitus (06/03/14) Vertigo (06/03/14) Serrated polyp of colon (11/11/15) Hyperlipemia Surgical History Status post gastrostomy tube placement, follow-up exam (~03/26/24) History of temporal artery biopsy Hx of colonoscopy History of cardiac cath Hysterectomy, Laproscopic Bilateral salpingectomy with oophorectomy (~12/2006) Family History Sister Cancer Breast cancer Father Heart disease Mother Heart disease Brother Heart disease [place] Social History Smoking/Tobacco Use Status: Former Tobacco Use Quit Date: 09/02/99 Tobacco: How many years used: 20 Smoking risk assessment performed?: Yes Alcohol Intake: former Drug use: Never Substance use type: does not use Adopted: No Caregiver/Support person: No Foster care: No Housing: house Number of Children: 3 number of grandchildren: 4 Communication Needs: Hard of Hearing Education Level: high school current occupation: Retired Pets and animals: Yes Pets and animals: dog(s) Sexually active: No Do you think of yourself as: straight/heterosexual Current gender identity: female What is your relationship status?: How often do you talk on the phone with friends or family?: three or more times per week How often do you get together with friends or relatives?: once per week Do you belong to any clubs or organized social groups?: no Panel score (0-1 are the most socially isolated patients): 2 What type of physical activity do you participate in: none Dilia/Oriental Orthodox: Yarsani Special dilia needs: No Seatbelt use: always Drive intox or ride w/intox reefer 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 She has 3 kids who live close. 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 Anticipated HH Services Anticipated HH Services at Discharge [facility] Needed, OT, PT and RN Anticipated Date of Discharge: 04/19/25. Following Provider: Eli Polanco.
--- NOTE | 2025-04-17 14:01 | PT.INTREAT ---
PT Notes Visit Reasons: TIA (cardiology) Inpatient Physical Therapy Treatment Note [facility] Date: 04/17/2025 PRECAUTIONS: Fall risk, standard, IV access right upper extremity; monitor for signs and symptoms of facial numbness right-sided weakness, telemetry SUBJECTIVE: Patient states numbness has gone away and she was able to eat. Patient reports she is tired and would like to go to bed OBJECTIVE: Patient presented seated in chair with heating pad to low back bilateral lower extremities down tray in front of her? PAIN: 11/09 low back VITALS: ?Monitored via telemetry Therapeutic Activities ([id number][]): Direct one-on-one instruction in dynamic activities to improve functional performance. ?? Provided skilled cues and instruction on performance and technique throughout. ? BED MOBILITY/TRANSFERS? Rolling L/R: Independent? Sit-supine: Supervision? Sit-stand: SBA with cues to push up? Stand-sit: SBA with cues to reach back ? Chair-bed: Contact-guard assist with FWW Ambulation Facilitated safe and correct performance of level surface ambulation covering a distance of 25 feet using use front wheeled walker with contact-guard assist and wheelchair follow for safety. Patient reported slight fuzzy feeling in head. Denied chest pain, throughout activity. Minimal verbal cueing provided for AD management, directional changes, and posture. ASSESSMENT: Patient continues to report sensation right side of face after standing. Nurse aware patient awaiting MRI and echo at this time. Functional mobility limited to short distances due to patient's symptoms PLAN: 1-2x/day, 7 days/week x 1 week. Plan of care has been reviewed with the TOOL HONING MACHINE SET UP OPERATOR providing the service under Physical Therapy direction. Initiate Physical Therapy intervention for strengthening, bed mobility, transfers, gait, stairs, balance training, use of assistive device. TREATMENT CODE/TIME: 97961/1247?1304 DISCHARGE RECOMMENDATION: Home with outpatient PT when medically appropriate
[2025-04-17] MEDS: Rivaroxaban 10 MG TABLET PO (18:16)
[2025-04-17] MEDS: Budesonide/Formoterol 160/4.5 6 GM 60 PUFF INH IH (19:35)
[2025-04-17] MEDS: Gabapentin 300 MG CAP PO (20:03)
[2025-04-17] MEDS: Atorvastatin 40 MG TAB PO (20:03)
[2025-04-18 03:34] VITALS: BP 134/66; PULSE 67; RESP 16; TEMP 36.5; O2SAT 92
[2025-04-18] MEDS: Pantoprazole 40 MG TABCR PO (06:02)
[2025-04-18 06:29] LABS: Abs Immature Grans 0.06 10^3/uL (0.0-0.06); HCT 39.6 % (36.0-46.0); HGB 12.8 g/dL (11.2-15.7); Immature Grans % 0.9 %; MCH 30.0 pg (27.0-33.0); MCHC 32.3 % (32.0-36.0); MCV 93 fL (80-95); MPV 9.6 fL (8.0-11.0); Platelet Count 183 10^3/uL (130-400); RBC 4.26 10^6/uL (3.93-5.22); RDW 14.0 % (11.7-14.6); RDW-SD 47.7 fL; WBC 6.34 10^3/uL (4.4-10.8)
[2025-04-18 06:43] LABS: Anion Gap 11.2 mmol/L (3-11); BUN 21 mg/dL (7-18); CO2 24.8 mmol/L (21.0-32.0); Calcium 9.0 mg/dL (8.5-10.1); Chloride 104 mmol/L (98-107); Estimated GFR 89.58 (mL/min/1.73m2); Glucose 101 mg/dL (74-106); Potassium 4.0 mmol/L (3.5-5.1); Sodium 140 mmol/L (136-145)
[2025-04-18 07:39] VITALS: BP 117/69; PULSE 57; RESP 17; TEMP 36.7; O2SAT 96
[2025-04-18] MEDS: Budesonide/Formoterol 160/4.5 6 GM 60 PUFF INH IH ×2 (07:43→19:31)
[2025-04-18] MEDS: Potassium Chloride 10 MEQ CAPCR PO (08:02)
[2025-04-18] MEDS: Cyanocobalamin 500 MCG TAB 1000 MCG PO (08:02)
[2025-04-18] MEDS: Magnesium Oxide 400 MG TAB 200 MG PO ×2 (08:02→19:30)
[2025-04-18] MEDS: Aspirin 81 MG CHEW PO (08:02)
[2025-04-18] MEDS: Citalopram 20 MG TAB 40 MG PO (08:03)
[2025-04-18] MEDS: Cholecalciferol (Vitamin D3) 1,000 UNIT TAB 2000 UNITS PO (08:03)
[2025-04-18] MEDS: Normal Saline Flush 10 ML SYR IVP ×2 (08:03→19:50)
--- NOTE | 2025-04-18 10:37 | PTTR_ITS ---
PT Notes Visit Reasons: TIA (cardiology) Inpatient Physical Therapy Treatment Note [facility] Date: 04/18/2025 PRECAUTIONS: Fall risk, standard, IV access right upper extremity; monitor for signs and symptoms of facial numbness right-sided weakness, telemetry SUBJECTIVE: AM session: Patient reports she slept well and had a good breakfast and has not had any symptoms of right facial numbness. PM session: Patient reports she has been out of bed since before breakfast and is feeling a little tired but wants to participate in therapy OBJECTIVE: Patient presented seated in chair for both sessions PAIN: 09/11 low back VITALS: ?Monitored via telemetry Therapeutic Activities ([id number]): Direct one-on-one instruction in dynamic activities to improve functional performance. ?? Provided skilled cues and instruction on performance and technique throughout. ? A.m. and p.m. BED MOBILITY/TRANSFERS? Rolling L/R: Independent? Sit-supine independent ? Sit-stand: SBA with cues to push up? Stand-sit: SBA with cues to reach back ? Chair-bed: SBA with FWW,4WW or no device Ambulation AM session Facilitated safe and correct performance of level surface ambulation covering a distance of 75 feet using use front wheeled walker with SBA and wheelchair follow for safety. . Denied chest pain, throughout activity. Patient then ambulated 75 feet without assistive device CGA without loss of balance slightly decreased step length as compared to use of assistive device. Patient then ambulated 75 feet [id number] SBA demonstrating ability to control speed with improved turns. Stairs: AM session 3 4 steps? and 2 6 steps with rails SBA with continuous cues for sequencing step to pattern P.m. session: Facilitated safe and correct performance of level surface ambulation covering a distance of 200 feet without AD with SBA and wheelchair follow for safety. . Denied chest pain, throughout activity. Therapeutic exercise: [id number] -----1 upper extremity support sidestepping at rail 10 steps x 3 reps R/L ---- Hip RPE x 2 sets 5 reps BLE with sit rest between with 1 upper extremity support ---- Standing heel raises x 10 reps upper extremity support ---- Mini squats with 1 upper extremity support x 2 sets 5 reps -1 upper extremity support--marching 2 sets 5 reps R/L ASSESSMENT: Improvement in activity tolerance noted this date. Patient denied symptoms throughout both sessions. Patient with no loss of balance for ambulation without assistive device. Skilled PT indicated for progression with balance retraining including tandem stance and single limb stance next session. Discussed with patient and daughter benefits of outpatient PT if able to arrange for transportation. PLAN: 1-2x/day, 7 days/week x 1 week. Plan of care has been reviewed with the BALLISTIC TECHNICIAN providing the service under Physical Therapy direction. Initiate Physical Therapy intervention for strengthening, bed mobility, transfers, gait, stairs, balance training, use of assistive device. TREATMENT CODE/TIME: First session: [id number] Second session: 59110, [id number] DISCHARGE RECOMMENDATION: Home with HH PT when medically appropriate. Patient does not have transportation to outpatient services at this time
--- NOTE | 2025-04-18 11:36 | W.PM.PROGNOT ---
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 Improving RLE weakness MRI and echocardiogram pending on 04/19 AM PT:Home with outpatient PT as per evaluation telemetry Hx of prior falls, prior fatigue episodes Lipid panel A1C 5.8 LDL 63 (2) History of pulmonary embolism: Assessment and plan: Hx of PE prior to 2022 PE treated at [facility] On chronic Xarelto (3) Anticoagulant long-term use: Assessment and plan: Continue home dose of Xarelto (4) Temporal arteritis: Status: Acute Assessment and plan: Continue steroids as below (5) Current chronic use of systemic steroids: Status: Acute Assessment and plan: Mild hyperglycemia A1C 5.8- management as per PCP f/u Continue home dose of steroids -prednisone 5 mg PO daily (6) Chronic hypokalemia: Status: Acute Assessment and plan: Continue home K supplementation as per home dose (7) ILD (interstitial lung disease): Status: Acute Assessment and plan: Home regimen held initially , PRN duonebs Emphysematic changes on imaging report- home ACS Will resume home regimen to prevent exacerbation (8) History of squamous cell carcinoma: Status: Acute Assessment and plan: Invasive of the mouth non- metastatic as per PET CT from 02/2024 - chemo completed 05/2024- patient stating that she is in remission (9) GERD (gastroesophageal reflux disease): Status: Chronic Assessment and plan: Continue home protonix (10) Hypokalemia: Status: Acute Assessment and plan: K 3.4 - supplementation provided BMP in AM (11) Benign essential hypertension: Status: Acute Assessment and plan: Was on amlodipine, losartan at home will hold for permissive HNT - SBP read in the ED 80 Give for SBP >[address] Sauceda Subjective Subjective Patient reports: no new complaints, feels better, tolerating liquids well, tolerating a regular diet and afebrile Interval history since last seen: working with PT, safely reambulating. still having some minimal right sided weakness Exam Narrative Exam Narrative: Elderly female older than stated age no acute distress sitting up in her recliner her eyes are nonicteric noninjected oral mucosas moist facial features are symmetrical left eye disconjugate cardiovascular regular rate and rhythm respirations even and unlabored abdomen soft moves all extremities equally trace weakness on the right upper and lower extremity neurologic she is awake alert oriented cranial nerves II through XII grossly intact psychiatric appropriate mood and affect Objective Last Vital Signs Temp 36.7 C 04/18/25 07:39 Pulse 57 L 04/18/25 07:39 Resp 17 04/18/25 07:39 BP 117/69 04/18/25 07:39 Pulse Ox 96 04/18/25 07:39 Laboratory Results - last 24 hr 04/18/25 06:01 WBC 6.34 RBC 4.26 Hgb 12.8 Hct 39.6 MCV 93 MCH 30.0 MCHC 32.3 RDW 14.0 Plt Count 183 MPV 9.6 Immature Gran % 0.9 Neutrophils % 66.1 Lymphocytes % 17.4 Monocytes % 15.0 Eosinophils % 0.0 Basophils % 0.6 Nucleated RBC % 0.0 Absolute Neutrophils 4.19 Absolute Lymphocytes 1.10 L Absolute Monocytes 0.95 H Absolute Eosinophils 0.00 Absolute Basophils 0.04 Sodium 140 Potassium 4.0 Chloride 104 Carbon Dioxide 24.8 Anion Gap 11.2 H BUN 21 H Creatinine 0.7 Est GFR (CKD-EPI 2020) 89.58 Glucose 101 Calcium 9.0 Time Spent with Patient Time Spent with Patient: 35-49 minutes Time was spent: preparing to see the patient(eg.review tests), obtaining and/or reviewing separately otained hiistory, ordering medications,tests, procedures, indepentently interpreting results and counseling the patient
[2025-04-18 11:37] VITALS: BP 105/56; PULSE 65; RESP 17; TEMP 36.5; O2SAT 98
--- NOTE | 2025-04-18 15:01 | CMPROGNOTE_ITS ---
Date of service: 04/18/25 Time of Service: 15:01 Care Management Progress Note Progress Note Text Progress Note Text: Shelbi is doing really well today. She has been working with PT, and is feeling a bit better. CM completed AD with Shelbi today. Her AD was sent via email to the [place] AD registry by this CM. Shelbi was also given the patient assistance application, and she intends to fill it out. Referral was also sent to [facility] [employer], with Shelbi's approval. She and her could use some assistance with fuel costs. Discharge Potential Discharge Needs: Imaging/labs (MRI and echocardiogram pending on 818 AM ) and PCP F/U Appt Anticipated Barriers to Discharge: None Identified Patient/Family Education Needs: Review discharge instructions, discuss Ask Me Three Transportation: Private vehicle Plan: Anticipate that Shelbi will be discharged with new services of PT for str engthening and balance, and OT for her right wrist. Shelbi will f/u with her PCP, and may have other follow ups depending on results of testing. CM will continue to follow and update the plan as needed. Social Determinants of Health Screening Will the Patient Participate in the Screening?: Declined to provide
[2025-04-18 15:15] VITALS: BP 114/56; PULSE 60; RESP 17; TEMP 36.5; O2SAT 97
[2025-04-18] MEDS: Rivaroxaban 10 MG TABLET PO (16:56)
[2025-04-18 19:28] VITALS: BP 131/73; PULSE 59; RESP 18; TEMP 36.1; O2SAT 95
[2025-04-18] MEDS: Gabapentin 300 MG CAP PO (19:30)
[2025-04-18] MEDS: Atorvastatin 40 MG TAB PO (19:30)
[2025-04-19 05:40] VITALS: BP 108/63; PULSE 60; RESP 20; TEMP 36.7; O2SAT 95
[2025-04-19] MEDS: Pantoprazole 40 MG TABCR PO (05:40)
--- NOTE | 2025-04-19 07:00 | DI.MRI_ITS ---
Exam(s) MR BRAIN WO EXAM: MR BRAIN WO CLINICAL HISTORY: TIA TECHNIQUE: Multiplanar multisequence MRI of the brain was performed. COMPARISON: MR MR BRAIN WO from 12/31/2024 FINDINGS: CEREBRAL PARENCHYMA: There is no evidence of intracranial hemorrhage, mass effect, or shift of midline structures. There are no extra-axial fluid collections. Ventricles are not enlarged or shifted. Again noted are the previously described small lacunar infarcts in both cerebellar hemispheres, unchanged. The previously described signal abnormality both sides of the bernabe is also unchanged. There is abundant bilateral periventricular FLAIR bright signal abnormality again noted, exhibiting minimal if any significant change when compared to the prior MRI scan of December 2024. these foci of signal abnormality are not associated with hemorrhage, surrounding edema, nor restricted diffusion. There is no significant focal signal abnormality evident on diffusion imaging to suggest acute ischemic event. PITUITARY GLAND: No mass nor parasellar abnormality. No obvious abnormality in the cavernous sinuses. FLOW VOIDS: The expected flow void are noted. No evidence of obvious aneurysm nor obvious vascular malformation. PARANASAL SINUSES: Mild mucosal thickening in left maxillary sinus. This is unchanged from 12/31/2024. Other paranasal sinuses appear unremarkable. The size of the left mastoid effusion is slightly smaller than previous. Right mastoid air cells remain unremarkable. ORBITS: Previous bilateral cataract surgery. No other intraluminal findings. IMPRESSION: No significant acute intracranial findings on this noninfused MRI scan of the brain. Chronic white matter ischemic sequelae are again noted in both cerebellar hemispheres as well as in the bilateral periventricular white matter, unchanged from MRI scan of 12/31/2024. No areas of restricted diffusion to suggest acute ischemic event. Some fluid is noted in the left mastoid air cells but less than was evident on the 12/31/2024 study. DATA REPOSITORY:
[2025-04-19 07:31] VITALS: BP 129/65; PULSE 53; RESP 18; TEMP 36; O2SAT 98
[2025-04-19] MEDS: Cyanocobalamin 500 MCG TAB 1000 MCG PO (07:32)
[2025-04-19] MEDS: Cholecalciferol (Vitamin D3) 1,000 UNIT TAB 2000 UNITS PO (07:32)
[2025-04-19] MEDS: Magnesium Oxide 400 MG TAB 200 MG PO (07:32)
[2025-04-19] MEDS: Potassium Chloride 10 MEQ CAPCR PO (07:34)
[2025-04-19] MEDS: Citalopram 20 MG TAB 40 MG PO (07:34)
[2025-04-19] MEDS: Aspirin 81 MG CHEW PO (07:34)
[2025-04-19] MEDS: Normal Saline Flush 10 ML SYR IVP (07:35)
[2025-04-19] MEDS: Budesonide/Formoterol 160/4.5 6 GM 60 PUFF INH IH (08:17)
--- NOTE | 2025-04-19 10:05 | W.NUTRFU ---
Date of service: 04/19/25 Time of Service: 10:57 Nutrition Note NOTE: 75yo female living at home with . Being treated for TIA, temporal arteritis, hypokalemia, ILD. PMH also includes GERD, essential HTN, chronic low K, squamous cell carcinoma, DMII. weight loss noted in chart - about 8kg in the last 12 months. No diabetes meds at home. on chronic steroids. 04/16/25 A1C was 5.8%. Ordered for regular diet with fair to good intake. FPG 101 yesterday. electrolytes pending. Have been looking fine - K was 4.0 yesterday. Pt not in room upon visit -down at MRI. Will follow up on wt loss note above to see if this was intentional or not and further assess from there. Will monitor intake, nutrition-related labs, weight. Time Spent in Nutritional Counseling and Treatment: 0
--- NOTE | 2025-04-19 11:44 | PDOC.CMDIS ---
Date of service: 04/19/25 Time of Service: 11:44 LACE Index Scoring Tool Questions: Length of Stay (in days): 3 Was the patient admitted via the E.D.?: Yes Comorbidities: Cerebrovascular Disease and Any Tumor E.D. Visits: 3 Answers: Total Score: 12 Risk of Readmission: High Risk Care Management Discharge Plan Reason for Hospitalization: r/o TIA Discharge Plan: Shelbi is discharging home today with new services of PT and OT. She will f/u with her PCP and continue per her plan of care. Shelbi will transport home with her . Patient/Family Education Needs: Review of discharge instructions, activity, limitations, and discuss ask me 3. Services Needed at Discharge: Home Health Care Services (new PT and OT)
--- NOTE | 2025-04-19 12:13 | W.PM.DS.N ---
Date of service: 04/19/25 Time of Service: 12:13 DS: Diagnosis Discharge Diagnosis (1) TIA (transient ischemic attack): Status: Acute (2) Temporal arteritis: Status: Acute (3) Current chronic use of systemic steroids: Status: Acute (4) Chronic hypokalemia: Status: Acute (5) ILD (interstitial lung disease): Status: Acute (6) History of squamous cell carcinoma: Status: Acute (7) GERD (gastroesophageal reflux disease): Status: Chronic (8) Hypokalemia: Status: Acute (9) Benign essential hypertension: Status: Acute Discharge Plan Disposition Patient Disposition: Home W/Home Health Services Condition: Improving Discharge Details Reason For Visit: TIA Admit Date/Time: 04/16/25 20:17 Admit Provider: René Knott Attending Provider: René Knott Primary Care Provider: Eli Polanco Hospital Course Hospital Course: This 75 year old female patient with a past medical history significant for massive 2021 PE on rivaroxaban, 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 The fall was non injurious and was preceded by weakness and numbness along the right side of her leg, arm and torso. Symptoms largely resolved within minutes, however she continued to have some weakness and her right face started to be slightly numb, so she went to her PCP who sent her to the ED. She also fell on April 04 and was seen in the ED. She saw her PCP April 02 for fatigue found to be due to hypokalemia and hypoglycemia. In the ED, BP elevated 150's / 50's, otherwise vitals unremarkable. NSR on EKG. Labs significant only for mildly increased creatinine 1.2 with baseline at 1.0. CT brain / CTA head and neck showed no acute pathology, with evidence of previous left cerebellar infarct and chronic disease. The patient was admitted to the medical surgical floor to the hospitalist service as [place] [facility] [place] for observation, MRI, echo, for TIA - stroke work-up. 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 Lipid panel remarkable for triglycerides at 176 and high intensity statin therapy was increased to maximum dosing, potassium level corrected to 4.0 s/p supplementaion. MRI brain without significant acute intracranial findings or evidence suggestive of acute ischemic event and is similar to imaging from 12/31/24 with improved left mastoid air cells fluid collection; also unchanged mild mucosal thickening in left maxillary sinus.. An echocardigram in 2019 was w/o PFO findings. US Echocardiogram completed with LVEF around 60%,mild mitral, tircuspid and pulmonic valves regurgitation on preliminary report. 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 Recommendations for PCP follow-up: Now on high intensity statin maximal dosing - please f/u labs A1C 5.8, triglycerides 176 Consider neurology referral Follow-up on official echocardiogram report Reporting nightly drinking of 3-4 glasses of wine nightly at 11AM on d/c day- had denied on intake Discussed with Dr. Sauceda [place] Meds and New Rx's Prescriptions: New atorvastatin 40 mg Tablet 80 mg PO QPM Qty: 60 0RF Continued gabapentin 300 mg capsule 300 mg PO QHS Qty: 90 3RF magnesium oxide 200 mg magnesium tablet 200 mg PO BID Qty: 60 3RF neomycin-polymyxin B-dexameth 3.5 mg/g-10,000 unit/g-0.1 % ointment 1 applic ophthalmic (eye) BID Rx Instructions: Left eye potassium chloride 10 mEq capsule, extended release 10 meq PO DAILY Qty: 90 3RF losartan 50 mg tablet 50 mg PO DAILY Patient Comments: [facility] [place] 04/18/23 Dr. Monreal.HE chlorhexidine gluconate [Paroex Oral Rinse] 0.12 % mouthwash 15 ml mucous membrane BID Qty: 300 0RF Rx Instructions: Trial mouth cleaning rinse x1 week; STOP if it stings albuterol sulfate 90 mcg/actuation HFA aerosol inhaler 1 puff INHALATION Q6H PRN PRN (Reason: shortness of breath or wheezing) Qty: 6.7 1RF Rx Instructions: as best dispensed per insurance budesonide 0.25 mg/2 mL suspension for nebulization 0.25 mg inhalation BID Qty: 60 6RF budesonide-formoterol [Symbicort] 160-4.5 mcg/actuation HFA aerosol inhaler 2 puff inhalation BID Qty: 10.2 6RF diclofenac sodium 3 % gel 1 applic topical BID Qty: 100 0RF acetaminophen [Tylenol] 325 MG tablet 650 mg PO Q6H PRN PRN ipratropium-albuterol 0.5 mg-3 mg(2.5 mg base)/3 mL solution for nebulization 3 ml inhalation Q6H PRN (Reason: shortness of breath or wheezing) Qty: 180 1RF amlodipine 5 mg tablet 10 mg PO DAILY Qty: 180 3RF cyanocobalamin (vitamin B-12) 1,000 mcg tablet See Rx Instructions .ROUTE .COMPLEX Qty: 90 3RF Dose Instruction: TAKE ONE TABLET BY MOUTH EVERY DAY Rx Instructions: TAKE ONE TABLET BY MOUTH EVERY DAY citalopram 40 mg tablet 40 mg PO DAILY Qty: 90 3RF hydroxyzine HCl 25 mg tablet 25 mg PO BID PRN (Reason: Worry, Anxiety, Nausea) Qty: 30 2RF Rx Instructions: Trial for anxiety cholecalciferol (vitamin D3) 50 mcg (2,000 unit) capsule See Rx Instructions .ROUTE .COMPLEX Qty: 90 3RF Dose Instruction: TAKE ONE CAPSULE BY MOUTH EVERY DAY Rx Instructions: TAKE ONE CAPSULE BY MOUTH EVERY DAY prednisone 5 mg tablet See Rx Instructions .ROUTE .COMPLEX Qty: 90 1RF Dose Instruction: TAKE ONE TABLET BY MOUTH EVERY DAY Rx Instructions: TAKE ONE TABLET BY MOUTH EVERY DAY pantoprazole 40 mg tablet,delayed release (DR/EC) See Rx Instructions .ROUTE .COMPLEX Qty: 90 2RF Dose Instruction: Take 1 tablet by mouth every day Rx Instructions: Take 1 tablet by mouth every day Xarelto 10 mg tablet 10 mg PO DAILY Qty: 90 1RF aspirin 81 mg capsule 81 mg PO DAILY Discontinued atorvastatin 40 mg tablet See Rx Instructions .ROUTE .COMPLEX Qty: 90 2RF Dose Instruction: Take 1 tablet by mouth every day Rx Instructions: Take 1 tablet by mouth every day Discharge Instructions Referrals: Eli Polanco APRN [Primary Care Provider, Family Practice] Referral Note: Follow-up within 7 days pf discharge please Activity:: Activity as Tolerated Equipment/Supplies:: Walker Diet:: heart healthy Discharge Orders Discharge Orders: Discharge Order (Routine); Ordered 04/19/25 Ordered By: Aura Palma Other Ambulatory Orders: Cardiac Event Recorder (STAT) Timeframe: [id number] Facility: [facility] - Location: Respiratory Therapy Ordered By: Aura Palma DS: Summary Time Spent with Patient providing and/or coordinating discharge services: Greater than 30 minutes Status at Discharge Functional status at discharge: uses cane/walker Overall status at discharge: patient is progressing back to baseline Mental Status: mental status grossly normal Speech and Movement: speech and movement normal Mood: congruent mood Affect: normal affect Exam Narrative Exam Narrative: Elderly female older than stated age without acute distress ; eyes are nonicteric noninjected oral mucosas moist facial features are symmetrical Alert and oriented X4, cranial nerve II-XII intact, trace weakness on the right upper and lower extremity,, clear lungs , S1, S2 no murmur, cardiovascular regular rate and rhythm- telemetry SB HR 57, clear lungs, unlabored breathing,abdomen is non-acute - bowel sounds are present, no CVA tenderness; psychiatric appropriate mood and affect Psych Mental Status: mental status grossly normal Speech and Movement: speech and movement normal Mood: congruent mood Affect: normal affect DS: Data Vitals/I&O Vitals and I&O: Vital Signs Temperature 36 C L 04/19/25 07:31 Temperature Source Skin 04/19/25 07:31 Pulse 53 L 04/19/25 07:31 Pulse Rhythm Regular 04/16/25 21:54 Pulse 61 04/16/25 21:31 Respiratory Rate 18 04/19/25 07:31 Respiratory Effort Normal, Non-Labored 04/16/25 21:54 Respiratory Depth Normal 04/16/25 21:54 Respiratory Pattern Normal 04/16/25 21:54 Blood Pressure 129/65 04/19/25 07:31 Blood Pressure Mean 86 04/19/25 07:31 Blood Pressure Position Sitting 04/16/25 16:02 Pulse Oximetry 98 04/19/25 07:31 Oxygen Delivery Method Room Air 04/19/25 07:31 Oxygen Flow Rate 0 04/19/25 07:31 Pain Level 0 04/18/25 15:15 Intake & Output 04/18/25 04/19/25 04/19/25 23:59 11:59 23:59 Output Total 600 / 1800 400 / 400 Balance -600 / -560 -400 / -400 Output: Urine 600 / 1800 400 / 400 Other: Urine Color Yellow Yellow Urine Appearance Clear Clear Urine Odor None Normal Data Completed and Pending Labs on day of discharge: Labs from last 24 hours 04/19/25 08:17 Sodium Pending Potassium Pending Chloride Pending Carbon Dioxide Pending Anion Gap Pending BUN Pending Creatinine Pending Est GFR (CKD-EPI 2020) Pending Glucose Pending Calcium Pending PFSH All Active Problems (Updated 04/17/25 @ 13:13 by Aura Palma APRN) History of squamous cell carcinoma (Acute) Chronic hypokalemia (Acute) Current chronic use of systemic steroids (Acute) TIA (transient ischemic attack) (Acute) Dizziness (Acute) Laceration of face (Acute) Head injury (Acute) Contusion of rib (Acute) Muscle strain of right wrist (Acute) Abnormal laboratory test (Acute) Dry eye syndrome (Acute) Follow-up exam (Acute) Stroke (Chronic) Neck muscle strain (Acute) Double vision (Acute) Mild protein-calorie malnutrition (Acute) Serum calcium elevated (Acute) At risk for osteoporosis (Acute) Prednisone, Chemo/Radiation (2023) Loss of eyelashes (Acute) Cancer of oral cavity (Acute) [facility] [place].24 note.HE Cancer related pain (Acute) 04/08/24 [facility] [place] Dysphagia (Acute) 04/08/24 [facility] [place] 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 Pure hypercholesterolemia (Acute) Referred otalgia of left ear (Acute) Giant cell arteritis (Acute 2008) Recurrence of symptoms 10/2022 ILD (interstitial lung disease) (Acute) Facial numbness (Acute) chin, @ region resting on PFT equipment TMJ inflammation (Acute) from clenching? positioning? during PFT (~05/22/23) Lip pain (Acute) inner lip pain, into left inner cheek (apthous ulcer? thrush? referred jam/TMJ pain?) Pain in lower jaw (Acute) MEHUL treated with BiPAP (Acute) Bronchiectasis (Acute) Dyspnea on exertion (Acute) Pulmonary emphysema (Acute) Benign essential hypertension (Acute 04/10/13) Fall (Acute) Diarrhea (Acute) Prediabetes (Acute) 10/2022: 5.9 .. 09/2021: 5.7.. Bronchitis (Acute) Hearing loss, bilateral (Acute) Fatigue (Acute) feeling lazy, but chemo? rad? cancer + post fx back Discharged from [facility] 05/19: Encephalopathy and UTI - Ciprofloxacin, magnesium Seen at [facility] ED 05/21: Fall, rib contusion, fracture right great toe - Can wear postop shoe and tape toe to next toe-- Pt reports she is getting better everyday and goes to the cancer center daily for treatment-- Macrocytosis (Acute) Hypokalemia (Acute) PAD (peripheral artery disease) (Chronic) focal rt common iliac artery stenosis per [facility] notes, ID in 2019 Peripheral vascular disease (Chronic) Orthostasis (Acute) Temporal arteritis (Acute) Depressive disorder, not elsewhere classified (Acute 10/12/11) Esophageal reflux (Acute 12/10/12) EGD 05/25/13 KD: mild antritis and distal esophagitis; int metaplasia, no dysplasia Allergic rhinitis, unspecified (Acute 12/10/12) Leukoplakia of oral cavity (Acute) Anxiety and depression (Chronic) GERD (gastroesophageal reflux disease) (Chronic) Medical History Acute UTI VTE (venous thromboembolism) 04/08/24 [facility] [place] Primary osteoarthritis of right hip Periodic limb movement disorder Primary osteoarthritis of left knee (~07/2023) Rheumatology Trigeminal neuralgia of left side of face questionable -- was this the oral cancer? Other pulmonary embolism without acute cor pulmonale (Unknown) Massive PE, Apr 08, 2022 per pt report .. [facility] [place] [place].HE Former smoker quit 23 yrs ago! Neoplasm of unspecified behavior of bone, soft tissue, and skin Lumbago (12/10/12) Osteoarthritis DJD (degenerative joint disease) Anticoagulant long-term use Xarelto.. Hx Eliquis, PE, 2019 Polymyalgia rheumatica (10/12/11) Urinary bladder incontinence (~04/2024) 04/27/24 intermittent and U/A done at [facility]/Onc Buccal mass Primary hypertension Hx of adenomatous colonic polyps (~05/2019) villous adenoma History of pulmonary embolism Pulmonary embolism 2019 .. Eliquis, then Xarelto.. Diverticulosis 05/12/[address] Mariela Arizmendi, [facility] Colon polyps Abnormal colonoscopy (11/11/15) 11/11/15 Dr Brizuela, sessile serrated adenoma, repeat 3 years. mg Adenomatous colon polyp 11/11/15 Dr Brizuela, sessile serrated adenoma, repeat 3 years. mg Benign paroxysmal vertigo (10/12/11) Midline cystocele (12/10/12) pt. unsure Obstructive sleep apnea (adult) (pediatric) (01/19/13) Stopped BIPAP, 2020. severe, Dr. Greer, on auto Bi-Level bipap Obesity (12/10/12) Restless legs (01/19/13) Dr. Greer Sensorineural hearing loss, bilateral (06/03/14) Tinnitus (06/03/14) Vertigo (06/03/14) Serrated polyp of colon (11/11/15) Hyperlipemia Surgical History Status post gastrostomy tube placement, follow-up exam (~03/26/24) History of temporal artery biopsy Hx of colonoscopy History of cardiac cath Hysterectomy, Laproscopic Bilateral salpingectomy with oophorectomy (~12/2006) Family History Sister Cancer Breast cancer Father Heart disease Mother Heart disease Brother Heart disease [place] Social History Smoking/Tobacco Use Status: Former Tobacco Use Quit Date: 09/02/99 Tobacco: How many years used: 20 Smoking risk assessment performed?: Yes Alcohol Intake: former Drug use: Never Substance use type: does not use Adopted: No Caregiver/Support person: No Foster care: No Housing: house Number of Children: 3 number of grandchildren: 4 Communication Needs: Hard of Hearing Education Level: high school current occupation: Retired Pets and animals: Yes Pets and animals: dog(s) Sexually active: No Do you think of yourself as: straight/heterosexual Current gender identity: female What is your relationship status?: How often do you talk on the phone with friends or family?: three or more times per week How often do you get together with friends or relatives?: once per week Do you belong to any clubs or organized social groups?: no Panel score (0-1 are the most socially isolated patients): 2 What type of physical activity do you participate in: none Dilia/Worship: Episcopal Special dilia needs: No Seatbelt use: always Drive intox or ride w/intox cdl dedicated truck driver: No Do you feel safe at home: Yes Do you feel safe in your relationship?: Yes Additional Social history: Lives with of 55 years in [place]. She has 3 kids who live close. 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 Time Spent with Patient Time Spent with Patient: 70-84 minutes4 Time was spent: preparing to see the patient(eg.review tests), obtaining and/or reviewing separately otained hiistory, ordering medications,tests, procedures, referring, communicating with other health transitional care manager, indepentently interpreting results, counseling the patient and care coordination
[2025-04-19 12:33] VITALS: BP 121/51; PULSE 60; RESP 17; TEMP 36.4; O2SAT 97
--- NOTE | 2025-04-19 12:47 | PDOC.HHF2F_ITS ---
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 The fall was non injurious and was preceded by weakness and numbness along the right side of her leg, arm and torso. Symptoms largely resolved within minutes, however she continued to have some weakness and her right face started to be slightly numb, so she went to her PCP who sent her to the ED. She also fell on April 04 and was seen in the ED. She saw her PCP April 02 for fatigue found to be due to hypokalemia and hypoglycemia. In the ED, BP elevated 150's / 50's, otherwise vitals unremarkable. NSR on EKG. Labs significant only for mildly increased creatinine 1.2 with baseline at 1.0. CT brain / CTA head and neck showed no acute pathology, with evidence of previous left cerebellar infarct and chronic disease. The patient was admitted to the medical surgical floor to the hospitalist service as per [facility] [place] teleneurology recommendations for observation, MRI, echo, for TIA - stroke work-up. 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 Lipid panel remarkable for triglycerides at 176 and high intensity statin therapy was increased to maximum dosing, potassium level corrected to 4.0 s/p supplementaion. MRI brain without significant acute intracranial findings or evidence suggestive of acute ischemic event and is similar to imaging from 12/31/24 with improved left mastoid air cells fluid collection; also unchanged mild mucosal thickening in left maxillary sinus.. An echocardigram in 2019 was w/o PFO findings. US Echocardiogram completed with LVEF around 60%,mild mitral, tircuspid and pulmonic valves regurgitation on preliminary report. 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 Recommendations for PCP follow-up: Now on high intensity statin maximal dosing - please f/u labs A1C 5.8, triglycerides 176 Consider neurology referral Follow-up on official echocardiogram report Discussed with Dr. Sauceda Physical Therapist: Check all that apply Increase strength & endurance for safe mobility at home: Ordered To design/establish home maintenance program: Ordered Fall reduction therapy program for patient with history of frequent falls: Ordered Home safety evaluation and teaching/gait training including stair management (if applicable): Ordered Occupational Therapist: Evaluate and treat for patient unable to perform ADL/IADL/self-care: Ordered Upper extremity strengthening, range and motion: Ordered Home Bound Status Requires the aid of supportive device (check all that apply): Walker Describe why leaving home would require a considerable and taxing effort: Requires frequent rest periods Encounter Date and Reason: I certify that a FTF encounter for this patient was performed on April 19, 2025 and that such encounter was related to the primary reason the patient requires home health services. The encounter was conducted in the following manner: * By me as the certifying physician, OUTDOOR ADVERTISING LEASING AGENT, PA or * By an inpatient physician, OUTDOOR ADVERTISING LEASING AGENT or PA during an inpatient stay who communicated findings to me, Certification And Authentication I certify that I composed the above information based on my clinical judgment relating to this patient's medical condition and, if applicable, clinical findings communicated to me by the NPP or inpatient physician who performed the FTF encounter. Name of Provider that will be monitoring home health services: Eli Polanco
[2025-04-19 13:19] LABS: Anion Gap 8.5 mmol/L (3-11); BUN 32 mg/dL (7-18); CO2 25.5 mmol/L (21.0-32.0); Calcium 9.5 mg/dL (8.5-10.1); Chloride 105 mmol/L (98-107); Estimated GFR 58.39 (mL/min/1.73m2); Glucose 134 mg/dL (74-106); Potassium 4.6 mmol/L (3.5-5.1); Sodium 139 mmol/L (136-145)
--- NOTE | 2025-04-19 14:11 | PT.INTREAT ---
PT Notes Visit Reasons: TIA (cardiology) Date: 04/19/2025 PRECAUTIONS: Fall, standard, Activity as tolerated. SUBJECTIVE: Pt unavailable am having MRI and echo, Pt approached for therapy in the afternoon prior to DC for stair training (7steps to get inside house). VITALS: monitored via monitor worker (30days) Therapeutic Activities [id number]: Direct one-on-one instruction in dynamic activities to improve functional performance. ?? BED MOBILITY/TRANSFERS? Rolling L/R: independent Supine-sit: ?independent ? Sit-supine: ? independent ? Sit-stand: ? independent? Stand-sit: ?independent? Bed-Chair:? ?independent ? Chair-bed: independent Provided skilled cues and instruction on performance and technique throughout. Gait Training [id number]: Direct one-on-one instruction and skilled instruction in: Employing an assistive device Modified weight-bearing status Movement sequencing Turning and movement with proper form Provided verbal cues for equipment management and technique Provided instruction in gait pattern Patient education regarding pacing and breathing techniques to maximize activity tolerance? GAIT? Assistive Device: ??FWW, 4WW, no AD ? Weight bearing: FWB Assist: ?supervision? Distance:?? 100' FWW, 100' 4WW, 100' w/o AD? Deviation: ? unremarkable ? STAIRS:? 6 steps x4, 4 steps x6 bilateral handrail step over step supervision ? ASSESSMENT:?Pt education about energy conservation strategies, tolerated activity well did not have SOB during session, vitals WNL. PLAN: Continue with balance training, global strengthening and general conditioning for improved safety, mobility and activity tolerance until pt is ready for DC. TREATMENT CODE/TIME: 82317x7 10mins
--- NOTE | 2025-04-19 14:15 | PHA.REVIEW2 ---
Pharmacy Admission Review Admission Clinical Review Admission Pharmacy Review: History of squamous cell carcinoma (Acute) Chronic hypokalemia (Acute) Current chronic use of systemic steroids (Acute) TIA (transient ischemic attack) (Acute) ILD (interstitial lung disease) (Acute) Benign essential hypertension (Acute 04/10/13) Hypokalemia (Acute) Temporal arteritis (Acute) clarithromycin Allergy (Severe, Verified 04/16/25 14:55) HIVES Penicillins Allergy (Severe, Verified 04/16/25 14:55) HIVES tetracycline Allergy (Severe, Verified 04/16/25 14:55) HIVES, HALLUCINATIONS eszopiclone (Eszopiclone) Allergy (Unknown, Verified 04/16/25 14:55) pt unsure of reaction telithromycin (Telithromycin) Allergy (Unknown, Verified 04/16/25 14:55) pt unsure raloxifene HCl (From Evista) Adverse Reaction (Intermediate, Verified 04/16/25 14:55) BODY ACHES sulfamethoxazole (From Bactrim) Adverse Reaction (Intermediate, Verified 04/16/25 14:55) HEADACHE,VOMITING trimethoprim (From Bactrim) Adverse Reaction (Intermediate, Verified 04/16/25 14:55) HEADACHE,VOMITING alendronate sodium Adverse Reaction (Mild, Verified 04/16/25 14:55) BODY ACHE codeine Adverse Reaction (Mild, Verified 04/16/25 14:55) GI UPSET risedronate sodium (From Actonel) Adverse Reaction (Mild, Verified 04/16/25 14:55) BODY ACHES Bisphosphonates Adverse Reaction (Unknown, Verified 04/16/25 14:55) achy joints hydrocodone (Hydrocodone) Adverse Reaction (Unknown, Verified 04/16/25 14:55) vomitting Macrolide Antibiotics Adverse Reaction (Unknown, Verified 04/16/25 14:55) vomitting and hallucinations morphine Adverse Reaction (Unknown, Verified 04/16/25 14:55) pt. felt like she was floating, states she thinks she got to Sulfa (Sulfonamide Antibiotics) Adverse Reaction (Verified 04/16/25 14:55) Other (See Comment) Resuscitation Status Full Code Height 5 ft 4 in Weight 75.75 kg Pharmacy Admission Review Renal Dosing Renal Dosing: BUN 32 mg/dL (7-18) H 04/19/25 12:15 Creatinine 1.0 mg/dL (0.55-1.02) 04/19/25 12:15 Medications needing adjustments: Reviewed (Patient's Crcl as of 04/19 is 47.69ml/min, none of her medications need dose adjustments currently.) Anticoagulation Anticoagulation: Hgb 12.8 g/dL (11.2-15.7) 04/18/25 06:01 Hct 39.6 % (36.0-46.0) 04/18/25 06:01 Plt Count 183 10^3/uL (130-400) 04/18/25 06:01 INR 1.0 (0.9-1.1) 04/16/25 16:30 Creatinine 1.0 mg/dL (0.55-1.02) 04/19/25 12:15 Patient's H&H stable, takes rivaroxaban 10mg daily at home. Regimen continued for prophylaxis DVT Prophylaxis: Reviewed Medications: Rivaroxaban Relevant Labs Relevant Labs: Sodium 139 mmol/L (136-145) 04/19/25 12:15 Potassium 4.6 mmol/L (3.5-5.1) 04/19/25 12:15 Chloride 105 mmol/L (98-107) 04/19/25 12:15 Magnesium 2.1 mg/dL (1.8-2.4) 04/17/25 06:06 Electrolytes have been stable over the last two days DM Control DM Control: No record of DM mentioned in H&P Cardiac Review Cardiac Review: Blood Pressure 121/51 Blood Pressure 129/65 Blood Pressure 108/63 Troponin I 9 ng/L (<or=51) 04/16/25 19:20 QTc Review QTc: Reviewed List meds needing interventions: QTc report on 04/16/25 was 404. Patient's current meds does not need intervention at this time Home Meds Home Med List reviewed: Reviewed (Amlodipine held for permissive HNT, SBP read in the ED was 80. Plan was to give for SBP greater than 160) Current Meds Current Medication Order Review: Reviewed
== END 2025-04-19 14:46 | disposition home health service (06) ==
LOC: ER 21:09 → MS 21:48
PROVIDERS: Hospitalist; Admitting Provider Family Medicine; Emergency Provider Emergency Medicine; PCP Nurse Practitioner Family; Responsible Provider Nurse Practitioner Acute Care; Visit Provider Family Medicine
DX: G45.9 Transient cerebral ischemic attack, unspecified (principal); G81.91 Hemiplegia, unspecified affecting right dominant side; J98.2 Interstitial emphysema; I10 Essential (primary) hypertension; K21.9 Gastro-esophageal reflux disease without esophagitis; R29.6 Repeated falls; R20.2 Paresthesia of skin; R53.83 Other fatigue; I37.1 Nonrheumatic pulmonary valve insufficiency; I08.1 Rheumatic disorders of both mitral and tricuspid valves; E78.00 Pure hypercholesterolemia, unspecified; M31.6 Other giant cell arteritis; G47.33 Obstructive sleep apnea (adult) (pediatric); R73.03 Prediabetes; Z79.899 Other long term (current) drug therapy; E87.6 Hypokalemia; W19.XXXA Unspecified fall, initial encounter; Z79.52 Long term (current) use of systemic steroids; Z79.01 Long term (current) use of anticoagulants; Z86.711 Personal history of pulmonary embolism; I73.9 Peripheral vascular disease, unspecified; F32.A Depression, unspecified; Z85.818 Personal history of malignant neoplasm of other sites of lip, oral cavity, and pharynx
CPT/HCPCS: 00123; 36415; 36416; 70496; 70498; 80048; 80053; 80061; 82962; 85027; 93005; 93270; 94640; 97110; 97162; 97530; 99285; 70551; 81003; 81015; 83735; 84484; 85025; 85610; 93010; 93306; 94664; 99222; 99233; 99239; G0378; J3490; J7512

== ENCOUNTER 2025-04-19 13:39 | Outpatient (CLI) | payer MEDICARE, SELFPAY | END 2025-04-19 13:40 | disposition home or self-care (01) | PROVIDERS: PCP Nurse Practitioner Family; Visit Provider Nurse Practitioner Family | DX: G45.9 Transient cerebral ischemic attack, unspecified (principal) | CPT/HCPCS: 93270 ==

== ENCOUNTER 2025-05-11 07:05 | Outpatient (CLI) | payer MEDICARE, SELFPAY ==
--- NOTE | 2025-05-11 09:39 | W.CARDEVENT ---
Date of service: 05/11/25 Time of Service: 09:39 Cardiac Event Recorder Referring Provider:: Eli Polanco Indications:: TIA Cardiac Event Note: This is a cardiac event monitor. Patient was monitored for 1 day Rhythm throughout was sinus with an average heart rate of 60 No significant dysrhythmias were recorded There did not appear to be any symptoms
== END 2025-05-11 07:06 | disposition home or self-care (01) ==
LOC: CARDOPNVT 07:05
PROVIDERS: PCP Nurse Practitioner Family; Visit Provider Internal Medicine Cardiovascular Disease
DX: G45.9 Transient cerebral ischemic attack, unspecified (principal)
CPT/HCPCS: 93272; 99214

== ENCOUNTER → 2025-05-11 12:24 | Outpatient (BNVA) | payer MEDICARE, SELFPAY | PROVIDERS: PCP Nurse Practitioner Family; Referring Provider Nurse Practitioner Family; Visit Provider Psychiatry & Neurology Neurology | DX: M54.2 Cervicalgia (principal); H53.2 Diplopia; I63.9 Cerebral infarction, unspecified; E11.59 Type 2 diabetes mellitus with other circulatory complications; I10 Essential (primary) hypertension | CPT/HCPCS: 99214 ==